=== PATIENT | female | born 1985 | race Caucasian/White ===

== ENCOUNTER 2017-12-06 04:38 | Emergency (ER) | payer MEDICAID, SELFPAY ==
[2017-12-06 04:38] VITALS: BP 155/90; PULSE 81; RESP 24; TEMP 36.9; O2SAT 98; BMI 36.1
--- NOTE | 2017-12-06 04:50 | CT_ITS ---
STUDY: CT ABDOMEN AND PELVIS WITHOUT CONTRAST REASON FOR EXAM: Female, 32 years old. Right lower quadrant pain, nausea, prior , history of asthma and diabetes. RADIATION DOSAGE (If Supplied By Facility): CTDIvol = ( 17.84 ) mGy, DLP = ( 976.31 ) mGycm TECHNIQUE: Transaxial 2.5 mm images were obtained from the dome of the diaphragm to the symphysis pubis without oral contrast, and without intravenous contrast. Sagittal and coronal images were reconstructed. This examination is limited for the evaluation of gastrointestinal, solid organs and vascular structures due to the lack of intravenous and oral contrast. There is obesity, the entirety of soft tissue is not imaged. Individualized dose optimization techniques were used for this CT. COMPARISON: None. FINDINGS: The visualized lung bases are unremarkable. The visualized portions of the heart are within normal limits. Streak artifact caused by metallic left nipple jewelry. Normal liver. Normal gallbladder heterogeneous lumen and extrahepatic biliary system. Normal spleen. Normal pancreas. Normal bilateral adrenal glands. Normal right kidney. Normal left kidney. Uro Normal visualized stomach. Normal small intestine. Normal colon. The appendix is visualized and appears normal. Image [id number] series 2. Normal abdominal aorta. Normal inferior vena cava. There is borderline retroperitoneal lymphadenopathy with enlarged nodes no greater than 10mm in the short axis diameter. Normal urinary bladder. Normal visualized uterus and adnexa. There are prominent tortuous pelvic vessels possible varices. There is a small umbilical and infraumbilical hernia containing fat. Postsurgical changes anterior lower abdominal wall consistent with history. Mild degenerative changes of the lower lumbar facet joints. Sclerosis of the bilateral sacroiliac joints along the iliac side consistent with sacroiliitis condensans. CT/Abdomen/Pelvis without Cont IMPRESSION: Heterogeneous gallbladder lumen may be due to small sludge or tiny calculi. No gallbladder inflammation or biliary obstruction. There is no obstructive uropathy, obstructive renal or ureteral calculi. There is no appendicitis, colitis, diverticulitis, ascites, abscess, collection, perforation or obstruction. Possible pelvic varices. Borderline sized indistinct retroperitoneal lymph nodes of unclear etiology. Other nonacute findings as outlined above. Electronically Signed: Leanne Monroy MD at 6:07 EDT , Service support ,
[2017-12-06] MEDS: 0.9% Normal Saline 1,000 ML 125 ML IV (04:56)
[2017-12-06] MEDS: Morphine 4 MG/ML Syringe IV (04:56)
[2017-12-06] MEDS: Ondansetron 4 MG/2 ML Vial IV (04:56)
[2017-12-06 05:23] LABS: Absolute Lymphocyte Count 2.13 X10^3/ul (0.83-4.51); Absolute Neutrophil Count 2.8 X10^3/uL (2.0-7.7); Basophil# 0.08 X10^3/uL; Basophil% 1.3 % (0-1); Eosinophil# 0.23 X10^3/uL; Eosinophils% 3.9 % (0-5); Hematocrit 39.4 % (37-47); Hemoglobin 13.2 g/dl (12.0-15.0); Lymphocyte # 2.13 X10^3/ul (4.0); Lymphocyte % 35.9 % (19-41); Mean Corp Hgb Conc 33.5 g/gl (32-36); Mean Corpuscular Hgb 29.9 pg (27.0-32.0); Mean Corpuscular Volume 89.1 fL (81-99); Mean Platelet Vol. 11.8 fl (6.2-12.0); Monocyte% 11.8 % (0-10); Neutrophil # 2.78 X10^3/uL (2.7-7.7); Neutrophil % 46.9 % (47-70); Platelet Count 159 K/mm3 (150-450); RBC Distribution Width CV 13.4 % (11.6-14.6); RBC Distribution Width SD 43.2 fl (35.1-43.9); Red Blood Count 4.42 M/mm3 (4.2-5.4); White Blood Count 5.9 K/mm3 (4.4-11.0)
[2017-12-06 05:25] LABS: POSITIVE COUNT NO; POSITIVE DIFFERENTIAL NO; POSITIVE MORPHOLOGY NO
[2017-12-06 05:30] LABS: AST(SGOT) 42 U/L (15-37); Alanine Aminotransfer ALT/SGPT 54 U/L (13-56); Albumin, Serum 3.2 g/dL (3.2-5.0); Alkaline Phosphatase 122 U/L (45-117); Anion Gap 9 (5-15); BUN 9 mg/dL (7-18); BUN/Creat Ratio 12.9 RATIO (10-20); Bilirubin, Direct 0.05 mg/dL (0.00-0.30); Calcium,Total 8.2 mg/dL (8.5-10.1); Chloride 107 mmol/L (98-107); EST Glomerular Filtration Rate 104 mL/min (>60); Est Glom Filt Rate - Afr Amer 126 mL/min (>60); Estimated Creatinine Clearance 113.24 ml/min; Globulin 3.5 g/dL (2.2-4.2); Glucose 136 mg/dL (74-106); Lipase 144 U/L (73-393); Protein, Total 6.7 g/dL (6.4-8.2); Sodium Level 141 mmol/L (136-145)
--- NOTE | 2017-12-06 05:35 | ED.VISSUMM ---
- ER Visit Summary Date of Service: 12/06/17 Chief Complaint: [] Right lower abdominal pain History of Present Illness: The patient is a 32 F [] with right lower abdominal pain for last 8 hours gradual onset continuous cramping sharp and dull in severity that is moderate. Nausea associated. Normal bowel movement. Recent. Normal. Use ibuprofen. No vaginal discharge. Physical Examination: [] Vital signs reviewed General: Well-nourished well-developed Head: Normocephalic atraumatic Eyes: Pupils equal round and reactive to light extraocular movements intact ENT: TMs clear no hemotympanum no trauma Neck: Nontender full range of motion Cardiovascular: Regular rate rhythm no murmurs normal S1-S2 Respiratory: No distress clear to auscultation bilaterally chest nontender Abdomen: Soft her right lower quadrant. No guarding or nondistended normal bowel sounds no masses Back: Nontender no CVA tenderness Extremities: Nontender active range of motion ?4 extremities no trauma Skin: Normal color no trauma Neuro alert oriented cranial nerves II through XII intact normal strength sensation reflexes Test Results: [] Emergency Department Course and Treatment: [] Given IV fluids Zofran and morphine. Lab work and CT abdomen pelvis obtained. It shows nothing acute. No leukocytosis. Alk phos 122 and AST of 42. These are only mildly elevated. Lipase negative. negative. CT abdomen pelvis shows no acute disease. No appendicitis. Patient given a dose of Dilaudid also for her pain. Her pain is resolved after dose of morphine and Dilaudid. At this time, do not feel the patient has an acute intra-abdominal emergency. I have a low suspicion for gallstones. There were not seen on CAT scan. She has no tenderness up high. All her tenderness is down low. Could be an ovarian cyst. Is not seen on scan. I do not think she has a torsion. I feel she can follow-up as an outpatient. Treatment Plan: [] Disposition: [] Impression: [] Right lower abdominal pain This note was generated with [employer] dictation software. It may contain incorrect words, spelling, and punctuation that were not noted in review of the chart prior to signing ED Disposition - Plan for ED Patient: Chief Complaint: Abd Pain Referrals: Care Physician,No Primary [Primary Care Provider] -
[2017-12-06 05:36] LABS: Pregnancy, Serum, hCG Quali. NEGATIVE Negative (0-9 Nonpreg)
[2017-12-06] MEDS: HYDROmorphone 0.5 MG/0.5 ML SYRINGE IV (06:00)
--- NOTE | 2017-12-06 06:23 | ED.DEP ---
ED Disposition - Plan for ED Patient: Disposition: Home or Assisted Living Chief Complaint: Abd Pain Instructions: ED Abdominal Pain Unkn Cause Prescriptions: Hydrocodone Bitart/Apap 5-325 [[place] 5MG-325MG] 1 tab PO Q6H PRN PRN 3 Days #10 tab PRN Reason: Pain Referrals: Care Physician,No Primary [Primary Care Provider] - Lorenzo Marie MD [STAFF PHYSICIAN] -
[2017-12-06 06:28] VITALS: BP 119/72; PULSE 77; RESP 18; O2SAT 95
== END 2017-12-06 06:41 | disposition home or self-care (01) ==
PROVIDERS: Emergency Provider Emergency Medicine
DX: R10.31 Right lower quadrant pain (principal); R11.0 Nausea; E66.9 Obesity, unspecified; J45.909 Unspecified asthma, uncomplicated; E11.9 Type 2 diabetes mellitus without complications; Z72.0 Tobacco use
CPT/HCPCS: 74176; 80048; 80076; 83690; 84703; 85025; 96361; 96374; 96375; 99284; J7030; J2405

== ENCOUNTER 2018-08-20 22:51 | Emergency (ER) | payer MEDICAID, SELFPAY ==
[2018-08-20 22:51] VITALS: BP 165/73; PULSE 87; PULSE 90; RESP 16; TEMP 36.7; O2SAT 96; O2SAT 98; BMI 35.5
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
--- NOTE | 2018-08-21 00:32 | ED.DEP ---
ED Disposition - Plan for ED Patient: Disposition: Home or Assisted Living Instructions: ED Contusion Upper Ext Referrals: Kyler Prasad MD [STAFF PHYSICIAN] - 1 Week if not improving Additional Instructions: Ice and elevate right hand to decrease pain and swelling. Motrin for pain and swelling and Tylenol. Follow-up if not improving.
[2018-08-21 00:34] VITALS: BP 124/82; PULSE 72; RESP 18; O2SAT 99
== END 2018-08-21 00:34 | disposition home or self-care (01) ==
PROVIDERS: Emergency Provider Emergency Medicine
DX: S60.221A Contusion of right hand, initial encounter (principal); Y04.0XXA Assault by unarmed brawl or fight, initial encounter; Y93.89 Activity, other specified; Y92.9 Unspecified place or not applicable; F31.9 Bipolar disorder, unspecified; E11.9 Type 2 diabetes mellitus without complications; Z79.899 Other long term (current) drug therapy; Z72.0 Tobacco use
CPT/HCPCS: 73130; 99282

== ENCOUNTER → 2019-07-16 13:36 | Outpatient (CLI) | payer MEDICAID, SELFPAY ==
[2019-07-16 10:17] VITALS: BMI 35.5
[2019-07-16 13:46] LABS: Mucous, Urine 0 SEEN /hpf (<or=2+)
[2019-07-16 13:51] LABS: Color, Urine Yellow (Yellow); Glucose, Dipstick 50 mg/dl (Normal); Ketone-Dipstick 5 mg/dl (Negative); Leukocyte Esterase-Dipstick 500 /ul (Negative); Nitrite-Dipstick Positive (Negative); Occult Blood-Urine 25 /ul (Negative); Protein-Dipstick 30 mg/dl (Negative); Specific Gravity, Urine 1.025 (1.002-1.030); Urine Bilirubin Dipstick Negative (Negative); Urine Clarity Cloudy (Clear); Urine Urobilinogen Normal (Normal)
[2019-07-16 13:58] LABS: Bacteria 1+ /hpf (None Seen); Red Blood Cells-Urine 0-5 SEEN /hpf (0-5); Squamous Epithelial Cells - UA 5-10 SEEN /hpf (5-10); Transitional Epithelial - Ur 0 SEEN /hpf (0-5); White Blood Cells 25-50 SEEN /hpf (0-5)
== END ==
PROVIDERS: Referring Provider Nurse Practitioner Family; Visit Provider Nurse Practitioner Family
DX: R30.0 Dysuria (principal)
CPT/HCPCS: 81001; 87077; 87086; 87088; 87186

== ENCOUNTER → 2020-02-15 12:42 | Outpatient (CLI) | payer MEDICAID, SELFPAY ==
[2019-07-16 10:17] VITALS: BMI 35.5
--- NOTE | 2020-02-15 12:50 | RAD_ITS ---
STUDY: X-RAY - CERVICAL SPINE REASON FOR EXAM: Female, 34 years old. CERVICAL RADICUL MAX -- BILAT NECK PAIN MORE ON L SIDE BUT RADIATES -- R ARM PAIN AND NUMBNESS -- X 1 WEEK -- NKI TECHNIQUE: 5 view(s) of the cervical spine were obtained including oblique views. COMPARISON: None FINDINGS: Normal anterior atlantoaxial articulation. Normal odontoid process. Normal cervical lordosis. Normal vertebral bodies and endplates. Normal disc space heights. Normal visualized intervertebral neuroforamina. The soft tissue structures are unremarkable. RAD/Cerv Spine 4 or 5 Views IMPRESSION: Normal x-ray examination of the visualized cervical spine. Electronically Signed: Luis Cat, at 15:38 EDT , Service support ,
== END ==
PROVIDERS: PCP Internal Medicine; Referring Provider Chiropractor; Visit Provider Chiropractor
DX: M54.12 Radiculopathy, cervical region (principal)
CPT/HCPCS: 72050

== ENCOUNTER 2020-10-10 05:35 | Emergency (ER) | payer MEDICAID, SELFPAY ==
[2020-06-17 15:38] VITALS: BMI 37.3
[2020-10-10 05:38] VITALS: BP 175/99; PULSE 69; RESP 16; TEMP 36.4; O2SAT 99; BMI 38.3
--- NOTE | 2020-10-10 05:50 | RAD_ITS ---
STUDY: X-RAY - UNILATERAL RIBS ( LEFT ) WITH CHEST REASON FOR EXAM: Female, 34 years old. pain, injury TECHNIQUE - RIBS: 4 view(s) of the ribs. TECHNIQUE - CHEST: Single frontal view of the chest. COMPARISON: None. FINDINGS - RIBS: Normal visualized ribs without a demonstrated fracture. FINDINGS - CHEST: The lungs are clear and expanded. There is no demonstrated pleural abnormality. Normal size heart. Normal mediastinum and akbar. Normal visualized pulmonary arteries. Normal visualized aortic arch and descending thoracic aorta. Normal visualized thoracic spine. Normal visualized ribs, clavicles, and shoulders. There is no demonstrated abnormality of the visualized soft tissue structures of the upper abdomen. RAD/Ribs Uni Min 3V w/PA Chest IMPRESSION: RIBS: Normal x-ray examination of the ribs. CHEST: Normal x-ray examination of the chest. Electronically Signed: Tim Bryant DO at 6:24 EDT Tel , Service support ,
[2020-10-10] MEDS: Lidocaine 5% Patch 1 PATCH TOPICAL (05:59)
[2020-10-10] MEDS: morphine 8 MG/ML Syringe IM (05:59)
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
[2020-10-10 07:01] VITALS: BP 160/79; PULSE 80; RESP 16; O2SAT 96
== END 2020-10-10 07:02 | disposition home or self-care (01) ==
PROVIDERS: Emergency Provider Emergency Medicine; PCP Internal Medicine
DX: S20.212A Contusion of left front wall of thorax, initial encounter (principal); F17.210 Nicotine dependence, cigarettes, uncomplicated; X58.XXXA Exposure to other specified factors, initial encounter
CPT/HCPCS: 71101; 96372; 99283

== ENCOUNTER 2021-01-07 17:55 | Outpatient (RCR) | payer MEDICAID, SELFPAY ==
[2020-12-30 13:38] VITALS: BMI 38.3
--- NOTE | 2021-01-07 18:41 | HP.PTEVAL_ITS ---
Patient's Visit Information CHRISTINE ESCOBEDO is a 35 year old F referred to Physical Therapy by ADRIANA Varghese with a diagnosis of R ankle strain of ankle and foot.. Date of Evaluation: 01/07/21 Physical Therapist: ALEX Savage - Visit Plan Frequency: 2x /Week Duration: 6 Weeks Plan: 2X/ week for 6 weeks for R ankle AROM, PROM, AAROM, stretching,, decrease swelling, strength, balance and proprioception, gait training with HEP. HEP: seated heel and toe raises, towel gastroc stretch, toe scrunches - Subjective Pt stepped in a hole. She has broken it as well. This last time she stepped in a hole and rolled it. It happened about 3 weeks ago. [facility] and he was put in a brace and is to wear it for 10 days. X-rays showed no fracture. She was not put on crutches. Now it is tolerable but she has not bee n on it all day. When she is on it, it swells and is really hard to walk on it and she is getting pain in her calf and in her knee. She has lost some movement in her toes too. The swelling is tolerable unless she is on her foot. It feels like it is getting better it is just slow. She is back to work 5 days a week. - Pain R ankle pain Pain Intensity (Out of 10): 4 Pain Intensity Range: 8 Comment: especially on days when on feet - Objective Gait: walks with decrease stance time on the R LE and decreased heel to toe gait pattern. R ankle AROM: -12 degrees from neutral and 40 PF, INV 24 degrees and EV to neutral. L ankle AROM: 7 DF, 65 PF, 40 INV, 12 EV. R Fig 8 55.1, Medial to lat mal 27.7. L fig 8 523 25.4. Palpation: tender along the ligaments along the R lateral ankle... very swollen. Increase pain with active L ankle DF, stretching with a towel roll. Advised pt to keep moving her ankles to do the exercises but not to go into pain - Goals Goal 1:: I HEP Goal Time Frame: 4-6 Weeks Goal 2:: Increase L ankle AROM 5 degrees DF and 60 degrees PF Goal Time Frame: 4-6 Weeks Goal 3:: be able to walk without an antalgic gait Goal Time Frame: 4-6 Weeks Goal 4:: Increase L ankle strength to 4/5 all 4 planes Goal Time Frame: 4-6 Weeks Goal 5:: Be able to slb on the L for 30 sec with good stability and no pain Goal Time Frame: 4-6 Weeks - Rehabilitation Potential Rehabilitation Potential: Good - Anticipated Interventions Patient/Client Instruction: Educate patient on: Condition, Plan of Care For the Purpose of:: To decrease pain, To decrease swelling/inflammation, To increase ROM, To improve nutrient delivery to tissue, To increase oxygenation perfusion, To improve muscle performance and motor function, To improve ability to perform ADL's, To increase tolerance to activity/condition/position, To improve performance and independence with ADL's, To decrease level of supervision to perform tasks, To improve ability of physical actions for home/community/work/leisure, To improve gait and locomotor functions, To improve health of tissue, To decrease soft tissue restriction, To increase flexibility/ROM, To improve balance, To improve safety with gait Therapeutic Exercise to Include: Strength training, Balance training, Flexibilty training, Gait and locomotor training, Neuromotor development, Passive ROM, Active ROM For the Purpose of:: To decrease pain, To decrease swelling/inflammation, To increase ROM, To improve nutrient delivery to tissue, To improve muscle performance and motor function, To improve ability to perform ADL's, To increase tolerance to activity/condition/position, To improve performance and independence with ADL's, To decrease level of supervision to perform tasks, To improve ability of physical actions for home/community/work/leisure, To improve gait and locomotor functions, To improve health of tissue, To decrease soft tissue restriction, To increase flexibility/ROM, To improve endurance, To improve balance, To improve safety with gait Functional Training to Include: Gait training For the Purpose of:: To improve gait and locomotor functions, To improve safety with gait Manual Therapy Techniques to Include: Mobilization, Passive ROM, Soft tissue mobilization For the Purpose of:: To increase ROM, To improve nutrient delivery to tissue, To improve muscle performance and motor function, To improve ability to perform ADL's, To increase tolerance to activity/condition/position, To improve performance and independence with ADL's IF ES: Yes Cryotherapy (ice pack, ice massage): Yes Thermo therapy (hot pack): Yes For the Purpose of:: To decrease pain, To decrease swelling/inflammation, To increase ROM, To improve nutrient delivery to tissue Thank you for the opportunity to evaluate your patient. For Medicare and Medicare HMO plans, please review the plan of care and approve it. It will need to be FAXED BACK to us at [phone] for Medicare purposes. For Medicare only, by signing this I certify the plan of care. Please let me know if there are questions or concerns regarding this plan of care. Physician Signature: Date:
--- NOTE | 2021-04-28 08:55 | HP.PT.NRP ---
CHRISTINE ESCOBEDO was seen in my office for initial evaluation on 01/07/21. The following Plan of Care was established for this patient: Initial Frequency: 2x /Week Initial Duration: 6 Weeks Patient/Client Instruction: Educate patient on: Condition, Plan of Care For the Purpose of:: To decrease pain, To decrease swelling/inflammation, To increase ROM, To improve nutrient delivery to tissue, To increase oxygenation perfusion, To improve muscle performance and motor function, To improve ability to perform ADL's, To increase tolerance to activity/condition/position, To improve performance and independence with ADL's, To decrease level of supervision to perform tasks, To improve ability of physical actions for home/community/work/leisure, To improve gait and locomotor functions, To improve health of tissue, To decrease soft tissue restriction, To increase flexibility/ROM, To improve balance, To improve safety with gait Therapeutic Exercise to Include: Strength training, Balance training, Flexibilty training, Gait and locomotor training, Neuromotor development, Passive ROM, Active ROM For the Purpose of:: To decrease pain, To decrease swelling/inflammation, To increase ROM, To improve nutrient delivery to tissue, To improve muscle performance and motor function, To improve ability to perform ADL's, To increase tolerance to activity/condition/position, To improve performance and independence with ADL's, To decrease level of supervision to perform tasks, To improve ability of physical actions for home/community/work/leisure, To improve gait and locomotor functions, To improve health of tissue, To decrease soft tissue restriction, To increase flexibility/ROM, To improve endurance, To improve balance, To improve safety with gait Functional Training to Include: Gait training For the Purpose of:: To improve gait and locomotor functions, To improve safety with gait Manual Therapy Techniques to Include: Mobilization, Passive ROM, Soft tissue mobilization For the Purpose of:: To increase ROM, To improve nutrient delivery to tissue, To improve muscle performance and motor function, To improve ability to perform ADL's, To increase tolerance to activity/condition/position, To improve performance and independence with ADL's IF ES: Yes Cryotherapy (ice pack, ice massage): Yes Thermo therapy (hot pack): Yes For the Purpose of:: To decrease pain, To decrease swelling/inflammation, To increase ROM, To improve nutrient delivery to tissue This patient was last seen in our office 01/07/21. Pertinent comments regarding their Physical therapy will appear below: JUSTIN PT as pt did not schedule any more other than her initial eval. At this point I will be discontinuing this patient from physical therapy. I would be happy to see this patient again in the future if found appropriate by the physician. Thank you! Yohana Arreola, ALEX Balance/Gait/Functional tests - Balance/Special Test Scores Lower Extremity Functional Score: 51
== END 2021-01-07 19:00 | disposition home or self-care (01) ==
LOC: PT 17:55
PROVIDERS: PCP Internal Medicine; Referring Provider Physician Assistant Surgical; Visit Provider Physician Assistant Surgical
DX: S96.911D Strain of unspecified muscle and tendon at ankle and foot level, right foot, subsequent encounter (principal)
CPT/HCPCS: 97161

== ENCOUNTER → 2021-01-13 | Outpatient (CLI) | payer MEDICAID, SELFPAY | END | disposition home or self-care (01) | LOC: LABSPEC 20:45 | PROVIDERS: PCP Internal Medicine; Visit Provider Physician Assistant Surgical | DX: R30.0 Dysuria (principal) | CPT/HCPCS: 87086; 87088 ==

== ENCOUNTER → 2021-01-21 | Outpatient (CLI) | payer MEDICAID, SELFPAY | END | disposition home or self-care (01) | LOC: LABSPEC 15:51 | PROVIDERS: PCP Internal Medicine; Visit Provider Physician Assistant | DX: U07.1 COVID-19 (principal); R43.0 Anosmia; R43.2 Parageusia | CPT/HCPCS: 87635; U0005; U0003 ==

== ENCOUNTER → 2022-05-28 | Outpatient (CLI) | payer MEDICAID, SELFPAY ==
[2022-05-28 12:44] LABS: Mucous, Urine 0 SEEN /hpf (<or=2+)
[2022-05-28 12:47] LABS: Color, Urine Yellow (Yellow); Glucose, Dipstick 1000 mg/dl (Normal); Ketone-Dipstick 5 mg/dl (Negative); Leukocyte Esterase-Dipstick 100 /ul (Negative); Nitrite-Dipstick Negative (Negative); Occult Blood-Urine 50 /ul (Negative); Protein-Dipstick 30 mg/dl (Negative); Specific Gravity, Urine 1.015 (1.002-1.030); Urine Bilirubin Dipstick Negative (Negative); Urine Clarity Sl. Cloudy (Clear); Urine Urobilinogen Normal (Normal); Urine pH 6.5 (5.0 - 8.0)
[2022-05-28 12:59] LABS: Bacteria 2+ /hpf (None Seen); Red Blood Cells-Urine 0-5 SEEN /hpf (0-5); Squamous Epithelial Cells - UA 5-10 SEEN /hpf (5-10); White Blood Cells 10-25 SEEN /hpf (0-5)
== END | disposition home or self-care (01) ==
LOC: LABSPEC 12:38
PROVIDERS: PCP Internal Medicine; Referring Provider Physician Assistant Surgical; Visit Provider Physician Assistant Surgical
DX: R30.0 Dysuria (principal)
CPT/HCPCS: 81001; 87077; 87086; 87088; 87186

== ENCOUNTER 2024-05-03 23:05 | Emergency (ER) | payer OTHER, SELFPAY ==
[2024-05-03 23:08] VITALS: BP 147/94; PULSE 109; RESP 24; TEMP 36.6; O2SAT 95; BMI 35.8
--- NOTE | 2024-05-03 23:17 | ED.VIS.DYS ---
HPI History of Present Illness Chief Complaint: Shortness of Breath [facility] Medical History (Updated 05/04/24 @ 00:[address] John Echevarria, DO) Contact with and (suspected) exposure to other viral communicable diseases Acute pharyngitis, unspecified Acute bronchitis, unspecified Sebaceous cyst of left axilla Encounter for screening for COVID-19 Home Medications ?Medication ?Instructions ?Recorded ?Last Taken ?Type ibuprofen 600 mg tablet 600 mg PO Q6H PRN PRN Pain Score 10/10/20 Unknown Rx 1-02/22 #20 tabs albuterol sulfate 90 mcg/actuation 2 inh inhalation Q6H PRN shortness 05/04/24 Unknown Rx breath activated powder inhaler of breath or wheezing #1 ea prednisone 50 mg tablet 50 mg PO DAILY 5 days #5 tabs 05/04/24 Unknown Rx Allergy/AdvReac Type Severity Reaction Status Date / Time No Known Allergies Allergy Verified 05/03/24 23:08 Surgical History History of Social History Smoking Status: Current every day smoker tobacco type: cigarettes alcohol intake: never EXAM Physical Exam Const Vital Signs: 05/03/24 23:08 05/03/24 23:26 05/04/24 00:02 Temperature 98 F Temperature Source Oral Pulse Rate 109 H 101 H Respiratory Rate 24 H 26 H Respiratory Effort Short of Breath Respiratory Depth Respiratory Pattern Tachypnea Normal Blood Pressure 147/94 H Blood Pressure Mean 111 Pulse Ox 95 Oxygen Delivery Method Room Air 05/04/24 00:03 05/04/24 00:33 Temperature Temperature Source Pulse Rate 91 Respiratory Rate 20 H Respiratory Effort Normal Non-Labored Respiratory Depth Normal Respiratory Pattern Normal Blood Pressure Blood Pressure Mean Pulse Ox 98 Oxygen Delivery Method Room Air MDM MDM MDM Narrative Medical decision making narrative: HISTORY OF PRESENT ILLNESS: 38-year-old female notes she has been sick for several weeks. She notes cough and occasional shortness of breath. Denies any shortness of breath here today. Denies chest pain. Notes she works as a [employer] and has been exposed to COVID and flu. She has not been tested as of yet. She is requesting a COVID and flu test. The patient denies recent surgery in the last 4 weeks or immobilization in the last 3 days, denies previous diagnosis of DVT or PE, hemoptysis, unilateral leg swelling or malignancy with treatment the last 6 months or palliative. No estrogen use noted. REVIEW OF SYSTEMS: Pertinent positives: Cough, shortness of breath Pertinent negatives: chest pain, fever, leg swelling PHYSICAL EXAM: Nursing triage notes reviewed, Vital signs reviewed Constitutional: please see [facility] HENT: MMM Eyes: Pupils equal round and reactive to light, Extraocular muscles intact Neck: No stridor, no JVD, full neck ROM Lungs: Clear to auscultation, coarse breath sounds, no wheezing or rales. No increased work of breathing, no conversational dyspnea, no accessory muscle use, no nasal flaring. No respiratory distress noted Heart: Regular rate and rhythm, No murmurs, No rubs and No gallops, 2+ distal pulses (radial, femoral, posterior tibial) in all extremities Abdomen: Soft, there is no tenderness, rigidity, rebound or guarding, no obvious peritoneal signs, no palpable pulsatile abdominal masses, no auscultated abdominal bruit : No CVAT Extremities: No edema Neuro: No new focal neurological deficits, cranial nerves II through XII intact, 5/5 strength in all present extremities. Intact sensation to light touch in all present extremities, 2+ reflexes bilateral patella tendons. Skin: No rash or lesions noted MEDICAL DECISION MAKING: Chief Complaint: Cough, shortness of breath External records reviewed: Reviewed prior allergies, problem list Factors affecting care: none Social determinants of health: none History obtained from others: none Consults: none [facility] Narrative: Patient was initially hemodynamically stable, tachycardic to 109, tachypneic to 24, she is afebrile and saturating well on room air. I considered the following differential diagnosis: COVID, flu, RSV, bacterial pneumonia Cannot test specifically for COVID RSV and flu as patient is having symptoms for weeks without benefit from knowing specific virus as there is no specific treatment. I obtained an x-ray to rule out bacterial pneumonia. Per patient's request I obtained a COVID flu and RSV swab. ALL IMAGES (IF OBTAINED) HAVE BEEN PERSONALLY REVIEWED AND INTERPRETED BY MYSELF. I have personally reviewed the patient's chest x-ray. Chest x-ray is unremarkable for pulmonary edema, pneumothorax, pneumonia or focal cardiopulmonary abnormality. Upon reassessment patient felt better after nebulizer albuterol. Heart rate improved to 90. Retrograde improved to 20. Lungs remain clear. The synthesis of the patient's history, physical exam, labs and images suggest likely bronchitis. No indication for antibiotics at this time. Will give steroids (prednisone 50 mg daily). Will give Tylenol and ibuprofen instructions. Will give as needed albuterol inhaler prescription as well. The patient is appropriate for discharge home. The patient and/or family, caregivers express understanding. The patient and/or family, caregivers agrees with the plan. Shared decision making: I will have a discussion with the patient and or visitors regarding risk/benefits of further testing or admission. They will be made aware of of the risk/benefits inherent in this decision they will be given the opportunity to voice understanding. Total critical care time today provided was at least 0minutes. This excludes separately billable procedures. Critical care time (if documented) is secondary to the patient having high probability of clinically significant/life threatening deterioration in the patient's condition which required my urgent intervention. Impression: 1. Cough 2. Dyspnea Dispo: Discharge home This note was generated with [employer] dictation software. It may contain incorrect words, spelling, and punctuation that were not noted in review of the chart prior to signing. Radiography Diagnostic Testing: Clinical Impression(s) from Imaging Studies Chest X-Ray 05/03/24 23:55 IMPRESSION: No radiographic evidence of acute cardiopulmonary disease. Electronically Signed: Denis Pennington MD at 0:27 EST Reading Location ID and State: [address] [place] [address] Tel , Service support , Discharge Plan Triage Chief Complaint: Shortness of Breath Other Complaint: Cold Sx ED Provider: John Echevarria Dx/Rx/DC Orders Clinical Impression: Acute bronchitis, unspecified Instructions: ED Bronchitis, No Antibiotic (Adult) Prescriptions: New prednisone 50 mg tablet 50 mg PO DAILY 5 Days Qty: 5 0RF albuterol sulfate 90 mcg/actuation aerosol powdr breath activated 2 inh inhalation Q6H PRN (Reason: shortness of breath or wheezing) Qty: 1 3RF No Action ibuprofen 600 mg tablet 600 mg PO Q6H PRN PRN (Reason: Pain Score 1-10/10) Qty: 20 0RF Primary Care Provider: Sammie Paulino NP Referrals: Sonia Kent MD [Med Staff - [employer] Operator] - Activity Restrictions/Additional Instructions: Thank you for trusting us with your care today! I suspect you are suffering from bronchitis which is inflammation of your airways. This is not caused by bacteria and therefore is not treated with antibiotics. I did prescribe you a short course of steroids to help with inflammation. I also prescribed albuterol inhaler to take as needed for additional assistance with breathing. Please take Tylenol (2 pills, 650 mg), ibuprofen (2 pills, 400 mg) every 6 hours as needed for pain and fever control. Please return to the emergency department if your symptoms change or worsen. Please follow with your primary care physician for further outpatient evaluation and management. Print Language: Andorran Disposition Disposition: Home, Self Care
[2024-05-03 23:26] VITALS: PULSE 101; RESP 26
[2024-05-03] MEDS: Albuterol 2.5 MG/3 ML VIAL.NEB. INHALATION (23:26)
--- NOTE | 2024-05-03 23:55 | RAD_ITS ---
EXAM: XR CHEST, 2 VIEWS CLINICAL INDICATION: cough TECHNIQUE: Frontal and lateral views of the chest. COMPARISON: Two-view chest 07/16/2021 FINDINGS: LUNGS AND PLEURAL SPACES: Unremarkable. No consolidation or edema. No pneumothorax. No effusion. HEART: Unremarkable. Cardiac silhouette not enlarged. MEDIASTINUM: Central airways and mediastinal contour are unremarkable. BONES/JOINTS: Unremarkable. No acute fracture. SOFT TISSUES: Unremarkable. RAD/Chest PA and Lateral IMPRESSION: No radiographic evidence of acute cardiopulmonary disease. Electronically Signed: Denis Pennington MD at 0:27 EST ,
[2024-05-04 00:03] VITALS: O2SAT 98
[2024-05-04 00:33] VITALS: PULSE 91; RESP 20; O2SAT 98
[2024-05-04 00:35] VITALS: BP 138/78; PULSE 91; RESP 20; TEMP 36.6; O2SAT 98
== END 2024-05-04 00:35 | disposition home or self-care (01) ==
PROVIDERS: Emergency Provider Emergency Medicine; PCP Nurse Practitioner Family; Visit Provider Emergency Medicine
DX: J20.9 Acute bronchitis, unspecified (principal); Z20.828 Contact with and (suspected) exposure to other viral communicable diseases; F17.210 Nicotine dependence, cigarettes, uncomplicated
CPT/HCPCS: 71046; 94640; 99283

== ENCOUNTER 2024-11-03 13:04 | Emergency (ER) | payer BC, SELFPAY ==
[2024-11-03 13:05] VITALS: BP 147/88; PULSE 101; RESP 16; TEMP 36.4; O2SAT 100; BMI 34.6
--- NOTE | 2024-11-03 13:26 | EX.ED.DYSGE1 ---
HPI History of Present Illness Chief Complaint: Abscess Informant: patient and parent Narrative Narrative: Here with mother increasing swelling left face near the ear, she tried to express it is only bloody drainage. No fever or chills. She is a diabetic. Feels more pressure in the area. Denies history of kidney injury. Prior similar symptoms: No PFSH PFSH Medical History Contact with and (suspected) exposure to other viral communicable diseases Acute pharyngitis, unspecified Acute bronchitis, unspecified Sebaceous cyst of left axilla Encounter for screening for COVID-19 Home Medications ?Medication ?Instructions ?Recorded ?Last Taken ?Type ibuprofen 600 mg tablet 600 mg PO Q6H PRN PRN Pain Score 10/10/20 Unknown Rx 1-10/10 #20 tabs cephalexin 500 mg capsule 500 mg PO Q6 #20 CAPSULES 11/03/24 Unknown Rx ibuprofen 600 mg tablet 600 mg PO Q6H PRN PRN pain #20 11/03/24 Unknown Rx TABLETS sulfamethoxazole 800 1 tab PO BID #10 TABLETS 11/03/24 Unknown Rx mg-trimethoprim 160 mg tablet Allergy/AdvReac Type Severity Reaction Status Date / Time No Known Allergies Allergy Verified 11/03/24 13:08 Surgical History History of Social History Smoking Status: Current every day smoker tobacco type: cigarettes alcohol intake: never ROS ROS ED Constitutional Constitutional ED: Denies fever(s) Cardiovascular Cardiovascular: Denies chest pain Respiratory/Chest Respiratory/Chest: Denies cough Gastrointestinal Gastrointestinal: Denies diarrhea or vomiting Musculoskeletal Musculoskeletal: Denies none Integumentary Reports abscess; Denies rash Neurologic Neurologic: Denies weakness EXAM Physical Exam Const Vital Signs: 11/03/24 13:05 Temperature 97.6 F L Temperature Source Oral Pulse Rate 101 H Respiratory Rate 16 Blood Pressure 147/88 H Blood Pressure Mean 107 Pulse Ox 100 Oxygen Delivery Method Room Air Positive well nourished and well developed General Appearance ED: well developed and NAD HEENT Reports moist mucous membranes HEENT Narrative: Left face superior to the tragus some tenderness very slight fluctuance mild erythema. Minimal erythema behind the ear. No auricular involvement at this time. No drainage. normocephalic Eyes General Eye ED: Yes normal appearance of both eyes Neck full ROM Chest Wall Chest: Negative for tenderness Resp normal respiratory effort and normal air movement Effort and Inspection: symmetric chest movement; Negative for respiratory distress Cardio regular rate, regular rhythm and no murmurs Peripheral Pulses: pulses 2+ throughout GI normal to inspection, nondistended, normoactive bowel sounds and non-tender Palpation: Negative for guarding or rebound tenderness present Extremity normal to inspection General Extremety ED: Negative for edema or tenderness General Extremity: Negative for edema Neuro oriented x3 and no sensory deficits noted Sensorium / Orientation: awake and alert Skin no rashes or lesions noted and no wounds MDM MDM MDM Narrative Medical decision making narrative: Interventions / MDM: Differential diagnosis: Facial cellulitis, history of diabetes Diagnosis considered but do not suspect: No abscess on needle decompression. My EKG interpretation: N/A Imaging independently reviewed and interpreted by myself: N/A External documents reviewed: N/A Test considered but not ordered:N/A ED course: Patient reports increasing pain swelling with bloody drainage at home. There is very minimal fluctuance however with patient reporting increasing swelling discussed needle decompression for which she agrees. Preparation being made. Oral Motrin Keflex Bactrim started. Procedure note: Verbal consent. Normal sterile conditions. Alcohol prep of the skin, 1 cc of 1% lidocaine used for local analgesia. Initial 18-gauge needle right through the center of fluctuance mild bloody drainage mild fluid drainage no exudates. Additional puncture inferior to this at the entrance of the initial analgesic placement. Again clear fluid no exudates. Patient tolerated procedure well. Patient be continued on antibiotics and NSAIDs. Return precaution discussed. Re-evaluation: stable Disposition discussed with patient/family/significant other: Patient and family Case discussed with consulting clinician: N/A This note was generated with [employer] dictation software. It may contain incorrect words, spelling, and punctuation that were not noted in checking the note before signing. Discharge Plan Triage Chief Complaint: Abscess ED Provider: Norman Martinez Dx/Rx/DC Orders Clinical Impression: Cellulitis of face, History of diabetes mellitus Instructions: Cellulitis Dc Prescriptions: New sulfamethoxazole-trimethoprim 800-160 mg tablet 1 tab PO BID Qty: 10 0RF cephalexin 500 mg capsule 500 mg PO Q6 Qty: 20 0RF ibuprofen 600 mg tablet 600 mg PO Q6H PRN PRN (Reason: pain) Qty: 20 0RF No Action ibuprofen 600 mg tablet 600 mg PO Q6H PRN PRN (Reason: Pain Score 1-10/10) Qty: 20 0RF Primary Care Provider: Sammie Paulino NP Referrals: Sammie Paulino NP, [employer] [Primary Care Provider] - 3-5 Days Activity Restrictions/Additional Instructions: Needle decompression in the ED there is no exudative drainage. Take and finish antibiotic as prescribed. Follow-up with your doctor. Print Language: Maori Disposition Disposition: Home, Self Care Discharge Date/Time: 11/03/24 15:10
--- OUTSIDE RECORDS SUMMARY | 2024-11-03 13:47 | XMS RPT_ITS | CCD ---
Author Organization [facility] Care Team Providers Care Longwall Foreman Name Role Phone CINDY SPARKS, DR GEOFFREY Camargo Primary Care Physician Dr. Geoffrey White Primary Care Provider Dr. Geoffrey White Referring Provider ADRIANA Toscano Attending Provider Geoffrey White MD Primary Care Provider Geoffrey White MD Primary Care Provider DR GEOFFREY WHITE MD Primary Care Physician Geoffrey White MD Primary Care Provider NO, DOCTOR ON Consulting Unavailable GIDEON ALFORD CNP Attending Unavailable GIDEON ALFORD CNP Primary Care Unavailable GIDEON ALFORD CNP Admitting Unavailable Dr. Geoffrey White Primary Care Provider Dr. Geoffrey White Referring Provider ADRIANA Ontiveros Attending Provider AXEL ALFORD DO Primary Care Physician GIDEON DOTY Primary Care Physicia n ROSY VALENZUELA Admitting Unavaila sugey CONWAY, GIDEON Sloan Primary Care Unava ilable ROSY VALENZUELA Referring Unavaila sugey STACY DO, DR QUINONEZ Attending Unavailable VIRGIL LUCERO, DR KENDAL Madera Attending Unavailable DR GEOFFREY WHITE MD Primary Care Unavailnamita e DEL ACOSTA DO Attending Unavailable AXEL ALFORD DO Primary Care Unavailable ALESSIA KAUR MD Attending Unavailable CINDY SPARKS, DR GEOFFREY Camargo Primary Care UnavailBRITNEY Galvez MD Attending Unavailable AXEL ALFORD DO Primary Care Unavailable GEOFFREY WHITE Primary Care Unavailable SAVANNAH VALVERDE Attending Unavailable LUPE GUTIERREZ Referring Unavailable GEOFFREY WHITE Primary Care Unavailable LUPE GUTIERREZ Attending Unavailable GEOFFREY WHITE Primary Care Unavailable Geoffrey White MD Primary Care Provider [phone] Lora PARKER, Gideon Primary Care Unavailable John Echevarria Attending Unavailable Medications Current Medications Medication Drug Class(es) Dates Sig (Normalized) Sig (Original) acetaminophen 325 mg / HYDROcodone bitartrate 5 mg oral tablet (4 sources) Opioid Agonist Start: 04-24-2022 acetaminophen-hydr ocodone 325 mg-5 mg oral tablet 0 Refill(s), 104.5 Start Date: 04/24/22 Status: Ordered Start: 12-06-2017 End: 12-12-2017 take 1 tablet by mouth every six hours as needed Hydrocodone-Acetaminophen Discontinued 1 TABLET PO EVERY 6 HOURS NEEDED 10 3 December 06, 2017 6:23am December 12, 2017 10:45am acetaminophen 325 mg / oxyCODONE hydrochloride 5 mg oral tablet (3 sources) Opioid Agonist Start: 12-13-2020 acetaminophen-oxyCODONE 325 mg-5 mg oral tablet 0 Refill(s), 104.5 Start Date: 12/13/20 Status: Ordered atorvastatin 20 mg oral tablet (1 source) HMG-CoA Reductase Inhibitor Start: 03-22-2023 atorvastatin 20 mg oral tablet Dose : 20 mg = 1 tab(s), Oral, Daily Start Date: 03/22/23 Status: Ordered ciprofloxacin 500 mg oral tablet (3 sources) Quinolone Antimicrobial Start: 03-24-2023 End: 03-31-2023 Cipro 500 mg oral tablet Dos e : 500 mg = 1 tab(s), Oral, q12h, X 7 day(s), # 14 tab(s), 0 Refill(s), 03/31/23 11:34:00 AM EST, Pharmacy: [facility] #[id number], 170.2, cm, 03/22/23 16:11:00 EST, Height, 109.9, kg, 03/22/23 16:24:00 EST, Dosing Weight Start Date: 03/24/23 Stop Date: 03/31/23 Status: Ordered Start: 07-18-2019 End: 05-26-2020 take 500 mg by mouth twice daily Ciprofloxacin Hcl Discontinued 500 MG PO TWICE A DAY July 18, 2019 9:12am May 26, 2020 1:07pm hold Macrobid while on this medication D3-50 50,000 UNIT CAPSULE (1 source) Start: 03-22-2023 D3-50 50,000 UNIT CAPSULE D3-50 50,000 UNIT CAPSULE, 1, 0 Refill(s), 109.1 Start Date: 03/22/23 Status: Ordered doxepin hydrochloride 75 mg oral capsule (1 source) Tricyclic Antidepressant Start: 03-22-2023 doxepin 75 mg oral capsule Dose : 75 mg = 1 cap(s), Oral, qHS Start Date: 03/22/23 Status: Ordered doxycycline monohydrate 100 mg oral capsule (2 sources) Tetracycline-class Drug Start: 03-11-2021 End: 05-28-2022 take 100 mg by mouth twice daily Doxycycline Monohydrate Active 100 MG PO TWICE A DAY March 11, 2021 6:51am ibuprofen 600 mg oral tablet (13 sources) Nonsteroidal Anti-inflammatory Drug Start: 08-27-2018 ibuprofen (MOTRIN) 600 mg tablet Take by mouth. 10/10/2020 Active Comment on above: Take by mouth. 3 ml insulin glargine 100 unt/ml pen injector (6 sources) Insulin Analog Start: 03-25-2023 End: 04-24-2023 inject 1 dose by subcutaneous injection once daily at bedtime Lantus Solostar Pen 100 units/mL 3 mL Pen Dose : 25 unit(s) =, Subcutaneous, qHS, # 15 mL, 0 Refill(s), Pharmacy: [facility] #[id number], 170.2, cm, 03/22/23 16:11:00 EST, Height, kg, 03/22/23 16:24:00 EST, Dosing Weight Start Date: 03/25/23 Stop Date: 04/24/23 Status: Ordered Start: 09-08-2022 insulin glargi ne (BASAGLAR KWIKPEN U-100 INSULIN) 100 unit/mL (3 mL) Inject 20 units once daily 10 Each 3 09/08/2022 Active Start: 09-08-2022 End: 09-08-2022 insulin glargine (LANTUS MARBELLA OSTAR U-100 INSULIN) 100 unit/mL (3 mL) Inject 10 units once daily 0 09/08/2022 09/08/2022 Discontinued Start: 08-25-2022 inject 0.1 mL by sub cutaneous injection once daily at bedtime Lantus 100 units/mL10 ml vial solution Dose : 10 unit(s) = 0.1 mL, Subcutaneous, qHS, # 10 mL, 0 Refill(s), Hyperglycemia Start Date: 08/25/22 Status: Ordered Comment on above: Inject 20 units once daily Inject 10 units once daily 0.5 unt doses 3 ml insulin lispro 100 unt/ml pen injector (6 sources) Insulin Analog Start: 03-24-2023 End: 04-23-2023 inject 1 dose by subcutaneous injection three times daily HumaLOG Jose KwikPen 100 units/mL injectable PEN Dose : 8 unit(s) =, Subcutaneous, TID, # 15 mL, 0 Refill(s), PEN, Pharmacy: [facility] #[id number], 170.2, cm, 03/22/23 16:11:00 EST, Height, kg, 03/22/23 16:24:00 EST, Dosing Weight Start Date: 03/24/23 Stop Date: 04/23/23 Status: Ordered Start: 09-08-2022 End: 09-08-2022 inject 5 [IU] by subcutaneous injection before mealtime insulin lispro (HUMALOG U-100 INSULIN) 100 unit/mL crtg Inject 5 Units subcutaneously before meals. 0 09/08/2022 09/08/2022 Discontinued Start: 09-08-2022 insulin lispro (HUMALOG KWIKPEN INSULIN) 100 unit/mL Inject 8 units with meals PLUS SS#1 (1 unit of insulin for every 50 over 150 blood sugar) 10 Each 3 09/08/2022 Active Start: 08-25-2022 HumaLOG KwikPe n 100 units/mL injectable PEN Dose : 5 unit(s) =, Subcutaneous, TIDAC, # 15 mL, 0 Refill(s), Hyperglycemia Start Date: 08/25/22 Status: Ordered Comment on above: Inject 8 units with meals PLUS SS#1 (1 unit of insulin for every 50 over 150 blood sugar) Inject 5 Units subcu taneously before meals. levoFLOXacin 500 mg oral tablet (2 sources) Quinolone Antimicrobial Start: 07-17-19 End: 05-28-19 take 500 mg by mouth once daily Levofloxacin Active 500 MG PO DAILY July 16, 2021 1:50pm metroNIDAZOLE 500 mg oral tablet (3 sources) Nitroimidazole Antimicrobial Start: 05-28-19 take 500 mg by mouth twice daily Metronidazole Active 500 MG PO TWICE A DAY May 28, 2022 12:00am Start: 04-24-2022 metroNIDAZOLE 500 mg oral tablet 0 Refill(s), 104.5 Start Date: 04/24/22 Status: Ordered miSOPROStol 0.2 mg oral tablet (5 sources) Prostaglandin E1 Analog Start: 04-24-2022 miSOPR OStol 200 mcg oral tablet 0 Refill(s) Start Date: 04/24/22 Status: Ordered Start: 09-10-2021 End: 11-10-2021 miSOPROStol (CYTOTEC) 200 mc g tablet Insert 2 tablets vaginally night prior to procedure and 2 tablets morning of procedure. Each dose should be in vagina for 6-8 hours. 4 tablet 0 09/10/2021 11/10/2021 Discontinued (Course of therapy completed) Comment on above: Insert 2 tablets vag inally night prior to procedure and 2 tablets morning of procedure. Each dose should be in vagina for 6-8 hours. phenazopyridine hydrochloride 100 mg oral tablet (5 sources) Start: 023 take 1 tablet by mouth three times daily at mealtime Phenazopyridine (Pyridium) 100 mg tablet Active 100 MG PO THREE TIMES A DAY May 28, 2022 12:00am administer with a full glass of water after each meal Start: 01-13-2021 End: 05-28-2022 take 1 tablet by mouth three times daily at mealtime Phenazopyridine (Pyridium) 100 mg tablet Active 100 MG PO THREE TIMES A DAY January 13, 2021 4:59pm administer with a full glass of water after each meal Start: 07-16-2019 End: 05-26-2020 take 1 tablet by mouth three times daily Phenazopyridine (Pyridium) 200 mg tablet Discontinued 200 MG PO THREE TIMES A DAY 6 0 July 16, 2019 11:23am May 26, 2020 1:07pm predniSONE 20 mg oral tablet (7 sources) Start: 04-24-2022 End: 04-25-2022 predniSONE 20 mg oral tablet See Instructions, 3 p.o. day 1 and 2, 2 p.o. day 3 and 4, 1 p.o. day 5 through 8, # 14 tab(s), 0 Refill(s), 04/25/22 12:48:00 EST, Arthropathy of hip joint Start Date: 04/24/22 Stop Date: 04/25/22 Status: Ordered Start: 04-24-2022 predniSONE 10 mg oral tablet 0 Refill(s) Start Date: 04/24/22 Status: Ordered Start: 10-26-2021 End: 05-12-2022 predniSONE (DELTASONE) 10 mg tablet Indications: Medial epicondylitis of left elbow 6 tabs po day 1 and 2, then 5 tabs day 3 and 4, 4 tabs day 5 and 6, 3 tabs day 7 and 8, 2 tabs day 9 and 10, 1 tab day 11 and 12. 42 tablet 0 10/26/2021 05/12/2022 Discontinued Comment on above: 6 tabs po day 1 and 2, then 5 tabs day 3 and 4, 4 tabs day 5 and 6, 3 tabs day 7 and 8, 2 tabs day 9 and 10, 1 tab day 11 and 12. Completed/Discontinued Medications Medication Drug Class(es) Dates Sig (Normalized) Sig (Original) [id number] 200 actuat albuterol 0.09 mg/actuat metered dose inhaler (7 sources) beta2-Adrenergic Agonist Start: 06-02-2021 End: 05-12-2022 take 2 puff(s) by inhalation every four hours as needed for wheezing albuterol HFA (PROVENTIL HFA, VENTOLIN HFA) 90 mcg/actuation inhaler Indications: COVID-19 , SOB (shortness of breath) Inhale 2 Puffs as instructed every 4 hours as needed for wheezing/shortness of breath. 1 Each 1 06/02/2021 05/12/2022 Discontinued Start: 12-06-2017 End: 12-12-2017 take 1 puff(s) by inhalation every six hours as needed Albuterol Sulfate Discontinued 1 PUFF INHALATION EVERY 6 HOURS NEEDED December 06, 2017 4:40am December 12, 2017 10:45am Comment on above: Inhale 2 Puffs as in structed every 4 hours as needed for wheezing/shortness of breath. amoxicillin 875 mg oral tablet (8 sources) Penicillin-class Antibacterial Start: 05-05-20 End: 05-10-20 take 1 tablet by mouth twice daily amoxicillin (AMOXIL) 875 mg tablet take 1 tablet by mouth twice a day for 5 days --TAKE WITH A PROBIOTIC 0 05/06/2022 Active Start: 03-08-2018 End: 03-18-2018 take 1000 mg by mouth twice daily Amoxicillin Discontinued 1000 MG PO TWICE A DAY 40 March 08, 2018 12:15pm March 18, 2018 12:11am Start: 07-08-2017 End: 07-14-2017 take 1000 mg by mouth twice daily Amoxicillin Discontinued 1000 MG PO TWICE A DAY 40 July 08, 2017 2:36pm July 14, 2017 4:12pm Comment on above: take 1 tablet by margaret twice a day for 5 days --TAKE WITH A PROBIOTIC amoxicillin 875 mg / clavulanate 125 mg oral tablet (2 sources) Penicillin-class Antibacterial Start: 05-26-19 End: 06-05-19 take 1 tablet by mouth every twelve hours Amoxicillin-Pot Clavulanate (Augmentin) 875-125 mg tablet Discontinued 1 TABLET PO Q12H 20 May 26, 2020 1:09pm June 05, 2020 1:03am azithromycin 250 mg oral tablet (2 sources) Macrolide Antimicrobial Start: 10-18-19 End: 03-15-20 Azithromycin Discontinued 0 PO .COMPLEX October 17, 2018 11:59am March 15, 2019 12:02pm take 500 mg today (day 1), then 250 mg for 4 days (days 2-5) PO benzonatate 200 mg oral capsule (2 sources) Non-narcotic Antitussive Start: 03-15-20 End: 07-16-19 take 200 mg by mouth three times daily Benzonatate Discontinued 200 MG PO THREE TIMES A DAY March 15, 2019 12:34pm July 16, 2019 11:16am Blood-Glucose Meter (ONETOUCH VERIO METER) (2 sources) Start: 09-09-19 Blood-Glucose Meter (ONETOUCH VERIO METER) Dispense one meter kit. E11.9 1 Each 0 09/08/2022 Active Comment on above: Dispense one meter k it. E11.9 Blood-Glucose Sensor (FREESTYLE WILLIAN 3 SENSOR) daniel (2 sources) Start: 09-09-19 Blood-Glucose Sensor (FREESTYLE WILLIAN 3 SENSOR) daniel Change sensor every 14 days. USE FOR CONTINUOUS GLUCOSE MONITORING. Multiple insulin injections E11.9 7 Each 3 09/08/2022 Active Comment on above: Change sensor every 14 days. USE FOR CONTINUOUS GLUCOSE MONITORING. Multiple insulin injections E11.9 brompheniramine maleate 0.4 mg/ml / dextromethorphan hydrobromide 2 mg/ml / pseudoephedrine hydrochloride 6 mg/ml oral solution (3 sources) alpha-Adrenergic Agonist, Uncompetitive Q-ostrwl-O-aspartate Receptor Antagonist, Sigma-1 Agonist Start: 06-02-19 End: 11-11-19 take 10 mL by mouth three times daily as needed Brompheniramine-Pse udoeph-DM (BROMFED DM) 2-30-10 mg/5 mL syrup Indications: COVID-19 Take 10 mL by mouth three times daily as needed. 240 mL 0 06/02/2021 11/10/2021 Discontinued (Course of therapy completed) Comment on above: Take 10 mL by mouth three times daily as needed. cholecalciferol 1.25 mg oral capsule (1 source) Vitamin D Start: 09-12-19 cholecalciferol, Vitamin D3, (VITAMIN D3) 1,250 mcg (50,000 unit) cap capsule Take 1 capsule once weekly with food (for 12 weeks) 12 capsule 0 09/11/2022 Active Comment on above: Take 1 capsule once weekly with food (for 12 weeks) 0.5 ml dulaglutide 1.5 mg/ml auto-injector (4 sources) GLP-1 Receptor Agonist Start: 03-22-20 Trulicity Pen 0.75 mg/0.5 mL subcutaneous solution Dose : 0.75 mg = 0.5 mL, Subcutaneous, qWeek, 0.5 mL/Pen Start Date: 03/22/23 Status: Ordered Start: 06-03-2021 End: 11-10-2021 inject 0.75 mg by subcutaneous injection every week dulaglutide (TRULICITY) 0.75 mg/0.5 mL pen injector Inject 0.75 mg subcutaneously one time a week. Inject dose once per week. Discard Pen After 2 mL 0 06/03/2021 11/10/2021 Discontinued (Side Effects) Comment on above: Inject 0.75 mg subcu taneously one time a week. Inject dose once per week. Discard Pen After fluconazole 150 mg oral tablet (2 sources) Azole Antifungal Start: End: Fluconazole Discontinued 150 MG PO Q3D July 16, 2019 11:26am May 26, 2020 1:07pm isopropyl alcohol 0.7 ml/ml medicated pad (2 sources) Start: alcohol swabs Uses 3 per day with insulin injections. 300 Each 3 09/08/2022 Active Comment on above: Uses 3 per day with insulin injections. 1 ml ketorolac tromethamine 30 mg/ml injection (1 source) Nonsteroidal Anti-inflammatory Drug, Cyclooxygenase Inhibitor Start: End: inject 15 mg by intramuscular injection once ketorolac 15 mg/mL injection syringe Discontinued 15 MG IM ONCE 1 December 12, 2017 10:25am December 12, 2017 10:48am L. acidophilus,casei,r hamnosus 50 billion cell cpDR (5 sources) Start: End: take 1 capsule by mouth once daily L. acidophilus,casei, rhamnosus 50 billion cell cpDR Indications: BV (bacterial vaginosis) Take 1 capsule by mouth once daily. 30 capsule 03/24/2021 05/13/2022 Discontinued Start: 03-24-2021 take 1 capsule by mo uth once daily L. acidophilus,casei,rhamnosus 50 billio n cell cpDR Indications: BV (bacterial vaginosis) Take 1 capsule by mouth once daily. 30 capsule 03/24/2021 Active Comment on above: Take 1 capsule by mo uth once daily. L. acidophilus-L. rhamnosus 15 billion cell cap (2 sources) Start: take 1 capsule by mouth once daily L. acidophilus-L. rhamnosus 15 billion cell cap Indications: BV (bacterial vaginosis) , Vaginal yeast infection Take 1 capsule by mouth once daily. FLORAJEN WOMEN. If on antibiotic, take at least 1-2 hours before or after antibiotic. KEEP REFRIGERATED 30 capsule 11 05/13/2022 Active Comment on above: Take 1 capsule by mo ut once daily. FLORAJEN WOMEN. If on antibiotic, take at least 1-2 hours before or after antibiotic. KEEP REFRIGERATED miconazole nitrate 20 mg/ml vaginal cream (2 sources) Azole Antifungal Start: 022 miconazole (MONISTAT 7) 2 % vaginal cream Indications: Vaginal yeast infection Use 1 Applicator vaginally as directed. 1 applicator vaginally at bedtime every other night x 2 weeks. 45 g 1 05/13/2022 Active Comment on above: Use 1 Applicator vag inally as directed. 1 applicator vaginally at bedtime every other night x 2 weeks. mupirocin 0.02 mg/mg topical ointment (3 sources) RNA Synthetase Inhibitor Antibacterial Start: mupirocin (BACTROBAN) 2 % ointment Indications: Folliculitis Apply to affected area three times daily. 30 g 1 05/12/2022 Active Comment on above: Apply to affected ar ea three times daily. nitrofurantoin, macrocrystals 25 mg / nitrofurantoin, monohydrate 75 mg oral capsule (5 sources) Nitrofuran Antibacterial Start: 023 End: 023 take 1 capsule by mouth every twelve hours at mealtime Nitrofurantoin Monohyd/M-Cryst Discontinued 1 CAP PO Q12H 14 May 28, 2022 12:00am June 04, 2022 12:04am administer with a meal/food; swallow whole; do not open, crush, dissolve , or chew Start: 01-13-2021 End: 01-20-2021 take 1 capsule by mouth every twelve hours at mealtime Nitrofurantoin Monohyd/M-Cryst Discontinued 1 CAP PO Q12H 14 January 13, 2021 4:58pm January 20, 2021 12:01am administer with a meal/food; swallow whole; do not open, crush, dissolve , or chew Start: 07-16-2019 End: 07-23-2019 take 1 capsule by mouth every twelve hours at mealtime Nitrofurantoin Monohyd/M-Cryst (Macrobid) 100 mg capsule Discontinued 100 MG PO Q12H 14 7 July 16, 2019 11:27am July 23, 2019 12:09am must administer with a meal/food ondansetron 4 mg oral tablet (4 sources) Serotonin-3 Receptor Antagonist Start: 09-08-2022 take 1 tablet by mouth every eight hours as needed ondansetron (ZOFRAN) 4 mg tablet Take 1 tablet by mouth every 8 hours as needed for nausea/vomiting. 20 tablet 1 09/08/2022 Active Start: 03-12-2021 End: 05-28-2022 take 1 tablet by mouth every six hours Ondansetron Hcl (Zofran) 4 mg tablet Active 4 MG PO EVERY 6 HOURS March 12, 2021 7:38am Comment on above: Take 1 tablet by margaret th every 8 hours as needed for nausea/vomiting. oseltamivir 75 mg oral capsule (2 sources) Neuraminidase Inhibitor Start: 06-28-19 End: 07-08-19 18 take 1 capsule by mouth once daily Oseltamivir (Tamiflu) 75 mg capsule Discontinued 75 MG PO daily 10 June 28, 2017 7:06pm July 08, 2017 1:10am QUEtiapine 25 mg oral tablet (2 sources) Atypical Antipsychotic Start: 08-21-19 End: 07-16-19 take 25 mg by mouth at bedtime Quetiapine Discontinued 25 MG PO AT BEDTIME August 20, 2018 11:40pm July 16, 2019 11:26am 1 mg dose 1.5 ml semaglutide 1.34 mg/ml pen injector (4 sources) Start: 09-09-19 semaglutide (OZEMPIC) 1 mg/0.75 ml subcutaneous pen injector Inject 0.25 mg for 4 weeks then increase to 0.5 mg and stay at that dose 0 09/08/2022 Active Start: 08-25-2022 Ozempic 2 mg/1 .5 mL (0.25 mg or 0.5 mg dose) subcutaneous solution 0.25 mg, Subcutaneous, qWeek, rotate injection sites, # 1 EA, 0 Refill(s) Start Date: 08/25/22 Status: Ordered Comment on above: Inject 0.25 mg for 4 weeks then increase to 0.5 mg and stay at that dose sulfacetamide sodium 100 mg/ml ophthalmic solution (2 sources) Sulfonamide Antibacterial Start: 017 End: 018 take 1 drop(s) into the eye(s) every three hours Sulfacetamide Sodium (Bleph-10) 10 % drops Discontinued 1 DRP OPHTHALMIC Q3H 5 April 26, 2017 3:08pm July 08, 2017 2:38pm 1 drop to each eye every 3 hours sulfamethoxazole 800 mg / trimethoprim 160 mg oral tablet (1 source) Dihydrofolate Reductase Inhibitor Antibacterial, Sulfonamide Antimicrobial Start: 023 End: 023 take 1 tablet by mouth every twelve hours Sulfamethoxazole-Tri methoprim (Bactrim Ds) 800-160 mg tablet Discontinued 1 TABLET PO Q12H 14 7 May 31, 2022 12:00am June 07, 2022 12:03am Problems Active Problems Problem Classification Problem Date Documented Date Episodic/Chronic Acute bronchitis (3 sources) Acute bronchitis; Translations: [Acute bronchitis, unspecified] Episodic Anxiety disorders (6 sources) Anxiety 07-06-2016 Chronic Chronic obstructive pulmonary disease and bronchiectasis (2 sources) Bronchitis; Translations: [Bronchitis, not specified as acute or chronic] 10-16-2018 Episodic Diabetes mellitus without complication (16 sources) Diabetes mellitus; Translations: [Type 2 diabetes mellitus without complications] Onset: 06-18-2014 08-27-2018 Chronic Comment on above: diet controlled Diabetes mellitus without complication (4 sources) Hyperglycemia; Translations: [Hyperglycemia, unspecified] Onset: 08-25-2022 05-28-2022 Episodic Fluid and electrolyte disorders (1 source) Dehydration; Translations: [Dehydration] Onset: 03-01-2023 Episodic Genitourinary symptoms and ill-defined conditions (3 sources) Dysuria; Translations: [Dysuria] 07-14-2017 Episodic Immunizations and screening for infectious disease (8 sources) Patient encounter status; Translations: [Encounter for screening for COVID-19] Episodic Inflammation; infection of eye (except that caused by tuberculosis or sexually transmitteddisease) (2 sources) Acute infectious conjunctivitis; Translations: [Unspecified acute conjunctivitis, unspecified eye] 04-26-2017 Episodic Malaise and fatigue (2 sources) Other fatigue; Translations: [Asthenia] Onset: 06-02-2022 Episodic Menstrual disorders (2 sources) Menorrhagia; Translations: [Excessive and frequent menstruation with regular cycle] Chronic Other connective tissue disease (1 source) Medial epicondylitis of left humerus; Translations: [Medial epicondylitis, left elbow] Episodic Other female genital disorders (2 sources) Vaginal discharge; Translations: [Other specified noninflammatory disorders of vagina] Episodic Other female genital disorders (1 source) Vaginal odor; Translations: [Other specified noninflammatory disorders of vagina] Episodic Other lower respiratory disease (1 source) Dyspnea; Translations: [Shortness of breath] 06-02-2021 Episodic Other lower respiratory disease (1 source) Shortness of breath; Translations: [Shortness of breath] Onset: 05-26-2024 Episodic Other nervous system disorders (2 sources) Loss of taste; Translations: [Parageusia] 01-21-2021 Episodic Other nervous system disorders (2 sources) Loss of sense of smell; Translations: [Anosmia] 01-21-2021 Episodic Other non-traumatic joint disorders (1 source) Disorder of joint region; Translations: [Joint disorder, unspecified] Onset: 04-24-2022 Episodic Other non-traumatic joint disorders (1 source) Pain in unspecified joint; Translations: [Pain in unspecified joint] Onset: 06-02-2022 Episodic Other nutritional; endocrine; and metabolic disorders (8 sources) Body mass index 30+ - obesity; Translations: [Body mass index (BMI) 37.0-37.9, adult] Onset: 02-08-2014 10-17-2014 Chronic Other nutritional; endocrine; and metabolic disorders (1 source) Obese class II; Translations: [Obesity, unspecified] Chronic Other nutritional; endocrine; and metabolic disorders (1 source) Severe obesity; Translations: [Morbid (severe) obesity due to excess calories] Chronic Other screening for suspected conditions (not mental disorders or infectious disease) (1 source) Encounter for screening for lipoid disorders; Translations: [Encounter for screening for lipoid disorders] Onset: 06-02-2022 Episodic Other skin disorders (2 sources) Sebaceous cyst of skin; Translations: [Sebaceous cyst] 03-11-2021 Episodic Other skin disorders (1 source) Folliculitis; Translations: [Follicular disorder, unspecified] Episodic Other upper respiratory infections (6 sources) Acute upper respiratory infection; Translations: [Acute upper respiratory infection, unspecified] 04-26-2017 Episodic Prolapse of female genital organs (8 sources) Midline cystocele; Translations: [Cystocele, midline] Onset: 01-16-2021 01-16-2021 Chronic Pulmonary heart disease (1 source) H/O: pulmonary embolus; Translations: [Personal history of pulmonary embolism] 06-02-2021 Episodic Residual codes; unclassified (1 source) Family history of rheumatism; Translations: [Family history of other diseases of the musculoskeletal system and connective tissue] Episodic Spondylosis; intervertebral disc disorders; other back problems (2 sources) Backache; Translations: [Dorsalgia, unspecified] 07-14-2017 Episodic Sprains and strains (2 sources) Strain of muscle and/or tendon of lower leg; Translations: [Strain of unspecified muscle and tendon at ankle and foot level, right foot, initial encounter] 12-30-2020 Episodic Substance-related disorders (17 sources) Tobacco user; Translations: [Nicotine dependence, unspecified, uncomplicated] Onset: 07-21-2005 05-11-2021 Chronic Superficial injury; contusion (4 sources) Contusion of rib; Translations: [Contusion of left front wall of thorax, initial encounter] 10-10-2020 Episodic Unclassified (1 source) NO SHOW Urinary tract infections (4 sources) Urinary tract infectious disease; Translations: [Urinary tract infection, site not specified] Onset: 03-22-2023 01-13-2021 Episodic Viral infection (1 source) Disease caused by 2019-nCoV; Translations: [COVID-19] 06-02-2021 Episodic Past or Other Problems Problem Classification Problem Date Documented Da te Episodic/Chronic Crushing injury or internal injury (1 source) Rupture of uterus; Translations: [Other injury of uterus, initial encounter] Onset: 06-18-2014 Resolved: 03-24-2021 05-11-2021 Episodic Diabetes mellitus with complications (5 sources) Type 2 diabetes mellitus; Translations: [Type 2 diabetes mellitus with other specified complication] Onset: 02-08-2014 Resolved: 08-15-2014 Chronic Diabetes or abnormal glucose tolerance complicating ; childbirth; or the puerperium (1 source) Gestational diabetes mellitus; Translations: [Insulin dependent gestational diabetes mellitus, antepartum] Onset: 10-22-2014 Resolved: 03-24-2021 03-24-2021 Episodic Disorders of teeth and jaw (1 source) Infection of tooth; Translations: [Periapical abscess without sinus] Onset: 2014 Resolved: 03-24-2021 03-24-2021 Episodic Headache; including migraine (5 sources) Migraine; Translations: [Migraine, unspecified, not intractable, without status migrainosus] Onset: 07-19-2007 Resolved: 10-17-2014 12-12-2017 Chronic Mood disorders (2 sources) Bipolar disorder; Translations: [Bipolar disorder, unspecified] Onset: 03-22-2023 Resolved: 10-17-2014 Chronic Open wounds of head; neck; and trunk (1 source) Open wound of trunk with complication; Translations: [Open wound of other and unspecified parts of trunk, complicated] Onset: 07-23-2005 Resolved: 09-02-2005 11-24-2023 Episodic Other complications of (1 source) Hyperemesis gravidarum; Translations: [Mild hyperemesis gravidarum] Onset: 06-18-2014 Resolved: 10-17-2014 05-11-2021 Episodic Other complications of (1 source) Maternal tobacco use; Translations: [Smoking (tobacco) complicating , unspecified trimester] Onset: 10-22-2014 Resolved: 03-24-2021 03-24-2021 Episodic Other nutritional; endocrine; and metabolic disorders (1 source) Obesity; Translations: [Obesity, unspecified] Resolved: 02-08-2014 02-08-2014 Chronic Unclassified (1 source) SUMMARY Onset: 06-18-2014 Resolved: 10-17-2014 10-17-2014 Results Test Name Value Interpretation Reference Range Facil ity Chest PA and Lateralon 05-03 Chest PA and Lateral [facility] Imaging Services [address] [place] [id number] Chest PA and Lateral MR#: [id number] Acct: [id number] Name: MONIQUE ACEVEDO Rep #: [id number] : 1985 F 38 From: Denis Pennington MD PCP: SONIA Lopez Status: REG ER Study: Chest PA and Lateral Date of Exam: 05/03/24 Exam# [id number] Ordering Dr: John Echevarria DO -[id number] EXAM: XR CHEST, 2 VIEWS CLINICAL INDICATION: cough TECHNIQUE: Frontal and lateral views of the chest. COMPARISON: Two-view chest 07/16/2021 FINDINGS: LUNGS AND PLEURAL SPACES: Unremarkable. No consolidation or edema. No pneumothorax. No effusion. HEART: Unremarkable. Cardiac silhouette not enlarged. MEDIASTINUM: Central airways and mediastinal contour are unremarkable. BONES/JOINTS: Unremarkable. No acute fracture. SOFT TISSUES: Unremarkable. RAD/Chest PA and Lateral IMPRESSION: No radiographic evidence of acute cardiopulmonary disease. Electronically Signed: Denis Pennington MD at 0:27 EST Reading Location ID and State: [employer] / [place] Tel , Service support , CC: ENGINE HOSTLER-C Gideon Alford; Dr. John Echevarria DO Thread Inspector: Signed Normal [facility] Emergency Department Summary on 05-03-2024 Emergency Department Summary [facility] Medical Records Department [address] [place] [address] Emergency Department Summary 05/03/24 MR#: [id number] Acct: [id number] Name: MONIQUE ACEVEDO Rep #: [id number] : [id number] From: John Echevarria DO PCP: SONIA Lopez Status:REG ER Location: ED HPI History of Present Illness Chief Complaint: Shortness of Breath [facility] Medical History (Updated 05/04/24 @ 00:[address] John Echevarria DO) Contact with and (suspected) exposure to other viral communicable diseases Acute pharyngitis, unspecified Acute bronchitis, unspecified Sebaceous cyst of left axilla Encounter for screening for COVID-19 Home Medications ???Medication ???Instructions ???Recorded ???Last Taken ???Type ibuprofen 600 mg tablet 600 mg PO Q6H PRN PRN Pain Score 05/28/21 Unknown Rx 1-02/22 #20 tabs albuterol sulfate 90 mcg/actuation 2 inh inhalation Q6H PRN shortness 05/04/24 Unknown Rx breath activated powder inhaler of breath or wheezing #1 ea prednisone 50 mg tablet 50 mg PO DAILY 5 days #5 tabs 05/04/24 Unknown Rx Allergy/AdvReac Type Severity Reaction Status Date / Time No Known Allergies Allergy Verified 05/03/24 23:08 Surgical History History of Social History Smoking Status: Current every day smoker tobacco type: cigarettes alcohol intake: never EXAM Physical Exam Const Vital Signs: 05/03/24 23:08 05/03/24 23:26 05/04/24 00:02 Temperature 98 F Temperature Source Oral Pulse Rate 109 H 101 H Respiratory Rate 24 H 26 H Respiratory Effort Short of Breath Respiratory Depth Respiratory Pattern Tachypnea Normal Blood Pressure 147/94 H Blood Pressure Mean 111 Pulse Ox 95 Oxygen Delivery Method Room Air 05/04/24 00:03 05/04/24 00:33 Temperature Temperature Source Pulse Rate 91 Respiratory Rate 20 H Respiratory Effort Normal Non-Labored Respiratory Depth Normal Respiratory Pattern Normal Blood Pressure Blood Pressure Mean Pulse Ox 98 Oxygen Delivery Method Room Air MDM MDM MDM Narrative Medical decision making narrative: HISTORY OF PRESENT ILLNESS: 38-year-old female notes she has been sick for several weeks. She notes cough and occasional shortness of breath. Denies any shortness of breath here today. Denies chest pain. Notes she works as a [employer] and has been exposed to COVID and flu. She has not been tested as of yet. She is requesting a COVID and flu test. The patient denies recent surgery in the last 4 weeks or immobilization in the last 3 days, denies previous diagnosis of DVT or PE, hemoptysis, unilateral leg swelling or malignancy with treatment the last 6 months or palliative. No estrogen use noted. REVIEW OF SYSTEMS: Pertinent positives: Cough, shortness of breath Pertinent negatives: chest pain, fever, leg swelling PHYSICAL EXAM: Nursing triage notes reviewed, Vital signs reviewed Constitutional: please see mdm HENT: MMM Eyes: Pupils equal round and reactive to light, Extraocular muscles intact Neck: No stridor, no JVD, full neck ROM Lungs: Clear to auscultation, coarse breath sounds, no wheezing or rales. No increased work of breathing, no conversational dyspnea, no accessory muscle use, no nasal flaring. No respiratory distress noted Heart: Regular rate and rhythm, No murmurs, No rubs and No gallops, 2+ distal pulses (radial, femoral, posterior tibial) in all extremities Abdomen: Soft, there is no tenderness, rigidity, rebound or guarding, no obvious peritoneal signs, no palpable pulsatile abdominal masses, no auscultated abdominal bruit : No CVAT Extremities: No edema Neuro: No new focal neurological deficits, cranial nerves II through XII intact, 5/5 strength in all present extremities. Intact sensation to light touch in all present extremities, 2+ reflexes bilateral patella tendons. Skin: No rash or lesions noted MEDICAL DECISION MAKING: Chief Complaint: Cough, shortness of breath External records reviewed: Reviewed prior allergies, problem list Factors affecting care: none Social determinants of health: none History obtained from others: none Consults: none [facility] Narrative: Patient was initially hemodynamically stable, tachycardic to 109, tachypneic to 24, she is afebrile and saturating well on room air. I considered the following differential diagnosis: COVID, flu, RSV, bacterial pneumonia Cannot test specifically for COVID RSV and flu as patient is having symptoms for weeks without benefit from knowing specific virus as there is no specific treatment. I obtained an x-ray to rule out bacterial pneumonia. Per patient's request I obtained a COVID flu (more content not included)... [facility] .Auto Diffon 03-24-2023 Basophil, Absolute 0.0 10 3/mcL Normal 0.0-0.2 [facility] ([place]) Comment on above: Performed By: #### C HANS BUTLER, AMRIT, ADIFF, CMP, GFR #### [address] [address] Basophils/100 WBC (Bld) 0.2 % Normal 0.0-2.5 A [facility] ([place]) Comment on above: Performed By: #### C HANS BUTLER, ANEU, ADIFF, CMP, GFR #### [address] [address] Eosinophil, Absolute 0.1 10 3/mcL Normal 0.0-0.4 [facility] ([place]) Comment on above: Performed By: #### C HANS BUTLER, ANEU, ADIFF, CMP, GFR #### [address] [address] Eosinophils/100 WBC (Bld) 1.5 % Normal 0.0-7.0 [facility] ([place]) Comment on above: Performed By: #### C HANS BUTLER, ANEU, ADIFF, CMP, GFR #### [address] [address] Lymphocyte, Absolute 2.1 10 3/mcL Normal 0.8-3.9 [facility] ([place]) Comment on above: Performed By: #### HANS SCHWARTZ, ANEU, ADIFF, CMP, GFR #### [address] [address] Lymphocytes/100 WBC (Bld) 32.4 % Normal 10.0-50.0 [facility] ([place]) Comment on above: Performed By: #### C HANS BUTLER, ANEU, ADIFF, CMP, GFR #### [address] [address] Monocyte, Absolute 0.6 10 3/mcL Normal 0.2-1.0 [facility] ([place]) Comment on above: Performed By: #### HANS SCHWARTZ, ANEU, ADIFF, CMP, GFR #### [address] [address] Monocytes/100 WBC (Bld) 8.7 % Normal 1.7-13.0 [facility] ([place]) Comment on above: Performed By: #### HANS SCHWARTZ, ANEU, ADIFF, CMP, GFR #### [address] [address] Neutrophils/100 WBC (Bld) 57.2 % Normal 37.0-80.0 [facility] ([place]) Comment on above: Performed By: #### HANS SCHWARTZ, ANEU, ADIFF, CMP, GFR #### [address] [address] .GFRon 03-24-2023 GFR Non- 78 ml/min/1.73sqm Normal [facility] ([place]) Comment on above: Result Comment: GFR Population mean for , Non- Americans Ages 20-29 = 116 mL/min/1.73 sq.m. Ages 30-39 = 107 mL/min/1.73 sq.m. Ages 40-49 = 99 mL/min/1.73 sq.m. Ages 50-59 = 93 mL/min/1.73 sq.m. Ages 60-69 = 85 mL/min/1.73 sq.m. Ages 70+ = 75 mL/min/1.73 sq.m. Chronic Kidney Disease: Less than 60 mL/min/1.73 square meters End Stage Renal Disease: Less than 15 mL/min/1.73 square meters Performed By: #### C HANS BUTLER, AMRIT, JUAQUIN, CMP, GFR #### [address] [address] GFR 94 ml/min/1.73sqm Normal [facility] ([place]) Comment on above: Result Comment: GFR Population mean for , Non- Americans Ages 20-29 = 116 mL/min/1.73 sq.m. Ages 30-39 = 107 mL/min/1.73 sq.m. Ages 40-49 = 99 mL/min/1.73 sq.m. Ages 50-59 = 93 mL/min/1.73 sq.m. Ages 60-69 = 85 mL/min/1.73 sq.m. Ages 70+ = 75 mL/min/1.73 sq.m. Chronic Kidney Disease: Less than 60 mL/min/1.73 square meters End Stage Renal Disease: Less than 15 mL/min/1.73 square meters Performed By: #### C HANS BUTLER, AMRIT, ADABIEL, CMP, GFR #### [address] [address] .NEUABSon 03-24-2023 Neutrophil, Absolute 3.8 10 3/mcL Normal 2.9-6.2 [facility] ([place]) Comment on above: Performed By: #### HANS SCHWARTZ, ANEU, ADIFF, CMP, GFR #### [address] [address] A1Con 03-24-2023 HbA1c (Bld) [Mass fraction] 10.4 % High 4.3-6.4 [facility] ([place] Comment on above: Performed By: #### HANS SCHWARTZ, ANEU, ADIFF, CMP, GFR #### [address] [address] BMPon 03-24-2023 BUN/Creatinine Ratio 7 ratio Normal 7-27 [facility] ([place]) Comment on above: Performed By: #### HANS SCHWARTZ, AMRIT, ADIFF, CMP, GFR #### [address] [address] Calcium [Mass/Vol] 8.2 mg/dL Low 8.4-10.2 [facility] ([place]) Comment on above: Performed By: #### HANS SCHWARTZ, AMRIT, ADIFF, CMP, GFR #### [address] [address] Chloride [Moles/Vol] 101 mmol/L Normal 98-107 [facility] ([place]) Comment on above: Performed By: #### HANS SCHWARTZ, AMRIT, ADIFF, CMP, GFR #### [address] [address] CO2 [Moles/Vol] 29 mmol/L Normal 22-29 [facility] ([place]) Comment on above: Performed By: #### HANS SCHWARTZ, AMRIT, ADIFF, CMP, GFR #### [address] [address] Creatinine [Mass/Vol] 0.83 mg/dL Normal 0.55-1.02 [facility] ([place]) Comment on above: Performed By: #### HANS SCHWARTZ, ANEU, ADIFF, CMP, GFR #### [address] [address] Electrolyte Balance 9.0 mEq/L Normal 4.0-15.0 [facility] ([place]) Comment on above: Performed By: #### HANS SCHWARTZ, ANEU, ADIFF, CMP, GFR #### [address] [address] Glucose [Mass/Vol] 258 mg/dL High 70-105 [facility] ([place]) Comment on above: Performed By: #### HANS SCHWARTZ, AMRIT, ADIFF, CMP, GFR #### [address] [address] Potassium [Moles/Vol] 4.0 mmol/L Normal 3.5-5.1 [facility] ([place]) Comment on above: Performed By: #### HANS SCHWARTZ, AMRIT, ADIFF, CMP, GFR #### [address] [address] Sodium [Moles/Vol] 139 mmol/L Normal 136-145 [facility] ([place]) Comment on above: Performed By: #### HANS SCHWARTZ, AMRIT, ADIFF, CMP, GFR #### [address] [address] Urea nitrogen [Mass/Vol] 6 mg/dL Low 7-18 [facility] ([place]) Comment on above: Performed By: #### HANS SCHWARTZ, AMRIT, ADIFF, CMP, GFR #### [address] [address] CBCon 03-24-2023 Erythrocyte distribution width (RBC) [Ratio] 13.7 % Normal 11.5-14.5 [facility] ([place] Comment on above: Performed By: #### HANS SCHWARTZ, AMRIT, ADIFF, CMP, GFR #### [place] [id number] Hematocrit (Bld) [Volume fraction] 37.9 % Normal 37.0-47.0 [facility] ([place] Comment on above: Performed By: #### HANS SCHWARTZ, AMRIT, ADIFF, CMP, GFR #### [place] [phone] Hgb 12.6 G/dL Normal 12.0-16.0 [facility] ([place] Comment on above: Performed By: #### C HANS BUTLER, ANEU, ADIFF, CMP, GFR #### [address] [address] MCH (RBC) [Entitic mass] 29.7 pg Normal 27.0-31.2 [facility] ([place] Comment on above: Performed By: #### C HANS BUTLER, ANEU, ADIFF, CMP, GFR #### [place] [address] MCHC 33.3 G/dL Normal 33.0-37.0 [facility] ([place] Comment on above: Performed By: #### HANS SCHWARTZ, ANEU, ADIFF, CMP, GFR #### [place] [phone] MCV (RBC) [Entitic vol] 89.2 fL Normal 80.0-94.0 A [facility] ([place] Comment on above: Performed By: #### HANS SCHWARTZ, ANEU, ADIFF, CMP, GFR #### [place] [phone] Platelet 202 10 3/mcL Normal 130-400 [facility] ([place] Comment on above: Performed By: #### C HANS BUTLER, ANEU, ADIFF, CMP, GFR #### [place] [phone] Platelet mean volume (Bld) [Entitic vol] 8.9 fL Normal 7.4-10.4 [facility] ([place] Comment on above: Performed By: #### HANS SCHWARTZ, ANEU, ADIFF, CMP, GFR #### [place] [phone] RBC 4.25 10 6/mcL Normal 4.20-5.40 [facility] ([place] Comment on above: Performed By: #### HANS SCHWARTZ, ANEU, ADIFF, CMP, GFR #### [address] [address] WBC 6.6 10 3/mcL Normal 4.6-10.8 [facility] ([place] Comment on above: Performed By: #### C CARRIE, HANS, ANEU, JUAQUIN, CMP, GFR #### [facility] [address] [place], [place] [address] LABORATORYOrdered By: Josey Medina on 03-24-2023 Blood Glucose Testing Reason Routine (03/24/23 12:16 PM) [facility] Work Phone: Glucose [Mass/Vol] 250 mg/dL [facility] Work Phone: Blood Glucose Testing Reason Routine (03/24/23 10:11 AM) [facility] Work Phone: Glucose [Mass/Vol] 270 mg/dL Invalid Interpretation Code 70 - 110 mg/dL [facility] Work Phone: Blood Glucose Testing Reason Routine (03/24/23 8:38 AM) [facility] Work Phone: Glucose [Mass/Vol] 298 mg/dL [facility] Work Phone: LABORATORYOrdered By: Tia Ferguson on 03-24-2023 Glucose [Mass/Vol] 250 mg/dL Invalid Interpretation Code 70 - 110 mg/dL [facility] Work Phone: Glucose [Mass/Vol] 298 mg/dL Invalid Interpretation Code 70 - 110 mg/dL [facility] Work Phone: LABORATORYOrdered By: SYSTEM SYSTEM on 03-24-2023 Basophil, Absolute 0.0 103/mcL Invalid Interpretation Code 0.0 - 0.2 10^3/mcL AO Workflow SS Basophils/100 WBC (Bld) 0.2 % Invalid Interpretation Code 0.0 - 2.5 % AO Workflow SS Calcium [Mass/Vol] 8.2 mg/dL Invalid Interpretation Code 8.4 - 10.2 mg/dL AO ADM SS Chloride [Moles/Vol] 101 mmol/L Invalid Interpretation Code 98 - 107 mmol/L AO ADM SS CO2 [Moles/Vol] 29 mmol/L Invalid Interpretation Code 22 - 29 mmol/L AO ADM SS Creatinine [Mass/Vol] 0.83 mg/dL Invalid Interpretation Code 0.55 - 1.02 mg/dL AO ADM SS Electrolyte Balance 9.0 mEq/L Invalid Interpretation Code 4.0 - 15.0 mEq/L AO ADM SS Eosinophil, Absolute 0.1 103/mcL Invalid Interpretation Code 0.0 - 0.4 10^3/mcL AO Workflow SS Eosinophils/100 WBC (Bld) 1.5 % Invalid Interpretation Code 0.0 - 7.0 % AO Workflow SS Erythrocyte distribution width (RBC) [Ratio] 13.7 % Invalid Interpretation Code 11.5 - 14.5 % AO Workflow SS GFR/1.73 sq M.predicted among blacks MDRD (S/P/Bld) [Vol rate/Area] 94 ml/min/1.73sqm Invalid Interpretation Code AO Chemistry S Comment on above: Interpretive Data: GFR Population mean for , Non- Americans Ages 20-29 = 116 mL/min/1.73 sq.m. Ages 30-39 = 107 mL/min/1.73 sq.m. Ages 40-49 = 99 mL/min/1.73 sq.m. Ages 50-59 = 93 mL/min/1.73 sq.m. Ages 60-69 = 85 mL/min/1.73 sq.m. Ages 70+ = 75 mL/min/1.73 sq.m. Chronic Kidney Disease: Less than 60 mL/min/1.73 square meters End Stage Renal Disease: Less than 15 mL/min/1.73 square meters GFR/1.73 sq M.predicted among non-blacks MDRD (S/P/Bld) [Vol rate/Area] 78 ml/min/1.73sqm Invalid Interpretation Code AO Chemistry S Comment on above: Interpretive Data: GFR Population mean for , Non- Americans Ages 20-29 = 116 mL/min/1.73 sq.m. Ages 30-39 = 107 mL/min/1.73 sq.m. Ages 40-49 = 99 mL/min/1.73 sq.m. Ages 50-59 = 93 mL/min/1.73 sq.m. Ages 60-69 = 85 mL/min/1.73 sq.m. Ages 70+ = 75 mL/min/1.73 sq.m. Chronic Kidney Disease: Less than 60 mL/min/1.73 square meters End Stage Renal Disease: Less than 15 mL/min/1.73 square meters Glucose [Mass/Vol] 258 mg/dL Invalid Interpretation Code 70 - 105 mg/dL AO ADM SS HbA1c (Bld) [Mass fraction] 10.4 % Invalid Interpretation Code 4.3 - 6.4 % AO ADM SS Hematocrit (Bld) [Volume fraction] 37.9 % Invalid Interpretation Code 37.0 - 47.0 % AO Workflow SS Hemoglobin (Bld) [Mass/Vol] 12.6 G/dL Invalid Interpretation Code 12.0 - 16.0 G/dL AO Workflow SS Lymphocyte, Absolute 2.1 103/mcL Invalid Interpretation Code 0.8 - 3.9 10^3/mcL AO Workflow SS Lymphocytes/100 WBC (Bld) 32.4 % Invalid Interpretation Code 10.0 - 50.0 % AO Workflow SS Magnesium [Mass/Vol] 1.7 mg/dL Invalid Interpretation Code 1.8 - 2.4 mg/dL AO ADM SS MCH (RBC) [Entitic mass] 29.7 pg Invalid Interpretation Code 27.0 - 31.2 pg AO Workflow SS MCHC 33.3 G/dL Invalid Interpretation Code 33.0 - 37.0 G/dL AO Workflow SS MCV (RBC) [Entitic vol] 89.2 fL Invalid Interpretation Code 80.0 - 94.0 fL AO Workflow SS Monocyte, Absolute 0.6 103/mcL Invalid Interpretation Code 0.2 - 1.0 10^3/mcL AO Workflow SS Monocytes/100 WBC (Bld) 8.7 % Invalid Interpretation Code 1.7 - 13.0 % AO Workflow SS Neutrophil, Absolute 3.8 103/mcL Invalid Interpretation Code 2.9 - 6.2 10^3/mcL AO Workflow SS Neutrophils/100 WBC (Bld) 57.2 % Invalid Interpretation Code 37.0 - 80.0 % AO Workflow SS Platelet mean volume (Bld) [Entitic vol] 8.9 fL Invalid Interpretation Code 7.4 - 10.4 fL AO Workflow SS Platelets (Bld) [#/Vol] 202 103/mcL Invalid Interpretation Code 130 - 400 10^3/mcL AO Workflow SS Potassium [Moles/Vol] 4.0 mmol/L Invalid Interpretation Code 3.5 - 5.1 mmol/L AO ADM SS RBC (Bld) [#/Vol] 4.25 106/mcL Invalid Interpretation Code 4.20 - 5.40 10^6/mcL AO Workflow SS Sodium [Moles/Vol] 139 mmol/L Invalid Interpretation Code 136 - 145 mmol/L AO ADM SS Urea nitrogen [Mass/Vol] 6 mg/dL Invalid Interpretation Code 7 - 18 mg/dL AO ADM SS Urea nitrogen/Creatinine [Mass ratio] 7 ratio Invalid Interpretation Code 7 - 27 ratio AO ADM SS WBC (Bld) [#/Vol] 6.6 103/mcL Invalid Interpretation Code 4.6 - 10.8 10^3/mcL AO Workflow SS MGon 03-24-2023 Magnesium [Mass/Vol] 1.7 mg/dL Low 1.8-2.4 [facility] ([place]) Comment on above: Performed By: #### C BC, HANS, ANEU, ADIFF, CMP, GFR #### [place] [address] [address] .Auto Diffon 03-23-2023 Basophil, Absolute 0.0 10 3/mcL Normal 0.0-0.2 [facility] ([place]) Comment on above: Performed By: #### A DIFF, MG, GFR, CBC, BMP, ANEU ####[place] [address] [address] Basophils/100 WBC (Bld) 0.3 % Normal 0.0-2.5 A [facility] ([place]) Comment on above: Performed By: #### A DIFF, MG, GFR, CBC, BMP, ANEU ####[place] [place] [address] Eosinophil, Absolute 0.1 10 3/mcL Normal 0.0-0.4 [facility] ([place]) Comment on above: Performed By: #### A DIFF, MG, GFR, CBC, BMP, ANEU ####[place] [address] [address] Eosinophils/100 WBC (Bld) 1.7 % Normal 0.0-7.0 [facility] ([place]) Comment on above: Performed By: #### A DIFF, MG, GFR, CBC, BMP, ANEU ####[address] [place], [place] [address] Lymphocyte, Absolute 2.6 10 3/mcL Normal 0.8-3.9 [facility] ([place]) Comment on above: Performed By: #### A DIFF, MG, GFR, CBC, BMP, ANEU ####[place] [address] [place], [place] [address] Lymphocytes/100 WBC (Bld) 30.5 % Normal 10.0-50.0 [facility] ([place] Comment on above: Performed By: #### A DIFF, MG, GFR, CBC, BMP, ANEU ####[place] [place], [place] [address] Monocyte, Absolute 0.6 10 3/mcL Normal 0.2-1.0 [facility] ([place]) Comment on above: Performed By: #### A DIFF, MG, GFR, CBC, BMP, ANEU ####[address] [place], [place] [address] Monocytes/100 WBC (Bld) 7.2 % Normal 1.7-13.0 [facility] ([place]) Comment on above: Performed By: #### A DIFF, MG, GFR, CBC, BMP, ANEU ####[address] [place], [place] [address] Neutrophils/100 WBC (Bld) 60.3 % Normal 37.0-80.0 [facility] ([place] Comment on above: Performed By: #### A DIFF, MG, GFR, CBC, BMP, ANEU ####[address] [place], [place] [address] .GFRon 03-23-2023 GFR 103 ml/min/1.73sqm Normal [facility] ([place] Comment on above: Result Comment: GFR Population mean for , Non- Americans Ages 20-29 = 116 mL/min/1.73 sq.m. Ages 30-39 = 107 mL/min/1.73 sq.m. Ages 40-49 = 99 mL/min/1.73 sq.m. Ages 50-59 = 93 mL/min/1.73 sq.m. Ages 60-69 = 85 mL/min/1.73 sq.m. Ages 70+ = 75 mL/min/1.73 sq.m. Chronic Kidney Disease: Less than 60 mL/min/1.73 square meters End Stage Renal Disease: Less than 15 mL/min/1.73 square meters Performed By: #### A DIFF, MG, GFR, CBC, BMP, ANEU ####[address] [place], [place] [address] GFR Non- 85 ml/min/1.73sqm Normal [facility] ([place] Comment on above: Result Comment: GFR Population mean for , Non- Americans Ages 20-29 = 116 mL/min/1.73 sq.m. Ages 30-39 = 107 mL/min/1.73 sq.m. Ages 40-49 = 99 mL/min/1.73 sq.m. Ages 50-59 = 93 mL/min/1.73 sq.m. Ages 60-69 = 85 mL/min/1.73 sq.m. Ages 70+ = 75 mL/min/1.73 sq.m. Chronic Kidney Disease: Less than 60 mL/min/1.73 square meters End Stage Renal Disease: Less than 15 mL/min/1.73 square meters Performed By: #### A DIFF, MG, GFR, CBC, BMP, ANEU ####[address] [place], [place] [address] .NEUABSon 03-23-2023 Neutrophil, Absolute 5.2 10 3/mcL Normal 2.9-6.2 [facility] ([place] Comment on above: Performed By: #### A DIFF, MG, GFR, CBC, BMP, ANEU ####[address] [place], [place] [address] BMPon 03-23-2023 BUN/Creatinine Ratio 6 ratio Low 7-27 [facility] ([place]) Comment on above: Performed By: #### A DIFF, MG, GFR, CBC, BMP, ANEU ####[address] [place], [place] [address] Calcium [Mass/Vol] 8.2 mg/dL Low 8.4-10.2 [facility] ([place] Comment on above: Performed By: #### A DIFF, MG, GFR, CBC, BMP, ANEU ####[address] [place], [place] [address] Chloride [Moles/Vol] 102 mmol/L Normal 98-107 [facility] ([place] Comment on above: Performed By: #### A DIFF, MG, GFR, CBC, BMP, ANEU ####[address] [place], [place] [address] CO2 [Moles/Vol] 26 mmol/L Normal 22-29 [facility] ([place] Comment on above: Performed By: #### A DIFF, MG, GFR, CBC, BMP, ANEU ####[address] [place], [place] [address] Creatinine [Mass/Vol] 0.77 mg/dL Normal 0.55-1.02 [facility] ([place]) Comment on above: Performed By: #### A DIFF, MG, GFR, CBC, BMP, ANEU ####[address] [place], [place] [address] Electrolyte Balance 10.0 mEq/L Normal 4.0-15.0 [facility] ([place]) Comment on above: Performed By: #### A DIFF, MG, GFR, CBC, BMP, ANEU ####[address] [place], [place] [address] Glucose [Mass/Vol] 191 mg/dL High 70-105 [facility] ([place] Comment on above: Performed By: #### A DIFF, MG, GFR, CBC, BMP, ANEU ####[address] [place], [place] [address] Potassium [Moles/Vol] 4.1 mmol/L Normal 3.5-5.1 [facility] ([place] Comment on above: Performed By: #### A DIFF, MG, GFR, CBC, BMP, ANEU ####[address] [place], [place] [address] Sodium [Moles/Vol] 138 mmol/L Normal 136-145 [facility] ([place] Comment on above: Performed By: #### A DIFF, MG, GFR, CBC, BMP, ANEU ####[address] [place], [place] [address] Urea nitrogen [Mass/Vol] 5 mg/dL Low 7-18 [facility] ([place] Comment on above: Performed By: #### A DIFF, MG, GFR, CBC, BMP, ANEU ####[address] [place], [place] [address] CBCon 03-23-2023 Erythrocyte distribution width (RBC) [Ratio] 13.8 % Normal 11.5-14.5 [facility] ([place] Comment on above: Performed By: #### A DIFF, MG, GFR, CBC, BMP, ANEU ####[address] [place], [place] [address] Hematocrit (Bld) [Volume fraction] 39.4 % Normal 37.0-47.0 [facility] ([place] Comment on above: Performed By: #### A DIFF, MG, GFR, CBC, BMP, ANEU ####[address] [place], [place] [address] Hgb 13.3 G/dL Normal 12.0-16.0 [facility] ([place] Comment on above: Performed By: #### A DIFF, MG, GFR, CBC, BMP, ANEU ####[address] [place], [place] [address] MCH (RBC) [Entitic mass] 29.6 pg Normal 27.0-31.2 [facility] ([place] Comment on above: Performed By: #### A DIFF, MG, GFR, CBC, BMP, ANEU ####[address] [place], [place] [address] MCHC 33.8 G/dL Normal 33.0-37.0 [facility] ([place] Comment on above: Performed By: #### A DIFF, MG, GFR, CBC, BMP, ANEU ####[address] [place], [place] [address] MCV (RBC) [Entitic vol] 87.7 fL Normal 80.0-94.0 [facility] ([place] Comment on above: Performed By: #### A DIFF, MG, GFR, CBC, BMP, ANEU ####[address] [place], [place] [address] Platelet 235 10 3/mcL Normal 130-400 [facility] ([place] Comment on above: Performed By: #### A DIFF, MG, GFR, CBC, BMP, ANEU ####[address] [place], [place] [address] Platelet mean volume (Bld) [Entitic vol] 8.9 fL Normal 7.4-10.4 [facility] [place] Comment on above: Performed By: #### A DIFF, MG, GFR, CBC, BMP, ANEU ####[address] [place], [place] [address] RBC 4.49 10 6/mcL Normal 4.20-5.40 [facility] [place] Comment on above: Performed By: #### A DIFF, MG, GFR, CBC, BMP, ANEU ####[address] [place], [place] [address] WBC 8.6 10 3/mcL Normal 4.6-10.8 [facility] ([place] Comment on above: Performed By: #### A DIFF, MG, GFR, CBC, BMP, ANEU ####[address] [place], [place] [address] LABORATORYOrdered By: Brenna Maria on 03-23-2023 Appearance (U) Clear (03/23/23 9:03 PM) Invalid Interpretation Code Clear AO Auto Urine SS Bilirubin Ql (U) Negative (03/23/23 9:03 PM) Invalid Interpretation Code Negative AO Auto Urine SS Color (U) Yellow (03/23/23 9:03 PM) Invalid Interpretation Code AO Auto Urine SS Glucose Test strip (U) [Mass/Vol] Negative Invalid Interpretation Code Negative AO Auto Urine SS Hemoglobin Auto test strip (U) [Mass/Vol] Negative (03/23/23 9:03 PM) Invalid Interpretation Code Negative AO Auto Urine SS Ketones Ql (U) Negative Invalid Interpretation Code Negative AO Auto Urine SS UA Leuk Est Negative (03/23/23 9:03 PM) Invalid Interpretation Code Negative AO Auto Urine SS UA Nitrite Negative (03/23/23 9:03 PM) Invalid Interpretation Code Negative AO Auto Urine SS UA pH 7.0 (03/23/23 9:03 PM) Invalid Interpretation Code 5.0 - 8.0 AO Auto Urine SS UA Protein Negative Invalid Interpretation Code Negative AO Auto Urine SS UA Spec Grav 1.015 (03/23/23 9:03 PM) Invalid Interpretation Code 1.015-1.025 AO Auto Urine SS UA Specimen Type Clean Catch (03/23/23 9:03 PM) Invalid Interpretation Code AO Auto Urine SS UA Urobilinogen 0.2 E.U./dL Invalid Interpretation Code 0.2-1.0 AO Auto Urine SS LABORATORYOrdered By: SYSTEM SYSTEM on 03-23-2023 Basophil, Absolute 0.0 103/mcL Invalid Interpretation Code 0.0 - 0.2 10^3/mcL AO Workflow SS Basophils/100 WBC (Bld) 0.3 % Invalid Interpretation Code 0.0 - 2.5 % AO Workflow SS Calcium [Mass/Vol] 8.2 mg/dL Invalid Interpretation Code 8.4 - 10.2 mg/dL AO ADM SS Chloride [Moles/Vol] 102 mmol/L Invalid Interpretation Code 98 - 107 mmol/L AO ADM SS CO2 [Moles/Vol] 26 mmol/L Invalid Interpretation Code 22 - 29 mmol/L AO ADM SS Creatinine [Mass/Vol] 0.77 mg/dL Invalid Interpretation Code 0.55 - 1.02 mg/dL AO ADM SS Electrolyte Balance 10.0 mEq/L Invalid Interpretation Code 4.0 - 15.0 mEq/L AO ADM SS Eosinophil, Absolute 0.1 103/mcL Invalid Interpretation Code 0.0 - 0.4 10^3/mcL AO Workflow SS Eosinophils/100 WBC (Bld) 1.7 % Invalid Interpretation Code 0.0 - 7.0 % AO Workflow SS Erythrocyte distribution width (RBC) [Ratio] 13.8 % Invalid Interpretation Code 11.5 - 14.5 % AO Workflow SS GFR/1.73 sq M.predicted among blacks MDRD (S/P/Bld) [Vol rate/Area] 103 ml/min/1.73sqm Invalid Interpretation Code AO Chemistry S Comment on above: Interpretive Data: GFR Population mean for , Non- Americans Ages 20-29 = 116 mL/min/1.73 sq.m. Ages 30-39 = 107 mL/min/1.73 sq.m. Ages 40-49 = 99 mL/min/1.73 sq.m. Ages 50-59 = 93 mL/min/1.73 sq.m. Ages 60-69 = 85 mL/min/1.73 sq.m. Ages 70+ = 75 mL/min/1.73 sq.m. Chronic Kidney Disease: Less than 60 mL/min/1.73 square meters End Stage Renal Disease: Less than 15 mL/min/1.73 square meters GFR/1.73 sq M.predicted among non-blacks MDRD (S/P/Bld) [Vol rate/Area] 85 ml/min/1.73sqm Invalid Interpretation Code AO Chemistry S Comment on above: Interpretive Data: GFR Population mean for , Non- Americans Ages 20-29 = 116 mL/min/1.73 sq.m. Ages 30-39 = 107 mL/min/1.73 sq.m. Ages 40-49 = 99 mL/min/1.73 sq.m. Ages 50-59 = 93 mL/min/1.73 sq.m. Ages 60-69 = 85 mL/min/1.73 sq.m. Ages 70+ = 75 mL/min/1.73 sq.m. Chronic Kidney Disease: Less than 60 mL/min/1.73 square meters End Stage Renal Disease: Less than 15 mL/min/1.73 square meters Glucose [Mass/Vol] 191 mg/dL Invalid Interpretation Code 70 - 105 mg/dL AO ADM SS Hematocrit (Bld) [Volume fraction] 39.4 % Invalid Interpretation Code 37.0 - 47.0 % AO Workflow SS Hemoglobin (Bld) [Mass/Vol] 13.3 G/dL Invalid Interpretation Code 12.0 - 16.0 G/dL AO Workflow SS Lymphocyte, Absolute 2.6 103/mcL Invalid Interpretation Code 0.8 - 3.9 10^3/mcL AO Workflow SS Lymphocytes/100 WBC (Bld) 30.5 % Invalid Interpretation Code 10.0 - 50.0 % AO Workflow SS Magnesium [Mass/Vol] 1.5 mg/dL Invalid Interpretation Code 1.8 - 2.4 mg/dL AO ADM SS MCH (RBC) [Entitic mass] 29.6 pg Invalid Interpretation Code 27.0 - 31.2 pg AO Workflow SS MCHC 33.8 G/dL Invalid Interpretation Code 33.0 - 37.0 G/dL AO Workflow SS MCV (RBC) [Entitic vol] 87.7 fL Invalid Interpretation Code 80.0 - 94.0 fL AO Workflow SS Monocyte, Absolute 0.6 103/mcL Invalid Interpretation Code 0.2 - 1.0 10^3/mcL AO Workflow SS Monocytes/100 WBC (Bld) 7.2 % Invalid Interpretation Code 1.7 - 13.0 % AO Workflow SS Neutrophil, Absolute 5.2 103/mcL Invalid Interpretation Code 2.9 - 6.2 10^3/mcL AO Workflow SS Neutrophils/100 WBC (Bld) 60.3 % Invalid Interpretation Code 37.0 - 80.0 % AO Workflow SS Platelet mean volume (Bld) [Entitic vol] 8.9 fL Invalid Interpretation Code 7.4 - 10.4 fL AO Workflow SS Platelets (Bld) [#/Vol] 235 103/mcL Invalid Interpretation Code 130 - 400 10^3/mcL AO Workflow SS Potassium [Moles/Vol] 4.1 mmol/L Invalid Interpretation Code 3.5 - 5.1 mmol/L AO ADM SS RBC (Bld) [#/Vol] 4.49 106/mcL Invalid Interpretation Code 4.20 - 5.40 10^6/mcL AO Workflow SS Sodium [Moles/Vol] 138 mmol/L Invalid Interpretation Code 136 - 145 mmol/L AO ADM SS Urea nitrogen [Mass/Vol] 5 mg/dL Invalid Interpretation Code 7 - 18 mg/dL AO ADM SS Urea nitrogen/Creatinine [Mass ratio] 6 ratio Invalid Interpretation Code 7 - 27 ratio AO ADM SS WBC (Bld) [#/Vol] 8.6 103/mcL Invalid Interpretation Code 4.6 - 10.8 10^3/mcL AO Workflow SS MGon 03-23-2023 Magnesium [Mass/Vol] 1.5 mg/dL Low 1.8-2.4 [facility] ([place] Comment on above: Performed By: #### A DIFF, MG, GFR, CBC, BMP, ANEU ####[address] [place], [place] [address] UAon 03-23-2023 Color (U) Yellow Normal [facility] ([place] Comment on above: Performed By: #### C BC, MDW, ANEU, ADIFF, CMP, GFR #### [address] [address] Glucose (U) [Mass/Vol] Negative Normal Negative [facility] ([place] Comment on above: Performed By: #### C HANS BUTLER, ANEU, ADIFF, CMP, GFR #### [address] [address] Ketones Ql (U) Negative Normal Negative [facility] ([place] Comment on above: Performed By: #### C HANS BUTLER, ANEU, ADIFF, CMP, GFR #### [address] [address] UA Appear Clear Normal Clear [facility] ([place] Comment on above: Performed By: #### HANS SCHWARTZ, AMRIT, ADIFF, CMP, GFR #### [address] [address] UA Blood Negative Normal Negative [facility] ([place] Comment on above: Performed By: #### C HANS BUTLER, AMRIT, ADIFF, CMP, GFR #### [address] [address] UA Leuk Est Negative Normal Negative [facility] ([place] Comment on above: Performed By: #### HANS SCHWARTZ, AMRIT, ADIFF, CMP, GFR #### [address] [address] UA Nitrite Negative Normal Negative [facility] ([place] Comment on above: Performed By: #### HANS SCHWARTZ, AMRIT, ADIFF, CMP, GFR #### [address] [address] UA pH 7.0 Normal 5.0 - 8.0 [facility] ([place] Comment on above: Performed By: #### HANS SCHWARTZ, ANEU, ADIFF, CMP, GFR #### [address] [address] UA Protein Negative Normal Negative [facility] ([place] Comment on above: Performed By: #### HANS SCHWARTZ, ANEU, ADIFF, CMP, GFR #### [address] [address] UA Spec Grav 1.015 Normal 1.015-1.025 [facility] ([place] Comment on above: Performed By: #### C HANS BUTLER, ANEU, ADIFF, CMP, GFR #### [address] [address] UA Specimen Type Clean Catch Normal [facility] ([place] Comment on above: Performed By: #### C HANS BUTLER, ANEU, ADIFF, CMP, GFR #### [address] [address] UA Urobilinogen 0.2 E.U./dL Normal 0.2-1.0 [facility] ([place] Comment on above: Performed By: #### HANS SCHWARTZ, AMRIT, ADIFF, CMP, GFR #### [place] [address] Urobilinogen (U) [Mass/Vol] Negative Normal Negative [facility] ([place] Comment on above: Performed By: #### HANS SCHWARTZ, AMRIT, ADIFF, CMP, GFR #### [place] [address] .Auto Diffon 03-22-2023 Basophil, Absolute 0.0 10 3/mcL Normal 0.0-0.2 [facility] ([place] Comment on above: Performed By: #### C HANS BUTLER, AMRIT, ADIFF, CMP, GFR #### [address] [address] Basophils/100 WBC (Bld) 0.4 % Normal 0.0-2.5 [facility] ([place] Comment on above: Performed By: #### AHNS SCHWARTZ, ANEU, ADIFF, CMP, GFR #### [place] [id number] Eosinophil, Absolute 0.2 10 3/mcL Normal 0.0-0.4 [facility] ([place] Comment on above: Performed By: #### HANS SCHWARTZ, ANEU, ADIFF, CMP, GFR #### [address] [address] Eosinophils/100 WBC (Bld) 2.1 % Normal 0.0-7.0 [facility] ([place] Comment on above: Performed By: #### C HANS BUTLER, ANEU, ADIFF, CMP, GFR #### [address] [address] Lymphocyte, Absolute 2.1 10 3/mcL Normal 0.8-3.9 [facility] ([place] Comment on above: Performed By: #### HANS SCHWARTZ, ANEU, ADIFF, CMP, GFR #### [address] [address] Lymphocytes/100 WBC (Bld) 19.3 % Normal 10.0-50.0 [facility] ([place] Comment on above: Performed By: #### HANS SCHWARTZ, ANEU, ADIFF, CMP, GFR #### [address] [address] Monocyte, Absolute 0.9 10 3/mcL Normal 0.2-1.0 [facility] ([place] Comment on above: Performed By: #### C HANS BUTLER, ANEU, ADIFF, CMP, GFR #### [address] [address] Monocytes/100 WBC (Bld) 8.0 % Normal 1.7-13.0 [facility] ([place] Comment on above: Performed By: #### HANS SCHWARTZ, ANEU, ADIFF, CMP, GFR #### [address] [address] Neutrophils/100 WBC (Bld) 70.2 % Normal 37.0-80.0 [facility] ([place] Comment on above: Performed By: #### HANS SCHWARTZ, ANEU, ADIFF, CMP, GFR #### [address] [address] .GFRon 03-22-2023 GFR 113 ml/min/1.73sqm Normal [facility] ([place] Comment on above: Result Comment: GFR Population mean for , Non- Americans Ages 20-29 = 116 mL/min/1.73 sq.m. Ages 30-39 = 107 mL/min/1.73 sq.m. Ages 40-49 = 99 mL/min/1.73 sq.m. Ages 50-59 = 93 mL/min/1.73 sq.m. Ages 60-69 = 85 mL/min/1.73 sq.m. Ages 70+ = 75 mL/min/1.73 sq.m. Chronic Kidney Disease: Less than 60 mL/min/1.73 square meters End Stage Renal Disease: Less than 15 mL/min/1.73 square meters Performed By: #### C HANS BUTLER, ANEU, ADIFF, CMP, GFR #### [address] [address] GFR Non- 93 ml/min/1.73sqm Normal [facility] ([place] Comment on above: Result Comment: GFR Population mean for , Non- Americans Ages 20-29 = 116 mL/min/1.73 sq.m. Ages 30-39 = 107 mL/min/1.73 sq.m. Ages 40-49 = 99 mL/min/1.73 sq.m. Ages 50-59 = 93 mL/min/1.73 sq.m. Ages 60-69 = 85 mL/min/1.73 sq.m. Ages 70+ = 75 mL/min/1.73 sq.m. Chronic Kidney Disease: Less than 60 mL/min/1.73 square meters End Stage Renal Disease: Less than 15 mL/min/1.73 square meters Performed By: #### C HANS BUTLER, ANEU, ADIFF, CMP, GFR #### [address] [address] .MDWon 03-22-2023 Monocyte Distribution Width 19.43 Normal 0.00-20.00 [facility] ([place] Comment on above: Result Comment: For ED adult patients suspected of sepsis, MDW<=20.0 does not rule out sepsis or risk of sepsis Performed By: #### C HANS BUTLER, ANEU, ADIFF, CMP, GFR #### [address] [address] .NEUABSon 03-22-2023 Neutrophil, Absolute 7.7 10 3/mcL High 2.9-6.2 [facility] ([place] Comment on above: Performed By: #### C HANS BUTLER, ANEU, ADIFF, CMP, GFR #### [address] [address] .Urinalysis Microscopic (AO) on 03-22-2023 UA Bacteria 1+ /hpf Abnormal [facility] ([place] Comment on above: Performed By: #### C HANS BUTLER, ANEU, ADIFF, CMP, GFR #### [address] [address] UA RBC 5-10 Abnormal None Seen [facility] ([place] Comment on above: Performed By: #### HANS SCHWARTZ, ANEU, ADIFF, CMP, GFR #### [address] [address] UA Squam Epithelial LOADED Abnormal None Seen [facility] ([place] Comment on above: Performed By: #### HANS SCHWARTZ, ANEU, ADIFF, CMP, GFR #### [address] [address] UA WBC LOADED Abnormal None Seen [facility] ([place] Comment on above: Performed By: #### HANS SCHWARTZ, ANEU, ADIFF, CMP, GFR #### [address] [address] BMPon 03-22-2023 BUN/Creatinine Ratio 11 ratio Normal 7-27 [facility] ([place] Comment on above: Performed By: #### HANS SCHWARTZ, ANEU, ADIFF, CMP, GFR #### [address] [address] Calcium [Mass/Vol] 8.9 mg/dL Normal 8.4-10.2 [facility] ([place] Comment on above: Performed By: #### HANS SCHWARTZ, ANEU, ADIFF, CMP, GFR #### [address] [address] Chloride [Moles/Vol] 100 mmol/L Normal 98-107 [facility] ([place] Comment on above: Performed By: #### C HANS BUTLER, ANEU, ADIFF, CMP, GFR #### [address] [address] CO2 [Moles/Vol] 24 mmol/L Normal 22-29 [facility] ([place] Comment on above: Performed By: #### HANS SCHWARTZ, AMRIT, ADIFF, CMP, GFR #### [address] [address] Creatinine [Mass/Vol] 0.71 mg/dL Normal 0.55-1.02 [facility] ([place] Comment on above: Performed By: #### HANS SCHWARTZ, AMRIT, ADIFF, CMP, GFR #### [address] [address] Electrolyte Balance 13.0 mEq/L Normal 4.0-15.0 [facility] ([place] Comment on above: Performed By: #### HANS SCHWARTZ, AMRIT, ADIFF, CMP, GFR #### [address] [address] Glucose [Mass/Vol] 313 mg/dL High 70-105 [facility] ([place] Comment on above: Performed By: #### HANS SCHWARTZ, AMRIT, ADIFF, CMP, GFR #### [address] [address] Potassium [Moles/Vol] 3.9 mmol/L Normal 3.5-5.1 [facility] ([place] Comment on above: Performed By: #### HANS SCHWARTZ, AMRIT, ADIFF, CMP, GFR #### [address] [address] Sodium [Moles/Vol] 137 mmol/L Normal 136-145 [facility] ([place] Comment on above: Performed By: #### HANS SCHWARTZ, ANEU, ADIFF, CMP, GFR #### [address] [address] Urea nitrogen [Mass/Vol] 8 mg/dL Normal 7-18 [facility] ([place] Comment on above: Performed By: #### C HANS BUTLER, ANEU, ADIFF, CMP, GFR #### [place] [address] CBCon 03-22-2023 Erythrocyte distribution width (RBC) [Ratio] 14.0 % Normal 11.5-14.5 [facility] [place] Comment on above: Performed By: #### C HANS BUTLER, ANEU, ADIFF, CMP, GFR #### [place] [address] Hematocrit (Bld) [Volume fraction] 40.6 % Normal 37.0-47.0 [facility] ([place] Comment on above: Performed By: #### C HANS BUTLER, AMRIT, ADIFF, CMP, GFR #### [place] [address] Hgb 13.6 G/dL Normal 12.0-16.0 [facility] [place] Comment on above: Performed By: #### C HANS BUTLER, ANEU, ADIFF, CMP, GFR #### [place] [address] MCH (RBC) [Entitic mass] 29.2 pg Normal 27.0-31.2 [facility] ([place] Comment on above: Performed By: #### C HANS BUTLER, ANEU, ADIFF, CMP, GFR #### [place] [address] MCHC 33.4 G/dL Normal 33.0-37.0 [facility] ([place] Comment on above: Performed By: #### C HANS BUTLER, ANEU, ADIFF, CMP, GFR #### [place] [address] MCV (RBC) [Entitic vol] 87.6 fL Normal 80.0-94.0 [facility] ([place] Comment on above: Performed By: #### HANS SCHWARTZ, ANEU, ADIFF, CMP, GFR #### [address] [address] Platelet 256 10 3/mcL Normal 130-400 [facility] ([place] Comment on above: Performed By: #### C HANS BUTLER, ANEU, ADIFF, CMP, GFR #### [place] [address] [place], [place] [address] Platelet mean volume (Bld) [Entitic vol] 8.8 fL Normal 7.4-10.4 [facility] [place] Comment on above: Performed By: #### C HANS BUTLER, ANEU, ADIFF, CMP, GFR #### [address] [address] RBC 4.64 10 6/mcL Normal 4.20-5.40 [facility] ([place] Comment on above: Performed By: #### C HANS BUTLER, AMRIT, ADIFF, CMP, GFR #### [address] [address] WBC 11.0 10 3/mcL High 4.6-10.8 [facility] ([place] Comment on above: Performed By: #### C HANS BUTLER, AMRIT, ADIFF, CMP, GFR #### [address] [address] [address] ABD/PELVIS W/ IV CONTRAST ONLYon 03-22-2023 CT ABD/PELVIS W/ IV CONTRAST ONLY ORIGINAL EXAMINATION: CT OF THE ABDOMEN AND PELVIS WITH CONTRAST 03/22/2023 12:26 pm TECHNIQUE: CT of the abdomen and pelvis was performed with the administration of intravenous contrast. Multiplanar reformatted images are provided for review. Automated exposure control, iterative reconstruction, and/or weight based adjustment of the mA/kV was utilized to reduce the radiation dose to as low as reasonably achievable. COMPARISON: October 06, 2019 HISTORY: ORDERING SYSTEM PROVIDED HISTORY: Reason for Exam: Right flank pain FINDINGS: No osseous abnormality identified. Lung bases are unremarkable. Minor fatty infiltration of the liver is noted with no focal lesions seen. Spleen, adrenal glands and pancreas are unremarkable. The left kidney is normal. The right kidney shows mild increased enhancement of the coffey of the renal pelvis and proximal ureter. No evidence for stone disease or perinephric infiltration.. No adenopathy, free air or free fluid seen. Solid pelvic organs and urinary bladder are unremarkable. No GI tract abnormality seen. The appendix is unremarkable. Small fat containing umbilical hernia is evident, and below this there is an additional fat containing ventral hernia. No additional contributory abnormality identified. IMPRESSION: Increased enhancement of the wall of the right renal pelvis and proximal ureter raises concern for potential pyelonephritis. Urinalysis correlation recommended. No other acute finding. Interpreted by: Tiffani Quevedo MD Preliminary Report By: Tiffani Quevedo MD Electronically signed By Tiffani Quevedo MD Dictated Date: 03/22/2023 1:00:26 PM Prelim Date: 03/22/2023 1:06:24 PM Sign Date: 03/22/2023 1:06:24 PM Ordering Provider: GREGG GARCIA [facility] ([place] LABORATORYOrdered By: Moon Dutta on 03-22-2023 Appearance (U) Cloudy *ABN* (03/22/23 11:32 AM) Invalid Interpretation Code Clear AO Auto Urine SS Bacteria LM.HPF (Urine sed) [#/Area] 1 /[HPF] Invalid Interpretation Code AO Auto Urine SS Bilirubin Ql (U) Negative (03/22/23 11:32 AM) Invalid Interpretation Code Negative AO Auto Urine SS Color (U) Yellow (03/22/23 11:32 AM) Invalid Interpretation Code AO Auto Urine SS Glucose Test strip (U) [Mass/Vol] 500 mg/dL Invalid Interpretation Code Negative AO Auto Urine SS HCG ( test) Ql Negative (03/22/23 11:32 AM) Invalid Interpretation Code AO Manual Urine SS Hemoglobin Auto test strip (U) [Mass/Vol] Moderate *ABN* (03/22/23 11:32 AM) Invalid Interpretation Code Negative AO Auto Urine SS Ketones Ql (U) Negative Invalid Interpretation Code Negative AO Auto Urine SS test (u) int Not detected Invalid Interpretation Code AO Manual Urine SS UA Leuk Est Trace *ABN* (03/22/23 11:32 AM) Invalid Interpretation Code Negative AO Auto Urine SS UA Nitrite Negative (03/22/23 11:32 AM) Invalid Interpretation Code Negative AO Auto Urine SS UA pH 6.0 (03/22/23 11:32 AM) Invalid Interpretation Code 5.0 - 8.0 AO Auto Urine SS UA Protein 100 mg/dL Invalid Interpretation Code Negative AO Auto Urine SS UA RBC 5-10 /HPF Invalid Interpretation Code None Seen AO Auto Urine SS UA Spec Grav 1.020 (03/22/23 11:32 AM) Invalid Interpretation Code 1.015-1.025 AO Auto Urine SS UA Specimen Type Clean Catch (03/22/23 11:32 AM) Invalid Interpretation Code AO Auto Urine SS UA Squam Epithelial LOADED /HPF Invalid Interpretation Code None Seen AO Auto Urine SS UA Urobilinogen 0.2 E.U./dL Invalid Interpretation Code 0.2-1.0 AO Auto Urine SS WBC LM.HPF (Urine sed) [#/Area] LOADED /HPF Invalid Interpretation Code None Seen AO Auto Urine SS LABORATORYOrdered By: SYSTEM SYSTEM on 03-22-2023 Basophil, Absolute 0.0 103/mcL Invalid Interpretation Code 0.0 - 0.2 10^3/mcL AO Workflow SS Basophils/100 WBC (Bld) 0.4 % Invalid Interpretation Code 0.0 - 2.5 % AO Workflow SS Calcium [Mass/Vol] 8.9 mg/dL Invalid Interpretation Code 8.4 - 10.2 mg/dL AO ADM SS Chloride [Moles/Vol] 100 mmol/L Invalid Interpretation Code 98 - 107 mmol/L AO ADM SS CO2 [Moles/Vol] 24 mmol/L Invalid Interpretation Code 22 - 29 mmol/L AO ADM SS Creatinine [Mass/Vol] 0.71 mg/dL Invalid Interpretation Code 0.55 - 1.02 mg/dL AO ADM SS Electrolyte Balance 13.0 mEq/L Invalid Interpretation Code 4.0 - 15.0 mEq/L AO ADM SS Eosinophil, Absolute 0.2 103/mcL Invalid Interpretation Code 0.0 - 0.4 10^3/mcL AO Workflow SS Eosinophils/100 WBC (Bld) 2.1 % Invalid Interpretation Code 0.0 - 7.0 % AO Workflow SS Erythrocyte distribution width (RBC) [Ratio] 14.0 % Invalid Interpretation Code 11.5 - 14.5 % AO Workflow SS GFR/1.73 sq M.predicted among blacks MDRD (S/P/Bld) [Vol rate/Area] 113 ml/min/1.73sqm Invalid Interpretation Code AO Chemistry S Comment on above: Interpretive Data: GFR Population mean for , Non- Americans Ages 20-29 = 116 mL/min/1.73 sq.m. Ages 30-39 = 107 mL/min/1.73 sq.m. Ages 40-49 = 99 mL/min/1.73 sq.m. Ages 50-59 = 93 mL/min/1.73 sq.m. Ages 60-69 = 85 mL/min/1.73 sq.m. Ages 70+ = 75 mL/min/1.73 sq.m. Chronic Kidney Disease: Less than 60 mL/min/1.73 square meters End Stage Renal Disease: Less than 15 mL/min/1.73 square meters GFR/1.73 sq M.predicted among non-blacks MDRD (S/P/Bld) [Vol rate/Area] 93 ml/min/1.73sqm Invalid Interpretation Code AO Chemistry S Comment on above: Interpretive Data: GFR Population mean for , Non- Americans Ages 20-29 = 116 mL/min/1.73 sq.m. Ages 30-39 = 107 mL/min/1.73 sq.m. Ages 40-49 = 99 mL/min/1.73 sq.m. Ages 50-59 = 93 mL/min/1.73 sq.m. Ages 60-69 = 85 mL/min/1.73 sq.m. Ages 70+ = 75 mL/min/1.73 sq.m. Chronic Kidney Disease: Less than 60 mL/min/1.73 square meters End Stage Renal Disease: Less than 15 mL/min/1.73 square meters Glucose [Mass/Vol] 313 mg/dL Invalid Interpretation Code 70 - 105 mg/dL AO ADM SS Hematocrit (Bld) [Volume fraction] 40.6 % Invalid Interpretation Code 37.0 - 47.0 % AO Workflow SS Hemoglobin (Bld) [Mass/Vol] 13.6 G/dL Invalid Interpretation Code 12.0 - 16.0 G/dL AO Workflow SS Lymphocyte, Absolute 2.1 103/mcL Invalid Interpretation Code 0.8 - 3.9 10^3/mcL AO Workflow SS Lymphocytes/100 WBC (Bld) 19.3 % Invalid Interpretation Code 10.0 - 50.0 % AO Workflow SS MCH (RBC) [Entitic mass] 29.2 pg Invalid Interpretation Code 27.0 - 31.2 pg AO Workflow SS MCHC 33.4 G/dL Invalid Interpretation Code 33.0 - 37.0 G/dL AO Workflow SS MCV (RBC) [Entitic vol] 87.6 fL Invalid Interpretation Code 80.0 - 94.0 fL AO Workflow SS Monocyte distribution width Auto (Bld) [Entitic vol] 19.43 1 Invalid Interpretation Code 0.00 - 20.00 AO Workflow SS Comment on above: Result Comment: For ED adult patients suspected of sepsis, MDW<=20.0 does not rule out sepsis or risk of sepsis Monocyte, Absolute 0.9 103/mcL Invalid Interpretation Code 0.2 - 1.0 10^3/mcL AO Workflow SS Monocytes/100 WBC (Bld) 8.0 % Invalid Interpretation Code 1.7 - 13.0 % AO Workflow SS Neutrophil, Absolute 7.7 103/mcL Invalid Interpretation Code 2.9 - 6.2 10^3/mcL AO Workflow SS Neutrophils/100 WBC (Bld) 70.2 % Invalid Interpretation Code 37.0 - 80.0 % AO Workflow SS Platelet mean volume (Bld) [Entitic vol] 8.8 fL Invalid Interpretation Code 7.4 - 10.4 fL AO Workflow SS Platelets (Bld) [#/Vol] 256 103/mcL Invalid Interpretation Code 130 - 400 10^3/mcL AO Workflow SS Potassium [Moles/Vol] 3.9 mmol/L Invalid Interpretation Code 3.5 - 5.1 mmol/L AO ADM SS RBC (Bld) [#/Vol] 4.64 106/mcL Invalid Interpretation Code 4.20 - 5.40 10^6/mcL AO Workflow SS Sodium [Moles/Vol] 137 mmol/L Invalid Interpretation Code 136 - 145 mmol/L AO ADM SS Urea nitrogen [Mass/Vol] 8 mg/dL Invalid Interpretation Code 7 - 18 mg/dL AO ADM SS Urea nitrogen/Creatinine [Mass ratio] 11 ratio Invalid Interpretation Code 7 - 27 ratio AO ADM SS WBC (Bld) [#/Vol] 11.0 103/mcL Invalid Interpretation Code 4.6 - 10.8 10^3/mcL AO Workflow SS No Panel Informationon 03-22 Culture Urine 50,000 - 100,000 cfu/ml Multiple bacterial morphotypes present. Probable Contamination. Suggest recollection if clinically indicated. [facility] Work Phone: PREGUon 03-22-2023 HCG ( test) Ql (U) Negative Normal [facility] ([place]) Comment on above: Performed By: #### C HANS BUTLER, ANEU, ADIFF, CMP, GFR #### [address] [address] test (u) int Not detected Invalid Interpretation Code [facility] ([place]) Comment on above: Performed By: #### HANS SCHWARTZ, ANEU, ADIFF, CMP, GFR #### [address] [address] UAon 03-22-2023 Color (U) Yellow Normal [facility] ([place]) Comment on above: Performed By: #### C HANS BUTLER, ANEU, ADIFF, CMP, GFR #### [place] [phone] Glucose (U) [Mass/Vol] 500 mg/dL Abnormal Negative [facility] ([place]) Comment on above: Performed By: #### HANS SCHWARTZ, ANEU, ADIFF, CMP, GFR #### [address] [address] Ketones Ql (U) Negative Normal Negative [facility] ([place]) Comment on above: Performed By: #### HANS SCHWARTZ, ANEU, ADIFF, CMP, GFR #### [address] [address] UA Appear Cloudy Abnormal Clear [facility] ([place]) Comment on above: Performed By: #### HANS SCHWARTZ, AMRIT, ADIFF, CMP, GFR #### [address] [address] UA Blood Moderate Abnormal Negative [facility] ([place]) Comment on above: Performed By: #### HANS SCHWARTZ, ANEU, ADIFF, CMP, GFR #### [address] [address] UA Leuk Est Trace Abnormal Negative [facility] ([place]) Comment on above: Performed By: #### HANS SCHWARTZ, ANEU, ADIFF, CMP, GFR #### [address] [address] UA Nitrite Negative Normal Negative [facility] ([place]) Comment on above: Performed By: #### C HANS BUTLER, ANEU, ADIFF, CMP, GFR #### [place] [phone] UA pH 6.0 Normal 5.0 - 8.0 [facility] ([place]) Comment on above: Performed By: #### HANS SCHWARTZ, ANEU, ADIFF, CMP, GFR #### [place] [address] UA Protein 100 mg/dL Abnormal Negative [facility] ([place] Comment on above: Performed By: #### HANS SCHWARTZ, ANEU, ADIFF, CMP, GFR #### [place] [phone] UA Spec Grav 1.020 Normal 1.015-1.025 [facility] ([place]) Comment on above: Performed By: #### HANS SCHWARTZ, ANEU, ADIFF, CMP, GFR #### [place] [address] UA Specimen Type Clean Catch Normal [facility] ([place] Comment on above: Performed By: #### C HANS BUTLER, ANEU, ADIFF, CMP, GFR #### [place] [phone] UA Urobilinogen 0.2 E.U./dL Normal 0.2-1.0 [facility] ([place]) Comment on above: Performed By: #### HANS SCHWARTZ, ANEU, ADIFF, CMP, GFR #### [place] [address] Urobilinogen (U) [Mass/Vol] Negative Normal Negative [facility] ([place]) Comment on above: Performed By: #### HANS SCHWARTZ, ANEU, ADIFF, CMP, GFR #### [place] [address] .GFRon 03-02-2023 GFR 109 ml/min/1.73sqm Normal [facility] ([place]) Comment on above: Result Comment: GFR Population mean for , Non- Americans Ages 20-29 = 116 mL/min/1.73 sq.m. Ages 30-39 = 107 mL/min/1.73 sq.m. Ages 40-49 = 99 mL/min/1.73 sq.m. Ages 50-59 = 93 mL/min/1.73 sq.m. Ages 60-69 = 85 mL/min/1.73 sq.m. Ages 70+ = 75 mL/min/1.73 sq.m. Chronic Kidney Disease: Less than 60 mL/min/1.73 square meters End Stage Renal Disease: Less than 15 mL/min/1.73 square meters Performed By: #### B MP, GFR #### [address] [address] GFR Non- 90 ml/min/1.73sqm Normal [facility] ([place]) Comment on above: Result Comment: GFR Population mean for , Non- Americans Ages 20-29 = 116 mL/min/1.73 sq.m. Ages 30-39 = 107 mL/min/1.73 sq.m. Ages 40-49 = 99 mL/min/1.73 sq.m. Ages 50-59 = 93 mL/min/1.73 sq.m. Ages 60-69 = 85 mL/min/1.73 sq.m. Ages 70+ = 75 mL/min/1.73 sq.m. Chronic Kidney Disease: Less than 60 mL/min/1.73 square meters End Stage Renal Disease: Less than 15 mL/min/1.73 square meters Performed By: #### B MP, GFR #### [address] [address] [facility] 03-02-2023 BUN/Creatinine Ratio 8 ratio Normal 7-27 [facility] ([place]) Comment on above: Performed By: #### B MP, GFR #### [address] [address] Calcium [Mass/Vol] 7.6 mg/dL Low 8.4-10.2 [facility] ([place]) Comment on above: Performed By: #### B MP, GFR #### [address] [address] Chloride [Moles/Vol] 101 mmol/L Normal 98-107 [facility] ([place]) Comment on above: Performed By: #### B MP, GFR #### [address] [address] CO2 [Moles/Vol] 24 mmol/L Normal 22-29 [facility] ([place]) Comment on above: Performed By: #### B MP, GFR #### [address] [address] Creatinine [Mass/Vol] 0.73 mg/dL Normal 0.55-1.02 [facility] ([place]) Comment on above: Performed By: #### B MP, GFR #### [address] [address] Electrolyte Balance 11.0 mEq/L Normal 4.0-15.0 [facility] ([place]) Comment on above: Performed By: #### B MP, GFR #### [address] [address] Glucose [Mass/Vol] 310 mg/dL High 70-105 [facility] ([place]) Comment on above: Performed By: #### B MP, GFR #### [address] [address] Potassium [Moles/Vol] 3.6 mmol/L Normal 3.5-5.1 [facility] ([place]) Comment on above: Performed By: #### B MP, GFR #### [address] [address] Sodium [Moles/Vol] 136 mmol/L Normal 136-145 [facility] ([place]) Comment on above: Performed By: #### B MP, GFR #### [address] [address] Urea nitrogen [Mass/Vol] 6 mg/dL Low 7-18 [facility] ([place]) Comment on above: Performed By: #### B MP, GFR #### [address] [address] .Auto Diffon 03-01-2023 Basophil, Absolute 0.0 10 3/mcL Normal 0.0-0.2 [facility] ([place]) Comment on above: Performed By: #### C HANS BUTLER, ANEU, ADIFF, CMP, GFR #### [address] [address] Basophils/100 WBC (Bld) 0.4 % Normal 0.0-2.5 [facility] ([place]) Comment on above: Performed By: #### C HANS BUTLER, ANEU, ADIFF, CMP, GFR #### [address] [address] Eosinophil, Absolute 0.1 10 3/mcL Normal 0.0-0.4 [facility] ([place]) Comment on above: Performed By: #### C HANS BUTLER, ANEU, ADIFF, CMP, GFR #### [address] [address] Eosinophils/100 WBC (Bld) 1.3 % Normal 0.0-7.0 [facility] ([place]) Comment on above: Performed By: #### C HANS BUTLER, ANEU, ADIFF, CMP, GFR #### [address] [address] Lymphocyte, Absolute 2.5 10 3/mcL Normal 0.8-3.9 [facility] ([place]) Comment on above: Performed By: #### HANS SCHWARTZ, ANEU, ADIFF, CMP, GFR #### [address] [address] Lymphocytes/100 WBC (Bld) 30.2 % Normal 10.0-50.0 [facility] ([place]) Comment on above: Performed By: #### HANS SCHWARTZ, ANEU, ADIFF, CMP, GFR #### [address] [address] Monocyte, Absolute 0.6 10 3/mcL Normal 0.2-1.0 [facility] ([place]) Comment on above: Performed By: #### HANS SCHWARTZ, ANEU, ADIFF, CMP, GFR #### [address] [address] Monocytes/100 WBC (Bld) 6.9 % Normal 1.7-13.0 [facility] ([place]) Comment on above: Performed By: #### C HANS BUTLER, AMRIT, ADIFF, CMP, GFR #### [address] [address] Neutrophils/100 WBC (Bld) 61.2 % Normal 37.0-80.0 [facility] ([place]) Comment on above: Performed By: #### C HANS BUTLER, AMRIT, ADIFF, CMP, GFR #### [address] [address] .GFRon 03-01-2023 GFR Non- 67 ml/min/1.73sqm Normal [facility] ([place]) Comment on above: Result Comment: GFR Population mean for , Non- Americans Ages 20-29 = 116 mL/min/1.73 sq.m. Ages 30-39 = 107 mL/min/1.73 sq.m. Ages 40-49 = 99 mL/min/1.73 sq.m. Ages 50-59 = 93 mL/min/1.73 sq.m. Ages 60-69 = 85 mL/min/1.73 sq.m. Ages 70+ = 75 mL/min/1.73 sq.m. Chronic Kidney Disease: Less than 60 mL/min/1.73 square meters End Stage Renal Disease: Less than 15 mL/min/1.73 square meters Performed By: #### C HANS BUTLER, AMRIT, ADIFF, CMP, GFR #### [address] [address] GFR 81 ml/min/1.73sqm Normal [facility] ([place]) Comment on above: Result Comment: GFR Population mean for , Non- Americans Ages 20-29 = 116 mL/min/1.73 sq.m. Ages 30-39 = 107 mL/min/1.73 sq.m. Ages 40-49 = 99 mL/min/1.73 sq.m. Ages 50-59 = 93 mL/min/1.73 sq.m. Ages 60-69 = 85 mL/min/1.73 sq.m. Ages 70+ = 75 mL/min/1.73 sq.m. Chronic Kidney Disease: Less than 60 mL/min/1.73 square meters End Stage Renal Disease: Less than 15 mL/min/1.73 square meters Performed By: #### C HANS BUTLER, ANEU, ADIFF, CMP, GFR #### [place] [phone] .MDWon 03-01-2023 Monocyte Distribution Width 18.08 Normal 0.00-20.00 [facility] ([place]) Comment on above: Result Comment: For ED adult patients suspected of sepsis, MDW<=20.0 does not rule out sepsis or risk of sepsis Performed By: #### C HANS BUTLER, ANEU, ADIFF, CMP, GFR #### [place] [address] .NEUABSon 03-01-2023 Neutrophil, Absolute 5.1 10 3/mcL Normal 2.9-6.2 [facility] ([place]) Comment on above: Performed By: #### C HANS BUTLER, AMRIT, ADIFF, CMP, GFR #### [place] [address] CBCon 03-01-2023 Erythrocyte distribution width (RBC) [Ratio] 13.7 % Normal 11.5-14.5 [facility] ([place]) Comment on above: Performed By: #### C HANS BUTLER, AMRIT, ADIFF, CMP, GFR #### [place] [address] Hematocrit (Bld) [Volume fraction] 43.3 % Normal 37.0-47.0 [facility] ([place]) Comment on above: Performed By: #### HANS SCHWARTZ, ANEU, ADIFF, CMP, GFR #### [place] [address] Hgb 14.3 G/dL Normal 12.0-16.0 [facility] ([place]) Comment on above: Performed By: #### HANS SCHWARTZ, ANEU, ADIFF, CMP, GFR #### [address] [address] MCH (RBC) [Entitic mass] 29.6 pg Normal 27.0-31.2 [facility] ([place]) Comment on above: Performed By: #### HANS SCHWARTZ, ANEU, ADIFF, CMP, GFR #### [address] [address] MCHC 33.1 G/dL Normal 33.0-37.0 [facility] ([place]) Comment on above: Performed By: #### C HANS BUTLER, ANEU, ADIFF, CMP, GFR #### [address] [address] MCV (RBC) [Entitic vol] 89.3 fL Normal 80.0-94.0 A [facility] ([place]) Comment on above: Performed By: #### C HANS BUTLER, ANEU, ADIFF, CMP, GFR #### [place] [phone] Platelet 212 10 3/mcL Normal 130-400 [facility] ([place]) Comment on above: Performed By: #### HANS SCHWARTZ, ANEU, ADIFF, CMP, GFR #### [address] [address] Platelet mean volume (Bld) [Entitic vol] 9.1 fL Normal 7.4-10.4 [facility] ([place]) Comment on above: Performed By: #### HANS SCHWARTZ, ANEU, ADIFF, CMP, GFR #### [address] [address] RBC 4.84 10 6/mcL Normal 4.20-5.40 [facility] ([place] Comment on above: Performed By: #### HANS SCHWARTZ, ANEU, ADIFF, CMP, GFR #### [place] [phone] WBC 8.4 10 3/mcL Normal 4.6-10.8 [facility] ([place]) Comment on above: Performed By: #### HANS SCHWARTZ, ANEU, ADIFF, CMP, GFR #### [address] [address] CMPon 03-01-2023 Albumin Level 3.5 G/dL Normal 3.5-5.0 [facility] ([place]) Comment on above: Performed By: #### C HANS BUTLER, AMRIT, ADIFF, CMP, GFR #### [address] [address] Albumin/Globulin [Mass ratio] 1.0 {ratio} Low 1.1-2.5 [facility] ([place]) Comment on above: Performed By: #### C HASN BUTLER, AMRIT, ADIFF, CMP, GFR #### [address] [address] ALP [Catalytic activity/Vol] 128 U/L Normal 40-135 [facility] ([place]) Comment on above: Performed By: #### C HANS BUTLER, AMRIT, ADIFF, CMP, GFR #### [address] [address] ALT [Catalytic activity/Vol] 44 U/L Normal 14-59 [facility] ([place]) Comment on above: Performed By: #### C HANS BUTLER, AMRIT, ADIFF, CMP, GFR #### [address] [address] AST [Catalytic activity/Vol] 42 U/L High 10-40 [facility] ([place]) Comment on above: Performed By: #### C HANS BUTLER, AMRIT, ADIFF, CMP, GFR #### [address] [address] Bili Total 0.2 mg/dL Normal 0.2-1.0 [facility] ([place]) Comment on above: Result Comment: Use of this assay is not recommended for patients undergoing treatment with eltrombopag due to the potential for falsely elevated results. Performed By: #### C HANS BUTLER, AMRIT, ADIFF, CMP, GFR #### [address] [address] BUN/Creatinine Ratio 7 ratio Normal 7-27 [facility] ([place]) Comment on above: Performed By: #### C HANS BUTLER, ANEU, ADIFF, CMP, GFR #### [address] [address] Calcium [Mass/Vol] 8.4 mg/dL Normal 8.4-10.2 [facility] ([place]) Comment on above: Performed By: #### C HANS BUTLER, AMRIT, ADIFF, CMP, GFR #### [address] [address] Chloride [Moles/Vol] 95 mmol/L Low 98-107 [facility] ([place]) Comment on above: Performed By: #### C HANS BUTLER, AMRIT, ADIFF, CMP, GFR #### [address] [address] CO2 [Moles/Vol] 21 mmol/L Low 22-29 [facility] ([place]) Comment on above: Performed By: #### C HANS BUTLER, AMRIT, ADIFF, CMP, GFR #### [address] [address] Creatinine [Mass/Vol] 0.95 mg/dL Normal 0.55-1.02 [facility] ([place]) Comment on above: Performed By: #### C HANS BUTLER, ANEU, ADIFF, CMP, GFR #### [address] [address] Electrolyte Balance 16.0 mEq/L High 4.0-15.0 [facility] ([place]) Comment on above: Performed By: #### C HANS BUTLER, AMRIT, ADIFF, CMP, GFR #### [address] [address] Globulin 3.5 G/dL Normal [facility] ([place]) Comment on above: Performed By: #### C HANS BUTLER, ANEU, ADIFF, CMP, GFR #### [address] [address] Glucose [Mass/Vol] 525 mg/dL Critically abnormal 70-105 [facility] ([place]) Comment on above: Performed By: #### C HANS BUTLER, AMRIT, ADIFF, CMP, GFR #### [address] [address] Potassium [Moles/Vol] 4.1 mmol/L Normal 3.5-5.1 [facility] ([place]) Comment on above: Performed By: #### C HANS BUTLER, ANEU, ADIFF, CMP, GFR #### [address] [address] Sodium [Moles/Vol] 132 mmol/L Low 136-145 [facility] ([place]) Comment on above: Performed By: #### C HANS BUTLER, AMRIT, ADIFF, CMP, GFR #### [address] [address] Total Protein 7.0 G/dL Normal 6.4-8.2 [facility] ([place]) Comment on above: Performed By: #### HANS SCHWARTZ, AMRIT, ADIFF, CMP, GFR #### [address] [address] Urea nitrogen [Mass/Vol] 7 mg/dL Normal 7-18 [facility] ([place]) Comment on above: Performed By: #### HANS SCHWARTZ, AMRIT, ADIFF, CMP, GFR #### [address] [address] [address] HEAD OR BRAIN W/O CONTRAS Ton 03-01-2023 CT HEAD OR BRAIN W/O CONTRAST ORIGINAL EXAMINATION: CT OF THE HEAD WITHOUT CONTRAST 03/01/2023 8:42 pm TECHNIQUE: CT of the head was performed without the administration of intravenous contrast. Automated exposure control, iterative reconstruction, and/or weight based adjustment of the mA/kV was utilized to reduce the radiation dose to as low as reasonably achievable. COMPARISON: None. HISTORY: ORDERING SYSTEM PROVIDED HISTORY: Reason for Exam: L side paresthesias FINDINGS: BRAIN/VENTRICLES: There is no acute intracranial hemorrhage, mass effect or midline shift. No abnormal extra-axial fluid collection. The olvera-white differentiation is maintained without evidence of an acute infarct. There is no evidence of hydrocephalus. ORBITS: The visualized portion of the orbits demonstrate no acute abnormality. SINUSES: The visualized paranasal sinuses and mastoid air cells demonstrate no acute abnormality. SOFT TISSUES/SKULL: No acute abnormality of the visualized skull or soft tissues. IMPRESSION: No acute intracranial abnormality. Interpreted by: Sarabjit Bloom Preliminary Report By: Sarabjit Bloom Electronically signed By Sarabjit Bloom Dictated Date: 03/01/2023 8:57:24 PM Prelim Date: 03/01/2023 8:58:57 PM Sign Date: 03/01/2023 8:58:57 PM Ordering Provider: BRITNEY MCLEOD [facility] ([place]) LABORATORYOrdered By: SYSTEM SYSTEM on 03-01-2023 Calcium [Mass/Vol] 7.6 mg/dL Invalid Interpretation Code 8.4 - 10.2 mg/dL AO ADM SS Chloride [Moles/Vol] 101 mmol/L Invalid Interpretation Code 98 - 107 mmol/L AO ADM SS CO2 [Moles/Vol] 24 mmol/L Invalid Interpretation Code 22 - 29 mmol/L AO ADM SS Creatinine [Mass/Vol] 0.73 mg/dL Invalid Interpretation Code 0.55 - 1.02 mg/dL AO ADM SS Electrolyte Balance 11.0 mEq/L Invalid Interpretation Code 4.0 - 15.0 mEq/L AO ADM SS GFR/1.73 sq M.predicted among blacks MDRD (S/P/Bld) [Vol rate/Area] 109 ml/min/1.73sqm Invalid Interpretation Code AO Chemistry S Comment on above: Interpretive Data: GFR Population mean for , Non- Americans Ages 20-29 = 116 mL/min/1.73 sq.m. Ages 30-39 = 107 mL/min/1.73 sq.m. Ages 40-49 = 99 mL/min/1.73 sq.m. Ages 50-59 = 93 mL/min/1.73 sq.m. Ages 60-69 = 85 mL/min/1.73 sq.m. Ages 70+ = 75 mL/min/1.73 sq.m. Chronic Kidney Disease: Less than 60 mL/min/1.73 square meters End Stage Renal Disease: Less than 15 mL/min/1.73 square meters GFR/1.73 sq M.predicted among non-blacks MDRD (S/P/Bld) [Vol rate/Area] 90 ml/min/1.73sqm Invalid Interpretation Code AO Chemistry S Comment on above: Interpretive Data: GFR Population mean for , Non- Americans Ages 20-29 = 116 mL/min/1.73 sq.m. Ages 30-39 = 107 mL/min/1.73 sq.m. Ages 40-49 = 99 mL/min/1.73 sq.m. Ages 50-59 = 93 mL/min/1.73 sq.m. Ages 60-69 = 85 mL/min/1.73 sq.m. Ages 70+ = 75 mL/min/1.73 sq.m. Chronic Kidney Disease: Less than 60 mL/min/1.73 square meters End Stage Renal Disease: Less than 15 mL/min/1.73 square meters Glucose [Mass/Vol] 310 mg/dL Invalid Interpretation Code 70 - 105 mg/dL AO ADM SS Potassium [Moles/Vol] 3.6 mmol/L Invalid Interpretation Code 3.5 - 5.1 mmol/L AO ADM SS Sodium [Moles/Vol] 136 mmol/L Invalid Interpretation Code 136 - 145 mmol/L AO ADM SS Urea nitrogen [Mass/Vol] 6 mg/dL Invalid Interpretation Code 7 - 18 mg/dL AO ADM SS Urea nitrogen/Creatinine [Mass ratio] 8 ratio Invalid Interpretation Code 7 - 27 ratio AO ADM SS Albumin BCP dye [Mass/Vol] 3.5 G/dL Invalid Interpretation Code 3.5 - 5.0 G/dL AO ADM SS Albumin/Globulin [Mass ratio] 1.0 {ratio} Invalid Interpretation Code 1.1 - 2.5 ratio AO ADM SS ALP [Catalytic activity/Vol] 128 U/L Invalid Interpretation Code 40 - 135 U/L AO ADM SS ALT With P-5'-P [Catalytic activity/Vol] 44 U/L Invalid Interpretation Code 14 - 59 U/L AO ADM SS AST With P-5'-P [Catalytic activity/Vol] 42 U/L Invalid Interpretation Code 10 - 40 U/L AO ADM SS Basophil, Absolute 0.0 103/mcL Invalid Interpretation Code 0.0 - 0.2 10^3/mcL AO Workflow SS Basophils/100 WBC (Bld) 0.4 % Invalid Interpretation Code 0.0 - 2.5 % AO Workflow SS Bilirubin [Mass/Vol] 0.2 mg/dL Invalid Interpretation Code 0.2 - 1.0 mg/dL AO ADM SS Comment on above: Interpretive Data: U se of this assay is not recommended for patients undergoing treatment with eltrombopag due to the potential for falsely elevated results. Calcium [Mass/Vol] 8.4 mg/dL Invalid Interpretation Code 8.4 - 10.2 mg/dL AO ADM SS Chloride [Moles/Vol] 95 mmol/L Invalid Interpretation Code 98 - 107 mmol/L AO ADM SS CO2 [Moles/Vol] 21 mmol/L Invalid Interpretation Code 22 - 29 mmol/L AO ADM SS Creatinine [Mass/Vol] 0.95 mg/dL Invalid Interpretation Code 0.55 - 1.02 mg/dL AO ADM SS Electrolyte Balance 16.0 mEq/L Invalid Interpretation Code 4.0 - 15.0 mEq/L AO ADM SS Eosinophil, Absolute 0.1 103/mcL Invalid Interpretation Code 0.0 - 0.4 10^3/mcL AO Workflow SS Eosinophils/100 WBC (Bld) 1.3 % Invalid Interpretation Code 0.0 - 7.0 % AO Workflow SS Erythrocyte distribution width (RBC) [Ratio] 13.7 % Invalid Interpretation Code 11.5 - 14.5 % AO Workflow SS GFR/1.73 sq M.predicted among blacks MDRD (S/P/Bld) [Vol rate/Area] 81 ml/min/1.73sqm Invalid Interpretation Code AO Chemistry S Comment on above: Interpretive Data: GFR Population mean for , Non- Americans Ages 20-29 = 116 mL/min/1.73 sq.m. Ages 30-39 = 107 mL/min/1.73 sq.m. Ages 40-49 = 99 mL/min/1.73 sq.m. Ages 50-59 = 93 mL/min/1.73 sq.m. Ages 60-69 = 85 mL/min/1.73 sq.m. Ages 70+ = 75 mL/min/1.73 sq.m. Chronic Kidney Disease: Less than 60 mL/min/1.73 square meters End Stage Renal Disease: Less than 15 mL/min/1.73 square meters GFR/1.73 sq M.predicted among non-blacks MDRD (S/P/Bld) [Vol rate/Area] 67 ml/min/1.73sqm Invalid Interpretation Code AO Chemistry S Comment on above: Interpretive Data: GFR Population mean for , Non- Americans Ages 20-29 = 116 mL/min/1.73 sq.m. Ages 30-39 = 107 mL/min/1.73 sq.m. Ages 40-49 = 99 mL/min/1.73 sq.m. Ages 50-59 = 93 mL/min/1.73 sq.m. Ages 60-69 = 85 mL/min/1.73 sq.m. Ages 70+ = 75 mL/min/1.73 sq.m. Chronic Kidney Disease: Less than 60 mL/min/1.73 square meters End Stage Renal Disease: Less than 15 mL/min/1.73 square meters Globulin 3.5 G/dL Invalid Interpretation Code AO ADM SS Glucose [Mass/Vol] 525 mg/dL Invalid Interpretation Code 70 - 105 mg/dL AO ADM SS Hematocrit (Bld) [Volume fraction] 43.3 % Invalid Interpretation Code 37.0 - 47.0 % AO Workflow SS Hemoglobin (Bld) [Mass/Vol] 14.3 G/dL Invalid Interpretation Code 12.0 - 16.0 G/dL AO Workflow SS Lymphocyte, Absolute 2.5 103/mcL Invalid Interpretation Code 0.8 - 3.9 10^3/mcL AO Workflow SS Lymphocytes/100 WBC (Bld) 30.2 % Invalid Interpretation Code 10.0 - 50.0 % AO Workflow SS MCH (RBC) [Entitic mass] 29.6 pg Invalid Interpretation Code 27.0 - 31.2 pg AO Workflow SS MCHC 33.1 G/dL Invalid Interpretation Code 33.0 - 37.0 G/dL AO Workflow SS MCV (RBC) [Entitic vol] 89.3 fL Invalid Interpretation Code 80.0 - 94.0 fL AO Workflow SS Monocyte distribution width Auto (Bld) [Entitic vol] 18.08 1 Invalid Interpretation Code 0.00 - 20.00 AO Workflow SS Comment on above: Result Comment: For ED adult patients suspected of sepsis, MDW<=20.0 does not rule out sepsis or risk of sepsis Monocyte, Absolute 0.6 103/mcL Invalid Interpretation Code 0.2 - 1.0 10^3/mcL AO Workflow SS Monocytes/100 WBC (Bld) 6.9 % Invalid Interpretation Code 1.7 - 13.0 % AO Workflow SS Neutrophil, Absolute 5.1 103/mcL Invalid Interpretation Code 2.9 - 6.2 10^3/mcL AO Workflow SS Neutrophils/100 WBC (Bld) 61.2 % Invalid Interpretation Code 37.0 - 80.0 % AO Workflow SS Platelet mean volume (Bld) [Entitic vol] 9.1 fL Invalid Interpretation Code 7.4 - 10.4 fL AO Workflow SS Platelets (Bld) [#/Vol] 212 103/mcL Invalid Interpretation Code 130 - 400 10^3/mcL AO Workflow SS Potassium [Moles/Vol] 4.1 mmol/L Invalid Interpretation Code 3.5 - 5.1 mmol/L AO ADM SS Protein [Mass/Vol] 7.0 G/dL Invalid Interpretation Code 6.4 - 8.2 G/dL AO ADM SS RBC (Bld) [#/Vol] 4.84 106/mcL Invalid Interpretation Code 4.20 - 5.40 10^6/mcL AO Workflow SS Sodium [Moles/Vol] 132 mmol/L Invalid Interpretation Code 136 - 145 mmol/L AO ADM SS Urea nitrogen [Mass/Vol] 7 mg/dL Invalid Interpretation Code 7 - 18 mg/dL AO ADM SS Urea nitrogen/Creatinine [Mass ratio] 7 ratio Invalid Interpretation Code 7 - 27 ratio AO ADM SS WBC (Bld) [#/Vol] 8.4 103/mcL Invalid Interpretation Code 4.6 - 10.8 10^3/mcL AO Workflow SS LABORATORYOrdered By: Andre Coppola on 03-01-2023 Appearance (U) Clear (03/01/23 7:51 PM) Invalid Interpretation Code Clear AO Auto Urine SS Bilirubin Ql (U) Negative (03/01/23 7:51 PM) Invalid Interpretation Code Negative AO Auto Urine SS Color (U) Yellow (03/01/23 7:51 PM) Invalid Interpretation Code AO Auto Urine SS Glucose Test strip (U) [Mass/Vol] >=1000 mg/dL Invalid Interpretation Code Negative AO Auto Urine SS HCG ( test) Ql Negative (03/01/23 7:51 PM) Invalid Interpretation Code AO Manual Urine SS Hemoglobin Auto test strip (U) [Mass/Vol] Trace *ABN* (03/01/23 7:51 PM) Invalid Interpretation Code Negative AO Auto Urine SS Ketones Ql (U) Negative Invalid Interpretation Code Negative AO Auto Urine SS test (u) int Not detected Invalid Interpretation Code AO Manual Urine SS UA Leuk Est Negative (03/01/23 7:51 PM) Invalid Interpretation Code Negative AO Auto Urine SS UA Nitrite Negative (03/01/23 7:51 PM) Invalid Interpretation Code Negative AO Auto Urine SS UA pH 6.5 (03/01/23 7:51 PM) Invalid Interpretation Code 5.0 - 8.0 AO Auto Urine SS UA Protein Negative Invalid Interpretation Code Negative AO Auto Urine SS UA Spec Grav 1.015 (03/01/23 7:51 PM) Invalid Interpretation Code 1.015-1.025 AO Auto Urine SS UA Specimen Type Clean Catch (03/01/23 7:51 PM) Invalid Interpretation Code AO Auto Urine SS UA Urobilinogen 0.2 E.U./dL Invalid Interpretation Code 0.2-1.0 AO Auto Urine SS PREGUon 03-01-2023 HCG ( test) Ql (U) Negative Normal [facility] ([place] Comment on above: Performed By: #### C HANS BUTLER, ANEU, ADIFF, CMP, GFR #### [address] [address] test (u) int Not detected Invalid Interpretation Code [facility] [place] Comment on above: Performed By: #### HANS SCHWARTZ, AMRIT, ADIFF, CMP, GFR #### [address] [address] UAon 03-01-2023 Color (U) Yellow Normal [facility] [place] Comment on above: Performed By: #### HANS SCHWARTZ, AMRIT, ADIFF, CMP, GFR #### [address] [address] Glucose (U) [Mass/Vol] mg/dL Abnormal Negative [facility] ([place] Comment on above: Performed By: #### HANS SCHWARTZ, AMRIT, ADIFF, CMP, GFR #### [address] [address] Ketones Ql (U) Negative Normal Negative [facility] [place] Comment on above: Performed By: #### HANS SCHWARTZ, AMRIT, ADIFF, CMP, GFR #### [address] [address] UA Appear Clear Normal Clear [facility] [place] Comment on above: Performed By: #### C HANS BUTLER, AMRIT, ADIFF, CMP, GFR #### [address] [address] UA Blood Trace Abnormal Negative [facility] [place] Comment on above: Performed By: #### C HANS BUTLER, ANEU, ADIFF, CMP, GFR #### [address] [address] UA Leuk Est Negative Normal Negative [facility] [place] Comment on above: Performed By: #### HANS SCHWARTZ, AMRIT, ADIFF, CMP, GFR #### [address] [address] UA Nitrite Negative Normal Negative [facility] [place] Comment on above: Performed By: #### C HANS BUTLER, AMRIT, ADIFF, CMP, GFR #### [address] [address] UA pH 6.5 Normal 5.0 - 8.0 [facility] [place] Comment on above: Performed By: #### HANS SCHWARTZ, AMRIT, ADIFF, CMP, GFR #### [address] [address] UA Protein Negative Normal Negative [facility] [place] Comment on above: Performed By: #### HANS SCHWARTZ, AMRIT, ADIFF, CMP, GFR #### [address] [address] UA Spec Grav 1.015 Normal 1.015-1.025 [facility] [place] Comment on above: Performed By: #### HANS SCHWARTZ, AMRIT, ADIFF, CMP, GFR #### [address] [address] UA Specimen Type Clean Catch Normal [facility] [place] Comment on above: Performed By: #### HASN SCHWARTZ, ANEU, ADIFF, CMP, GFR #### [address] [address] UA Urobilinogen 0.2 E.U./dL Normal 0.2-1.0 [facility] [place] Comment on above: Performed By: #### C HANS BUTLER, ANEU, ADIFF, CMP, GFR #### [address] [place], [place] [address] Urobilinogen (U) [Mass/Vol] Negative Normal Negative [facility] [place] Comment on above: Performed By: #### C HANS BUTLER, ANEU, ADIFF, CMP, GFR #### [address] [place], [place] [address] [facility] 09-11-2022 CNPN Telephone (STED) ---- MONIQUE ACEVEDO ([id number]) 1985 F Date Time Provider Department 09/11/22 LUPE GUTIERREZ During your visit today, we recorded the following information about you: Lupe Gutierrez APRN.YUSUF 09/11/2022 2:03 PM Signed Please call the patient. I reviewed her labs. Her antibodies are negative she is confirmed TYPE 2 diabetes. This is treated with lifestyle modifications - weight loss, healthy diet, medications. Her cholesterol panel is also elevated. STRONGLY recommend she sees the [facility] Field Service Consultant for meal planning. Her A1C is elevated, for good control she needs to have 7% or less Vitamin D is very low. I sent RX for VIT D3 - 50,000 Take 1 capsule once weekly with food for 12 weeks. After she completes the prescription strength dosing, obtain over the counter Vit D3 - 5000 international unit(s) and take 1 tab daily with food. Patient's request for medication is as follows Requested Prescriptions Signed Prescriptions Disp Refills cholecalciferol, Vitamin D3, (VITAMIN D3) 1,250 mcg (50,000 unit) cap capsule 12 capsule 0 Sig: Take 1 capsule once weekly with food (for 12 weeks) Authorizing Provider: LUPE GUTIERREZ Order entered - please phone pharmacy and notify patient. Lupe Gutierrez APRN.ACADEMIC INTERN Component Latest Ref Rng AND Units 09/08/2022 Glucose 74 - 99 mg/dL 182 (H) BUN 7 - 21 mg/dL 8 Creatinine 0.58 - 0.96 mg/dL 0.55 (L) Sodium 136 - 144 mmol/L 135 (L) Potassium 3.7 - 5.1 mmol/L 4.2 Chloride 97 - 105 mmol/L 101 CO2 22 - 30 mmol/L 21 (L) Anion Gap 9 - 18 mmol/L 13 eGFR >=60 mL/min/1.73mA? 123 Total Cholesterol, Nonfasting <200 mg/dL 236 (H) Triglycerides, Nonfasting <150 mg/dL 156 (H) HDL Cholesterol, Nonfasting >39 mg/dL 45 LDL Cholesterol, Nonfasting <100 mg/dL 160 (H) Non HDL Cholesterol, Nonfasting <130 mg/dL 191 (H) VLDL Cholesterol, Nonfasting <30 mg/dL 31 (H) Total Chol/HDL Ratio, Nonfasting <5.10 mg/dL 5.24 (H) LDL/HDL Ratio, Nonfasting <2.54 mg/dL 3.56 (H) Creatinine, Ur Random (UCRR) 20.0 - 300.0 mg/dL 128.6 Albumin, Urine Random mg/L <12.0 Albumin/Creat Ratio <30 mg/g <9 Glutamic Acid Decarboxylas Ab Qualitative Negative Negative Glutamic Acid Decarboxylase Ab <=5.0 IU/mL <5.0 Hemoglobin A1C 4.3 - 5.6 % 9.6 (H) Estimated Average Glucose mg/dL 229 Islet Cell Ab <1:4 <1:4 Vitamin B12 232 - 1,245 pg/mL 317 Vitamin D 25 Hydroxy 31.0 - 80.0 ng/mL 12.5 (L) Microsomal Antibody <5.6 IU/mL <3.0 C-Peptide 0.81 - 3.85 ng/mL 2.90 Barry Duron MA 09/15/2022 2:02 PM Signed Called and spoke to the patient and informed her of providers message. She expressed understanding. Patient is asking if a PSS can call her to assist in scheduling a visit with Endo hot mill roller. She tried to schedule online and was unable. She states that the first available that she was able to locate was in February. She prefers [facility] or somewhere near there. Thank you! Anamaria Anderson 09/15/2022 3:54 PM Signed Called PT, no VM set up. Sent with phones numbers to call and schedule this. Thanks Allergies As of Date: 09/11/2022 (No Known Allergies) Date Reviewed: 09/08/2022 Reviewed by: Julianna Rodriguez LPN - Fully Assessed Reason for Visit: Results [95] Order(s):cholecalci ferol, Vitamin D3, (VITAMIN D3) 1,250 mcg (50,000 unit) cap capsuleTake 1 capsule once weekly with food (for 12 weeks)Disp: 12 capsuleRfl: 0 Prescriptions as of 09/15/2022 - cholecalciferol, Vitamin D3, (VITAMIN D3) 1,250 mcg (50,000 unit) cap capsule Take 1 capsule once weekly with food (for 12 weeks) - semaglutide (OZEMPIC) 1 mg/0.75 ml subcutaneous pen injector Inject 0.25 mg for 4 weeks then increase to 0.5 mg and stay at that dose - Blood-Glucose Sensor (CalixSTYLE WILLIAN 3 SENSOR) daniel Change sensor every 14 days. USE FOR CONTINUOUS GLUCOSE MONITORING. Multiple insulin injections E11.9 - ondansetron (ZOFRAN) 4 mg tablet Take 1 tablet by mouth every 8 hours as needed for nausea/vomiting. - blood sugar diagnostic (ONETOUCH VERIO TEST STRIPS) test strip Check up to 2 times daily to calibrate CGM and / or double check BG for accuracy. Multiple insulin injections. - lancets (ONE TOUCH DELICA) 33 gauge Checks blood sugar 2 times daily to calibrate CGM and/or double check BG reading - Blood-Glucose Meter (ONETOUCH VERIO METER) Dispense one meter kit. E11.9 - alcohol swabs Uses 3 per day with insulin injections. - Insulin Syringe-Needle U-100 1 mL 31 gauge x 516 Uses 1 per day with insulin injections. - insulin lispro (HUMALOG KWIKPEN INSULIN) 100 unit/mL Inject 8 units with meals PLUS SS#1 (1 unit of insulin for every 50 over 150 blood sugar) - insulin glargine (BASAGLAR KWIKPEN U-100 INSULIN) 100 unit/mL (3 mL) Inject 20 units once daily - Insulin [place], Disposable, (PEN NEEDLE) 32 gauge x Inject 1 Each subcutaneously q 24 HR. Give with each insulin admin (more content not included)... Normal [facility] C-PEPTIDE BLDon 09-09-2022 C peptide [Mass/Vol] 2.90 ng/mL 0.81 - 3.85 ng/mL [facility] Comprehensive metabolic 2000 panelon 09-09-2022 Albumin [Mass/Vol] 4.1 g/dL 3.9 - 4.9 g/dL [facility] ALP [Catalytic activity/Vol] 98 U/L 34 - 123 U/L [facility] ALT [Catalytic activity/Vol] 22 U/L 7 - 38 U/L [facility] Anion gap [Moles/Vol] 13 mmol/L 9 - 18 mmol/L [facility] AST [Catalytic activity/Vol] 21 U/L 13 - 35 U/L [facility] Bilirubin [Mass/Vol] Low 0.2 - 1.3 mg/dL [facility] Calcium [Mass/Vol] 8.7 mg/dL 8.5 - 10. 2 mg/dL [facility] Chloride [Moles/Vol] 101 mmol/L 97 - 105 mmol/L [facility] CO2 [Moles/Vol] 21 mmol/L Low 22 - 30 mmol/L [facility] Creatinine [Mass/Vol] 0.55 mg/dL Low 0.58 - 0.96 mg/dL [facility] Estimated Glomerular Filtration Rate 123 mL/min/1.73m >=60 mL/min/1.73m [facility] Glucose [Mass/Vol] 182 mg/dL High 74 - 99 mg/dL [facility] Potassium [Moles/Vol] 4.2 mmol/L 3.7 - 5.1 mmol/L [facility] Protein [Mass/Vol] 6.8 g/dL 6.3 - 8.0 g/dL [facility] Sodium [Moles/Vol] 135 mmol/L Low 136 - 144 mmol/L [facility] Urea nitrogen [Mass/Vol] 8 mg/dL 7 - 21 mg/dL [facility] HbA1c (Bld)on 09-09-2022 Average glucose Estimated from glycated hemoglobin (Bld) [Mass/Vol] 229 mg/dL [facility] HbA1c (Bld) [Mass fraction] 9.6 % High 4.3 - 5.6 % [facility] LIPID PANEL, NONFASTINGon Cholesterol [Mass/Vol] 236 mg/dL High <200 mg/dL [facility] HDL Cholesterol, Nonfasting 45 mg/dL >39 mg/dL [facility] LDL Cholesterol, Nonfasting 160 mg/dL High <100 mg/dL [facility] LDL/HDL Ratio, Nonfasting 3.56 mg/dL High <2.54 mg/dL [facility] Non HDL Cholesterol, Nonfasting 191 mg/dL High <130 mg/dL [facility] Total Chol/HDL Ratio, Nonfasting 5.24 mg/dL High <5.10 mg/dL [facility] Triglycerides, Nonfasting 156 mg/dL High <150 mg/dL [facility] VLDL Cholesterol, Nonfasting 31 mg/dL High <30 mg/dL [facility] VITAMIN B12 BLOODon 09-10-19 23 Cobalamin (Vitamin B12) [Mass/Vol] 317 pg/mL 232 - 1,245 pg/mL [facility] 25(OH)D3 SerPl-mCncon 2022 25-hydroxyvitamin D3 [Mass/Vol] 12.5 ng/mL Low 31.0-80.0 [facility] Comment on above: Order Comment: Speci men Type: BLOOD SPECIMEN Ordering Facility: [facility] Address: [address] [place] [address] Performed By: #### 1 986-9 #### [facility] CLIA [id number] [address] [place] [address] [place] ALBUMIN/CREAT RATIO RND URon 09-08-2022 Albumin DL <= 20 mg/L (U) [Mass/Vol] mg/dL Normal [facility] Comment on above: Order Comment: Speci men Type: URINE SPECIMEN Ordering Facility: [facility] Address: [address] [id number] Performed By: #### U ACR #### [facility] CLIA [id number] [address] [place] [address] [place] Albumin/Creatinine (U) [Mass ratio] <9 Normal <30 [facility] Comment on above: Order Comment: Speci men Type: URINE SPECIMEN Ordering Facility: [facility] Address: [address] [place] [address] Result Comment: Adul t Male and Female Nephrotic Criteria: <30 mg/g is considered normal to mildly increased 30-300 mg/g is considered moderately increased >300 mg/g is considered severely increased KDIGO. (2013). KDIGO 2012 Clinical Practice Guideline for the Evaluation and Management of Chronic Kidney Disease. Official Journal of the International Society of Nephrology, 3(1), 1-150. Performed By: #### U ACR #### [facility] CLIA [id number] [address] [place] [address] [place] Creatinine (U) [Mass/Vol] 128.6 mg/dL Normal 20.0-300.0 [facility] Comment on above: Order Comment: Speci men Type: URINE SPECIMEN Ordering Facility: [facility] Address: [address] [place] [address] Performed By: #### U ACR #### [facility] CLIA [id number] [address] [place] [address] [place] C peptide SerPl-mCncon 09-08 C peptide [Mass/Vol] 2.90 ng/mL Normal 0.81-3.85 [facility] Comment on above: Order Comment: Speci men Type: BLOOD SPECIMEN Ordering Facility: [facility] Address: [address] [place] [address] Performed By: #### 1 986-9 #### [facility] CLIA [id number] [address] [place] [address] [place] CNOVon 09-08-2022 CNOV Office Visit (ENDWST) ---- MONIQUE ACEVEDO ([id number]) 1985 F Date Time Provider Department 09/08/22 2:00 PM LUPE GUTIERREZ During your visit today, we recorded the following information about you: Lupe Gutierrez APRN.CNP 09/09/2022 9:04 AM Signed NEW CONSULT OFFICE PROGRESS NOTE Reason for Consultation: DM Type 2 Referring Physician: SELF My final recommendations will be communicated back to the requesting physician by way of shared Medical record or letter via [place] mail. HISTORY OF PRESENT ILLNESS; Monique Acevedo is a 36 year old FEMALE is presenting as a new patient to me regarding DM Type 2. She was initially diagnosed with diabetes in 2016 Previously patient of [facility] RUCKER MD, ENDO for gestational DM, last visit 09/12/2014 Initially managed with diet Lost weight Regained weight since early this year Had hyperglycemia of 550 earlier - ER was in past week Ozempic/prandial/ba giovanna insulin started by PCP past several weeks She does have a family history of diabetes mellitus in her grandparents on father/mother side The patient has no known microvascular complications of diabetes. Monique has no know macrovascular complications of diabetes.. DM Education No Knows how to carb count minimally - tries to pay attention DIETARY HISTORY: Breakfast: skips OR will drink protein shake - [employer] brand protein shake. OR slim fast Lunch tuna on wheat OR egg salad w fruit/veggie OR burrito from [employer] - drinks diet pop, water Dinner spaghetti OR vegetable/protein/s tarch OR previously eating a fast food meals more often Snacks gets cravings for straight sugar, will eat chocolate or other sweets Drinks protein shake, water, occ diet pop and coffee from [employer] Exercise: active at work, when at home will walk dog CURRENT DM MEDS NONE SMBG Type of Monitor: Other Frequency of Monitoring: FREESTYLE WILLIAN times a day BG Values: Breakfast: 255-293 Lunch: 252 - 286 Dinner: 250-260 Bed-time: 250-260 7 day average 230 14 day average 233 30 days average 233 90 days average 233 Hypoglycemia: no Diet: Counts Carbs Exercise: as per above DM REVIEW OF SYSTEMS Last Eye Exam : 2 years Last Podiatry Exam: no issues Cardiorespiratory: negative, denies chest pain, pressure Claudication: no Dyslipidemia: No High Blood Pressure: No CURRENT LABS Component Latest Ref Rng AND Units 06/04/2022 Hemoglobin A1C 4.3 - 5.6 % 9.4 (H) Estimated Average Glucose mg/dL 223 Component Latest Ref Rng AND Units 02/03/2021 Hemoglobin A1C 4.3 - 5.6 % 6.3 (H) Estimated Average Glucose mg/dL 134 PAST MEDICAL HISTORY Diagnosis Date Anxiety Diabetes (HCC) diagnosed 2012 Infection of tooth 2014 Insulin dependent gestational diabetes mellitus, antepartum 10/22/2014 Major depressive disorder, single episode, unspecified remote 2004 Migraine, unspecified, without mention of intractable migraine without mention of status migrainosus no aura Obesity, unspecified PTSD (post-traumatic stress disorder) Tobacco use disorder quit 08/2014 Tobacco use in , antepartum 10/22/2014 Triplet in third trimester 10/22/2014 Unspecified asthma(493.90) occasional inhaler use Uterine rupture 06/18/2014 History of uterine rupture, per patient, diagnosed at the time of her second . Third was scheduled at 36 weeks PAST SURGICAL HISTORY Procedure Laterality Date DELIVERY ONLY 2004,2005, 2012,2014 , low cervical TUBAL LIGATION 2014 FAMILY HISTORY Problem Relation Age of Onset Asthma Mother Headache Mother migraine COPD Mother Heart Mother other (Other - Polio) Father Asthma Sister Psychiatry Sister bipolar, anxiety, OCD No Known Problems Brother Asthma Maternal Grandmother Hypertension Maternal Grandmother Coronary Artery Disease Maternal Grandfather Social History Tobacco Use Smoking status: Every Day Packs/day: 1.00 Years: 11.00 Pack years: 11.00 Types: Cigarettes Last attempt to quit: 08/17/2014 Years since quittin.0 Smokeless tobacco: Never Vaping Use Vaping Use: Never used Substance Use Topics Alcohol use: Yes Comment: socially Drug use: Not Currently Frequency: 1.0 times per week Types: Marijuana Comment: once daily or+ Current Outpatient Medications Medication Sig miconazole (MONISTAT 7) 2 % vaginal cream Use 1 Applicator vaginally as directed. 1 applicator vaginally at bedtime every other night x 2 weeks. L. acidophilus-L. rhamnosus 15 billion cell cap Take 1 capsule by mouth once daily. FLORAJEN WOMEN. If on antibiotic, take at least 1-2 hours before or after antibiotic. KEEP REFRIGERATED amoxicillin (AMOXIL) 875 mg tablet take 1 tablet by mouth twice a day for 5 days --TAKE WITH A PROBIOTIC mupirocin (BACTROBAN) 2 % ointment Apply to affected area three times daily (more content not included)... Normal [facility] Comprehensive metabolic 2000 panelon 09-08-2022 Albumin [Mass/Vol] 4.1 g/dL Normal 3.9-4.9 [facility] Comment on above: Order Comment: Speci men Type: BLOOD SPECIMEN Ordering Facility: [facility] Address: [facility] [place] [address] Performed By: #### 5 5454-3 #### [facility] CLIA [id number] [address] [place] [address] [place] ALP [Catalytic activity/Vol] 98 U/L Normal 34-123 [facility] Comment on above: Order Comment: Speci men Type: BLOOD SPECIMEN [facility]ing [facility]: [facility] [place] [address] Performed By: #### 5 5454-3 #### [facility] CLIA [id number] [address] [place] [address] [place] ALT [Catalytic activity/Vol] 22 U/L Normal 7-38 [facility] Comment on above: Order Comment: Speci men Type: BLOOD SPECIMEN Ordering Facility: [facility] Address: [facility] [place] [address] Performed By: #### 5 5454-3 #### [facility] CLIA [id number] [address] [id number] [place] Anion gap [Moles/Vol] 13 mmol/L Normal 9-18 [facility] Comment on above: Order Comment: Speci men Type: BLOOD SPECIMEN Ordering Facility: [facility] [place] [address] Performed By: #### 5 5454-3 #### [facility] CLIA [id number] [address] [id number] [place] AST [Catalytic activity/Vol] 21 U/L Normal 13-35 [facility] Comment on above: Order Comment: Speci men Type: BLOOD SPECIMEN Ordering Facility: [facility] Address: [address] [place] [address] Performed By: #### 5 5454-3 #### [facility] CLIA [id number] [address] [place] [address] [place] Bilirubin [Mass/Vol] mg/dL Low 0.2-1.3 [facility] Comment on above: Order Comment: Speci men Type: BLOOD SPECIMEN Ordering Facility: [facility] Address: [address] [place] [address] Performed By: #### 5 5454-3 #### [facility] CLIA [id number] [address] [place] [address] [place] Calcium [Mass/Vol] 8.7 mg/dL Normal 8.5-10.2 [facility] Comment on above: Order Comment: Speci men Type: BLOOD SPECIMEN Ordering Facility: [facility] Address: [address] [place] [address] Performed By: #### 5 5454-3 #### [facility] CLIA [id number] [address] [place] [address] [place] Chloride [Moles/Vol] 101 mmol/L Normal 97-105 [facility] Comment on above: Order Comment: Speci men Type: BLOOD SPECIMEN Ordering Facility: [facility] Address: [address] [place] [address] Performed By: #### 5 5454-3 #### [facility] CLIA [id number] [address] [place] [address] [place] CO2 [Moles/Vol] 21 mmol/L Low 22-30 [facility] Comment on above: Order Comment: Speci men Type: BLOOD SPECIMEN Ordering Facility: [facility] Address: [address] [place] [address] Performed By: #### 5 5454-3 #### [facility] [facility] CLIA [id number] [address] [place] [address] [place] Creatinine [Mass/Vol] 0.55 mg/dL Low 0.58-0.96 [facility] Comment on above: Order Comment: Arash boss Type: BLOOD SPECIMEN Ordering Facility: [facility] Address: [facility] [place] [address] Performed By: #### 5 5454-3 #### [facility] CLIA [id number] [address] [place] [address] [place] ESTIMATED GLOMERULAR FILTRATION RATE 123 mL/min/1.73m??? Normal >=60 [facility] Comment on above: Order Comment: Arash boss Type: BLOOD SPECIMEN Ordering Facility: [facility] Address: [facility] [place] [address] Result Comment: Cheryl mated Glomerular Filtration Rate (eGFR) is calculated using the 2020 CKD-EPI creatinine equation. This equation utilizes serum creatinine, sex, and age as parameters. The creatinine assay has traceable calibration to isotope dilution-mass spectrometry. Refer to KDIGO guidelines for clinical interpretation. In patients with unstable renal function, e.g. those with acute kidney injury, the eGFR may not accurately reflect actual GFR. Performed By: #### 5 5454-3 #### [facility] CLIA [id number] [address] [place] [address] [place] Glucose [Mass/Vol] 182 mg/dL High 74-99 [facility] Comment on above: Order Comment: Arash karyn Type: BLOOD SPECIMEN Ordering Facility: [facility] Address: [facility] [place] [address] Result Comment: The [place] Diabetes Association (ADA) provides guidance for cutoff values for fasting glucose and random glucose. The ADA defines fasting as no caloric intake for at least 8 hours. Fasting plasma glucose results between 100 to 125 mg/dL indicate increased risk for diabetes (prediabetes). Fasting plasma glucose results greater than or equal to 126 mg/dL meet the criteria for diagnosis of diabetes. In the absence of unequivocal hyperglycemia, results should be confirmed by repeat testing. In a patient with classic symptoms of hyperglycemia or hyperglycemic crisis, random plasma glucose results greater than or equal to 200 mg/dL meet the criteria for diagnosis of diabetes. Reference: Standards of Medical Care in Diabetes 2016, [place] Diabetes Association. Diabetes Care. 2016.39(Suppl 1). Performed By: #### 5 5454-3 #### [facility] CLIA [id number] [address] [place] [address] [place] Potassium [Moles/Vol] 4.2 mmol/L Normal 3.7-5.1 [facility] Comment on above: Order Comment: Arash boss Type: BLOOD SPECIMEN Ordering Facility: [facility] [place] [address] Performed By: #### 5 5454-3 #### [facility] CLIA [id number] [address] [place] [address] [place] Protein [Mass/Vol] 6.8 g/dL Normal 6.3-8.0 [facility] Comment on above: Order Comment: Arash boss Type: BLOOD SPECIMEN Ordering Facility: [facility] Address: [address] [place] [address] Performed By: #### 5 5454-3 #### [facility] CLIA [id number] [address] [place] [address] [place] Sodium [Moles/Vol] 135 mmol/L Low 136-144 [facility] Comment on above: Order Comment: Arash boss Type: BLOOD SPECIMEN Ordering Facility: [facility] [place] [address] Performed By: #### 5 5454-3 #### [facility] CLIA [id number] [address] [place], [place] [id number] [place] Urea nitrogen [Mass/Vol] 8 mg/dL Normal 7-21 [facility] Comment on above: Order Comment: Arash boss Type: BLOOD SPECIMEN Ordering Facility: [facility] Address: [address] [place] [id number] Performed By: #### 5 5454-3 #### [facility] CLIA [id number] [address] [place] [address] [place] GAD65 Ab Ser-aCncon 09-09-19 Glutamate decarboxylase 65 Ab Qn (S) <5.0 Normal <=5.0 [facility] Comment on above: Order Comment: Arash boss Type: BLOOD SPECIMEN Ordering Facility: [facility] Address: [address] [place] [address] Result Comment: Anti -glutamic acid decarboxylase antibody (GAD65) test usually in conjunction with another test such as IA-2 antibody is used as an aid in establishing the autoimmune nature of previously-diagnosed type I diabetes mellitus or in predicting of progression to type I diabetes mellitus in patients with certain autoimmune diseases including autoimmune gastritis among others. It is also used as an aid in diagnosis of stiff person syndrome and certain autoimmune nervous system diseases. Clinical correlation is required. Performed By: #### 5 5454-3 #### [facility] IA [id number] [address] [place] [address] [place] Glutamate decarboxylase 65 A b Qn (S)on 09-08-2022 GLUTAMIC ACID DECARBOXYLAS AB QUALITATIVE Negative Normal Negative [facility] Comment on above: Order Comment: Arash boss Type: BLOOD SPECIMEN Ordering Facility: [facility] Address: [address] [place] [address] Performed By: #### 5 5454-3 #### [facility] IA [id number] [address] [place] [address] [place] HbA1c (Bld)on 09-08-2022 Average glucose Estimated from glycated hemoglobin (Bld) [Mass/Vol] 229 mg/dL Normal [facility] Comment on above: Order Comment: Arash boss Type: BLOOD SPECIMEN Ordering Facility: [facility] Address: [address] [place], [place] [id number] Result Comment: eAG: (Estimated average glucose) is a calculated value from HgbA1c and is insurance account representative of the average blood glucose level in the last 2-3 month period. Performed By: #### 5 5454-3 #### [facility] CLIA [id number] [facility] [address] STATES OF [facility] HbA1c (Bld) [Mass fraction] 9.6 % High 4.3-5.6 [facility] Comment on above: Order Comment: Speci men Type: BLOOD SPECIMEN Ordering Facility: [facility] Address: [address] [place] [address] Result Comment: Amer ican Diabetes Association guidelines indicate that patients with HgbA1c in the range 5.7-6.4% are at increased risk for development of diabetes, and intervention by lifestyle modification may be beneficial. HgbA1c greater or equal to 6.5% is considered diagnostic of diabetes. Performed By: #### 5 5454-3 #### [facility] CLIA [id number] [address] [place] [address] ISLET CELL ABon 09-08-2022 ISLET CELL AB <1:4 Normal <1:4 [facility] Comment on above: Order Comment: Speci men Type: BLOOD SPECIMEN Ordering Facility: [facility] Address: [address] [place] [address] Result Comment: INTE RPRETIVE INFORMATION: Islet Cell Ab, IgG Islet cell antibodies (ICAs) are associated with type 1 diabetes (TID), an autoimmune endocrine disorder. ICAs may be present years before the onset of clinical symptoms. To calculate Juvenile Diabetes Foundation (JDF) units: multiply the titer x 5 (1:8 8 x 5 = 40 JDF Units). This test was developed and its performance characteristics determined by [facility]. It has not been cleared or approved by the US Food and Drug Administration. This test was performed in a CLIA certified laboratory and is intended for clinical purposes. Performed By: [facility] [address] [place] [id number] Legislative Analyst: Edgar Phillips MD, PhD Performed By: #### 1 986-9 #### [facility] CLIA [id number] [address] [place] [address] [place] LIPID PANEL, NONFASTINGon Cholesterol [Mass/Vol] 236 mg/dL High <200 [facility] Comment on above: Order Comment: Arash karyn Type: BLOOD SPECIMEN Ordering Facility: [facility] Address: [address] [place] [address] Result Comment: <200 mg/dL, Desirable 200-239 mg/dL, Borderline high >239 mg/dL, High Performed By: #### 5 5454-3 #### [facility] CLIA [id number] [address] [place] [address] [place] HDL CHOLESTEROL, NF 45 mg/dL Normal >39 [facility] Comment on above: Order Comment: Arash boss Type: BLOOD SPECIMEN Ordering Facility: [facility] Address: [address] [place] [address] Result Comment: 40-5 9 mg/dL, Acceptable >59 mg/dL, High: Negative risk factor for coronary heart disease <40 mg/dL, Low: Positive risk factor for coronary heart disease Performed By: #### 5 5454-3 #### [facility] CLIA [id number] [address] [place] [address] [place] LDL CHOLESTEROL, NF 160 mg/dL High <100 [facility] Comment on above: Order Comment: Arash karyn Type: BLOOD SPECIMEN Ordering Facility: [facility] Address: [address] [place] [address] Result Comment: <100 mg/dL, Optimal 100-129 mg/dL, Near optimal/above optimal 130-159 mg/dL, Borderline high 160-189 mg/dL, High >189 mg/dL, Very high Secondary prevention optimal LDL Cholesterol levels are recommended to be < 70 mg/dL Performed By: #### 5 5454-3 #### [facility] CLIA [id number] [address] [place] [address] [place] LDL/HDL RATIO, NF 3.56 mg/dL High <2.54 [facility] Comment on above: Order Comment: Elizabethi men Type: BLOOD SPECIMEN Ordering Facility: [facility] Address: [address] [place] [address] Result Comment: Daja juarez: 1. National Cholesterol Education Program ATP III Guideline At-A-Glance Quick Desk Reference: National Heart, Lung, and Blood Jackson. National Institutes of Health. 2001: NIH Publication No. 01-3305. 2. An International Atherosclerosis Society position paper: global recommendations for the management of dyslipidemia: executive summary, Atherosclerosis. 2014: 232(2):410-413. Performed By: #### 5 5454-3 #### [facility] CLIA [id number] [facility] [place] [address] [place] NON HDL CHOL, NF 191 mg/dL High <130 [facility] Comment on above: Order Comment: Speci men Type: BLOOD SPECIMEN Ordering Facility: [facility] Address: [facility] [place] [address] Result Comment: <130 mg/dL, Optimal 130-159 mg/dL, Near optimal/above optimal 160-189 mg/dL, Borderline high 190-219 mg/dL, High >219 mg/dL, Very high Secondary prevention optimal non HDL Cholesterol levels are recommended to be <100 mg/dL Performed By: #### 5 5454-3 #### [facility] CLIA [id number] [address] [place] [address] [place] T CHOL/HDL RATIO NF 5.24 mg/dL High <5.10 [facility] Comment on above: Order Comment: Speci men Type: BLOOD SPECIMEN Ordering Facility: [facility] Address: [address] [place] [address] Performed By: #### 5 5454-3 #### [facility] CLIA [id number] [facility] [place] [address] [place] TRIGLYCERIDES, NF 156 mg/dL High <150 [facility] Comment on above: Order Comment: Speci men Type: BLOOD SPECIMEN Ordering Facility: [facility] Address: [facility] [place] [address] Result Comment: <150 mg/dL, Normal 150-199 mg/dL, Borderline high 200-499 mg/dL, High >499 mg/dL, Very high Performed By: #### 5 5454-3 #### [facility] CLIA [id number] [address] [place] [address] [place] VLDL CHOLESTEROL, NF 31 mg/dL High <30 [facility] Comment on above: Order Comment: Arash boss Type: BLOOD SPECIMEN Ordering Facility: [facility] Address: [address] [place] [address] Performed By: #### 5 5454-3 #### [facility] CLIA [id number] [address] [place] [address] [place] THYROID PEROXIDASE ANTIBODY BLOODon 09-08-2022 TPO Ab Qn [IU]/mL Normal <5.6 [facility] Comment on above: Order Comment: Arash [facility] Type: BLOOD SPECIMEN Ordering Facility: [facility] Address: [address] [place] [address] Result Comment: Thyr oid Peroxidase Antibody test is used as an aid in diagnosis of autoimmune thyroid disease. Clinical correlation is required. Performed By: #### 1 986-9 #### [facility] CLIA [id number] [address] [place] [address] [place] Vit B12 SerPl-mCncon 023 Cobalamin (Vitamin B12) [Mass/Vol] 317 pg/mL Normal 232-1245 [facility] Comment on above: Order Comment: Arash [facility] Type: BLOOD SPECIMEN Ordering Facility: [facility] Address: [address] [place] [address] Performed By: #### 5 5454-3 #### [facility] CLIA [id number] [address] [place] [address] [place] .Auto Diffon 08-25-2022 Basophil, Absolute 0.1 10 3/mcL Normal 0.0-0.2 [facility] ([place]) Comment on above: Performed By: #### B MP, CBC, MDW, ADIFF, GFR, PHV, ANEU ####[address] [place], [place] [address] Basophils/100 WBC (Bld) 0.6 % Normal 0.0-2.5 [facility] ([place]) Comment on above: Performed By: #### B MP, CBC, MDW, ADIFF, GFR, PHV, ANEU ####[address] [place], [place] [address] Eosinophil, Absolute 0.1 10 3/mcL Normal 0.0-0.4 [facility] ([place]) Comment on above: Performed By: #### B MP, CBC, MDW, ADIFF, GFR, PHV, ANEU ####[address] [place], [place] [address] Eosinophils/100 WBC (Bld) 1.0 % Normal 0.0-7.0 [facility] ([place]) Comment on above: Performed By: #### B MP, CBC, MDW, ADIFF, GFR, PHV, ANEU ####[address] [place], [place] [address] Lymphocyte, Absolute 2.3 10 3/mcL Normal 0.8-3.9 [facility] ([place]) Comment on above: Performed By: #### B MP, CBC, MDW, ADIFF, GFR, PHV, ANEU ####[address] [place], [place] [address] Lymphocytes/100 WBC (Bld) 24.7 % Normal 10.0-50.0 [facility] ([place]) Comment on above: Performed By: #### B MP, CBC, MDW, ADIFF, GFR, PHV, ANEU ####[address] [place], [place] [address] Monocyte, Absolute 0.6 10 3/mcL Normal 0.2-1.0 [facility] ([place]) Comment on above: Performed By: #### B MP, CBC, MDW, ADIFF, GFR, PHV, ANEU ####[address] [place], [place] [address] Monocytes/100 WBC (Bld) 6.6 % Normal 1.7-13.0 A [facility] ([place]) Comment on above: Performed By: #### B KATIE, DOUGLAS, HANS, JUAQUIN, GFR, PHV, ANEU ####[address] [place], [place] [address] Neutrophils/100 WBC (Bld) 67.1 % Normal 37.0-80.0 [facility] ([place]) Comment on above: Performed By: #### B KATIE, DOUGLAS, HANS, JUAQUIN, GFR, PHV, ANEU ####[address] [place], [place] [address] .GFRon 08-25-2022 GFR 102 ml/min/1.73sqm Normal [facility] ([place]) Comment on above: Result Comment: GFR Population mean for , Non- Americans Ages 20-29 = 116 mL/min/1.73 sq.m. Ages 30-39 = 107 mL/min/1.73 sq.m. Ages 40-49 = 99 mL/min/1.73 sq.m. Ages 50-59 = 93 mL/min/1.73 sq.m. Ages 60-69 = 85 mL/min/1.73 sq.m. Ages 70+ = 75 mL/min/1.73 sq.m. Chronic Kidney Disease: Less than 60 mL/min/1.73 square meters End Stage Renal Disease: Less than 15 mL/min/1.73 square meters Performed By: #### C HANS BUTLER, ANEU, ADIFF, CMP, GFR #### [address] [place], [place] [address] GFR Non- 84 ml/min/1.73sqm Normal [facility] ([place]) Comment on above: Result Comment: GFR Population mean for , Non- Americans Ages 20-29 = 116 mL/min/1.73 sq.m. Ages 30-39 = 107 mL/min/1.73 sq.m. Ages 40-49 = 99 mL/min/1.73 sq.m. Ages 50-59 = 93 mL/min/1.73 sq.m. Ages 60-69 = 85 mL/min/1.73 sq.m. Ages 70+ = 75 mL/min/1.73 sq.m. Chronic Kidney Disease: Less than 60 mL/min/1.73 square meters End Stage Renal Disease: Less than 15 mL/min/1.73 square meters Performed By: #### C HANS BUTLER, ANEU, ADIFF, CMP, GFR #### [address] [address] .MDWon 08-25-2022 Monocyte Distribution Width 19.73 Normal 0.00-20.00 [facility] ([place]) Comment on above: Result Comment: For ED adult patients suspected of sepsis, MDW<=20.0 does not rule out sepsis or risk of sepsis Performed By: #### B MP, CBC, HANS, ADIFF, GFR, PHV, ANEU ####[place] [address] .NEUABSon 08-25-2022 Neutrophil, Absolute 6.1 10 3/mcL Normal 2.9-6.2 [facility] ([place]) Comment on above: Performed By: #### B MP, CBC, HANS, ADIFF, GFR, PHV, ANEU ####[place] [address] .Urinalysis Microscopic (AO) on 08-25-2022 UA Bacteria Trace Abnormal [facility] ([place]) Comment on above: Performed By: #### C HANS BUTLER, ANEU, ADIFF, CMP, GFR #### [address] [address] UA RBC 0-5 Abnormal None Seen [facility] ([place]) Comment on above: Performed By: #### C HANS BUTLER, ANEU, ADIFF, CMP, GFR #### [address] [address] UA Squam Epithelial 0-5 Abnormal None Seen [facility] ([place]) Comment on above: Performed By: #### C HANS BUTLER, ANEU, ADIFF, CMP, GFR #### [place] [id number] UA WBC 0-5 Abnormal None Seen [facility] ([place]) Comment on above: Performed By: #### C HANS BUTLER, ANEU, ADIFF, CMP, GFR #### [address] [address] BMPon 08-25-2022 BUN/Creatinine Ratio 13 ratio Normal 7-27 [facility] ([place]) Comment on above: Performed By: #### HANS SCHWARTZ, AMRIT, ADIFF, CMP, GFR #### [address] [address] Calcium [Mass/Vol] 9.3 mg/dL Normal 8.4-10.2 [facility] ([place]) Comment on above: Performed By: #### C HANS BUTLER, AMRIT, ADIFF, CMP, GFR #### [address] [address] Chloride [Moles/Vol] 96 mmol/L Low 98-107 [facility] ([place]) Comment on above: Performed By: #### HANS SCHWARTZ, AMRIT, ADIFF, CMP, GFR #### [address] [address] CO2 [Moles/Vol] 22 mmol/L Normal 22-29 [facility] ([place]) Comment on above: Performed By: #### HANS SCHWARTZ, AMRIT, ADIFF, CMP, GFR #### [address] [address] Creatinine [Mass/Vol] 0.78 mg/dL Normal 0.55-1.02 [facility] ([place]) Comment on above: Performed By: #### HANS SCHWARTZ, AMRIT, ADIFF, CMP, GFR #### [address] [address] Electrolyte Balance 14.0 mEq/L Normal 4.0-15.0 [facility] ([place]) Comment on above: Performed By: #### HANS SCHWARTZ, ANEU, ADIFF, CMP, GFR #### [address] [address] Glucose [Mass/Vol] 399 mg/dL High 70-105 [facility] ([place]) Comment on above: Performed By: #### C HANS BUTLER, ANEU, ADIFF, CMP, GFR #### Baron [address] [address] Potassium [Moles/Vol] 3.9 mmol/L Normal 3.5-5.1 [facility] ([place]) Comment on above: Performed By: #### C HANS BUTLER, ANEU, ADIFF, CMP, GFR #### [address] [address] Sodium [Moles/Vol] 132 mmol/L Low 136-145 [facility] ([place]) Comment on above: Performed By: #### C HANS BUTLER, ANEU, ADIFF, CMP, GFR #### [address] [place] [address] Urea nitrogen [Mass/Vol] 10 mg/dL Normal 7-18 [facility] ([place]) Comment on above: Performed By: #### C HANS BUTLER, ANEU, ADIFF, CMP, GFR #### [address] [address] CBCon 08-25-2022 Erythrocyte distribution width (RBC) [Ratio] 13.8 % Normal 11.5-14.5 [facility] ([place]) Comment on above: Performed By: #### B KATIE, CBC, HANS, JUAQUIN, GFR, PHV, ANEU ####[place] [address] [place], [place] [address] Hematocrit (Bld) [Volume fraction] 43.4 % Normal 37.0-47.0 [facility] ([place]) Comment on above: Performed By: #### B KATIE, CBC, HANS, ADIFF, GFR, PHV, ANEU ####[address] [place] [address] Hgb 14.4 G/dL Normal 12.0-16.0 [facility] ([place] Comment on above: Performed By: #### B MP, CBC, W, ADIFF, GFR, PHV, ANEU ####[address] [place], [place] [address] MCH (RBC) [Entitic mass] 29.4 pg Normal 27.0-31.2 [facility] ([place] Comment on above: Performed By: #### B MP, CBC, MDW, ADIFF, GFR, PHV, ANEU ####[address] [place], [place] [address] MCHC 33.2 G/dL Normal 33.0-37.0 [facility] ([place]) Comment on above: Performed By: #### B MP, CBC, MDW, ADIFF, GFR, PHV, ANEU ####[address] [place], [place] [address] MCV (RBC) [Entitic vol] 88.5 fL Normal 80.0-94.0 A [facility] ([place]) Comment on above: Performed By: #### B MP, CBC, MDW, ADIFF, GFR, PHV, ANEU ####[address] [place], [place] [address] Platelet 228 10 3/mcL Normal 130-400 [facility] ([place]) Comment on above: Performed By: #### B MP, CBC, MDW, ADIFF, GFR, PHV, ANEU ####[address] [place], [place] [address] Platelet mean volume (Bld) [Entitic vol] 9.0 fL Normal 7.4-10.4 [facility] ([place]) Comment on above: Performed By: #### B MP, CBC, MDW, ADIFF, GFR, PHV, ANEU ####[address] [place], [place] [address] RBC 4.90 10 6/mcL Normal 4.20-5.40 [facility] ([place]) Comment on above: Performed By: #### B MP, CBC, MDW, ADIFF, GFR, PHV, ANEU ####[address] [place], [place] [address] WBC 9.2 10 3/mcL Normal 4.6-10.8 [facility] ([place]) Comment on above: Performed By: #### B MP, CBC, MDW, ADIFF, GFR, PHV, ANEU ####[facility] [place], [place] [address] LABORATORYOrdered By: Nereyda Dominguez on 08-25-2022 Blood Glucose Interventions Notify physician (08/25/22 3:45 PM) [facility] Work Phone: Blood Glucose Testing Reason Routine (08/25/22 3:45 PM) [facility] Work Phone: Glucose [Mass/Vol] 202 mg/dL Invalid Interpretation Code 70 - 110 mg/dL [facility] Work Phone: LABORATORYOrdered By: Andre Coppola on 08-25-2022 Appearance (U) Slightly Cloudy *ABN* (08/25/22 2:18 PM) Invalid Interpretation Code Clear AO Auto Urine SS Bacteria LM.HPF (Urine sed) [#/Area] Trace /HPF Invalid Interpretation Code AO Auto Urine SS Bilirubin Ql (U) Negative (08/25/22 2:18 PM) Invalid Interpretation Code Negative AO Auto Urine SS Color (U) Yellow (08/25/22 2:18 PM) Invalid Interpretation Code AO Auto Urine SS Glucose Test strip (U) [Mass/Vol] >=1000 mg/dL Invalid Interpretation Code Negativemg/dL AO Auto Urine SS HCG ( test) Ql Negative (08/25/22 2:18 PM) Invalid Interpretation Code AO Manual Urine SS Hemoglobin Auto test strip (U) [Mass/Vol] Trace *ABN* (08/25/22 2:18 PM) Invalid Interpretation Code Negative AO Auto Urine SS Ketones Ql (U) Negative Invalid Interpretation Code Negativemg/dL AO Auto Urine SS test (u) int Not detected Invalid Interpretation Code AO Manual Urine SS UA Leuk Est Negative (08/25/22 2:18 PM) Invalid Interpretation Code Negative AO Auto Urine SS UA Nitrite Negative (08/25/22 2:18 PM) Invalid Interpretation Code Negative AO Auto Urine SS UA pH 6.0 (08/25/22 2:18 PM) Invalid Interpretation Code 5.0 - 8.0 AO Auto Urine SS UA Protein Negative Invalid Interpretation Code Negativemg/dL AO Auto Urine SS UA RBC 0-5 /HPF Invalid Interpretation Code None Seen/HPF AO Auto Urine SS UA Spec Grav 1.010 *ABN* (08/25/22 2:18 PM) Invalid Interpretation Code 1.015-1.025 AO Auto Urine SS UA Specimen Type Clean Catch (08/25/22 2:18 PM) Invalid Interpretation Code AO Auto Urine SS UA Squam Epithelial 0-5 /HPF Invalid Interpretation Code None Seen/HPF AO Auto Urine SS UA Urobilinogen 0.2 E.U./dL Invalid Interpretation Code 0.2-1.0E.U./dL AO Auto Urine SS WBC LM.HPF (Urine sed) [#/Area] 0-5 /HPF Invalid Interpretation Code None Seen/HPF AO Auto Urine SS LABORATORYOrdered By: Brenna Maria on 08-25-2022 Basophil, Absolute 0.1 103/mcL Invalid Interpretation Code 0.0 - 0.2 10^3/mcL AO Workflow SS Basophils/100 WBC (Bld) 0.6 % Invalid Interpretation Code 0.0 - 2.5 % AO Workflow SS Eosinophil, Absolute 0.1 103/mcL Invalid Interpretation Code 0.0 - 0.4 10^3/mcL AO Workflow SS Eosinophils/100 WBC (Bld) 1.0 % Invalid Interpretation Code 0.0 - 7.0 % AO Workflow SS Erythrocyte distribution width (RBC) [Ratio] 13.8 % Invalid Interpretation Code 11.5 - 14.5 % AO Workflow SS Hematocrit (Bld) [Volume fraction] 43.4 % Invalid Interpretation Code 37.0 - 47.0 % AO Workflow SS Hemoglobin (Bld) [Mass/Vol] 14.4 G/dL Invalid Interpretation Code 12.0 - 16.0 G/dL AO Workflow SS Lymphocyte, Absolute 2.3 103/mcL Invalid Interpretation Code 0.8 - 3.9 10^3/mcL AO Workflow SS Lymphocytes/100 WBC (Bld) 24.7 % Invalid Interpretation Code 10.0 - 50.0 % AO Workflow SS MCH (RBC) [Entitic mass] 29.4 pg Invalid Interpretation Code 27.0 - 31.2 pg AO Workflow SS MCHC 33.2 G/dL Invalid Interpretation Code 33.0 - 37.0 G/dL AO Workflow SS MCV (RBC) [Entitic vol] 88.5 fL Invalid Interpretation Code 80.0 - 94.0 fL AO Workflow SS Monocyte distribution width Auto (Bld) [Entitic vol] 19.73 Invalid Interpretation Code 0.00 - 20.00 AO Workflow SS Comment on above: Result Comment: For ED adult patients suspected of sepsis, MDW<=20.0 does not rule out sepsis or risk of sepsis Monocyte, Absolute 0.6 103/mcL Invalid Interpretation Code 0.2 - 1.0 10^3/mcL AO Workflow SS Monocytes/100 WBC (Bld) 6.6 % Invalid Interpretation Code 1.7 - 13.0 % AO Workflow SS Neutrophil, Absolute 6.1 103/mcL Invalid Interpretation Code 2.9 - 6.2 10^3/mcL AO Workflow SS Neutrophils/100 WBC (Bld) 67.1 % Invalid Interpretation Code 37.0 - 80.0 % AO Workflow SS pH (BldV) 7.46 [pH] Invalid Interpretation Code 7.31 - 7.41 AO Blood Gas SS Platelet mean volume (Bld) [Entitic vol] 9.0 fL Invalid Interpretation Code 7.4 - 10.4 fL AO Workflow SS Platelets (Bld) [#/Vol] 228 103/mcL Invalid Interpretation Code 130 - 400 10^3/mcL AO Workflow SS RBC (Bld) [#/Vol] 4.90 106/mcL Invalid Interpretation Code 4.20 - 5.40 10^6/mcL AO Workflow SS WBC (Bld) [#/Vol] 9.2 103/mcL Invalid Interpretation Code 4.6 - 10.8 10^3/mcL AO Workflow SS LABORATORYOrdered By: SYSTEM SYSTEM on 08-25-2022 Calcium [Mass/Vol] 9.3 mg/dL Invalid Interpretation Code 8.4 - 10.2 mg/dL AO ADM SS Chloride [Moles/Vol] 96 mmol/L Invalid Interpretation Code 98 - 107 mmol/L AO ADM SS CO2 [Moles/Vol] 22 mmol/L Invalid Interpretation Code 22 - 29 mmol/L AO ADM SS Creatinine [Mass/Vol] 0.78 mg/dL Invalid Interpretation Code 0.55 - 1.02 mg/dL AO ADM SS Electrolyte Balance 14.0 mEq/L Invalid Interpretation Code 4.0 - 15.0 mEq/L AO ADM SS GFR/1.73 sq M.predicted among blacks MDRD (S/P/Bld) [Vol rate/Area] 102 ml/min/1.73sqm Invalid Interpretation Code AO Chemistry S GFR/1.73 sq M.predicted among non-blacks MDRD (S/P/Bld) [Vol rate/Area] 84 ml/min/1.73sqm Invalid Interpretation Code AO Chemistry S Glucose [Mass/Vol] 399 mg/dL Invalid Interpretation Code 70 - 105 mg/dL AO ADM SS Potassium [Moles/Vol] 3.9 mmol/L Invalid Interpretation Code 3.5 - 5.1 mmol/L AO ADM SS Sodium [Moles/Vol] 132 mmol/L Invalid Interpretation Code 136 - 145 mmol/L AO ADM SS Urea nitrogen [Mass/Vol] 10 mg/dL Invalid Interpretation Code 7 - 18 mg/dL AO ADM SS Urea nitrogen/Creatinine [Mass ratio] 13 ratio Invalid Interpretation Code 7 - 27 ratio AO ADM SS PHVon 08-25-2022 pH Venous 7.46 High 7.31-7.41 [facility] ([place]) Comment on above: Performed By: #### C HANS BUTLER, ANEU, ADIFF, CMP, GFR #### [place] [id number] PREGUon 08-25-2022 HCG ( test) Ql (U) Negative Normal [facility] [place] Comment on above: Performed By: #### HANS SCHWARTZ, AMRIT, ADIFF, CMP, GFR #### [place] [id number] test (u) int Not detected Invalid Interpretation Code [facility] ([place] Comment on above: Performed By: #### HANS SCHWARTZ, ANEU, ADIFF, CMP, GFR #### [address] [address] UAon 08-25-2022 Color (U) Yellow Normal [facility] ([place] Comment on above: Performed By: #### HANS SCHWARTZ, ANEU, ADIFF, CMP, GFR #### [address] [address] Glucose (U) [Mass/Vol] mg/dL Abnormal Negative [facility] ([place] Comment on above: Performed By: #### HANS SCHWARTZ, ANEU, ADIFF, CMP, GFR #### [address] [address] Ketones Ql (U) Negative Normal Negative [facility] [place] Comment on above: Performed By: #### C HANS BUTLER, ANEU, ADIFF, CMP, GFR #### [address] [address] UA Appear Slightly Cloudy Abnormal Clear [facility] ([place] Comment on above: Performed By: #### C HANS BUTLER, ANEU, ADIFF, CMP, GFR #### [address] [address] UA Blood Trace Abnormal Negative [facility] ([place] Comment on above: Performed By: #### HANS SCHWARTZ, ANEU, ADIFF, CMP, GFR #### [address] [address] UA Leuk Est Negative Normal Negative [facility] ([place] Comment on above: Performed By: #### HANS SCHWARTZ, ANEU, ADIFF, CMP, GFR #### [address] [address] UA Nitrite Negative Normal Negative [facility] ([place] Comment on above: Performed By: #### C HANS BUTLER, ANEU, ADIFF, CMP, GFR #### [address] [address] UA pH 6.0 Normal 5.0 - 8.0 [facility] ([place] Comment on above: Performed By: #### HANS SCHWARTZ, ANEU, ADIFF, CMP, GFR #### [address] [address] UA Protein Negative Normal Negative [facility] [place] Comment on above: Performed By: #### HANS SCHWARTZ, ANEU, ADIFF, CMP, GFR #### [address] [address] UA Spec Grav 1.010 Abnormal 1.015-1.025 [facility] ([place] Comment on above: Performed By: #### C HANS BUTLER, ANEU, ADIFF, CMP, GFR #### [address] [address] UA Specimen Type Clean Catch Normal [facility] ([place] Comment on above: Performed By: #### C HANS BUTLER, ANEU, ADIFF, CMP, GFR #### [place] [address] [place], [place] [address] UA Urobilinogen 0.2 E.U./dL Normal 0.2-1.0 [facility] [place] Comment on above: Performed By: #### C HANS BUTLER, ANEU, ADIFF, CMP, GFR #### [place] [address] [place], [place] [address] Urobilinogen (U) [Mass/Vol] Negative Normal Negative [facility] ([place] Comment on above: Performed By: #### C HANS BUTLER, AMRIT, ADIFF, CMP, GFR #### [place] [address] [place], [place] [address] LUCIANA BY IFA SCREENon 06-04-19 Nuclear Ab IF (S) [Titer] Negative Normal Negative [facility] Comment on above: Order Comment: Arash boss Type: BLOOD SPECIMEN Ordering Facility: [facility] Address: [address] [place] [address] Result Comment: Anti -nuclear antibody test is used as an aid in diagnosis of systemic autoimmune diseases. Where positive and clinically warranted, follow-up using disease-specific testing is recommended. Low positive titers are not uncommon with advanced age, certain chronic infections, and malignancies among others. Test methodology: Indirect fluorescence immunoassay (IFA) using HEp-2 cells. Performed By: #### 5 5454-3 #### [facility] CLIA [id number] [address] [place] [address] [place] HbA1c (Bld)on 06-04-2022 Average glucose Estimated from glycated hemoglobin (Bld) [Mass/Vol] 223 mg/dL Normal [facility] Comment on above: Order Comment: Arash boss Type: BLOOD SPECIMEN Ordering Facility: [facility] Address: [address] [place], [place] [id number] Result Comment: eAG: (Estimated average glucose) is a calculated value from HgbA1c and is insurance account representative of the average blood glucose level in the last 2-3 month period. Performed By: #### 5 5454-3 #### [facility] CLIA [id number] [address] [place] [address] [place] HbA1c (Bld) [Mass fraction] 9.4 % High 4.3-5.6 [facility] Comment on above: Order Comment: Speci men Type: BLOOD SPECIMEN Ordering Facility: [facility] Address: [address] [place] [address] Result Comment: Amer [place] Diabetes Association guidelines indicate that patients with HgbA1c in the range 5.7-6.4% are at increased risk for development of diabetes, and intervention by lifestyle modification may be beneficial. HgbA1c greater or equal to 6.5% is considered diagnostic of diabetes. Performed By: #### 5 5454-3 #### [facility] CLIA [id number] [address] [place] [address] [place] Rheumatoid fact SerPl-aCncon 06-04-2022 Rheumatoid factor Qn [IU]/mL Normal <16 [facility] Comment on above: Order Comment: Speci men Type: BLOOD SPECIMEN Ordering Facility: [facility] Address: [facility] [place] [address] Performed By: #### 5 5454-3 #### [facility] CLIA [id number] [address] [place] [address] [place] Culture, urineOrdered By: Lucy Ambriz on 05-30-2022 Bacteria identified Cx Nom (U) Klebsiella pneumoniae sp pneum [facility] Basophil percentageOrdered B y: David Ambriz on 05-28-2022 Basophil percentage 10-25 SEEN /hpf 0-5 [facility] Bilirubin Test strip Ql (U)O rdered By: David Ambriz on 05-28-2022 Bilirubin Ql (U) Negative Negative [facility] Ketones Test strip Ql (U)Ord ered By: David Ambriz on 05-28-2022 Ketones Ql (U) 5 mg/dl Negative [facility] - Chemistry and C hemistry - challengeon 05-28-2022 Glucose [Mass/Vol] 242 mg/dL [facility] Bilirubin Ql (U) Small (1+) [facility] Glucose Ql (U) 1000 g/dL [facility] Ketones Ql (U) Negative [facility] pH (U) 6.5 [pH] [facility] Specific gravity (U) [Rel density] 1.020 [facility] HCG ( test) Ql (U) Negative [facility] - Hematology and Cell countson 05-28-2022 Hemoglobin Ql (U) Small [facility] - Specimen inform ationon 05-28-2022 Clarity (U) Cloudy [facility] Color (U) STRAW [facility] - Urinalysison Nitrite Ql (U) Negative [facility] Protein Ql (U) 1+ [facility] Mucus LM Ql (Urine sed)Order ed By: David Ambriz on 05-28-2022 Mucus Ql (Urine sed) 0 SEEN /hpf [facility] Nitrite Test strip Ql (U)Ord ered By: David Ambriz on 05-28-2022 Nitrite Ql (U) Negative Negative [facility] No Panel Informationon 05-28 Urine Leukocytes Positive [facility] Urine Non-Hemolyzed Blood [facility] Protein Test strip Ql (U)Ord ered By: David Ambriz on 05-28-2022 Protein Ql (U) 30 mg/dl Negative [facility] Squamous epithelial cells de tection in urine sediment by light microscopyOrdered By: David Ambriz on 05-28-2022 Epithelial cells.squamous LM Ql (Urine sed) 5-10 SEEN /hpf 5-10 [facility] Urine blood detectionOrdered By: David Ambriz on 05-28-2022 RBC Ql (U) 50 /ul Negative [facility] RBC Ql (U) 0-5 SEEN /hpf 0-5 [facility] Urine clarityOrdered By: Jason Ambriz on 05-28-2022 Clarity (U) Sl. Cloudy Clear [facility] Urine color determinationOrd ered By: David Ambriz on 05-28-2022 Color (U) Yellow Yellow [facility] Urine glucose detectionOrder ed By: David Ambriz on 05-28-2022 Glucose Ql (U) 1000 mg/dl Normal [facility] Urine leukocyte esterase det ection by dipstickOrdered By: David Ambriz on 05-28-2022 Leukocyte esterase Test strip Ql (U) 100 /ul Negative [facility] Urine pHOrdered By: David odom on 05-28-2022 pH (U) 6.5 [pH] 5.0 - 8.0 [facility] Urine sediment bacteria coun t by microscopy (number/high power field)Ordered By: David Ambriz on 05-28-2022 Bacteria LM.HPF (Urine sed) [#/Area] 2 /[HPF] None Seen [facility] Urine specific gravity measu rementOrdered By: David Ambriz on 05-28-2022 Specific gravity (U) [Rel density] 1.015 1.002-1.030 [facility] Urobilinogen Auto test strip Ql (U)Ordered By: David Ambriz on 05-28-2022 Urobilinogen Ql (U) Normal mg/dl Normal [facility] C. trachomatis+N. gonorrhoea e DNA YURIY+probe Ql (Unsp spec)on 05-13-2022 C. trachomatis DNA YURIY+probe Ql (Unsp spec) Negative Negative for Chlamydia trachomatis by amplificaton [facility] N. gonorrhoeae DNA YURIY+probe Ql (Unsp spec) Negative Negative for Neisseria gonorrhoeae by amplification [facility] BACTERIAL VAGINOSIS AMPLIFIC ATIONon 05-12-2022 Lactobacillus crispatus+gasseri+jense kyle + Gardnerella vaginalis + Atopobium vaginae rRNA YURIY+probe Ql (Vag fld) Positive Abnormal Negative for bacterial vaginosis [facility] Lactobacillus crispatus+gasseri+jense kyle + Gardnerella vaginalis + Atopobium vaginae rRNA YURIY+probe Ql (Vag fld) Positive Abnormal Negative for bacterial vaginosis [facility] Comment on above: Order Comment: Speci men Type: BLOOD SPECIMEN Ordering Facility: [facility] Address: [address] [place] [address] Performed By: #### 5 5454-3 #### [facility] CLIA [id number] [address] [place] [address] [place] C. trachomatis+N. gonorrhoea e DNA YURIY+probe Ql (Unsp spec)on 05-12-2022 C. trachomatis DNA YURIY+probe Ql (Unsp spec) Negative Normal Negative for Chlamydia trachomatis by amplificaton [facility] Comment on above: Order Comment: Speci men Type: SWAB Ordering Facility: [facility] Address: [address] [place] [address] Performed By: #### 3 6902-5 #### [facility] CLIA [id number] [address] [place] [address] N. gonorrhoeae DNA YURIY+probe Ql (Unsp spec) Negative Normal Negative for Neisseria gonorrhoeae by amplification [facility] Comment on above: Order Comment: Speci men Type: SWAB Ordering Facility: [facility] Address: [address] [place] [address] Performed By: #### 3 6902-5 #### [facility] CLIA [id number] [address] [place] [address] OF [facility] BAILEY / TRICHOMONAS AMPLIF ICATIONon 05-12-2022 C. glabrata RNA YURIY+probe Ql (Vag fld) Negative Negative for Bailey glabrata [facility] Bailey albicans, C. dubliniensis, C. parapsilosis, and C. tropicalis RNA YURIY+probe Ql (Vag fld) Positive Abnormal Negative for Bailey species [facility] T. vaginalis DNA YURIY+probe Ql (Unsp spec) Negative Negative for Trichomonas vaginalis by amplification [facility] BAILEY / TRICHOMONAS AMPLIFICATION BAILEY SPECIES GROUP RNA: Positive for Bailey species BAILEY GLABRATA RNA: Negative for Bailey glabrata TRICH VAG AMPLIFICATION RNA: Negative for Trichomonas vaginalis by amplification Abnormal [facility] Comment on above: Performed By: #### 5 5454-3 #### [facility] CLIA [id number] [address] [place] [address] [place] CNOVon 05-12-2022 CNOV Office Visit (OBGYWM) ---- MONIQUE ACEVEDO ([id number]) 1985 F Date Time Provider Department 05/12/22 11:30 AM SAVANNAH VALVERDE During your visit today, we recorded the following information about you: Blood pressure Weight Last Period 118 108.9 kg 04/16/22 Savannah Valverde APRN.[facility] 05/12/2022 12:59 PM Signed Esthetics Instructor offered: Patient declines. Monique Acevedo is a 36 year old female who presents for vaginal pruritis and discharge for 4 days. Has been on antibiotics for ear infection. Has history of boils and has 2 currently. She has been picking them. Has been having a hard time completely emptying bladder and needs to sit forward to finish voiding. Was considering bariatric surgery but stopped because of opinions of family and friends. Vaginal discharge: small amount creamy Itching: was itching but no longer Dyspareunia: N/A Fever/chills: No Abdominal pain: No Bladder: Negative for dysuria or frequency Bowel: No blood in stool, pain with BM, tarry stool, persistent diarrhea or constipation Any new sexual partners or concern for STD exposure: Yes, unsure about partner fidelity Any history of STDs: None Does your partner have any new complaints: No Are you currently taking any medications to treat vaginitis: No Do you use feminine sprays, douches or deodorants: Baby wipes Menstrual cycle: cycles every month and 4-5 days of flow Contraception: tubal sterilization Last pap: 2020, normal Past medical, surgical, social history, medications and allergies reviewed and updated. OBJECTIVE: BP 118/78 Wt 240 lb (108.9kg) LMP 04/16/2022 GENERAL: Well developed, well nourished in no apparent distress ABDOMEN: soft, non-tender, and no masses PELVIC: external genitalia normal, normal Bartholin's glands, urethra, [place]'s glands, no vulvar lesions, no cervical lesions, physiologic discharge present, normal appearing perineal body and perianal region, 2 areas of resolving folliculitis to mons BIMANUAL: uterus normal size, shape and consistency, no adnexal masses, and non-tender. ASSESSMENT/PLAN: 1. Vaginal discharge - ICD9: 623.5, ICD10: N89.8 (primary diagnosis) - vulvar hygiene instructions reviewed - GC/CHLAMYDIA DNA DET - BAILEY / TRICHOMONAS AMPLIFICATION - BACTERIAL VAGINOSIS AMPLIFICATION - discussed relationship between elevated blood sugars and yeast. If yeast infection, Monistat 7 or generic - a applicator full at bedtime every other night or 1/2 applicator every night x 2 weeks and possibly fluconazole. 2. Folliculitis - ICD9: 704.8, ICD10: L73.9 - long-term. Currently resolving. - Encouraged to avoid picking and squeezing so that bacteria is not introduced from fingernails. Wash with Dial antibacterial soap. - advised to avoid shaving and clip only in direction of hair growth. - MUPIROCIN 2 % TOPICAL OINTMENT 3. Screen for STD (sexually transmitted disease) - ICD9: V74.5, ICD10: Z11.3 - GC/CHLAMYDIA DNA DET - BAILEY / TRICHOMONAS AMPLIFICATION ASSESSMENT/PLAN: 4. Type 2 diabetes mellitus with other specified complication, without long-term current use of insulin (HCC) - ICD9: 250.80, ICD10: E11.69 - Admits to feeling like blood sugars have been elevated. Does not check BS and does not keep regular visits with PCP to manage. Encouraged to make appointment . 5. Class 2 severe obesity with serious comorbidity and body mass index (BMI) of 37.0 to 37.9 in adult, unspecified obesity type (HCC) - ICD9: 278.01, V85.37, ICD10: E66.01, Z68.37 - Has current referral to BMI. No-showed 2 psychology appointments - gave her rescheduling information from EMR. Discussed bariatric surgery and medical management. Encouraged that she discuss RBA with the medical experts instead of relying on anecdotal experiences. Will notify of results. Follow- up as needed. Savannah Valverde APRN.CNP Medical Decision Making: Problems: Low: Acute, uncomplicated illness or injury Moderate: 1+ chronic illnesses with change Data: Unique test(s) ordered: 2 Risk: Moderate: Drug management Medical Decision Making Level: 4 - Moderate Savannah Valverde APRN.CNP 05/12/2022 12:09 PM Addendum Patient was a no-show for the Psychology Orientation/Welcome group. If she reschedules, it should be within another Welcome group. Wash with Dial antibacterial soap. Mupirocin ointment. Do not shave - you can clip only in direction of hair growth. Monistat 7 or generic - a applicator full at bedtime every other night or 1/2 applicator every night x 2 weeks. Allergies As of Date: 05/12/2022 (No Known Allergies) Date Reviewed: 05/12/2022 Reviewed by: Savannah Valverde APRN.ACADEMIC INTERN - Fully Assessed Reason for Visit: Vaginal Problem [117] Primary Visit Diagnosis:Vaginal discharge [N89.8] Other Visit Diagnoses:Folliculi tis [L73.9] Screen for STD (sexually transmitted disease) [Z11.3] Type 2 (more content not included)... Normal [facility] [id number] 05-06-2022 SARS-CoV-2 (COVID-19) RNA YURIY+probe Ql (Unsp spec) Negative Normal Negative [facility] [place] Comment on above: Performed By: #### C CARRIE, HANS, AMRIT, ADABIEL, CMP, GFR #### [address] [address] SARS-CoV-2 (COVID-19) RNA YURIY+probe Ql (Unsp spec) Normal [facility] ([place]) Comment on above: Result Comment: Nega tive results do not preclude SARS-CoV-2 infection and should not be used as the sole basis for patient management decisions. Negative results must be combined with clinical observations, patient history, and epidemiological information. There is a risk of false negative values resulting from improperly collected, transported, or handled specimens. There is a risk of false negative values due to the presence of sequence variants in the pathogen targets of the assay, procedural errors, amplification inhibitors in specimens, or inadequate numbers of organisms for amplification. [employer]WIS SARS-CoV-2 Assay is a Real-Time reverse-transcriptase polymerase chain reaction (RT-PCR) based qualitative in vitro diagnostic test intended for the qualitative detection of nucleic acid from the SARS-CoV-2 in nasopharyngeal swab specimens collected from individuals suspected of COVID-19 by their healthcare provider. Testing is limited to laboratories certified under the Clinical Laboratory Improvement Amendments of 1988 (CLIA), 42 U.S.C. ?263a, to perform moderate and high complexity tests. COVID-19 Int Performed By: #### C HANS BUTLER, JUAQUIN MARCUS, KAITLIN, GFR #### [address] [address] FLURSVon 05-06-2022 Flu A PCR (AO) Negative Normal Negative [facility] ([place] Comment on above: Result Comment: Posi tive Results: Positive Flu A/B or RSV for by PCR. Positive test results do not rule out bacterial infection or co-infection with other pathogens. Test results should be interpreted in conjunction with other laboratory and clinical data. Negative Results: Negative for by PCR. Negative test results do not preclude influenza virus or RSV infection and should not be used as the sole basis for diagnosis, treatment, or other management decisions. There is a risk of false negative RSV results when at low concentration and in the presence of co-infection with high concentration of influenza A. Invalid Results: An Invalid result (INV) was obtained. The test was repeated with similar results. REPEAT COLLECTION AND TESTING IS RECOMMENDED. [employer] Flu A/B & RSV Assay is a real-time polymerase chain reaction (PCR) based qualitative in vitro diagnostic test for the direct detection and differentiation of influenza A virus, influenza B virus, and respiratory syncytial virus (RSV) nucleic acid in nasopharyngeal swab (CRICKET [employer]ACH) specimens from patients with signs and symptoms of respiratory infection in conjunction with clinical and laboratory findings. The test is intended for use as an aid in the differential diagnosis of influenza A virus, influenza B virus, and RSV in humans and is not intended to detect influenza C. Performed By: #### C HANS BUTLER, JUAQUIN MARCUS, CMP, GFR #### [address] [address] Flu B PCR (AO) Negative Normal Negative [facility] ([place]) Comment on above: Result Comment: Posi tive Results: Positive Flu A/B or RSV for by PCR. Positive test results do not rule out bacterial infection or co-infection with other pathogens. Test results should be interpreted in conjunction with other laboratory and clinical data. Negative Results: Negative for by PCR. Negative test results do not preclude influenza virus or RSV infection and should not be used as the sole basis for diagnosis, treatment, or other management decisions. There is a risk of false negative RSV results when at low concentration and in the presence of co-infection with high concentration of influenza A. Invalid Results: An Invalid result (INV) was obtained. The test was repeated with similar results. REPEAT COLLECTION AND TESTING IS RECOMMENDED. [employer] Flu A/B & RSV Assay is a real-time polymerase chain reaction (PCR) based qualitative in vitro diagnostic test for the direct detection and differentiation of influenza A virus, influenza B virus, and respiratory syncytial virus (RSV) nucleic acid in nasopharyngeal swab (CRICKET COACH) specimens from patients with signs and symptoms of respiratory infection in conjunction with clinical and laboratory findings. The test is intended for use as an aid in the differential diagnosis of influenza A virus, influenza B virus, and RSV in humans and is not intended to detect influenza C. Performed By: #### C HANS BUTLER, AMRIT, JUAQUIN, CMP, GFR #### [place] [address] [place], [place] [address] RSV PCR (AO) Negative Normal Negative [facility] ([place] Comment on above: Result Comment: Posi tive Results: Positive Flu A/B or RSV for by PCR. Positive test results do not rule out bacterial infection or co-infection with other pathogens. Test results should be interpreted in conjunction with other laboratory and clinical data. Negative Results: Negative for by PCR. Negative test results do not preclude influenza virus or RSV infection and should not be used as the sole basis for diagnosis, treatment, or other management decisions. There is a risk of false negative RSV results when at low concentration and in the presence of co-infection with high concentration of influenza A. Invalid Results: An Invalid result (INV) was obtained. The test was repeated with similar results. REPEAT COLLECTION AND TESTING IS RECOMMENDED. The Lewis Flu A/B & RSV Assay is a real-time polymerase chain reaction (PCR) based qualitative in vitro diagnostic test for the direct detection and differentiation of influenza A virus, influenza B virus, and respiratory syncytial virus (RSV) nucleic acid in nasopharyngeal swab (CRICKET COACH) specimens from patients with signs and symptoms of respiratory infection in conjunction with clinical and laboratory findings. The test is intended for use as an aid in the differential diagnosis of influenza A virus, influenza B virus, and RSV in humans and is not intended to detect influenza C. Performed By: #### C MD CARRIEW, ANEU, ADIFF, CMP, GFR #### [place] [id number] [place] [id number] LABORATORYOrdered By: Moon Villa on 05-05-2022 FLUAV RNA YURIY+probe Ql (Upper resp) Negative (05/05/22 9:02 PM) Invalid Interpretation Code Negative AO Auto Urine SS FLUBV RNA YURIY+probe Ql (Upper resp) Negative (05/05/22 9:02 PM) Invalid Interpretation Code Negative AO Auto Urine SS RSV RNA YURIY+probe Ql (Upper resp) Negative (05/05/22 9:02 PM) Invalid Interpretation Code Negative AO Auto Urine SS SARS-CoV-2 (COVID-19) RNA YURIY+probe Ql (Resp) Negative results do not preclude SARS-CoV-2 infection and should not be used as the sole basis for patient management decisions. Negative results must be combined with clinical observations, patient history, and epidemiological information.There is a risk of false negative values resulting from improperly collected, transported, or handled specimens.There is a risk of false negative values due to the presence of sequence variants in the pathogen targets of the assay, procedural errors, amplification inhibitors in specimens, or inadequate numbers of organisms for amplification.LEWIS SARS-CoV-2 Assay is a Real-Time reverse-transcripta se polymerase chain reaction (RT-PCR) based qualitative in vitro diagnostic test intended for the qualitative detection of nucleic acid from the SARS-CoV-2 in nasopharyngeal swab specimens collected from individuals suspected of COVID-19 by their healthcare provider. Testing is limited to laboratories certified under the Clinical Laboratory Improvement Amendments of 1988 (CLIA), 42 U.S.C. 263a, to perform moderate and high complexity tests. Invalid Interpretation Code AO Auto Urine SS XR HIP RIGHT W/PELVIS 4 VIEW Son 04-24-2022 XR HIP RIGHT W/PELVIS 4 VIEWS ORIGINAL EXAMINATION: TWO XRAY VIEWS OF THE PELVIS AND TWO XRAY VIEWS RIGHT HIP 04/24/2022 12:13 pm COMPARISON: Lumbar spine radiographs of the same date. CT of the abdomen and pelvis dated 10/05/2020. HISTORY: ORDERING SYSTEM PROVIDED HISTORY: Reason for Exam: pain FINDINGS: There is normal radiographic bone mineral density. The sacroiliac joints are symmetric bilaterally with subchondral sclerosis seen bilaterally. The pubic symphysis is intact with subchondral sclerosis noted. The hip joints have a symmetric appearance without evidence of fracture or dislocation. Mild bilateral hip joint space loss and subchondral sclerosis is seen. Mild greater trochanter enthesophyte is noted. There is no appreciable soft tissue swelling. IMPRESSION: No acute fracture or dislocation. Scattered mild osteoarthritic changes of the bilateral hips, pubic symphysis, and SI joints. Consider sacroiliitis. Interpreted by: Carlos Meyer MD Preliminary Report By: Carlos Meyer MD Electronically signed By Carlos Meyer MD Dictated Date: 04/24/2022 12:35:02 PM Prelim Date: 04/24/2022 12:37:27 PM Sign Date: 04/24/2022 12:37:27 PM Ordering Provider: [facility]) XR SPINE LUMBOSACRAL 2 OR 3 VIEWSon 04-24-2022 XR SPINE LUMBOSACRAL 2 OR 3 VIEWS ORIGINAL EXAMINATION: 3 XRAY VIEWS OF THE LUMBAR SPINE 04/24/2022 12:12 pm COMPARISON: CT of the abdomen and pelvis dated 10/05/2020. HISTORY: ORDERING SYSTEM PROVIDED HISTORY: Reason for Exam: pain; trauma patient Fall 1 week ago. Complaints of right hip pain. FINDINGS: There are five lumbar type vertebral bodies. The vertebral body heights, alignment and interspacing appear to be normal. There are no fractures or subluxations identified. No evidence of spondylolysis or spondylolisthesis is seen. Mild facet arthropathy is seen at the levels of L4-L5 and L5-S1. The sacroiliac joints have a symmetrical appearance. IMPRESSION: No evidence of acute fractures or subluxations. Mild lower lumbar facet arthropathy. Interpreted by: Carlos Meyer MD Preliminary Report By: Carlos Meyer MD Electronically signed By Carlos Meyer MD Dictated Date: 04/24/2022 12:33:19 PM Prelim Date: 04/24/2022 12:34:59 PM Sign Date: 04/24/2022 12:34:59 PM Ordering Provider: ALESSIA [facility] [place] XR Chest PA and Lateralon IMPRESSION: Stable chest. No acute cardiopulmonary process. Thread Inspector: ASIA Transcribe Date/Time: Jun 02 2021 5:27P Dictated by : LUCINA JHA MD This examination was interpreted and the report reviewed and electronically signed by: LUCINA JHA MD on Jun 02 2021 5:28PM [facility] DIVISION OF RADIOLOGY * * *Final Report* * * DATE OF EXAM: Jun 02 2021 5:18PM WOX [id number] - XR CHEST 2V FRONTAL/LAT / PROCEDURE REASON: multiple diagnoses * * * * Physician Interpretation * * * * EXAMINATION: CHEST RADIOGRAPH (2 VIEW FRONTAL & LATERAL) CLINICAL HISTORY: COVID-19. SOB (shortness of breath) MQ: XC2_6 EXAM DATE/TIME: 06/02/2021 5:18 PM COMPARISON: Comparison is made to prior 2 view chest dated 07/16/2005 RESULT: Lines, tubes, and devices: None. Lungs and pleura: There is no focal consolidation or acute pleural process/fluid. There is no vascular redistribution to suggest pulmonary edema. Cardiomediastinal silhouette: The cardiac, mediastinal and hilar shadows are unchanged and remain within normal limits. Other: The bony structures are intact DIVISION OF RADIOLOGY Provider, [facility] - 06/02/2021 * * *Final Report* * * DATE OF EXAM: Jun 02 2021 5:18PM WOX [id number] - XR CHEST 2V FRONTAL/LAT / PROCEDURE REASON: multiple diagnoses * * * * Physician Interpretation * * * * EXAMINATION: CHEST RADIOGRAPH (2 VIEW FRONTAL & LATERAL) CLINICAL HISTORY: COVID-19. SOB (shortness of breath) MQ: XC2_6 EXAM DATE/TIME: 06/02/2021 5:18 PM COMPARISON: Comparison is made to prior 2 view chest dated 07/16/2005 RESULT: Lines, tubes, and devices: None. Lungs and pleura: There is no focal consolidation or acute pleural process/fluid. There is no vascular redistribution to suggest pulmonary edema. Cardiomediastinal silhouette: The cardiac, mediastinal and hilar shadows are unchanged and remain within normal limits. Other: The bony structures are intact IMPRESSION IMPRESSION: Stable chest. No acute cardiopulmonary process. Thread Inspector: ASIA Transcribe Date/Time: Jun 02 2021 5:27P Dictated by : LUCINA JHA MD This examination was interpreted and the report reviewed and electronically signed by: LUCINA JHA MD on Jun 02 2021 5:28PM EST [facility] Radiology Study observation (narrative) Karina sloan [facility] XR Chest PA and LateralOrder ed By: [facility] Provider on 06-02-2021 [facility] Coronavirus 2019on 0 COVID 19 Result ENGINE HOSTLER Normal Negative for COVID19 (SARS CoV2) by PCR. [facility] Reference Lab Comment on above: Result Comment: Nega tive for This test was developed and its performance characteristics determined by [facility] Pathology and Laboratory Medicine [place]. This test has been authorized by FDA under an Emergency Use Authorization (EUA). This test has been validated in accordance with the FDA's Guidance Document Policy for Diagnostics Testing in Laboratories Certified to Perform High Complexity Testing under CLIA prior to Emergency use Authorization for Coronavirus Disease 2019 during the Public Health Emergency issued on July 14, 2019. COVID19 (SARS This test was developed and its performance characteristics determined by [facility] Pathology and Laboratory [facility] [place]. This test has been authorized by FDA under an Emergency Use Authorization (EUA). This test has been validated in accordance with the FDA's Guidance Document Policy for Diagnostics Testing in Laboratories Certified to Perform High Complexity Testing under CLIA prior to Emergency use Authorization for Coronavirus Disease 2019 during the Public Health Emergency issued on July 14, 2019. CoV2) by PCR. This test was developed and its performance characteristics determined by [facility] Pathology and Laboratory [facility] [place]. This test has been authorized by FDA under an Emergency Use Authorization (EUA). This test has been validated in accordance with the FDA's Guidance Document Policy for Diagnostics Testing in Laboratories Certified to Perform High Complexity Testing under CLIA prior to Emergency use Authorization for Coronavirus Disease 2019 during the Public Health Emergency issued on July 14, 2019. Coronavirus 2019on 0 COVID 19 Source ENGINE HOSTLER Normal [facility] Reference Lab Comment on above: Result Comment: Naso pharyngeal Corrected on 04/29 AT 0612: Previously reported as U Swab Corrected on 04/29 AT 0612: Previously reported as U COVID PCR, SCREENING CONGREG ATEon 11-08-2019 CORONAVIRUS 2019,PCR NOT DETECTED Normal Not Detected [facility] Comment on above: Result Comment: This assay is designed to detect the N, ORF1ab and/or S genes of SARS-CoV-2 via nucleic acid amplification. A Negative (NOT DETECTED) result does not preclude 2019-nCoV infection since the adequacy of sample collection and/or low viral burden may result in presence of viral nucleic acids below the clinical sensitivity of this test method. Negative (NOT DETECTED) result should not be used as the sole basis for treatment or other patient management decisions. Rather negative results should be combined with clinical observations, patient history, and epidemiological information to make patient management decisions. Fact sheet for providers: https://www.fda.gov/media/891795/download Fact sheet for patients: https://www.fda.gov/media/961604/download This test has received FDA Emergency Use Authorization (EUA) and has been verified by [facility] ([facility]). This test is only authorized for the duration of time that circumstances exist to justify the authorization of the emergency use of in vitro diagnostic tests for the detection of SARS-CoV-2 virus and/or diagnosis of COVID-19 infection under section 564(b)(1) of the Act, 21 U.S.C. 360bbb-3(b)(1), unless the authorization is terminated or revoked sooner. [facility] ([facility]) is certified under CLIA-88 as qualified to perform high complexity testing. This tests analytical performance characteristics have been determined by [facility]. Testing is performed at [facility] is located at [address] [place] [address] (CLIA License #[id number], CAP #[id number]). Performed By: #### C VCLA #### [facility] [address] [place] [address] COVID PCR, SCREENING CONGREG ATEon 11-07-2019 Lab Specimen Source Nasal, Nasopharyngeal Normal [facility] Comment on above: Performed By: #### C VCLA #### [facility] [address] [place] [address] Vital Signs Date Time Vital Sign Value Performing Clinician Facility 03-24-2023 10:49-0500 Body temperature 97.88 [degF] ROSY PHAN APRN-ACADEMIC INTERN [facility] 03-24-2023 10:49-0500 Diastolic Blood Pressure Non-Invasive 64 1 ROSY KAPPER CONSERVATION AGENT-ACADEMIC INTERN [facility] 03-24-2023 10:49-0500 Heart rate 74 /min ROSY KAPPER CONSERVATION AGENT-ACADEMIC INTERN [facility] 03-24-2023 10:49-0500 Reason For Taking VItal Signs ROSY KAPPER CONSERVATION AGENT-ACADEMIC INTERN [facility] 03-24-2023 10:49-0500 Respiratory rate 20 /min ROSY KAPPER CONSERVATION AGENT-ACADEMIC INTERN [facility] 03-24-2023 10:49-0500 Systolic Blood Pressure Non-Invasive 112 1 ROSY KAPPER CONSERVATION AGENT-ACADEMIC INTERN [facility] 03-24-2023 06:53-0500 Body temperature 97.88 [degF] ROSY KAPPER CONSERVATION AGENT-ACADEMIC INTERN [facility] 03-24-2023 06:53-0500 Diastolic Blood Pressure Non-Invasive 108 1 ROSY KAPPER CONSERVATION AGENT-ACADEMIC INTERN [facility] 03-24-2023 06:53-0500 Heart rate 79 /min ROSY KAPPER CONSERVATION AGENT-ACADEMIC INTERN [facility] 03-24-2023 06:53-0500 Respiratory rate 20 /min ROSY KAPPER CONSERVATION AGENT-ACADEMIC INTERN [facility] 03-24-2023 06:53-0500 Systolic Blood Pressure Non-Invasive 146 1 ROSY KAPPER CONSERVATION AGENT-ACADEMIC INTERN [facility] 03-24-2023 03:33-0500 Body temperature 97.7 [degF] ROSY KAPPER CONSERVATION AGENT-ACADEMIC INTERN [facility] 03-24-2023 03:33-0500 Diastolic Blood Pressure Non-Invasive 65 1 ROSY KAPPER CONSERVATION AGENT-ACADEMIC INTERN [facility] 03-24-2023 03:33-0500 Heart rate 76 /min ROSY KAPPER CONSERVATION AGENT-ACADEMIC INTERN [facility] 03-24-2023 03:33-0500 Reason For Taking VItal Signs ROSY KAPPER CONSERVATION AGENT-ACADEMIC INTERN [facility] 03-24-2023 03:33-0500 Respiratory rate 18 /min ROSY KAPPER CONSERVATION AGENT-ACADEMIC INTERN [facility] 03-24-2023 03:33-0500 Systolic Blood Pressure Non-Invasive 111 1 ROSY KAPPER CONSERVATION AGENT-ACADEMIC INTERN [facility] 03-24-2023 02:27-0500 Heart rate 88 /min ROSY KAPPER CONSERVATION AGENT-ACADEMIC INTERN [facility] 03-23-2023 23:16-0500 Heart rate 80 /min ROSY KAPPER CONSERVATION AGENT-ACADEMIC INTERN [facility] 03-23-2023 23:16-0500 Reason For Taking VItal Signs ROSY KAPPER CONSERVATION AGENT-ACADEMIC INTERN [facility] 03-23-2023 17:48-0500 Heart rate 84 /min ROSY KAPPER CONSERVATION AGENT-ACADEMIC INTERN [facility] 03-23-2023 14:41-0500 Heart rate 82 /min ROSY KAPPER CONSERVATION AGENT-ACADEMIC INTERN [facility] 03-23-2023 11:49-0500 Heart rate 76 /min ROSY KAPPER CONSERVATION AGENT-ACADEMIC INTERN [facility] 03-22-2023 16:24-0500 Body weight 109.9 kg ROSY KAPPER CONSERVATION AGENT-ACADEMIC INTERN [facility] 03-22-2023 16:11-0500 Body height 170.2 cm ROSY KAPPER CONSERVATION AGENT-ACADEMIC INTERN [facility] 03-22-2023 [id number] Body weight 108.9 kg ROSY KAPPER CONSERVATION AGENT-ACADEMIC INTERN [facility] 03-22-2023 [id number]:110500 Body weight 37.59 kg/m2 ROSY KAPPER CONSERVATION AGENT-ACADEMIC INTERN [facility] 03-22-2023 15:03-0500 Heart rate 82 /min ROSY KAPPER CONSERVATION AGENT-ACADEMIC INTERN [facility] 03-02-2023 00:13-0400 Diastolic Blood Pressure Non-Invasive 86 1 BRITNEY MCLEOD MD [facility] 03-02-2023 00:13-0400 Heart rate 76 /min BRITNEY MCLEOD MD [facility] 03-02-2023 00:13-0400 Respiratory rate 20 /min BRITNEY MCLEOD MD [facility] 03-02-2023 00:13-0400 Systolic Blood Pressure Non-Invasive 134 1 BRITNEY MCLEOD MD [facility] 03-01-2023 22:44-0400 Diastolic Blood Pressure Non-Invasive 76 1 BRITNEY MCLEOD MD [facility] 03-01-2023 22:44-0400 Heart rate 80 /min BRITNEY MCLEOD MD [facility] 03-01-2023 22:44-0400 Respiratory rate 18 /min BRITNEY MCLEOD MD [facility] 03-01-2023 22:44-0400 Systolic Blood Pressure Non-Invasive 124 1 BRITNEY MCLEOD MD [facility] 03-01-2023 21:17-0400 Diastolic Blood Pressure Non-Invasive 74 1 BRITNEY MCLEOD MD [facility] 03-01-2023 21:17-0400 Heart rate 89 /min BRITNEY MCLEOD MD [facility] 03-01-2023 21:17-0400 Respiratory rate 18 /min BRITNEY MCLEOD MD [facility] 03-01-2023 21:17-0400 Systolic Blood Pressure Non-Invasive 115 1 BRITNEY MCLEOD MD [facility] 03-01-2023 19:18-0400 Body temperature 97.88 [degF] BRITNEY MCLEOD MD [facility] 03-01-2023 19:18-0400 Body weight 109.1 kg BRITNEY MCLEOD MD [facility] 08-25-2022 15:47-0400 Diastolic Blood Pressure Non-Invasive 79 1 DEL CHARLEYT DO [facility] 08-25-2022 15:47-0400 Heart rate 81 /min DEL FROMMELT DO [facility] 08-25-2022 15:47-0400 Respiratory rate 16 /min DEL FROMMELT DO [facility] 08-25-2022 15:47-0400 Systolic Blood Pressure Non-Invasive 144 1 DEL FROMMELT DO [facility] 08-25-2022 13:45-0400 Body temperature 98.78 [degF] DEL ACOSTA DO [facility] 08-25-2022 13:45-0400 Body weight 110.8 kg DEL ACOSTA DO [facility] 08-25-2022 13:45-0400 Diastolic Blood Pressure Non-Invasive 97 1 DEL ACOSTA DO [facility] 08-25-2022 13:45-0400 Heart rate 99 /min DEL ACOSTA DO [facility] 08-25-2022 13:45-0400 Respiratory rate 18 /min DEL ACOSTA DO [facility] 08-25-2022 13:45-0400 Systolic Blood Pressure Non-Invasive 135 1 DEL ACOSTA DO [facility] 05-28-2022 09:49-0500 Body temperature 97.8 [degF] Dr. Geoffrey White Work Phone: [facility] 05-28-2022 09:49-0500 Diastolic blood pressure 92 mm[Hg] Dr. Geoffrey White Work Phone: [facility] 05-28-2022 09:49-0500 Heart rate 92 /min Dr. Geoffrey White Work Phone: [facility] 05-28-2022 09:49-0500 Respiratory rate 18 /min Dr. Geoffrey White Work Phone: [facility] 05-28-2022 09:49-0500 SaO2% (BldA) [Mass fraction] 97 % Dr. Geoffrey White Work Phone: [facility] 05-28-2022 09:49-0500 Systolic blood pressure 136 mm[Hg] Dr. Geoffrey White Work Phone: [facility] 05-12-2022 11:35-0500 Body weight 108.86 kg Savannah Valverde APRN.ACADEMIC INTERN Work Phone: [facility] 05-12-2022 11:35-0500 Diastolic blood pressure 78 mm[Hg] Savannah Valverde APRN.ACADEMIC INTERN Work Phone: [facility] 05-12-2022 11:35-0500 Systolic blood pressure 118 mm[Hg] Savannah Valverde APRN.ACADEMIC INTERN Work Phone: [facility] 05-05-2022 20:48-0500 Blood Pressure Cuff Size DR KENDAL HERMAN DO [facility] 05-05-2022 20:48-[address] KENDAL HERMAN DO [facility] 05-05-2022 20:48-[address] KENDAL HERMAN DO [facility] 05-05-2022 20:48-0500 Body height 170.[address] KENDAL HERMAN DO [facility] 05-05-2022 20:48-0500 Body temperature 98.06 [degF] DR KENDAL HERMAN DO [facility] 05-05-2022 20:48-0500 Body weight 109.[address] KENDAL HERMAN DO [facility] 05-05-2022 20:48-0500 Diastolic Blood Pressure Non-Invasive [address] KENDAL HERMAN DO [facility] 05-05-2022 20:48-0500 Heart rate 115 /min DR KENDAL HERMAN DO [facility] 05-05-2022 20:48-0500 Respiratory rate 20 /min DR KENDAL HERMAN DO [facility] 05-05-2022 20:48-0500 Systolic Blood Pressure Non-Invasive [address] KENDAL HERMAN DO [facility] 04-24-2022 11:34-0500 Body temperature 98.6 [degF] ALESSIA KAUR MD [facility] 04-24-2022 11:34-0500 Diastolic Blood Pressure Non-Invasive 84 1 ALESSIA KAUR MD [facility] 04-24-2022 11:34-0500 Heart rate 98 /min ALESSIA KAUR MD [facility] 04-24-2022 11:34-0500 Respiratory rate 18 /min ALESSIA KAUR MD [facility] 04-24-2022 11:34-0500 Systolic Blood Pressure Non-Invasive 132 1 ALESSIA KAUR MD [facility] 11-10-2021 10:44-0400 Body height 170.2 cm Talia Older CONSERVATION AGENT.ACADEMIC INTERN Work Phone: [facility] 11-10-2021 10:44-0400 Body weight 109.77 kg Talia Older CONSERVATION AGENT.ACADEMIC INTERN Work Phone: [facility] 09-10-2021 09:56-0400 Body weight 109.32 kg Savannah Valverde APRN.ACADEMIC INTERN Work Phone: [facility] 09-10-2021 09:56-0400 Diastolic blood pressure 82 mm[Hg] Savannah Valverde APRN.ACADEMIC INTERN Work Phone: [facility] 09-10-2021 09:56-0400 Systolic blood pressure 132 mm[Hg] Savannah Valverde APRN.ACADEMIC INTERN Work Phone: [facility] 07-16-2021 11:36-0500 Body temperature 98.6 [degF] Dr. Geoffrey White Work Phone: [facility] Work Phone: 07-16-2021 11:36-0500 Diastolic blood pressure 80 mm[Hg] Dr. Geoffrey White Work Phone: [facility] Work Phone: 07-16-2021 11:36-0500 Heart rate 83 /min Dr. Geoffrey White Work Phone: [facility] Work Phone: 07-16-2021 11:36-0500 Respiratory rate 18 /min Dr. Geoffrey White Work Phone: [facility] Work Phone: 07-16-2021 11:36-0500 SaO2% (BldA) [Mass fraction] 97 % Dr. Geoffrey White Work Phone: [facility] Work Phone: 07-16-2021 11:36-0500 Systolic blood pressure 130 mm[Hg] Dr. Geoffrey White Work Phone: [facility] Work Phone: 05-22-2021 20:12-0500 Body temperature 98.78 [degF] TRAV CORLEY MD [facility] 05-22-2021 20:12-0500 Diastolic blood pressure 95 mm[Hg] TRAV CORLEY MD [facility] 05-22-2021 20:12-0500 Heart rate 102 /min TRAV CORLEY MD [facility] 05-22-2021 20:12-0500 Respiratory rate 18 /min TRAV CORLEY MD [facility] 05-22-2021 20:12-0500 Systolic blood pressure 157 mm[Hg] TRAV CORLEY MD [facility] Encounters Encounter Date Encounter Type Care Provider Facility Start: 05-03-2024 End: 05-04-2024 Emergency department patient visit Gideon Alford NP Facility:[facility] Start: 03-22-2023 End: 03-24-2023 Evaluation and management of inpatient ROSY M EMILIE CONSERVATION AGENT-ACADEMIC INTERN Facility:[facility] Start: 03-22-2023 End: 03-24-2023 Evaluation and management of inpatient ROSY Booth EMILIE CONSERVATION AGENT-ACADEMIC INTERN [facility] Start: 03-01-2023 End: 03-02-2023 Emergency department patient visit BRITNEY MCLEOD MD Facility:[facility] Start: 03-01-2023 End: 03-02-2023 Emergency department patient visit BRITNEY MCLEOD MD [facility] Start: 09-11-2022 Telephone encounter Lupe akins CONSERVATION AGENT.ACADEMIC INTERN Work Phone: Endocrinology Comment on above: Results Start: 09-08-2022 End: 09-09-2022 ambulatory LUPE C CIOCE Facility:[facility] Start: 09-08-2022 End: 09-09-2022 ambulatory LUPE C CIOCE Facility:[facility] Start: 09-08-2022 End: 09-08-2022 Patient encounter procedure Lupe Raman Cioce CONSERVATION AGENT.ACADEMIC INTERN Work Phone: Endocrinology Comment on above: Poorly controlled ty pe 2 diabetes mellitus (HCC) (Primary Dx) Start: 08-25-2022 End: 08-25-2022 [facility] Start: 08-25-2022 End: 08-25-2022 Emergency department patient visit [facility] Start: 06-02-2022 ambulatory DOCTOR ON [facility] Start: 05-28-2022 End: 05-28-[address] Geoffrey White Work Phone: [facility] Work Phone: Start: 05-28-2022 End: 05-28-[address] Geoffrey White Work Phone: [facility]Laboratory, Specimen Start: 05-28-2022 End: 05-28-[address] Geoffrey White Work Phone: [facility] Start: 05-12-2022 End: 05-12-2022 ambulatory GEOFFREY WHITE Facility:[facility] Start: 05-12-2022 End: 05-12-2022 Patient encounter procedure Savannah Valverde APRN.CNP Work Phone: OB/Gynecology Comment on above: Vaginal discharge (P rimary Dx); Folliculitis; Screen for STD (sexually transmitted disease); Type 2 diabetes mellitus with other specified complication, without long-term current use of insulin (HCC); Class 2 severe obesity with serious comorbidity and body mass index (BMI) of 37.0 to 37.9 in adult, unspecified obesity type (HCC) Start: 05-05-2022 End: 05-05-2022 Emergency department patient visit DR KENDAL HERMAN DO Facility:B Start: 05-05-2022 End: 05-05-2022 Emergency department patient visit DR KENDAL HERMAN DO [facility] Start: 04-24-2022 End: 04-24-2022 Emergency department patient visit ALESSIA KAUR MD Facility:B Start: 04-24-2022 End: 04-24-2022 Emergency department patient visit ALESSIA KAUR MD [facility] Start: 03-19-2022 End: 03-19-2022 ambulatory Sue Monrealpaster PhD Work Phone: Endocrinology [facility] Comment on above: NO SHOW (Primary Dx) Start: 03-19-2022 End: 03-19-2022 Telemedicine consultation with patient Sue Monrealcoleman PhD Work Phone: [facility] Start: 11-10-2021 End: 11-10-2021 ambulatory Talia Older CONSERVATION AGENT.ACADEMIC INTERN Work Phone: Internal Medicine [place] Comment on above: Obesity, Class II, B NH 35-39.9 (Primary Dx); Type 2 diabetes mellitus without complication, without long-term current use of insulin (HCC) Start: 11-10-2021 End: 11-10-2021 Telemedicine consultation with patient Talia Older CONSERVATION AGENT.ACADEMIC INTERN Work Phone: [facility] Start: 10-26-2021 End: 10-26-2021 Patient encounter procedure Deedee Cotton PA-C Work Phone: Orthopaedics Comment on above: Medial epicondylitis of left elbow (Primary Dx); Family history of rheumatism Start: 09-10-2021 End: 09-10-2021 Patient encounter procedure Savannah Valverde APRN.ACADEMIC INTERN Work Phone: OB/Gynecology Comment on above: Vaginal discharge (P rimary Dx); Vaginal odor; Screen for STD (sexually transmitted disease); Menorrhagia with regular cycle; Dysmenorrhea Start: 07-16-2021 End: 07-16-[address] Geoffrey White Work Phone: [facility] Start: 06-02-2021 End: 06-02-2021 Subsequent hospital visit by physician Xr [facility] Work Phone: Radiology Comment on above: COVID-19 [U07.1] Start: 05-22-2021 End: 05-22-2021 Emergency department patient visit TRAV CORLEY MD [facility] Procedures Date Procedure Procedure Detail Performing Clinician Start: 05-12-2022 BACTERIAL VAGINOSIS AMPLIFICATION Savannah Valverde CONSERVATION AGENT.ACADEMIC INTERN Work Phone: Start: 05-12-2022 Iadna chlamydia trac homatis amplified probe tq Savannah Valverde CONSERVATION AGENT.ACADEMIC INTERN Work Phone: Start: 07-16-2021 Plain chest X-ray Dr. Raman White Work Phone: Start: 06-02-2021 Radiologic exam ches t 2 views Belgicareed Dangelo CONSERVATION AGENT.ACADEMIC INTERN Work Phone: Start: 02-04-2021 Adult depression scr eening assessment Savannah Valverde CONSERVATION AGENT.ACADEMIC INTERN Work Phone: Deliveries by cinthya mccann (finding) TRAV CORLEY MD Comment on above: x 3 H/O: tubal ligation ROSY MARIE CONSERVATION AGENT-ACADEMIC INTERN Urine culture Dr. Geoffrey enriquez Work Phone: Plan of Treatment Date Care Activity Detail Author Start: 03-03-2026 HPV TESTING HPV TESTING [facility] Start: 03-03-2026 PAP TESTING PAP TESTING [facility] Start: 03-03-2026 Screening for malign ant neoplasm of cervix Cervical Cancer Screening [facility] Start: 01-15-2024 Covid-19 Vaccine ( season) Covid-19 Vaccine ( season) [facility] Start: 01-15-2024 Influenza vaccination Influenza Vacc ine (#1) [facility] Start: 09-09-2023 Hepatitis B screening URINE ALBUMIN:CREATININE RATIO [facility] Start: 09-09-2023 Hepatitis B surface antibody level LDL CHOLESTEROL [facility] Start: 02-13-2023 End: 04-15-2023 ALBUMIN/CREAT RATIO RND UR ALBUMIN/CREAT RATIO RND UR Lab Routine Poorly controlled type 2 diabetes mellitus (HCC) Expected: 02/13/2023, Expires: 04/15/2023 [facility] Work Phone: Comment on above: Expected: 02/13/2023 , Expires: 04/15/2023 Start: 02-13-2023 End: 04-15-2023 Comprehensive metabolic 2000 panel - Serum or Plasma COMP METABOLIC PANEL Lab Routine Poorly controlled type 2 diabetes mellitus (HCC) Expected: 02/13/2023, Expires: 04/15/2023 [facility] Work Phone: Comment on above: Expected: 02/13/2023 , Expires: 04/15/2023 Start: 02-13-2023 End: 04-15-2023 Hemoglobin A1c in Blood HGB A1C Lab Routine Poorly controlled type 2 diabetes mellitus (HCC) Expected: 02/13/2023, Expires: 04/15/2023 [facility] Work Phone: Comment on above: Expected: 02/13/2023 , Expires: 04/15/2023 Start: 02-13-2023 End: 04-15-2023 LIPID PANEL, NONFASTING LIPID PANEL, NONFASTING Lab Routine Poorly controlled type 2 diabetes mellitus (HCC) Expected: 02/13/2023, Expires: 04/15/2023 [facility] Work Phone: Comment on above: Expected: 02/13/2023 , Expires: 04/15/2023 Start: 01-14-2023 Influenza vaccination INFLUENZ A (Season Ended) [facility] Start: 12-08-2022 Hemoglobin A1c measurement HbA1C [facility] Start: 12-08-2022 Hemoglobin A1c/Hemoglobin.total in Blood HBA1C [facility] Start: 11-10-2022 ANNUAL PCP TEAM MEMORIAL COUNSELOR JEANNE DISEASE VISIT ANNUAL PCP TEAM CHRONIC DISEASE VISIT [facility] Start: 09-08-2022 End: 11-08-2022 25-hydroxyvitamin D3 [Mass/volume] in Serum or Plasma [facility] Work Phone: Comment on above: Expected: 09/08/2022 , Expires: 11/08/2022 Start: 09-08-2022 End: 11-08-2022 ALBUMIN/CREAT RATIO RND UR [facility] Work Phone: Comment on above: Expected: 09/08/2022 , Expires: 11/08/2022 Start: 09-08-2022 End: 11-08-2022 Glutamate decarboxylase 65 Ab [Units/volume] in Serum [facility] Work Phone: Comment on above: Expected: 09/08/2022 , Expires: 11/08/2022 Start: 09-08-2022 End: 11-08-2022 Pancreatic islet cell Ab [Titer] in Serum [facility] Work Phone: Comment on above: Expected: 09/08/2022 , Expires: 11/08/2022 Start: 09-08-2022 End: 11-08-2022 THYROID PEROXIDASE ANTIBODY BLOOD [facility] Work Phone: Comment on above: Expected: 09/08/2022 , Expires: 11/08/2022 Start: 05-16-2022 DEPRESSION ASSESSMENT DEPRESSION ASS ESSMENT [facility] Start: 03-18-2022 ANNUAL PCP TEAM MEMORIAL COUNSELOR JEANNE DISEASE VISIT ANNUAL PCP TEAM CHRONIC DISEASE VISIT [facility] Start: 03-18-2022 COVID-19 VACCINE (#1) COVID-19 VACCI NE (#1) [facility] Comment on above: Postponed from 11/19 (Declined at this time) Start: 03-18-2022 COVID-19 VACCINE (1) COVID-19 VACCIN E (1) [facility] Comment on above: Postponed from 11/19 (Declined at this time) Start: 03-18-2022 ONE PNEUMOVAX PRIOR TO AGE 65 ONE PNEUMOVAX PRIOR TO AGE 65 [facility] Comment on above: Postponed from 11/19 (Declined at this time) Start: 03-18-2022 PNEUMOCOCCAL (1 - PCV) PNEUMOCOCCAL (1 - PCV) [facility] Comment on above: Postponed from 11/19 (Declined at this time) Start: 03-18-2022 Urine microalbumin profile DTAP,TDAP,TD (1 - Tdap) [facility] Comment on above: Postponed from 11/19 (Declined at this time) Start: 02-04-2022 Adult depression screening assessment DEPRESSION SCREENING [facility] Start: 02-03-2022 Hepatitis B surface antibody level LDL CHOLESTEROL [facility] Start: 01-14-2022 Influenza vaccination C [facility] Start: 10-26-2021 End: 12-26-2021 C reactive protein [Mass/volume] in Serum or Plasma C-REACTIVE PROTEIN (CRP) Lab Routine Family history of rheumatism Expected: 10/26/2021, Expires: 12/26/2021 [facility] Work Phone: Comment on above: Expected: 10/26/2021 , Expires: 12/26/2021 Start: 10-26-2021 End: 12-26-2021 Erythrocyte sedimentation rate SED RATE WESTERGREN Lab Routine Family history of rheumatism Expected: 10/26/2021, Expires: 12/26/2021 [facility] Work Phone: Comment on above: Expected: 10/26/2021 , Expires: 12/26/2021 Start: 10-26-2021 End: 12-26-2021 Nuclear Ab [Presence] in Serum by Immunoassay LUCIANA BLOOD Lab Routine Family history of rheumatism Expected: 10/26/2021, Expires: 12/26/2021 [facility] Work Phone: Comment on above: Expected: 10/26/2021 , Expires: 12/26/2021 Start: 10-26-2021 End: 12-26-2021 Rheumatoid factor [Units/volume] in Serum or Plasma RHEUMATOID FACTOR BL Lab Routine Family history of rheumatism Expected: 10/26/2021, Expires: 12/26/2021 [facility] Work Phone: Comment on above: Expected: 10/26/2021 , Expires: 12/26/2021 Start: 08-03-2021 Hemoglobin A1c/Hemoglobin.total in Blood HBA1C [facility] Start: 05-16-2021 DEPRESSION ASSESSMENT DEPRESSION ASS ESSMENT [facility] Start: 07-10-2015 Glaucoma screening Dilated Retinal E xam [facility] Start: 07-10-2015 Hepatitis C antibody , confirmatory test DILATED RETINAL EXAM [facility] Start: 2005 HEPATITIS B (1 of 3 - Risk 3-dose series) HEPATITIS B (1 of 3 - Risk 3-dose series) [facility] Start: 2005 Hepatitis B Vaccine (1 of 3 - 19+ 3-dose series) Hepatitis B Vaccine (1 of 3 - 19+ 3-dose series) [facility] Start: 2005 Urine microalbumin profile [facility] Start: 2004 Anxiety Screening Anxiety Screening [facility] Start: 2004 Depression Screening Depression Scre ening [facility] Start: 2004 HEPATITIS C SCREENING HEPATITIS C [facility] Start: 2004 Hepatitis C screening Hepatitis C [facility] Start: 1996 3 comp foot exam completed DIABETIC FOOT EXAM [facility] Start: 1996 Diabetic foot examination Diabetic Foot Exam [facility] Start: 1996 Hepatitis B screening URINE ALBUMIN:CREATININE RATIO [facility] Start: 1992 PNEUMOCOCCAL (1 - PCV) PNEUMOCOCCAL (1 - PCV) [facility] Start: 1992 Pneumococcal vaccination Pneum ococcal Vaccine (1 of 2 - PCV) [facility] Start: 05-22-1987 COVID-19 VACCINE (#1) COVID-19 VACCI NE (#1) [facility] Start: 1986 HEPATITIS B (1 of 3 - 3-dose series) HEPATITIS B (1 of 3 - 3-dose series) [facility] Chlamydia trachomatis+Neisseria gonorrhoeae DNA [Presence] in Unspecified specimen by YURIY with probe detection GC/CHLAMYDIA DNA DET Lab Routine Screen for STD (sexually transmitted disease) Vaginal discharge Vaginal odor 09/10/2021 10:26 AM EDT [facility] Work Phone: Insertion intrauteri ne device iud INSERT INTRAUTERINE DEVICE Procedures Routine Menorrhagia with regular cycle Dysmenorrhea Ordered: 09/10/2021 [facility] Work Phone: Comment on above: Ordered: 09/10/2021 Microscopic observat ion [Identifier] in Vaginal fluid by Gram stain BACT/BAILEY VAG GRAM STAIN Microbiology Routine Vaginal odor Vaginal discharge 09/10/2021 10:26 AM EDT [facility] Work Phone: Trichomonas vaginali s Ag [Presence] in Genital specimen by Immunoassay TRICHOMONAS PREP/ANTIGEN Microbiology Routine Screen for STD (sexually transmitted disease) Vaginal discharge Vaginal odor 09/10/2021 10:26 AM EDT [facility] Work Phone: Urinalysis complete panel - Urine [facility] Immunizations Immunization Date Immunization Notes Care Provider Kenisha koroma 03-23-2023 influenza, injectabl e, quadrivalent, preservative free ROSY EMILIE CONSERVATION AGENT-ACADEMIC INTERN [facility] Payers Date Payer Category Payer Unknown [id number] 2023 Self-pay [id number] 2022 Unknown [id number] 2014 Medicaid [employer] [id number] 2014-Present [phone] [address] [place] [address] Medicaid [id number] 2014 Medicaid [id number] 2014 Unknown [id number] 1986 Unknown [id number] 1986 Unknown [id number] 1986 Unknown [id number] 1986 Unknown [id number] 1986 Unknown [id number] Unknown [id number] Social History Date Type Detail Facility Start: 08-27-2018 Heavy tobacco smoker (finding) [facility] Start: 1985 Sex Assigned At Female A [facility] Start: 07-16-2021 End: 05-28-2022 Tobacco smoking status NHIS Unknown if ever smoked [facility] Start: 08-18-2003 End: 03-03-2021 Tobacco smoking status GAIS Smokes tobacco daily [facility] Work Phone: Start: 08-18-2003 End: 08-17-2014 History of tobacco use Cigarette Smoker [facility] Work Phone: Start: 03-30-2019 End: 04-20-2020 Cigarettes smoked current (pack per day) - Reported 1 [facility] Start: 03-30-2019 End: 03-03-2021 Tobacco use and exposure Smokeless tobacco non-user [facility] Work Phone: Start: 06-02-2021 End: 09-10-2021 Alcohol intake Current drinker of alcohol (finding) [facility] Start: 02-04-2021 History SDOH Alcohol Frequency 3 [facility] Start: 02-04-2021 End: 03-18-2021 History SDOH Alcohol Std Drinks 2 [facility] Start: 03-30-2019 History SDOH Alcohol Comment socially [facility] Start: 02-04-2021 End: 03-18-2021 History SDOH Social Connections Mandaeism 1 [facility] Start: 02-04-2021 History SDOH Social Connections Living 7 [facility] Start: 02-04-2021 History SDOH Stress 5 [facility] Start: 02-04-2021 Education 14 [facility] Start: 1985 Sex Assigned At Not on file C [facility] Start: 10-16-2021 End: 10-26-2021 Exposure to SARS-CoV-2 (event) Not sure [facility] Start: 04-20-2020 End: 02-04-2021 Social connection and isolation panel [facility] Do you belong to any clubs or organizations such as jew groups, unions, fraternal or athletic groups, or school groups? No [facility] Are you now , , , , never or living with a partner? Never [facility] How often to you hav e a drink containing alcohol? 2-4 times a month [facility] How many standard dr inks containing alcohol do you have on a typical day? 3 or 4 [facility] How often do you hav e 6 or more drinks on 1 occasion? Less than monthly [facility] How hard is it for y ou to pay for the very basics like food, housing, medical care, and heating Somewhat hard [facility] Adult Depression Scr eening Assessment 0 [facility] Do you feel stress - tense, restless, nervous, or anxious, or unable to sleep at night because your mind is troubled all the time - these days [OSQ] Very much [facility] (I/We) worried robert er (my/our) food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 medicine in its original container protected from heat and light. Do not freeze insulin or store it near the cooling element in a refrigerator. Throw away any insulin that has been frozen. Storing unopened (not in use) insulin lispro: Refrigerate and use until expiration date; or Store at room temperature and use within 28 days. Storing opened (in use) insulin lispro: Store the vial in a refrigerator or at room temperature and use within 28 days. Store the cartridge or injection pen (without a needle attached) at room temperature and use within 28 days. Use a needle and syringe only once and place them in a puncture-proof 'sharps' container. Follow state or local laws about how to dispose of this container. Keep it out of the reach of children and pets. What happens if I miss a dose? Since insulin lispro is used with meals, you may not be on a timed dosing schedule. Whenever you use insulin lispro, follow the directions for your specific brand about whether to use the medicine before of after you eat. Do not use two doses at one time. What happens if I overdose? Seek emergency medical attention or call the Poison Help line at . Insulin overdose can cause life-threatening hypoglycemia. Symptoms include drowsiness, confusion, blurred vision, numbness or tingling in your mouth, trouble speaking, muscle weakness, clumsy or jerky movements, seizure (convulsions), or loss of consciousness. What should I avoid while using insulin lispro? Insulin can cause low blood sugar. Avoid driving or operating machinery until you know how this medicine will affect you. Avoid medication errors by always checking the medicine label before injecting your insulin. Avoid drinking alcohol. What are the possible side effects of insulin lispro? Get emergency medical help if you have signs of insulin allergy: redness or swelling where an injection was given, itchy skin rash over the entire body, trouble breathing, fast heartbeats, feeling like you might pass out, or swelling in your tongue or throat. Call your doctor at once if you have: weight gain, swelling in your hands or feet, feeling short of breath; low blood sugar--headache, hunger, sweating, irritability, dizziness, fast heart rate, and feeling anxious or shaky; or low potassium--leg cramps, constipation, irregular heartbeats, fluttering in your chest, increased thirst or urination, numbness or tingling, muscle weakness or limp feeling. Common side effects may include: low blood sugar; weight gain; swelling in your hands or feet; itching; or thickening or hollowing of the skin where you injected the medicine. This is not a complete list of side effects and others may occur. Call your doctor for medical advice about side effects. You may report side effects to FDA at 9-883-QIG-3145. What other drugs will affect insulin lispro? Many other medicines can affect your blood sugar, and some medicines can increase or decrease the effects of insulin. Some drugs can also cause you to have fewer symptoms of hypoglycemia, making it harder to tell when your blood sugar is low. Tell each of your health care providers about all medicines you use now and any medicine you start or stop using. This includes prescription and jtpw-nsj-fhznpbe medicines, vitamins, and herbal products. Where can I get more information? Your pharmacist can provide more information about insulin lispro. Remember, keep this and all other medicines out of the reach of children, never share your medicines with others, and use this medication only for the indication prescribed. Every effort has been made to ensure that the information provided by [employer]. ('[employer]') is accurate, up-to-date, and complete, but no guarantee is made to that effect. Drug information contained herein may be time sensitive. [employer] information has been compiled for use by healthcare practitioners and consumers in the [place] and therefore [employer] does not warrant that uses outside of the [place] are appropriate, unless specifically indicated otherwise. [employer]'s drug information does not endorse drugs, diagnose patients or recommend therapy. [employer] drug information is an informational resource designed to assist licensed healthcare practitioners in caring for their patients and/or to serve consumers viewing this service as a supplement to, and not a substitute for, the expertise, skill, knowledge and judgment of healthcare practitioners. The absence of a warning for a given drug or drug combination in no way should be construed to indicate that the drug or drug combination is safe, effective or appropriate for any given patient. [employer] does not assume any responsibility for any aspect of healthcare administered with the aid of information [employer] provides. The information contained herein is not intended to cover all possible uses, directions, precautions, warnings, drug interactions, allergic reactions, or adverse effects. If you have questions about the drugs you are taking, check with your doctor, nurse or pharmacist. Copyright [id number] [facility]. Version: 9.01. Revision Date: 11/21/2019. ciprofloxacin (oral) (SIP nirmal FLOX a sin) Cipro, Proquin XR What is the most important information I should know about ciprofloxacin? Ciprofloxacin can cause serious side effects, including tendon problems, nerve damage, serious mood or behavior changes, or low blood sugar. Stop using this medicine and call your doctor at once if you have: headache, hunger, irritability, numbness, tingling, burning pain, confusion, agitation, paranoia, problems with memory or concentration, thoughts of suicide, or sudden pain or movement problems in any of your joints. In rare cases, ciprofloxacin may cause damage to your aorta, which could lead to dangerous bleeding or . Get emergency medical help if you have severe and constant pain in your chest, stomach, or back. What is ciprofloxacin? Ciprofloxacin is a fluoroquinolone (ppfg-u-VBXH-o-lone) antibiotic, it is used to treat different types of bacterial infections. It is also used to treat people who have been exposed to anthrax or certain types of plague. Ciprofloxacin extended-release is only approved for use in adults. Fluoroquinolone antibiotics can cause serious or disabling side effects that may not be reversible. Ciprofloxacin should be used only for infections that cannot be treated with a safer antibiotic. Ciprofloxacin may also be used for purposes not listed in this medication guide. What should I discuss with my healthcare provider before taking ciprofloxacin? You should not use ciprofloxacin if you are allergic to it, or if: you also take tizanidine; or you are allergic to other fluoroquinolones (levofloxacin, moxifloxacin, norfloxacin, ofloxacin). Ciprofloxacin may cause swelling or tearing of a tendon (the fiber that connects bones to muscles in the body), especially in the Achilles' tendon of the heel. This can happen during treatment or several months after you stop taking ciprofloxacin. Tendon problems may be more likely in children and older adults, or people who use steroid medicine or have had an organ transplant. Tell your doctor if you have ever had: arthritis or problems with your tendons, bones or joints (especially in children); diabetes, low blood sugar; nerve problems; an aneurysm or blood circulation problems; heart problems, or a heart attack; muscle weakness, myasthenia gravis; liver or kidney disease; a seizure, head injury, or brain tumor; trouble swallowing pills; long QT syndrome (in you or a family member); or low levels of potassium in your blood (hypokalemia). Do not give this medicine to a child without medical advice. It is not known whether this medicine will harm an unborn baby. Tell your doctor if you are . You should not breastfeed while taking ciprofloxacin and for 2 days after your last dose. Ask your doctor about if you take ciprofloxacin for anthrax exposure. How should I take ciprofloxacin? Follow all directions on your prescription label and read all medication guides or instruction sheets. Use the medicine exactly as directed. Take ciprofloxacin at the same time each day, with or without food. Shake the oral suspension (liquid) for 15 seconds before you measure a dose. Use the dosing syringe provided, or use a medicine dose-measuring device (not a kitchen spoon). Do not give ciprofloxacin oral suspension through a feeding tube. Swallow the extended-release tablet whole and do not crush, chew, or break it. Drink plenty of liquids while you are taking ciprofloxacin. Use this medicine for the full prescribed length of time, even if your symptoms quickly improve. Skipping doses can increase your risk of infection that is resistant to medication. Ciprofloxacin will not treat a viral infection such as the flu or a common cold. Do not share ciprofloxacin with another person. Store at room temperature away from moisture and heat. Do not allow the liquid medicine to freeze. Throw away any unused liquid after 14 days. What happens if I miss a dose? If you take regular tablets or oral suspension: Take the medicine as soon as you can, but skip the missed dose if your next dose is due in less than 6 hours. If you take extended-release tablets: Take the medicine as soon as you can, but skip the missed dose if your next dose is due in less than 8 hours. Do not take two doses at one time. What happens if I overdose? Seek emergency medical attention or call the Poison Help line at . What should I avoid while taking ciprofloxacin? Do not take ciprofloxacin with dairy products such as milk or yogurt, or with calcium-fortified juice. You may eat or drink these products with your meals, but do not use them alone when taking ciprofloxacin. Antibiotic medicines can cause diarrhea, which may be a sign of a new infection. If you have diarrhea that is watery or bloody, call your doctor before using anti-diarrhea medicine. Ciprofloxacin could make you sunburn more easily. Avoid sunlight or tanning beds. Wear protective clothing and use sunscreen (SPF 30 or higher) when you are outdoors. Tell your doctor if you have severe burning, redness, itching, rash, or swelling after being in the sun. Avoid driving or hazardous activity until you know how this medicine will affect you. Your reactions could be impaired. What are the possible side effects of ciprofloxacin? Get emergency medical help if you have signs of an allergic reaction (hives, difficult breathing, swelling in your face or throat) or a severe skin reaction (fever, sore throat, burning in your eyes, skin pain, red or purple skin rash that spreads and causes blistering and peeling). Ciprofloxacin can cause serious side effects, including tendon problems, damage to your nerves (which may be permanent), serious mood or behavior changes (after just one dose), or low blood sugar (which can lead to coma). Stop taking this medicine and call your doctor at once if you have: low blood sugar--headache, hunger, irritability, dizziness, nausea, fast heart rate, or feeling shaky; nerve damage symptoms--numbness, tingling, burning pain in your hands, arms, legs, or feet: serious mood or behavior changes--nervousness, confusion, agitation, paranoia, hallucinations, memory problems, trouble concentrating, thoughts of suicide; or signs of tendon rupture--sudden pain, swelling, bruising, tenderness, stiffness, movement problems, or a snapping or popping sound in any of your joints (rest the joint until you receive medical care or instructions). In rare cases, ciprofloxacin may cause damage to your aorta, the main blood artery of the body. This could lead to dangerous bleeding or . Get emergency medical help if you have severe and constant pain in your chest, stomach, or back. Also, stop using ciprofloxacin and call your doctor at once if you have: severe stomach pain, diarrhea that is watery or bloody; fast or pounding heartbeats, fluttering in your chest, shortness of breath, and sudden dizziness (like you might pass out); any skin rash, no matter how mild; muscle weakness, breathing problems; little or no urination; jaundice (yellowing of the skin or eyes); or increased pressure inside the skull--severe headaches, ringing in your ears, dizziness, nausea, vision problems, pain behind your eyes. Common side effects may include: nausea, vomiting, diarrhea, stomach pain; headache; or abnormal liver function tests. This is not a complete list of side effects and others may occur. Call your doctor for medical advice about side effects. You may report side effects to FDA at 5-032-WUC-9899. What other drugs will affect ciprofloxacin? Some medicines can make ciprofloxacin much less effective when taken at the same time. If you take any of the following medicines, take your ciprofloxacin dose 2 hours before or 6 hours after you take the other medicine. the ulcer medicine sucralfate, or antacids that contain calcium, magnesium, or aluminum (such as Maalox, Milk of Magnesia, Mylanta, Pepcid Complete, Rolaids, Tums, and others); didanosine (Videx) powder or chewable tablets; vitamin or mineral supplements that contain calcium, iron, magnesium, or zinc. Tell your doctor about all your other medicines, especially: clozapine, cyclosporine, methotrexate, phenytoin, probenecid, ropinirole, sildenafil, or theophylline; a blood thinner (warfarin, Coumadin, Jantoven); heart medication or a diuretic or 'water pill'; oral diabetes medicine; products that contain caffeine; medicine to treat depression or mental illness; steroid medicine (such as prednisone); o NSAIDs (nonsteroidal anti-inflammatory drugs)--aspirin, ibuprofen (Advil, Motrin), naproxen (Aleve), celecoxib, diclofenac, indomethacin, meloxicam, and others; This list is not complete. Other drugs may affect ciprofloxacin, including prescription and nldb-wws-fupndcg medicines, vitamins, and herbal products. Not all possible drug interactions are listed here. Where can I get more information? Your pharmacist can provide more information about ciprofloxacin. Remember, keep this and all other medicines out of the reach of children, never share your medicines with others, and use this medication only for the indication prescribed. Every effort has been made to ensure that the information provided by [employer]. ('[employer]') is accurate, up-to-date, and complete, but no guarantee is made to that effect. Drug information contained herein may be time sensitive. [employer] information has been compiled for use by healthcare practitioners and consumers in the [place] and therefore [employer] does not warrant that uses outside of the [place] are appropriate, unless specifically indicated otherwise. [employer] drug information does not endorse drugs, diagnose patients or recommend therapy. [employer] drug information is an informational resource designed to assist licensed healthcare practitioners in caring for their patients and/or to serve consumers viewing this service as a supplement to, and not a substitute for, the expertise, skill, knowledge and judgment of healthcare practitioners. The absence of a warning for a given drug or drug combination in no way should be construed to indicate that the drug or drug combination is safe, effective or appropriate for any given patient. [employer] does not assume any responsibility for any aspect of healthcare administered with the aid of information [employer] provides. The information contained herein is not intended to cover all possible uses, directions, precautions, warnings, drug interactions, allergic reactions, or adverse effects. If you have questions about the drugs you are taking, check with your doctor, nurse or pharmacist. Copyright 5474-3872 [employer]. Version: 23.01. Revision Date: 11/28/2019. insulin lispro (IN gisela joseph BOBY pro) Admelog, HumaLOG, Lyumjev What is the most important information I should know about insulin lispro? Never share an injection pen, cartridge, or syringe with another person, even if the needle has been changed. What is insulin lispro? Insulin is a hormone that works by lowering levels of glucose (sugar) in the blood. Insulin lispro is a fast-acting insulin that starts to work about 15 minutes after injection, peaks in about 1 hour, and keeps working for 2 to 4 hours. Insulin lispro is used to improve blood sugar control in adults and children with diabetes mellitus. Admelog and HumaLOG are used to treat type 2 diabetes in adults, or type 1 diabetes in adults and children who are at least 3 years old. Lyumjev is not approved for use by anyone younger than 18 years old. Insulin lispro may also be used for purposes not listed in this medication guide. What should I discuss with my healthcare provider before using insulin lispro? You should not use insulin lispro if you are allergic to it, or if you are having an episode of hypoglycemia (low blood sugar). Insulin lispro should not be given to a child younger than 3 years old. Insulin lispro should not be used to treat type 2 diabetes in a child of any age. Tell your doctor if you have ever had: liver or kidney disease; heart problems; or low levels of potassium in your blood (hypokalemia). Tell your doctor if you also take medicine that contains pioglitazone or rosiglitazone. Taking certain oral diabetes medicines while you are using insulin may increase your risk of serious heart problems. Tell your doctor if you are or . Follow your doctor's instructions about using insulin if you are or you become . Controlling diabetes is very important during , and having high blood sugar may cause complications in both the mother and the baby. How should I use insulin lispro? Follow all directions on your prescription label and read all medication guides or instruction sheets. Use the medicine exactly as directed. Insulin lispro is injected under the skin with a syringe and needle, an injection pen, or with an infusion pump. A healthcare provider will teach you how to properly use this medicine by yourself. Read and carefully follow any Instructions for Use provided with your medicine. Ask your doctor or pharmacist if you do not understand these instructions. Prepare your injection only when you are ready to give it. Do not use if the medicine looks cloudy, has changed colors or has particles in it. Call your pharmacist for new medicine. Admelog or HumaLOG are given within 15 minutes before a meal, or right after eating. Lyumjev is given at the start of a meal or within 20 minutes after eating. Your healthcare provider will show you where on your body to inject insulin lispro. Use a different place each time you give an injection. Do not inject into the same place two times in a row. Do not inject into skin that is damaged, tender, bruised, pitted, thickened, scaly, or has a scar or hard lump. Concentrated insulin lispro (200 units) must not be given with an insulin pump, or mixed with other insulins. Do not transfer insulin lispro from an injection pen to a syringe or a severe overdose could occur. Never share an injection pen, cartridge, or syringe with another person, even if the needle has been changed. Sharing these devices can allow infections or disease to pass from one person to another. You may have low blood sugar (hypoglycemia) and feel very hungry, dizzy, irritable, confused, anxious, or shaky. To quickly treat hypoglycemia, eat or drink a fast-acting source of sugar (fruit juice, hard candy, crackers, raisins, or non-diet soda). Your doctor may prescribe a glucagon injection kit in case you have severe hypoglycemia. Be sure your family or close friends know how to give you this injection in an emergency. Also watch for signs of high blood sugar (hyperglycemia) such as increased thirst or urination. Blood sugar levels can be affected by stress, illness, surgery, exercise, alcohol use, or skipping meals. Ask your doctor before changing your dose or medication schedule. Keep this medicine in its original container protected from heat and light. Do not freeze insulin or store it near the cooling element in a refrigerator. Throw away any insulin that has been frozen. Storing unopened (not in use) insulin lispro: Refrigerate and use until expiration date; or Store at room temperature and use within 28 days. Storing opened (in use) insulin lispro: Store the vial in a refrigerator or at room temperature and use within 28 days. Store the cartridge or injection pen (without a needle attached) at room temperature and use within 28 days. Use a needle and syringe only once and place them in a puncture-proof 'sharps' container. Follow state or local laws about how to dispose of this container. Keep it out of the reach of children and pets. What happens if I miss a dose? Since insulin lispro is used with meals, you may not be on a timed dosing schedule. Whenever you use insulin lispro, follow the directions for your specific brand about whether to use the medicine before of after you eat. Do not use two doses at one time. What happens if I overdose? Seek emergency medical attention or call the Poison Help line at . Insulin overdose can cause life-threatening hypoglycemia. Symptoms include drowsiness, confusion, blurred vision, numbness or tingling in your mouth, trouble speaking, muscle weakness, clumsy or jerky movements, seizure (convulsions), or loss of consciousness. What should I avoid while using insulin lispro? Insulin can cause low blood sugar. Avoid driving or operating machinery until you know how this medicine will affect you. Avoid medication errors by always checking the medicine label before injecting your insulin. Avoid drinking alcohol. What are the possible side effects of insulin lispro? Get emergency medical help if you have signs of insulin allergy: redness or swelling where an injection was given, itchy skin rash over the entire body, trouble breathing, fast heartbeats, feeling like you might pass out, or swelling in your tongue or throat. Call your doctor at once if you have: weight gain, swelling in your hands or feet, feeling short of breath; low blood sugar--headache, hunger, sweating, irritability, dizziness, fast heart rate, and feeling anxious or shaky; or low potassium--leg cramps, constipation, irregular heartbeats, fluttering in your chest, increased thirst or urination, numbness or tingling, muscle weakness or limp feeling. Common side effects may include: low blood sugar; weight gain; swelling in your hands or feet; itching; or thickening or hollowing of the skin where you injected the medicine.< (more content not included)... [facility] 03-23-2023 Note . MICRO - Microbiology PROCEDURE: Urine Culture [*1] SOURCE: Urine, Clean Catch BODY SITE: COLLECTED DATE/TIME: 03/22/2023 11:32 EST RECEIVED DATE/TIME: 03/22/2023 14:10 EST START DATE/TIME: 03/22/2023 14:10 EST FREE TEXT SOURCE: FINAL REPORTS Final Report [] Verified Date/Time/Personnel: 03/23/2023 14:32 EST 50,000 - 100,000 cfu/ml Multiple bacterial morphotypes present. Probable Contamination. Suggest recollection if clinically indicated. Performing Locations *1: This test was performed at: [facility], [address] [place] [address], [id number] , [facility] 03-23-2023 Note Date of Service 03/23/2023 Chief Complaint dysuria, right flank pain Subjective Patient seen and evaluated this morning while resting in bed. She states that she is not feeling much better yet. She continues to have burning with urination and right flank pain. She denies any fever, chills, cough, shortness of breath, chest pain, abdominal pain, nausea or dysuria. Patient advised that we are requesting her lab results from [facility] to see what her urine culture was growing there. She may be growing a more resistant bacteria that will require a different antibiotic. 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 She has never seen a urologist but may need to if she continues to have urinary tract infections from urinary retention. Patient advised that her white blood cell count was normal today so we are likely on the right track with the Ceftriaxone. All questions answered. We were able to obtain her ED records from [facility], however, a urine culture was not done there so were of little help. Objective Vitals and Measurements T: 36.6 C (Oral) TMIN: 36.3 C (Oral) TMAX: 36.7 C (Oral) HR: 76(Apical) RR: 20 BP: 129/76 SpO2: 93% HT: 170.2 cm WT: 109.9 kg BMI: 37.59 Intake and Output 7AM Yesterday to 7AM Today Intake and Output (Last 24 hours) Intake Oral Intake 520.00 Administration Information 1310.00 Output Stool Count 0.00 Urine Count 3.00 Emesis Count 3.00 Total Summary Total Intake 1830.00 Total Output 0.00 Fluid Balance 1830.00 Physical Exam General: No acute distress. Patient is alert and appropriate. Skin: No rash. Skin is warm, dry and intact. HEENT: Head is normocephalic, atraumatic. Pupils are equal, round and reactive. Neck: Supple. No lymphadenopathy, thyromegaly. Lungs: Bilaterally clear but diminished without crepitation or wheeze. Unlabored. Heart: Heart is regular rhythm, S1, S2. No murmurs, gallops or rubs. Abdomen: Abdomen is soft, nontender. Bowels sounds present in all quadrants. Extremities: No clubbing, cyanosis, or edema. Peripheral pulses palpable. No calf tenderness. Neurological: Patient is awake and alert to person, place and time. Following simple commands, moving all extremities. Weight Dosing Weight: 109.9 kg (03/22/23) Dosing Weight: 108.9 kg (03/22/23) Medications Medications (22) Active Scheduled: (11) acidophilus/bulgaris 1g granule packet 1 packet(s), Oral, BID atorvastatin 10 mg tablet 20 mg 2 tab(s), Oral, Daily cefTRIAXone 1 gram(s), IV Piggyback, qDay doxepin 25 mg Capsule 75 mg 3 cap(s), Oral, qHS dulaglutide 0.75 mg/0.5 mL Soln PEN 0.75 mg 0.5 mL, Subcutaneous, qWeek enoxaparin 40 mg/ 0.4mL syringe 40 mg 0.4 mL, Subcutaneous, qDay fluconazole 100 mg tablet 100 mg 1 tab(s), Oral, qDay insulin glargine 100 units/ml solution 15 unit(s) 0.15 mL, Subcutaneous, qHS insulin lispro 100 units/mL Soln (3 mL) Give 0-5 units/dose, Subcutaneous, TIDAC Nicoderm patch REMOVAL 1 EA, Miscellaneous, q24h nicotine 14 mg/24 hr ER patch 14 mg 1 patch(es), Transdermal, q24h Continuous: (1) Lactated Ringers 1,000 mL 1,000 mL, Intravenous, 100 mL/hr PRN: (10) acetaminophen 325 mg Tablet 650 mg 2 tab(s), Oral, q4h acetaminophen 325 mg Tablet 650 mg 2 tab(s), Oral, q4h acetaminophen-HYDROcodone 325-5 mg tablet 1 tab(s), Oral, q4h albuterol - ipratropium 2.5 mg-0.5 mg/3 mL Inhal [place] UD 3 mL, Inhalation, q2hRT benzonatate 100 mg Capsule 100 mg 1 cap(s), Oral, TID calcium carbonate 500 mg Chewable 500 mg 1 tab(s), Chewed, TID guaifenesin 100 mg/5 mL Liquid SUGAR-FREE 120 mL 200 mg 10 mL, Oral, q4h melatonin 3 mg tablet 6 mg 2 tab(s), Oral, qHS morphine 2 mg/mL 1 mL syringe 2 mg 1 mL, IV Push, q3h ondansetron 2 mg/ 1 mL 2 mL INJ 4 mg 2 mL, IV Push, q4h Lab Results 03/23 05:06 WBC: 8.6 Hgb: 13.3 Hct: 39.4 Platelet: 235 Neutrophil %: 60.3 Glucose Level: 191 H Sodium Level: 138 Potassium Level: 4.1 BUN: 5 L Creatinine Lvl (s): 0.77 03/22 11:32 WBC: 11.0 H Hgb: 13.6 Hct: 40.6 Platelet: 256 Neutrophil %: 70.2 Glucose Level: 313 H Sodium Level: 137 Potassium Level: 3.9 BUN: 8 Creatinine Lvl (s): 0.71 Imaging Results and Diagnostics CT Abd/Pelvis w/ IV Contrast Only Result Date: March 22, 2023 Verified By: TIFFANI QUEVEDO MD CLINICAL STATEMENT: IMPRESSION: Increased enhancement of the wall of the right renal pelvis and proximal ureter raises concern for potential pyelonephritis. Urinalysis correlation recommended. No other acute finding. EKG No qualifying data available. Assessment/Plan 1. Pyelonephritis Acute, ongoing for 2 weeks accompanied by dysuria and right flank pain, had been on Keflex for the past week without any improvement in symptoms. Patient administered Ceftriaxone 1 gram IV in the ED - will continue on admission. Urine and blood cultures are pending. Continue IV and PO pain medication. Records from ED visit at [facility] obtained but no urine culture done. 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 She may benefit from urology referral as she feels that she may have urinary retention and does have frequent UTIs. Repeat CBC and BMP in the am. 2. Diabetes Chronic, type 2 diabetes, uncontrolled. Blood sugar checks before meals and at bedtime. Cover with corrective sliding scale insulin. ADA diet. Continue current home medications. Check HgbA1c in am. 3. Bipolar 1 disorder Chronic. Continue current home medication. DVT prophylaxis with Lovenox. Code status: Full Code. Labs, diagnostic test and progress notes reviewed as noted in HPI. Plan of care discussed with patient. All questions answered. Patient verbalizes understanding and is agreeable with plan of care. This case was discussed with collaborating physician, Dr. Adolfo Stacy. Time Spent 35 minutes spent reviewing past diagnostic tests, reviewing lab results, vital sign trends, medical history, reviewing medications and ordering home medications, examining patient, collaborating with physician, and documenting in chart. Digitally Signed by ROSY PHAN on 03/23/2023 02:38 PM [facility] 03-22-2023 Note Date of Service 03/22/2023 Chief Complaint pt states she has been having UTI symptoms for almost 2 weeks, blood in urine/flank pain.Seen at [facility] last Tuesday and DX with UTI and given IV antibiotics and d/c home with 3 days of oral antibiotics. Pt states she is not any better. History of Present Illness Patient is a 37-year-old female, who follows with Dr. Axel Alford with a past medical history significant for type 2 diabetes and Bipolar disorder, presents to [facility] emergency department with the chief complaint of UTI symptoms for about 2 weeks. Patient reports that she has had dysuria for about 2 weeks now. She was seen at [facility] emergency department one week ago and diagnosed with a urinary tract infection. Patient was administered IV ceftriaxone and then discharged on Keflex. She states she has been taking her antibiotic as prescribed. She states that her dysuria has not improved and she developed right flank pain a few days ago. Patient states that she called into the ED to see if they would call in a prescription for a different antibiotic but they told her she would need to be seen again. They told her that her records were sent to her PCP but she called the PCP's office and they stated that they had not received anything. Patient denies any fever, chills, chest pain, abdominal pain, or nausea. She reports that she has a cold and has been coughing and short of breath. She also reports diarrhea. In the emergency department, CT of the abdomen/pelvis revealed increased enhancement of the wall of the right renal pelvis and proximal ureter raises concern for potential pyelonephritis. White blood cell count 11.0. CBC otherwise unremarkable. BMP significant for glucose 313. Urinalysis significant for glucose 500, moderate amount of blood, 100 protein, trace leukocyte esterace, urine RBC 5-10, urine WBC loaded, and 1+ bacteria. Urine and blood cultures obtained and pending. Patient was administered 1 liter of NS, 1 gram Ceftriaxone IV, 4 mg Zofran IV and 4 mg morphine IV x 2. The case was discussed with the ED physician who recommended admission for pyelonephritis and failure of outpatient therapy. Patient was transferred to medical surgical unit for further evaluation and treatment. We will continue Ceftriaxone 1 gram IV daily pending results of urine and blood cultures. Start LR @ 100cc/hr for 24 hours. We will request records from [facility] specifically results of urine culture. We will continue PO and IV pain medication and antiemetics. Repeat CBC and BMP in the am. Review of Systems Review of Systems: Reviewed in detail, including general health, HEENT, cardiovascular, respiratory, gastrointestinal, genitourinary, endocrine, musculoskeletal, neurologic, vascular, skin, and psychiatric. All are negative except for those listed in the History of Present Illness. Physical Exam Vitals and Measurements T: 36.3 C (Oral) TMIN: 36.3 C (Oral) TMAX: 36.6 C (Oral) HR: 79(Monitored) RR: 18 BP: 132/69 SpO2: 90% HT: 170.2 cm WT: 109.9 kg BMI: 37.59 Weight Dosing Weight: 109.9 kg (03/22/23) Dosing Weight: 108.9 kg (03/22/23) General: Patient in mild distress. Patient is alert and appropriate. Skin: No rash. Skin is warm, dry and intact. HEENT: Head is normocephalic, atraumatic. Pupils are equal, round and reactive. Neck: Supple. No lymphadenopathy, thyromegaly. Lungs: Bilaterally clear but diminished without crepitation or wheeze. Unlabored. Heart: Heart is regular rhythm, S1, S2. No murmurs, gallops or rubs. Abdomen: Abdomen is soft, nontender, obese. Bowels sounds present in all quadrants. Extremities: No clubbing, cyanosis, or edema. Peripheral pulses palpable. No calf tenderness. Neurological: Patient is awake and alert to person, place and time. Following simple commands, moving all extremities. Lab Results 03/22 11:32 WBC: 11.0 H Hgb: 13.6 Hct: 40.6 Platelet: 256 Neutrophil %: 70.2 Glucose Level: 313 H Sodium Level: 137 Potassium Level: 3.9 BUN: 8 Creatinine Lvl (s): 0.71 Imaging Results and Diagnostics CT Abd/Pelvis w/ IV Contrast Only Result Date: March 22, 2023 Verified By: TIFFANI QUEVEDO MD CLINICAL STATEMENT: IMPRESSION: Increased enhancement of the wall of the right renal pelvis and proximal ureter raises concern for potential pyelonephritis. Urinalysis correlation recommended. No other acute finding. Assessment/Plan 1. Pyelonephritis Acute, ongoing for 2 weeks accompanied by dysuria and right flank pain, had been on Keflex for the past week without any improvement in symptoms. Patient administered Ceftriaxone 1 gram IV in the ED - will continue on admission. Urine and blood cultures are pending. Continue IV and PO pain medication. Request records from ED visit at [facility]. Repeat CBC and BMP in the am. 2. Diabetes Chronic, type 2 diabetes, uncontrolled. Blood sugar checks before meals and at bedtime. Cover with corrective sliding scale insulin. ADA diet. Continue current home medications. 3. Bipolar 1 disorder Chronic. Continue current home medications. DVT prophylaxis with Lovenox. Code status: Full Code. Labs, diagnostic test and progress notes reviewed as noted in HPI. Plan of care discussed with patient. All questions answered. Patient verbalizes understanding and is agreeable with plan of care. This case was discussed with collaborating physician, Dr. Adolfo Stacy. 55 minutes spent reviewing past diagnostic tests, reviewing lab results, vital sign trends, medical history, reviewing medications and ordering home medications, examining patient, collaborating with physician, and documenting in chart. Problem List/Past Medical History Ongoing Anxiety Diabetes Historical No qualifying data Procedure/Surgical History H/O: tubal ligation delivery Medications Home Medications (8) Active atorvastatin 20 mg oral tablet 20 mg = 1 tab(s), Oral, Daily D3-50 50,000 UNIT CAPSULE 1 doxepin 75 mg oral capsule 75 mg = 1 cap(s), Oral, qHS HumaLOG Jose KwikPen 100 units/mL injectable PEN See Instructions Lantus 100 units/mL10 ml vial solution 15 unit(s), Subcutaneous, qHS Lantus Solostar Pen 100 units/mL 3 mL Pen 15 unit(s) ondansetron 4 mg oral tablet 4 mg = 1 tab(s), PRN, Oral, q8h Trulicity Pen 0.75 mg/0.5 mL subcutaneous solution 0.75 mg = 0.5 mL, Subcutaneous, qWeek Allergies NKA Social History Smoking Status - 07/06/2016 Current every day smoker Alcohol - No Risk, 09/13/2018 Use: Never., 08/27/2018 Home/Environment Domestic Concerns: None. Living situation: Home/Independent. Lives In: Single level home. Current Home Treatments None. Professional Skilled Services or Special Community Resources None., 03/22/2023 Nutrition/Health Type of diet: Diabetic. Appetite Good. Eating Difficulties None., 03/22/2023 Sexual Sexually active: Yes. Gender Identity: Identifies as female., 03/22/2023 Substance Abuse - No Risk, 09/13/2018 Use: Never., 08/27/2018 Tobacco - No Risk, 09/13/2018 Tobacco Use: 10 or more cigarettes (1/2 pack or more)/day in last 30 days. Type: Cigarettes., 08/27/2018 Family History Family history is negative Immunizations No qualifying data available. Code Status Code Status - Ordered -- 03/22/23 13:39:00 EST, Full Code, Constant Order Digitally Signed by ROSY PHAN on 03/22/2023 07:29 PM [facility] 03-22-2023 Hospital Discharge instructions Patient Education 03/22/2023 13:17:46 Pyelonephritis, Female (Adult) Kidney Infection (Adult Female) An infection in one or both kidneys is called pyelonephritis. It usually happens when bacteria (or rarely, viruses, fungi, or other disease-causing organisms) get into the kidney. The bacteria (or other disease-causing organisms) can enter the kidneys from the bladder or blood traveling from other parts of the body. A kidney infection can become serious. It can cause severe illness, scarring of the kidneys, or kidney failure if not treated properly. Common causes for this problem include: Not keeping the genital area clean and dry, which promotes the growth of bacteria Wiping back to front which drags bacteria from the rectum toward the urinary opening (urethra) Wearing tight pants or underwear (this lets moisture build up in the genital area, which helps bacteria grow) Holding urine in for long periods of time Dehydration Kidney infections can cause symptoms similar to a bladder infection. Symptoms include: Pain (or burning) when urinating Having to urinate more often than usual Blood in the urine (pink or red) Abdominal pain or discomfort, usually in the lower abdomen Pain in the side or back Pain above the pubic bone Fever or chills Vomiting Loss of appetite Treatment is oral antibiotics, or in more severe cases, intramuscular or IV antibiotics. These are started right away and may be changed once urine culture results determine the infecting organisms. Treatment helps prevent a more serious kidney infection. Medicines Medicines can help in the treatment of a bladder infection: Take antibiotics until they are used up, even if you feel better. It is important to finish them to make sure the infection is gone. Unless another medicine was prescribed, you can use [id number] medicines for pain, fever, or discomfort. If you have chronic liver of kidney disease, talk with your healthcare provider before using these medicines. Also talk with your provider if you've ever had a stomach ulcer or gastrointestinal (GI) bleeding, or are taking blood thinners. Home care The following are general care guidelines: Stay home from work or school. Rest in bed until your fever breaks and you are feeling better, or as advised by your healthcare provider. Drink lots of fluid unless you must restrict fluids for other medical reasons. This will force the medicine into your urinary system and flush the bacteria out of your body. Ask your healthcare provider how much you should drink. Don't have sex until you have finished all of your medicine and your symptoms are gone. Don't have caffeine, alcohol, or spicy foods. These foods may irritate the kidneys and bladder. Don't take bubble baths. Sensitivity to the chemicals in bubble baths can irritate the urethra. Make sure you wipe from front to back after using the toilet. Wear loose cloths and cotton underwear. Prevention These self-care steps can help prevent future infections: Drink plenty of fluids to prevent dehydration and flush out the bladder. Do this unless you must restrict fluids for other health reasons, or your healthcare provider told you not to. Proper cleaning after going to the bathroom in important. Make sure you wipe from front to back after using the toilet. Urinate more often. Don't try to hold urine in for a long time. Don't wear tight-fitting pants and underwear. Improve your diet to prevent constipation. Eat more fruits, vegetables, and fiber. Eat less junk and fatty foods. Constipation can make a urinary tract infection more likely. Talk with your healthcare provider if you have trouble with bowel movements. Urinate right after intercourse to flush out the bladder. Follow-up care Follow up with your healthcare provider, or as advised. Additional testing may be needed to make sure the infection has cleared. Close follow-up and further testing is very important to find the cause and to prevent future infections. If a urine culture was done, you will be contacted if your treatment needs to be changed. If directed, you may call to find out the results. If you had an X-ray, CT scan, or other diagnostic test, you will be notified of any new findings that may affect your care. Call 911 Call 911 if any of the following occur: Trouble breathing Fainting or loss of consciousness Rapid or very slow heart rate Weakness, dizziness, or fainting Difficulty arousing or confusion When to seek medical advice Call your healthcare provider right away if any of these occur: Fever 100.4 F (38 C) or higher, or as directed by your healthcare provider Not feeling better within 1 to 2 days after starting antibiotics Any symptom that continues after 3 days of treatment Increasing pain in the stomach, back, side, or groin area Repeated vomiting Not able to take prescribed medicine due to nausea or another reason Bloody, dark-colored, or foul smelling urine Trouble urinating or decreased urine output No urine for 8 hours, no tears when crying, sunken eyes, or dry mouth [id number] [employer] [place] [address]. All rights reserved. This information is not intended as a substitute for professional medical care. Always follow your healthcare professional's instructions. Follow Up Care 03/22/2023 11:08:43 With:GIDEON ALFORD APRN-[facility] Address: [address] [place] [address] [place] [phone] When: Unknown [facility] 03-22-2023 Evaluation + Plan note Extrac marci from: Title:History and Physical Author:ROSY PHAN APRN-ACADEMIC INTERN Date:03/22/23 1. Pyelonephritis Acute, ongoing for 2 weeks accompanied by dysuria and right flank pain, had been on Keflex for the past week without any improvement in symptoms. Patient administered Ceftriaxone 1 gram IV in the ED - will continue on admission. Urine and blood cultures are pending. Continue IV and PO pain medication. Request records from ED visit at [facility]. Repeat CBC and BMP in the am. 2. Diabetes Chronic, type 2 diabetes, uncontrolled. Blood sugar checks before meals and at bedtime. Cover with corrective sliding scale insulin. ADA diet. Continue current home medications. 3. Bipolar 1 disorder Chronic. Continue current home medications. DVT prophylaxis with Lovenox. Code status: Full Code. Labs, diagnostic test and progress notes reviewed as noted in HPI. Plan of care discussed with patient. All questions answered. Patient verbalizes understanding and is agreeable with plan of care. This case was discussed with collaborating physician, Dr. Adolfo Stacy. 55 minutes spent reviewing past diagnostic tests, reviewing lab results, vital sign trends, medical history, reviewing medications and ordering home medications, examining patient, collaborating with physician, and documenting in chart. [facility] 11-07-2023 Note ORIGINAL EXAMINATION: CT OF THE ABDOMEN AND PELVIS WITH CONTRAST 03/22/2023 12:26 pm TECHNIQUE: CT of the abdomen and pelvis was performed with the administration of intravenous contrast. Multiplanar reformatted images are provided for review. Automated exposure control, iterative reconstruction, and/or weight based adjustment of the mA/kV was utilized to reduce the radiation dose to as low as reasonably achievable. COMPARISON: October 06, 2019 HISTORY: ORDERING SYSTEM PROVIDED HISTORY: Reason for Exam: Right flank pain FINDINGS: No osseous abnormality identified. Lung bases are unremarkable. Minor fatty infiltration of the liver is noted with no focal lesions seen. Spleen, adrenal glands and pancreas are unremarkable. The left kidney is normal. The right kidney shows mild increased enhancement of the coffey of the renal pelvis and proximal ureter. No evidence for stone disease or perinephric infiltration.. No adenopathy, free air or free fluid seen. Solid pelvic organs and urinary bladder are unremarkable. No GI tract abnormality seen. The appendix is unremarkable. Small fat containing umbilical hernia is evident, and below this there is an additional fat containing ventral hernia. No additional contributory abnormality identified. IMPRESSION: Increased enhancement of the wall of the right renal pelvis and proximal ureter raises concern for potential pyelonephritis. Urinalysis correlation recommended. No other acute finding. Interpreted by: Tiffani Quevedo MD Preliminary Report By: Tiffani Quevedo MD Electronically signed By Tiffani Quevedo MD Dictated Date: 03/22/2023 1:00:26 PM Prelim Date: 03/22/2023 1:06:24 PM Sign Date: 03/22/2023 1:06:24 PM [facility] Note . MICRO - Microbiology PROCEDURE: Blood Culture (bacterial) [*1] SOURCE: Blood BODY SITE: COLLECTED DATE/TIME: 03/15/2023 16:30 EDT RECEIVED DATE/TIME: 03/16/2023 14:56 EDT START DATE/TIME: 03/16/2023 14:57 EDT FREE TEXT SOURCE: FINAL REPORTS Final Report [] Verified Date/Time/Personnel: 03/21/2023 14:59 EST Blood Culture: No Growth at 5 days. PRELIMINARY REPORTS Preliminary Report [] Verified Date/Time/Personnel: 03/16/2023 15:59 EDT Culture has been received in lab and is no growth to date. Routine cultures are held for 5 days. Performing Locations *1: This test was performed at: [address], [address] [place], [place] [address]03-21-2023 Note. MICRO - Microbiology PROCEDURE: Blood Culture (bacterial) [*1] SOURCE: Blood BODY SITE: COLLECTED DATE/TIME: 03/15/2023 16:30 EDT RECEIVED DATE/TIME: 03/16/2023 14:56 EDT START DATE/TIME: 03/16/2023 14:57 EDT FREE TEXT SOURCE: FINAL REPORTS Final Report [] Verified Date/Time/Personnel: 03/21/2023 14:59 EST Blood Culture: No Growth at 5 days. PRELIMINARY REPORTS Preliminary Report [] Verified Date/Time/Personnel: 03/16/2023 15:59 EDT Culture has been received in lab and is no growth to date. Routine cultures are held for 5 days. Performing Locations *1: This test was performed at: [address], [address] [place], [place] [address]03-02-2023 Hospital Discharge instructions Patient Education 03/01/2023 23:54:06 High Blood Sugar (Hyperglycemia) High Blood Sugar (Hyperglycemia) Too much sugar (glucose) in your blood is called high blood sugar (hyperglycemia). This can lead toa dangerous condition called ketoacidosis. In severe cases, it can lead to fluid loss (dehydration)and coma. Possible causes of high blood sugar Having a poor treatment plan for diabetes Being sick Being under stress Taking certain medicines, such as steroids Eating too much food, especially carbohydrates Being less active than normal Not taking enough diabetes medicine Symptoms of high blood sugar High blood sugar may not cause symptoms. If you do have symptoms, they may include: Thirst Frequent need to urinate Feeling tired or drowsy Nausea and vomiting Itchy, dry skin Blurry vision Fast breathing and breath that smells fruity Weakness Dizziness Wounds or skin infections that don t heal Unexplained weight loss if hyperglycemia lasts for more than a few days What to do Do the following: Check your blood sugar. Drink plenty of sugar-free, caffeine-free liquids such as water. Don t drink fruit juice. Check your blood sugar again every 4 hours. If you take insulin or diabetes medicines, follow your sick-day plan for taking medicine. Call your healthcare provider if you are not able to eat. Check your blood or urine for ketones as directed. Call your provider if your blood sugar and ketones don't go back to your target range. If the value is high, take your diabetes medicines as prescribed. And check your blood sugar more often. Doses of medicines such as insulin can be increased slightly if blood sugars stay high. But your provider must approve this. Preventing high blood sugar To help keep your blood sugar from getting too high: Control stress. When you're ill, follow your sick-day plan. Follow your meal plan. Eat only the amount of food on your meal plan. Stick to your exercise plan. Take your insulin or diabetes medicines as directed by your healthcare team. Also test your blood sugar as directed. If the plan is not working for you, discuss it with your healthcare provider. Other things to do Carry a medical ID card or a compact USB drive. Or wear a medical alert bracelet or necklace. It should say that you have diabetes. It should also say what to do in case you pass out or go into a coma. Make sure family, friends, and coworkers know the signs of high blood sugar. Tell them what to do if your blood sugar gets very high and you can t help yourself. Talk with your healthcare team about other things you can do to prevent high blood sugar. Special note: Drink plenty of sugar-free and caffeine-free liquids when you feel symptoms of hyperglycemia. Call your healthcare provider if you keep having episodes of high blood sugar. [id number] [employer]. [address] [place] [address], [place] [address]. All rights reserved. This information is not intended as a substitute for professional medical care. Always follow yourhealthcare professional's instructions. 03/01/2023 23:54:05 Dehydration Dehydration The human body is comprised largely of water. If you lose more fluids than you take in, you can become dehydrated. This means there are not enough fluids in your body for it to function right. Mild dehydration can cause weakness, confusion, or muscle cramps. In extreme cases, it can lead to brain damage and even . That's why prompt treatment is crucial. Risk factors Anyone can become dehydrated. But infants, children, and older adults are at greatest risk. You aremost likely to lose fluids with severe vomiting, diarrhea, or a fever. Exercising or working hard especially in hot weather can also cause excess fluid loss. What to do Drinking liquids is the best way to prevent dehydration. Water is best, but juice or frozen pops can also help. For adults, don't use liquids that contain caffeine or alcohol to rehydrate. Your doctor may suggest electrolyte solutions for sick infants and young children. When to go to the emergency room (ER) Go to an ER right away for these symptoms: Adults Very dark urine and little urine output Dizziness, weakness, confusion, fainting Children Sunken eyes Little or no urine output (for infants, no wet diaper in 8 hours) Very dark urine Skin that doesn't bounce back quickly when pinched Crying without tears Lethargy, decreased activity, or increased sleepiness What to expect in the emergency room Your blood pressure, temperature, and heart rate will be checked. You may have blood or urine tests. The main treatment for dehydration is fluids. You may be given these to drink. Or, you may receivethem through a vein in your arm. You also may be treated for diarrhea, vomiting, or a high fever. [id number] [employer]. [address] [place] [address], [place] [address]. All rights reserved. This information is not intended as a substitute for professional medical care. Always follow yourhealthcare professional's instructions. Follow Up Care 03/01/2023 19:16:32 With:AXEL ALFORD DO Address: [facility] [address] [id number] [place] [address] [phone] [facility]:2[facility] [facility] Note Discharge Instructions Thank you for allowing [facility] to assist you with your healthcare needs. The following is importantdischarge information regarding your hospital visit. Diagnosis from Today's Visit Dehydration Hyperglycemia Numbness/tingling left side Weakness What to Do Next Instructions from Your Care Team No qualifying data available. Post Acute Orders No qualifying data available. You Need to Schedule the Following Appointments Follow Up with AXEL ALFORD DO When Within 2-4 days Where: [id number] [place] [address]- [phone] Allergies NKA Medications Please ask your primary doctor or pharmacist before taking any other medication not listed, including over the counter drugs, herbal medications, vitamins and or supplements as they may interact withyour home medications. What How Much When Why Instructions Last Dose Unchanged insulin glargine (Lantus 100 units/ mL10 mlvial solution) 10 unit(s) Subcutaneous Daily at bedtime Hyperglycemia Unchanged insulin lispro (HumaLOG) (HumaLOG KwikPen 100 units/ mL injectable PEN) 5 unit(s) Subcutaneous Three (3) times a day before meals Hyperglycemia Unchanged semaglutide (Ozempic 2 mg/ 1.5 mL (0.25 mg or 0.5 mg dose) subcutaneous solution) 0.25 Milligram Subcutaneous Every week rotate injection sites Please take this list to your next doctor s visit. Bring all medications you take, including over the counter medications, herbals and other supplements with you to your doctor s visit. Patients and families are reminded to discard old lists and to update any records with all medication providers or retail pharmacies. [employer] High Blood Sugar (Hyperglycemia) Too much sugar (glucose) in your blood is called high blood sugar (hyperglycemia). This can lead toa dangerous condition called ketoacidosis. In severe cases, it can lead to fluid loss (dehydration)and coma. Possible causes of high blood sugar Having a poor treatment plan for diabetes Being sick Being under stress Taking certain medicines, such as steroids Eating too much food, especially carbohydrates Being less active than normal Not taking enough diabetes medicine Symptoms of high blood sugar High blood sugar may not cause symptoms. If you do have symptoms, they may include: Thirst Frequent need to urinate Feeling tired or drowsy Nausea and vomiting Itchy, dry skin Blurry vision Fast breathing and breath that smells fruity Weakness Dizziness Wounds or skin infections that don t heal Unexplained weight loss if hyperglycemia lasts for more than a few days What to do Do the following: Check your blood sugar. Drink plenty of sugar-free, caffeine-free liquids such as water. Don t drink fruit juice. Check your blood sugar again every 4 hours. If you take insulin or diabetes medicines, follow your sick-day plan for taking medicine. Call your healthcare provider if you are not able to eat. Check your blood or urine for ketones as directed. Call your provider if your blood sugar and ketones don't go back to your target range. If the value is high, take your diabetes medicines as prescribed. And check your blood sugar more often. Doses of medicines such as insulin can be increased slightly if blood sugars stay high. But your provider must approve this. Preventing high blood sugar To help keep your blood sugar from getting too high: Control stress. When you're ill, follow your sick-day plan. Follow your meal plan. Eat only the amount of food on your meal plan. Stick to your exercise plan. Take your insulin or diabetes medicines as directed by your healthcare team. Also test your blood sugar as directed. If the plan is not working for you, discuss it with your healthcare provider. Other things to do Carry a medical ID card or a [employer] drive. Or wear a medical alert bracelet or necklace. It should say that you have diabetes. It should also say what to do in case you pass out or go into a coma. Make sure family, friends, and coworkers know the signs of high blood sugar. Tell them what to do if your blood sugar gets very high and you can t help yourself. Talk with your healthcare team about other things you can do to prevent high blood sugar. Special note: Drink plenty of sugar-free and caffeine-free liquids when you feel symptoms of hyperglycemia. Call your healthcare provider if you keep having episodes of high blood sugar. [id number] The [employer]. [address] [place] [address], [place] [address]. All rights reserved. This information is not intended as a substitute for professional medical care. Always follow yourhealthcare professional's instructions. Dehydration The human body is comprised largely of water. If you lose more fluids than you take in, you can become dehydrated. This means there are not enough fluids in your body for it to function right. Mild dehydration can cause weakness, confusion, or muscle cramps. In extreme cases, it can lead to brain damage and even . That's why prompt treatment is crucial. Risk factors Anyone can become dehydrated. But infants, children, and older adults are at greatest risk. You aremost likely to lose fluids with severe vomiting, diarrhea, or a fever. Exercising or working hard especially in hot weather can also cause excess fluid loss. What to do Drinking liquids is the best way to prevent dehydration. Water is best, but juice or frozen pops can also help. For adults, don't use liquids that contain caffeine or alcohol to rehydrate. Your doctor may suggest electrolyte solutions for sick infants and young children. When to go to the emergency room (ER) Go to an ER right away for these symptoms: Adults Very dark urine and little urine output Dizziness, weakness, confusion, fainting Children Sunken eyes Little or no urine output (for infants, no wet diaper in 8 hours) Very dark urine Skin that doesn't bounce back quickly when pinched Crying without tears Lethargy, decreased activity, or increased sleepiness What to expect in the emergency room Your blood pressure, temperature, and heart rate will be checked. You may have blood or urine tests. The main treatment for dehydration is fluids. You may be given these to drink. Or, you may receivethem through a vein in your arm. You also may be treated for diarrhea, vomiting, or a high fever. [id number] The [employer]. [address] [place] [address]. All rights reserved. This information is not intended as a substitute for professional medical care. Always follow yourhealthcare professional's instructions. Additional Information VACCINATE! IT SAVES LIVES! Members of the community who have not yet received the COVID-19 vaccine and would like to receive it can visit one of [facility] vaccine clinics. There are many vaccine clinic locations within the [facility]. For locations and available times, please visit www.gettheshot.coronavirus.[place].gov/. It is important to note that some COVID mobile vaccine clinics are held outdoors and may be canceled in rainy or stormy conditions. To learn more about pediatric vaccinations (ages 5-11), we invite you to visit the [facility] webpage. [email or web address]/[email or web address] [email or web address] learn more about the COVID-19 vaccine, we invite you to visit the CDC website for a list of frequently asked questions. https://www.cdc.gov/coronavirus/2019-ncov/vaccines/faq.html [facility] Patient Portal Access Instructions: Stay connected with your healthcare team and access your personal medical information anytime with the [facility] Patient Portal. If you would like a full copy of your medical records please contact the [facility] Medical Records Department Tuesday through Tuesday between 8a.m. and 4:30p.m. Please follow the directions below to access the portal: 1.Access the email account you provided upon registration to the [facility].2.Look for an invitation email from [facility].3.Open the email and access the invitation link: Accept Invitation to [facility]4.Fill in the required ruelas to create your account. Sign into www.[email or web address] with your username and password that you created in the above steps to stay up to date. You can then view a summary of results, a summary of your visits, and the ability to download your summaries to your computer or send the information securely to a physician. Remember that your healthcare information is confidential, so carefully consider who you will allow to register on the [facility] Patient Portal for access to your information. You can also access the [facility] Patient Portal on the [employer] fatuma. Simply click on Health Records under [employer] and then click on the [employer] logo. HOW TO SAFELY DISPOSE OF PRESCRIPTION MEDICATIONS Please use one of the following methods to safely dispose of your unused medications. 1.Use a drug disposal kit: the drug disposal pouch allows you to safely discard your old and unuseddrugs. Ask your nurse to give you one when you are discharged.2.Visit a local take-back location: Many local pharmacies and police departments have programs that collect old and unwanted prescriptiondrugs. Call your local pharmacy or go to http://[employer].ClearAccess/4M8Vr4k to find one close to you.3.Make use of household items: Use cat litter or old coffee grounds to dispose medications if other options arenot available. Mix your drugs with these household products, seal them in an airtight container andthrow it into the garbage. Call [facility]: [phone] to be sure your drugs can be disposed of in this way. Some medicines may require a different approach.4.Never flush your medications down the toilet. IF YOU HAVE BEEN PRESCRIBED AN OPIOIDS FOR PAIN If you have been prescribed an opioid (such as hydrocodone, oxycodone or morphine), it is critical to understand the possible side effects and risks of opioid pain medications. Even when taken as directed, opioids can have several side effects including: Tolerance, meaning you might need to take more of a medication for the same pain relief. Nausea, vomiting and/or constipation. Sleepiness, dizziness, dry mouth, confusion, depression or itching. Physical dependence, meaning you have withdrawal symptoms when a medication is stopped ? this can develop within a few days. KNOW YOUR RESPONSIBILITIES It is important to know exactly how much and how often to take the opioid pain medications you are prescribed. Never take opioids in higher amounts or more often than prescribed. Do not combine opioids with alcohol or other drugs that cause drowsiness, such as benzodiazepines, also known as benzos,including diazepam and alprazolam, muscle relaxants or sleep aids. Never sell or share prescriptionopioids. This is illegal. Store opioids in a secure place and out of reach of others (including children, family, friends and visitors). The last page(s) of this document has been signed and retained as a CHART COPY Signatures Patient Education Materials High Blood Sugar (Hyperglycemia) Dehydration Medication Leaflets My discharge plan and instructions have been reviewed and explained to me and I,MONIQUE ACEVEDOd my current condition and have read and understand these discharge instructions. I have received a written copy of the plan/instructions. If I have questions, I am aware that I should contact my doctor. Patient/Commissions Specialist Signature: Date/Time: Relationship to Patient: Witness Name/Signature: Date/Time: [facility]10-17-2023 Note ORIGINAL EXAMINATION: CT OF THE HEAD WITHOUT CONTRAST 03/01/2023 8:42 pm TECHNIQUE: CT of the head was performed without the administration of intravenous contrast. Automated exposure control, iterative reconstruction, and/or weight based adjustment of the mA/kV was utilized to reduce the radiation dose to as low as reasonably achievable. COMPARISON: None. HISTORY: ORDERING SYSTEM PROVIDED HISTORY: Reason for Exam: L side paresthesias FINDINGS: BRAIN/VENTRICLES: There is no acute intracranial hemorrhage, mass effect or midline shift. No abnormal extra-axial fluid collection. The olvera-white differentiation is maintained without evidence of an acute infarct. There is no evidence of hydrocephalus. ORBITS: The visualized portion of the orbits demonstrate no acute abnormality. SINUSES: The visualized paranasal sinuses and mastoid air cells demonstrate no acute abnormality. SOFT TISSUES/SKULL: No acute abnormality of the visualized skull or soft tissues. IMPRESSION: No acute intracranial abnormality. Interpreted by: Sarabjit Bloom Preliminary Report By: Sarabjit Bloom Electronically signed By Sarabjit Bloom Dictated Date: 03/01/2023 8:57:24 PM Prelim Date: 03/01/2023 8:58:57 PM Sign Date: 03/01/2023 8:58:57 PM Ordering Provider[facility] Note Sinus rhythm Probable left atrial enlargement Electronic Signature: BRITNEY MCLEOD MD 03/01/2023 20:55:[address] [place] [address] 04-29-2023 Miscellaneous Notes* Telephone Encounter - Lupe Gutierrez APRN.CNP - 09/11/2022 2:00 PM EDT Please call the patient. I reviewed her labs. Her antibodies are negative she is confirmed TYPE 2 diabetes. This is treated with lifestyle modifications - weight loss, healthy diet, medications. Her cholesterol panel is also elevated. STRONGLY recommend she sees the ENDO Field Service Consultant for meal planning. Her A1C is elevated, for good control she needs to have 7% or less Vitamin D is very low. I sent RX for VIT D3 - 50,000 Take 1 capsule once weekly with food for 12 weeks. After she completes the prescription strength dosing, obtain over the counter Vit D3 - 5000 international unit(s) and take 1 tab daily with food. Patient's request for medication is as follows Requested Prescriptions Signed Prescriptions Disp Refills cholecalciferol, Vitamin D3, (VITAMIN D3) 1,250 mcg (50,000 unit) cap capsule 12 capsule 0 Sig: Take 1 capsule once weekly with food (for 12 weeks) Authorizing Provider: LUPE GUTIERREZ Order entered - please phone pharmacy and notify patient. Lupe Gutierrez, CONSERVATION AGENT.ACADEMIC INTERN Component Latest Ref Rng & Units 09/08/2022 Glucose 74 - 99 mg/dL 182 (H) BUN 7 - 21 mg/dL 8 Creatinine 0.58 - 0.96 mg/dL 0.55 (L) Sodium 136 - 144 mmol/L 135 (L) Potassium 3.7 - 5.1 mmol/L 4.2 Chloride 97 - 105 mmol/L 101 CO2 22 - 30 mmol/L 21 (L) Anion Gap 9 - 18 mmol/L 13 eGFR >=60 mL/min/1.73m 123 Total Cholesterol, Nonfasting <200 mg/dL 236 (H) Triglycerides, Nonfasting <150 mg/dL 156 (H) HDL Cholesterol, Nonfasting >39 mg/dL 45 LDL Cholesterol, Nonfasting <100 mg/dL 160 (H) Non HDL Cholesterol, Nonfasting <130 mg/dL 191 (H) VLDL Cholesterol, Nonfasting <30 mg/dL 31 (H) Total Chol/HDL Ratio, Nonfasting <5.10 mg/dL 5.24 (H) LDL/HDL Ratio, Nonfasting <2.54 mg/dL 3.56 (H) Creatinine, Ur Random (UCRR) 20.0 - 300.0 mg/dL 128.6 Albumin, Urine Random mg/L <12.0 Albumin/Creat Ratio <30 mg/g <9 Glutamic Acid Decarboxylas Ab Qualitative Negative Negative Glutamic Acid Decarboxylase Ab <=5.0 IU/mL <5.0 Hemoglobin A1C 4.3 - 5.6 % 9.6 (H) Estimated Average Glucose mg/dL 229 Islet Cell Ab <1:4 <1:4 Vitamin B12 232 - 1,245 pg/mL 317 Vitamin D 25 Hydroxy 31.0 - 80.0 ng/mL 12.5 (L) Microsomal Antibody <5.6 IU/mL <3.0 C-Peptide 0.81 - 3.85 ng/mL 2.90 documented in [facility] encounterL[facility] NoteHNO ID: [id number] Author: Lupe Gutierrez APRN.CNP Service: ? Author Type: Nurse Practitioner Type: Progress Notes Filed: 09/09/2022 9:04 AM Note Text: NEW CONSULT OFFICE PROGRESS NOTE Reason for Consultation: DM Type 2 Referring Physician: SELF My final recommendations will be communicated back to the requesting physician by way of shared Medical record or letter via US mail. HISTORY OF PRESENT ILLNESS; Monique Acevedo is a 36 year old FEMALE is presenting as a new patient to me regarding DM Type 2. She was initially diagnosed with diabetes in 2016 Previously patient of [facility], [facility] for gestational DM, last visit 09/12/2014 Initially managed with diet Lost weight Regained weight since early this year Had hyperglycemia of 550 earlier - ER was in past week Ozempic/prandial/basal insulin started by PCP past several weeks She does have a family history of diabetes mellitus in her grandparents on father/mother side The patient has no known microvascular complications of diabetes. Monique has no know macrovascular complications of diabetes.. DM Education No Knows how to carb count minimally - tries to pay attention DIETARY HISTORY: Breakfast: skips OR will drink protein shake - [employer] brand protein shake. OR slim fast Lunch tuna on wheat OR egg salad w fruit/veggie OR burrito from [employer] - drinks diet pop, water Dinner spaghetti OR vegetable/protein/starch OR previously eating a fast food meals more often Snacks gets cravings for straight sugar, will eat chocolate or other sweets Drinks protein shake, water, occ diet pop and coffee from [employer] Exercise: active at work, when at home will walk dog CURRENT DM MEDS NONE SMBG Type of Monitor: Other Frequency of Monitoring: FREESTYLE WILLIAN times a day BG Values: Breakfast: 255-293 Lunch: 252 - 286 Dinner: 250-260 Bed-time: 250-260 7 day average 230 14 day average 233 30 days average 233 90 days average 233 Hypoglycemia: no Diet: Counts Carbs Exercise: as per above DM REVIEW OF SYSTEMS Last Eye Exam : 2 years Last Podiatry Exam: no issues Cardiorespiratory: negative, denies chest pain, pressure Claudication: no Dyslipidemia: No High Blood Pressure: No CURRENT LABS Component Latest Ref Rng AND Units 06/04/2022 Hemoglobin A1C 4.3 - 5.6 % 9.4 (H) Estimated Average Glucose mg/dL 223 Component Latest Ref Rng AND Units 02/03/2021 Hemoglobin A1C 4.3 - 5.6 % 6.3 (H) Estimated Average Glucose mg/dL 134 PAST MEDICAL HISTORY Diagnosis Date Anxiety Diabetes (HCC) diagnosed 2012 Infection of tooth 2014 Insulin dependent gestational diabetes mellitus, antepartum 10/22/2014 Major depressive disorder, single episode, unspecified remote 2004 Migraine, unspecified, without mention of intractable migraine without mention of status migrainosus no aura Obesity, unspecified PTSD (post-traumatic stress disorder) Tobacco use disorder quit 08/2014 Tobacco use in , antepartum 10/22/2014 Triplet in third trimester 10/22/2014 Unspecified asthma(493.90) occasional inhaler use Uterine rupture 06/18/2014 History of uterine rupture, per patient, diagnosed at the time of her second . Third was scheduled at 36 weeks PAST SURGICAL HISTORY Procedure Laterality Date DELIVERY ONLY 2004,2005, 2012,2014 , low cervical TUBAL LIGATION 2014 FAMILY HISTORY Problem Relation Age of Onset Asthma Mother Headache Mother migraine COPD Mother Heart Mother other (Other - Polio) Father Asthma Sister Psychiatry Sister bipolar, anxiety, OCD No Known Problems Brother Asthma Maternal Grandmother Hypertension Maternal Grandmother Coronary Artery Disease Maternal Grandfather Social History Tobacco Use Smoking status: Every Day Packs/day: 1.00 Years: 11.00 Pack years: 11.00 Types: Cigarettes Last attempt to quit: 08/17/2014 Years since quittin.0 Smokeless tobacco: Never Vaping Use Vaping Use: Never used Substance Use Topics Alcohol use: Yes Comment: socially Drug use: Not Currently Frequency: 1.0 times per week Types: Marijuana Comment: once daily or+ Current Outpatient Medications Medication Sig miconazole (MONISTAT 7) 2 % vaginal cream Use 1 Applicator vaginally as directed. 1 applicator vaginally at bedtime every other night x 2 weeks. L. acidophilus-L. rhamnosus 15 billion cell cap Take 1 capsule by mouth once daily. FLORAJEN WOMEN. If on antibiotic, take at least 1-2 hours before or after antibiotic. KEEP REFRIGERATED amoxicillin (AMOXIL) 875 mg tablet take 1 tablet by mouth twice a day for 5 days --TAKE WITH A PROBIOTIC mupirocin (BACTROBAN) 2 % ointment Apply to affected area three times daily. ibuprofen (MOTRIN) 600 mg tablet Take by mouth. No current facility-administered medications for this visit. ALLERGIES No Known Allergies REVIEW OF SYSTEMS - POSITIVES (more content not included)...[facility]04-26-2023 Instructions* Patient Instructions* Lupe Gutierrez APRN.CNP - 09/08/2022 2:50 PM EDT LANTUS Inject 20 units once daily HUMALOG (LISPRO) Inject 8 units with meals PLUS sliding scale as per below as needed Sliding Scale Insulin Dosing Sliding Scale 1 (1 unit for every 50 mg/dL > 150 mg/dL) SUPPLEMENTAL INSULIN - PRE MEAL If Blood Glucose (mg/dL) is < 150 Give 0 units 151-200 Give 1 unit 201-250 Give 2 units 251-300 Give 3 units 301-350 Give 4 units 351-400 Give 5 units >400 Give 6 units, call physician if blood glucose does not improve. documented in this encounterL[facility]04-26-[facility]23 History of Present illness Narrative* Lupe Gutierrez APRN.CNP - 09/08/2022 2:00 PM EDT NEW CONSULT OFFICE PROGRESS NOTE Reason for Consultation: DM Type 2 Referring Physician: SELF My final recommendations will be communicated back to the requesting physician by way of shared Medical record or letter via US mail. HISTORY OF PRESENT ILLNESS; Monique Acevedo is a 36 year old FEMALE is presenting as a new patient to me regarding DM Type 2. She was initially diagnosed with diabetes in 2016 Previously patient of [facility] RUCKER MD, ENDO for gestational DM, last visit 09/12/2014 Initially managed with diet Lost weight Regained weight since early this year Had hyperglycemia of 550 earlier - ER was in past week Ozempic/prandial/basal insulin started by PCP past several weeks She does have a family history of diabetes mellitus in her grandparents on father/mother side The patient has no known microvascular complications of diabetes. Monique has no know macrovascular complications of diabetes.. DM Education No Knows how to carb count minimally - tries to pay attention DIETARY HISTORY: Breakfast: skips OR will drink protein shake - [employer] brand protein shake. OR slim fast Lunch tuna on wheat OR egg salad w fruit/veggie OR burrito from [employer] - drinks diet pop, water Dinner spaghetti OR vegetable/protein/starch OR previously eating a fast food meals more often Snacks gets cravings for straight sugar, will eat chocolate or other sweets Drinks protein shake, water, occ diet pop and coffee from [employer] Exercise: active at work, when at home will walk dog CURRENT DM MEDS NONE SMBG Type of Monitor: Other Frequency of Monitoring: FREESTYLE WILLIAN times a day BG Values: Breakfast: 255-293 Lunch: 252 - 286 Dinner: 250-260 Bed-time: 250-260 7 day average 230 14 day average 233 30 days average 233 90 days average 233 Hypoglycemia: no Diet: Counts Carbs Exercise: as per above DM REVIEW OF SYSTEMS Last Eye Exam : 2 years Last Podiatry Exam: no issues Cardiorespiratory: negative, denies chest pain, pressure Claudication: no Dyslipidemia: No High Blood Pressure: No CURRENT LABS Component Latest Ref Rng & Units 06/04/2022 Hemoglobin A1C 4.3 - 5.6 % 9.4 (H) Estimated Average Glucose mg/dL 223 Component Latest Ref Rng & Units 02/03/2021 Hemoglobin A1C 4.3 - 5.6 % 6.3 (H) Estimated Average Glucose mg/dL 134 PAST MEDICAL HISTORY Diagnosis Date Anxiety Diabetes (HCC) diagnosed 2012 Infection of tooth 2014 Insulin dependent gestational diabetes mellitus, antepartum 10/22/2014 Major depressive disorder, single episode, unspecified remote 2004 Migraine, unspecified, without mention of intractable migraine without mention of status migrainosus no aura Obesity, unspecified PTSD (post-traumatic stress disorder) Tobacco use disorder quit 08/2014 Tobacco use in , antepartum 10/22/2014 Triplet in third trimester 10/22/2014 Unspecified asthma(493.90) occasional inhaler use Uterine rupture 06/18/2014 History of uterine rupture, per patient, diagnosed at the time of her second c- section. Third was scheduled at 36 weeks PAST SURGICAL HISTORY Procedure Laterality Date DELIVERY ONLY 2004,2005, 2012,2014 , low cervical TUBAL LIGATION 2014 FAMILY HISTORY Problem Relation Age of Onset Asthma Mother Headache Mother migraine COPD Mother Heart Mother other (Other - Polio) Father Asthma Sister Psychiatry Sister bipolar, anxiety, OCD No Known Problems Brother Asthma Maternal Grandmother Hypertension Maternal Grandmother Coronary Artery Disease Maternal Grandfather Social History Tobacco Use Smoking status: Every Day Packs/day: 1.00 Years: 11.00 Pack years: 11.00 Types: Cigarettes Last attempt to quit: 08/17/2014 Years since quittin.0 Smokeless tobacco: Never Vaping Use Vaping Use: Never used Substance Use Topics Alcohol use: Yes Comment: socially Drug use: Not Currently Frequency: 1.0 times per week Types: Marijuana Comment: once daily or+ Current Outpatient Medications Medication Sig miconazole (MONISTAT 7) 2 % vaginal cream Use 1 Applicator vaginally as directed. 1 applicator vaginally at bedtime every other night x 2 weeks. L. acidophilus-L. rhamnosus 15 billion cell cap Take 1 capsule by mouth once daily. FLORAJEN WOMEN.If on antibiotic, take at least 1-2 hours before or after antibiotic. KEEP REFRIGERATED amoxicillin (AMOXIL) 875 mg tablet take 1 tablet by mouth twice a day for 5 days --TAKE WITH A PROBIOTIC mupirocin (BACTROBAN) 2 % ointment Apply to affected area three times daily. ibuprofen (MOTRIN) 600 mg tablet Take by mouth. No current facility-administered medications for this visit. ALLERGIES No Known Allergies REVIEW OF SYSTEMS - POSITIVES IN BOLD GENERAL:No weight loss, malaise or fevers HEENT:Negative for frequent or significant headaches, No changes in hearing or vision, no nose bleeds or other nasal problems NECK:Negative for lumps, goiter, pain and significant neck swelling RESPIRATORY: Negative for cough, hemoptysis, wheezing, COPD, dyspnea or shortness of breath CARDIOVASCULAR: Negative for chest pain, leg swelling, hypertension, CHF or palpitations PHYSICAL EXAMINATION: LMP 04/16/2022 BP (P) 122/72 (BP Site: Left Arm, BP Position: Sitting, BP Cuff Size: Large Adult) Pulse (P) 90 Wt (P) 112.5 kg (248 lb) LMP 04/16/2022 BMI (P) 38.84 kg/m General appearance: Well appearing, alert, in no acute distress, well-hydrated, well nourished. Skin: Skin color, texture, turgor normal, no suspicious rashes or lesions Head: Normocephalic, no masses, lesions, tenderness or abnormalities Eyes: SEBAS Neck: thyroid symmetric to inspection Acanthosis: none noted Extremities: Edema: none Neuro: Negative., Oriented X 3 ASSESSMENT: (E11.65) Poorly controlled type 2 diabetes mellitus (HCC) (primary encounter diagnosis) Comment: RECOMMEND USING 1 for 8 I/C ratio, no change to basal LANTUS Inject 20 units once daily HUMALOG (LISPRO) Inject 8 units with meals PLUS sliding scale as per below as needed Sliding Scale Insulin Dosing Sliding Scale 1 (1 unit for every 50 mg/dL > 150 mg/dL) SUPPLEMENTAL INSULIN - PRE MEAL If Blood Glucose (mg/dL) is < 150 Give 0 units 151-200 Give 1 unit 201-250 Give 2 units 251-300 Give 3 units 301-350 Give 4 units 351-400 Give 5 units >400 Give 6 units, call physician if blood glucose does not improve. Recommended diet: Low carbohydrate and Low saturated fat, low simple sugar, high fiber diet Exercise minimally 150 minutes per week, increase as tolerated. Adequate hydration - 1/2 body wgt in oz of water daily, unless fluid restriction applies. I instructed the patient to monitor blood sugars 4 times per day If blood sugars are persistently high or low, to call our office. Patient to continue to follow up with her PCP and with other consultants regarding her other medical problems. Plan: COMP METABOLIC PANEL, LIPID PANEL, NONFASTING, ALBUMIN/CREAT RATIO RND UR, HGB A1C Lupe Gutierrez CNP documented in this encounterLake[facility]04-12-[facility]23 Hospital Discharge instructions Patient Education 08/25/2022 15:06:49 Hyperglycemia (High Blood Sugar) Hyperglycemia (High Blood Sugar) Too much glucose (sugar) in your blood is called hyperglycemia or high blood sugar. High blood sugar can lead to a dangerous condition called ketoacidosis. In severe cases, it can lead to coma. Possible Causes of Hyperglycemia Inadequate treatment plan for diabetes Being sick Being under stress Taking certain medications, such as steroids Eating too much food, especially carbohydrates Being less active than usual Not taking enough diabetes medication Symptoms of Hyperglycemia Hyperglycemia may not cause symptoms. If you do have symptoms, they may include: Thirst Frequent need to urinate Feeling tired Nausea Itchy, dry skin Blurry vision Fast breathing Weakness Dizziness Wounds or skin infections that don t heal Unexplained weight loss if hyperglycemia lasts for more than a few days What You Should Do Check your blood sugar. Drink plenty of sugar-free, caffeine-free liquids such as water. Don t drink fruit juice. Check your blood sugar again every 4 hours. If you take insulin or diabetes medications, follow your sick-day plan for taking medication. Call your healthcare provider if you are not able to eat. Check your blood or urine for ketones as directed. Call your health care provider if your blood sugar and ketones do not return to your target range. Preventing High Blood Sugar To help keep your blood sugar from getting too high: Control stress. When you're ill, follow your sick-day plan. Follow your meal plan. Eat only the amount of food on your meal plan Follow your exercise plan. Take your insulin or diabetes medications as directed by you health care team. Also test your bloodsugar as directed. If the plan is not working for you, discuss it with your doctor. Other Things to Do Carry a medical ID card or wear a medical alert bracelet. It should say that you have diabetes. It should also say what to do in case you pass out or go into a coma. Make sure family, friends, and coworkers know the signs of high blood sugar. Tell them what to do if your blood sugar gets very high and you can t help yourself. Talk to your health care team about other things you can do to prevent high blood sugar. Special note: Drink plenty of sugar-free and caffeine-free liquids when you feel symptoms of hyperglycemia. Call your doctor if you keep having episodes of hyperglycemia. [id number] [employer]. [address] [place] [address], [place] [address]. All rights reserved. This information is not intended as a substitute for professional medical care. Always follow yourhealthcare professional's instructions. Follow Up Care 08/25/2022 13:43:48 With:AXEL ALFORD DO Address: [address] [id number] [place] [address] [phone] When:2-4 days [facility] 04-12-2023 Note Discharge Instructions Thank you for allowing [facility] to assist you with your healthcare needs. The following is importantdischarge information regarding your hospital visit. Diagnosis from Today's Visit Hyperglycemia Hyperglycemia What to Do Next Instructions from Your Care Team No qualifying data available. Post Acute Orders No qualifying data available. You Need to Schedule the Following Appointments Follow Up with AXEL ALFORD DO When Within 2-4 days Where: [id number] [place] [address] [phone] Allergies NKA Medications Please ask your primary doctor or pharmacist before taking any other medication not listed, including over the counter drugs, herbal medications, vitamins and or supplements as they may interact withyour home medications. What How Much When Why Instructions Last Dose New insulin glargine (Lantus 100 units/ mL10 ml vial solution) 10 unit(s) Subcutaneous Daily at bedtime Hyperglycemia Printed Prescription New insulin lispro (HumaLOG) (HumaLOG KwikPen 100 units/ mL injectable PEN) 5 unit(s) Subcutaneous Three (3) times a day before meals Hyperglycemia Printed Prescription Unchanged semaglutide (Ozempic 2 mg/ 1.5 mL (0.25 mg or 0.5 mg dose) subcutaneous solution) 0.25 Milligram Subcutaneous Every week rotate injection sites Please take this list to your next doctor s visit. Bring all medications you take, including over the counter medications, herbals and other supplements with you to your doctor s visit. Patients and families are reminded to discard old lists and to update any records with all medication providers or retail pharmacies. Medication Leaflets insulin glargine (IN pollard joseph GLAR shahbaz) Basaglar KwikPen, Lantus, Lantus Solostar Pen, Semglee, Toujeo SoloStar What is the most important information I should know about insulin glargine? Never share an injection pen, even if you changed the needle. What is insulin glargine? Insulin glargine is a long-acting insulin that starts to work several hours after injection and keeps working evenly for 24 hours. Insulin glargine is used to improve blood sugar control in people with diabetes mellitus. Toujeo is for use in adults with type 1 or type 2 diabetes. Basaglar, Lantus, and Semglee are for use in adults with type 1 or 2 diabetes and in children at least 6 years old with type 1 diabetes (not type 2). For type 1 diabetes, insulin glargine is used together with a short-acting insulin given before meals. Insulin glargine may also be used for purposes not listed in this medication guide. What should I discuss with my healthcare provider before using insulin glargine? You should not use this medicine if you are allergic to insulin, or if you are having an episode ofhypoglycemia (low blood sugar) or diabetic ketoacidosis (call your doctor for treatment). Insulin glargine is not approved for use by anyone younger than 6 years old, and some brands are for use only in adults. Do not use this medicine to treat type 2 diabetes in a child of any age. Tell your doctor if you have ever had: liver or kidney disease; or heart failure or other heart problems. Tell your doctor if you also take pioglitazone or rosiglitazone (sometimes contained in combinations with glimepiride or metformin). Taking certain oral diabetes medicines while you are using insulinmay increase your risk of serious heart problems. Tell your doctor if you are or . Follow your doctor's instructions about using this medicine if you are or you become . Controlling diabetes is very important during . How should I use insulin glargine? Follow all directions on your prescription label and read all medication guides or instruction sheets. Use the medicine exactly as directed. Insulin glargine is injected under the skin, usually once per day at the same time of day. When treating type 1 diabetes, use your short-acting insulin before meals as directed by your doctor. Insulin glargine must not be given with an insulin pump, or mixed with other insulins. Do not inject insulin glargine into a vein or a muscle. Ask your doctor or pharmacist if you don't understand how to use an injection. Prepare an injection only when you are ready to give it. Call your pharmacist if the medicine lookscloudy, has changed colors, or has particles in it. Your healthcare provider will show you where to inject insulin glargine. Do not inject into the same place two times in a row. Avoid injecting into skin that is damaged, tender, bruised, pitted, thickened, scaly, or has a scaror hard lump. Toujeo contains 300 units of insulin glargine per milliliter (mL), which is 3 times stronger than brands that contain 100 units per mL. Your dose needs may change if you switch to a different brand, strength, or form of this medicine. Avoid medication errors by using only the medicine your doctor prescribes. If you use an injection pen, use only the injection pen that comes with insulin glargine. Attach a new needle before each use. Do not transfer the insulin from the pen into a syringe. Never share an injection pen, even if you changed the needle. Sharing these devices can pass infections from person to person. Blood sugar can be affected by stress, illness, surgery, exercise, alcohol use, or skipping meals. Low blood sugar (hypoglycemia) can make you feel very hungry, dizzy, irritable, or shaky. To quickly treat hypoglycemia, eat or drink hard candy, crackers, raisins, fruit juice, or non-diet soda. Your doctor may prescribe glucagon injection in case of severe hypoglycemia. Tell your doctor if you have frequent symptoms of high blood sugar (hyperglycemia) such as increased thirst or urination. Ask your doctor before changing your medication dosage. Keep this medicine in its original container protected from heat and light. Do not freeze insulin or store it near the cooling element in a refrigerator. Throw away any insulin that has been frozen. Storing unopened (not in use) insulin glargine: Refrigerate and use until expiration date; or (Basaglar, Lantus, or Semglee) Store at room temperature (below 86 degrees Fahrenheit) and use within 28 days. Storing opened (in use) insulin glargine: Store the vial in a refrigerator or at room temperature and use within 28 days. Store the injection pen at room temperature (do not refrigerate) and use within 28 days. Store Toujeo at room temperature below 86 F (do not refrigerate) and use within 56 days. Do not store an injection pen with the needle attached. Do not reuse a needle or syringe. Place them in a puncture-proof 'sharps' container and dispose of it following state or local laws. Keep out of the reach of children and pets. Wear a medical alert tag or carry an ID card to let others know you have diabetes. What happens if I miss a dose? Call your doctor for instructions if you miss a dose. Do not use more than one dose in a 24-hour period unless your doctor tells you to. Get your prescription refilled before you run out of medicine completely. What happens if I overdose? Seek emergency medical attention or call the Poison Help line at . Insulin overdose can cause severe hypoglycemia. Symptoms include drowsiness, confusion, blurred vision, numbness or tingling in your mouth, trouble speaking, muscle weakness, clumsy or jerky movements, seizure (convulsions), or loss of consciousness. What should I avoid while using insulin glargine? Avoid driving or hazardous activity until you know how this medicine will affect you. Your reactions could be impaired. Avoid medication errors by always checking the medicine label before injecting your insulin. Avoid drinking alcohol or using medicines that contain alcohol. It may interfere with your diabetestreatment. What are the possible side effects of insulin glargine? Get emergency medical help if you have signs of insulin allergy: redness or swelling where an injection was given, itchy skin rash over the entire body, trouble breathing, fast heartbeats, feeling like you might pass out, or swelling in your tongue or throat. Call your doctor at once if you have: rapid weight gain, swelling in your feet or ankles; shortness of breath; or low blood potassium--leg cramps, constipation, irregular heartbeats, fluttering in your chest, increased thirst or urination, numbness or tingling, muscle weakness or limp feeling. Common side effects may include: low blood sugar; swelling, weight gain; allergic reaction, itching, rash; or thickening or hollowing of the skin where you injected the medicine. This is not a complete list of side effects and others may occur. Call your doctor for medical advice about side effects. You may report side effects to FDA at 5-930-MIM-2627. What other drugs will affect insulin glargine? Many drugs can affect your blood sugar and may also affect insulin glargine. This includes prescription and wbep-ysm-kpzdtks medicines, vitamins, and herbal products. Tell your doctor about all othermedicines you use. Not all possible interactions are listed here. Where can I get more information? Your pharmacist can provide more information about insulin glargine. Remember, keep this and all other medicines out of the reach of children, never share your medicines with others, and use this medication only for the indication prescribed. Every effort has been made to ensure that the information provided by [employer]. [employer]') is accurate, up-to-date, and complete, but no guarantee is made to that effect. Drug information contained herein may be time sensitive. [employer] information has been compiled for use by healthcare practitioners and consumers in the [place] and therefore [employer] does not warrant that uses outside of the [place] are appropriate, unless specifically indicated otherwise. [employer] drug information does not endorse drugs, diagnose patients or recommend therapy. [employer] drug information isan informational resource designed to assist licensed healthcare practitioners in caring for their p atients and/or to serve consumers viewing this service as a supplement to, and not a substitute for, the expertise, skill, knowledge and judgment of healthcare practitioners. The absence of a warningfor a given drug or drug combination in no way should be construed to indicate that the drug or drug combination is safe, effective or appropriate for any given patient. [employer] does not assume any responsibility for any aspect of healthcare administered with the aid of information [employer] provides. The information contained herein is not intended to cover all possible uses, directions, precautions, warnings, drug interactions, allergic reactions, or adverse effects. If you have questions about the drugs you are taking, check with your doctor, nurse or pharmacist. Copyright 7702-7021 [employer]. Version: 15.02. Revision Date: 07/03/2021. insulin lispro (IN gisela joseph BOBY pro) Admelog, HumaLOG, Lyumjev What is the most important information I should know about insulin lispro? Never share an injection pen, cartridge, or syringe with another person, even if the needle has been changed. What is insulin lispro? Insulin is a hormone that works by lowering levels of glucose (sugar) in the blood. Insulin lispro is a fast-acting insulin that starts to work about 15 minutes after injection, peaks in about 1 hour, and keeps working for 2 to 4 hours. Insulin lispro is used to improve blood sugar control in adults and children with diabetes mellitus. Admelog and HumaLOG are used to treat type 2 diabetes in adults, or type 1 diabetes in adults and children who are at least 3 years old. Lyumjev is not approved for use by anyone younger than 18 years old. Insulin lispro may also be used for purposes not listed in this medication guide. What should I discuss with my healthcare provider before using insulin lispro? You should not use insulin lispro if you are allergic to it, or if you are having an episode of hypoglycemia (low blood sugar). Insulin lispro should not be given to a child younger than 3 years old. Insulin lispro should not be used to treat type 2 diabetes in a child of any age. Tell your doctor if you have ever had: liver or kidney disease; heart problems; or low levels of potassium in your blood (hypokalemia). Tell your doctor if you also take medicine that contains pioglitazone or rosiglitazone. Taking certain oral diabetes medicines while you are using insulin may increase your risk of serious heart problems. Tell your doctor if you are or . Follow your doctor's instructions about using insulin if you are or you become . Controlling diabetes is very important during , and having high blood sugar may cause complications in both the mother and the baby. How should I use insulin lispro? Follow all directions on your prescription label and read all medication guides or instruction sheets. Use the medicine exactly as directed. Insulin lispro is injected under the skin with a syringe and needle, an injection pen, or with an infusion pump. A healthcare provider will teach you how to properly use this medicine by yourself. Read and carefully follow any Instructions for Use provided with your medicine. Ask your doctor or pharmacist if you do not understand these instructions. Prepare your injection only when you are ready to give it. Do not use if the medicine looks cloudy,has changed colors or has particles in it. Call your pharmacist for new medicine. Admelog or HumaLOG are given within 15 minutes before a meal, or right after eating. Lyumjev is given at the start of a meal or within 20 minutes after eating. Your healthcare provider will show you where on your body to inject insulin lispro. Use a differentplace each time you give an injection. Do not inject into the same place two times in a row. Do notinject into skin that is damaged, tender, bruised, pitted, thickened, scaly, or has a scar or hard lump. Concentrated insulin lispro (200 units) must not be given with an insulin pump, or mixed with otherinsulins. Do not transfer insulin lispro from an injection pen to a syringe or a severe overdose could occur. Never share an injection pen, cartridge, or syringe with another person, even if the needle has been changed. Sharing these devices can allow infections or disease to pass from one person to another. You may have low blood sugar (hypoglycemia) and feel very hungry, dizzy, irritable, confused, anxious, or shaky. To quickly treat hypoglycemia, eat or drink a fast-acting source of sugar (fruit juice, hard candy, crackers, raisins, or non-diet soda). Your doctor may prescribe a glucagon injection kit in case you have severe hypoglycemia. Be sure your family or close friends know how to give you this injection in an emergency. Also watch for signs of high blood sugar (hyperglycemia) such as increased thirst or urination. Blood sugar levels can be affected by stress, illness, surgery, exercise, alcohol use, or skipping meals. Ask your doctor before changing your dose or medication schedule. Keep this medicine in its original container protected from heat and light. Do not freeze insulin or store it near the cooling element in a refrigerator. Throw away any insulin that has been frozen. Storing unopened (not in use) insulin lispro: Refrigerate and use until expiration date; or Store at room temperature and use within 28 days. Storing opened (in use) insulin lispro: Store the vial in a refrigerator or at room temperature and use within 28 days. Store the cartridge or injection pen (without a needle attached) at room temperature and use [id number] days. Use a needle and syringe only once and place them in a puncture-proof 'sharps' container. Follow state or local laws about how to dispose of this container. Keep it out of the reach of children and pets. What happens if I miss a dose? Since insulin lispro is used with meals, you may not be on a timed dosing schedule. Whenever you use insulin lispro, follow the directions for your specific brand about whether to use the medicine before of after you eat. Do not use two doses at one time. What happens if I overdose? Seek emergency medical attention or call the Poison Help line at . Insulin overdose can cause life-threatening hypoglycemia. Symptoms include drowsiness, confusion, blurred vision, numbness or tingling in your mouth, trouble speaking, muscle weakness, clumsy or jerky movements, seizure (convulsions), or loss of consciousness. What should I avoid while using insulin lispro? Insulin can cause low blood sugar. Avoid driving or operating machinery until you know how this medicine will affect you. Avoid medication errors by always checking the medicine label before injecting your insulin. Avoid drinking alcohol. What are the possible side effects of insulin lispro? Get emergency medical help if you have signs of insulin allergy: redness or swelling where an injection was given, itchy skin rash over the entire body, trouble breathing, fast heartbeats, feeling like you might pass out, or swelling in your tongue or throat. Call your doctor at once if you have: weight gain, swelling in your hands or feet, feeling short of breath; low blood sugar--headache, hunger, sweating, irritability, dizziness, fast heart rate, and feeling anxious or shaky; or low potassium--leg cramps, constipation, irregular heartbeats, fluttering in your chest, increased thirst or urination, numbness or tingling, muscle weakness or limp feeling. Common side effects may include: low blood sugar; weight gain; swelling in your hands or feet; itching; or thickening or hollowing of the skin where you injected the medicine. This is not a complete list of side effects and others may occur. Call your doctor for medical advice about side effects. You may report side effects to FDA at 6-752-SAF-4409. What other drugs will affect insulin lispro? Many other medicines can affect your blood sugar, and some medicines can increase or decrease the effects of insulin. Some drugs can also cause you to have fewer symptoms of hypoglycemia, making it harder to tell when your blood sugar is low. Tell each of your health care providers about all medicines you use now and any medicine you start or stop using. This includes prescription and onvh-tib-aseiuog medicines, vitamins, and herbal products. Where can I get more information? Your pharmacist can provide more information about insulin lispro. Remember, keep this and all other medicines out of the reach of children, never share your medicines with others, and use this medication only for the indication prescribed. Every effort has been made to ensure that the information provided by [employer]') is accurate, up-to-date, and complete, but no guarantee is made to that effect. Drug information contained herein may be time sensitive. [employer] information has been compiled for use by healthcare practitioners and consumers in the [place] and therefore [employer] does not warrant that uses outside of the [place] are appropriate, unless specifically indicated otherwise. [employer] drug information does not endorse drugs, diagnose patients or recommend therapy. [employer] drug information isan informational resource designed to assist licensed healthcare practitioners in caring for their p atients and/or to serve consumers viewing this service as a supplement to, and not a substitute for, the expertise, skill, knowledge and judgment of healthcare practitioners. The absence of a warningfor a given drug or drug combination in no way should be construed to indicate that the drug or drug combination is safe, effective or appropriate for any given patient. [employer] does not assume any responsibility for any aspect of healthcare administered with the aid of information [employer] provides. The information contained herein is not intended to cover all possible uses, directions, precautions, warnings, drug interactions, allergic reactions, or adverse effects. If you have questions about the drugs you are taking, check with your doctor, nurse or pharmacist. Copyright 8516-9955 [employer]. Version: 9.01. Revision Date: 11/21/2019. Education Materials Hyperglycemia (High Blood Sugar) Too much glucose (sugar) in your blood is called hyperglycemia or high blood sugar. High blood sugar can lead to a dangerous condition called ketoacidosis. In severe cases, it can lead to coma. Possible Causes of Hyperglycemia Inadequate treatment plan for diabetes Being sick Being under stress Taking certain medications, such as steroids Eating too much food, especially carbohydrates Being less active than usual Not taking enough diabetes medication Symptoms of Hyperglycemia Hyperglycemia may not cause symptoms. If you do have symptoms, they may include: Thirst Frequent need to urinate Feeling tired Nausea Itchy, dry skin Blurry vision Fast breathing Weakness Dizziness Wounds or skin infections that don t heal Unexplained weight loss if hyperglycemia lasts for more than a few days What You Should Do Check your blood sugar. Drink plenty of sugar-free, caffeine-free liquids such as water. Don t drink fruit juice. Check your blood sugar again every 4 hours. If you take insulin or diabetes medications, follow your sick-day plan for taking medication. Call your healthcare provider if you are not able to eat. Check your blood or urine for ketones as directed. Call your health care provider if your blood sugar and ketones do not return to your target range. Preventing High Blood Sugar To help keep your blood sugar from getting too high: Control stress. When you're ill, follow your sick-day plan. Follow your meal plan. Eat only the amount of food on your meal plan Follow your exercise plan. Take your insulin or diabetes medications as directed by you health care team. Also test your bloodsugar as directed. If the plan is not working for you, discuss it with your doctor. Other Things to Do Carry a medical ID card or wear a medical alert bracelet. It should say that you have diabetes. It should also say what to do in case you pass out or go into a coma. Make sure family, friends, and coworkers know the signs of high blood sugar. Tell them what to do if your blood sugar gets very high and you can t help yourself. Talk to your health care team about other things you can do to prevent high blood sugar. Special note: Drink plenty of sugar-free and caffeine-free liquids when you feel symptoms of hyperglycemia. Call your doctor if you keep having episodes of hyperglycemia. [phone] The [employer]. [address] [place] [address], [place] [address]. All rights reserved. This information is not intended as a substitute for professional medical care. Always follow yourhealthcare professional's instructions. Additional Information VACCINATE! IT SAVES LIVES! Members of the community who have not yet received the COVID-19 vaccine and would like to receive it can visit one of [facility] vaccine clinics. There are many vaccine clinic locations within the [facility]. For locations and available times, please visit www.gettheshot.coronavirus.[place].gov/. It is important to note that some COVID mobile vaccine clinics are held outdoors and may be canceled in rainy or stormy conditions. To learn more about pediatric vaccinations (ages 5-11), we invite you to visit the [facility] webpage. [email or web address]/[email or web address] [email or web address] learn more about the COVID-19 vaccine, we invite you to visit the CDC website for a list of frequently asked questions. https://www.cdc.gov/coronavirus/2019-ncov/vaccines/faq.html [facility] Patient Portal Access Instructions: Stay connected with your healthcare team and access your personal medical information anytime with the [facility] Patient Portal. If you would like a full copy of your medical records please contact the [facility] Medical Records Department Tuesday through Tuesday between 8a.m. and 4:30p.m. Please follow the directions below to access the portal: 1.Access the email account you provided upon registration to the hospital.2.Look for an invitation email from [facility].3.Open the email and access the invitation link: Accept Invitation to [facility]4.Fill in the required ruelas to create your account. Sign into www.[email or web address] with your username and password that you created in the above steps to stay up to date. You can then view a summary of results, a summary of your visits, and the ability to download your summaries to your computer or send the information securely to a physician. Remember that your healthcare information is confidential, so carefully consider who you will allow to register on the [facility] Patient Portal for access to your information. You can also access the [facility] Patient Portal on the [employer] fatuma. Simply click on Health Records under [employer] and then click on the [employer] logo. HOW TO SAFELY DISPOSE OF PRESCRIPTION MEDICATIONS Please use one of the following methods to safely dispose of your unused medications. 1.Use a drug disposal kit: the drug disposal pouch allows you to safely discard your old and unuseddrugs. Ask your nurse to give you one when you are discharged.2.Visit a local take-back location: Many local pharmacies and police departments have programs that collect old and unwanted prescriptiondrugs. Call your local pharmacy or go to http://[employer] Entourage.ClearAccess/1R1Oy0n to find one close to you.3.Make use of household items: Use cat litter or old coffee grounds to dispose medications if other options arenot available. Mix your drugs with these household products, seal them in an airtight container andthrow it into the garbage. Call [facility]: [phone] to be sure your drugs can be disposed of in this way. Some medicines may require a different approach.4.Never flush your medications down the toilet. IF YOU HAVE BEEN PRESCRIBED AN OPIOIDS FOR PAIN If you have been prescribed an opioid (such as hydrocodone, oxycodone or morphine), it is critical to understand the possible side effects and risks of opioid pain medications. Even when taken as directed, opioids can have several side effects including: Tolerance, meaning you might need to take more of a medication for the same pain relief. Nausea, vomiting and/or constipation. Sleepiness, dizziness, dry mouth, confusion, depression or itching. Physical dependence, meaning you have withdrawal symptoms when a medication is stopped ? this can develop within a few days. KNOW YOUR RESPONSIBILITIES It is important to know exactly how much and how often to take the opioid pain medications you are prescribed. Never take opioids in higher amounts or more often than prescribed. Do not combine opioids with alcohol or other drugs that cause drowsiness, such as benzodiazepines, also known as benzos,including diazepam and alprazolam, muscle relaxants or sleep aids. Never sell or share prescriptionopioids. This is illegal. Store opioids in a secure place and out of reach of others (including children, family, friends and visitors). The last page(s) of this document has been signed and retained as a CHART COPY Signatures Patient Education Materials Hyperglycemia (High Blood Sugar) Medication Leaflets insulin glargine, insulin lispro My discharge plan and instructions have been reviewed and explained to me and I,MONIQUE ACEVEDOd my current condition and have read and understand these discharge instructions. I have received a written copy of the plan/instructions. If I have questions, I am aware that I should contact my doctor. Patient/Commissions Specialist Signature: Date/Time: Relationship to Patient: Witness Name/Signature: Date/Time: [facility]12-28-2022 NoteHNO ID: [id number] Author: Savannah Valverde APRN.ACADEMIC INTERN Service: ? Author Type: Nurse Practitioner Type: Progress Notes Filed: 05/12/2022 12:59 PM Note Text: Esthetics Instructor offered: Patient declinesCody Acevedo is a 36 year old female who presents for vaginal pruritis and discharge for 4 days. Has been on antibiotics for ear infection. Has history of boils and has 2 currently. She has been picking them. Has been having a hard time completely emptying bladder and needs to sit forward to finish voiding. Was considering bariatric surgery but stopped because of opinions of family and friends. Vaginal discharge: small amount creamy Itching: was itching but no longer Dyspareunia: N/A Fever/chills: No Abdominal pain: No Bladder: Negative for dysuria or frequency Bowel: No blood in stool, pain with BM, tarry stool, persistent diarrhea or constipation Any new sexual partners or concern for STD exposure: Yes, unsure about partner fidelity Any history of STDs: None Does your partner have any new complaints: No Are you currently taking any medications to treat vaginitis: No Do you use feminine sprays, douches or deodorants: Baby wipes Menstrual cycle: cycles every month and 4-5 days of flow Contraception: tubal sterilization Last pap: 2020, normal Past medical, surgical, social history, medications and allergies reviewed and updated. OBJECTIVE: BP 118/78 Wt 240 lb (108.9kg) LMP 04/16/2022 GENERAL: Well developed, well nourished in no apparent distress ABDOMEN: soft, non-tender, and no masses PELVIC: external genitalia normal, normal Bartholin's glands, urethra, [place]'s glands, no vulvar lesions, no cervical lesions, physiologic discharge present, normal appearing perineal body and perianal region, 2 areas of resolving folliculitis to mons BIMANUAL: uterus normal size, shape and consistency, no adnexal masses, and non-tender. ASSESSMENT/PLAN: 1. Vaginal discharge - ICD9: 623.5, ICD10: N89.8 (primary diagnosis) - vulvar hygiene instructions reviewed - GC/CHLAMYDIA DNA DET - BAILEY / TRICHOMONAS AMPLIFICATION - BACTERIAL VAGINOSIS AMPLIFICATION - discussed relationship between elevated blood sugars and yeast. If yeast infection, Monistat 7 or generic - a applicator full at bedtime every other night or 1/2 applicator every night x 2 weeks and possibly fluconazole. 2. Folliculitis - ICD9: 704.8, ICD10: L73.9 - long-term. Currently resolving. - Encouraged to avoid picking and squeezing so that bacteria is not introduced from fingernails. Wash with Dial antibacterial soap. - advised to avoid shaving and clip only in direction of hair growth. - MUPIROCIN 2 % TOPICAL OINTMENT 3. Screen for STD (sexually transmitted disease) - ICD9: V74.5, ICD10: Z11.3 - GC/CHLAMYDIA DNA DET - BAILEY / TRICHOMONAS AMPLIFICATION ASSESSMENT/PLAN: 4. Type 2 diabetes mellitus with other specified complication, without long-term current use of insulin (HCC) - ICD9: 250.80, ICD10: E11.69 - Admits to feeling like blood sugars have been elevated. Does not check BS and does not keep regular visits with PCP to manage. Encouraged to make appointment . 5. Class 2 severe obesity with serious comorbidity and body mass index (BMI) of 37.0 to 37.9 in adult, unspecified obesity type (HCC) - ICD9: 278.01, V85.37, ICD10: E66.01, Z68.37 - Has current referral to BMI. No-showed 2 psychology appointments - gave her rescheduling information from EMR. Discussed bariatric surgery and medical management. Encouraged that she discuss RBA with the medical experts instead of relying on anecdotal experiences. Will notify of results. Follow- up as needed. Savannah Valverde APRN.ACADEMIC INTERN Medical Decision Making: Problems: Low: Acute, uncomplicated illness or injury Moderate: 1+ chronic illnesses with change Data: Unique test(s) ordered: 2 Risk: Moderate: Drug management Medical Decision Making [facility]: [facility] Patient Instructions* Savannah Valverde APRN.CNP - 05/12/2022 11:57 AM EST Patient was a no-show for the Psychology Orientation/Welcome group. If she reschedules, it should be within another Welcome group. Wash with Dial antibacterial soap. Mupirocin ointment. Do not shave - you can clip only in direction of hair growth. Monistat 7 or generic - a applicator full at bedtime every other night or 1/2 applicator every night x 2 weeks. [facility] History of Present illness Narrative* Savannah Valverde APRN.CNP - 05/12/2022 11:35 AM EST Esthetics Instructor offered: Patient declines. Monique Acevedo is a 36 year old female who presents for vaginal pruritis and discharge for 4 days. Has been on antibiotics for ear infection. Has history of boils and has 2 currently. She has been picking them. Has been having a hard time completely emptying bladder and needs to sit forward to finish voiding. Was considering bariatric surgery but stopped because of opinions of family and friends. Vaginal discharge: small amount creamy Itching: was itching but no longer Dyspareunia: N/A Fever/chills: No Abdominal pain: No Bladder: Negative for dysuria or frequency Bowel: No blood in stool, pain with BM, tarry stool, persistent diarrhea or constipation Any new sexual partners or concern for STD exposure: Yes, unsure about partner fidelity Any history of STDs: None Does your partner have any new complaints: No Are you currently taking any medications to treat vaginitis: No Do you use feminine sprays, douches or deodorants: Baby wipes Menstrual cycle: cycles every month and 4-5 days of flow Contraception: tubal sterilization Last pap: 2020, normal Past medical, surgical, social history, medications and allergies reviewed and updated. OBJECTIVE: BP 118/78 Wt 240 lb (108.9kg) LMP 04/16/2022 GENERAL: Well developed, well nourished in no apparent distress ABDOMEN: soft, non-tender, and no masses PELVIC: external genitalia normal, normal Bartholin's glands, urethra, [place]'s glands, no vulvar lesions, no cervical lesions, physiologic discharge present, normal appearing perineal body and perianal region, 2 areas of resolving folliculitis to mons BIMANUAL: uterus normal size, shape and consistency, no adnexal masses, and non-tender. ASSESSMENT/PLAN: 1. Vaginal discharge - ICD9: 623.5, ICD10: N89.8 (primary diagnosis) - vulvar hygiene instructions reviewed - GC/CHLAMYDIA DNA DET - BAILEY / TRICHOMONAS AMPLIFICATION - BACTERIAL VAGINOSIS AMPLIFICATION - discussed relationship between elevated blood sugars and yeast. If yeast infection, Monistat 7 orgeneric - a applicator full at bedtime every other night or 1/2 applicator every night x 2 weeks and possibly fluconazole. 2. Folliculitis - ICD9: 704.8, ICD10: L73.9 - long-term. Currently resolving. - Encouraged to avoid picking and squeezing so that bacteria is not introduced from fingernails. Wash with Dial antibacterial soap. - advised to avoid shaving and clip only in direction of hair growth. - MUPIROCIN 2 % TOPICAL OINTMENT 3. Screen for STD (sexually transmitted disease) - ICD9: V74.5, ICD10: Z11.3 - GC/CHLAMYDIA DNA DET - BAILEY / TRICHOMONAS AMPLIFICATION ASSESSMENT/PLAN: 4. Type 2 diabetes mellitus with other specified complication, without long-term current use of insulin (HCC) - ICD9: 250.80, ICD10: E11.69 - Admits to feeling like blood sugars have been elevated. Does not check BS and does not keep regular visits with PCP to manage. Encouraged to make appointment . 5. Class 2 severe obesity with serious comorbidity and body mass index (BMI) of 37.0 to 37.9 in adult, unspecified obesity type (HCC) - ICD9: 278.01, V85.37, ICD10: E66.01, Z68.37 - Has current referral to BMI. No-showed 2 psychology appointments - gave her rescheduling information from EMR. Discussed bariatric surgery and medical management. Encouraged that she discuss RBA with the medical experts instead of relying on anecdotal experiences. Will notify of results. Follow- up as needed. Savannah Valverde APRN.CNP Medical Decision Making: Problems: Low: Acute, uncomplicated illness or injury Moderate: 1+ chronic illnesses with change Data: Unique test(s) ordered: 2 Risk: Moderate: Drug management Medical Decision Making Level: 4 - Moderate [facility] Discharge instructions Patient Education 05/05/2022 21:00:34 Otitis Media, Antibiotic Treatment (Adult) Middle Ear Infection (Adult) You have an infection of the middle ear, the space behind the eardrum. This is also called acute otitis media (AOM). Sometimes it is caused by the common cold. This is because congestion can block the internal passage (eustachian tube) that drains fluid from the middle ear. When the middle ear fills with fluid, bacteria can grow there and cause an infection. Oral antibiotics are used to treat this illness, not ear drops. Symptoms usually start to improve within 1 to 2 days of treatment. Home care The following are general care guidelines: Finish all of the antibiotic medicine given, even though you may feel better after the first few days. You may use ldcb-otr-utxuuwc medicine, such as acetaminophen or ibuprofen, to control pain and fever, unless something else was prescribed. If you have chronic liver or kidney disease or have ever had a stomach ulcer or gastrointestinal bleeding, talk with your healthcare provider before using these medicines. Do not give aspirin to anyone under 18 years of age who has a fever. It may cause severe illness or . Follow-up care Follow up with your healthcare provider, or as advised, in 2 weeks if all symptoms have not gotten better, or if hearing doesn't go back to normal within 1 month. When to seek medical advice Call your healthcare provider right away if any of these occur: Ear pain gets worse or does not improve after 3 days of treatment Unusual drowsiness or confusion Neck pain, stiff neck, or headache Fluid or blood draining from the ear canal Fever of 100.4 F (38 C) or as advised Seizure [id number] [employer] [place] [address], [place] [address]. All rights reserved. This information is not intended as a substitute for professional medical care. Always follow yourhealthcare professional's instructions. 05/05/2022 20:57:28 Headache, Unspecified Headache, Unspecified A number of things can cause headaches. The cause of your headache isn t clear. But it doesn t seemto be a sign of any serious illness. Headache affects almost everyone at some time. It is the most common reason people miss days from work or school. You could have a tension headache or a migraine headache. Stress can cause a tension headache. This can happen if you tense the muscles of your shoulders, neck, and scalp without knowing it. If this stress lasts long enough, you may develop a tension headache. It is not clear why migraines occur, but certain things called triggers can raise the risk of having a migraine attack. Migraine triggers may include emotional stress or depression, or by hormone changes during the menstrual cycle. Other triggers include control pills and other medicines, alcohol or caffeine, foods with tyramine (such as aged cheese, wine), eyestrain, weather changes, missed meals, and lack of sleep or oversleeping. Other causes of headache include: Viral illness with high fever Head injury with concussion Sinus, ear, or throat infection Dental pain and jaw joint (TMJ) pain More serious but less common causes of headache include stroke, brain hemorrhage, brain tumor, meningitis, and encephalitis. Home care Follow these tips when taking care of yourself at home: Don t drive yourself home if you were given pain medicine for your headache. Instead, have someone else drive you home. Try to sleep when you get home. You should feel much better when you wake up. Apply heat to the back of your neck to ease a neck muscle spasm. Take care of a migraine headache by putting an ice pack on your forehead or at the base of your skull. If you have nausea or vomiting, eat a light diet until your headache eases. If you have a migraine headache, use sunglasses when in the daylight or around bright indoor lighting until your symptoms get better. Bright glaring light can make this type of headache worse. Follow-up care Follow up with your healthcare provider, or as advised. Talk with your provider if you have frequent headaches. He or she can help figure out a treatment plan. By knowing the earliest signs of headache, and starting treatment right away, you may be able to stop the pain yourself. When to seek medical advice Call your healthcare provider right away if any of these occur: Your head pain suddenly gets worse after sexual intercourse or strenuous activity Your head pain doesn t get better within 24 hours You aren t able to keep liquids down (repeated vomiting) Fever of 100.4 F (38 C) or higher, or as directed by your healthcare provider Stiff neck Extreme drowsiness, confusion, or fainting Dizziness or dizziness with spinning sensation (vertigo) Weakness in an arm or leg or one side of your face You have trouble talking or seeing [id number] [employer]. [address] [place] [address]. All rights reserved. This information is not intended as a substitute for professional medical care. Always follow yourhealthcare professional's instructions. Follow Up Care 05/05/2022 20:42:51 With:GEOFFREY WHITE MD Address: [address] [place] [id number]- When:2-4 days [facility] 12-21-2022 Note Discharge Instructions Thank you for allowing [facility] to assist you with your healthcare needs. The following is importantdischarge information regarding your hospital visit. Diagnosis from Today's Visit Cough Headache What to Do Next Instructions from Your Care Team No qualifying data available. Post Acute Orders No qualifying data available. You Need to Schedule the Following Appointments Follow Up with GEOFFREY WHITE MD When Within 2-4 days Where: [address] [place] [address] [id number]- Allergies NKA Medications Please ask your primary doctor or pharmacist before taking any other medication not listed, including over the counter drugs, herbal medications, vitamins and or supplements as they may interact withyour home medications. What How Much When Instructions Last Dose New amoxicillin (amoxicillin 875 mg oral tablet) 1 tab(s) by mouth Two (2) times a day Duration: 5 Days Printed Prescription Unchanged acetaminophen-hydrocodone (acetaminophen-hydrocodone 325 mg-5 mg oral tablet) Unchanged acetaminophen-oxyCODONE (acetaminophen-oxyCODONE 325 mg-5 mg oral tablet) Unchanged ibuprofen (Motrin) 600 Milligram by mouth Every 6 hours as needed for pain Unchanged metroNIDAZOLE (metroNIDAZOLE 500 mg oral tablet) Unchanged miSOPROStol (miSOPROStol 200 mcg oral tablet) Unchanged predniSONE (predniSONE 10 mg oral tablet) Please take this list to your next doctor s visit. Bring all medications you take, including over the counter medications, herbals and other supplements with you to your doctor s visit. Patients and families are reminded to discard old lists and to update any records with all medication providers or retail pharmacies. Education Materials Middle Ear Infection (Adult) You have an infection of the middle ear, the space behind the eardrum. This is also called acute otitis media (AOM). Sometimes it is caused by the common cold. This is because congestion can block the internal passage (eustachian tube) that drains fluid from the middle ear. When the middle ear fills with fluid, bacteria can grow there and cause an infection. Oral antibiotics are used to treat this illness, not ear drops. Symptoms usually start to improve within 1 to 2 days of treatment. Home care The following are general care guidelines: Finish all of the antibiotic medicine given, even though you may feel better after the first few days. You may use mkhr-oax-lwhykbl medicine, such as acetaminophen or ibuprofen, to control pain and fever, unless something else was prescribed. If you have chronic liver or kidney disease or have ever had a stomach ulcer or gastrointestinal bleeding, talk with your healthcare provider before using these medicines. Do not give aspirin to anyone under 18 years of age who has a fever. It may cause severe illness or . Follow-up care Follow up with your healthcare provider, or as advised, in 2 weeks if all symptoms have not gotten better, or if hearing doesn't go back to normal within 1 month. When to seek medical advice Call your healthcare provider right away if any of these occur: Ear pain gets worse or does not improve after 3 days of treatment Unusual drowsiness or confusion Neck pain, stiff neck, or headache Fluid or blood draining from the ear canal Fever of 100.4 F (38 C) or as advised Seizure [id number] [employer]. [address] [place] [address], [place] [address]. All rights reserved. This information is not intended as a substitute for professional medical care. Always follow yourhealthcare professional's instructions. Headache, Unspecified A number of things can cause headaches. The cause of your headache isn t clear. But it doesn t seemto be a sign of any serious illness. Headache affects almost everyone at some time. It is the most common reason people miss days from work or school. You could have a tension headache or a migraine headache. Stress can cause a tension headache. This can happen if you tense the muscles of your shoulders, neck, and scalp without knowing it. If this stress lasts long enough, you may develop a tension headache. It is not clear why migraines occur, but certain things called triggers can raise the risk of having a migraine attack. Migraine triggers may include emotional stress or depression, or by hormone changes during the menstrual cycle. Other triggers include control pills and other medicines, alcohol or caffeine, foods with tyramine (such as aged cheese, wine), eyestrain, weather changes, missed meals, and lack of sleep or oversleeping. Other causes of headache include: Viral illness with high fever Head injury with concussion Sinus, ear, or throat infection Dental pain and jaw joint (TMJ) pain More serious but less common causes of headache include stroke, brain hemorrhage, brain tumor, meningitis, and encephalitis. Home care Follow these tips when taking care of yourself at home: Don t drive yourself home if you were given pain medicine for your headache. Instead, have someone else drive you home. Try to sleep when you get home. You should feel much better when you wake up. Apply heat to the back of your neck to ease a neck muscle spasm. Take care of a migraine headache by putting an ice pack on your forehead or at the base of your skull. If you have nausea or vomiting, eat a light diet until your headache eases. If you have a migraine headache, use sunglasses when in the daylight or around bright indoor lighting until your symptoms get better. Bright glaring light can make this type of headache worse. Follow-up care Follow up with your healthcare provider, or as advised. Talk with your provider if you have frequent headaches. He or she can help figure out a treatment plan. By knowing the earliest signs of headache, and starting treatment right away, you may be able to stop the pain yourself. When to seek medical advice Call your healthcare provider right away if any of these occur: Your head pain suddenly gets worse after sexual intercourse or strenuous activity Your head pain doesn t get better within 24 hours You aren t able to keep liquids down (repeated vomiting) Fever of 100.4 F (38 C) or higher, or as directed by your healthcare provider Stiff neck Extreme drowsiness, confusion, or fainting Dizziness or dizziness with spinning sensation (vertigo) Weakness in an arm or leg or one side of your face You have trouble talking or seeing [id number] [employer]. [address] [place] [address]. All rights reserved. This information is not intended as a substitute for professional medical care. Always follow yourhealthcare professional's instructions. Additional Information VACCINATE! IT SAVES LIVES! Members of the community who have not yet received the COVID-19 vaccine and would like to receive it can visit one of [facility] vaccine clinics. There are many vaccine clinic locations within the [facility]. For locations and available times, please visit [email or web address]. It is important to note that some COVID mobile vaccine clinics are held outdoors and may be canceled in rainy orstormy conditions. To learn more about pediatric vaccinations (ages 5-11), we invite you to visit the [facility] webpage. [email or web address] learn more about the COVID-19 vaccine, we invite you to visit the [facility] website for a list of frequently asked questions. [email or web address] [facility] Patient Portal Access Instructions: Stay connected with your healthcare team and access your personal medical information anytime with the [facility] Patient Portal. If you would like a full copy of your medical records please contact the [facility] Medical Records Department Tuesday through Tuesday between 8a.m. and 4:30p.m. Please follow the directions below to access the portal: 1.Access the email account you provided upon registration to the [facility].2.Look for an invitation email from [facility].3.Open the email and access the invitation link: Accept Invitation to [facility]4.Fill in the required ruelas to create your account. Sign into www.[email or web address] with your username and password that you created in the above steps to stay up to date. You can then view a summary of results, a summary of your visits, and the ability to download your summaries to your computer or send the information securely to a physician. Remember that your healthcare information is confidential, so carefully consider who you will allow to register on the [facility] Patient Portal for access to your information. You can also access the [facility] Patient Portal on the [employer] fatuma. Simply click on Health Records under [employer] and then click on the [employer] logo. HOW TO SAFELY DISPOSE OF PRESCRIPTION MEDICATIONS Please use one of the following methods to safely dispose of your unused medications. 1.Use a drug disposal kit: the drug disposal pouch allows you to safely discard your old and unuseddrugs. Ask your nurse to give you one when you are discharged.2.Visit a local take-back location: Many local pharmacies and police departments have programs that collect old and unwanted prescriptiondrugs. Call your local pharmacy or go to [email or web address]/2N5Zu5k to find one close to you.3.Make use of household items: Use cat litter or old coffee grounds to dispose medications if other options arenot available. Mix your drugs with these household products, seal them in an airtight container andthrow it into the garbage. Call [facility]: [phone] to be sure your drugs can be disposed of in this way. Some medicines may require a different approach.4.Never flush your medications down the toilet. IF YOU HAVE BEEN PRESCRIBED AN OPIOIDS FOR PAIN If you have been prescribed an opioid (such as hydrocodone, oxycodone or morphine), it is critical to understand the possible side effects and risks of opioid pain medications. Even when taken as directed, opioids can have several side effects including: Tolerance, meaning you might need to take more of a medication for the same pain relief. Nausea, vomiting and/or constipation. Sleepiness, dizziness, dry mouth, confusion, depression or itching. Physical dependence, meaning you have withdrawal symptoms when a medication is stopped ? this can develop within a few days. KNOW YOUR RESPONSIBILITIES It is important to know exactly how much and how often to take the opioid pain medications you are prescribed. Never take opioids in higher amounts or more often than prescribed. Do not combine opioids with alcohol or other drugs that cause drowsiness, such as benzodiazepines, also known as benzos,including diazepam and alprazolam, muscle relaxants or sleep aids. Never sell or share prescriptionopioids. This is illegal. Store opioids in a secure place and out of reach of others (including children, family, friends and visitors). The last page(s) of this document has been signed and retained as a CHART COPY Signatures Patient Education Materials Otitis Media, Antibiotic Treatment (Adult) Headache, Unspecified Medication Leaflets My discharge plan and instructions have been reviewed and explained to me and I,MONIQUE ACEVEDO understand my current condition and have read and understand these discharge instructions. I have received a written copy of the plan/instructions. If I have questions, I am aware that I should contactmy doctor. Patient/Commissions Specialist Signature: Date/Time: Relationship to Patient: Witness Name/Signature: Date/Time: [facility]12-21-2022 SARS-CoV-2 (COVID-19) RNA YURIY+probe Ql (Nph)Negative *NA* (05/05/22 9:02 PM)AO [employer] Urine [id number] Hospital Discharge instructions Patient Education 04/24/2022 12:49:32 Hip Strain Hip Strain You have a strain of the muscles around the hip joint. A muscle strain is a stretching or tearing of muscle fibers. This causes pain, especially when you move that muscle. There may also be some swelling and bruising. Home care Stay off the injured leg as much as possible until you can walk on it without pain. If you have a lot of pain with walking, crutches or a walker may be prescribed. These can be [facility] or [facility] and surgical or orthopedic supply stores. Follow your healthcare provider's advice about when to start putting weight on that leg. Apply an ice pack over the injured area for 15 to 20 minutes every 3 to 6 hours. Do this for the first 24 to 48 hours. You can make an ice pack by filling a plastic bag that seals at the top with icecubes and then wrapping it with a thin towel. Be careful not to injure your skin with the ice treatments. Ice should never be applied directly to skin. Continue the use of ice packs for relief of pain and swelling as needed. After 48 hours, apply heat (warm shower or warm bath) for 15 to 20 minutesseveral times a day, or alternate ice and heat. You may use dsco-fre-lmurxfc pain medicine to control pain, unless another pain medicine was prescribed. If you have chronic liver or kidney disease or ever had a stomach ulcer or gastrointestinal bleeding, talk with your healthcare provider before using these medicines. If you play sports, you may resume these activities when you are able to hop and run on the injuredleg without pain. Follow-up care Follow up with your healthcare provider, or as advised. If your symptoms don't start to get better after a week, more tests may be needed. If X-rays were taken, you will be told of any new findings that may affect your care. When to seek medical advice Call your healthcare provider right away if any of these occur: Increased swelling or bruising Increased pain Losing the ability to put weight on the injured side [id number] The [employer]. [address] [place] [address]. All rights reserved. This information is not intended as a substitute for professional medical care. Always follow yourhealthcare professional's instructions. Follow Up Care 04/24/2022 11:25:28 With:DO TIFFANI BAILEY DO Address: [address] [place] [address] [address] [place] [address] When:2-4 days With:Go to emergency room if symptoms worsen Address:Unknown When:2-4 days [facility] 12-10-2022 Note Discharge Instructions Thank you for allowing [facility] to assist you with your healthcare needs. The following is importantdischarge information regarding your hospital visit. Diagnosis from Today's Visit Arthropathy of hip joint Hip pain-swelling What to Do Next Instructions from Your Care Team No qualifying data available. Post Acute Orders No qualifying data available. You Need to Schedule the Following Appointments Follow Up with DO TIFFANI BAILEY DO When Within 2-4 days Where: [address] [place] [address] Follow Up with Go to emergency room if symptoms worsen When Within 2-4 days Allergies NKA Medications Please ask your primary doctor or pharmacist before taking any other medication not listed, including over the counter drugs, herbal medications, vitamins and or supplements as they may interact withyour home medications. What How Much When Why Instructions Last Dose Changed predniSONE (predniSONE 10 mg oral tablet) Changed predniSONE (predniSONE 20 mg oral tablet) See instructions Arthropathy of hip joint 3 p.o. day 1 and 2, 2 p.o. day 3 and 4, 1 p.o. day 5 through 8 Printed Prescription Unchanged acetaminophen-hydrocodone (acetaminophen-hydrocodone 325 mg-5 mg oral tablet) Unchanged acetaminophen-oxyCODONE (acetaminophen-oxyCODONE 325 mg-5 mg oral tablet) Unchanged ibuprofen (Motrin) 600 Milligram by mouth Every 6 hours as needed for pain Unchanged metroNIDAZOLE (metroNIDAZOLE 500 mg oral tablet) Unchanged miSOPROStol (miSOPROStol 200 mcg oral tablet) Please take this list to your next doctor s visit. Bring all medications you take, including over the counter medications, herbals and other supplements with you to your doctor s visit. Patients and families are reminded to discard old lists and to update any records with all medication providers or retail pharmacies. Medication Leaflets prednisone (ELLEN Burnette What is the most important information I should know about prednisone? You should not use prednisone if you have a fungal infection anywhere in your body. You should not stop using prednisone suddenly. Follow your doctor's instructions about tapering your dose. What is prednisone? Prednisone is a steroid that reduces inflammation in the body, and also suppresses your immune system. Prednisone is used to treat many different conditions such as hormonal disorders, skin diseases, arthritis, lupus, psoriasis, allergic conditions, ulcerative colitis, Crohn's disease, eye diseases, lung diseases, asthma, tuberculosis, blood cell disorders, kidney disorders, leukemia, lymphoma, multi ple sclerosis, organ transplant rejection, swelling from a brain tumor or injury. Prednisone may also be used for purposes not listed in this medication guide. What should I discuss with my healthcare provider before taking prednisone? You should not use prednisone if you are allergic to it, or if you have a fungal infection anywherein your body. Steroid medication can weaken your immune system, making it easier for you to get an infection or worsening an infection you already have. Tell your doctor about any illness or infection you've had within the past several weeks. Tell your doctor if you have ever had: heart problems, high blood pressure, or a heart attack; glaucoma or cataracts; herpes infection of the eyes; past or present tuberculosis; a parasite infection that causes diarrhea (such as threadworms); any illness that causes diarrhea; underactive thyroid; diabetes; a stomach ulcer, diverticulitis; a colostomy or ileostomy; osteoporosis or low bone mineral density (steroid medication can increase your risk of bone loss); low levels of calcium or potassium in your blood; cirrhosis or other liver disease; mental illness or psychosis; or a muscle disorder such as myasthenia gravis. Long-term use of steroids may lead to bone loss (osteoporosis), especially if you smoke or drink alcohol, if you do not exercise, or if you do not get enough vitamin D or calcium in your diet. It is not known whether this medicine will harm an unborn baby. Tell your doctor if you are or plan to become . You should not breastfeed while using prednisone. How should I take prednisone? Follow all directions on your prescription label and read all medication guides or instruction sheets. Your doctor may occasionally change your dose. Use the medicine exactly as directed. Prednisone is taken daily or every other day, depending on the condition being treated. You may need to take the medicine at a certain time of day. Follow your doctor's instructions about when and how often to take this medicine. Take with food if prednisone upsets your stomach. Measure liquid medicine carefully. Use the dosing syringe provided, or use a medicine dose-measuring device (not a kitchen spoon). Swallow the delayed-release tablet whole and do not crush, chew, or break it. Prednisone can weaken (suppress) your immune system, and you may get an infection more easily. Callyour doctor if you have signs of infection (fever, weakness, cold or flu symptoms, skin sores, diarrhea, frequent or recurring illness). If you have major surgery or a severe injury or infection, your prednisone dose needs may change. Make sure any doctor caring for you knows you are using this medicine. If you use this medicine long-term, you may need medical tests and vision exams. In case of emergency, wear or carry medical identification to let others know you use a steroid. You should not stop using prednisone suddenly. Follow your doctor's instructions about tapering your dose. Store at room temperature away from moisture, heat, and light. What happens if I miss a dose? Take the medicine as soon as you can, but skip the missed dose if it is almost time for your next dose. Do not take two doses at one time. What happens if I overdose? Seek emergency medical attention or call the Poison Help line at . High doses or long-term use of prednisone can lead to thinning skin, easy bruising, changes in bodyfat (especially in your face, neck, back, and waist), increased acne or facial hair, menstrual problems, impotence, or loss of interest in sex. What should I avoid while taking prednisone? Do not receive a 'live' vaccine while using prednisone. The vaccine may not work as well and may not fully protect you from disease. Live vaccines include measles, mumps, rubella (MMR), polio, rotavirus, typhoid, yellow fever, varicella (chickenpox), zoster (shingles), and nasal flu (influenza) vaccine. Avoid being near people who are sick or have infections. Call your doctor for preventive treatment if you are exposed to chickenpox or measles. These conditions can be serious or even fatal in peoplewho are using steroid medicine. Avoid drinking alcohol. What are the possible side effects of prednisone? Get emergency medical help if you have signs of an allergic reaction: hives; difficult breathing; swelling of your face, lips, tongue, or throat. Call your doctor at once if you have: muscle pain or weakness; blurred vision, tunnel vision, eye pain, or seeing halos around lights; severe depression, changes in personality, unusual thoughts or behavior; bloody or tarry stools, coughing up blood or vomit that looks like coffee grounds; swelling, rapid weight gain, feeling short of breath; irregular heartbeats; severe headache, pounding in your neck or ears; decreased adrenal gland hormones--muscle weakness, tiredness, diarrhea, nausea, menstrual changes, skin discoloration, craving salty foods, and feeling light- headed; or low potassium level--leg cramps, constipation, irregular heartbeats, fluttering in your chest, increased thirst or urination, numbness or tingling, muscle weakness or limp feeling. Prednisone can affect growth in children. Tell your doctor if your child is not growing at a normalrate while using this medicine. Common side effects may include: weight gain (especially in your face or your upper back and torso); increased appetite; mood changes, trouble sleeping; changes in your menstrual periods; problems with memory or thought; muscle or joint pain; weakness; headache, dizziness, spinning sensation; nausea, bloating, loss of appetite; slow wound healing; or acne, increased sweating, thinning skin, bruising, pinpoint spots under your skin. This is not a complete list of side effects and others may occur. Call your doctor for medical advice about side effects. You may report side effects to FDA at 5-853-TAH-9886. What other drugs will affect prednisone? Sometimes it is not safe to use certain medications at the same time. Some drugs can affect your blood levels of other drugs you take, which may increase side effects or make the medications less effective. Tell your doctor about all your current medicines. Many drugs can affect prednisone, especially: bupropion; cyclosporine; digoxin; ketoconazole; an antibiotic; control pills or hormone replacement therapy; a diuretic or 'water pill'; insulin or oral diabetes medicine; a blood thinner--warfarin, Coumadin, Jantoven; or NSAIDs (nonsteroidal anti-inflammatory drugs)--aspirin, ibuprofen (Advil, Motrin), naproxen (Aleve), celecoxib, diclofenac, indomethacin, meloxicam, and others. This list is not complete and many other drugs may affect prednisone. This includes prescription and zzpa-oyp-rxwxqdn medicines, vitamins, and herbal products. Not all possible drug interactions are listed here. Where can I get more information? Your pharmacist can provide more information about prednisone. Remember, keep this and all other medicines out of the reach of children, never share your medicines with others, and use this medication only for the indication prescribed. Every effort has been made to ensure that the information provided by [employer]. ('[employer]') is accurate, up-to-date, and complete, but no guarantee is made to that effect. Drug information contained herein may be time sensitive. [employer] information has been compiled for use by healthcare practitioners and consumers in the [place] and therefore [employer] does not warrant that uses outside of the [place] are appropriate, unless specifically indicated otherwise. [employer] drug information does not endorse drugs, diagnose patients or recommend therapy. [employer] drug information isan informational resource designed to assist licensed healthcare practitioners in caring for their p atients and/or to serve consumers viewing this service as a supplement to, and not a substitute for, the expertise, skill, knowledge and judgment of healthcare practitioners. The absence of a warningfor a given drug or drug combination in no way should be construed to indicate that the drug or drug combination is safe, effective or appropriate for any given patient. [employer] does not assume any responsibility for any aspect of healthcare administered with the aid of information [employer] provides. The information contained herein is not intended to cover all possible uses, directions, precautions, warnings, drug interactions, allergic reactions, or adverse effects. If you have questions about the drugs you are taking, check with your doctor, nurse or pharmacist. Copyright 1538-3214 [employer]. Version: 10.. Revision Date: 08/10/2018. Education Materials Hip Strain You have a strain of the muscles around the hip joint. A muscle strain is a stretching or tearing of muscle fibers. This causes pain, especially when you move that muscle. There may also be some swelling and bruising. Home care Stay off the injured leg as much as possible until you can walk on it without pain. If you have a lot of pain with walking, crutches or a walker may be prescribed. These can be rented or purchased [facility] and surgical or orthopedic supply stores. Follow your healthcare provider's advice about when to start putting weight on that leg. Apply an ice pack over the injured area for 15 to 20 minutes every 3 to 6 hours. Do this for the first 24 to 48 hours. You can make an ice pack by filling a plastic bag that seals at the top with icecubes and then wrapping it with a thin towel. Be careful not to injure your skin with the ice treatments. Ice should never be applied directly to skin. Continue the use of ice packs for relief of pain and swelling as needed. After 48 hours, apply heat (warm shower or warm bath) for 15 to 20 minutesseveral times a day, or alternate ice and heat. You may use pqdi-yau-pozprjt pain medicine to control pain, unless another pain medicine was prescribed. If you have chronic liver or kidney disease or ever had a stomach ulcer or gastrointestinal bleeding, talk with your healthcare provider before using these medicines. If you play sports, you may resume these activities when you are able to hop and run on the injuredleg without pain. Follow-up care Follow up with your healthcare provider, or as advised. If your symptoms don't start to get better after a week, more tests may be needed. If X-rays were taken, you will be told of any new findings that may affect your care. When to seek medical advice Call your healthcare provider right away if any of these occur: Increased swelling or bruising Increased pain Losing the ability to put weight on the injured side [id number] [employer]. [address] [place] [address]. All rights reserved. This information is not intended as a substitute for professional medical care. Always follow yourhealthcare professional's instructions. Additional Information VACCINATE! IT SAVES LIVES! Members of the community who have not yet received the COVID-19 vaccine and would like to receive it can visit one of [facility] vaccine clinics. There are many vaccine clinic locations within the [facility]. For locations and available times, please visit [email or web address]. It is important to note that some COVID mobile vaccine clinics are held outdoors and may be canceled in rainy orstormy conditions. To learn more about pediatric vaccinations (ages 5-11), we invite you to visit the [facility] webpage. [email or web address] learn more about the COVID-19 vaccine, we invite you to visit the [employer] website for a list of frequently asked questions. [email or web address] [facility] Patient Portal Access Instructions: Stay connected with your healthcare team and access your personal medical information anytime with the [facility] Patient Portal. If you would like a full copy of your medical records please contact the [facility] Medical Records Department Tuesday through Tuesday between 8a.m. and 4:30p.m. Please follow the directions below to access the portal: 1.Access the email account you provided upon registration to the [facility].2.Look for an invitation email from [facility].3.Open the email and access the invitation link: Accept Invitation to [facility]4.Fill in the required ruelas to create your account. Sign into [email or web address] with your username and password that you created in the above steps to stay up to date. You can then view a summary of results, a summary of your visits, and the ability to download your summaries to your computer or send the information securely to a physician. Remember that your healthcare information is confidential, so carefully consider who you will allow to register on the [facility] Patient Portal for access to your information. You can also access the [facility] Patient Portal on the [employer]. Simply click on Health Records under Shoutitout and then click on the [employer] logo. HOW TO SAFELY DISPOSE OF PRESCRIPTION MEDICATIONS Please use one of the following methods to safely dispose of your unused medications. 1.Use a drug disposal kit: the drug disposal pouch allows you to safely discard your old and unuseddrugs. Ask your nurse to give you one when you are discharged.2.Visit a local take-back location: Many local pharmacies and police departments have programs that collect old and unwanted prescriptiondrugs. Call your local pharmacy or go to http://bit.ly/7G1Ui1d to find one close to you.3.Make use of household items: Use cat litter or old coffee grounds to dispose medications if other options arenot available. Mix your drugs with these household products, seal them in an airtight container andthrow it into the garbage. Call [facility]: [phone] to be sure your drugs can be disposed of in this way. Some medicines may require a different approach.4.Never flush your medications down the toilet. IF YOU HAVE BEEN PRESCRIBED AN OPIOIDS FOR PAIN If you have been prescribed an opioid (such as hydrocodone, oxycodone or morphine), it is critical to understand the possible side effects and risks of opioid pain medications. Even when taken as directed, opioids can have several side effects including: Tolerance, meaning you might need to take more of a medication for the same pain relief. Nausea, vomiting and/or constipation. Sleepiness, dizziness, dry mouth, confusion, depression or itching. Physical dependence, meaning you have withdrawal symptoms when a medication is stopped ? this can develop within a few days. KNOW YOUR RESPONSIBILITIES It is important to know exactly how much and how often to take the opioid pain medications you are prescribed. Never take opioids in higher amounts or more often than prescribed. Do not combine opioids with alcohol or other drugs that cause drowsiness, such as benzodiazepines, also known as benzos,including diazepam and alprazolam, muscle relaxants or sleep aids. Never sell or share prescriptionopioids. This is illegal. Store opioids in a secure place and out of reach of others (including children, family, friends and visitors). The last page(s) of this document has been signed and retained as a CHART COPY Signatures Patient Education Materials Hip Strain Medication Leaflets prednisone My discharge plan and instructions have been reviewed and explained to me and I,MONIQUE ACEVEDO understand my current condition and have read and understand these discharge instructions. I have received a written copy of the plan/instructions. If I have questions, I am aware that I should contactmy doctor. Patient/Commissions Specialist Signature: Date/Time: Relationship to Patient: Witness Name/Signature: Date/Time: [facility]12-10-2022 Note ORIGINAL EXAMINATION: TWO XRAY VIEWS OF THE PELVIS AND TWO XRAY VIEWS RIGHT HIP 04/24/2022 12:13 pm COMPARISON: Lumbar spine radiographs of the same date. CT of the abdomen and pelvis dated 10/05/2020. HISTORY: ORDERING SYSTEM PROVIDED HISTORY: Reason for Exam: pain FINDINGS: There is normal radiographic bone mineral density. The sacroiliac joints are symmetric bilaterally with subchondral sclerosis seen bilaterally. The pubic symphysis is intact with subchondral sclerosis noted. The hip joints have a symmetric appearance without evidence of fracture or dislocation. Mild bilateral hip joint space loss and subchondral sclerosis is seen. Mild greater trochanter enthesophyte is noted. There is no appreciable soft tissue swelling. IMPRESSION: No acute fracture or dislocation. Scattered mild osteoarthritic changes of the bilateral hips, pubic symphysis, and SI joints. Consider sacroiliitis. Interpreted by: Carlos Meyer MD Preliminary Report By: Carlos Meyer MD Electronically signed By Carlos Meyer MD Dictated Date: 04/24/2022 12:35:02 PM Prelim Date: 04/24/2022 12:37:27 PM Sign Date: 04/24/2022 12:37:27 PM Ordering Provider: [facility]12-10-2022 Note ORIGINAL EXAMINATION: 3 XRAY VIEWS OF THE LUMBAR SPINE 04/24/2022 12:12 pm COMPARISON: CT of the abdomen and pelvis dated 10/05/2020. HISTORY: ORDERING SYSTEM PROVIDED HISTORY: Reason for Exam: pain; trauma patient Fall 1 week ago. Complaints of right hip pain. FINDINGS: There are five lumbar type vertebral bodies. The vertebral body heights, alignment and interspacing appear to be normal. There are no fractures or subluxations identified. No evidence of spondylolysis or spondylolisthesis is seen. Mild facet arthropathy is seen at the levels of L4-L5 and L5-S1. The sacroiliac joints have a symmetrical appearance. IMPRESSION: No evidence of acute fractures or subluxations. Mild lower lumbar facet arthropathy. Interpreted by: Carlos Meyer MD Preliminary Report By: Carlos Meyer MD Electronically signed By Carlos Meyer MD Dictated Date: 04/24/2022 12:33:19 PM Prelim Date: 04/24/2022 12:34:59 PM Sign Date: 04/24/2022 12:34:59 PM Ordering Provider: [facility]12-10-2022 Note ORIGINAL EXAMINATION: TWO XRAY VIEWS OF THE PELVIS AND TWO XRAY VIEWS RIGHT HIP 04/24/2022 12:13 pm COMPARISON: Lumbar spine radiographs of the same date. CT of the abdomen and pelvis dated 10/05/2020. HISTORY: ORDERING SYSTEM PROVIDED HISTORY: Reason for Exam: pain FINDINGS: There is normal radiographic bone mineral density. The sacroiliac joints are symmetric bilaterally with subchondral sclerosis seen bilaterally. The pubic symphysis is intact with subchondral sclerosis noted. The hip joints have a symmetric appearance without evidence of fracture or dislocation. Mild bilateral hip joint space loss and subchondral sclerosis is seen. Mild greater trochanter enthesophyte is noted. There is no appreciable soft tissue swelling. IMPRESSION: No acute fracture or dislocation. Scattered mild osteoarthritic changes of the bilateral hips, pubic symphysis, and SI joints. Consider sacroiliitis. Interpreted by: Carlos Meyer MD Preliminary Report By: Carlos Meyer MD Electronically signed By Carlos Meyer MD Dictated Date: 04/24/2022 12:35:02 PM Prelim Date: 04/24/2022 12:37:27 PM Sign Date: 04/24/2022 12:37:27 PM Ordering Provider: [facility]12-10-2022 Note ORIGINAL EXAMINATION: 3 XRAY VIEWS OF THE LUMBAR SPINE 04/24/2022 12:12 pm COMPARISON: CT of the abdomen and pelvis dated 10/05/2020. HISTORY: ORDERING SYSTEM PROVIDED HISTORY: Reason for Exam: pain; trauma patient Fall 1 week ago. Complaints of right hip pain. FINDINGS: There are five lumbar type vertebral bodies. The vertebral body heights, alignment and interspacing appear to be normal. There are no fractures or subluxations identified. No evidence of spondylolysis or spondylolisthesis is seen. Mild facet arthropathy is seen at the levels of L4-L5 and L5-S1. The sacroiliac joints have a symmetrical appearance. IMPRESSION: No evidence of acute fractures or subluxations. Mild lower lumbar facet arthropathy. Interpreted by: Carlos Meyer MD Preliminary Report By: Carlos Meyer MD Electronically signed By Carlos Meyer MD Dictated Date: 04/24/2022 12:33:19 PM Prelim Date: 04/24/2022 12:34:59 PM Sign Date: 04/24/2022 12:34:59 PM Ordering Provider: [facility]11-04-2022 History of Present illness Narrative* Sue Mg, PhD - 03/19/2022 2:16 PM EDT [facility] Bariatric Behavioral Services Progress Note March 19, 2022 Patient was a no-show for the Psychology Orientation/Welcome group. If she reschedules, it should be within another Welcome group. Sue Mg, Ph.D. Psychologist documented in this encounterLake[facility]06-28-[facility]22 Instructions* Patient Instructions* Talia Perez APRN.CNP - 11/10/2021 10:55 AM EDT [email or web address] documented in this encounterLakehealth [facility]06-28-2022 History of Present illness Narrative* Talia Perez APRN.CNP - 11/10/2021 10:41 AM EDT This Team Access Model visit is a virtual encounter. It required patient- provider interaction for the medical decision making as documented below. Patient agrees to the visit: Yes Patient Location: [place] CC: Patient presents with: Harvey Acevedo is a 35 year old female who is contacted today for a virtual visit. This is an established patient of Dr. Geoffrey White MD. She would like to discuss bariatric surgery. She is diabetic. Previously on Trulicity for diabetes but has never been on weight loss medications. She did not tolerate Trulicity, caused a lot of GI side effects and seemed to make her more hungry DIET Daily serving of fruits:1-2 Daily serving of vegetables:1-2 Daily serving of protein:3-5 Fluid intake: drinks a lot of soda but trying to drink more water Do you Skip meals:YES Which meals do you tend to skip? Breakfast Eating away from home:YES Fast-food/fast-casualMore than twice weekly Exercise routine: NO But tries to stay active REVIEW OF SYSTEMS See HPI PAST MEDICAL HISTORY Diagnosis Date Anxiety Diabetes (HCC) diagnosed 2012 Infection of tooth 2014 Insulin dependent gestational diabetes mellitus, antepartum 10/22/2014 Major depressive disorder, single episode, unspecified remote 2004 Migraine, unspecified, without mention of intractable migraine without mention of status migrainosus no aura Obesity, unspecified PTSD (post-traumatic stress disorder) Tobacco use disorder quit 08/2014 Tobacco use in , antepartum 10/22/2014 Triplet in third trimester 10/22/2014 Unspecified asthma(493.90) occasional inhaler use Uterine rupture 06/18/2014 History of uterine rupture, per patient, diagnosed at the time of her second c- section. Third was scheduled at 36 weeks PAST SURGICAL HISTORY Procedure Laterality Date DELIVERY ONLY 2004,2005, 2012,2014 , low cervical TUBAL LIGATION 2014 ALLERGIES Patient has no known allergies. MEDICATIONS predniSONE (DELTASONE) 10 mg tablet 6 tabs po day 1 and 2, then 5 tabs day 3 and 4, 4 tabs day 5 and 6, 3 tabs day 7 and 8, 2 tabs day 9 and 10, 1 tab day 11 and 12. albuterol HFA (PROVENTIL HFA, VENTOLIN HFA) 90 mcg/actuation inhaler Inhale 2 Puffs as instructed every 4 hours as needed for wheezing/shortness of breath. L. acidophilus,casei,rhamnosus 50 billion cell cpDR Take 1 capsule by mouth once daily. ibuprofen (MOTRIN) 600 mg tablet Take by mouth. FAMILY HISTORY Problem Relation Age of Onset Asthma Mother Headache Mother migraine COPD Mother Heart Mother other (Other - Polio) Father Asthma Sister Psychiatry Sister bipolar, anxiety, OCD No Known Problems Brother Asthma Maternal Grandmother Hypertension Maternal Grandmother Coronary Artery Disease Maternal Grandfather Social History Tobacco Use Smoking status: Current Every Day Smoker Packs/day: 1.00 Years: 11.00 Pack years: 11.00 Types: Cigarettes Last attempt to quit: 08/17/2014 Years since quittin.2 Smokeless tobacco: Never Used Vaping Use Vaping Use: Never used Substance Use Topics Alcohol use: Yes Comment: socially Drug use: Not Currently Frequency: 1.0 times per week Types: Marijuana Comment: once daily or+ EXAM: Virtual visit completed using video, limited exam completed. Self reported vital signs: Ht 170.2 cm (5' 7) Wt 109.8 kg (242 lb) BMI 37.90 kg/m GENERAL: alert and appropriate, in no distress, well-hydrated, well nourished and happy, smiling, interactive ASSESSMENT/PLAN: 1. Obesity, Class II, BMI 35-39.9 - ICD9: 278.00, ICD10: E66.9 (primary diagnosis) Weight increasing Discussed weight loss options including bariatric surgery and medications. Her BMI is over 35 and she has a co-morbidity of diabetes which meets the initial criteria for surgery. Patient would like more information about bariatric surgery, link for [facility] bariatric surgery department copied into patient's AVS. Also encouraged patient to call her insurance to discuss their requirements and coverage information - [facility] - Patient advised if she does not wish to proceed with bariatric surgery to consider referral to hot mill roller and/or weight loss medications. 2. Type 2 diabetes mellitus without complication, without long-term current use of insulin (HCC) - ICD9: 250.00, ICD10: E11.9 - [facility] Prescription instructions reviewed with patient as applicable. Potential red flag symptoms discussed with the patient. Reviewed appropriate action plan to take if red flag symptoms occur. Patient agreeable to treatment plan. During this patient visit I have spent approximately 15 minutes in counseling regarding treatment options and coordinating care. Talia Perez APRN.CNP documented in this encounterLake[facility]06-13-2022 History of Present illness Narrative* Deedee Cotton PA-C - 10/26/2021 2:04 PM EDT Deedee Cotton PA-C Department of Orthopaedics Orthopaedics [address] [facility] [address] Dept: [phone] Dept October 26, 2021 CHIEF COMPLAINT: New and Fracture of the Left Elbow Ms. Monique Acevedo is a 35 year old female she presents with left elbow pain that started suddenly about 10 days ago. Patient states she was dancing at the wrist fast and awoke in the next day withdiscomfort in her left elbow. Left elbow pain got worse over the next few days. Patient was seen inthe urgent care and told that she had multiple fractures of the elbow. She was placed in a long-armsplint. Pain today is a 10 out of 10 sharp, aching, dullness. Patient is right-hand dominant and works as an [employer]. She denies any previous left elbow injuries. She is concerned about rheumatoid arthritis, her mother has RA and the patient has been experiencing a lot of joint pain. ASSESSMENT: M77.02 Medial epicondylitis of left elbow (primary encounter diagnosis) Z82.69 Family history of rheumatism PLAN: We will get her out of the splint today. We will provide her with some compression dressing for the elbow. Encouraging gentle motion and icing. We will do an oral steroid taper as well as some ibuprofen to help with pain and discomfort. If pain persist we can certainly try a corticosteroid injection. Patient agrees to plan. Ms. Monique Acevedo was advised as to contrast therapies and/or to take analgesics/anti-inflammatories as needed and all contraindications were reviewed. OBJECTIVE: Ms. Monique Acevedo is a pleasant 35 year old in no apparent distress. Gen:LMP 08/25/2021 nl development, obese, no deformities ENT: Normocephalic, normal hearing, moist mucosa CV: Pulses:Radial= 2+ and symmetric, capillary refill < 2 secs, no peripheral edema/varicosities Skin: no rash, bruising or lesions. Good turgor. Psych: cooperative and appropriate, alert and oriented x 3, good mood and affect. Musculoskeletal: left Elbow: - There is not bruising about the elbow - The skin is normal - There is not swelling about the elbow - There is not tenderness over the lateral epicondyle - There is tenderness over the medial epicondyle - There is not tenderness over the olecranon - There is not tenderness over the triceps insertion - There is not tenderness over the radial head - There is pain with finger flexion only - Tinels sign over the ulnar nerve is negative - Sensation in the hand is normal - The distal biceps tendon is is not tender - Extension is to 5 degrees - Extension is painful - Flexion is to 140 - Flexion is painful - Pronation is to 130 - Pronation is painful - Supination is to 120 - Supination is painful - Bicep strength is 4/5- limited by pain - Tricep strength is 4/5- limited by pain - Cervical ROM does not produce elbow pain - Shoulder ROM does not produce elbow pain - Distal pulses present Imaging: Outside images, [facility] [place] X-rays left elbow 3 view 10/23/21 No evidence of fracture or dislocation, no arthritis of the elbow. Large calcific patient is noted near the medial epicondyle. Supporting Subjective Information Below: Past Surgical History: PAST SURGICAL HISTORY Procedure Laterality Date DELIVERY ONLY 2004,2005, 2012,2014 , low cervical TUBAL LIGATION 2014 Medications: Current Outpatient Medications Medication Sig albuterol HFA (PROVENTIL HFA, VENTOLIN HFA) 90 mcg/actuation inhaler Inhale 2 Puffs as instructed every 4 hours as needed for wheezing/shortness of breath. L. acidophilus,casei,rhamnosus 50 billion cell cpDR Take 1 capsule by mouth once daily. ibuprofen (MOTRIN) 600 mg tablet Take by mouth. predniSONE (DELTASONE) 10 mg tablet 6 tabs po day 1 and 2, then 5 tabs day 3 and 4, 4 tabs day 5 and 6, 3 tabs day 7 and 8, 2 tabs day 9 and 10, 1 tab day 11 and 12. miSOPROStol (CYTOTEC) 200 mcg tablet Insert 2 tablets vaginally night prior to procedure and 2 tablets morning of procedure. Each dose should be in vagina for 6-8 hours. (Patient not taking: Reportedon 10/26/2021 ) dulaglutide (TRULICITY) 0.75 mg/0.5 mL pen injector Inject 0.75 mg subcutaneously one time a week. Inject dose once per week. Discard Pen After (Patient not taking: Reported on 09/10/2021 ) Yvplryfxpzbeidy-Vwkmshzbn-VW (BROMFED DM) 2-30-10 mg/5 mL syrup Take 10 mL by mouth three times daily as needed. (Patient not taking: Reported on 10/26/2021 ) No current facility-administered medications for this visit. Allergies: Patient has no known allergies. ROS: General (negative for fatigue, malaise, weight loss/gain) HEENT (negative for headache, earache, recent vision changes, sinus pain, sore throat) Respiratory (no recent shortness of breath, hemoptysis) CV (negative for chest tightness, palpitations) Musculoskeletal (see HPI) Psych (no depression, anxiety) This note was partially generated using knowNormal voice recognition system, and there may be some incorrect words, spellings, and punctuation that were not noted in checking the note before saving. Deedee Cotton PA-C * Myah Aquino Ma - 10/26/2021 1:23 PM EDT Patient presents with: Left Elbow - New, Fracture AMB ROOMING INTAKE FLOWSHEET DATA Risk Screening Do you have concerns about personal safety or safety in the home?: No Pain Pain Level: 6 Pain Location: Elbow-Left Description: Aching, Dull, Sharp Duration Amount of Time: 10 Duration Units: Days Frequency: Continuous Intervention/Comfort measure: Medication, Splinting Patient states last Tuesday she was at [facility] and started the having discomfort in her left elbow the following day. Continued to work last week and on Tuesday she had increase pain and seen at [facility] here in [place]. States she was unable to move or flex her elbow. No specific injury. She is right hand dominant. 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 She was splinted on riday but took her splint off yesterday due to her splint felt tight and her hand was swollen. Mom and Daughter with patient today. Patient hand carried copy of her x-rays. documented in this encounterLake[facility]04-28-2022 Instructions* Patient Instructions* Savannah Valverde APRN.ACADEMIC INTERN - 09/10/2021 10:18 AM EDT Minimizing irritation of the vulva (area around the vagina) Wear white cotton underwear. Avoid synthetic fabrics and tight clothing. Sleep wearing shorts or pajama bottoms without underwear. Shower as soon as possible after exercise. Avoid clothing detergents and soaps with perfumes or dyes. Use warm (not hot) water to wash the vulva and if you use soap use a product designed for sensitive skin (like Dove or Cetaphil). Do not douche or use creams/powders in the vulvar area unless instructed by your physician. If you must douche, use only plain warm water. Make sure the vulva is dry before dressing by patting dry with a towel. Avoid vigorous rubbing withthe towel. You may want to use the blow dryer (on the cool setting only!) on the vulva. The most important way to let your body heal is by avoiding scratching. Many patients find it difficult to avoid scratching at night when they are most aware of the itchiness. You can try taking Benadryl just before bedtime. Some women find it helpful to wear cotton gloves to bed to avoid scratching at night. documented in this encounterLakehealth [facility] Center04-28-2022 History of Present illness Narrative* Savannah Valverde APRN.CNP - 09/10/2021 10:00 AM EDT Monique Acevedo is a 35 year old female who presents for problem visit HPI: One month ago, she noticed BF had a prescription for an antibiotic and had a shot moustapha to hip.He was not open with information so she requests STD testing since she is now having vaginal symptoms. She has had symptoms of pelvic heaviness, milky discharge and fishy odor for past 2 weeks. Usingvaginal boric acid for vaginal health. Menses are every 28-30 days but flow has been heavy since of triplets 6 years ago. + cramping. Has had BTL but interested in IUD again to control menses. OB History T2 L6 SAB0 IAB0 Ectopic0 Multiple1 Live Births6 Lead Inspector History LMP: 08/25/2021, Having periods Age at Menarche: Age at First : Age at Menopause: Lead Inspector History Comments: Sexual Activity: Yes; Male Contraception: Tubal Ligation PAST MEDICAL HISTORY Diagnosis Date Anxiety Diabetes (HCC) diagnosed 2012 Infection of tooth 2014 Insulin dependent gestational diabetes mellitus, antepartum 10/22/2014 Major depressive disorder, single episode, unspecified remote 2004 Migraine, unspecified, without mention of intractable migraine without mention of status migrainosus no aura Obesity, unspecified PTSD (post-traumatic stress disorder) Tobacco use disorder quit 08/2014 Tobacco use in , antepartum 10/22/2014 Triplet in third trimester 10/22/2014 Unspecified asthma(493.90) occasional inhaler use Uterine rupture 06/18/2014 History of uterine rupture, per patient, diagnosed at the time of her second c- section. Third was scheduled at 36 weeks PAST SURGICAL HISTORY Procedure Laterality Date DELIVERY ONLY 2004,2005, 2012,2014 , low cervical TUBAL LIGATION 2014 FAMILY HISTORY Problem Relation Age of Onset Asthma Mother Headache Mother migraine Asthma Sister Psychiatry Sister bipolar, anxiety, OCD No Known Problems Brother Asthma Maternal Grandmother Hypertension Maternal Grandmother Coronary Artery Disease Maternal Grandfather Social History Tobacco Use Smoking status: Current Every Day Smoker Packs/day: 1.00 Years: 11.00 Pack years: 11.00 Types: Cigarettes Last attempt to quit: 08/17/2014 Years since quittin.0 Smokeless tobacco: Never Used Vaping Use Vaping Use: Never used Substance Use Topics Alcohol use: Yes Comment: socially Drug use: Yes Frequency: 1.0 times per week Types: Marijuana Comment: once daily or+ Current Outpatient Medications Medication Sig dulaglutide (TRULICITY) 0.75 mg/0.5 mL pen injector Inject 0.75 mg subcutaneously one time a week. Inject dose once per week. Discard Pen After (Patient not taking: Reported on 09/10/2021 ) albuterol HFA (PROVENTIL HFA, VENTOLIN HFA) 90 mcg/actuation inhaler Inhale 2 Puffs as instructed every 4 hours as needed for wheezing/shortness of breath. Jvvpappkguqkoop-Yvzhcxvnj-HG (BROMFED DM) 2-30-10 mg/5 mL syrup Take 10 mL by mouth three times daily as needed. L. acidophilus,casei,rhamnosus 50 billion cell cpDR Take 1 capsule by mouth once daily. ibuprofen (MOTRIN) 600 mg tablet Take by mouth. No current facility-administered medications for this visit. Allergies As of Date: 09/10/2021 (No Known Allergies) Fully Assessed 09/10/2021 REVIEW OF SYSTEMS Abdomen: No bloating, early satiety, indigestion, or increased flatulence. No abdominal pain, nausea, vomiting, diarrhea, or constipation. Bladder: No dysuria, gross hematuria, urinary frequency, urinary urgency, or incontinence. Allergies and current medication updated:Yes EXAM: BP 132/82 Wt 241 lb (109.3kg) LMP 08/25/2021 GENERAL: pleasant, female in no apparent distress CHEST: Normal inspiratory effort ABDOMEN: soft, non-tender and no masses PELVIC: external genitalia normal, normal Bartholin's glands, urethra, [place]'s glands, no vulvar lesions, no cervical lesions, small amount milky white discharge present, normal appearing perineal body and perianal region BIMANUAL: uterus normal size, shape and consistency, no adnexal masses and non- tender. No CMT. NEURO: alert and oriented x3,exam grossly non-focal ASSESSMENT/PLAN: 1. Vaginal discharge - ICD9: 623.5, ICD10: N89.8 (primary diagnosis) - BACT/BAILEY VAG GRAM STAIN - GC/CHLAMYDIA DNA DET - TRICHOMONAS PREP/ANTIGEN - vulvar hygiene instructions 2. Vaginal odor - ICD9: 625.8, ICD10: N89.8 - BACT/BAILEY VAG GRAM STAIN - GC/CHLAMYDIA DNA DET 3. Screen for STD (sexually transmitted disease) - ICD9: V74.5, ICD10: Z11.3 - GC/CHLAMYDIA DNA DET - TRICHOMONAS PREP/ANTIGEN 4. Menorrhagia with regular cycle - ICD9: 626.2, ICD10: N92.0 - INSERT INTRAUTERINE DEVICE - Vaginal cytotec 5. Dysmenorrhea - ICD9: 625.3, ICD10: N94.6 - INSERT INTRAUTERINE DEVICE Will notify of results. Follow- up as needed and at IUD insertion.. Savannah Valverde APRN.CNP Medical Decision Making: Problems: Low: Acute, uncomplicated illness or injury Moderate: 1+ chronic illnesses with change Data: Unique test(s) ordered: 3+ Risk: Moderate: Drug management Medical Decision Making Level: 4 - Moderate [facility] of Past illness Narrative* Problem Noted Date Resolved Date Infection of tooth 2014 03/24/2021 Tobacco use in , antepartum 10/22/2014 03/24/2021 Insulin dependent gestational diabetes mellitus, antepartum 10/22/2014 03/24/2021 Hyperemesis arising during 06/18/2014 10/17/2014 Overview: Patient presented with abdominal pain, nausea,vomiting and diarrhea She is 13 weeks Nausea might be from underlying ,to rule of pancreatitis, gastroenteritis, molar Plan: US abdomen CBC, CMP,lactate, Dr Anderson on board Dr Rucker on consult On diabetic diet IV fluids SUMMARY 06/18/2014 10/17/2014 Uterine rupture 06/18/2014 03/24/2021 Overview: History of uterine rupture, per patient, diagnosed at the time of her second . Third was scheduled at 36 weeks Type II or unspecified type diabetes mellitus without mention of complication, uncontrolled 02/08/2014 08/15/2014 Migraine without aura, witho ut mention of intractable migraine without mention of status migrainosus 07/19/2007 015 Open wound of other and unsp ecified parts of trunk, complicated 07/23/2005 09/02/2005 Major depressive disorder, single episode, unspe cified 10/17/2014 Migraine, unspecified, witho ut mention of intractable migraine without mention of status migrainosus 008 Obesity, unspecified 02/08/2014 Migraine, unspecified, witho ut mention of intractable migraine without mention of status migrainosus 014 documented as of this encounter (statuses as of 09/10/2021) [facility] Past illness Narrative* Problem Noted Date Resolved Date Infection of tooth 2014 03/24/2021 Tobacco use in , antepartum 10/22/2014 03/24/2021 Insulin dependent gestational diabetes mellitus, antepartum 10/22/2014 03/24/2021 Hyperemesis arising during 06/18/2014 10/17/2014 Overview: Patient presented with abdominal pain, nausea,vomiting and diarrhea She is 13 weeks Nausea might be from underlying ,to rule of pancreatitis, gastroenteritis, molar Plan: US abdomen CBC, CMP,lactate, Dr Anderson on board Dr Rucker on consult On diabetic diet IV fluids SUMMARY 06/18/2014 10/17/2014 Uterine rupture 06/18/2014 03/24/2021 Overview: History of uterine rupture, per patient, diagnosed at the time of her second . Third was scheduled at 36 weeks Type II or unspecified type diabetes mellitus without mention of complication, uncontrolled 02/08/2014 08/15/2014 Migraine without aura, witho ut mention of intractable migraine without mention of status migrainosus 07/19/2007 015 Open wound of other and unsp ecified parts of trunk, complicated 07/23/2005 09/02/2005 Major depressive disorder, single episode, unspe cified 10/17/2014 Migraine, unspecified, witho ut mention of intractable migraine without mention of status migrainosus 008 Obesity, unspecified 02/08/2014 Migraine, unspecified, witho ut mention of intractable migraine without mention of status migrainosus 014 documented as of this encounter (statuses as of 10/26/2021) [facility] of Past illness Narrative* Problem Noted Date Resolved Date Infection of tooth 2014 03/24/2021 Tobacco use in , antepartum 10/22/2014 03/24/2021 Insulin dependent gestational diabetes mellitus, antepartum 10/22/2014 03/24/2021 Hyperemesis arising during 06/18/2014 10/17/2014 Overview: Patient presented with abdominal pain, nausea,vomiting and diarrhea She is 13 weeks Nausea might be from underlying ,to rule of pancreatitis, gastroenteritis, molar Plan: US abdomen CBC, CMP,lactate, Dr Anderson on board Dr Rucker on consult On diabetic diet IV fluids SUMMARY 06/18/2014 10/17/2014 Uterine rupture 06/18/2014 03/24/2021 Overview: History of uterine rupture, per patient, diagnosed at the time of her second . Third was scheduled at 36 weeks Type II or unspecified type diabetes mellitus without mention of complication, uncontrolled 02/08/2014 08/15/2014 Migraine without aura, witho ut mention of intractable migraine without mention of status migrainosus 07/19/2007 015 Open wound of other and unsp ecified parts of trunk, complicated 07/23/2005 09/02/2005 Major depressive disorder, single episode, unspe cified 10/17/2014 Migraine, unspecified, witho ut mention of intractable migraine without mention of status migrainosus 008 Obesity, unspecified 02/08/2014 Migraine, unspecified, witho ut mention of intractable migraine without mention of status migrainosus 014 documented as of this encounter (statuses as of 11/10/2021) [facility] of Past illness Narrative* Problem Noted Date Resolved Date Infection of tooth 2014 03/24/2021 Tobacco use in , antepartum 10/22/2014 03/24/2021 Insulin dependent gestational diabetes mellitus, antepartum 10/22/2014 03/24/2021 Hyperemesis arising during 06/18/2014 10/17/2014 Overview: Patient presented with abdominal pain, nausea,vomiting and diarrhea She is 13 weeks Nausea might be from underlying ,to rule of pancreatitis, gastroenteritis, molar Plan: US abdomen CBC, CMP,lactate, Dr Anderson on board Dr Rucker on consult On diabetic diet IV fluids SUMMARY 06/18/2014 10/17/2014 Uterine rupture 06/18/2014 03/24/2021 Overview: History of uterine rupture, per patient, diagnosed at the time of her second . Third was scheduled at 36 weeks Type II or unspecified type diabetes mellitus without mention of complication, uncontrolled 02/08/2014 08/15/2014 Migraine without aura, witho ut mention of intractable migraine without mention of status migrainosus 07/19/2007 015 Open wound of other and unsp ecified parts of trunk, complicated 07/23/2005 09/02/2005 Major depressive disorder, single episode, unspe cified 10/17/2014 Migraine, unspecified, witho ut mention of intractable migraine without mention of status migrainosus 008 Obesity, unspecified 02/08/2014 Migraine, unspecified, witho ut mention of intractable migraine without mention of status migrainosus 014 documented as of this encounter (statuses as of 03/19/2022) [facility] of Past illness Narrative* Problem Noted Date Resolved Date Infection of tooth 2014 03/24/2021 Tobacco use in , antepartum 10/22/2014 03/24/2021 Insulin dependent gestational diabetes mellitus, antepartum 10/22/2014 03/24/2021 Hyperemesis arising during 06/18/2014 10/17/2014 Overview: Patient presented with abdominal pain, nausea,vomiting and diarrhea She is 13 weeks Nausea might be from underlying ,to rule of pancreatitis, gastroenteritis, molar Plan: US abdomen CBC, CMP,lactate, Dr Anderson on board Dr Rucker on consult On diabetic diet IV fluids SUMMARY 06/18/2014 10/17/2014 Uterine rupture 06/18/2014 03/24/2021 Overview: History of uterine rupture, per patient, diagnosed at the time of her second . Third was scheduled at 36 weeks Type II or unspecified type diabetes mellitus without mention of complication, uncontrolled 02/08/2014 08/15/2014 Migraine without aura, witho ut mention of intractable migraine without mention of status migrainosus 07/19/2007 015 Open wound of other and unsp ecified parts of trunk, complicated 07/23/2005 09/02/2005 Major depressive disorder, single episode, unspe cified 10/17/2014 Migraine, unspecified, witho ut mention of intractable migraine without mention of status migrainosus 008 Obesity, unspecified 02/08/2014 Migraine, unspecified, witho ut mention of intractable migraine without mention of status migrainosus 014 documented as of this encounter (statuses as of 05/18/2022) [facility] of Past illness Narrative* Problem Noted Date Resolved Date Infection of tooth 2014 03/24/2021 Tobacco use in , antepartum 10/22/2014 03/24/2021 Insulin dependent gestational diabetes mellitus, antepartum 10/22/2014 03/24/2021 Hyperemesis arising during 06/18/2014 10/17/2014 Overview: Patient presented with abdominal pain, nausea,vomiting and diarrhea She is 13 weeks Nausea might be from underlying ,to rule of pancreatitis, gastroenteritis, molar Plan: US abdomen CBC, CMP,lactate, Dr Anderson on board Dr Rucker on consult On diabetic diet IV fluids SUMMARY 06/18/2014 10/17/2014 Uterine rupture 06/18/2014 03/24/2021 Overview: History of uterine rupture, per patient, diagnosed at the time of her second . Third was scheduled at 36 weeks Type II or unspecified type diabetes mellitus without mention of complication, uncontrolled 02/08/2014 08/15/2014 Migraine without aura, witho ut mention of intractable migraine without mention of status migrainosus 07/19/2007 015 Open wound of other and unsp ecified parts of trunk, complicated 07/23/2005 09/02/2005 Major depressive disorder, single episode, unspe cified 10/17/2014 Migraine, unspecified, witho ut mention of intractable migraine without mention of status migrainosus 008 Obesity, unspecified 02/08/2014 Migraine, unspecified, witho ut mention of intractable migraine without mention of status migrainosus 014 documented as of this encounter (statuses as of 09/09/2022) [facility] of Past illness Narrative* Problem Noted Date Resolved Date Infection of tooth 2014 03/24/2021 Tobacco use in , antepartum 10/22/2014 03/24/2021 Insulin dependent gestational diabetes mellitus, antepartum 10/22/2014 03/24/2021 Hyperemesis arising during 06/18/2014 10/17/2014 Overview: Patient presented with abdominal pain, nausea,vomiting and diarrhea She is 13 weeks Nausea might be from underlying ,to rule of pancreatitis, gastroenteritis, molar Plan: US abdomen CBC, CMP,lactate, Dr Anderson on board Dr Rucker on consult On diabetic diet IV fluids SUMMARY 06/18/2014 10/17/2014 Uterine rupture 06/18/2014 03/24/2021 Overview: History of uterine rupture, per patient, diagnosed at the time of her second . Third was scheduled at 36 weeks Type II or unspecified type diabetes mellitus without mention of complication, uncontrolled 02/08/2014 08/15/2014 Migraine without aura, witho ut mention of intractable migraine without mention of status migrainosus 07/19/2007 015 Open wound of other and unsp ecified parts of trunk, complicated 07/23/2005 09/02/2005 Major depressive disorder, single episode, unspe cified 10/17/2014 Migraine, unspecified, witho ut mention of intractable migraine without mention of status migrainosus 008 Obesity, unspecified 02/08/2014 Migraine, unspecified, witho ut mention of intractable migraine without mention of status migrainosus 014 documented as of this encounter (statuses as of 09/11/2022) [facility] No data available for this section [facility] Evaluation note* Diagnosis Onset Date Resolution Status Acute bronchitis, unspecified acute [facility] Work Phone: Evaluation note* Diagnosis Vaginal discharge- Primary Leukorrhea, not specified as infective Vaginal odor Unspecified symptom associated with female genital organs Screen for STD (sexually transmitted disease) Screening examination for venereal disease Menorrhagia with regular cycle Excessive or frequent menstruation Dysmenorrhea documented in this encounter [facility] note* Diagnosis Medial epicondylitis of left elbow- Primary Medial epicondylitis of elbow Family history of rheumatism documented in this encounter [facility] note* Diagnosis Obesity, Class II, BMI 35-39.9- Primary Obesity, unspecified Type 2 diabetes mellitus without complication, without long-term current use of insulin ([facility]) documented in this encounter [facility] note* Diagnosis NO SHOW- Primary documented in this encounter [facility] note* Diagnosis Vaginal discharge- Primary Leukorrhea, not specified as infective Folliculitis Other specified disease of hair and hair follicles Screen for STD (sexually transmitted disease) Screening examination for venereal disease Type 2 diabetes mellitus with other specified complication, without long-term current use of insulin (HCC) Class 2 severe obesity with serious comorbidity and body mass index (BMI) of 37.0 to 37.9 in adult, unspecified obesity type (HCC) documented in this encounter [facility] note* Diagnosis Onset Date Resolution Status Hyperglycemia acute Urinary tract infection [facility] Work Phone: Evaluation note* Diagnosis Poorly controlled type 2 diabetes mellitus (HCC)- Primary Type II or unspecified type diabetes mellitus without mention of complication, not stated as uncontrolled documented in this encounter [facility] note* Diagnosis COVID-19 SOB (shortness of breath) Shortness of breath History of pulmonary embolism Personal history of pulmonary embolism documented in this encounter [facility] Discharge instructions No data available for this section [facility] Reason for referral (narrative)* Outpatient Procedure (Routine) - Pending Review Specialty Diagnoses / Procedures Referred By Phuong martinez Referred To Contact [facility] Diagnoses Menorrhagia with regular cycle Dysmenorrhea Procedures INSERT INTRAUTERINE DEVICE LEVONORGESTREL IU 52MG 5 YR INSERT INTRAUTERINE DEVICE Savannah Valverde APRN.CNP [address] [place] [address] [facility] [address] [place] [address] Referral ID Status Reason Start Date Expiration Date Visits Requested Visits Authorized [id number] Pending Review Auto-Generat ed Referral 09/10/2021 09/10/2022 1 1 [facility] note* SERJIO Roberto: PERFORM Event Display: Patient Summary Documents Authored Date: [id number] [facility] Summary Purpose Family History No Family History Records FoundNo Family History Records FoundNo Family History Records Found No data available for this section No data available for this section No Family History Records FoundNo Family History Records FoundNo Family History Records Found Advance Directives No Advanced Directives Records Found Advance Directive Response Recorded Date/ Time Living Will No October 10, 2020 5 :42am Power of Tool And Die Repairer No October 10, 2020 5:42am Advance Directive Response Recorded Date/ Time Living Will No October 10, 2020 4 :42am Power of Tool And Die Repairer No October 10, 2020 4:42am Chief Complaint and Reason for Visit Chief Complaint CHEST CONGESTION CHEST XRAY Reason for Visit Acute bronchitis, un specified Chief Complaint Urinary tract infect ion Reason for Visit Hyperglycemia Urinary tract infection Reason for Referral Specialty Diagnoses / Procedures Referred By Contac t Referred To Contact Diagnoses Poorly controlled type 2 diabetes mellitus (HCC) Procedures ENDOCRINOLOGY DIETITIAN VISIT (MNT) MEDICAL NUTRITION ASSMT&IVNTJ INDIV EACH 15 NH MEDICAL NUTRITION ASSMT&IVNTJ INDIV EACH 15 [place] MEDICAL NUTRITION ASSMT&IVNTJ INDIV EACH 15 [place] MEDICAL NUTRITION ASSMT&IVNTJ INDIV EACH 15 NH Lupe Gutierrez CONSERVATION AGENT.ACADEMIC INTERN [address] [place] [address] Referral ID Status Reason Start Date Expiration Date Visits Requested Visits Authorized [id number] Authorized PCP Requested Referral 09/08/2022 09/08/2023 1 1 Specialty Diagnoses / Procedures Referred By Phuong martinez Referred To Contact Diagnoses Obesity, Class II, BMI 35-39.9 Type 2 diabetes mellitus without complication, without long-term current use of insulin (HCC) Procedures CONSULT [facility] OFFICE/OUTPATIENT NEW HIGH MDM 60-74 MINUTES Older, JONG Melgar.ACADEMIC INTERN [address] [place] [address] Referral ID Status Reason Start Date Expiration Date Visits Requested Visits Authorized [id number] Authorized PCP Requested Referral 11/10/2021 11/10/2022 1 1 Additional Source Comments INFORMATION SOURCE (unrecogn ized section and content) DATE CREATED AUTHOR 12/04/2019 [facility] DATE CREATED AUTHOR AUTHOR'S ORGANIZ ATION 05/01/2020 [facility] DATE CREATED AUTHOR AUTHOR'S ORGANIZ ATION 06/03/2022 [facility] DATE CREATED AUTHOR AUTHOR'S ORGANIZ ATION 03/30/2023 [facility] ([place]) DATE CREATED AUTHOR AUTHOR'S ORGANIZ ATION 04/16/2023 [facility] DATE CREATED AUTHOR AUTHOR'S ORGANIZ ATION 05/30/2024 [facility] Goals (unrecognized section and content) Goals may be documented in a n alternate section Source Comments (unrecognize d section and content) In the event this informatio n is protected by the Federal Confidentiality of Alcohol and Drug Abuse Patient Records regulations: The Federal rules restrict any use of the information to criminally investigate or prosecute any alcohol or drug abuse patient.[facility] the event this information is protected by the Federal Confidentiality of Alcohol and Drug Abuse Patient Records regulations: The Federal rules restrict any use of the information to criminally investigate or prosecute any alcohol or drug abuse patient.[facility] the event this information is protected by the Federal Confidentiality of Alcohol and Drug Abuse Patient Records regulations: The Federal rules restrict any use of the information to criminally investigate or prosecute any alcohol or drug abuse patient.[facility] the event this information is protected by the Federal Confidentiality of Alcohol and Drug Abuse Patient Records regulations: The Federal rules restrict any use of the information to criminally investigate or prosecute any alcohol or drug abuse patient.[facility] the event this information is protected by the Federal Confidentiality of Alcohol and Drug Abuse Patient Records regulations: The Federal rules restrict any use of the information to criminally investigate or prosecute any alcohol or drug abuse patient.[facility] Center[facility] the event this information is protected by the Federal Confidentiality of Alcohol and Drug Abuse Patient Records regulations: The Federal rules restrict any use of the information to criminally investigate or prosecute any alcohol or drug abuse patient.[facility] Center[facility] the event this information is protected by the Federal Confidentiality of Alcohol and Drug Abuse Patient Records regulations: The Federal rules restrict any use of the information to criminally investigate or prosecute any alcohol or drug abuse patient.[facility] Center[facility] the event this information is protected by the Federal Confidentiality of Alcohol and Drug Abuse Patient Records regulations: The Federal rules restrict any use of the information to criminally investigate or prosecute any alcohol or drug abuse patient.[facility] Reason for Visit (unrecogniz ed section and content) Reason Comments STD Reason Comments New Fracture Reason Comments Orders Reason Comments No Show Reason Comments Vaginal Problem Reason Comments Diabetes Type 2 diabetes Reason Comments Results Care Teams (unrecognized sec tion and content) Longwall Foreman Relationship Specialty Start Date End Date Geoffrey White MD [address] [place] [address] PCP - General Internal Medicine 03/24/21 Longwall Foreman Relationship Specialty Start Date End Date Geoffrey White MD [address] [place] [address] PCP - General Internal Medicine 03/24/21 Longwall Foreman Relationship Specialty Start Date End Date Geoffrey White MD [address] [place] [address] PCP - General Internal Medicine 03/24/21 Longwall Foreman Relationship Specialty Start Date End Date Geoffrey White MD [address] [place] [address] PCP - General Internal Medicine 03/24/21 Longwall Foreman Relationship Specialty Start Date End Date Geoffrey White MD [address] [place] [address] PCP - General Internal Medicine 03/24/21 Team Status: Active Member Role Status Dates No Primary Care Physician Family Provider Active Dr. Geoffrey White MD Primary Care Provider Active Team Status: Inactive Member Role Status Dates Dr. Geoffrey White MD Primary Care Provider, Referring Provider Active David WRIGHT, PA Attending Provider Active Team Status: Inactive Member Role Status Dates Dr. Geoffrey White MD Primary Care Provider Active ADRIANA Curiel Attending Provider, Referring Provi sally Active Longwall Foreman Relationship Specialty Start Date End Date Geoffrey White MD [address] [place] [address] PCP - General Internal Medicine 03/24/21 Longwall Foreman Relationship Specialty Start Date End Date Geoffrey White MD [address] [place] [address] PCP - General Internal Medicine 03/24/21 Care Team (unrecognized sect ion and content) Care Team Personnel Name: GEOFFREY WHITE MD Member Role: Primary Care Physician Address: Address: [address] [place] [address] Care Team Related Persons Name: SHRUTHI GRIGGS Name: SHRUTHI GRIGGS Name: SHRUTHI ZHANG Name: OSMEL SONI Name: RITESH ACEVEDO Address: Home [address] [place] [address] Care Team Personnel Name: GEOFFREY WHITE MD Member Role: Primary Care Physician Address: Address: [address] [place] [address] Care Team Related Persons Name: SHRUTHI GRIGGS Name: SHRUTHI GRIGGS Name: SHRUTHI ZHANG Name: OSMEL SONI Name: RITESH ACEVEDO Address: [address] FOR RECORDS PERTAINING TO PATIENTS WHO ARE OR HAVE BEEN ENROLLED IN A CHEMICAL DEPENDENCY/SUBSTANCEABUSE PROGRAM, SOME INFORMATION MAY BE OMITTED. This clinical summary was aggregated from multiple sources. Caution should be exercised in using it in the provision of clinical care. This summary normalizes information from multiple sources, and as a consequence, information in this document may materially change the coding, format and clinical context of patient data. In addition, data may be omitted in some cases. CLINICAL DECISIONS SHOULD BE BASED ON THE PRIMARY CLINICAL RECORDS. [employer] provides no warranty or guarantee of the accuracy or completeness of information in this document.
[2024-11-03] MEDS: Cephalexin 250 MG Capsule 500 MG PO (14:08)
[2024-11-03] MEDS: Smz/Tmp Ds Tablet 1 TABLET PO (14:08)
[2024-11-03] MEDS: Lidocaine 1% (20 ml mdv) 20 ML Vial INFILT (14:08)
[2024-11-03] MEDS: Ibuprofen 600 MG Tablet PO (14:08)
== END 2024-11-03 15:10 | disposition home or self-care (01) ==
PROVIDERS: Emergency Provider Emergency Medicine; PCP Nurse Practitioner Family; Visit Provider Emergency Medicine
DX: L03.211 Cellulitis of face (principal); E11.9 Type 2 diabetes mellitus without complications; F17.210 Nicotine dependence, cigarettes, uncomplicated
CPT/HCPCS: 10160; 99282

== ENCOUNTER 2024-12-09 19:54 | Emergency (ER) | payer SELFPAY ==
[2024-12-09 19:55] VITALS: BP 134/95; PULSE 109; RESP 18; TEMP 36.7; O2SAT 98
[2024-12-09 20:08] VITALS: BMI 34.7
--- NOTE | 2024-12-09 20:24 | EDS_ITS ---
HPI HPI - Fall History of Present Illness Chief Complaint: Fall Narrative Narrative: 39-year-old female presents with injury to her left knee and low back that she sustained this morning at 8 AM, approximately 12 hours ago when she fell down the basement stairs. There is a loose stair and she only fell down 3 or 4 stairs. No hitting of her head or loss of consciousness. She was able to get up and go about her day, however things started tightening up. She states that she was unable to get up at 1 point because of pain in her posterior knee. She may have felt a pop in that area. Additionally, she has pain in her low back is worse with movement where she hit it against the stairs. She denies other injuries. [facility] Medical History Contact with and (suspected) exposure to other viral communicable diseases Acute pharyngitis, unspecified Acute bronchitis, unspecified Sebaceous cyst of left axilla Encounter for screening for COVID-19 Home Medications ?Medication ?Instructions ?Recorded ?Last Taken ?Type ibuprofen 600 mg tablet 600 mg PO Q6H PRN PRN Pain S core 10/10/20 Unknown Rx 1-02/22 #20 tabs cephalexin 500 mg capsule 500 mg PO Q6 #20 CAPSULES Unknown Rx ibuprofen 600 mg tablet 600 mg PO Q6H PRN PRN pain # 20 11/03/24 Unknown Rx TABLETS sulfamethoxazole 800 1 tab PO BID #10 TABLETS Unknown Rx mg-trimethoprim 160 mg tablet cyclobenzaprine 10 mg tablet 10 mg PO TID PRN Muscle S pasm #20 12/09/24 Unknown Rx TABLETS naproxen 500 mg tablet (Naprosyn) 500 mg PO BID PRN pa in #20 tabs 12/09/24 Unknown Rx Allergy/AdvReac Type Severity Reaction Status Date / Time No Known Allergies Allergy Verified 12/09/24 19:55 Surgical History History of Social History Smoking Status: Current every day smoker tobacco type: cigarettes alcohol intake: never ROS ROS ED ROS Narrative Review of systems positive for low back pain worse with movement, left posterior knee pain also worse with movement. Positive spasming of left lower extremity. Denies other injuries. No loss of bowel or bladder. No hitting of head, no l oss of consciousness. EXAM Physical Exam Narrative Exam Narrative: GCS 15. ABCs are intact. Cardiovascular examination reveals mild tachycardia just above 100 bpm. Lungs are clear to auscultation bilaterally. Abdomen is soft and nontender with normoactive bowel sounds. Mild tenderness to palpation diffusely lumbar spine area. No noted ecchymosis. No bony step-off. She is neurovascular tact of the bilateral lower extremities, EHL intact bilaterally. Diffuse tenderness to palpation left knee both anteriorly and posteriorly, no noted ecchymosis. Palpable dorsalis pedis pulse, left. Const Vital Signs: 12/09/24 19:55 12/09/24 20:09 Temperature 98.1 F Temperature Source Oral Pulse Rate 109 H Respiratory Rate 18 Respiratory Effort Normal Non-Labored Respiratory Depth Normal Respiratory Pattern Normal Blood Pressure 134/95 H Blood Pressure Mean 108 Pulse Ox 98 Oxygen Delivery Method Room Air MDM MDM MDM Narrative Medical decision making narrative: Differential diagnosis includes but not limited to fracture of lumbar spine including compression fracture versus contusion versus vertebral process fracture. She may have more of a knee contusion or internal derangement of the left knee versus muscle strain versus spasm. Patient has had bilateral tubal ligation and states she is not . She was administered Toradol and Norflex initially intramuscularly for analgesia and x-rays were obtained of the lumbar spine and of the left knee. My individual interpretation of the x-rays of the lumbar spine, there is no evidence of acute fracture. I reviewed the radiology report which confirms my independent interpretation. Additionally on my individual interpretation of the left knee, no fracture or effusion. Once again I reviewed the radiology report which confirms my independent interpretation. Upon repeat examination, she states she feels more relaxed but is still having some pain in the posterior aspect of her left knee. She is able to raise her leg directly off the bed so I do not suspect a quadriceps tendon rupture. She will be placed in an Kyle wrap. She states that she has her mother's walker that she can use and does not want to use crutches. I feel she can be discharged to follow-up with her primary care provider. She was written prescriptions for Flexeril and naproxen. Return instructions to the emergency department were reviewed. Disposition is discharged home in stable condition. History & Record Review Discussion w/independent historian: Patient Additional record(s) reviewed:: Prior ED visit (Noncontributory to current chief complaint.) Radiography Diagnostic Testing: Clinical Impression(s) from Imaging Studies Knee X-Ray 12/09/24 20:30 IMPRESSION: Normal exam Reading Location: [place] [id number] Lumbar Spine X-Ray 12/09/24 20:30 IMPRESSION: No acute findings Reading Location: [facility] Discharge Plan Triage Chief Complaint: Fall ED Provider: Jatin Tolliver Dx/Rx/DC Orders Clinical Impression: Fall down stairs, Lumbar contusion, Posterior left knee pain Instructions: ED Back Contusion, ED Contusion, Lower Extremity, ED Fall Prevention Prescriptions: New naproxen [Naprosyn] 500 mg tablet 500 mg PO BID PRN (Reason: pain) Qty: 20 0RF cyclobenzaprine 10 mg tablet 10 mg PO TID PRN (Reason: Muscle Spasm) Qty: 20 0RF No Action ibuprofen 600 mg tablet 600 mg PO Q6H PRN PRN (Reason: Pain Score 1-10/10) Qty: 20 0RF sulfamethoxazole-trimethoprim 800-160 mg tablet 1 tab PO BID Qty: 10 0RF cephalexin 500 mg capsule 500 mg PO Q6 Qty: 20 0RF ibuprofen 600 mg tablet 600 mg PO Q6H PRN PRN (Reason: pain) Qty: 20 0RF Primary Care Provider: Sammie Paulino NP Referrals: Sammie Paulino NP, [employer]CHNICIAN[employer] [Primary Care Provider] - 3-5 Days if not improving Activity Restrictions/Additional Instructions: Continue ice and elevation of the left lower extremity when possible. Follow-up with your primary care provider. Medication as directed. Print Language: Citizen Of [place] Disposition Disposition: Home, Self Care
--- NOTE | 2024-12-09 20:30 | RAD_ITS ---
PROCEDURE: KNEE 4 OR MORE VIEWS 12/09/2024 REASON FOR EXAM: TRAUMA TECHNIQUE: KNEE 4 OR MORE VIEWS COMPARISON: No FINDINGS: No fracture, dislocation, or joint effusion. No degeneration. RAD/Knee 4 or More Views IMPRESSION: Normal exam Reading Location: [place] [id number]
--- NOTE | 2024-12-09 20:30 | RAD_ITS ---
PROCEDURE: LUMBAR SPINE 2 OR 3 VIEWS 12/09/2024 REASON FOR EXAM: TRAUMA TECHNIQUE: LUMBAR SPINE 2 OR 3 VIEWS COMPARISON: No FINDINGS: Mild lumbosacral scoliosis. Very mild lower lumbar spine degeneration, mainly L4 through S1 facet arthritis. Mild L5-S1 disc space narrowing. No acute fracture or dislocation. No soft tissue injury. RAD/Lumbar Spine 2 or 3 Views IMPRESSION: No acute findings Reading [facility]
[2024-12-09] MEDS: Ketorolac 30 MG/ML Syringe IM (20:43)
[2024-12-09] MEDS: Orphenadrine 60 MG/2 ML Ampul IM (20:43)
--- OUTSIDE RECORDS SUMMARY | 2024-12-09 20:55 | XMS RPT_ITS | CCD ---
Author Organization [facility] Care Team Providers Care Wine Pasteurizer Name Role Phone CINDY SPARKS, DR GEOFFREY [...] Unavailable DR GEOFFREY WHITE MD Primary Care UnavailDEL Hawkins DO Attending Unavailable AXEL ALFORD DO Primary Care Unavailable ALESSIA KAUR MD Attending Unavailable DR GEOFFREY WHITE MD Primary Care Unavailnamita MCLEOD MD, BRITNEY Rowe Attending Unavailable AXEL ALFORD DO Primary Care Unavailable GEOFFREY WHITE Primary Care Unavailable SAVANNAH VALVERDE Attending Unavailable LUPE GUTIERREZ Referring Unavailable GEOFFREY WHITE Primary Care Unavailable LUPE GUTIERREZ Attending Unavailable GEOFFREY WHITE Primary Care Unavailable Geoffrey White MD Primary Care Provider Lora AIRPLANE DESIGNER-C, Gideon Primary Care Provider [phone] Dr. Norman Martinez DO Emergency Provider Norman Martinez Attending Unavailable Lora PARKER, Gideon Primary Care Unavailable John Echevarria Attending Unavailable Lora AIRPLANE DESIGNER, Gideon Primary Care Unavailable Jatin Tolliver Attending Unavailable Lora PARKER, Gideon Primary Care Unavailable Medications Current Medications Medication Drug Class(es) Dates Sig (Normalized) Sig (Original) acetaminophen 325 mg / HYDROcodone bitartrate 5 mg oral tablet (5 sources) Opioid Agonist Start: 04-24-2022 acetaminophen-hydr ocodone 325 mg-5 mg oral tablet 0 Refill(s), 104.5 Start Date: 04/24/22 Status: Ordered Start: 12-06-2017 End: 12-12-2017 Hydrocodone-Acetaminophen 1 TABLET tablet Discontinued 1 {tbl} PO EVERY 6 HOURS NEEDED as needed for Pain 10 December 06, 2017 12:00am December 12, 2017 10:45am Start: 12-06-2017 End: 12-12-2017 take 1 tablet by mouth every six hours as needed Hydrocodone-Acetaminophen Discontinued 1 TABLET PO EVERY 6 HOURS NEEDED 10 December 06, 2017 6:23am December 12, 2017 [...] Oral, Daily Start Date: 03/22/23 Status: Ordered cephalexin 500 mg oral capsule (1 source) Cephalosporin Antibacterial Start: 11-03-2024 take 1 capsule by mouth every six hours Cephalexin 500 mg capsule Active 500 mg PO EVERY 6 HOURS November 03, 2024 12:00am ciprofloxacin 500 mg oral tablet (4 sources) Quinolone Antimicrobial Start: 03-24-2023 End: 03-31-2023 Cipro 500 mg oral tablet Dose : 500 mg = 1 tab(s), Oral, q12h, X 7 day(s), # 14 tab(s), 0 Refill(s), 03/31/23 11:34:00 AM EST, Pharmacy: [email or web address] #[id number], 170.2, cm, 03/22/23 16:11:00 EST, Height, 109.9, kg, 03/22/23 16:24:00 EST, Dosing Weight Start Date: 03/24/23 Stop Date: 03/31/23 Status: Ordered Start: 07-18-2019 End: 05-26-2020 take 1 tablet by mouth twice daily Ciprofloxacin Hcl 500 mg tablet Discontinued 500 mg PO TWICE A DAY July 18, 2019 1:00am May 26, 2020 1:07pm hold Macrobid while [...] Oral, qHS Start Date: 03/22/23 Status: Ordered ibuprofen 600 mg oral tablet (15 sources) Nonsteroidal Anti-inflammatory Drug Start: 08-27-2018 take 1 tablet by mouth every six hours as needed for pain Ibuprofen 600 mg tablet Active 600 mg PO EVERY 6 HOURS NEEDED as needed for pain November 03, 2024 12:00am Comment on above: Take by mouth. 3 ml insulin glargine 100 unt/ml pen injector (6 sources) Insulin Analog Start: 03-25-2023 End: 04-24-2023 inject 1 dose by subcutaneous injection once daily at bedtime Lantus Solostar Pen 100 units/mL 3 mL Pen Dose : 25 unit(s) =, Subcutaneous, qHS, # 15 mL, 0 Refill(s), Pharmacy: [email or web address] #[id number], 170.2, cm, 03/22/23 16:11:00 EST, Height, kg, [...] # 15 mL, 0 Refill(s), PEN, Pharmacy: [email or web address][id number], 170.2, cm, 03/22/23 16:11:00 EST, Height, kg, [...] Inject 5 Units subcu taneously before meals. miSOPROStol 0.2 mg oral tablet (5 sources) Prostaglandin E1 Analog Start: 04-24-2022 miSOPROStol 200 mcg oral tablet 0 Refill(s) Start [...] should be in vagina for 6-8 hours. sulfamethoxazole 800 mg / trimethoprim 160 mg oral tablet (3 sources) Dihydrofolate Reductase Inhibitor Antibacterial, Sulfonamide Antimicrobial Start: 11-03-2024 Sulfamethoxazole-T rimethoprim 800-160 mg tablet Active 1 {tbl} PO TWICE A DAY November 03, 2024 12:00am Start: 05-31-2022 End: 06-07-2022 Sulfamethoxazole-Trimethopri m (Bactrim Ds) 800-160 mg tablet Discontinued 1 {tbl} PO Q12H 14 May 31, 2022 1:00am June 06, 2022 1:00am June 07, 2022 1:03am Completed/Discontinued Medications Medication Drug Class(es) Dates Sig (Normalized) Sig (Original) 200 actuat albuterol 0.09 mg/actuat dry powder inhaler (9 sources) beta2-Adrenergic Agonist Start: 05-04-2024 End: 11-03-2024 Albuterol Sulfate 90 mcg/actuation aerosol powdr breath activated Discontinued 2 NMA INHALATION EVERY 6 HOURS as needed for shortness of breath or wheezing May 04, 2024 1:00am November 03, 2024 2:11pm Start: 06-02-2021 End: 05-12-2022 take 2 puff(s) by inhalation every four hours as needed for wheezing albuterol HFA (PROVENTIL HFA, VENTOLIN HFA) 90 mcg/actuation inhaler Indications: COVID-19 , SOB (shortness of breath) Inhale 2 Puffs as instructed every 4 hours as needed for wheezing/shortness of breath. 1 Each 1 06/02/2021 05/12/2022 Discontinued Start: 12-06-2017 End: 12-12-2017 Albuterol Sulfate 1 INHALER inhaler Discontinued 1 NMA INHALATION EVERY 6 HOURS NEEDED as needed for Sob &/Or Wheezing December 06, 2017 12:00am December 12, 2017 10:45am Start: 12-06-2017 End: 12-12-2017 take 1 puff(s) by inhalation every six hours as needed Albuterol Sulfate Discontinued 1 PUFF INHALATION EVERY 6 HOURS NEEDED December 06, 2017 4:40am December 12, 2017 10:45am Comment on above: Inhale 2 Puffs as in structed every 4 hours as needed for wheezing/shortness of breath. amoxicillin 500 mg oral capsule (11 sources) Penicillin-class Antibacterial Start: 023 End: 023 take 1 capsule by mouth three times daily Amoxicillin 500 mg capsule Discontinued 500 mg PO THREE TIMES A DAY 30 July 19, 2022 1:00am July 28, 2022 12:00am July 29, 2022 12:04am Start: 05-05-2022 End: 05-10-2022 take 1 tablet by mouth twice daily amoxicillin (AMOXIL) 875 mg tablet take 1 tablet by mouth twice a day for 5 days --TAKE WITH A PROBIOTIC 0 05/06/2022 Active Start: 03-08-2018 End: 03-18-2018 take 2 capsules by mouth twice daily Amoxicillin 500 mg capsule Discontinued 1000 mg PO TWICE A DAY 40 March 08, 2018 12:00am March 17, 2018 12:00am March 18, 2018 12:11am Start: 03-08-2018 End: 03-18-2018 take 1000 mg by mouth twice daily Amoxicillin Discontinued 1000 MG PO TWICE A DAY 40 March 08, 2018 12:15pm March 18, 2018 12:11am Start: 07-08-2017 End: 07-14-2017 take 2 capsules by mouth twice daily Amoxicillin 500 mg capsule Discontinued 1000 mg PO TWICE A DAY 40 July 08, 2017 1:00am July 17, 2017 1:00am July 14, 2017 4:12pm Start: 07-08-2017 End: 07-14-2017 take 1000 mg by mouth twice daily Amoxicillin Discontinued 1000 MG PO TWICE A DAY 40 July 08, 2017 2:36pm July 14, 2017 4:12pm Comment on above: take 1 tablet by margaret th twice a day for 5 days --TAKE WITH A PROBIOTIC amoxicillin 875 mg / clavulanate 125 mg oral tablet (3 sources) Penicillin-class Antibacterial Start: End: Amoxicillin-Pot Clavulanate (Augmentin) 875-125 mg tablet Discontinued 1 {tbl} PO Q12H 20 May 26, 2020 1:00am June 04, 2020 1:00am June 05, 2020 1:03am azithromycin 250 mg oral tablet (3 sources) Macrolide Antimicrobial Start: End: take 2-5 tablets by mouth once daily Azithromycin 250 mg tablet Discontinued 0 PO .COMPLEX October 17, 2018 12:00am March 15, 2019 12:02pm take 500 mg today (day 1), then 250 mg for 4 days (days 2-5) PO benzonatate 200 mg oral capsule (3 sources) Non-narcotic Antitussive Start: End: take 1 capsule by mouth three times daily as needed for cough Benzonatate 200 mg capsule Discontinued 200 mg PO THREE TIMES A DAY as needed for cough March 15, 2019 12:00am July 16, 2019 11:16am Blood-Glucose Meter (ONETOUCH VERIO METER) (2 sources) Start: Blood-Glucose Meter (ONETOUCH VERIO METER) Dispense one meter kit. E11.9 1 Each 0 09/08/2022 Active Comment on above: Dispense one meter k it. E11.9 Blood-Glucose Sensor (FREESTYLE WILLIAN 3 SENSOR) daniel (2 sources) Start: Blood-Glucose Sensor (FREESTYLE WILLIAN 3 SENSOR) daniel [...] oral solution (3 sources) alpha-Adrenergic Agonist, Uncompetitive G-loyyre-N-aspartate Receptor Antagonist, Sigma-1 Agonist Start: End: take 10 mL by mouth three times daily as needed Brompheniramine-Pse udoeph-DM (BROMFED DM) 2-30-10 mg/5 mL syrup Indications: COVID-19 Take 10 mL by mouth three times daily as needed. 240 mL 0 06/02/2021 11/10/2021 Discontinued (Course of therapy completed) Comment on above: Take 10 mL by mouth three times daily as needed. cholecalciferol 1.25 mg oral capsule (1 source) Vitamin D Start: cholecalciferol, Vitamin D3, (VITAMIN D3) 1,250 mcg (50,000 unit) cap capsule Take 1 capsule once weekly with food (for 12 weeks) 12 capsule 0 09/11/2022 Active Comment on above: Take 1 capsule once weekly with food (for 12 weeks) doxycycline monohydrate 100 mg oral capsule (3 sources) Tetracycline-class Drug Start: End: take 1 capsule by mouth twice daily Doxycycline Monohydrate 100 mg capsule Discontinued 100 mg PO TWICE A DAY March 11, 2021 12:00am May 28, 2022 10:48am 0.5 ml dulaglutide 1.5 mg/ml auto-injector (4 sources) GLP-1 Receptor Agonist Start: Trulicity Pen 0.75 mg/0.5 mL subcutaneous solution [...] Pen After fluconazole 150 mg oral tablet (3 sources) Azole Antifungal Start: End: Fluconazole 150 mg tablet Discontinued 150 mg PO Every 3 Days 2 July 16, 2019 1:00am May 26, 2020 1:07pm isopropyl alcohol 0.7 [...] Discontinued Start: 03-24-2021 take 1 capsule by [facility] once daily L. acidophilus,casei,rhamnosus 50 billio n cell cpDR Indications: BV (bacterial vaginosis) Take 1 capsule by mouth once daily. 30 capsule 03/24/2021 Active Comment on above: Take 1 capsule by mo ut once daily. L. acidophilus-L. rhamnosus 15 billion cell cap (2 sources) Start: 05-13-20 take 1 capsule by mouth once daily L. acidophilus-L. rhamnosus 15 billion cell cap Indications: BV (bacterial vaginosis) , Vaginal yeast infection Take 1 capsule by mouth once daily. FLORAJEN WOMEN. If on antibiotic, take at least 1-2 hours before or after antibiotic. KEEP REFRIGERATED 30 capsule 11 05/13/2022 Active Comment on above: Take 1 capsule by mo uth once daily. FLORAJEN WOMEN. If on antibiotic, take at least 1-2 hours before or after antibiotic. KEEP REFRIGERATED levoFLOXacin 500 mg oral tablet (3 sources) Quinolone Antimicrobial Start: 07-17-19 End: 05-28-19 take 1 tablet by mouth once daily Levofloxacin 500 mg tablet Discontinued 500 mg PO DAILY July 16, 2021 1:00am May 28, 2022 10:48am metroNIDAZOLE 500 mg oral tablet (4 sources) Nitroimidazole Antimicrobial Start: 05-28-19 End: 05-04-20 take 1 tablet by mouth twice daily Metronidazole 500 mg tablet Discontinued 500 mg PO TWICE A DAY May 28, 2022 1:00am May 04, 2024 1:04am Start: 04-24-2022 metroNIDAZOLE 500 mg oral tablet 0 Refill(s), 104.5 Start Date: 04/24/22 Status: Ordered miconazole nitrate 20 mg/ml vaginal cream (2 sources) Azole Antifungal Start: 05-13-2022 miconazole (MONISTAT 7) 2 % vaginal cream [...] (3 sources) RNA Synthetase Inhibitor Antibacterial Start: 05-12-2022 mupirocin (BACTROBAN) 2 % ointment Indications: Folliculitis Apply to affected area three times daily. 30 g 1 05/12/2022 Active Comment on above: Apply to affected ar ea three times daily. nitrofurantoin, macrocrystals 25 mg / nitrofurantoin, monohydrate 75 mg oral capsule (8 sources) Nitrofuran Antibacterial Start: 05-28-2022 End: 06-04-2022 take 1 capsule by mouth every twelve hours at mealtime Nitrofurantoin Monohyd/M-Cryst 100 mg capsule Discontinued 1 NMA PO Q12H 14 May 28, 2022 1:00am June 03, 2022 1:00am June 04, 2022 1:04am administer with a meal/food; swallow whole; do not open, crush, dissolve , or chew Start: 01-13-2021 End: 01-20-2021 take 1 capsule by mouth every twelve hours at mealtime Nitrofurantoin Monohyd/M-Cryst 100 mg capsule Discontinued 1 NMA PO Q12H 14 January 13, 2021 12:00am January 19, 2021 12:00am January 20, 2021 12:01am administer with a meal/food; swallow whole; do not open, crush, dissolve , or chew Start: 07-16-2019 End: 07-23-2019 take 1 capsule by mouth every twelve hours at mealtime Nitrofurantoin Monohyd/M-Cryst (Macrobid) 100 mg capsule Discontinued 100 mg PO Q12H 14 July 16, 2019 1:00am July 22, 2019 1:00am July 23, 2019 12:09am must administer with a meal/food ondansetron 4 mg oral tablet (5 sources) Serotonin-3 Receptor Antagonist Start: 09-08-2022 take 1 tablet by mouth every eight hours as needed ondansetron (ZOFRAN) 4 mg tablet Take 1 tablet by mouth every 8 hours as needed for nausea/vomiting. 20 tablet 1 09/08/2022 Active Start: 03-12-2021 End: 05-28-2022 take 1 tablet by mouth every six hours as needed for nausea and vomiting Ondansetron Hcl (Zofran) 4 mg tablet Discontinued 4 mg PO EVERY 6 HOURS as needed for nausea and vomiting March 12, 2021 12:00am May 28, 2022 10:48am Comment on above: Take 1 tablet by [facility] every 8 hours as needed for nausea/vomiting. oseltamivir 75 mg oral capsule (3 sources) Neuraminidase Inhibitor Start: 2017 End: 2017 take 1 capsule by mouth once daily Oseltamivir (Tamiflu) 75 mg capsule Discontinued 75 mg PO daily 10 June 28, 2017 1:00am July 07, 2017 1:00am July 08, 2017 1:10am phenazopyridine hydrochloride 100 mg oral tablet (8 sources) Start: 2020 End: 2023 take 1 tablet by mouth three times daily at mealtime for pain Phenazopyridine (Pyridium) 100 mg tablet Discontinued 100 mg PO THREE TIMES A DAY as needed for pain 7 May 28, 2022 1:00am May 04, 2024 1:04am administer with a full glass of water after each meal Start: 07-16-2019 End: 05-26-2020 take 1 tablet by mouth three times daily as needed for pain Phenazopyridine (Pyridium) 200 mg tablet Discontinued 200 mg PO THREE TIMES A DAY as needed for pain 6 July 16, 2019 1:00am May 26, 2020 1:07pm predniSONE 50 mg oral tablet (8 sources) Start: 05-04-2024 End: 11-03-2024 take 1 tablet by mouth once daily Prednisone 50 mg tablet Discontinued 50 mg PO DAILY 5 May 04, 2024 1:00am November 03, 2024 2:11pm Start: 04-24-2022 End: 04-25-2022 predniSONE 20 mg [...] 10, 1 tab day 11 and 12. QUEtiapine 25 mg oral tablet (3 sources) Atypical Antipsychotic Start: 08-21-19 End: 07-16-19 20 take 1 tablet by mouth at bedtime as needed Quetiapine 25 MG tablet Discontinued 25 mg PO AT BEDTIME as needed for Insomnia August 20, 2018 12:00am July 16, 2019 11:26am 1 mg dose [...] dose sulfacetamide sodium 100 mg/ml ophthalmic solution (3 sources) Sulfonamide Antibacterial Start: 04-26-20 17 End: 07-08-19 18 take 1 drop(s) into the eye(s) every three hours Sulfacetamide Sodium (Bleph-10) 10 % drops Discontinued 1 NMA OPHTHALMIC Q3H 5 April 26, 2017 1:00am July 08, 2017 2:38pm 1 drop to each eye every 3 hours Start: 04-26-2017 End: 07-08-2017 take 1 drop(s) into the eye(s) every three hours Sulfacetamide Sodium (Bleph-10) 10 % drops Discontinued 1 DRP OPHTHALMIC Q3H 5 April 26, 2017 3:08pm July 08, 2017 2:38pm 1 drop to each eye every 3 hours Problems Active Problems Problem Classification Problem Date Documented Date Episodic/Chronic Acute bronchitis (4 sources) Acute bronchitis; Translations: [Acute bronchitis, unspecified] Episodic Anxiety disorders (6 sources) Anxiety 07-06-2016 Chronic Chronic obstructive pulmonary disease and bronchiectasis (3 sources) Bronchitis; Translations: [Bronchitis, not specified as acute or chronic] 10-16-2018 Episodic Diabetes mellitus without complication (16 sources) Diabetes mellitus; Translations: [Type 2 diabetes mellitus without complications] Onset: 06-18-2014 08-27-2018 Chronic Comment on above: diet controlled Diabetes mellitus without complication (5 sources) Hyperglycemia; Translations: [Hyperglycemia, unspecified] Onset: 08-25-2022 05-28-2022 Episodic Fluid and electrolyte disorders (1 source) Dehydration; Translations: [Dehydration] Onset: 03-01-2023 Episodic Genitourinary symptoms and ill-defined conditions (5 sources) Dysuria; Translations: [Dysuria] 07-14-2017 Episodic Headache; including migraine (6 sources) Migraine; Translations: [Migraine, unspecified, not intractable, without status migrainosus] Onset: 07-19-2007 Resolved: 10-17-2014 12-12-2017 Chronic Immunizations and screening for infectious disease (12 sources) Patient encounter status; Translations: [Encounter for screening for COVID-19] Episodic Inflammation; infection of eye (except that caused by tuberculosis or sexually transmitteddisease) (3 sources) Acute infectious conjunctivitis; Translations: [Unspecified acute [...] Translations: [Shortness of breath] 06-02-2021 Episodic Other nervous system disorders (3 sources) Loss of taste; Translations: [Parageusia] 01-21-2021 Episodic Other nervous system disorders (3 sources) Loss of sense of smell; Translations: [...] obesity due to excess calories] Chronic Other nutritional; endocrine; and metabolic disorders (1 source) H/O: diabetes mellitus; Translations: [Personal history of other endocrine, nutritional and metabolic disease] 11-03-2024 Episodic Other screening for suspected conditions (not mental disorders or infectious disease) (1 source) Encounter for screening for lipoid disorders; Translations: [Encounter for screening for lipoid disorders] Onset: 06-02-2022 Episodic Other skin disorders (3 sources) Sebaceous cyst of skin; Translations: [Sebaceous cyst] 03-11-2021 Episodic Other skin disorders (1 source) Folliculitis; Translations: [Follicular disorder, unspecified] Episodic Other upper respiratory infections (10 sources) Acute upper respiratory infection; Translations: [Acute [...] the musculoskeletal system and connective tissue] Episodic Skin and subcutaneous tissue infections (2 sources) Cellulitis of face; Translations: [Cellulitis of face] Onset: 11-04-2024 11-03-2024 Episodic Spondylosis; intervertebral disc disorders; other back problems (3 sources) Backache; Translations: [Dorsalgia, unspecified] 07-14-2017 Episodic Sprains and strains (3 sources) Strain of muscle and/or tendon of lower leg; Translations: [Strain of unspecified muscle and tendon at ankle and foot level, right foot, initial encounter] 12-30-2020 Episodic Substance-related disorders (17 sources) Tobacco user; Translations: [Nicotine dependence, unspecified, uncomplicated] Onset: 07-21-2005 05-11-2021 Chronic Superficial injury; contusion (6 sources) Contusion of rib; Translations: [Contusion of left front wall of thorax, initial encounter] 10-10-2020 Episodic Unclassified (1 source) NO SHOW Urinary tract infections (5 sources) Urinary tract infectious disease; Translations: [Urinary [...] sinus] Onset: 2014 Resolved: 03-24-2021 03-24-2021 Episodic Mood disorders (2 sources) Bipolar disorder; Translations: [...] Onset: 10-22-2014 Resolved: 03-24-2021 03-24-2021 Episodic Other lower respiratory disease (1 source) Shortness of breath; Translations: [Shortness of breath] Onset: 05-26-2024 Episodic Other nutritional; endocrine; and metabolic disorders (1 source) Obesity; Translations: [Obesity, unspecified] Resolved: 02-08-2014 02-08-2014 Chronic Unclassified (1 source) SUMMARY Onset: 06-18-2014 Resolved: 10-17-2014 10-17-2014 Results Test Name Value Interpretation Reference Range Facil ity Emergency Department Summary on 11-03-2024 Emergency Department Summary [facility] Medical Records Department [address] [place] [address] Emergency Department Summary 11/03/24 MR#: [id number] Acct: [id number] Name: MONIQUE ACEVEDO Rep #: [id number] : 1985 [id number] From: Norman Almaguer PCP: TAMMIE LopezC Status:DEP ER Location: ED HPI History of Present Illness Chief Complaint: Abscess Informant: patient and parent Narrative Narrative: Here with mother increasing swelling left face near the ear, she tried to express it is only bloody drainage. No fever or chills. She is a diabetic. Feels more pressure in the area. Denies history of kidney injury. Prior similar symptoms: No PFSH [facility] Medical History Contact with and (suspected) exposure to other viral communicable diseases Acute pharyngitis, unspecified Acute bronchitis, unspecified Sebaceous cyst of left axilla Encounter for screening for COVID-19 Home Medications ???Medication ???Instructions ???Recorded ???Last Taken ???Type ibuprofen 600 mg tablet 600 mg PO Q6H PRN PRN Pain Score 0 10/10/20 Unknown Rx 1-10/10 #20 tabs cephalexin 500 mg capsule 500 mg PO Q6 #20 CAPSULES 11/03/24 Unknown Rx ibuprofen 600 mg tablet 600 mg PO Q6H PRN PRN pain #20 Unknown Rx TABLETS sulfamethoxazole 800 1 tab PO BID #10 TABLETS 11/03/24 Unknown Rx mg-trimethoprim 160 mg tablet Allergy/AdvReac Type Severity Reaction Status Date / Time No Known Allergies Allergy Verified 11/03/24 13:08 Surgical History History of Social History Smoking Status: Current every day smoker tobacco type: cigarettes alcohol intake: never ROS ROS ED Constitutional Constitutional ED: Denies fever(s) Cardiovascular Cardiovascular: Denies chest pain Respiratory/Chest Respiratory/Chest: Denies cough Gastrointestinal Gastrointestinal: Denies diarrhea or vomiting Musculoskeletal Musculoskeletal: Denies none Integumentary Reports abscess; Denies rash Neurologic Neurologic: Denies weakness EXAM Physical Exam Const Vital Signs: 11/03/24 13:05 Temperature 97.6 F L Temperature Source Oral Pulse Rate 101 H Respiratory Rate 16 Blood Pressure 147/88 H Blood Pressure Mean 107 Pulse Ox 100 Oxygen Delivery Method Room Air Positive well nourished and well developed General Appearance ED: well developed and NAD HEENT Reports moist mucous membranes HEENT Narrative: Left face superior to the tragus some tenderness very slight fluctuance mild erythema. Minimal erythema behind the ear. No auricular involvement at this time. No drainage. normocephalic Eyes General Eye ED: Yes normal appearance of both eyes Neck full ROM Chest Wall Chest: Negative for tenderness Resp normal respiratory effort and normal air movement Effort and Inspection: symmetric chest movement; Negative for respiratory distress Cardio regular rate, regular rhythm and no murmurs Peripheral Pulses: pulses 2+ throughout GI normal to inspection, nondistended, normoactive bowel sounds and non-tender Palpation: Negative for guarding or rebound tenderness present Extremity normal to inspection General Extremety ED: Negative for edema or tenderness General Extremity: Negative for edema Neuro oriented x3 and no sensory deficits noted Sensorium / Orientation: awake and alert Skin no rashes or lesions noted and no wounds MDM MDM MDM Narrative Medical decision making narrative: Interventions / MDM: Differential diagnosis: Facial cellulitis, history of diabetes Diagnosis considered but do not suspect: No abscess on needle decompression. My EKG interpretation: N/A Imaging independently reviewed and interpreted by myself: N/A External documents reviewed: N/A Test considered but not ordered:N/A ED course: Patient reports increasing pain swelling with bloody drainage at home. There is very minimal fluctuance however with patient reporting increasing swelling discussed needle decompression for which she agrees. Preparation being made. Oral Motrin Keflex Bactrim started. Procedure note: Verbal consent. Normal sterile conditions. Alcohol prep of the skin, 1 cc of 1% lidocaine used for local analgesia. Initial 18-gauge needle right through the center of fluctuance mild bloody drainage mild fluid drainage no exudates. Additional puncture inferior to this at the entrance of the initial analgesic placement. Again clear fluid no exudates. Patient tolerated procedure well. Patient be continued on antibiotics and NSAIDs. Return precaution discussed. Re-evaluation: stable Disposition discussed with patient/family/sign ificant other: Patient and family Case (more content not included)... Normal [facility] Chest PA and Lateralon 05-03 Chest PA and Lateral [facility] Imaging Services [address] [place] [address] Chest PA and Lateral MR#: [id number] Acct: [id number] Name: MONIQUE ACEVEDO Rep #: [id number] : 1985 F [id number] From: Denis Pennington MD PCP: Gideon Alford, KEITH-Raman Status: REG ER Study: Chest PA and Lateral Date of Exam: 05/03/24 Exam# [id number] Ordering Dr: John Echevarria DO -[id number] 5 EXAM: XR CHEST, 2 VIEWS CLINICAL [...] Signed: Denis Pennington MD at 0:27 EST , CC: AIRPLANE DESIGNERKaylie Alford; Dr. John Echevarria DO Exercise Manager: Signed Normal [facility] Emergency Department Summary on 05-03-2024 Emergency Department Summary [facility] Medical Records Department [address] [place] [address] Emergency Department Summary 05/03/24 MR#: [id number] Acct: [id number] Name: MONIQUE ACEVEDO Rep #: [id number] : 1985 38 From: John Echevarria DO PCP: SONIA Lopez Status:REG ER Location: ED HPI History of Present Illness Chief Complaint: Shortness of Breath [facility] Medical History (Updated 05/04/24 @ 00:[address] John Echevarria DO) Contact with and (suspected) exposure to other viral communicable diseases Acute pharyngitis, unspecified Acute bronchitis, unspecified Sebaceous cyst of left axilla Encounter for screening for COVID-19 Home Medications ???Medication ???Instructions ???Recorded ???Last Taken ???Type ibuprofen 600 mg tablet 600 mg PO Q6H PRN PRN Pain Score 10/10/20 Unknown Rx #20 tabs albuterol sulfate 90 mcg/actuation 2 [...] chest pain. Notes she works as a [employer] and has been exposed to COVID and [...] History obtained from others: none Consults: none [facility] Narrative: Patient was initially hemodynamically stable, tachycardic [...] COVID flu (more content not included)... Normal [facility] .Auto Diffon 03-24-2023 Basophil, Absolute 0.0 10 3/mcL Normal 0.0-0.2 [facility] ([place]) Comment on above: Performed By: #### C HANS BUTLER, AMRIT ADABIEL, CMP, GFR #### [address] [address] Basophils/100 WBC (Bld) 0.2 % Normal 0.0-2.5 A [facility] ([place]) Comment on above: Performed By: #### C HANS BUTLER, JUAQUIN MARCUS, CMP, GFR #### [address] [address] Eosinophil, Absolute 0.1 10 3/mcL Normal 0.0-0.4 [facility] [place] Comment on above: Performed By: #### C HANS BUTLER, JUAQUIN MARCUS, CMP, GFR #### [address] [address] Eosinophils/100 WBC (Bld) 1.5 % Normal 0.0-7.0 [facility] ([place] Comment on above: Performed By: #### C HANS BUTLER, ANEU, ADIFF, CMP, GFR #### [address] [address] Lymphocyte, Absolute 2.1 10 3/mcL Normal 0.8-3.9 [facility] [place] Comment on above: Performed By: #### C HANS BUTLER, ANEU, ADIFF, CMP, GFR #### [address] [address] Lymphocytes/100 WBC (Bld) 32.4 % Normal 10.0-50.0 [facility] ([place] Comment on above: Performed By: #### C HANS BUTLER, ANEU, ADIFF, CMP, GFR #### [address] [address] Monocyte, Absolute 0.6 10 3/mcL Normal 0.2-1.0 [facility] ([place]) Comment on above: Performed By: #### HANS SCHWARTZ, ANEU, ADIFF, CMP, GFR #### [address] [address] Monocytes/100 WBC (Bld) 8.7 % Normal 1.7-13.0 [facility] ([place]) Comment on above: Performed By: #### HANS SCHWARTZ, ANEU, ADIFF, CMP, GFR #### [address] [address] Neutrophils/100 WBC (Bld) 57.2 % Normal 37.0-80.0 [facility] ([place] Comment on above: Performed By: #### HANS SCHWARTZ, ANEU, ADIFF, CMP, GFR #### [address] [address] .GFRon 03-24-2023 GFR Non- 78 ml/min/1.73sqm Normal [facility] ([place] Comment on above: Result Comment: GFR Population [...] HANS BUTLER, ANEU, ADIFF, CMP, GFR #### [address] [address] GFR 94 ml/min/1.73sqm Normal [facility] ([place] Comment on above: Result Comment: GFR Population [...] HANS BUTLER, ANEU, ADIFF, CMP, GFR #### [address] [address] .NEUABSon 03-24-2023 Neutrophil, Absolute 3.8 10 3/mcL Normal 2.9-6.2 [facility] [place] Comment on above: Performed By: #### C HANS BUTLER, ANEU, ADIFF, CMP, GFR #### [address] [address] A1Con 03-24-2023 HbA1c (Bld) [Mass fraction] 10.4 % High 4.3-6.4 [facility] ([place] Comment on above: Performed By: #### C HANS BUTLER, ANEU, ADIFF, CMP, GFR #### [address] [address] BMPon 03-24-2023 BUN/Creatinine Ratio 7 ratio Normal 7-27 [facility] ([place]) Comment on above: Performed By: #### C HANS BUTLER, ANEU, ADIFF, CMP, GFR #### [address] [address] Calcium [Mass/Vol] 8.2 mg/dL Low 8.4-10.2 [facility] ([place]) Comment on above: Performed By: #### HANS SCHWARTZ, ANEU, ADIFF, CMP, GFR #### [place] [id number] Chloride [Moles/Vol] 101 mmol/L Normal 98-107 [facility] ([place]) Comment on above: Performed By: #### HANS SCHWARTZ, ANEU, ADIFF, CMP, GFR #### [place] [id number] CO2 [Moles/Vol] 29 mmol/L Normal 22-29 [facility] ([place] Comment on above: Performed By: #### C HANS BUTLER, ANEU, ADIFF, CMP, GFR #### [address] [address] Creatinine [Mass/Vol] 0.83 mg/dL Normal 0.55-1.02 [facility] ([place] Comment on above: Performed By: #### HANS SCHWARTZ, ANEU, ADIFF, CMP, GFR #### [address] [address] Electrolyte Balance 9.0 mEq/L Normal 4.0-15.0 [facility] [place] Comment on above: Performed By: #### HANS SCHWARTZ, ANEU, ADIFF, CMP, GFR #### [place] [id number] Glucose [Mass/Vol] 258 mg/dL High 70-105 [facility] ([place]) Comment on above: Performed By: #### HANS SCHWARTZ, ANEU, ADIFF, CMP, GFR #### [address] [address] Potassium [Moles/Vol] 4.0 mmol/L Normal 3.5-5.1 [facility] ([place] Comment on above: Performed By: #### C HANS BUTLER, AMRIT, ADIFF, CMP, GFR #### [address] [address] Sodium [Moles/Vol] 139 mmol/L Normal 136-145 [facility] ([place]) Comment on above: Performed By: #### C HANS BUTLER, AMRIT, ADIFF, CMP, GFR #### [address] [address] Urea nitrogen [Mass/Vol] 6 mg/dL Low 7-18 [facility] ([place]) Comment on above: Performed By: #### HANS SCHWARTZ, AMRIT, ADIFF, CMP, GFR #### [address] [address] CBCon 03-24-2023 Erythrocyte distribution width (RBC) [Ratio] 13.7 % Normal 11.5-14.5 [facility] ([place] Comment on above: Performed By: #### HANS SCHWARTZ, AMRIT, ADIFF, CMP, GFR #### [address] [address] Hematocrit (Bld) [Volume fraction] 37.9 % Normal 37.0-47.0 [facility] ([place] Comment on above: Performed By: #### HANS SCHWARTZ, AMRIT, ADIFF, CMP, GFR #### [address] [address] Hgb 12.6 G/dL Normal 12.0-16.0 [facility] ([place] Comment on above: Performed By: #### HANS SCHWARTZ, AMRIT, ADIFF, CMP, GFR #### [address] [address] MCH (RBC) [Entitic mass] 29.7 pg Normal 27.0-31.2 [facility] ([place] Comment on above: Performed By: #### C HANS BUTLER, ANEU, ADIFF, CMP, GFR #### [address] [address] MCHC 33.3 G/dL Normal 33.0-37.0 [facility] ([place] Comment on above: Performed By: #### HANS SCHWARTZ, AMRIT, ADIFF, CMP, GFR #### [address] [address] MCV (RBC) [Entitic vol] 89.2 fL Normal 80.0-94.0 A [facility] ([place]) Comment on above: Performed By: #### HANS SCHWARTZ, AMRIT, ADIFF, CMP, GFR #### [address] [address] Platelet 202 10 3/mcL Normal 130-400 [facility] ([place]) Comment on above: Performed By: #### HANS SCHWARTZ, AMRIT, ADIFF, CMP, GFR #### [place] [address] Platelet mean volume (Bld) [Entitic vol] 8.9 fL Normal 7.4-10.4 [facility] ([place] Comment on above: Performed By: #### HANS SCHWARTZ, AMRIT, ADIFF, CMP, GFR #### [address] [address] RBC 4.25 10 6/mcL Normal 4.20-5.40 [facility] ([place] Comment on above: Performed By: #### HANS SCHWARTZ, AMRIT, ADIFF, CMP, GFR #### [address] [address] WBC 6.6 10 3/mcL Normal 4.6-10.8 [facility] ([place] Comment on above: Performed By: #### HANS SCHWARTZ, AMRIT, ADIFF, CMP, GFR #### [address] [address] LABORATORYOrdered By: Josey Medina on 03-24-2023 Blood Glucose Testing Reason Routine (03/24/23 12:16 PM) [facility] Work Phone: Glucose [Mass/Vol] 250 mg/dL [facility] Work Phone: Blood Glucose Testing Reason Routine (03/24/23 10:11 AM) [facility] Work Phone: Glucose [Mass/Vol] 270 mg/dL Invalid Interpretation Code 70 - 110 mg/dL [facility] Work Phone: Blood Glucose Testing Reason Routine (03/24/23 8:38 AM) [facility] Work Phone: Glucose [Mass/Vol] 298 mg/dL [facility] Work Phone: LABORATORYOrdered By: Tia Ferguson on 03-24-2023 Glucose [Mass/Vol] 250 mg/dL Invalid Interpretation Code 70 - 110 mg/dL [facility] Work Phone: Glucose [Mass/Vol] 298 mg/dL Invalid Interpretation Code 70 - 110 mg/dL [facility] Work Phone: LABORATORYOrdered By: SYSTEM SYSTEM [...] 03-24-2023 Magnesium [Mass/Vol] 1.7 mg/dL Low 1.8-2.4 [facility] ([place]) Comment on above: Performed By: #### C BC, HANS, ANEU, ADIFF, CMP, GFR #### Abdirashid [address] [place], [place] [address] .Auto Diffon 03-23-2023 Basophil, Absolute 0.0 10 3/mcL Normal 0.0-0.2 [facility] ([place]) Comment on above: Performed By: #### A DIFF, MG, GFR, CBC, BMP, ANEU ####Abdirash[address] [place], [place] [address] Basophils/100 WBC (Bld) 0.3 % Normal 0.0-2.5 A [facility] ([place]) Comment on above: Performed By: #### A DIFF, MG, GFR, CBC, BMP, ANEU ####[address] [place], [place] [address] Eosinophil, Absolute 0.1 10 3/mcL Normal 0.0-0.4 [facility] ([place] Comment on above: Performed By: #### A DIFF, MG, GFR, CBC, BMP, ANEU ####[address] [place], [place] [address] Eosinophils/100 WBC (Bld) 1.7 % Normal 0.0-7.0 [facility] ([place] Comment on above: Performed By: #### A DIFF, MG, GFR, CBC, BMP, ANEU ####[address] [place], [place] [address] Lymphocyte, Absolute 2.6 10 3/mcL Normal 0.8-3.9 [facility] [place] Comment on above: Performed By: #### A DIFF, MG, GFR, CBC, BMP, ANEU ####[address] [place], [place] [address] Lymphocytes/100 WBC (Bld) 30.5 % Normal 10.0-50.0 [facility] ([place] Comment on above: Performed By: #### A DIFF, MG, GFR, CBC, BMP, ANEU ####[address] [place], [place] [address] Monocyte, Absolute 0.6 10 3/mcL Normal 0.2-1.0 [facility] ([place]) Comment on above: Performed By: #### A DIFF, MG, GFR, CBC, BMP, ANEU ####[address] [place], [place] [address] Monocytes/100 WBC (Bld) 7.2 % Normal 1.7-13.0 A [facility] ([place]) Comment on above: Performed By: #### A DIFF, MG, GFR, CBC, BMP, ANEU ####[address] [place], [place] [address] Neutrophils/100 WBC (Bld) 60.3 % Normal 37.0-80.0 [facility] ([place] Comment on above: Performed By: #### A DIFF, MG, GFR, CBC, BMP, ANEU ####[address] [place], [place] [address] .GFRon 03-23-2023 GFR 103 ml/min/1.73sqm Normal [facility] ([place] Comment on above: Result Comment: GFR Population [...] A DIFF, MG, GFR, CBC, BMP, ANEU ####[address] [place], [place] [address] GFR Non- 85 ml/min/1.73sqm Normal [facility] ([place] Comment on above: Result Comment: GFR Population [...] A DIFF, MG, GFR, CBC, BMP, ANEU ####Abdirash[address] [place], [place] [address] .NEUABSon 03-23-2023 Neutrophil, Absolute 5.2 10 3/mcL Normal 2.9-6.2 [facility] [place] Comment on above: Performed By: #### A DIFF, MG, GFR, CBC, BMP, ANEU ####[address] [place], [place] [address] BMPon 03-23-2023 BUN/Creatinine Ratio 6 ratio Low 7-27 [facility] ([place]) Comment on above: Performed By: #### A DIFF, MG, GFR, CBC, BMP, ANEU ####[address] [place], [place] [address] Calcium [Mass/Vol] 8.2 mg/dL Low 8.4-10.2 [facility] ([place]) Comment on above: Performed By: #### A DIFF, MG, GFR, CBC, BMP, ANEU ####Abdir[address] [place], [place] [address] Chloride [Moles/Vol] 102 mmol/L Normal 98-107 [facility] ([place]) Comment on above: Performed By: #### A DIFF, MG, GFR, CBC, BMP, ANEU ####[address] [place], [place] [address] CO2 [Moles/Vol] 26 mmol/L Normal 22-29 [facility] ([place] Comment on above: Performed By: #### A DIFF, MG, GFR, CBC, BMP, ANEU ####[address] [place], [place] [address] Creatinine [Mass/Vol] 0.77 mg/dL Normal 0.55-1.02 [facility] ([place] Comment on above: Performed By: #### A DIFF, MG, GFR, CBC, BMP, ANEU ####[address] [place], [place] [address] Electrolyte Balance 10.0 mEq/L Normal 4.0-15.0 [facility] [place] Comment on above: Performed By: #### A DIFF, MG, GFR, CBC, BMP, ANEU ####[address] [place], [place] [address] Glucose [Mass/Vol] 191 mg/dL High 70-105 [facility] ([place]) Comment on above: Performed By: #### A DIFF, MG, GFR, CBC, BMP, ANEU ####[address] [place], [place] [address] Potassium [Moles/Vol] 4.1 mmol/L Normal 3.5-5.1 [facility] ([place] Comment on above: Performed By: #### A DIFF, MG, GFR, CBC, BMP, ANEU ####[address] [place], [place] [address] Sodium [Moles/Vol] 138 mmol/L Normal 136-145 [facility] ([place]) Comment on above: Performed By: #### A DIFF, MG, GFR, CBC, BMP, ANEU ####[address] [place], [place] [address] Urea nitrogen [Mass/Vol] 5 mg/dL Low 7-18 [facility] ([place] Comment on above: Performed By: #### A DIFF, MG, GFR, CBC, BMP, ANEU ####Abdirashid [address] [place], [place] [address] CBCon 03-23-2023 Erythrocyte distribution width (RBC) [Ratio] 13.8 % Normal 11.5-14.5 [facility] ([place] Comment on above: Performed By: #### A DIFF, MG, GFR, CBC, BMP, ANEU ####[address] [place], [place] [address] Hematocrit (Bld) [Volume fraction] 39.4 % Normal 37.0-47.0 [facility] ([place] Comment on above: Performed By: #### A DIFF, MG, GFR, CBC, BMP, ANEU ####[address] [place], [place] [address] Hgb 13.3 G/dL Normal 12.0-16.0 [facility] ([place] Comment on above: Performed By: #### A DIFF, MG, GFR, CBC, BMP, ANEU ####[address] [place], [place] [address] MCH (RBC) [Entitic mass] 29.6 pg Normal 27.0-31.2 [facility] ([place] Comment on above: Performed By: #### A DIFF, MG, GFR, CBC, BMP, ANEU ####Abdirash[address] [address] MCHC 33.8 G/dL Normal 33.0-37.0 [facility] ([place] Comment on above: Performed By: #### A DIFF, MG, GFR, CBC, BMP, ANEU ####Abdirash[address] [place], [place] [address] MCV (RBC) [Entitic vol] 87.7 fL Normal 80.0-94.0 [facility] ([place]) Comment on above: Performed By: #### A DIFF, MG, GFR, CBC, BMP, ANEU ####Abdirash[address] [place], [place] [address] Platelet 235 10 3/mcL Normal 130-400 [facility] ([place] Comment on above: Performed By: #### A DIFF, MG, GFR, CBC, BMP, ANEU ####Abdirash[address] [place], [place] [address] Platelet mean volume (Bld) [Entitic vol] 8.9 fL Normal 7.4-10.4 [facility] ([place] Comment on above: Performed By: #### A DIFF, MG, GFR, CBC, BMP, ANEU ####[address] [place], [place] [address] RBC 4.49 10 6/mcL Normal 4.20-5.40 [facility] ([place]) Comment on above: Performed By: #### A DIFF, MG, GFR, CBC, BMP, ANEU ####[address] [place], [place] [address] WBC 8.6 10 3/mcL Normal 4.6-10.8 [facility] ([place] Comment on above: Performed By: #### A DIFF, MG, GFR, CBC, BMP, ANEU ####[address] [place], [place] [address] LABORATORYOrdered By: Brenna Maria on 03-23-2023 Appearance [...] 03-23-2023 Magnesium [Mass/Vol] 1.5 mg/dL Low 1.8-2.4 [facility] ([place]) Comment on above: Performed By: #### A DIFF, MG, GFR, CBC, BMP, ANEU ####[address] [address] UAon 03-23-2023 Color (U) Yellow Normal [facility] ([place] Comment on above: Performed By: #### C HANS BUTLER, ANEU, ADIFF, CMP, GFR #### [address] [address] Glucose (U) [Mass/Vol] Negative Normal Negative [facility] [place] Comment on above: Performed By: #### C HANS BUTLER, ANEU, ADIFF, CMP, GFR #### [place] [id number] [place], [place] [address] Ketones Ql (U) Negative Normal Negative [facility] ([place] Comment on above: Performed By: #### HANS SCHWARTZ, ANEU, ADIFF, CMP, GFR #### [address] [address] UA Appear Clear Normal Clear [facility] ([place] Comment on above: Performed By: #### C HANS BUTELR, ANEU, ADIFF, CMP, GFR #### [address] [address] UA Blood Negative Normal Negative [facility] ([place] Comment on above: Performed By: #### HANS SCHWARTZ, ANEU, ADIFF, CMP, GFR #### [address] [address] UA Leuk Est Negative Normal Negative [facility] ([place] Comment on above: Performed By: #### C HANS BUTLER, ARMIT, ADIFF, CMP, GFR #### [address] [address] UA Nitrite Negative Normal Negative [facility] ([place] Comment on above: Performed By: #### C HANS BUTLER, AMRIT, ADIFF, CMP, GFR #### [address] [address] UA pH 7.0 Normal 5.0 - 8.0 [facility] ([place] Comment on above: Performed By: #### HANS SCHWARTZ, AMRIT, ADIFF, CMP, GFR #### [address] [address] UA Protein Negative Normal Negative [facility] ([place] Comment on above: Performed By: #### C HANS BUTLER, ANEU, ADIFF, CMP, GFR #### [address] [address] UA Spec Grav 1.015 Normal 1.015-1.025 [facility] ([place] Comment on above: Performed By: #### HANS SCHWARTZ, ANEU, ADIFF, CMP, GFR #### [address] [address] UA Specimen Type Clean Catch Normal [facility] ([place] Comment on above: Performed By: #### C HANS BUTLER, ANEU, ADIFF, CMP, GFR #### [address] [address] UA Urobilinogen 0.2 E.U./dL Normal 0.2-1.0 [facility] ([place] Comment on above: Performed By: #### C HANS BUTLER, ANEU, ADIFF, CMP, GFR #### [address] [address] Urobilinogen (U) [Mass/Vol] Negative Normal Negative [facility] ([place] Comment on above: Performed By: #### C HANS BUTLER, ANEU, ADIFF, CMP, GFR #### [address] [address] .Auto Diffon 03-22-2023 Basophil, Absolute 0.0 10 3/mcL Normal 0.0-0.2 [facility] ([place]) Comment on above: Performed By: #### HANS SCHWARTZ, AMRIT, ADIFF, CMP, GFR #### [address] [address] Basophils/100 WBC (Bld) 0.4 % Normal 0.0-2.5 A [facility] ([place]) Comment on above: Performed By: #### C HANS BUTLER, ANEU, ADIFF, CMP, GFR #### [address] [address] Eosinophil, Absolute 0.2 10 3/mcL Normal 0.0-0.4 [facility] [place] Comment on above: Performed By: #### C HANS BUTLER, ANEU, ADIFF, CMP, GFR #### [address] [address] Eosinophils/100 WBC (Bld) 2.1 % Normal 0.0-7.0 [facility] ([place] Comment on above: Performed By: #### HANS SCHWARTZ, ANEU, ADIFF, CMP, GFR #### [address] [address] Lymphocyte, Absolute 2.1 10 3/mcL Normal 0.8-3.9 [facility] [place] Comment on above: Performed By: #### C HANS BUTLER, ANEU, ADIFF, CMP, GFR #### [address] [address] Lymphocytes/100 WBC (Bld) 19.3 % Normal 10.0-50.0 [facility] ([place] Comment on above: Performed By: #### C HANS BUTLER, ANEU, ADIFF, CMP, GFR #### [address] [address] Monocyte, Absolute 0.9 10 3/mcL Normal 0.2-1.0 [facility] ([place]) Comment on above: Performed By: #### C HANS BUTLER, ANEU, ADIFF, CMP, GFR #### [address] [address] Monocytes/100 WBC (Bld) 8.0 % Normal 1.7-13.0 [facility] ([place]) Comment on above: Performed By: #### C HANS BUTLER, ANEU, ADIFF, CMP, GFR #### [address] [address] Neutrophils/100 WBC (Bld) 70.2 % Normal 37.0-80.0 [facility] ([place] Comment on above: Performed By: #### HANS SCHWARTZ, ANEU, ADIFF, CMP, GFR #### [address] [address] .GFRon 03-22-2023 GFR 113 ml/min/1.73sqm Normal [facility] ([place] Comment on above: Result Comment: GFR Population [...] HANS BUTLER, ANEU, ADIFF, CMP, GFR #### [address] [address] GFR Non- 93 ml/min/1.73sqm Normal [facility] ([place] Comment on above: Result Comment: GFR Population [...] HANS BUTLER, ANEU, ADIFF, CMP, GFR #### [place] [id number] .MDWon 03-22-2023 Monocyte Distribution Width 19.43 Normal 0.00-20.00 [facility] ([place] Comment on above: Result Comment: For ED adult patients suspected of sepsis, MDW<=20.0 does not rule out sepsis or risk of sepsis Performed By: #### C HANS BUTLER, ANEU, ADIFF, CMP, GFR #### [address] [address] .NEUABSon 03-22-2023 Neutrophil, Absolute 7.7 10 3/mcL High 2.9-6.2 [facility] [place] Comment on above: Performed By: #### C HANS BUTLER, ANEU, ADIFF, CMP, GFR #### [address] [address] .Urinalysis Microscopic (AO) on 03-22-2023 UA Bacteria 1+ /hpf Abnormal [facility] ([place] Comment on above: Performed By: #### C HANS BUTLER, ANEU, ADIFF, CMP, GFR #### [address] [address] UA RBC 5-10 Abnormal None Seen [facility] ([place] Comment on above: Performed By: #### C HANS BUTLER, ANEU, ADIFF, CMP, GFR #### [address] [address] UA Squam Epithelial LOADED Abnormal None Seen [facility] [place] Comment on above: Performed By: #### C HANS BUTLER, ANEU, ADIFF, CMP, GFR #### [address] [address] UA WBC LOADED Abnormal None Seen [facility] ([place] Comment on above: Performed By: #### C HANS BUTLER, AMRIT, ADIFF, CMP, GFR #### [address] [address] BMPon 03-22-2023 BUN/Creatinine Ratio 11 ratio Normal 7-27 [facility] ([place]) Comment on above: Performed By: #### C HANS BUTLER, ANEU, ADIFF, CMP, GFR #### [address] [address] Calcium [Mass/Vol] 8.9 mg/dL Normal 8.4-10.2 [facility] ([place]) Comment on above: Performed By: #### C HANS BUTLER, AMRIT, ADIFF, CMP, GFR #### [address] [address] Chloride [Moles/Vol] 100 mmol/L Normal 98-107 [facility] ([place]) Comment on above: Performed By: #### C HANS BUTLER, ANEU, ADIFF, CMP, GFR #### [address] [address] CO2 [Moles/Vol] 24 mmol/L Normal 22-29 [facility] ([place] Comment on above: Performed By: #### C HANS BUTLER, ANEU, ADIFF, CMP, GFR #### [address] [address] Creatinine [Mass/Vol] 0.71 mg/dL Normal 0.55-1.02 [facility] ([place] Comment on above: Performed By: #### C HANS BUTLER, AMRIT, ADIFF, CMP, GFR #### [address] [address] Electrolyte Balance 13.0 mEq/L Normal 4.0-15.0 [facility] [place] Comment on above: Performed By: #### C HANS BUTLER, AMRIT, ADIFF, CMP, GFR #### [address] [address] Glucose [Mass/Vol] 313 mg/dL High 70-105 [facility] ([place]) Comment on above: Performed By: #### C HANS BUTLER, AMRIT, ADIFF, CMP, GFR #### [address] [address] Potassium [Moles/Vol] 3.9 mmol/L Normal 3.5-5.1 [facility] ([place] Comment on above: Performed By: #### C HANS BUTLER, AMRIT, ADIFF, CMP, GFR #### [address] [address] Sodium [Moles/Vol] 137 mmol/L Normal 136-145 [facility] ([place] Comment on above: Performed By: #### HANS SCHWARTZ, AMRIT, ADIFF, CMP, GFR #### [address] [address] Urea nitrogen [Mass/Vol] 8 mg/dL Normal 7-18 [facility] ([place] Comment on above: Performed By: #### HANS SCHWARTZ, AMRIT, ADIFF, CMP, GFR #### [address] [address] CBCon 03-22-2023 Erythrocyte distribution width (RBC) [Ratio] 14.0 % Normal 11.5-14.5 [facility] ([place] Comment on above: Performed By: #### C HANS BUTLER, ANEU, ADIFF, CMP, GFR #### [address] [address] Hematocrit (Bld) [Volume fraction] 40.6 % Normal 37.0-47.0 [facility] ([place] Comment on above: Performed By: #### C HANS BUTLER, AMRIT, ADIFF, CMP, GFR #### [place] [id number] Hgb 13.6 G/dL Normal 12.0-16.0 [facility] ([place] Comment on above: Performed By: #### HANS SCHWARTZ, AMRIT, ADIFF, CMP, GFR #### [address] [address] MCH (RBC) [Entitic mass] 29.2 pg Normal 27.0-31.2 [facility] ([place] Comment on above: Performed By: #### C HANS BUTLER, AMRIT, ADIFF, CMP, GFR #### [address] [address] MCHC 33.4 G/dL Normal 33.0-37.0 [facility] ([place] Comment on above: Performed By: #### HANS SCHWARTZ, AMRIT, ADIFF, CMP, GFR #### [address] [address] MCV (RBC) [Entitic vol] 87.6 fL Normal 80.0-94.0 [facility] ([place]) Comment on above: Performed By: #### HANS SCHWARTZ, ANEU, ADIFF, CMP, GFR #### [address] [address] Platelet 256 10 3/mcL Normal 130-400 [facility] ([place] Comment on above: Performed By: #### HANS SCHWARTZ, ANEU, ADIFF, CMP, GFR #### [address] [address] Platelet mean volume (Bld) [Entitic vol] 8.8 fL Normal 7.4-10.4 [facility] ([place] Comment on above: Performed By: #### C HANS BUTLER, ANEU, ADIFF, CMP, GFR #### [place] [id number] [place], [place] [address] RBC 4.64 10 6/mcL Normal 4.20-5.40 [facility] ([place] Comment on above: Performed By: #### C HANS BUTLER, ANEU, ADIFF, CMP, GFR #### [place] [id number] [place], [place] [address] WBC 11.0 10 3/mcL High 4.6-10.8 [facility] ([place] Comment on above: Performed By: #### C HANS BUTLER, ANEU, ADIFF, CMP, GFR #### [place] [id number] [place], [place] [address] CT ABD/PELVIS W/ IV CONTRAST ONLYon 03-22-2023 [...] Date: 03/22/2023 1:06:24 PM Ordering Provider: GREGG Valencia [facility] ([place] LABORATORYOrdered By: Moon Dutta on 03-22-2023 Appearance [...] Probable Contamination. Suggest recollection if clinically indicated. [facility] Work Phone: PREGUon 03-22-2023 HCG ( test) Ql (U) Negative Normal [facility] ([place] Comment on above: Performed By: #### C HANS BUTLER, ANEU, ADIFF, CMP, GFR #### [address] [address] test (u) int Not detected Invalid Interpretation Code [facility] ([place] Comment on above: Performed By: #### C HANS BUTLER, ANEU, ADIFF, CMP, GFR #### [place] [id number] [place], [place] [address] UAon 03-22-2023 Color (U) Yellow Normal [facility] ([place] Comment on above: Performed By: #### C HANS BUTLER, ANEU, ADIFF, CMP, GFR #### [address] [address] Glucose (U) [Mass/Vol] 500 mg/dL Abnormal Negative [facility] [place] Comment on above: Performed By: #### C HANS BUTLER, ANEU, ADIFF, CMP, GFR #### [address] [address] Ketones Ql (U) Negative Normal Negative [facility] ([place] Comment on above: Performed By: #### C HANS BUTLER, AMRIT, ADIFF, CMP, GFR #### [address] [address] UA Appear Cloudy Abnormal Clear [facility] ([place] Comment on above: Performed By: #### C HANS BUTLER, AMRIT, ADIFF, CMP, GFR #### [address] [address] UA Blood Moderate Abnormal Negative [facility] ([place] Comment on above: Performed By: #### HANS SCHWARTZ, AMRIT, ADIFF, CMP, GFR #### [address] [address] UA Leuk Est Trace Abnormal Negative [facility] ([place] Comment on above: Performed By: #### HANS SCHWARTZ, ANEU, ADIFF, CMP, GFR #### [address] [address] UA Nitrite Negative Normal Negative [facility] ([place] Comment on above: Performed By: #### HANS SCHWARTZ, ANEU, ADIFF, CMP, GFR #### [address] [address] UA pH 6.0 Normal 5.0 - 8.0 [facility] ([place] Comment on above: Performed By: #### C HANS BUTLER, ANEU, ADIFF, CMP, GFR #### [address] [address] UA Protein 100 mg/dL Abnormal Negative [facility] ([place] Comment on above: Performed By: #### C HANS BUTLER, AMRIT, ADIFF, CMP, GFR #### [address] [address] UA Spec Grav 1.020 Normal 1.015-1.025 [facility] ([place] Comment on above: Performed By: #### C HANS BUTLER, AMRIT, ADIFF, CMP, GFR #### [address] [address] UA Specimen Type Clean Catch Normal [facility] ([place] Comment on above: Performed By: #### HANS SCHWARTZ, AMRIT, ADIFF, CMP, GFR #### [address] [address] UA Urobilinogen 0.2 E.U./dL Normal 0.2-1.0 [facility] ([place] Comment on above: Performed By: #### HANS SCHWARTZ, AMRIT, ADIFF, CMP, GFR #### [address] [address] Urobilinogen (U) [Mass/Vol] Negative Normal Negative [facility] ([place] Comment on above: Performed By: #### HANS SCHWARTZ, AMRIT, ADIFF, CMP, GFR #### [address] [address] .GFRon 03-02-2023 GFR 109 ml/min/1.73sqm Normal [facility] ([place] Comment on above: Result Comment: GFR Population [...] Performed By: #### B MP, GFR #### [address] [address] GFR Non- 90 ml/min/1.73sqm Normal [facility] ([place] Comment on above: Result Comment: GFR Population [...] Performed By: #### B MP, GFR #### [address] [address] BMPon 03-02-2023 BUN/Creatinine Ratio 8 ratio Normal 7-27 [facility] ([place]) Comment on above: Performed By: #### B MP, GFR #### [address] [address] Calcium [Mass/Vol] 7.6 mg/dL Low 8.4-10.2 [facility] ([place]) Comment on above: Performed By: #### B MP, GFR #### [address] [address] Chloride [Moles/Vol] 101 mmol/L Normal 98-107 [facility] ([place] Comment on above: Performed By: #### B MP, GFR #### [address] [address] CO2 [Moles/Vol] 24 mmol/L Normal 22-29 [facility] ([place] Comment on above: Performed By: #### B MP, GFR #### [address] [address] Creatinine [Mass/Vol] 0.73 mg/dL Normal 0.55-1.02 [facility] ([place] Comment on above: Performed By: #### B MP, GFR #### [address] [address] Electrolyte Balance 11.0 mEq/L Normal 4.0-15.0 [facility] [place] Comment on above: Performed By: #### B MP, GFR #### [address] [address] Glucose [Mass/Vol] 310 mg/dL High 70-105 [facility] ([place] Comment on above: Performed By: #### B MP, GFR #### [address] [address] Potassium [Moles/Vol] 3.6 mmol/L Normal 3.5-5.1 [facility] ([place] Comment on above: Performed By: #### Vincent MP, GFR #### [address] [address] Sodium [Moles/Vol] 136 mmol/L Normal 136-145 [facility] ([place] Comment on above: Performed By: #### Vincent MP, GFR #### [address] [address] Urea nitrogen [Mass/Vol] 6 mg/dL Low 7-18 [facility] ([place] Comment on above: Performed By: #### Vincent MP, GFR #### [address] [address] .Auto Diffon 03-01-2023 Basophil, Absolute 0.0 10 3/mcL Normal 0.0-0.2 [facility] ([place] Comment on above: Performed By: #### C HANS BUTLER, JUAQUIN MARCUS, CMP, GFR #### [address] [address] Basophils/100 WBC (Bld) 0.4 % Normal 0.0-2.5 [facility] ([place]) Comment on above: Performed By: #### C HANS BUTLER, ANEU, ADIFF, CMP, GFR #### [address] [address] Eosinophil, Absolute 0.1 10 3/mcL Normal 0.0-0.4 [facility] [place] Comment on above: Performed By: #### C HANS BUTLER, ANEU, ADIFF, CMP, GFR #### [address] [address] Eosinophils/100 WBC (Bld) 1.3 % Normal 0.0-7.0 [facility] ([place] Comment on above: Performed By: #### C HANS BUTLER, ANEU, ADIFF, CMP, GFR #### [address] [address] Lymphocyte, Absolute 2.5 10 3/mcL Normal 0.8-3.9 [facility] [place] Comment on above: Performed By: #### C HANS BUTLER, ANEU, ADIFF, CMP, GFR #### [address] [address] Lymphocytes/100 WBC (Bld) 30.2 % Normal 10.0-50.0 [facility] ([place] Comment on above: Performed By: #### C HANS BUTLER, ANEU, ADIFF, CMP, GFR #### [address] [address] Monocyte, Absolute 0.6 10 3/mcL Normal 0.2-1.0 [facility] ([place] Comment on above: Performed By: #### C HANS BUTLER, ANEU, ADIFF, CMP, GFR #### [address] [address] Monocytes/100 WBC (Bld) 6.9 % Normal 1.7-13.0 [facility] ([place]) Comment on above: Performed By: #### HANS SCHWARTZ, ANEU, ADIFF, CMP, GFR #### [address] [address] Neutrophils/100 WBC (Bld) 61.2 % Normal 37.0-80.0 [facility] ([place] Comment on above: Performed By: #### C HANS BUTLER, ANEU, ADIFF, CMP, GFR #### [address] [address] .GFRon 03-01-2023 GFR Non- 67 ml/min/1.73sqm Normal [facility] ([place] Comment on above: Result Comment: GFR Population [...] HANS BUTLER, ANEU, ADIFF, CMP, GFR #### [address] [address] GFR 81 ml/min/1.73sqm Normal [facility] ([place] Comment on above: Result Comment: GFR Population [...] HANS BUTLER, ANEU, ADIFF, CMP, GFR #### [address] [address] .MDWon 03-01-2023 Monocyte Distribution Width 18.08 Normal 0.00-20.00 [facility] ([place] Comment on above: Result Comment: For ED adult patients suspected of sepsis, MDW<=20.0 does not rule out sepsis or risk of sepsis Performed By: #### C HANS BUTLER, ANEU, ADIFF, CMP, GFR #### [address] [address] .NEUABSon 03-01-2023 Neutrophil, Absolute 5.1 10 3/mcL Normal 2.9-6.2 [facility] [place] Comment on above: Performed By: #### C HANS BUTLER, AMRIT, ADIFF, CMP, GFR #### [place] [address] CBCon 03-01-2023 Erythrocyte distribution width (RBC) [Ratio] 13.7 % Normal 11.5-14.5 [facility] ([place] Comment on above: Performed By: #### C HANS BUTLER, AMRIT, ADIFF, CMP, GFR #### [address] [address] Hematocrit (Bld) [Volume fraction] 43.3 % Normal 37.0-47.0 [facility] ([place] Comment on above: Performed By: #### C HANS BUTLER, AMRIT, ADIFF, CMP, GFR #### [address] [address] Hgb 14.3 G/dL Normal 12.0-16.0 [facility] ([place] Comment on above: Performed By: #### C HANS BUTLER, AMRIT, ADIFF, CMP, GFR #### [address] [address] MCH (RBC) [Entitic mass] 29.6 pg Normal 27.0-31.2 [facility] ([place] Comment on above: Performed By: #### HANS SCHWARTZ, ANEU, ADIFF, CMP, GFR #### [address] [address] MCHC 33.1 G/dL Normal 33.0-37.0 [facility] ([place] Comment on above: Performed By: #### C HANS BUTLER, ANEU, ADIFF, CMP, GFR #### [address] [address] MCV (RBC) [Entitic vol] 89.3 fL Normal 80.0-94.0 [facility] ([place] Comment on above: Performed By: #### C HANS BUTLER, ANEU, ADIFF, CMP, GFR #### [address] [address] Platelet 212 10 3/mcL Normal 130-400 [facility] ([place] Comment on above: Performed By: #### C HANS BUTLER, ANEU, ADIFF, CMP, GFR #### [address] [address] Platelet mean volume (Bld) [Entitic vol] 9.1 fL Normal 7.4-10.4 [facility] ([place] Comment on above: Performed By: #### C HANS BUTLER, AMRIT, ADIFF, CMP, GFR #### [address] [address] RBC 4.84 10 6/mcL Normal 4.20-5.40 [facility] ([place] Comment on above: Performed By: #### C HANS BUTLER, ANEU, ADIFF, CMP, GFR #### [address] [address] WBC 8.4 10 3/mcL Normal 4.6-10.8 [facility] ([place] Comment on above: Performed By: #### HANS SCHWARTZ, ANEU, ADIFF, CMP, GFR #### [address] [address] CMPon 03-01-2023 Albumin Level 3.5 G/dL Normal 3.5-5.0 [facility] ([place] Comment on above: Performed By: #### HANS SCHWARTZ, ANEU, ADIFF, CMP, GFR #### [address] [address] Albumin/Globulin [Mass ratio] 1.0 {ratio} Low 1.1-2.5 [facility] ([place] Comment on above: Performed By: #### C HANS BUTLER, AMRIT, ADIFF, CMP, GFR #### [address] [address] ALP [Catalytic activity/Vol] 128 U/L Normal 40-135 [facility] ([place] Comment on above: Performed By: #### C HANS BUTLER, AMRIT, ADIFF, CMP, GFR #### [address] [address] ALT [Catalytic activity/Vol] 44 U/L Normal 14-59 [facility] ([place] Comment on above: Performed By: #### C HANS BUTLER, AMRIT, ADIFF, CMP, GFR #### [address] [address] AST [Catalytic activity/Vol] 42 U/L High 10-40 [facility] ([place] Comment on above: Performed By: #### HANS SCHWARTZ, AMRIT, ADIFF, CMP, GFR #### [address] [address] Bili Total 0.2 mg/dL Normal 0.2-1.0 [facility] ([place] Comment on above: Result Comment: Use of this assay is not recommended for patients undergoing treatment with eltrombopag due to the potential for falsely elevated results. Performed By: #### C HANS BUTLER, AMRIT, ADIFF, CMP, GFR #### [address] [address] BUN/Creatinine Ratio 7 ratio Normal 7-27 [facility] ([place]) Comment on above: Performed By: #### C HANS BUTLER, AMRIT, ADIFF, CMP, GFR #### [address] [address] Calcium [Mass/Vol] 8.4 mg/dL Normal 8.4-10.2 [facility] ([place]) Comment on above: Performed By: #### HANS SCHWARTZ, ANEU, ADIFF, CMP, GFR #### [address] [place] [address] Chloride [Moles/Vol] 95 mmol/L Low 98-107 [facility] ([place] Comment on above: Performed By: #### C HANS BUTLER, AMRIT, ADIFF, CMP, GFR #### [address] [address] CO2 [Moles/Vol] 21 mmol/L Low 22-29 [facility] ([place] Comment on above: Performed By: #### C HANS BUTLER, AMRIT, ADIFF, CMP, GFR #### [address] [address] Creatinine [Mass/Vol] 0.95 mg/dL Normal 0.55-1.02 [facility] ([place] Comment on above: Performed By: #### C HANS BUTLER, AMRIT, ADIFF, CMP, GFR #### [address] [address] Electrolyte Balance 16.0 mEq/L High 4.0-15.0 [facility] [place] Comment on above: Performed By: #### HANS SCHWARTZ, AMRIT, ADIFF, CMP, GFR #### [address] [address] Globulin 3.5 G/dL Normal [facility] ([place] Comment on above: Performed By: #### C HANS BUTLER, AMRIT, ADIFF, CMP, GFR #### [address] [address] Glucose [Mass/Vol] 525 mg/dL Critically abnormal 70-105 [facility] ([place] Comment on above: Performed By: #### C HANS BUTLER, AMRIT, ADIFF, CMP, GFR #### [address] [address] Potassium [Moles/Vol] 4.1 mmol/L Normal 3.5-5.1 [facility] ([place] Comment on above: Performed By: #### HANS SCHWARTZ, ANEU, ADIFF, CMP, GFR #### [address] [address] Sodium [Moles/Vol] 132 mmol/L Low 136-145 [facility] ([place]) Comment on above: Performed By: #### C HANS BUTLER, AMRIT, ADIFF, CMP, GFR #### [place] [id number] [place], [place] [address] Total Protein 7.0 G/dL Normal 6.4-8.2 [facility] ([place] Comment on above: Performed By: #### C HANS BUTLER, AMRIT, KHADARIFF, CMP, GFR #### [place] [id number] [place], [place] [address] Urea nitrogen [Mass/Vol] 7 mg/dL Normal 7-18 [facility] ([place] Comment on above: Performed By: #### C HANS BUTLER, AMRIT, ADIFF, CMP, GFR #### [place] [id number] [place], [place] [address] CT HEAD OR BRAIN W/O CONTRAS Ton [...] Date: 03/01/2023 8:58:57 PM Ordering Provider: BRITNEY Valencia [facility] ([place] LABORATORYOrdered By: SYSTEM SYSTEM on 03-01-2023 Calcium [...] HCG ( test) Ql (U) Negative Normal [facility] ([place] Comment on above: Performed By: #### C HANS BUTLER, ANEU, ADIFF, CMP, GFR #### [address] [address] test (u) int Not detected Invalid Interpretation Code [facility] ([place] Comment on above: Performed By: #### HANS SCHWARTZ, ANEU, ADIFF, CMP, GFR #### [address] [address] UAon 03-01-2023 Color (U) Yellow Normal [facility] ([place] Comment on above: Performed By: #### C HANS BUTLER, ANEU, ADIFF, CMP, GFR #### [address] [address] Glucose (U) [Mass/Vol] mg/dL Abnormal Negative [facility] [place] Comment on above: Performed By: #### HANS SCHWARTZ, ANEU, ADIFF, CMP, GFR #### [address] [address] Ketones Ql (U) Negative Normal Negative [facility] ([place] Comment on above: Performed By: #### HANS SCHWARTZ, AMRIT, ADIFF, CMP, GFR #### [address] [address] UA Appear Clear Normal Clear [facility] ([place] Comment on above: Performed By: #### C HANS BUTLER, ANEU, ADIFF, CMP, GFR #### [address] [address] UA Blood Trace Abnormal Negative [facility] ([place] Comment on above: Performed By: #### HANS SCHWARTZ, ANEU, ADIFF, CMP, GFR #### [address] [address] UA Leuk Est Negative Normal Negative [facility] ([place] Comment on above: Performed By: #### C HANS BUTLER, ANEU, ADIFF, CMP, GFR #### [address] [address] UA Nitrite Negative Normal Negative [facility] ([place] Comment on above: Performed By: #### C HANS BUTLER, ANEU, ADIFF, CMP, GFR #### [address] [address] UA pH 6.5 Normal 5.0 - 8.0 [facility] ([place] Comment on above: Performed By: #### C HANS BUTLER, ANEU, ADIFF, CMP, GFR #### [address] [address] UA Protein Negative Normal Negative [facility] ([place] Comment on above: Performed By: #### HANS SCHWARTZ, AMRIT, ADIFF, CMP, GFR #### [address] [address] UA Spec Grav 1.015 Normal 1.015-1.025 [facility] ([place] Comment on above: Performed By: #### C HANS BUTLER, ANEU, ADIFF, CMP, GFR #### [address] [address] UA Specimen Type Clean Catch Normal [facility] ([place] Comment on above: Performed By: #### C HANS BUTLER, ANEU, ADIFF, CMP, GFR #### [address] [address] UA Urobilinogen 0.2 E.U./dL Normal 0.2-1.0 [facility] ([place] Comment on above: Performed By: #### C HANS BUTLER, ANEU, ADIFF, CMP, GFR #### [address] [address] Urobilinogen (U) [Mass/Vol] Negative Normal Negative [facility] ([place] Comment on above: Performed By: #### HANS SCHWARTZ, ANEU, ADIFF, CMP, GFR #### [address] [address] CNPNon 09-11-2022 MUKUL Telephone (STED) ---- FANNYMONIQUE ([id number]) 1985 F Date Time Provider Department 09/11/22 LUPE GUTIERREZ During your visit today, we recorded the following information about you: Lupe Gutierrez APRN.CNP 09/11/2022 2:03 PM Signed Please call the patient. I reviewed her labs. Her antibodies are negative she is confirmed TYPE 2 diabetes. This is treated with lifestyle modifications - weight loss, healthy diet, medications. Her cholesterol panel is also elevated. STRONGLY recommend she sees the [facility] Director Life for meal planning. Her A1C is elevated, [...] phone pharmacy and notify patient. Lupe Gutierrez APRN.[employer] Component Latest Ref Rng AND Units 09/08/2022 [...] assist in scheduling a visit with Endo army ranger. She tried to schedule online and was unable. She states that the first available that she was able to locate was in February. She prefers [facility] or somewhere near there. Thank you! Anamaria Justin 09/15/2022 3:54 PM Signed Called PT, no [...] Inject 20 units once daily - Insulin Birchleaf, Disposable, (PEN NEEDLE) 32 gauge x 5/32 Inject 1 Each subcutaneously q 24 HR. Give with each insulin admin (more content not included)... Normal [facility] C-PEPTIDE BLDon 09-09-2022 C peptide [Mass/Vol] 2.90 ng/mL 0.81 - 3.85 ng/mL [facility] Comprehensive metabolic 2000 panelon 09-09-2022 Albumin [Mass/Vol] 4.1 g/dL 3.9 - 4.9 g/dL [facility] ALP [Catalytic activity/Vol] 98 U/L 34 - 123 U/L [facility] ALT [Catalytic activity/Vol] 22 U/L 7 - 38 U/L [facility] Anion gap [Moles/Vol] 13 mmol/L 9 - 18 mmol/L [facility] AST [Catalytic activity/Vol] 21 U/L 13 - 35 U/L [facility] Bilirubin [Mass/Vol] Low 0.2 - 1.3 mg/dL [facility] Calcium [Mass/Vol] 8.7 mg/dL 8.5 - 10. 2 mg/dL [facility] Chloride [Moles/Vol] 101 mmol/L 97 - 105 mmol/L [facility] CO2 [Moles/Vol] 21 mmol/L Low 22 - 30 mmol/L [facility] Creatinine [Mass/Vol] 0.55 mg/dL Low 0.58 - 0.96 mg/dL [facility] Estimated Glomerular Filtration Rate 123 mL/min/1.73m >=60 mL/min/1.73m [facility] Glucose [Mass/Vol] 182 mg/dL High 74 - 99 mg/dL [facility] Potassium [Moles/Vol] 4.2 mmol/L 3.7 - 5.1 mmol/L [facility] Protein [Mass/Vol] 6.8 g/dL 6.3 - 8.0 g/dL [facility] Sodium [Moles/Vol] 135 mmol/L Low 136 - 144 mmol/L [facility] Urea nitrogen [Mass/Vol] 8 mg/dL 7 - 21 mg/dL [facility] HbA1c (Bld)on 09-09-2022 Average glucose Estimated from glycated hemoglobin (Bld) [Mass/Vol] 229 mg/dL [facility] HbA1c (Bld) [Mass fraction] 9.6 % High 4.3 - 5.6 % [facility] LIPID PANEL, NONFASTINGon Cholesterol [Mass/Vol] 236 mg/dL High <200 mg/dL [facility] HDL Cholesterol, Nonfasting 45 mg/dL >39 mg/dL [facility] LDL Cholesterol, Nonfasting 160 mg/dL High <100 mg/dL [facility] LDL/HDL Ratio, Nonfasting 3.56 mg/dL High <2.54 mg/dL [facility] Non HDL Cholesterol, Nonfasting 191 mg/dL High <130 mg/dL [facility] Total Chol/HDL Ratio, Nonfasting 5.24 mg/dL High <5.10 mg/dL [facility] Triglycerides, Nonfasting 156 mg/dL High <150 mg/dL [facility] VLDL Cholesterol, Nonfasting 31 mg/dL High <30 mg/dL [facility] VITAMIN B12 BLOODon 09-10-19 Cobalamin (Vitamin B12) [Mass/Vol] 317 pg/mL 232 - 1,245 pg/mL [facility] 25(OH)D3 SerPl-mCncon 2022 25-hydroxyvitamin D3 [Mass/Vol] 12.5 ng/mL Low 31.0-80.0 [facility] Comment on above: Order Comment: Speci men Type: BLOOD SPECIMEN Ordering Facility: [facility] Address: [address] [place] [address] Performed By: #### 1 986-9 #### [facility] CLIA [id number] [address] [place] [address] [place] ALBUMIN/CREAT RATIO RND URon 09-08-2022 Albumin DL <= 20 mg/L (U) [Mass/Vol] mg/dL Normal [facility] Comment on above: Order Comment: Speci men Type: URINE SPECIMEN Ordering Facility: [facility] Address: [address] [place] [address] Performed By: #### U ACR #### [facility] CLIA [id number] [address] [place] [address] [place] Albumin/Creatinine (U) [Mass ratio] <9 Normal <30 [facility] Comment on above: Order Comment: Speci men Type: URINE SPECIMEN Ordering Facility: [facility] Address: [address] [place] [address] Result Comment: Adul t Male and Female Nephrotic Criteria: <30 mg/g is considered normal to mildly increased 30-300 mg/g is considered moderately increased >300 mg/g is considered severely increased KDIGO. (2013). KDIGO 2012 Clinical Practice Guideline for the Evaluation and Management of Chronic Kidney Disease. Official Journal of the International Society of Nephrology, 3(1), 1-150. Performed By: #### U ACR #### [facility] CLIA [id number] [address] [place] [address] [place] Creatinine (U) [Mass/Vol] 128.6 mg/dL Normal 20.0-300.0 [facility] Comment on above: Order Comment: Speci men Type: URINE SPECIMEN Ordering Facility: [facility] Address: [address] [place] [address] Performed By: #### U ACR #### [facility] CLIA [id number] [address] [place] [address] [place] C peptide SerPl-mCncon 09-08 C peptide [Mass/Vol] 2.90 ng/mL Normal 0.81-3.85 [facility] Comment on above: Order Comment: Speci men Type: BLOOD SPECIMEN Ordering Facility: [facility] Address: [address] [place] [address] Performed By: #### 1 986-9 #### [facility] [place] [id number] [address] [place] [address] [place] CNOVon 09-08-2022 CNOV Office Visit (AMYWST) ---- FANNYMONIQUE ([id number]) 1985 F Date Time Provider Department 09/08/22 [...] via US mail. HISTORY OF PRESENT ILLNESS; Moniqueanselmo Acevedo is a 36 year old FEMALE is presenting as a new patient to me regarding DM Type 2. She was initially diagnosed with diabetes in 2016 Previously patient of BC RUCKER MD, [facility] for gestational DM, last visit 09/12/2014 Initially [...] egg salad w fruit/veggie OR burrito from [employer] - drinks diet pop, water Dinner spaghetti OR vegetable/protein/s tarch OR previously eating a fast food meals more often Snacks gets cravings for straight sugar, will eat chocolate or other sweets Drinks protein shake, water, occ diet pop and coffee from [employer] Exercise: active at work, when at home [...] times daily (more content not included)... Normal [facility] Comprehensive metabolic 2000 panelon 09-08-2022 Albumin [Mass/Vol] 4.1 g/dL Normal 3.9-4.9 [facility] Comment on above: Order Comment: Speci men Type: BLOOD SPECIMEN Ordering Facility: [facility] Address: [address] [place] [address] Performed By: #### 5 5454-3 #### [facility] CLIA [id number] [address] [place] [address] [place] ALP [Catalytic activity/Vol] 98 U/L Normal 34-123 [facility] Comment on above: Order Comment: Speci men Type: BLOOD SPECIMEN Ordering Facility: [facility] Address: [address] [place] [address] Performed By: #### 5 5454-3 #### [facility] CLIA [id number] [address] [place] [address] [place] ALT [Catalytic activity/Vol] 22 U/L Normal 7-38 [facility] Comment on above: Order Comment: Speci men Type: BLOOD SPECIMEN Ordering Facility: [facility] Address: [address] [place] [address] Performed By: #### 5 5454-3 #### [facility] CLIA [id number] [address] [place] [address] [place] Anion gap [Moles/Vol] 13 mmol/L Normal 9-18 [facility] Comment on above: Order Comment: Speci men Type: BLOOD SPECIMEN Ordering Facility: [facility] Address: [facility] [place] [address] Performed By: #### 5 5454-3 #### [facility] CLIA [id number] [address] [place] [address] [place] AST [Catalytic activity/Vol] 21 U/L Normal 13-35 [facility] Comment on above: Order Comment: Speci men Type: BLOOD SPECIMEN Ordering Facility: [facility] Address: [address] [place] [address] Performed By: #### 5 5454-3 #### [facility] CLIA [id number] [address] [place] [id number] [place] Bilirubin [Mass/Vol] mg/dL Low 0.2-1.3 [facility] Comment on above: Order Comment: Speci men Type: BLOOD SPECIMEN Ordering Facility: [facility] Address: [address] [address] Performed By: #### 5 5454-3 #### [facility] CLIA [id number] [address] [place] [address] [place] Calcium [Mass/Vol] 8.7 mg/dL Normal 8.5-10.2 [facility] Comment on above: Order Comment: Speci men Type: BLOOD SPECIMEN Ordering Facility: [facility] Address: [address] [place] [address] Performed By: #### 5 5454-3 #### [facility] CLIA [id number] [address] [place] [address] [place] Chloride [Moles/Vol] 101 mmol/L Normal 97-105 [facility] Comment on above: Order Comment: Speci men Type: BLOOD SPECIMEN Ordering Facility: [facility] Address: [address] [place] [address] Performed By: #### 5 5454-3 #### [facility] CLIA [id number] [address] [place] [address] [place] CO2 [Moles/Vol] 21 mmol/L Low 22-30 [facility] Comment on above: Order Comment: Speci men Type: BLOOD SPECIMEN Ordering Facility: [facility] Address: [address] [address] Performed By: #### 5 5454-3 #### [facility] CLIA [id number] [address] [place] [address] [place] Creatinine [Mass/Vol] 0.55 mg/dL Low 0.58-0.96 [facility] Comment on above: Order Comment: Speci men Type: BLOOD SPECIMEN Ordering Facility: [facility] Address: [address] [place] [address] Performed By: #### 5 5454-3 #### [facility] CLIA [id number] [facility] [place] [address] [place] [facility] ESTIMATED GLOMERULAR FILTRATION RATE 123 mL/min/1.73m??? Normal >=60 [facility] Comment on above: Order Comment: Arash boss Type: BLOOD SPECIMEN Ordering Facility: [facility] Address: [place] [address] Result Comment: Cheryl mated Glomerular Filtration Rate [...] GFR. Performed By: #### 5 5454-3 #### [facility] CLIA [id number] [address] [place] [address] STATES [facility] Glucose [Mass/Vol] 182 mg/dL High 74-99 [facility] Comment on above: Order Comment: Arash boss Type: BLOOD SPECIMEN Ordering Facility: [facility] Address: [facility] [place] [address] Result Comment: The [place] Diabetes Association (ADA) provides guidance for cutoff [...] Standards of Medical Care in Diabetes 2016, [place] Diabetes Association. Diabetes Care. 2016.39(Suppl 1). Performed By: #### 5 5454-3 #### [facility] CLIA [id number] [facility] [address] [place] Potassium [Moles/Vol] 4.2 mmol/L Normal 3.7-5.1 [facility] Comment on above: Order Comment: Speci men Type: BLOOD SPECIMEN Ordering Facility: [facility] Address: [address] [place] [address] Performed By: #### 5 5454-3 #### [facility] CLIA [id number] [address] [place] [address] [place] Protein [Mass/Vol] 6.8 g/dL Normal 6.3-8.0 [facility] Comment on above: Order Comment: Speci men Type: BLOOD SPECIMEN Ordering Facility: [facility] Address: [address] [place] [address] Performed By: #### 5 5454-3 #### [facility] CLIA [id number] [address] [place] [address] [place] Sodium [Moles/Vol] 135 mmol/L Low 136-144 [facility] Comment on above: Order Comment: Speci men Type: BLOOD SPECIMEN Ordering Facility: [facility] Address: [address] [place] [address] Performed By: #### 5 5454-3 #### [facility] CLIA [id number] [address] [place] [address] [place] Urea nitrogen [Mass/Vol] 8 mg/dL Normal 7-21 [facility] Comment on above: Order Comment: Speci men Type: BLOOD SPECIMEN Ordering Facility: [facility] Address: [address] [place] [address] Performed By: #### 5 5454-3 #### [facility] CLIA [id number] [address] [place] [address] [place] GAD65 Ab Ser-aCncon 09-09-19 23 Glutamate decarboxylase 65 Ab Qn (S) <5.0 Normal <=5.0 [facility] Comment on above: Order Comment: Speci men Type: BLOOD SPECIMEN [facility]ing Facility: [facility] Address: [facility] [place] [address] Result Comment: Anti -glutamic acid decarboxylase antibody [...] required. Performed By: #### 5 5454-3 #### [facility] CLIA [id number] [address] [place] [address] [place] Glutamate decarboxylase 65 A b Qn (S)on 09-08-2022 GLUTAMIC ACID DECARBOXYLAS AB QUALITATIVE Negative Normal Negative [facility] Comment on above: Order Comment: Arash boss Type: BLOOD SPECIMEN [facility]ing Facility: [facility] Address[facility] [place] [address] Performed By: #### 5 5454-3 #### [facility] CLIA [id number] [address] [place] [address] [place] HbA1c (Bld)on 09-08-2022 Average glucose Estimated from glycated hemoglobin (Bld) [Mass/Vol] 229 mg/dL Normal [facility] Comment on above: Order Comment: Arash boss Type: BLOOD SPECIMEN Ordering Facility: [facility] Address: [address] [place] [address] Result Comment: eAG: (Estimated average glucose) is a calculated value from HgbA1c and is enrollment eligibility representative of the average blood glucose level in the last 2-3 month period. Performed By: #### 5 5454-3 #### [facility] CLIA [id number] [address] [place] [address] [place] HbA1c (Bld) [Mass fraction] 9.6 % High 4.3-5.6 [facility] Comment on above: Order Comment: Arash boss Type: BLOOD SPECIMEN Ordering Facility: [facility] Address: [address] [place], [place] [address] Result Comment: [place] Diabetes Association guidelines indicate that patients with HgbA1c in the range 5.7-6.4% are at increased risk for development of diabetes, and intervention by lifestyle modification may be beneficial. HgbA1c greater or equal to 6.5% is considered diagnostic of diabetes. Performed By: #### 5 5454-3 #### [facility] CLIA [id number] [address] [place], [place] [address] [place] ISLET CELL ABon 09-08-2022 ISLET CELL AB <1:4 Normal <1:4 [facility] Comment on above: Order Comment: Specdawit boss Type: BLOOD SPECIMEN Ordering Facility: [facility] Address: [address] [address] Result Comment: INTE RPRETIVE INFORMATION: Islet Cell [...] developed and its performance characteristics determined by [facility]. It has not been cleared or approved by the US Food and Drug Administration. This test was performed in a CLIA certified laboratory and is intended for clinical purposes. Performed By: [facility] [address] [place] [address] Services Manager: Edgar Phillips MD, PhD Performed By: #### 1 986-9 #### [facility] CLIA [id number] [address] [place], [place] [address] [place] LIPID PANEL, NONFASTINGon Cholesterol [Mass/Vol] 236 mg/dL High <200 [facility] Comment on above: Order Comment: Arash boss Type: BLOOD SPECIMEN Ordering Facility: [facility] Address: [address] [place] [address] Result Comment: <200 mg/dL, Desirable 200-239 mg/dL, Borderline high >239 mg/dL, High Performed By: #### 5 5454-3 #### [facility] CLIA [id number] [address] [place] [address] [place] [facility] [place] HDL CHOLESTEROL, NF 45 mg/dL Normal >39 [facility] Comment on above: Order Comment: Arash karyn Type: BLOOD SPECIMEN Ordering Facility: [facility] Address: [facility] [place] [address] Result Comment: 40-5 9 mg/dL, Acceptable >59 mg/dL, High: Negative risk factor for coronary heart disease <40 mg/dL, Low: Positive risk factor for coronary heart disease Performed By: #### 5 5454-3 #### [facility] CLIA [id number] [address] [place] [address] [place] LDL CHOLESTEROL, NF 160 mg/dL High <100 [facility] Comment on above: Order Comment: Arash karyn Type: BLOOD SPECIMEN Ordering Facility: [facility] Address: [address] [place] [address] Result Comment: <100 mg/dL, Optimal 100-129 mg/dL, Near optimal/above optimal 130-159 mg/dL, Borderline high 160-189 mg/dL, High >189 mg/dL, Very high Secondary prevention optimal LDL Cholesterol levels are recommended to be < 70 mg/dL Performed By: #### 5 5454-3 #### [facility] CLIA [id number] [address] OF [facility] LDL/HDL RATIO, NF 3.56 mg/dL High <2.54 [facility] Comment on above: Order Comment: Arash karyn Type: BLOOD SPECIMEN Ordering Facility: [facility] Address: [address] [place] [address] Result Comment: Refe rence: 1. National Cholesterol Education Program ATP III Guideline At-A-Glance Quick Desk Reference: National Heart, Lung, and Blood [place]. National Institutes of Health. 2001: NIH Publication No. 01-3305. 2. An International Atherosclerosis Society position paper: global recommendations for the management of dyslipidemia: executive summary, Atherosclerosis. 2014: 232(2):410-413. Performed By: #### 5 5454-3 #### [facility] CLIA [id number] [address] [place] [address] [place] NON HDL CHOL, NF 191 mg/dL High <130 [facility] Comment on above: Order Comment: Speci men Type: BLOOD SPECIMEN Ordering Facility: [facility] Address: [address] [place] [address] Result Comment: <130 mg/dL, Optimal 130-159 mg/dL, Near optimal/above optimal 160-189 mg/dL, Borderline high 190-219 mg/dL, High >219 mg/dL, Very high Secondary prevention optimal non HDL Cholesterol levels are recommended to be <100 mg/dL Performed By: #### 5 5454-3 #### [facility] CLIA [id number] [address] [place] [address] [place] T CHOL/HDL RATIO NF 5.24 mg/dL High <5.10 [facility] Comment on above: Order Comment: Speci men Type: BLOOD SPECIMEN Ordering Facility: [facility] Address: [address] [place] [address] Performed By: #### 5 5454-3 #### [facility] CLIA [id number] [address] [place] [address] [place] TRIGLYCERIDES, NF 156 mg/dL High <150 [facility] Comment on above: Order Comment: Speci men Type: BLOOD SPECIMEN Ordering Facility: [facility] Address: [address] [place] [address] Result Comment: <150 mg/dL, Normal 150-199 mg/dL, Borderline high 200-499 mg/dL, High >499 mg/dL, Very high Performed By: #### 5 5454-3 #### [facility] CLIA [id number] [address] [place] [address] [place] VLDL CHOLESTEROL, NF 31 mg/dL High <30 [facility] Comment on above: Order Comment: Speci men Type: BLOOD SPECIMEN Ordering Facility: [facility] Address: [facility] [address] [place] [id number] Performed By: #### 5 5454-3 #### [facility] CLIA [id number] [address] [place] [address] OF [facility] THYROID PEROXIDASE ANTIBODY BLOODon 09-08-2022 TPO Ab Qn [IU]/mL Normal <5.6 [facility] Comment on above: Order Comment: Speci men Type: BLOOD SPECIMEN Ordering Facility: [facility] Address: [address] [place] [address] Result Comment: Thyr oid Peroxidase Antibody test is used as an aid in diagnosis of autoimmune thyroid disease. Clinical correlation is required. Performed By: #### 1 986-9 #### [facility] CLIA [id number] [address] [place] [address] [place] Vit B12 SerPl-mCncon 023 Cobalamin (Vitamin B12) [Mass/Vol] 317 pg/mL Normal 232-1245 [facility] Comment on above: Order Comment: Speci men Type: BLOOD SPECIMEN Ordering Facility: [facility] Address: [facility] [place] [address] Performed By: #### 5 5454-3 #### [facility] CLIA [id number] [address] [place] [address] [place] .Auto Diffon 08-25-2022 Basophil, Absolute 0.1 10 3/mcL Normal 0.0-0.2 [facility] ([place]) Comment on above: Performed By: #### B MP, CBC, MDW, ADIFF, GFR, PHV, ANEU ####Abdirashid [address] [place], [place] [address] Basophils/100 WBC (Bld) 0.6 % Normal 0.0-2.5 A [facility] ([place]) Comment on above: Performed By: #### B MP, CBC, MDW, ADIFF, GFR, PHV, ANEU ####Abdirashid [address] [place], [place] [address] Eosinophil, Absolute 0.1 10 3/mcL Normal 0.0-0.4 [facility] ([place] Comment on above: Performed By: #### B MP, CBC, MDW, ADIFF, GFR, PHV, ANEU ####Abdirashid [address] [place], [place] [address] Eosinophils/100 WBC (Bld) 1.0 % Normal 0.0-7.0 [facility] ([place]) Comment on above: Performed By: #### B MP, CBC, MDW, ADIFF, GFR, PHV, ANEU ####Abdirashid [address] [place], [place] [address] Lymphocyte, Absolute 2.3 10 3/mcL Normal 0.8-3.9 [facility] [place] Comment on above: Performed By: #### B MP, CBC, MDW, ADIFF, GFR, PHV, ANEU ####Abdirashid [address] [place], [place] [address] Lymphocytes/100 WBC (Bld) 24.7 % Normal 10.0-50.0 [facility] ([place] Comment on above: Performed By: #### B MP, CBC, MDW, ADIFF, GFR, PHV, ANEU ####Abdirashid [address] [place], [place] [address] Monocyte, Absolute 0.6 10 3/mcL Normal 0.2-1.0 [facility] ([place]) Comment on above: Performed By: #### B MP, CBC, MDW, ADIFF, GFR, PHV, ANEU ####Abdirashid [address] [place], [place] [address] Monocytes/100 WBC (Bld) 6.6 % Normal 1.7-13.0 [facility] ([place]) Comment on above: Performed By: #### B MP, CBC, MDW, ADIFF, GFR, PHV, ANEU ####Abdirashid [address] [place], [place] [address] Neutrophils/100 WBC (Bld) 67.1 % Normal 37.0-80.0 [facility] ([place]) Comment on above: Performed By: #### B MP, CBC, MDW, JUAQUIN, GFR, PHV, ANEU ####[address] [address] .GFRon 08-25-2022 GFR 102 ml/min/1.73sqm Normal [facility] ([place] Comment on above: Result Comment: GFR Population [...] HANS BUTLER, ANEU, ADIFF, CMP, GFR #### Abdirashid [address] [address] GFR Non- 84 ml/min/1.73sqm Normal [facility] ([place]) Comment on above: Result Comment: GFR Population [...] HANS BUTLER, ANEU, ADIFF, CMP, GFR #### [address] [address] .MDWon 08-25-2022 Monocyte Distribution Width 19.73 Normal 0.00-20.00 [facility] ([place]) Comment on above: Result Comment: For ED adult patients suspected of sepsis, MDW<=20.0 does not rule out sepsis or risk of sepsis Performed By: #### B MP, CBC, MDW, ADIFF, GFR, PHV, ANEU ####[address] [address] .NEUABSon 08-25-2022 Neutrophil, Absolute 6.1 10 3/mcL Normal 2.9-6.2 [facility] [place] Comment on above: Performed By: #### B MP, CBC, HANS, ADIFF, GFR, PHV, ANEU ####[place] [address] .Urinalysis Microscopic (AO) on 08-25-2022 UA Bacteria Trace Abnormal [facility] ([place] Comment on above: Performed By: #### C HANS BUTLER, ANEU, ADIFF, CMP, GFR #### [place] [address] UA RBC 0-5 Abnormal None Seen [facility] ([place] Comment on above: Performed By: #### C HANS BUTLER, ANEU, ADIFF, CMP, GFR #### [place] [id number] UA Squam Epithelial 0-5 Abnormal None Seen [facility] [place] Comment on above: Performed By: #### C HANS BUTLER, ANEU, ADIFF, CMP, GFR #### [place] [id number] UA WBC 0-5 Abnormal None Seen [facility] ([place] Comment on above: Performed By: #### C HANS BUTLER, ANEU, ADIFF, CMP, GFR #### [place] [address] BMPon 08-25-2022 BUN/Creatinine Ratio 13 ratio Normal 7-27 [facility] ([place]) Comment on above: Performed By: #### C HANS BUTLER, ANEU, ADIFF, CMP, GFR #### [address] [address] Calcium [Mass/Vol] 9.3 mg/dL Normal 8.4-10.2 [facility] ([place]) Comment on above: Performed By: #### C HANS BUTLER, AMRIT, ADIFF, CMP, GFR #### [address] [address] Chloride [Moles/Vol] 96 mmol/L Low 98-107 [facility] ([place]) Comment on above: Performed By: #### HANS SCHWARTZ, AMRIT, ADIFF, CMP, GFR #### [address] [address] CO2 [Moles/Vol] 22 mmol/L Normal 22-29 [facility] ([place]) Comment on above: Performed By: #### C HANS BUTLER, AMRIT, ADIFF, CMP, GFR #### [address] [address] Creatinine [Mass/Vol] 0.78 mg/dL Normal 0.55-1.02 [facility] ([place]) Comment on above: Performed By: #### C HANS BUTLER, AMRIT, ADIFF, CMP, GFR #### [address] [address] Electrolyte Balance 14.0 mEq/L Normal 4.0-15.0 [facility] [place] Comment on above: Performed By: #### HANS SCHWARTZ, ANEU, ADIFF, CMP, GFR #### [address] [address] Glucose [Mass/Vol] 399 mg/dL High 70-105 [facility] ([place]) Comment on above: Performed By: #### HANS SCHWARTZ, AMRIT, ADIFF, CMP, GFR #### [address] [address] Potassium [Moles/Vol] 3.9 mmol/L Normal 3.5-5.1 [facility] ([place]) Comment on above: Performed By: #### HANS SCHWARTZ, ANEU, ADIFF, CMP, GFR #### [address] [address] Sodium [Moles/Vol] 132 mmol/L Low 136-145 [facility] ([place]) Comment on above: Performed By: #### C HANS BUTLER, ANEU, ADIFF, CMP, GFR #### Abdirashid [place] [address] [place], [place] [address] Urea nitrogen [Mass/Vol] 10 mg/dL Normal 7-18 [facility] ([place] Comment on above: Performed By: #### C HANS BUTLER, ANEU, ADIFF, CMP, GFR #### [address] [address] CBCon 08-25-2022 Erythrocyte distribution width (RBC) [Ratio] 13.8 % Normal 11.5-14.5 [facility] ([place] Comment on above: Performed By: #### B KATIE, HANS COLE, JUAQUIN, GFR, PHV, ANEU ####Abdirashid [address] [place], [place] [address] Hematocrit (Bld) [Volume fraction] 43.4 % Normal 37.0-47.0 [facility] ([place] Comment on above: Performed By: #### B KATIE, HANS COLE, JUAQUIN, GFR, PHV, ANEU ####Abdirashid [address] [place], [place] [address] Hgb 14.4 G/dL Normal 12.0-16.0 [facility] ([place] Comment on above: Performed By: #### B KATIE, HANS COLE, JUAQUIN, GFR, PHV, ANEU ####Abdirashid [address] [place], [place] [address] MCH (RBC) [Entitic mass] 29.4 pg Normal 27.0-31.2 [facility] ([place] Comment on above: Performed By: #### B KATIE, DOUGLAS, HANS, JUAQUIN, GFR, PHV, ANEU ####Abdirashid [address] [place], [place] [address] MCHC 33.2 G/dL Normal 33.0-37.0 [facility] ([place] Comment on above: Performed By: #### B MP, CBC, MDW, ADIFF, GFR, PHV, ANEU ####Abdirashidstephen [address] [place], [place] [address] MCV (RBC) [Entitic vol] 88.5 fL Normal 80.0-94.0 [facility] [facility] ([place] Comment on above: Performed By: #### B MP, CBC, MDW, ADIFF, GFR, PHV, ANEU ####Abdirashid [address], [place] [address] Platelet 228 10 3/mcL Normal 130-400 [facility] ([place] Comment on above: Performed By: #### B MP, CBC, MDW, ADIFF, GFR, PHV, ANEU ####Abdirashid [address], [place] [address] Platelet mean volume (Bld) [Entitic vol] 9.0 fL Normal 7.4-10.4 [facility] ([place] Comment on above: Performed By: #### B MP, CBC, MDW, ADIFF, GFR, PHV, ANEU ####Abdirashid [address], [place] [address] RBC 4.90 10 6/mcL Normal 4.20-5.40 [facility] ([place] Comment on above: Performed By: #### B MP, CBC, MDW, ADIFF, GFR, PHV, ANEU ####Abdirashid [address], [place] [address] WBC 9.2 10 3/mcL Normal 4.6-10.8 [facility] ([place] Comment on above: Performed By: #### B MP, CBC, MDW, ADIFF, GFR, PHV, ANEU ####Abdirashid [address], [place] [address] LABORATORYOrdered By: Nereyda Dominguez on 08-25-2022 Blood Glucose Interventions Notify physician (08/25/22 3:45 PM) [facility] Work Phone: Blood Glucose Testing Reason Routine (08/25/22 3:45 PM) [facility] Work Phone: Glucose [Mass/Vol] 202 mg/dL Invalid Interpretation Code 70 - 110 mg/dL [facility] Work Phone: LABORATORYOrdered By: Andre Coppola [...] PHVon 08-25-2022 pH Venous 7.46 High 7.31-7.41 [facility] ([place] Comment on above: Performed By: #### C HANS BUTLER, AMRIT, ADIFF, CMP, GFR #### [address] [address] PREGUon 08-25-2022 HCG ( test) Ql (U) Negative Normal [facility] ([place] Comment on above: Performed By: #### C HANS BUTLER, AMRIT, ADIFF, CMP, GFR #### [address] [address] test (u) int Not detected Invalid Interpretation Code [facility] ([place] Comment on above: Performed By: #### HANS SCHWARTZ, AMRIT, ADIFF, CMP, GFR #### [address] [address] UAon 08-25-2022 Color (U) Yellow Normal [facility] ([place] Comment on above: Performed By: #### HANS SCHWARTZ, AMRIT, ADIFF, CMP, GFR #### [address] [address] Glucose (U) [Mass/Vol] mg/dL Abnormal Negative [facility] [place] Comment on above: Performed By: #### HANS SCHWARTZ, AMRIT, ADIFF, CMP, GFR #### [address] [address] Ketones Ql (U) Negative Normal Negative [facility] ([place] Comment on above: Performed By: #### HANS SCHWARTZ, AMRIT, ADIFF, CMP, GFR #### [address] [address] UA Appear Slightly Cloudy Abnormal Clear [facility] ([place] Comment on above: Performed By: #### HANS SCHWARTZ, AMRIT, ADIFF, CMP, GFR #### [address] [address] UA Blood Trace Abnormal Negative [facility] ([place] Comment on above: Performed By: #### C HANS BUTLER, ANEU, ADIFF, CMP, GFR #### [address] [address] UA Leuk Est Negative Normal Negative [facility] ([place] Comment on above: Performed By: #### C HANS BUTLER, ANEU, ADIFF, CMP, GFR #### [address] [address] UA Nitrite Negative Normal Negative [facility] ([place] Comment on above: Performed By: #### C HANS BUTLER, ANEU, ADIFF, CMP, GFR #### [address] [address] UA pH 6.0 Normal 5.0 - 8.0 [facility] ([place] Comment on above: Performed By: #### HANS SCHWARTZ, AMRIT, ADIFF, CMP, GFR #### [address] [address] UA Protein Negative Normal Negative [facility] ([place] Comment on above: Performed By: #### C HANS BUTLER, AMRIT, ADIFF, CMP, GFR #### [address] [address] UA Spec Grav 1.010 Abnormal 1.015-1.025 [facility] ([place] Comment on above: Performed By: #### HANS SCHWARTZ, ANEU, ADIFF, CMP, GFR #### [address] [address] UA Specimen Type Clean Catch Normal [facility] ([place] Comment on above: Performed By: #### HANS SCHWARTZ, ANEU, ADIFF, CMP, GFR #### [address] [address] UA Urobilinogen 0.2 E.U./dL Normal 0.2-1.0 [facility] ([place] Comment on above: Performed By: #### HANS SCHWARTZ, ANEU, ADIFF, CMP, GFR #### [address], [place] [address] Urobilinogen (U) [Mass/Vol] Negative Normal Negative [facility] ([place]) Comment on above: Performed By: #### C CARRIE, HANS, ANEU, ADABIEL, CMP, GFR #### [id number] [place], [place] [address] LUCIANA BY IFA SCREENon 06-04-19 23 Nuclear Ab IF (S) [Titer] Negative Normal Negative [facility] Comment on above: Order Comment: Speci [facility] Type: BLOOD SPECIMEN Ordering Facility: [facility] Address: [address] [place] [address] Result Comment: Anti -nuclear antibody test is used as an aid in diagnosis of systemic autoimmune diseases. Where positive and clinically warranted, follow-up using disease-specific testing is recommended. Low positive titers are not uncommon with advanced age, certain chronic infections, and malignancies among others. Test methodology: Indirect fluorescence immunoassay (IFA) using HEp-2 cells. Performed By: #### 5 5454-3 #### [facility] CLIA [id number] [address] [place] [address] [place] HbA1c (Bld)on 06-04-2022 Average glucose Estimated from glycated hemoglobin (Bld) [Mass/Vol] 223 mg/dL Normal [facility] Comment on above: Order Comment: Arash boss Type: BLOOD SPECIMEN Ordering Facility: [facility] Address: [address] [place] [address] Result Comment: eAG: (Estimated average glucose) is a calculated value from HgbA1c and is enrollment eligibility representative of the average blood glucose level in the last 2-3 month period. Performed By: #### 5 5454-3 #### [facility] CLIA [id number] [address] [place] [address] [place] HbA1c (Bld) [Mass fraction] 9.4 % High 4.3-5.6 [facility] Comment on above: Order Comment: Arash [facility] Type: BLOOD SPECIMEN Ordering Facility: [facility] Address: [address] [place] [address] Result Comment: Amer [place] Diabetes Association guidelines indicate that patients with HgbA1c in the range 5.7-6.4% are at increased risk for development of diabetes, and intervention by lifestyle modification may be beneficial. HgbA1c greater or equal to 6.5% is considered diagnostic of diabetes. Performed By: #### 5 5454-3 #### [facility] CLIA [id number] [address] [place] [address] [place] Rheumatoid fact SerPl-aCncon 06-04-2022 Rheumatoid factor Qn [IU]/mL Normal <[facility] Comment on above: Order Comment: Speci men Type: BLOOD SPECIMEN Ordering Facility: [facility] Address: [address] [place] [address] Performed By: #### 5 5454-3 #### [facility] CLIA [id number] [address] [place] [address] [place] Culture, urineOrdered By: Lucy Ambriz on 05-30-2022 Bacteria identified Cx Nom (U) Klebsiella pneumoniae sp pneum [facility] Basophil percentageOrdered B y: David Ambriz on 05-28-2022 Basophil percentage 10-25 SEEN /hpf 0-5 [facility] Bilirubin Test strip Ql (U)O rdered By: David Ambriz on 05-28-2022 Bilirubin Ql (U) Negative Negative [facility] Ketones Test strip Ql (U)Ord ered By: David Ambriz on 05-28-2022 Ketones Ql (U) 5 mg/dl Negative [facility] Laboratory - Chemistry and C hemistry - challengeon 05-28-2022 Glucose [Mass/Vol] 242 mg/dL [facility] Bilirubin Ql (U) Small (1+) [facility] Glucose Ql (U) 1000 g/dL [facility] Ketones Ql (U) Negative [facility] pH (U) 6.5 [pH] [facility] Specific gravity (U) [Rel density] 1.020 [facility] HCG ( test) Ql (U) Negative [facility] Laboratory - Hematology and Cell countson 05-28-2022 Hemoglobin Ql (U) Small [facility] Laboratory - Specimen inform ationon 05-28-2022 Clarity (U) Cloudy [facility] Color (U) STRAW [facility] Laboratory - Urinalysison Nitrite Ql (U) Negative [facility] Protein Ql (U) 1+ [facility] Mucus LM Ql (Urine sed)Order ed By: David Ambriz on 05-28-2022 Mucus Ql (Urine sed) 0 SEEN /hpf [facility] Nitrite Test strip Ql (U)Ord ered By: David Ambriz on 05-28-2022 Nitrite Ql (U) Negative Negative [facility] No Panel Informationon 05-28 Urine Leukocytes Positive [facility] Urine Non-Hemolyzed Blood [facility] Protein Test strip Ql (U)Ord ered By: David Ambriz on 05-28-2022 Protein Ql (U) 30 mg/dl Negative [facility] Squamous epithelial cells de tection in urine sediment by light microscopyOrdered By: David Ambriz on 05-28-2022 Epithelial cells.squamous LM Ql (Urine sed) 5-10 SEEN /hpf 5-10 [facility] Urine blood detectionOrdered By: David Ambriz on 05-28-2022 RBC Ql (U) 50 /ul Negative [facility] RBC Ql (U) 0-5 SEEN /hpf 0-5 [facility] Urine clarityOrdered By: Jason Ambriz on 05-28-2022 Clarity (U) Sl. Cloudy Clear [facility] Urine color determinationOrd ered By: David Ambriz on 05-28-2022 Color (U) Yellow Yellow [facility] Urine glucose detectionOrder ed By: David Ambriz on 05-28-2022 Glucose Ql (U) 1000 mg/dl Normal [facility] Urine leukocyte esterase det ection by dipstickOrdered By: David Ambriz on 05-28-2022 Leukocyte esterase Test strip Ql (U) 100 /ul Negative [facility] Urine pHOrdered By: David odom on 05-28-2022 pH (U) 6.5 [pH] 5.0 - 8.0 [facility] Urine sediment bacteria coun t by microscopy (number/high power field)Ordered By: David Ambriz on 05-28-2022 Bacteria LM.HPF (Urine sed) [#/Area] 2 /[HPF] None Seen [facility] Urine specific gravity measu rementOrdered By: David Ambriz on 05-28-2022 Specific gravity (U) [Rel density] 1.015 1.002-1.030 [facility] Urobilinogen Auto test strip Ql (U)Ordered By: David Ambriz on 05-28-2022 Urobilinogen Ql (U) Normal mg/dl Normal [facility] C. trachomatis+N. gonorrhoea e DNA YURIY+probe Ql (Unsp spec)on 05-13-2022 C. trachomatis DNA YURIY+probe Ql (Unsp spec) Negative Negative for Chlamydia trachomatis by amplificaton [facility] N. gonorrhoeae DNA YURIY+probe Ql (Unsp spec) Negative Negative for Neisseria gonorrhoeae by amplification [facility] BACTERIAL VAGINOSIS AMPLIFIC ATIONon 05-12-2022 Lactobacillus crispatus+gasseri+jense kyle + Gardnerella vaginalis + Atopobium vaginae rRNA YURIY+probe Ql (Vag fld) Positive Abnormal Negative for bacterial vaginosis [facility] Lactobacillus crispatus+gasseri+jense kyle + Gardnerella vaginalis + Atopobium vaginae rRNA YURIY+probe Ql (Vag fld) Positive Abnormal Negative for bacterial vaginosis [facility] Comment on above: Order Comment: Speci men Type: BLOOD SPECIMEN Ordering Facility: [facility] Address: [address] [place], [place] [address] Performed By: #### 5 5454-3 #### [facility] CLIA [id number] [address] [place] [address] OF [facility] C. trachomatis+N. gonorrhoea e DNA YURIY+probe Ql (Unsp spec)on 05-12-2022 C. trachomatis DNA YURIY+probe Ql (Unsp spec) Negative Normal Negative for Chlamydia trachomatis by amplificaton [facility] Comment on above: Order Comment: Speci men Type: SWAB Ordering Facility: [facility] Address: [address] [place] [address] Performed By: #### 3 6902-5 #### [facility] CLIA [id number] [address] OF [facility] N. gonorrhoeae DNA YURIY+probe Ql (Unsp spec) Negative Normal Negative for Neisseria gonorrhoeae by amplification [facility] Comment on above: Order Comment: Speci men Type: SWAB Ordering Facility: [facility] Address: [address] [id number] Performed By: #### 3 6902-5 #### [facility] CLIA [id number] [address] [place] [address] OF [facility] BAILEY / TRICHOMONAS AMPLIF ICATIONon 05-12-2022 C. glabrata RNA YURIY+probe Ql (Vag fld) Negative Negative for Bailey glabrata [facility] Bailey albicans, C. dubliniensis, C. parapsilosis, and C. tropicalis RNA YURIY+probe Ql (Vag fld) Positive Abnormal Negative for Bailey species [facility] T. vaginalis DNA YURIY+probe Ql (Unsp spec) Negative Negative for Trichomonas vaginalis by amplification [facility] BAILEY / TRICHOMONAS AMPLIFICATION BAILEY SPECIES GROUP RNA: Positive for Bailey species BAILEY GLABRATA RNA: Negative for Bailey glabrata TRICH VAG AMPLIFICATION RNA: Negative for Trichomonas vaginalis by amplification Abnormal [facility] Comment on above: Performed By: #### 5 5454-3 #### [facility] CLIA [id number] [address] [place] [address] OF [facility] CNOVon 05-12-2022 CNOV Office Visit (OBGYWM) ---- MONIQUE ACEVEDO ([id number]) 1985 F Date Time Provider Department 05/12/22 11:30 AM SAVANNAH VALVERDE During your visit today, we recorded the following information about you: Blood pressure Weight Last Period 118/78 108.9 kg 04/16/22 Savannah Valverde APRN.YUSUF 05/12/2022 12:59 PM Signed [employer]k [employer] C[employer] Tier Off offered: Patient declines. Monique Acevedo is a [...] external genitalia normal, normal Bartholin's glands, urethra, Longdale's glands, no vulvar lesions, no cervical lesions, [...] results. Follow- up as needed. Savannah Valverde APRN.YUSUF Medical Decision Making: Problems: Low: Acute, uncomplicated illness or injury Moderate: 1+ chronic illnesses with change Data: Unique test(s) ordered: 2 Risk: Moderate: Drug management Medical Decision Making Level: 4 - Moderate Savannah Valverde APRN.YUSUF 05/12/2022 12:09 PM Addendum Patient was a [...] Date Reviewed: 05/12/2022 Reviewed by: Savannah Valverde APRN.PREASSEMBLER PRINTED CIRCUIT BOARD - Fully Assessed Reason for Visit: Vaginal Problem [117] Primary Visit Diagnosis:Vaginal discharge [N89.8] Other Visit Diagnoses:Folliculi tis [L73.9] Screen for STD (sexually transmitted disease) [Z11.3] Type 2 (more content not included)... Normal [facility] [id number] 05-06-2022 SARS-CoV-2 (COVID-19) RNA YURIY+probe Ql (Unsp spec) Negative Normal Negative [facility] ([place]) Comment on above: Performed By: #### C HANS BUTLER, AMRIT, JUAQUIN, CMP, GFR #### Abdirashid [address] [place], [place] [address] SARS-CoV-2 (COVID-19) RNA YURIY+probe Ql (Unsp spec) Normal [facility] ([place]) Comment on above: Result Comment: Nega [...] Int Performed By: #### C HANS BUTLER, AMRIT, ADABILE, CMP, GFR #### Abdirash[address] [place], [place] [address] FLURSVon 05-06-2022 Flu A PCR (AO) Negative Normal Negative [facility] ([place]) Comment on above: Result Comment: Posi tive [...] REPEAT COLLECTION AND TESTING IS RECOMMENDED. The Divv[employer]hot Flu A/B & RSV Assay is a real-time polymerase chain reaction (PCR) based qualitative in vitro diagnostic test for the direct detection and differentiation of influenza A virus, influenza B virus, and respiratory syncytial virus (RSV) nucleic acid in nasopharyngeal swab (BRIDGE IRONWORKER HELPER) specimens from patients with signs and symptoms of respiratory infection in conjunction with clinical and laboratory findings. The test is intended for use as an aid in the differential diagnosis of influenza A virus, influenza B virus, and RSV in humans and is not intended to detect influenza C. Performed By: #### C CARRIE, HANS, ANEU, ADABIEL, CMP, GFR #### [place] [address] Flu B PCR (AO) Negative Normal Negative [facility] ([place] Comment on above: Result Comment: Posi tive [...] virus (RSV) nucleic acid in nasopharyngeal swab (BRIDGE IRONWORKER HELPER) specimens from patients with signs and symptoms of respiratory infection in conjunction with clinical and laboratory findings. The test is intended for use as an aid in the differential diagnosis of influenza A virus, influenza B virus, and RSV in humans and is not intended to detect influenza C. Performed By: #### C HANS BUTLER, AMRIT, ADIFF, CMP, GFR #### [id number] [place], [place] [address] RSV PCR (AO) Negative Normal Negative [facility] ([place]) Comment on above: Result Comment: Posi tive [...] virus (RSV) nucleic acid in nasopharyngeal swab (BRIDGE IRONWORKER HELPER) specimens from patients with signs and symptoms of respiratory infection in conjunction with clinical and laboratory findings. The test is intended for use as an aid in the differential diagnosis of influenza A virus, influenza B virus, and RSV in humans and is not intended to detect influenza C. Performed By: #### C HANS BUTLER, AMRIT, ADIFF, CMP, GFR #### [id number] [place], [place] [address] LABORATORYOrdered By: Moon Villa on 05-05-2022 FLUAV [...] Sign Date: 04/24/2022 12:37:27 PM Ordering Provider: ALESSIA KAUR [facility] ([place]) XR SPINE LUMBOSACRAL 2 OR 3 VIEWSon [...] Date: 04/24/2022 12:34:59 PM Ordering Provider: ALESSIA KAUR [facility] ([place]) XR Chest PA and Lateralon IMPRESSION: Stable chest. No acute cardiopulmonary process. Exercise Manager: PSCB Transcribe Date/Time: Jun 02 2021 5:27P Dictated by : LUCINA JHA MD This examination was interpreted and the report reviewed and electronically signed by: LUCINA JHA MD on Jun 02 2021 5:28PM [facility] [[email or web address] DIVISION OF RADIOLOGY * * *Final Report* [...] structures are intact DIVISION OF RADIOLOGY Provider, [facility] [place] - 06/02/2021 * * *Final Report* * [...] IMPRESSION: Stable chest. No acute cardiopulmonary process. Exercise Manager: PSCB Transcribe Date/Time: Jun 02 2021 5:27P Dictated by : LUCINA JHA MD This examination was interpreted and the report reviewed and electronically signed by: LUCINA JHA MD on Jun 02 2021 5:28PM [facility] Radiology Study observation (narrative) Karina Leigh XR Chest PA and LateralOrder ed By: Ccf Provider on 06-02-2021 [facility] Coronavirus 2019on 0 COVID 19 Result AIRPLANE DESIGNER Normal Negative for COVID19 (SARS CoV2) by PCR. [facility] Comment on above: Result Comment: Nega tive for This test was developed and its performance characteristics determined by [facility] [place]. This test has been authorized by FDA [...] developed and its performance characteristics determined by [facility] [place]. This test has been authorized by FDA [...] its performance characteristics determined by [facility] [place]. This test has been authorized by FDA [...] 2019. Coronavirus 2019on 0 COVID 19 Source AIRPLANE DESIGNER Normal [facility] Comment on above: Result Comment: Naso pharyngeal Corrected on 04/29 AT 0612: Previously reported as U Swab Corrected on 04/29 AT 0612: Previously reported as U COVID PCR, SCREENING CONGREG ATEon 11-08-2019 CORONAVIRUS 2019,PCR NOT DETECTED Normal Not Detected [facility] Comment on above: Result Comment: This assay [...] patient management decisions. Fact sheet for providers: https://www.fda.gov/media/381129/download Fact sheet for patients: https://www.fda.gov/media/820070/download This test has received FDA Emergency Use Authorization (EUA) and has been verified by [facility] ([facility]). This test is only authorized for the duration of time that circumstances exist to justify the authorization of the emergency use of in vitro diagnostic tests for the detection of SARS-CoV-2 virus and/or diagnosis of COVID-19 infection under section 564(b)(1) of the Act, 21 U.S.C. 360bbb-3(b)(1), unless the authorization is terminated or revoked sooner. [facility] ([facility]) is certified under CLIA-88 as qualified to perform high complexity testing. This tests analytical performance characteristics have been determined by [facility]. Testing is performed at [facility] is located at [address] [place] [address] (CLIA License #[id number], CAP #[id number]). Performed By: #### C VCLA #### [facility] [address] [place] [address] COVID PCR, SCREENING CONGREG ATEon 11-07-2019 Lab Specimen Source Nasal, Nasopharyngeal Normal [facility] Comment on above: Performed By: #### C VCLA #### [facility] [address] [place] [address] Vital Signs Date Time Vital Sign Value Performing Clinician Facility 11-03-2024 13:05-0400 Body height 170.18 cm Gideon CHOC Work Phone: [facility] 11-03-2024 13:05-0400 Body mass index (BMI) [Ratio] 34.6 kg/m2 Gideon Alford NP-C Work Phone: [facility] 11-03-2024 13:05-0400 Body temperature 97.6 [degF] Gideon Alford NP-C Work Phone: [facility] 11-03-2024 13:05-0400 Body weight 100.24 kg Gideon Alford AIRPLANE DESIGNER-C Work Phone: [facility] 11-03-2024 13:05-0400 Diastolic blood pressure 88 mm[Hg] Gideon Alford AIRPLANE DESIGNER-C Work Phone: [facility] 11-03-2024 13:05-0400 Heart rate 101 /min Gideon Alford AIRPLANE DESIGNER-C Work Phone: [facility] 11-03-2024 13:05-0400 Respiratory rate 16 /min Gideon Alford AIRPLANE DESIGNER-C Work Phone: [facility] 11-03-2024 13:05-0400 SaO2% (BldA) [Mass fraction] 100 % Gideon Alford AIRPLANE DESIGNER-C Work Phone: [facility] 11-03-2024 13:05-0400 Systolic blood pressure 147 mm[Hg] Gideon Alford AIRPLANE DESIGNER-C Work Phone: [facility] 03-24-2023 10:49-0500 Body temperature 97.88 [degF] ROSY DE JESUSER VINYL CUTTER-PREASSEMBLER PRINTED CIRCUIT BOARD [facility] 03-24-2023 10:49-0500 Diastolic Blood Pressure Non-Invasive 64 1 ROSY DE JESUSER VINYL CUTTER-PREASSEMBLER PRINTED CIRCUIT BOARD [facility] 03-24-2023 10:49-0500 Heart rate 74 /min 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 03-24-2023 10:49-0500 Reason For Taking VItal Signs 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 03-24-2023 10:49-0500 Respiratory rate 20 /min 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 03-24-2023 10:49-0500 Systolic Blood Pressure Non-Invasive 112 1 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 03-24-2023 06:53-0500 Body temperature 97.88 [degF] ROSY KAPPER VINYL CUTTER-PREASSEMBLER PRINTED CIRCUIT BOARD [facility] 03-24-2023 06:53-0500 Diastolic Blood Pressure Non-Invasive 108 1 ROSY KAPPER V[employer]YL C[employer]TER-PRE[employer]SEM[employer]ER [employer]ED [employer] [facility] 03-24-2023 06:53-0500 Heart rate 79 /min ROSY KAPPER [employer] [facility] 03-24-2023 06:53-0500 Respiratory rate 20 /min ROSY KAPPER [employer] C[employer]ER [employer] [facility] 03-24-2023 06:53-0500 Systolic Blood Pressure Non-Invasive 146 1 ROSY KAPPER [employer]YL C[employer]-PRE[employer]ER [employer] [facility] 03-24-2023 03:33-0500 Body temperature 97.7 [degF] ROSY KAPPER V[employer] C[employer] [facility] 03-24-2023 03:33-0500 Diastolic Blood Pressure Non-Invasive 65 1 ROSY KAPPER [employer] [facility] 03-24-2023 03:33-0500 Heart rate 76 /min ROSY KAPPER [employer] [facility] 03-24-2023 03:33-0500 Reason For Taking VItal Signs ROSY KAPPER [employer] [facility] 03-24-2023 03:33-0500 Respiratory rate 18 /min ROSY KAPPER [employer] [facility] 03-24-2023 03:33-0500 Systolic Blood Pressure Non-Invasive 111 1 ROSY KAPPER [employer] C[employer]ER [employer] [facility] 03-24-2023 02:27-0500 Heart rate 88 /min ROSY KAPPER [employer] C[employer]ER [employer] [facility] 03-23-2023 23:16-0500 Heart rate 80 /min ROSY KAPPER V[employer] C[employer]PRE[employer]ER [employer] [facility] 03-23-2023 23:16-0500 Reason For Taking VItal Signs ROSY KAPPER [employer] C[employer] [facility] 03-23-2023 17:48-0500 Heart rate 84 /min ROSY KAPPER [employer] C[employer] [facility] 03-23-2023 14:41-0500 Heart rate 82 /min ROSY KAPPER [employer] C[employer] [facility] 03-23-2023 11:49-0500 Heart rate 76 /min ROSY KAPPER [employer] C[employer]ER [employer] [facility] 03-22-2023 16:24-0500 Body weight 109.9 kg ROSY KAPPER [employer] [facility] 03-22-2023 16:11-0500 Body height 170.2 cm ROSY KAPPER [employer] C[employer]ER [employer] [facility] 03-22-2023 16:11-0500 Body weight 108.9 kg ROSY KAPPER [employer] C[employer]ER [employer] [facility] 03-22-2023 16:11-0500 Body weight 37.59 kg/m2 ROSY KAPPER [employer] C[employer]ER [employer] [facility] 03-22-2023 15:03-0500 Heart rate 82 /min ROSY KAPPER [employer] [facility] 03-02-2023 00:13-0400 Diastolic Blood Pressure Non-Invasive 86 1 BRITNEY MCLEOD MD [facility] 03-02-2023 00:13-0400 Heart rate 76 /min BRITNEY MCLEOD MD [facility] 03-02-2023 00:13-0400 Respiratory rate 20 /min BRITNEY MCLEOD MD [facility] 03-02-2023 00:13-0400 Systolic Blood Pressure Non-Invasive 134 1 BRITNEY MCLEOD MD [facility] 03-01-2023 22:44-0400 Diastolic Blood Pressure Non-Invasive 76 1 BRITNEY MCLEOD MD [facility] 03-01-2023 22:44-0400 Heart rate 80 /min BRITNEY MCLEOD MD [facility] 03-01-2023 22:44-0400 Respiratory rate 18 /min BRITNEY MCLEOD MD [facility] 03-01-2023 22:44-0400 Systolic Blood Pressure Non-Invasive 124 1 BRITNEY MCLEOD MD [facility] 03-01-2023 21:17-0400 Diastolic Blood Pressure Non-Invasive 74 1 BRITNEY MCLEOD MD [facility] 03-01-2023 21:17-0400 Heart rate 89 /min BRITNEY MCLEOD MD [facility] 03-01-2023 21:17-0400 Respiratory rate 18 /min BRITNEY MCLEOD MD [facility] 03-01-2023 21:17-0400 Systolic Blood Pressure Non-Invasive 115 1 BRITNEY MCLEOD MD [facility] 03-01-2023 19:18-0400 Body temperature 97.88 [degF] BRITNEY MCLEOD MD [facility] 03-01-2023 19:18-0400 Body weight 109.1 kg BRITNEY MCLEOD MD [facility] 08-25-2022 15:47-0400 Diastolic Blood Pressure Non-Invasive 79 1 DEL FROMMELT DO [facility] 08-25-2022 15:47-0400 Heart rate 81 /min DEL FROMMELT DO [facility] 08-25-2022 15:47-0400 Respiratory rate 16 /min DEL FROMMELT DO [facility] 08-25-2022 15:47-0400 Systolic Blood Pressure Non-Invasive 144 1 DEL FROMMELT DO [facility] 08-25-2022 13:45-0400 Body temperature 98.78 [degF] DEL FROMMELT DO [facility] 08-25-2022 13:45-0400 Body weight 110.8 kg DEL FROMMELT DO [facility] 08-25-2022 13:45-0400 Diastolic Blood Pressure Non-Invasive 97 1 DEL FROMMELT DO [facility] 08-25-2022 13:45-0400 Heart rate 99 /min DEL FROMMELT DO [facility] 08-25-2022 13:45-0400 Respiratory rate 18 /min DEL FROMMELT DO [facility] 08-25-2022 13:45-0400 Systolic Blood Pressure Non-Invasive 135 1 DEL ACOSTA DO [facility] 05-28-2022 09:49-0500 Body temperature 97.8 [degF] Dr. Geoffrey White Work Phone: [facility] 05-28-2022 09:49-0500 Diastolic blood pressure 92 mm[Hg] Dr. Geoffrey White Work Phone: [facility] 05-28-2022 09:49-0500 Heart rate 92 /min Dr. Geoffrey White Work Phone: [facility] 05-28-2022 09:49-0500 Respiratory rate 18 /min Dr. Geoffrey White Work Phone: [facility] 05-28-2022 09:49-0500 SaO2% (BldA) [Mass fraction] 97 % Dr. Geoffrey White Work Phone: [facility] 05-28-2022 09:49-0500 Systolic blood pressure 136 mm[Hg] Dr. Geoffrey White Work Phone: [facility] 05-12-2022 11:35-0500 Body weight 108.86 kg Savannah Valverde APRN.PREASSEMBLER [employer]ARD Work Phone: [facility] 05-12-2022 11:35-0500 Diastolic blood pressure 78 mm[Hg] Savannah Valverde APRN.PREASSEMBLER [employer] Work Phone: [facility] 05-12-2022 11:35-0500 Systolic blood pressure 118 mm[Hg] Savannah Valverde APRN.PREASSEMBLER [employer] Work Phone: [facility] 05-05-2022 20:48-0500 Blood Pressure Cuff Size DR KENDAL HERMAN DO [facility] 05-05-2022 20:48-[address] KENDAL HERMAN DO [facility] 05-05-2022 20:48-[address] KENDAL HERMAN DO [facility] 05-05-2022 20:48-0500 Body height 170.[address] KENDAL HERMAN DO [facility] 05-05-2022 20:48-0500 Body temperature 98.06 [degF] DR KENDAL HERMAN DO [facility] 05-05-2022 20:48-0500 Body weight 109.[address] KENDAL HERMAN DO [facility] 05-05-2022 20:48-0500 Diastolic Blood Pressure Non-Invasive [address] KENDAL HERMAN DO [facility] 05-05-2022 20:48-0500 Heart rate 115 /min DR KENDAL HERMAN DO [facility] 05-05-2022 20:48-0500 Respiratory rate 20 /min DR KENDAL HERMAN DO [facility] 05-05-2022 20:48-0500 Systolic Blood Pressure Non-Invasive [address] KENDAL HERMAN DO [facility] 04-24-2022 11:34-0500 Body temperature 98.6 [degF] ALESSIA KAUR MD [facility] 04-24-2022 11:34-0500 Diastolic Blood Pressure Non-Invasive 84 1 ALESSIA KAUR MD [facility] 04-24-2022 11:34-0500 Heart rate 98 /min ALESSIA KAUR MD [facility] 04-24-2022 11:34-0500 Respiratory rate 18 /min ALESSIA KAUR MD [facility] 04-24-2022 11:34-0500 Systolic Blood Pressure Non-Invasive 132 1 ALESSIA KAUR MD [facility] 11-10-2021 10:44-0400 Body height 170.2 cm Talia Older VINYL CUTTER.PRE[employer]SEM[employer]ER [employer] Work Phone: [facility] 11-10-2021 10:44-0400 Body weight 109.77 kg Talia Older VINYL CUTTER.[employer]SEM[employer]ER [employer] Work Phone: [facility] 09-10-2021 09:56-0400 Body weight 109.32 kg Savannah Valverde VINYL CUTTER.PRE[employer]SEM[employer]ER [employer] Work Phone: [facility] 09-10-2021 09:56-0400 Diastolic blood pressure 82 mm[Hg] Savannah Valverde VINYL CUTTER.PRE[employer]SEM[employer]ER [employer] Work Phone: [facility] 09-10-2021 09:56-0400 Systolic blood pressure 132 mm[Hg] Savannah Valverde VINYL CUTTER.[employer]SEM[employer]ER [employer] Work Phone: [facility] 07-16-2021 11:36-0500 Body temperature 98.6 [degF] Dr. Geoffrey White Work Phone: [facility] Work Phone: 07-16-2021 11:36-0500 Diastolic blood pressure 80 mm[Hg] Dr. Geoffrey White Work Phone: [facility] Work Phone: 07-16-2021 11:36-0500 Heart rate 83 /min Dr. Geoffrey White Work Phone: [facility] Work Phone: 07-16-2021 11:36-0500 Respiratory rate 18 /min Dr. Geoffrey White Work Phone: [facility] Work Phone: 07-16-2021 11:36-0500 SaO2% (BldA) [Mass fraction] 97 % Dr. Geoffrey White Work Phone: [facility] Work Phone: 07-16-2021 11:36-0500 Systolic blood pressure 130 mm[Hg] Dr. Geoffrey White Work Phone: [facility] Work Phone: 05-22-2021 20:12-0500 Body temperature 98.78 [degF] TRAV CORLEY MD [facility] 05-22-2021 20:12-0500 Diastolic blood pressure 95 mm[Hg] TRAV CORLEY MD [facility] 05-22-2021 20:12-0500 Heart rate 102 /min TRAV CORLEY MD [facility] 05-22-2021 20:12-0500 Respiratory rate 18 /min TRAV CORLEY MD [facility] 05-22-2021 20:12-0500 Systolic blood pressure 157 mm[Hg] TRAV CORLEY MD [facility] Encounters Encounter Date Encounter Type Care Provider Facility Start: 12-09-2024 [facility]ulatory [facility] Start: 11-03-2024 End: 11-03-2024 Emergency department patient visit Gideon SCOTT Work Phone: -Emergency Department Work Phone: Start: 05-03-2024 End: 05-04-2024 Emergency department patient visit John Echevarria Facility:[facility] Start: 03-22-2023 End: 03-24-2023 Evaluation and management of inpatient ROSY PHAN [employer] Facility:[facility] Start: 03-22-2023 End: 03-24-2023 Evaluation and management of inpatient ROSY PHAN [employer] [facility] Start: 03-01-2023 End: 03-02-2023 Emergency department patient visit BRITNEY MCLEOD MD Facility:[facility] Start: 03-01-2023 End: 03-02-2023 Emergency department patient visit BRITNEY MCLEOD MD [facility] Start: 09-11-2022 Telephone encounter Lupe Camargo ioce [employer]YL [employer]TER[employer] Work Phone: Endocrinology Comment on above: Results Start: 09-08-2022 End: 09-09-2022 ambulatory LUPE C CIOCE Facility:[facility] Start: 09-08-2022 End: 09-09-2022 ambulatory LUPE C CIOCE Facility:[facility] Start: 09-08-2022 End: 09-08-2022 Patient encounter procedure Lupe Sanchezoce [employer]YL C[employer]TER[employer] Work Phone: Endocrinology Comment on above: Poorly controlled ty pe 2 diabetes mellitus (HCC) (Primary Dx) Start: 08-25-2022 End: 08-25-2022 Emergency department patient visit DEL ACOSTA Facility:[facility] Start: 08-25-2022 End: 08-25-2022 Emergency department patient visit [facility] Start: 06-02-2022 ambulatory DOCTOR ON [facility] Start: 05-28-2022 End: 05-28-[address] Geoffrey White Work Phone: [facility] Work Phone: Start: 05-28-2022 End: 05-28-[address] Geoffrey White Work Phone: [facility]-Laboratory, Specimen Start: 05-28-2022 End: 05-28-[address] Geoffrey White Work Phone: [facility] Start: 05-12-2022 End: 05-12-2022 ambulatory GEOFFREY WHITE Facility:[facility] Start: 05-12-2022 End: 05-12-2022 Patient encounter procedure Savannah Valverde APRN.PREASSEMBLER [employer] Work Phone: OB/Gynecology Comment on above: Vaginal [...] department patient visit DR KENDAL HERMAN DO [facility] Start: 04-24-2022 End: 04-24-2022 Emergency department patient visit ALESSIA KAUR MD Facility:[facility] Start: 04-24-2022 End: 04-24-2022 Emergency department patient visit ALESSIA KAUR MD [facility] Start: 03-19-2022 End: 03-19-2022 ambulatory Sue Mg PhD Work Phone: Endocrinology [facility] Comment on above: NO SHOW (Primary Dx) Start: 03-19-2022 End: 03-19-2022 Telemedicine consultation with patient Sue Mg PhD Work Phone: [facility] Start: 11-10-2021 End: 11-10-2021 ambulatory Talia Perez APRN.PREASSEMBLER [employer] Work Phone: Internal Medicine [place] Comment on above: Obesity, Class II, B AL 35-39.9 (Primary Dx); Type 2 diabetes mellitus without complication, without long-term current use of insulin (HCC) Start: 11-10-2021 End: 11-10-2021 Telemedicine consultation with patient Talia Perez RACHAEL Work Phone[facility] Start: 10-26-2021 End: 10-26-2021 Patient encounter procedure Deedee Cotton PA-C Work Phone: Orthopaedics Comment on above: Medial epicondylitis of left elbow (Primary Dx); Family history of rheumatism Start: 09-10-2021 End: 09-10-2021 Patient encounter procedure Savannah Valverde APRN.PREASSEMBLER [employer] Work Phone: OB/Gynecology Comment on above: Vaginal discharge (P rimary Dx); Vaginal odor; Screen for STD (sexually transmitted disease); Menorrhagia with regular cycle; Dysmenorrhea Start: 07-16-2021 End: 07-16-[address] Geoffrey White Work Phone: [facility] Start: 06-02-2021 End: 06-02-2021 Subsequent hospital visit by physician [facility] Work Phone: Radiology Comment on above: COVID-19 [U07.1] Start: 05-22-2021 End: 05-22-2021 Emergency department patient visit TRAV CORLEY MD [facility] Procedures Date Procedure Procedure Detail Performing Clinician Start: 05-12-2022 BACTERIAL VAGINOSIS AMPLIFICATION Savannah Valverde APRN.CNP Work Phone: Start: 05-12-2022 Iadna chlamydia trac homatis amplified probe tq Savannah Valverde APRN.PREASSEMBLER [employer] Work Phone: Start: 07-16-2021 Plain chest X-ray Dr. Raman White Work Phone: Start: 06-02-2021 Radiologic exam ches t 2 views Belgica Dangelo APRN.PREASSEMBLER [employer] Work Phone: Start: 02-04-2021 Adult depression scr eening assessment Savannah Valverde VINYL CUTTER.PREASSEMBLER [employer] Work Phone: Deliveries by cinthya mccann (finding) TRAV CORLEY MD Comment on above: x 3 H/O: tubal ligation ROSY CUI PER [employer]YL C[employer]TER-PRE[employer]SEM[employer]ER [employer] Urine culture Dr. Geoffrey enriquez Work Phone: Plan of Treatment Date Care Activity Detail Author Start: 03-03-2026 HPV TESTING HPV TESTING [facility] Start: 03-03-2026 PAP TESTING PAP TESTING [facility] Start: 03-03-2026 Screening for malign ant neoplasm of cervix Cervical Cancer Screening [facility] Start: 11-03-2024 [facility] Start: 01-15-2024 Covid-19 Vaccine ( season) Covid-19 Vaccine ( season) [facility] Start: 01-15-2024 Influenza vaccination Influenza Vacc ine (#1) [facility] Start: 09-09-2023 Hepatitis B screening URINE ALBUMIN:CREATININE RATIO [facility] Start: 09-09-2023 Hepatitis B surface antibody level LDL CHOLESTEROL [facility] Start: 02-13-2023 End: 04-15-2023 ALBUMIN/CREAT RATIO RND UR ALBUMIN/CREAT RATIO RND UR Lab Routine Poorly controlled type 2 diabetes mellitus (HCC) Expected: 02/13/2023, Expires: 04/15/2023 [facility] Work Phone: Comment on above: Expected: 02/13/2023 , Expires: 04/15/2023 Start: 02-13-2023 End: 04-15-2023 Comprehensive metabolic 2000 panel - Serum or Plasma COMP METABOLIC PANEL Lab Routine Poorly controlled type 2 diabetes mellitus (HCC) Expected: 02/13/2023, Expires: 04/15/2023 [facility] Work Phone: Comment on above: Expected: 02/13/2023 , Expires: 04/15/2023 Start: 02-13-2023 End: 04-15-2023 Hemoglobin A1c in Blood HGB A1C Lab Routine Poorly controlled type 2 diabetes mellitus (HCC) Expected: 02/13/2023, Expires: 04/15/2023 [facility] Work Phone: Comment on above: Expected: 02/13/2023 , Expires: 04/15/2023 Start: 02-13-2023 End: 04-15-2023 LIPID PANEL, NONFASTING LIPID PANEL, NONFASTING Lab Routine Poorly controlled type 2 diabetes mellitus (HCC) Expected: 02/13/2023, Expires: 04/15/2023 [facility] Work Phone: Comment on above: Expected: 02/13/2023 , Expires: 04/15/2023 Start: 01-14-2023 Influenza vaccination INFLUENZ A (Season Ended) [facility] Start: 12-08-2022 Hemoglobin A1c measurement HbA1C [facility] Start: 12-08-2022 Hemoglobin A1c/Hemoglobin.total in Blood HBA1C [facility] Start: 11-10-2022 ANNUAL PCP TEAM ELECTRICAL CONTINUITY TESTER JEANNE DISEASE VISIT ANNUAL PCP TEAM CHRONIC DISEASE VISIT [facility] Start: 09-08-2022 End: 11-08-2022 25-hydroxyvitamin D3 [Mass/volume] in Serum or Plasma [facility] Work Phone: Comment on above: Expected: 09/08/2022 , Expires: 11/08/2022 Start: 09-08-2022 End: 11-08-2022 ALBUMIN/CREAT RATIO RND UR [facility] Work Phone: Comment on above: Expected: 09/08/2022 , Expires: 11/08/2022 Start: 09-08-2022 End: 11-08-2022 Glutamate decarboxylase 65 Ab [Units/volume] in Serum [facility] Work Phone: Comment on above: Expected: 09/08/2022 , Expires: 11/08/2022 Start: 09-08-2022 End: 11-08-2022 Pancreatic islet cell Ab [Titer] in Serum [facility] Work Phone: Comment on above: Expected: 09/08/2022 , Expires: 11/08/2022 Start: 09-08-2022 End: 11-08-2022 THYROID PEROXIDASE ANTIBODY BLOOD [facility] Work Phone: Comment on above: Expected: 09/08/2022 , Expires: 11/08/2022 Start: 05-16-2022 DEPRESSION ASSESSMENT DEPRESSION ASS ESSMENT [facility] Start: 03-18-2022 ANNUAL PCP TEAM ELECTRICAL CONTINUITY TESTER JEANNE DISEASE VISIT ANNUAL PCP TEAM CHRONIC DISEASE VISIT [facility] Start: 03-18-2022 COVID-19 VACCINE (#1) COVID-19 VACCI NE (#1) [facility] Comment on above: Postponed from 11/19 (Declined at this time) Start: 03-18-2022 COVID-19 VACCINE (1) COVID-19 VACCIN E (1) [facility] Comment on above: Postponed from 11/19 (Declined at this time) Start: 03-18-2022 ONE PNEUMOVAX PRIOR TO AGE 65 ONE PNEUMOVAX PRIOR TO AGE 65 [facility] Comment on above: Postponed from 11/19 (Declined at this time) Start: 03-18-2022 PNEUMOCOCCAL (1 - PCV) PNEUMOCOCCAL (1 - PCV) [facility] Comment on above: Postponed from 11/19 (Declined at this time) Start: 03-18-2022 Urine microalbumin profile DTAP,TDAP,TD (1 - Tdap) [facility] Comment on above: Postponed from 11/19 (Declined at this time) Start: 02-04-2022 Adult depression screening assessment DEPRESSION SCREENING [facility] Start: 02-03-2022 Hepatitis B surface antibody level LDL CHOLESTEROL [facility] Start: 01-14-2022 Influenza vaccination C [facility] Start: 10-26-2021 End: 12-26-2021 C reactive protein [Mass/volume] in Serum or Plasma C-REACTIVE PROTEIN (CRP) Lab Routine Family history of rheumatism Expected: 10/26/2021, Expires: 12/26/2021 [facility] Work Phone: Comment on above: Expected: 10/26/2021 , Expires: 12/26/2021 Start: 10-26-2021 End: 12-26-2021 Erythrocyte sedimentation rate SED RATE WESTERGREN Lab Routine Family history of rheumatism Expected: 10/26/2021, Expires: 12/26/2021 [facility] Work Phone: Comment on above: Expected: 10/26/2021 , Expires: 12/26/2021 Start: 10-26-2021 End: 12-26-2021 Nuclear Ab [Presence] in Serum by Immunoassay LUCIANA BLOOD Lab Routine Family history of rheumatism Expected: 10/26/2021, Expires: 12/26/2021 [facility] Work Phone: Comment on above: Expected: 10/26/2021 , Expires: 12/26/2021 Start: 10-26-2021 End: 12-26-2021 Rheumatoid factor [Units/volume] in Serum or Plasma RHEUMATOID FACTOR BL Lab Routine Family history of rheumatism Expected: 10/26/2021, Expires: 12/26/2021 [facility] Work Phone: Comment on above: Expected: 10/26/2021 , Expires: 12/26/2021 Start: 08-03-2021 Hemoglobin A1c/Hemoglobin.total in Blood HBA1C [facility] Start: 05-16-2021 DEPRESSION ASSESSMENT DEPRESSION ASS ESSMENT [facility] Start: 07-10-2015 Glaucoma screening Dilated Retinal E xam [facility] Start: 07-10-2015 Hepatitis C antibody , confirmatory test DILATED RETINAL EXAM [facility] Start: 2005 HEPATITIS B (1 of 3 - Risk 3-dose series) HEPATITIS B (1 of 3 - Risk 3-dose series) [facility] Start: 2005 Hepatitis B Vaccine (1 of 3 - 19+ 3-dose series) Hepatitis B Vaccine (1 of 3 - 19+ 3-dose series) [facility] Start: 2005 Urine microalbumin profile [facility] Start: 2004 Anxiety Screening Anxiety Screening [facility] Start: 2004 Depression Screening Depression Scre ening [facility] Start: 2004 HEPATITIS C SCREENING HEPATITIS C [facility] Start: 2004 Hepatitis C screening Hepatitis C [facility] Start: 1996 3 comp foot exam completed DIABETIC FOOT EXAM [facility] Start: 1996 Diabetic foot examination Diabetic Foot Exam [facility] Start: 1996 Hepatitis B screening URINE ALBUMIN:CREATININE RATIO [facility] Start: 1992 PNEUMOCOCCAL (1 - PCV) PNEUMOCOCCAL (1 - PCV) [facility] Start: 1992 Pneumococcal vaccination Pneum ococcal Vaccine (1 of 2 - PCV) [facility] Start: 05-22-1987 COVID-19 VACCINE (#1) COVID-19 VACCI NE (#1) [facility] Start: 1986 HEPATITIS B (1 of 3 - 3-dose series) HEPATITIS B (1 of 3 - 3-dose series) [facility] Chlamydia trachomatis+Neisseria gonorrhoeae DNA [Presence] in Unspecified specimen by YURIY with probe detection GC/CHLAMYDIA DNA DET Lab Routine Screen for STD (sexually transmitted disease) Vaginal discharge Vaginal odor 09/10/2021 10:26 AM EDT [facility] Work Phone: Insertion intrauteri ne device iud INSERT INTRAUTERINE DEVICE Procedures Routine Menorrhagia with regular cycle Dysmenorrhea Ordered: 09/10/2021 [facility] Work Phone: Comment on above: Ordered: 09/10/2021 Microscopic observat ion [Identifier] in Vaginal fluid by Gram stain BACT/BAILEY VAG GRAM STAIN Microbiology Routine Vaginal odor Vaginal discharge 09/10/2021 10:26 AM EDT [facility] Work Phone: Patient Education Cellulitis [facility] Work Phone: Patient referral [facility] Work Phone: Trichomonas vaginali s Ag [Presence] in Genital specimen by Immunoassay TRICHOMONAS PREP/ANTIGEN Microbiology Routine Screen for STD (sexually transmitted disease) Vaginal discharge Vaginal odor 09/10/2021 10:26 AM EDT [facility] Work Phone: Urinalysis complete panel - Urine [facility] Immunizations Immunization Date Immunization Notes Care Provider Kenisha koroma 03-23-2023 influenza, injectabl e, quadrivalent, preservative free 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 Payers Date Payer Category Payer Unknown [id number] 2024 Unknown [id number] 2023 Self-pay [id number] 2022 Unknown [id number] 2014 Medicaid [employer]ICA[employer] [id number] 2014-Present [phone] [address] [place] [address] Medicaid [id number] 2014 Medicaid [id number] 2014 Unknown [id number] 1986 Unknown [id number] 1986 Unknown [id number] 1986 Unknown [id number] 1986 Unknown [id number] 1986 Unknown [id number] Unknown [id number] Unknown [id number] Unknown [id number] Social History Date Type Detail Facility Start: 08-27-2018 Heavy tobacco smoker (finding) [facility] Start: 1985 [facility] Start: 07-16-2021 End: 05-28-2022 Tobacco smoking status NHIS Unknown if ever smoked [facility] Start: 03-30-2019 End: 11-03-2024 Tobacco smoking status NHIS Smokes tobacco daily [facility] Work Phone: Start: 08-18-2003 End: 08-17-2014 History of tobacco use Cigarette Smoker [facility] Work Phone: Start: 03-30-2019 End: 04-20-2020 Cigarettes smoked current (pack per day) - Reported 1 [facility] Start: 03-30-2019 End: 03-03-2021 Tobacco use and exposure Smokeless tobacco non-user [facility] Work Phone: Start: 06-02-2021 End: 09-10-2021 Alcohol intake Current drinker of alcohol (finding) [facility] Start: 02-04-2021 History SDOH Alcohol Frequency 3 [facility] Start: 02-04-2021 End: 03-18-2021 History SDOH Alcohol Std Drinks 2 [facility] Start: 03-30-2019 History SDOH Alcohol Comment socially [facility] Start: 02-04-2021 End: 03-18-2021 History SDOH Social Connections Cheondoism 1 [facility] Start: 02-04-2021 History SDOH Social Connections Living 7 [facility] Start: 02-04-2021 History SDOH Stress 5 [facility] Start: 02-04-2021 Education 14 [facility] Start: 1985 Sex Assigned At Not on file [facility] Start: 10-16-2021 End: 10-26-2021 Exposure to SARS-CoV-2 (event) Not sure [facility] Start: 04-20-2020 End: 02-04-2021 Social connection and isolation panel [facility] Do you belong to any clubs or organizations such as anabaptism groups, unions, fraternal or athletic groups, or school groups? No [facility] Are you now , , , , never or living with a partner? Never [facility] How often to you hav e a drink containing alcohol? 2-4 times a month [facility] How many standard dr inks containing alcohol do you have on a typical day? 3 or 4 [facility] How often do you hav e 6 or more drinks on 1 occasion? Less than monthly [facility] How hard is it for y ou to pay for the very basics like food, housing, medical care, and heating Somewhat hard [facility] Adult Depression Scr eening Assessment 0 [facility] Do you feel stress - tense, restless, nervous, or anxious, or unable to sleep at night because your mind is troubled all the time - these days [OSQ] Very much [facility] (I/We) worried robert er (my/our) food would run out before (I/we) got money to buy more. Never true [facility] Start: 05-03-2021 End: 06-02-2021 Exposure to SARS-CoV-2 (event) Yes [facility] Medical Equipment Procedure Code Equipment Code Equipment [...] Nurse Candice sharma q2hrs Performed Other: 7AM-115PM [facility] 03-24-2023 Functional Status Room check performed [facility] 03-23-2023 Functional Status [facility] 03-23-2023 Functional Status [facility] 03-23-2023 Functional Status [facility] 03-23-2023 Functional Status [facility] 03-23-2023 Functional Status [facility] 03-23-2023 Functional Status Driving, 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 03-23-2023 [facility] Status Shower Independent [facility] 03-22-2023 Functional Status None Abdirashid Zavala [facility] 03-02-2023 Functional Status [facility] Functional Status Standard Safet y ID band on, Call device within reach, Bed in low position, Wheels locked, Upper/Half-Length side-rails up, Bedside Cart Locked, Safety level maintained [facility] 08-25-2022 Functional Status Ambulation in [facility] 08-25-2022 Functional Status Standard Safet y ID band on, Call device within reach, Bed in low position, Wheels locked, Phone within reach [facility] 05-05-2022 Functional Status Independent [facility] 04-24-2022 Functional Status Standard Safet y ID band on, Call device within reach, Bed in low position, Wheels locked, Upper/Half-Length side-rails up, Phone within reach, personal items within reach, Assistive devices within reach, Toileting device within reach, Bedside Cart Locked, Safety level maintained [facility] Mental Status Date Assessment Result Facility 03-24-2023 Mental Status Oriented x 4 [facility] 03-23-2023 Mental Status [facility] 03-23-2023 Mental Status [facility] 03-02-2023 Mental Status Orientation Oriented x 4 [facility] 03-01-2023 Mental Status [facility] 08-25-2022 Mental Status Orientation Oriented x 4 [facility] 08-25-2022 Mental Status [facility] Mental Status Oriented x 4 [facility] 04-24-2022 Mental Status Orientation Oriented x 4 [facility] Clinical Notes 2014 to 04-13-2023 Note Date & Type Note Facility 04-13-2023 Note Patient Outreach (IN TMWS) MONIQUE ACEVEDO ([id number]) 1985 F Date Time Provider Department 04/13/23 GEOFFREY WHITE During your visit today, we recorded the following information about you: Luz Elena Guillaume 04/13/2023 11:26 AM Signed Phoned patient and left message for patient to call office back and schedule an appointment for follow up DM and hemA1c. Luz Elena Giullaume LPN Allergies As of Date: 04/13/2023 (No [...] Inject 20 units once daily - Insulin Birchleaf, Disposable, (PEN NEEDLE) 32 gauge x 5 [...] disorder [F17.200] 07/21/2005 OPEN WOUND TRUNK NEC-COMPL [[id number]] 07/23/2005 09/02/2005 Migraine without aura, without mention [...] Status:Closed by LUZ ELENA GUILLAUME on 04/13/23 [facility] 04-13-2023 Note HNO ID: [id number] Author: Luz Elena Guillaume Service: ? Author Type: ? Type: Progress Notes Filed: 04/13/2023 11:26 AM Note Text: Phoned patient and left message for patient to call office back and schedule an appointment for follow up DM and hemA1c. Luz Elena Guillaume [facility] 03-24-2023 Note Discharge Instructions Thank you for allowing [facility] to assist you with your healthcare needs. The following is important discharge information regarding your hospital visit. Your Care Team [facility] Your Diagnosis Bipolar 1 disorder Diabetes Flank pain-right Pyelonephritis What to do next Instructions From Your Doctor You are admitted for pyelonephritis. You are being discharged with a prescription for Cipro 500 mg twice daily for 7 days. Please take all of these doses. You are being given an order for pelvic floor therapy. You can call [facility] therapy department to schedule this. Your diabetes is poorly controlled. Your hemoglobin A1c is 10.4. Your Lantus will be increased to 25 units at bedtime. Tonight you will take Lantus 15 units. Tomorrow, start Lantus 25 units at bedtime. We will also take Humalog 8 units before each meal 3 times per day. Follow Up Appointments Follow Up with GIDEON ALFORD When Where: [address] [place] [address] [phone] The Following Activity and Diet Have Been [...] 12 hours Duration: 7 Days Pickup at [facility] #[id number] start tonight Changed insulin glargine (Lantus Solostar Pen 100 units/ mL 3 mL Pen) 25 unit(s) Subcutaneous Daily at bedtime Duration: 30 Days Pickup at [facility] #[id number] 03/24/23 10:19am Changed insulin lispro (HumaLOG) (HumaLOG Jose KwikPen 100 units/ mL injectable PEN) 8 unit(s) Subcutaneous Three (3) times a day Duration: 30 Days Pickup at [facility] #[id number] 03/24/23 12:18pm Unchanged atorvastatin (atorvastatin 20 mg [...] 1 not given in hospital Pharmacy Information [facility] #[id number]: [address] [place], [place] [id number] [phone] What How Much When Comments Stop Taking [...] may report side effects to FDA at 8-951-GOQ-1127. What other drugs will affect insulin glargine? Many drugs can affect your blood sugar and may also affect insulin glargine. This includes prescription and pmbf-rbo-bwpkwrt medicines, vitamins, and herbal products. Tell your [...] to ensure that the information provided by [employer]Now. ('Multum') is accurate, up-to-date, and complete, but no guarantee is made to that effect. Drug information contained herein may be time sensitive. [employer] information has been compiled for use by healthcare practitioners and consumers in the [place] and therefore [employer] does not warrant that uses outside of the [place] are appropriate, unless specifically indicated otherwise. [employer]'s drug information does not endorse drugs, diagnose patients or recommend therapy. [employer] drug information is an informational resource designed [...] effective or appropriate for any given patient. [facility] does not assume any responsibility for any aspect of healthcare administered with the aid of information [facility] provides. The information contained herein is not intended to cover all possible uses, directions, precautions, warnings, drug interactions, allergic reactions, or adverse effects. If you have questions about the drugs you are taking, check with your doctor, nurse or pharmacist. Copyright 7778-6286 [facility] Biom'Up. Version: 17.01. Revision Date: 12/24/2022. insulin lispro (IN gisela joseph OBBY pro) Admelog, HumaLOG, Lyumjev What is the [...] may report side effects to FDA at 5-896-CPT-0028. What other drugs will affect insulin lispro? [...] or stop using. This includes prescription and bajd-wpt-rpzcmwh medicines, vitamins, and herbal products. Where can I get more information? Your pharmacist can provide more information about insulin lispro. Remember, keep this and all other medicines out of the reach of children, never share your medicines with others, and use this medication only for the indication prescribed. Every effort has been made to ensure that the information provided by [employer]Now. ('Multum') is accurate, up-to-date, and complete, but no guarantee is made to that effect. Drug information contained herein may be time sensitive. [employer] information has been compiled for use by healthcare practitioners and consumers in the [place] and therefore [employer] does not warrant that uses outside of the [place] are appropriate, unless specifically indicated otherwise. [employer] drug information does not endorse drugs, diagnose patients or recommend therapy. [employer] drug information is an informational resource designed [...] effective or appropriate for any given patient. [employer] does not assume any responsibility for any aspect of healthcare administered with the aid of information [facility] provides. The information contained herein is not intended to cover all possible uses, directions, precautions, warnings, drug interactions, allergic reactions, or adverse effects. If you have questions about the drugs you are taking, check with your doctor, nurse or pharmacist. Copyright 1274-4319 [facility] Biom'Up. Version: 9.01. Revision Date: 11/21/2019. ciprofloxacin (oral) [...] What is ciprofloxacin? Ciprofloxacin is a fluoroquinolone (duwj-d-YPMK-o-lone) antibiotic, it is used to treat different [...] may report side effects to FDA at 8-013-PAI-5457. What other drugs will affect ciprofloxacin? Some [...] drugs may affect ciprofloxacin, including prescription and inti-kej-wgqjurd medicines, vitamins, and herbal products. Not all [...] to ensure that the information provided by [employer]Now. ('Multum') is accurate, up-to-date, and complete, but no guarantee is made to that effect. Drug information contained herein may be time sensitive. [employer] information has been compiled for use by healthcare practitioners and consumers in the [place] and therefore [employer] does not warrant that uses outside of the [place] are appropriate, unless specifically indicated otherwise. [employer] drug information does not endorse drugs, diagnose patients or recommend therapy. [employer] drug information is an informational resource designed [...] effective or appropriate for any given patient. [employer] does not assume any responsibility for any aspect of healthcare administered with the aid of information [employer] provides. The information contained herein is not intended to cover all possible uses, directions, precautions, warnings, drug interactions, allergic reactions, or adverse effects. If you have questions about the drugs you are taking, check with your doctor, nurse or pharmacist. Copyright 5218-0335 [employer]Now. Version: 23.01. Revision Date: 11/28/2019. insulin lispro [...] injected the medicine.< (more content not included)... [facility] 03-23-2023 Note . MICRO - Microbiology [...] Locations *1: This test was performed at: [facility], [address] [place] [address], [address] , [facility] ([place]) 03-23-2023 Note Date of Service 03/23/2023 Chief [...] to obtain her ED records from [facility], however, a urine culture was not done [...] pain medication. Records from ED visit at [facility] obtained but no urine culture done. Patient [...] by ROSY PHAN on 03/23/2023 02:[address] [facility] 03-22-2023 Note Date of Service 03/22/2023 Chief Complaint pt states she has been having UTI symptoms for almost 2 weeks, blood in urine/flank pain.Seen at [facility] last Tuesday and DX with UTI and given IV antibiotics and d/c home with 3 days of oral antibiotics. Pt states she is not any better. History of Present Illness Patient is a 37-year-old female, who follows with Dr. Axel Alfrod with a past medical history significant for type 2 diabetes and Bipolar disorder, presents to [facility] emergency department with the chief complaint of UTI symptoms for about 2 weeks. Patient reports that she has had dysuria for about 2 weeks now. She was seen at [facility] emergency department one week ago and diagnosed [...] 24 hours. We will request records from [facility] specifically results of urine culture. We will [...] medication. Request records from ED visit at [facility]. Repeat CBC and BMP in the am. [...] by ROSY PHAN on 03/22/2023 07:[address] [facility] 03-22-2023 Hospital Discharge instructions Patient Education [...] another medicine was prescribed, you can use zoca-ggv-onwirre medicines for pain, fever, or discomfort. If [...] when crying, sunken eyes, or dry mouth [phone] The agri.capital. [address] [place] [address]. All rights reserved. This information is not intended as a substitute for professional medical care. Always follow your healthcare professional's instructions. Follow Up Care 03/22/2023 11:08:43 [facility] Address: [address] [place] [address] [place] [phone] When: Unknown [facility] 03-22-2023 Evaluation + Plan note Extrac marci from: Title:History and Physical Author:ROSY PHAN APRN-[facility] Date:03/22/23 1. Pyelonephritis Acute, ongoing for 2 weeks accompanied by dysuria and right flank pain, had been on Keflex for the past week without any improvement in symptoms. Patient administered Ceftriaxone 1 gram IV in the ED - will continue on admission. Urine and blood cultures are pending. Continue IV and PO pain medication. Request records from ED visit at [facility]. Repeat CBC and BMP in the am. [...] collaborating with physician, and documenting in chart. [facility] 11-07-2023 Note ORIGINAL EXAMINATION: CT OF [...] Sign Date: 03/22/2023 1:06:24 PM Ordering Provider: [facility]11-06-2023 Note . MICRO - Microbiology PROCEDURE: Blood [...] Locations *1: This test was performed at: [address], [address] [place], [place] [address]-21-2023 Note. MICRO - Microbiology PROCEDURE: Blood Culture [...] Locations *1: This test was performed at: [address], [address] [place], [place] [address]-02-2023 Hospital Discharge instructions Patient Education 03/01/2023 23:54:06 [...] Carry a medical ID card or a [address]. Or wear a medical alert bracelet [...] keep having episodes of high blood sugar. 3290-7103 [employer]. [address] [place] [address]. All rights reserved. This information is not [...] for diarrhea, vomiting, or a high fever. 2273-8935 The [employer]. [address] [place] [address]. All rights reserved. This information is not intended as a substitute for professional medical care. Always follow yourhealthcare professional's instructions. Follow Up Care 03/01/2023 19:16:32 With:AXEL ALFORD DO Address: [facility] [address] [address] [place], [place] [phone] [phone] When:2-4 days [facility] Abdirashidawa Lyman 10-18-2023 Note Discharge Instructions Thank you for allowing [facility] to assist you with your healthcare needs. [...] DO When Within 2-4 days Where: [address] [place] [address] [phone] Allergies NKA Medications Please ask your primary [...] keep having episodes of high blood sugar. 4454-2376 The [employer]. [address] [place] [address], [place] [address]. All rights reserved. This information is not [...] for diarrhea, vomiting, or a high fever. 5871-5906 The [employer]. [address] [place] [address]. All rights reserved. This information is not intended as a substitute for professional medical care. Always follow yourhealthcare professional's instructions. Additional Information VACCINATE! IT SAVES LIVES! Members of the community who have not yet received the COVID-19 vaccine and would like to receive it can visit one of [facility] vaccine clinics. There are many vaccine clinic locations within the [facility]. For locations and available times, please visit www.gettheshot.coronavirus.[place].gov/. It is important to note that some COVID mobile vaccine clinics are held outdoors and may be canceled in rainy or stormy conditions. To learn more about pediatric vaccinations (ages 5-11), we invite you to visit the [facility] webpage. https://www.[facility].org/pages/9860-Autxg-Yxcfowmqrhg-Osdjeivvnd-Wfsdw-Rsp stions.htmlTo learn more about the COVID-19 vaccine, we invite you to visit the CDC website for a list of frequently asked questions. https://www.cdc.gov/coronavirus/2019-ncov/vaccines/faq.html [facility] Patient Portal Access Instructions: Stay connected with your healthcare team and access your personal medical information anytime with the [facility] Patient Portal. If you would like a full copy of your medical records please contact the [facility] Medical Records Department Tuesday through Tuesday between 8a.m. and 4:30p.m. Please follow the directions below to access the portal: 1.Access the email account you provided upon registration to the [facility].2.Look for an invitation email from [facility].3.Open the email and access the invitation link: Accept Invitation to [facility].Fill in the required ruelas to create your account. Sign into www.[employer] with your username and password that you [...] you will allow to register on the [facility] Patient Portal for access to your information. You can also access the [facility] Patient Portal on the [employer]. Simply click on Health Records under [place] and then click on the [employer] logo. HOW TO SAFELY DISPOSE OF PRESCRIPTION [...] Call your local pharmacy or go to [email or web address]/[email or web address] to find one close to you.3.Make use of household items: Use cat litter or old coffee grounds to dispose medications if other options arenot available. Mix your drugs with these household products, seal them in an airtight container andthrow it into the garbage. Call [facility]: [phone] to be sure your drugs can be [...] aware that I should contact my doctor. Patient/Farm Management Adviser Signature: Date/Time: Relationship to Patient: Witness Name/Signature: Date/Time: [facility]10-17-2023 Note ORIGINAL EXAMINATION: CT OF THE [...] Date: 03/01/2023 8:58:57 PM Ordering Provider: [facility] Note Sinus rhythm Probable left atrial enlargement Electronic Signature: BRITNEY MCLEOD MD 03/01/2023 20:55:[address] [place] [address] 04-29-2023 Miscellaneous Notes* Telephone Encounter - Lupe Gutierrez APRN.CNP - 09/11/2022 2:00 PM EDT Please call the patient. I reviewed her labs. Her antibodies are negative she is confirmed TYPE 2 diabetes. This is treated with lifestyle modifications - weight loss, healthy diet, medications. Her cholesterol panel is also elevated. STRONGLY recommend she sees the [facility] Director Life for meal planning. Her A1C is elevated, [...] phone pharmacy and notify patient. Lupe Gutierrez, JONG.PREASSEMBLER PRINTED CIRCUIT BOARD Component Latest Ref Rng & Units 09/08/2022 [...] - 3.85 ng/mL 2.90 [facility]23 NoteHNO ID: [id number] Author: Lupe Gutierrez APRN.CNP Service: ? Author [...] 2016 Previously patient of BC RUCKER MD, [facility] for gestational DM, last visit 09/12/2014 Initially [...] OF SYSTEMS - POSITIVES (more content not included)...[facility]04-26-2023 Instructions* Patient Instructions* Lupe Gutierrez APRN.CNP - [...] glucose does not improve. [facility]23 History of Present illness Narrative* Lupe Gutierrez [...] 2016 Previously patient of BC RUCKER MD, [facility] for gestational DM, last visit 09/12/2014 Initially [...] water, occ diet pop and coffee from [employer] Exercise: active at work, when at home [...] A1C Lupe Gutierrez CNP [facility] Hospital Discharge instructions Patient Education 08/25/2022 15:06:49 [...] if you keep having episodes of hyperglycemia. 2906-2567 The agri.capital. [address] [place] [address], [place] [address]. All rights reserved. This information is not intended as a substitute for professional medical care. Always follow yourhealthcare professional's instructions. Follow Up Care 08/25/2022 13:43:48 With:AXEL ALFORD DO Address: [address] [address] [place] [address] [phone] When:2-[address] [facility] 04-12-2023 Note Discharge Instructions Thank you for allowing [facility] to assist you with your healthcare needs. The following is importantdischarge information regarding your hospital visit. Diagnosis from Today's Visit Hyperglycemia Hyperglycemia What to Do Next Instructions from Your Care Team No qualifying data available. Post Acute Orders No qualifying data available. You Need to Schedule the Following Appointments Follow Up with AXEL ALFORD DO When Within 2-4 days Where: [address] [address] [place] [phone] Allergies NKA Medications Please ask your primary [...] Medication Leaflets insulin glargine (IN pollard joseph hartmann) Basaglar KwikPen, Lantus, Lantus Solostar Pen, Semglee, [...] may report side effects to FDA at 1-042-MZI-3592. What other drugs will affect insulin glargine? Many drugs can affect your blood sugar and may also affect insulin glargine. This includes prescription and jofo-ntp-aghwcbn medicines, vitamins, and herbal products. Tell your [...] to ensure that the information provided by LabNow. ('Multum') is accurate, up-to-date, and complete, but no guarantee is made to that effect. Drug information contained herein may be time sensitive. Ringadoc information has been compiled for use by healthcare practitioners and consumers in the [place] and therefore Ringadoc does not warrant that uses outside of the [place] are appropriate, unless specifically indicated otherwise. [employer] drug information does not endorse drugs, diagnose patients or recommend therapy. [employer] drug information isan informational resource designed to [...] effective or appropriate for any given patient. Ringadoc does not assume any responsibility for any aspect of healthcare administered with the aid of information Ringadoc provides. The information contained herein is not intended to cover all possible uses, directions, precautions, warnings, drug interactions, allergic reactions, or adverse effects. If you have questions about the drugs you are taking, check with your doctor, nurse or pharmacist. Copyright 2831-3916 LabNow. Version: 15.. Revision Date: 07/03/2021. insulin lispro (IN gisela [...] needle attached) at room temperature and use cinlhy48 days. Use a needle and syringe only [...] may report side effects to FDA at 9-492-TVA-8171. What other drugs will affect insulin lispro? [...] or stop using. This includes prescription and fwia-rux-pnwdqjw medicines, vitamins, and herbal products. Where can I get more information? Your pharmacist can provide more information about insulin lispro. Remember, keep this and all other medicines out of the reach of children, never share your medicines with others, and use this medication only for the indication prescribed. Every effort has been made to ensure that the information provided by LabNow. ('Multum') is accurate, up-to-date, and complete, but no guarantee is made to that effect. Drug information contained herein may be time sensitive. Ringadoc information has been compiled for use by healthcare practitioners and consumers in the [place] and therefore Ringadoc does not warrant that uses outside of the [place] are appropriate, unless specifically indicated otherwise. [employer] drug information does not endorse drugs, diagnose patients or recommend therapy. [employer] drug information isan informational resource designed to [...] effective or appropriate for any given patient. Ringadoc does not assume any responsibility for any aspect of healthcare administered with the aid of information Ringadoc provides. The information contained herein is not intended to cover all possible uses, directions, precautions, warnings, drug interactions, allergic reactions, or adverse effects. If you have questions about the drugs you are taking, check with your doctor, nurse or pharmacist. Copyright 5880-8003 LabNow. Version: 9.01. Revision Date: 11/21/2019. Education Materials [...] if you keep having episodes of hyperglycemia. 8589-3457 The ag[employer]capital. [address] [place] [address], [place] [address]. All rights reserved. This information is not intended as a substitute for professional medical care. Always follow yourhealthcare professional's instructions. Additional Information VACCINATE! IT SAVES LIVES! Members of the community who have not yet received the COVID-19 vaccine and would like to receive it can visit one of [facility] vaccine clinics. There are many vaccine clinic locations within the [facility]. For locations and available times, please visit www.gettheot.[email or web address].[place].gov/. It is important to note that some COVID mobile vaccine clinics are held outdoors and may be canceled in rainy or stormy conditions. To learn more about pediatric vaccinations (ages 5-11), we invite you to visit the [facility] webpage. https://www.[facility].org/pages/2787-Cshaa-Skmvyadimlv-Yedkemgxlx-Uyrvo-Ejo stions.htmlTo learn more about the COVID-19 vaccine, we invite you to visit the CDC website for a list of frequently asked questions. https://www.cdc.gov/coronavirus/2019-ncov/vaccines/faq.html [facility] Patient Portal Access Instructions: Stay connected with your healthcare team and access your personal medical information anytime with the [employer] Patient Portal. If you would like a full copy of your medical records please contact the [facility] Medical Records Department Tuesday through Tuesday between 8a.m. and 4:30p.m. Please follow the directions below to access the portal: 1.Access the email account you provided upon registration to the hospital.2.Look for an invitation email from [facility].3.Open the email and access the invitation link: Accept Invitation to [facility]4.Fill in the required ruelas to create your account. Sign into www.Smart [employer]ventions with your username and password that you [...] you will allow to register on the [employer] Patient Portal for access to your information. You can also access the [facility] Patient Portal on the [employer] fatuma. Simply click on Health Records under jaeyos and then click on the Ab[employer]id logo. HOW TO SAFELY DISPOSE OF PRESCRIPTION [...] Call your local pharmacy or go to http://[email or web address] Entertainment.dooyoo/[email or web address] to find one close to you.3.Make use of household items: Use cat litter or old coffee grounds to dispose medications if other options arenot available. Mix your drugs with these household products, seal them in an airtight container andthrow it into the garbage. Call [facility]: [phone] to be sure your drugs can be [...] been reviewed and explained to me and IFANNY KOURTNEY Lunderstand my current condition and have read and understand these discharge instructions. I have received a written copy of the plan/instructions. If I have questions, I am aware that I should contact my doctor. Patient/Farm Management Adviser Signature: Date/Time: Relationship to Patient: Witness Name/Signature: Date/Time: [facility]12-28-2022 NoteHNO ID: [id number] Author: Savannah Valverde APRN.PREASSEMBLER PRINTED CIRCUIT BOARD Service: ? Author Type: Nurse Practitioner Type: Progress Notes Filed: 05/12/2022 12:59 PM Note Text: Bulk Sausage Casing Tier Off offered: Patient declines. Monique Acevedo is a [...] external genitalia normal, normal Bartholin's glands, urethra, Longdale's glands, no vulvar lesions, no cervical lesions, [...] management Medical Decision Making Level: [facility]ructions* Patient Instructions* Savannah Valverde APRN.CNP - [...] night x 2 weeks. [facility] History of Present illness Narrative* Savannah Valverde APRN.CNP - 05/12/2022 11:35 AM EST Bulk Sausage Casing Tier Off offered: Patient declines. Monique Acevedo is a [...] external genitalia normal, normal Bartholin's glands, urethra, Longdale's glands, no vulvar lesions, no cervical lesions, [...] results. Follow- up as needed. Savannah Valverde APRN.YUSUF Medical Decision Making: Problems: Low: Acute, uncomplicated illness or injury Moderate: 1+ chronic illnesses with change Data: Unique test(s) ordered: 2 Risk: Moderate: Drug management Medical Decision Making Level: 4 - Moderate documented in [facility]12[facility] Hospital Discharge instructions Patient Education 05/05/2022 21:00:34 [...] the first few days. You may use xeag-rcb-nkxohyy medicine, such as acetaminophen or ibuprofen, to [...] F (38 C) or as advised Seizure 6713-1456 The agri.capital. [address] [place] [address], [place] [address]. All rights reserved. This information is not [...] face You have trouble talking or seeing [phone] The agri.capital. [address] [place] [address]. All rights reserved. This information is not intended as a substitute for professional medical care. Always follow yourhealthcare professional's instructions. Follow Up Care 05/05/2022 20:42:51 With:GEOFFREY WHITE MD Address: [address] [place] [address]- When:2-[address] [facility] 12-21-2022 Note Discharge Instructions Thank you for allowing [facility] to assist you with your healthcare needs. The following is importantdischarge information regarding your hospital visit. Diagnosis from Today's Visit Cough Headache What to Do Next Instructions from Your Care Team No qualifying data available. Post Acute Orders No qualifying data available. You Need to Schedule the Following Appointments Follow Up with GEOFFREY WHITE MD When Within 2-4 days Where: [facility] [place] [address]- Allergies NKA Medications Please ask your primary [...] the first few days. You may use atqp-fsa-kgqjgby medicine, such as acetaminophen or ibuprofen, to [...] F (38 C) or as advised Seizure 7837-4581 The agri.capital. [address] [place] [address], [place] [address]. All rights reserved. This information is not [...] face You have trouble talking or seeing [phone] The agri.capital. [address] [place] [address]. All rights reserved. This information is not intended as a substitute for professional medical care. Always follow yourhealthcare professional's instructions. Additional Information VACCINATE! IT SAVES LIVES! Members of the community who have not yet received the COVID-19 vaccine and would like to receive it can visit one of [facility] vaccine clinics. There are many vaccine clinic locations within the [facility]. For locations and available times, please visit www.[email or web address]. It is important to note that some COVID mobile vaccine clinics are held outdoors and may be canceled in rainy orstormy conditions. To learn more about pediatric vaccinations (ages 5-11), we invite you to visit the [facility] webpage. https://www.[facility].org/pages/5343-Exglk-Pavuojafsvn-Rirgjivrsi-Apcad-Fhe stions.htmlTo learn more about the COVID-19 vaccine, we invite you to visit the [facility] website for a list of frequently asked questions. https://[place].org/assets/Gtlgxlms-hmz-Wsxaefxc/sfwas-Cnqjwmi-Iakxhbosre _Asked-Questions.pdf [facility] Patient Portal Access Instructions: Stay connected with your healthcare team and access your personal medical information anytime with the [facility] Patient Portal. If you would like a full copy of your medical records please contact the [facility] Medical Records Department Tuesday through Tuesday between 8a.m. and 4:30p.m. Please follow the directions below to access the portal: 1.Access the email account you provided upon registration to the [facility].2.Look for an invitation email from [facility].3.Open the email and access the invitation link: Accept Invitation to [employer]4.Fill in the required ruelas to create your account. Sign into www.Smart [employer] Inventions with your username and password that you [...] you will allow to register on the [employer] Patient Portal for access to your information. You can also access the [employer] Patient Portal on the [employer]. Simply click on Health Records under jaeyos and then click on the Telx logo. HOW TO SAFELY DISPOSE OF PRESCRIPTION [...] Call your local pharmacy or go to http://Epoch Entertainment.dooyoo/[email or web address] to find one close to you.3.Make use of household items: Use cat litter or old coffee grounds to dispose medications if other options arenot available. Mix your drugs with these household products, seal them in an airtight container andthrow it into the garbage. Call [facility]: [phone] to be sure your drugs can be [...] am aware that I should contactmy doctor. Patient/Farm Management Adviser Signature: Date/Time: Relationship to Patient: Witness Name/Signature: Date/Time: [facility]12-21-2022 SARS-CoV-2 (COVID-19) RNA YURIY+probe Ql (Nph)Negative *NA* (05/05/22 9:02 PM)AO Auto Urine [id number] Hospital Discharge instructions Patient Education 04/24/2022 12:49:32 [...] prescribed. These can be rented or [facility] and surgical or orthopedic [...] alternate ice and heat. You may use uybm-pbf-lkzuuuk pain medicine to control pain, unless another [...] to put weight on the injured side 1691-1389 The agri.capital. [address] [place] [address]. All rights reserved. This information is not intended as a substitute for professional medical care. Always follow yourhealthcare professional's instructions. Follow Up Care 04/24/2022 11:25:28 With:DO TIFFANI BAILEY DO Address: [address] [place] [address] [address] [place] [address] When:2-4 days With:Go to emergency room if symptoms worsen Address:Unknown When:2-[address] [facility] 12-10-2022 Note Discharge Instructions Thank you for allowing [facility] to assist you with your healthcare needs. The following is importantdischarge information regarding your hospital visit. Diagnosis from Today's Visit Arthropathy of hip joint Hip pain-swelling What to Do Next Instructions from Your Care Team No qualifying data available. Post Acute Orders No qualifying data available. You Need to Schedule the Following Appointments Follow Up with LEO, DO NIXON DO When Within 2-4 days Where: [facility] [address] [place] [address] Follow Up with Go to [...] providers or retail pharmacies. Medication Leaflets prednisone (PRED joycelyn Burnette What is the most important information [...] may report side effects to FDA at 9-490-PWC-9018. What other drugs will affect prednisone? Sometimes [...] may affect prednisone. This includes prescription and rvqb-owc-wgfxtdi medicines, vitamins, and herbal products. Not all [...] to ensure that the information provided by LabNow. ('Multum') is accurate, up-to-date, and complete, but no guarantee is made to that effect. Drug information contained herein may be time sensitive. Ringadoc information has been compiled for use by healthcare practitioners and consumers in the [place] and therefore Ringadoc does not warrant that uses outside of the [place] are appropriate, unless specifically indicated otherwise. [employer] drug information does not endorse drugs, diagnose patients or recommend therapy. [employer] drug information isan informational resource designed to [...] effective or appropriate for any given patient. Ringadoc does not assume any responsibility for any aspect of healthcare administered with the aid of information Ringadoc provides. The information contained herein is not intended to cover all possible uses, directions, precautions, warnings, drug interactions, allergic reactions, or adverse effects. If you have questions about the drugs you are taking, check with your doctor, nurse or pharmacist. Copyright 7118-9762 LabNow. Version: 10.. Revision Date: 08/10/2018. Education Materials [...] prescribed. These can be rented or purchased [facility]ies and surgical or orthopedic [...] alternate ice and heat. You may use nqvn-qmz-jwyuikv pain medicine to control pain, unless another [...] to put weight on the injured side 4636-0349 The agri.capital. [address] [place] [address]. All rights reserved. This information is not intended as a substitute for professional medical care. Always follow yourhealthcare professional's instructions. Additional Information VACCINATE! IT SAVES LIVES! Members of the community who have not yet received the COVID-19 vaccine and would like to receive it can visit one of [facility] vaccine clinics. There are many vaccine clinic locations within the [facility]. For locations and available times, please visit www.[email or web address]. It is important to note that some COVID mobile vaccine clinics are held outdoors and may be canceled in rainy orstormy conditions. To learn more about pediatric vaccinations (ages 5-11), we invite you to visit the [facility] webpage. https://www.[facility].org/pages/0842-Xntxr-Dbjfiawjosd-Ubwlmwgwap-Pbqlg-Zio stions.htmlTo learn more about the COVID-19 vaccine, we invite you to visit the [employer] website for a list of frequently asked questions. https://Sentrix.Main [address] Hub/assets/Aggaixha-jyb-Ytctysty/vmwbd-Hcwqqqd-Hcpqmgebhb _Asked-Questions.pdf [facility] Access Instructions: Stay connected with your healthcare team and access your personal medical information anytime with the [facility] Patient Portal. If you would like a full copy of your medical records please contact the [facility] Medical Records Department Tuesday through Tuesday between 8a.m. and 4:30p.m. Please follow the directions below to access the portal: 1.Access the email account you provided upon registration to the [facility].2.Look for an invitation email from [facility].3.Open the email and access the invitation link: Accept Invitation to [facility]4.Fill in the required ruelas to create your account. Sign into www.[employer] with your username and password that you [...] you will allow to register on the [facility] Patient Portal for access to your information. You can also access the [facility] Patient Portal on the In[employer] fatuma. Simply click on Health Records under jaeyos and then click on the [employer] logo. HOW TO SAFELY DISPOSE OF PRESCRIPTION [...] Call your local pharmacy or go to http://bit.ly/6H1Ap0d to find one close to you.3.Make use of household items: Use cat litter or old coffee grounds to dispose medications if other options arenot available. Mix your drugs with these household products, seal them in an airtight container andthrow it into the garbage. Call [facility]: [phone] to be sure your drugs can be [...] am aware that I should contactmy doctor. Patient/Farm Management Adviser Signature: Date/Time: Relationship to Patient: Witness Name/Signature: Date/Time: [facility]12-10-2022 Note ORIGINAL EXAMINATION: TWO XRAY VIEWS [...] Sign Date: 04/24/2022 12:37:27 PM Ordering Provider: [facility]12-10-2022 Note ORIGINAL EXAMINATION: 3 XRAY VIEWS OF [...] Sign Date: 04/24/2022 12:34:59 PM Ordering Provider: [facility]12-10-2022 Note ORIGINAL EXAMINATION: TWO XRAY VIEWS [...] Sign Date: 04/24/2022 12:37:27 PM Ordering Provider: [facility]12-10-2022 Note ORIGINAL EXAMINATION: 3 XRAY VIEWS OF [...] Sign Date: 04/24/2022 12:34:59 PM Ordering Provider: [facility]11-04-2022 History of Present illness Narrative* Sue Mg, PhD - 03/19/2022 2:16 PM EDT [facility] Bariatric Behavioral Services Progress Note March 19, 2022 Patient was a no-show for the Psychology Orientation/Welcome group. If she reschedules, it should be within another Welcome group. Sue Mg, Ph.D. Psychologist documented in [facility]06[facility] Instructions* Patient Instructions* Talia Perez APRN.CNP - 11/10/2021 10:55 AM EDT [email or web address] documented in this encounterHarrison [facility]06-28-[facility]22 History of Present illness Narrative* Talia Perez APRN.CNP - 11/10/2021 10:41 AM EDT This Team Access Model visit is a virtual encounter. It required patient- provider interaction for the medical decision making as documented below. Patient agrees to the visit: Yes Patient Location: [place] CC: Patient presents with: Harvey Acevedo is [...] information about bariatric surgery, link for [facility] bariatric surgery department copied into patient's AVS. Also encouraged patient to call her insurance to discuss their requirements and coverage information - [facility] - Patient advised if she does not wish to proceed with bariatric surgery to consider referral to [facility] and/or weight loss medications. 2. Type 2 [...] care. Talia Perez APRN.CNP documented in this encounterH[facility]06-13-[facility]22 History of Present illness Narrative* Deedee Cotton PA-C - 10/26/2021 2:04 PM EDT Deedee Cotton PA-C Department of Orthopaedics Orthopaedics [address] [facility] [address] Dept: [phone] Dept October 26, 2021 CHIEF COMPLAINT: New [...] is right-hand dominant and works as an [employer]. She denies any previous left elbow injuries. [...] Imaging: Outside images, [facility] X-rays left elbow 3 view 10/23/21 No [...] (Patient not taking: Reported on 09/10/2021 ) Eczxpxotpzxfaoi-Vtwtlvjvv-JX (BROMFED DM) 2-30-10 mg/5 mL syrup Take [...] anxiety) This note was partially generated using [employer] voice recognition system, and there may be [...] Patient states last Tuesday she was at [facility] and started the having discomfort in her left elbow the following day. Continued to work last week and on Tuesday she had increase pain and seen at [facility] here in [place]. States she was unable to move or flex her elbow. No specific injury. She is right hand dominant. 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 She was splinted on riday but took her splint off yesterday due to her splint felt tight and her hand was swollen. Mom and Daughter with patient today. Patient hand carried copy of her x-rays. documented in this encounterH[facility]04-28-2022 Instructions* Patient Instructions* Savannah Valverde APRN.PREASSEMBLER PRINTED CIRCUIT BOARD - 09/10/2021 10:18 AM EDT Minimizing irritation [...] avoid scratching at night. 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 Pmhfcrcvnudrrkq-Dseyxtarv-HO (BROMFED DM) 2-30-10 mg/5 mL syrup Take [...] external genitalia normal, normal Bartholin's glands, urethra, Longdale's glands, no vulvar lesions, no cervical lesions, [...] Level: 4 - Moderate [facility] of Past illness Narrative* Problem Noted [...] of this encounter (statuses as of 09/10/2021) [facility] of Past illness Narrative* Problem Noted [...] of this encounter (statuses as of 10/26/2021) [facility] illness Narrative* Problem Noted [...] of this encounter (statuses as of 11/10/2021) [facility] illness Narrative* Problem Noted [...] of this encounter (statuses as of 03/19/2022) [facility] Narrative* Problem Noted [...] of this encounter (statuses as of 05/18/2022) [facility] Narrative* Problem Noted [...] of this encounter (statuses as of 09/09/2022) [facility] of [facility] illness Narrative* Problem Noted [...] of this encounter (statuses as of 09/11/2022) [facility] No data available for this section [facility] Evaluation note* Diagnosis Onset Date Resolution Status Acute bronchitis, unspecified acute [facility] Work Phone: Evaluation note* Diagnosis Vaginal discharge- Primary Leukorrhea, not specified as infective Vaginal odor Unspecified symptom associated with female genital organs Screen for STD (sexually transmitted disease) Screening examination for venereal disease Menorrhagia with regular cycle Excessive or frequent menstruation Dysmenorrhea [facility] Diagnosis Medial epicondylitis of left elbow- Primary Medial epicondylitis of elbow Family history of rheumatism documented in this encounter [facility] note* Diagnosis Obesity, Class II, BMI 35-39.9- Primary Obesity, unspecified Type 2 diabetes mellitus without complication, without long-term current use of insulin (HCC) [facility]* Diagnosis NO SHOW- Primary documented in this encounter [facility] note* Diagnosis Vaginal discharge- Primary Leukorrhea, not [...] obesity type (HCC) documented in this encounter [facility] note* Diagnosis Onset Date Resolution Status Hyperglycemia acute Urinary tract infection acut e [facility] Work Phone: Evaluation note* Diagnosis Poorly controlled type 2 diabetes mellitus (HCC)- Primary Type II or unspecified type diabetes mellitus without mention of complication, not stated as uncontrolled documented in this encounter [facility] note* Diagnosis COVID-19 SOB (shortness of breath) Shortness of breath History of pulmonary embolism Personal history of pulmonary embolism documented in this encounter [facility] noteNo assessment information availableWMercy [facility] Work Phone: Hospital Discharge instructions No data available for this section [facility] Hospital Discharge instructions Additional Instructions Needle decompression in the ED there is no exudative drainage. Take and finish antibiotic as prescribed. Follow-up with your doctor.[facility] Work Phone: Reason for referral (narrative)* Outpatient Procedure (Routine) - Pending Review Specialty Diagnoses / Procedures Referred By Phuong martinez Referred To Contact [facility] Diagnoses Menorrhagia with regular cycle Dysmenorrhea Procedures INSERT INTRAUTERINE DEVICE LEVONORGESTREL IU 52MG 5 YR INSERT INTRAUTERINE DEVICE Savannah Valverde APRN.CNP [address] [place] [address] [facility] [address] [place] [address] Referral ID Status Reason Start Date Expiration Date Visits Requested Visits Authorized [id number] Pending Review Auto-Generat ed Referral 09/10/2021 09/10/2022 1 1 [facility] for referral (narrative)No reason for referral information availableWMercy Health [facility] Work Phone: Summary note* Pardeep, SERJIO Martínez: PERFORM Event Display: Patient Summary Documents Authored Date: [id number] [facility] Summary Purpose Family History No Family [...] October 10, 2020 5 :42am Power of Item Processing Clerk No October 10, 2020 5:42am Advance Directive Response Recorded Date/ Time Living Will No October 10, 2020 4 :42am Power of Item Processing Clerk No October 10, 2020 4:42am Advance Directive Response Recorded Date/ Time Do you have a Healthcare Power of Item Processing Clerk? No November 03, 2024 2:10pm Chief Complaint and Reason for Visit Chief Complaint CHEST CONGESTION CHEST XRAY Reason for Visit Acute bronchitis, un specified Chief Complaint Urinary tract infect ion Reason for Visit Hyperglycemia Urinary tract infection Chief Complaint Admit Date abscess November 03, 2024 1:04 pm Reason for Referral Specialty Diagnoses / Procedures Referred By Phuong martinez Referred To Contact Diagnoses Poorly controlled type 2 diabetes mellitus (HCC) Procedures ENDOCRINOLOGY DIETITIAN VISIT (MNT) MEDICAL NUTRITION ASSMT&IVNTJ INDIV EACH 15 AL MEDICAL NUTRITION ASSMT&IVNTJ INDIV EACH 15 [place] MEDICAL NUTRITION ASSMT&IVNTJ INDIV EACH 15 [place] MEDICAL NUTRITION ASSMT&IVNTJ INDIV EACH 15 [place] Lupe Gutierrez, VINYL CUTTER.PREASSEMBLER PRINTED CIRCUIT BOARD [address] [place] [id number] Referral ID Status Reason Start Date Expiration Date Visits Requested Visits Authorized [id number] Authorized PCP Requested Referral 09/08/2022 09/08/2023 1 1 Specialty Diagnoses / Procedures Referred By Phuong martinez Referred To Contact Diagnoses Obesity, Class II, BMI 35-39.9 Type 2 diabetes mellitus without complication, without long-term current use of insulin (HCC) Procedures CONSULT [facility] OFFICE/OUTPATIENT NEW HIGH MDM 60-74 MINUTES Older, Talia, VINYL CUTTER.PREASSEMBLER PRINTED CIRCUIT BOARD [address] [facility] [place] [address] Referral ID Status Reason Start Date Expiration Date Visits Requested Visits Authorized [id number] Authorized PCP Requested Referral 11/10/2021 11/10/2022 1 1 Additional Source Comments INFORMATION SOURCE (unrecogn ized section and content) DATE CREATED AUTHOR 12/04/2019 [facility] DATE CREATED AUTHOR AUTHOR'S ORGANIZ ATION 05/01/2020 [facility] DATE CREATED AUTHOR AUTHOR'S ORGANIZ ATION 06/03/2022 [facility] DATE CREATED AUTHOR AUTHOR'S ORGANIZ ATION 03/30/2023 [facility] ([place]) DATE CREATED AUTHOR AUTHOR'S ORGANIZ ATION 04/16/2023 [facility] DATE CREATED AUTHOR AUTHOR'S ORGANIZ ATION 12/09/2024 [facility] Goals (unrecognized section and content) Goals may be documented in a n alternate section Source Comments (unrecognize d section and content) In the event this informatio n is protected by the Federal Confidentiality of Alcohol and Drug Abuse Patient Records regulations: The Federal rules restrict any use of the information to criminally investigate or prosecute any alcohol or drug abuse patient.[facility] HospitalIn the event this information is protected by the Federal Confidentiality of Alcohol and Drug Abuse Patient Records regulations: The Federal rules restrict any use of the information to criminally investigate or prosecute any alcohol or drug abuse patient.[facility] HospitalIn the event this information is protected by the Federal Confidentiality of Alcohol and Drug Abuse Patient Records regulations: The Federal rules restrict any use of the information to criminally investigate or prosecute any alcohol or drug abuse patient.[facility] HospitalIn the event this information is protected by the Federal Confidentiality of Alcohol and Drug Abuse Patient Records regulations: The Federal rules restrict any use of the information to criminally investigate or prosecute any alcohol or drug abuse patient.[facility] HospitalIn the event this information is protected by the Federal Confidentiality of Alcohol and Drug Abuse Patient Records regulations: The Federal rules restrict any use of the information to criminally investigate or prosecute any alcohol or drug abuse patient.[facility] HospitalIn the event this information is protected by the Federal Confidentiality of Alcohol and Drug Abuse Patient Records regulations: The Federal rules restrict any use of the information to criminally investigate or prosecute any alcohol or drug abuse patient.[facility] HospitalIn the event this information is protected by the Federal Confidentiality of Alcohol and Drug Abuse Patient Records regulations: The Federal rules restrict any use of the information to criminally investigate or prosecute any alcohol or drug abuse patient.[facility] HospitalIn the event this information is protected by the Federal Confidentiality of Alcohol and Drug Abuse Patient Records regulations: The Federal rules restrict any use of the information to criminally investigate or prosecute any alcohol or drug abuse patient.[facility] Reason for Visit (unrecogniz ed section and content) Reason Comments STD Reason Comments New Fracture Reason Comments Orders Reason Comments No Show Reason Comments Vaginal Problem Reason Comments Diabetes Type 2 diabetes Reason Comments Results Care Teams (unrecognized sec tion and content) Wine Pasteurizer Relationship Specialty Start Date End Date Geoffrey White MD [address] [place], [place] [id number] PCP - General Internal Medicine 03/24/21 Wine Pasteurizer Relationship Specialty Start Date End Date Geoffrey White MD [address] [place], [place] [id number] PCP - General Internal Medicine 03/24/21 Wine Pasteurizer Relationship Specialty Start Date End Date Geoffrey White MD [address] [place], [place] [id number] PCP - General Internal Medicine 03/24/21 Wine Pasteurizer Relationship Specialty Start Date End Date Geoffrey White MD [address] [place] [address] PCP - General Internal Medicine 03/24/21 Wine Pasteurizer Relationship Specialty Start Date End Date Geoffrey White MD [address] [place] [address] PCP - General Internal Medicine 03/24/21 Team Status: Active Member Role Status Dates No Primary Care Physician Family Provider Active Dr. Geoffrey White MD Primary Care Provider Active Team Status: Inactive Member Role Status Dates Dr. Geoffrey White MD Primary Care Provider, Referring Provider Active ADRIANA Curiel Attending Provider Active Team Status: Inactive Member Role Status Dates Dr. Geoffrey White MD Primary Care Provider Active ADRIANA Curiel Attending Provider, Referring Provi sally Active Wine Pasteurizer Relationship Specialty Start Date End Date Geoffrey White MD [address] [place] [address] PCP - General Internal Medicine 03/24/21 Wine Pasteurizer Relationship Specialty Start Date End Date Geoffrey White MD [address] [place] [address] PCP - General Internal Medicine 03/24/21 Team Status: Active Member Role Status Dates Gideon Alford AIRPLANE DESIGNER, AIRPLANE DESIGNER-C Primary Care Provider Active Team Status: Inactive Member Role Status Dates Gideon Alford AIRPLANE DESIGNER, AIRPLANE DESIGNER-C Primary Care Provider Active Start: November 03, 2024 End: November 03, 2024 Dr. Norman Martinez DO Emergency Provider Active Start : November 03, 2024 End: November 03, 2024 Care Team (unrecognized sect ion and content) Care Team Personnel Name: GEOFFREY WHITE MD Member Role: Primary Care Physician Address: Address: [address] [place] [address]- Care Team Related Persons Name: SHRUTHI GRIGGS Name: SHRUTHI GRIGGS Name: SHRUTHI ZHANG Name: OSMEL SONI Name: RITESH ACEVEDO Address: Home [address] [place] [id number] Care Team Personnel Name: GEOFFREY WHITE MD Member Role: Primary Care Physician Address: Address: [address] [place] [address]- Care Team Related Persons Name: SHRUTHI GRIGGS Name: SHRUTHI GRIGGS Name: SHRUTHI ZHANG Name: OSMEL SONI Name: RITESH ACEVEDO Address: Home [address] FOR RECORDS PERTAINING TO PATIENTS WHO ARE [...] BE BASED ON THE PRIMARY CLINICAL RECORDS. [facility] [employer] provides no warranty or guarantee of the accuracy or completeness of information in this document.
[2024-12-09 21:58] VITALS: BP 132/83; PULSE 97; RESP 20; TEMP 36.6; O2SAT 99
== END 2024-12-09 22:05 | disposition home or self-care (01) ==
PROVIDERS: Emergency Provider Emergency Medicine; PCP Nurse Practitioner Family; Visit Provider Emergency Medicine
DX: S30.0XXA Contusion of lower back and pelvis, initial encounter (principal); M25.562 Pain in left knee; W10.9XXA Fall (on) (from) unspecified stairs and steps, initial encounter; Y92.89 Other specified places as the place of occurrence of the external cause; F17.210 Nicotine dependence, cigarettes, uncomplicated
CPT/HCPCS: 72100; 73564; 96372; 99282

== ENCOUNTER → 2025-01-29 | Outpatient (CLI) | payer MEDICAID, SELFPAY ==
[2025-01-29 10:58] LABS: Hematocrit 41.7 % (37-47); Hemoglobin 14.4 g/dL (12.0-15.0); Immature Granulocytes Count 0.020 X10^3/uL (0.0-0.0); Mean Corp Hgb Conc 34.5 g/dL (32-36); Mean Corpuscular Volume 86.3 fL (81-99); Mean Platelet Vol. 11.3 fl (6.2-12.0); NRBC Flagged by Analyzer 0 % (0-5); Platelet Count 277 K/mm3 (150-450); RBC Distribution Width CV 12.9 % (11.6-14.6); RBC Distribution Width SD 40.0 fl (35.1-43.9); Red Blood Count 4.83 M/mm3 (4.2-5.4); White Blood Count 8.1 K/mm3 (4.4-11.0)
[2025-01-29 11:27] LABS: Creatinine, Urine (random) 58.40 mg/dL (28.00-217.00); Microalbumin,Random Urine < 12.0 mg/L (<20 mg/L)
[2025-01-29 11:46] LABS: AST(SGOT) 17 U/L (<=31); Alanine Aminotransfer ALT/SGPT 22 U/L (<=34); Albumin, Serum 4.1 g/dL (3.5-5.0); Alkaline Phosphatase 115 U/L (35-104); Anion Gap 14 (5-15); BUN 4 mg/dL (4-19); BUN/Creat Ratio 7.3 RATIO (10-20); Calcium,Total 9.0 mg/dL (7.6-11.0); Carbon Dioxide 20.6 mmol/L (21.0-32.0); Chloride 101 mmol/L (98-108); Cholesterol 246 mg/dL (<=200); Globulin 3.0 g/dL (2.2-4.2); Glucose 320 mg/dL (70-99); Low Density Lipoprotein Calc. 176 mg/dL; Potassium 3.9 mmol/L (3.3-5.1); Triglycerides 86 mg/dL; Very Low Density Lipoprotein 17 mg/dL (5-40); cholesterol:hdl ratio screen 4.67
== END | disposition home or self-care (01) ==
LOC: LAB 10:01
DX: E11.9 Type 2 diabetes mellitus without complications (principal)
CPT/HCPCS: 36415; 80053; 80061; 82043; 82570; 83036; 84443; 85025

== ENCOUNTER 2025-02-25 16:08 | Outpatient (CLI) | payer MEDICAID, SELFPAY ==
[2025-03-04 16:09] LABS: HPV APTIMA, High Risk Negative (Negative)
== END 2025-02-25 23:59 | disposition home or self-care (01) ==
DX: Z12.4 Encounter for screening for malignant neoplasm of cervix (principal)
CPT/HCPCS: 87624; 88175; G0145

== ENCOUNTER → 2025-05-01 | Outpatient (CLI) | payer MEDICAID, SELFPAY ==
--- OUTSIDE RECORDS SUMMARY | 2025-05-01 07:29 | XMS RPT_ITS | CCD ---
Author Organization [facility] Care Team Providers Care Color Dipper Name Role Phone CINDY SPARKS, DR GEOFFREY [...] White Referring Provider ADRIANA Ontiveros Attending Provider [phone] AXEL ALFORD DO Primary Care Physician GIDEON DOTY Primary Care Physicia n EMILIE CONWAY, ROSY Booth Admitting Unavaila sugey CONWAY, GIDEON Sloan Primary Care Unava ilable EMILIE CONWAY, ROSY Booth Referring Unavaila ble CHANDANA LUCERO, DR QUINONEZ Attending Unavailable VIRGIL LUCERO, DR KENDAL Madera Attending Unavailable DR GEOFFREY WHITE MD Primary Care UnavailDEL Hawkins DO Attending Unavailable AXEL ALFORD DO Primary Care Unavailable ALESSIA KAUR MD Attending Unavailable DR GEOFFREY WHITE MD Primary Care Unavailnamita MCLEOD MD, BRITNEY Rowe Attending Unavailable AXEL ALFORD DO Primary Care Unavailable CINDY, GEOFFREY Primary Care Unavailable SAVANNAH VALVERDE Attending Unavailable LUPE GUTIERREZ Referring Unavailable GEOFFREY WHITE Primary Care Unavailable LUPE GUTIERREZ Attending Unavailable GEOFFREY WHITE Primary Care Unavailable Cindy SPARKS, Geoffrey Primary Care Provider Lora 3D MODELER-C, Gideon Primary Care Provider [phone] Dr. Norman Martinez DO Emergency Provider Michelle LUCERO, Dr. Austin Attending Provider Jatin Tolliver MD Emergency Provider Lora PARKER-C, Gideon Primary Care Physician Michelle LUCERO, Dr. Austin Attending Physician Dr. Norman Martinez DO Emergency Department Physician Jatin Tolliver MD Attending Physician Jatin Tolliver MD Emergency Department Physician Beam 3D MODELER-C, Zebuneva Primary Care Physician Beam 3D MODELER-C, Zebulueileen Attending Physician Beam 3D MODELER-C, Zebulun Referring Provider Lora PARKER, Gideon Primary Care Unavailable Jatin Tolliver Attending Unavailable Beam VSC, Zebulun Primary Care Unavailable Beam VSC, Zebulun Attending Unavailable Beam VSC, Zebulun Primary Care Unavailable Beam VSC, Zebulun Attending Unavailable Beam VSC, Zebulun Referring Unavailable Selena Solis Referring Unavailable Beam VSC, Zebulun Primary Care Unavailable Selena Solis Attending Unavailable John Echevarria Attending Unavailable Lora PARKER, Gideon Primary Care Unavailable Norman Martinez Attending Unavailable Lora PARKER, Gideon Primary Care Unavailable Medications Current Medications Medication Drug Class(es) Dates Sig (Normalized) Sig (Original) acetaminophen 325 mg / HYDROcodone bitartrate 5 mg oral tablet (7 sources) Opioid Agonist Start: 04-24-2022 acetaminophen-hydr ocodone 325 mg-5 mg oral tablet 0 Refill(s), 104.5 Start Date: 04/24/22 Status: Ordered Start: 12-06-2017 End: 12-12-2017 Hydrocodone-Acetaminophen 1 TABLET tablet Discontinued 1 {tbl} PO EVERY 6 HOURS NEEDED as needed for Pain 10 3 December 06, 2017 12:00am December 12, 2017 10:45am Abdominal pain Unspecified abdominal pain Start: 12-06-2017 End: 12-12-2017 take 1 tablet [...] Status: Ordered cephalexin 500 mg oral capsule (3 sources) Cephalosporin Antibacterial Start: 11-03-2024 take 1 capsule by mouth every six hours ciprofloxacin 500 mg oral tablet (6 sources) Quinolone Antimicrobial Start: 03-24-2023 End: 03-31-2023 Cipro 500 mg oral tablet Dose : 500 mg = 1 tab(s), Oral, q12h, X 7 day(s), # 14 tab(s), 0 Refill(s), 03/31/23 11:34:00 AM EST, Pharmacy: [facility] #[id number], 170.2, cm, 03/22/23 16:11:00 EST, Height, 109.9, kg, 03/22/23 16:24:00 EST, Dosing Weight Start Date: 03/24/23 Stop Date: 03/31/23 Status: Ordered Start: 07-18-2019 End: 05-26-2020 take 1 tablet by mouth twice daily Ciprofloxacin Hcl 500 mg tablet Discontinued 500 mg PO TWICE A DAY 10 July 18, 2019 1:00am Kaylan 11th, 2021 1:07pm hold Macrobid while on this medication cyclobenzaprine hydrochloride 10 mg oral tablet (2 sources) Muscle Relaxant Start: 12-09-2024 take 1 tablet by mouth three times daily as needed for muscle spasms D3-50 50,000 UNIT CAPSULE (1 source) Start: 03-22-2023 D3-50 50,000 UNIT CAPSULE D3-50 50,000 UNIT CAPSULE, 1, 0 Refill(s), 109.1 Start Date: 03/22/23 Status: Ordered doxepin hydrochloride 75 mg oral capsule (1 source) Tricyclic Antidepressant Start: 03-22-2023 doxepin 75 mg oral capsule Dose : 75 mg = 1 cap(s), Oral, qHS Start Date: 03/22/23 Status: Ordered ibuprofen 600 mg oral tablet (19 sources) Nonsteroidal Anti-inflammatory Drug Start: 08-27-2018 take 1 tablet by mouth every six hours as needed for pain Comment on above: Take by mouth. 3 ml insulin glargine 100 unt/ml pen injector (6 sources) Insulin Analog Start: 03-25-2023 End: 04-24-2023 inject 1 dose by subcutaneous injection once daily at bedtime Lantus Solostar Pen 100 units/mL 3 mL Pen Dose : 25 unit(s) =, Subcutaneous, qHS, # 15 mL, 0 Refill(s), [facility]acy: [facility] #[id number], 170.2, cm, 03/22/23 16:11:00 EST, Height, kg, [...] # 15 mL, 0 Refill(s), PEN, [facility]acy: [facility] #[id number], 170.2, cm, 03/22/23 16:11:00 EST, Height, kg, [...] should be in vagina for 6-8 hours. naproxen 500 mg oral tablet (2 sources) Nonsteroidal Anti-inflammatory Drug Start: 12-09-2024 take 1 tablet by mouth twice daily as needed for pain sulfamethoxazole 800 mg / trimethoprim 160 mg oral tablet (7 sources) Dihydrofolate Reductase Inhibitor Antibacterial, Sulfonamide Antimicrobial Start: 11-03-2024 Start: 05-31-2022 End: 06-07-2022 Sulfamethoxazole-Trimethopri m (Bactrim Ds) 800-160 mg tablet Discontinued 1 {tbl} PO Q12H 14 7 0 May 31, 2022 1:00am June 06, 2022 1:00am June 07, 2022 1:03am Completed/Discontinued Medications Medication Drug Class(es) Dates Sig (Normalized) Sig (Original) 200 actuat albuterol 0.09 mg/actuat dry powder inhaler (13 sources) beta2-Adrenergic Agonist Start: 05-04-2024 End: 11-03-2024 Albuterol Sulfate 90 mcg/actuation aerosol powdr breath activated Discontinued 2 NMA INHALATION EVERY 6 HOURS as needed for shortness of breath or wheezing 1 3 May 04, 2024 1:00am November 03, 2024 [...] of breath. amoxicillin 500 mg oral capsule (17 sources) Penicillin-class Antibacterial Start: End: take 1 capsule by mouth three times daily Amoxicillin 500 mg capsule Discontinued 500 mg PO THREE TIMES A DAY 30 10 0 July 19, 2022 1:00am July 28, 2022 [...] 1000 mg PO TWICE A DAY 40 10 March 08, 2018 12:00am March 17, 2018 12:00am March 18, 2018 12:11am sore throat Start: 03-08-2018 End: 03-18-2018 take 1000 mg by mouth twice daily Amoxicillin Discontinued 1000 MG PO TWICE A DAY 40 March 08, 2018 12:15pm March 18, 2018 12:11am Start: 07-08-2017 End: 07-14-2017 take 2 capsules by mouth twice daily Amoxicillin 500 mg capsule Discontinued 1000 mg PO TWICE A DAY 40 10 0 July 08, 2017 1:00am July 17, 2017 [...] mg / clavulanate 125 mg oral tablet (5 sources) Penicillin-class Antibacterial Start: End: Amoxicillin-Pot Clavulanate (Augmentin) 875-125 mg tablet Discontinued 1 {tbl} PO Q12H 20 10 0 May 26, 2020 1:00am June 04, 2020 1:00am June 05, 2020 1:03am Acute sinusitis, unspecified azithromycin 250 mg oral tablet (5 sources) Macrolide Antimicrobial Start: End: take 2-5 tablets by mouth once daily Azithromycin 250 mg tablet Discontinued 0 PO .COMPLEX 6 0 October 17, 2018 12:00am March 15, 2019 12:02pm take 500 mg today (day 1), then 250 mg for 4 days (days 2-5) PO benzonatate 200 mg oral capsule (5 sources) Non-narcotic Antitussive Start: End: take 1 capsule by mouth three times daily as needed for cough Benzonatate 200 mg capsule Discontinued 200 mg PO THREE TIMES A DAY as needed for cough 10 0 March 15, 2019 12:00am July 16, 2019 [...] oral solution (3 sources) alpha-Adrenergic Agonist, Uncompetitive H-enjwmi-T-aspartate Receptor Antagonist, Sigma-1 Agonist Start: End: take [...] weeks) doxycycline monohydrate 100 mg oral capsule (5 sources) Tetracycline-class Drug Start: End: take 1 [...] Pen After fluconazole 150 mg oral tablet (5 sources) Azole Antifungal Start: End: Fluconazole 150 mg tablet Discontinued 150 mg PO Every 3 Days 2 0 July 16, 2019 1:00am May 26, 2020 1:07pm vaginal irritation isopropyl alcohol 0.7 ml/ml medicated pad (2 sources) Start: 023 alcohol swabs Uses 3 per day with insulin injections. 300 Each 3 09/08/2022 Active Comment on above: Uses 3 per day with insulin injections. 1 ml ketorolac tromethamine 30 mg/ml injection (1 source) Nonsteroidal Anti-inflammatory Drug, Cyclooxygenase Inhibitor Start: 018 End: inject 15 mg by intramuscular injection [...] capsule by mouth once daily. 30 capsule 11 03/24/2021 05/13/2022 Discontinued Start: 03-24-2021 take 1 capsule by mo uth once daily L. acidophilus,casei,rhamnosus 50 billio n cell cpDR Indications: BV (bacterial vaginosis) Take 1 capsule by mouth once daily. 30 capsule 11 03/24/2021 Active Comment on above: Take 1 [...] KEEP REFRIGERATED levoFLOXacin 500 mg oral tablet (5 sources) Quinolone Antimicrobial Start: 07-17-19 End: 05-28-19 23 take 1 tablet by mouth once daily Levofloxacin 500 mg tablet Discontinued 500 mg PO DAILY 10 0 July 16, 2021 1:00am May 28, 2022 10:48am metroNIDAZOLE 500 mg oral tablet (6 sources) Nitroimidazole Antimicrobial Start: 05-28-19 End: 05-04-20 [...] / nitrofurantoin, monohydrate 75 mg oral capsule (14 sources) Nitrofuran Antibacterial Start: 05-28-2022 End: 06-04-2022 take 1 capsule by mouth every twelve hours at mealtime Nitrofurantoin Monohyd/M-Cryst 100 mg capsule Discontinued 1 NMA PO Q12H 14 7 0 May 28, 2022 1:00am June 03, 2022 1:00am June 04, 2022 1:04am administer with a meal/food; swallow whole; do not open, crush, dissolve , or chew Start: 01-13-2021 End: 01-20-2021 take 1 capsule by mouth every twelve hours at mealtime Nitrofurantoin Monohyd/M-Cryst 100 mg capsule Discontinued 1 NMA PO Q12H 14 7 0 January 13, 2021 12:00am January 19, 2021 12:00am January 20, 2021 12:01am administer with a meal/food; swallow whole; do not open, crush, dissolve , or chew Start: 07-16-2019 End: 07-23-2019 take 1 capsule by mouth every twelve hours at mealtime Nitrofurantoin Monohyd/M-Cryst (Macrobid) 100 mg capsule Discontinued 100 mg PO Q12H 14 7 0 July 16, 2019 1:00am July 22, 2019 1:00am July 23, 2019 12:09am must administer with a meal/food ondansetron 4 mg oral tablet (7 sources) Serotonin-3 Receptor Antagonist Start: 09-08-2022 take [...] HOURS as needed for nausea and vomiting 20 0 March 12, 2021 12:00am May 28, 2022 10:48am Comment on above: Take 1 tablet by margaret every 8 hours as needed for nausea/vomiting. oseltamivir 75 mg oral capsule (5 sources) Neuraminidase Inhibitor Start: 2017 End: 2017 take 1 capsule by mouth once daily Oseltamivir (Tamiflu) 75 mg capsule Discontinued 75 mg PO daily 10 10 0 June 28, 2017 1:00am July 07, 2017 1:00am July 08, 2017 1:10am Contact with and (suspected) exposure to other viral communicable diseases phenazopyridine hydrochloride 100 mg oral tablet (14 sources) Start: 2020 End: 2023 take 1 tablet by mouth three times daily at mealtime for pain Phenazopyridine (Pyridium) 100 mg tablet Discontinued 100 mg PO THREE TIMES A DAY as needed for pain 7 0 May 28, 2022 1:00am May 04, 2024 1:04am administer with a full glass of water after each meal Start: 07-16-2019 End: 05-26-2020 take 1 tablet by mouth three times daily as needed for pain Phenazopyridine (Pyridium) 200 mg tablet Discontinued 200 mg PO THREE TIMES A DAY as needed for pain 6 0 0 July 16, 2019 1:00am May 26, 2020 1:07pm predniSONE 50 mg oral tablet (10 sources) Start: 05-04-2024 End: 11-03-2024 take 1 tablet by mouth once daily Prednisone 50 mg tablet Discontinued 50 mg PO DAILY 5 5 0 May 04, 2024 1:00am November 03, 2024 [...] and 12. QUEtiapine 25 mg oral tablet (5 sources) Atypical Antipsychotic Start: 08-21-19 End: 07-16-19 take 1 tablet by mouth at bedtime [...] dose sulfacetamide sodium 100 mg/ml ophthalmic solution (5 sources) Sulfonamide Antibacterial Start: 04-26-20 17 End: 07-08-19 18 take 1 drop(s) into the eye(s) every three hours Sulfacetamide Sodium (Bleph-10) 10 % drops Discontinued 1 NMA OPHTHALMIC Q3H 5 0 April 26, 2017 1:00am July 08, 2017 2:38pm Unspecified acute conjunctivitis, unspecified eye 1 drop to each eye every 3 hours Start: 04-26-2017 End: 07-08-2017 take 1 drop(s) into the eye(s) every three hours Sulfacetamide Sodium (Bleph-10) 10 % drops Discontinued 1 DRP OPHTHALMIC Q3H 5 April 26, 2017 3:08pm July 08, 2017 2:38pm 1 drop to each eye every 3 hours Problems Active Problems Problem Classification Problem Date Documented Date Episodic/Chronic Acute bronchitis (6 sources) Acute bronchitis; Translations: [Acute bronchitis, unspecified] Episodic Anxiety disorders (6 sources) Anxiety 07-06-2016 Chronic Chronic obstructive pulmonary disease and bronchiectasis (5 sources) Bronchitis; Translations: [Bronchitis, not specified as acute or chronic] 10-16-2018 Episodic Diabetes mellitus without complication (17 sources) Diabetes mellitus; Translations: [Type 2 diabetes mellitus without complications] Onset: 06-18-2014 08-27-2018 Chronic Comment on above: diet controlled Diabetes mellitus without complication (7 sources) Hyperglycemia; Translations: [Hyperglycemia, unspecified] Onset: 08-25-2022 05-28-2022 Episodic E Codes: Fall (2 sources) Fall (on) (from) other stairs and steps, initial encounter; Translations: [Fall down stairs] 12-09-2024 Episodic Fluid and electrolyte disorders (1 source) Dehydration; Translations: [Dehydration] Onset: 03-01-2023 Episodic Genitourinary symptoms and ill-defined conditions (9 sources) Dysuria; Translations: [Dysuria] 07-14-2017 Episodic Headache; including migraine (8 sources) Migraine; Translations: [Migraine, unspecified, not intractable, without status migrainosus] Onset: 07-19-2007 Resolved: 10-17-2014 12-12-2017 Chronic Immunizations and screening for infectious disease (20 sources) Patient encounter status; Translations: [Encounter for screening for COVID-19] Onset: 02-25-2025 Episodic Inflammation; infection of eye (except that caused by tuberculosis or sexually transmitteddisease) (5 sources) Acute infectious conjunctivitis; Translations: [Unspecified acute conjunctivitis, unspecified eye] 04-26-2017 Episodic Malaise and fatigue (2 sources) Other fatigue; Translations: [Asthenia] Onset: 06-02-2022 Episodic Menstrual disorders (3 sources) Menorrhagia; Translations: [Excessive and frequent menstruation with regular cycle] Onset: 02-25-2025 Chronic Other connective tissue disease (1 source) Medial epicondylitis of left humerus; Translations: [Medial epicondylitis, left elbow] Episodic Other female genital disorders (2 sources) Vaginal discharge; Translations: [Other specified noninflammatory disorders of vagina] Episodic Other female genital disorders (1 source) Vaginal odor; Translations: [Other specified noninflammatory disorders of vagina] Episodic Other injuries and conditions due to external causes (2 sources) Other specified injuries of thorax, initial encounter; Translations: [Contusion of rib on left side] 10-10-2020 Episodic Other lower respiratory disease (1 source) Dyspnea; Translations: [Shortness of breath] 06-02-2021 Episodic Other nervous system disorders (5 sources) Loss of taste; Translations: [Parageusia] 01-21-2021 Episodic Other nervous system disorders (5 sources) Loss of sense of smell; Translations: [Anosmia] 01-21-2021 Episodic Other non-traumatic joint disorders (1 source) Disorder of joint region; Translations: [Joint disorder, unspecified] Onset: 04-24-2022 Episodic Other non-traumatic joint disorders (1 source) Pain in unspecified joint; Translations: [Pain in unspecified joint] Onset: 06-02-2022 Episodic Other non-traumatic joint disorders (2 sources) Pain in left knee; Translations: [Posterior left knee pain] 12-09-2024 Episodic Other nutritional; endocrine; and metabolic disorders [...] Chronic Other nutritional; endocrine; and metabolic disorders (3 sources) H/O: diabetes mellitus; Translations: [Personal history of other endocrine, nutritional and metabolic disease] 11-03-2024 Episodic Other screening for suspected conditions (not mental disorders or infectious disease) (2 sources) Encounter for screening for lipoid disorders; Translations: [Encounter for screening for malignant neoplasm of cervix] Onset: 06-02-2022 Episodic Other skin disorders (5 sources) Sebaceous cyst of skin; Translations: [Sebaceous cyst] 03-11-2021 Episodic Other skin disorders (1 source) Folliculitis; Translations: [Follicular disorder, unspecified] Episodic Other upper respiratory infections (18 sources) Acute upper respiratory infection; Translations: [Acute [...] Spondylosis; intervertebral disc disorders; other back problems (5 sources) Backache; Translations: [Dorsalgia, unspecified] 07-14-2017 Episodic Sprains and strains (5 sources) Strain of muscle and/or tendon of lower leg; Translations: [Strain of unspecified muscle and tendon at ankle and foot level, right foot, initial encounter] 08-17-2021 Episodic Substance-related disorders (17 sources) Tobacco user; Translations: [Nicotine dependence, unspecified, uncomplicated] Onset: 07-21-2005 05-11-2021 Chronic Superficial injury; contusion (11 sources) Contusion of rib; Translations: [Contusion of left front wall of thorax, initial encounter] Onset: 12-17-2024 10-10-2020 Episodic Unclassified (1 source) NO SHOW Urinary tract infections (7 sources) Urinary tract infectious disease; Translations: [Urinary [...] Translations: [Obesity, unspecified] Resolved: 02-08-2014 02-08-2014 Chronic Skin and subcutaneous tissue infections (4 sources) Cellulitis of face; Translations: [Cellulitis of face] Onset: 11-04-2024 11-03-2024 Episodic Unclassified (1 source) SUMMARY Onset: 06-18-2014 Resolved: 10-17-2014 10-17-2014 Results Test Name Value Interpretation Reference Range Facil ity PAP IG HPV APTIMA 16/18,45on 03-04-2025 ADEQ Comment Normal . [facility] Comment on above: Order Comment: Speci men Comment: [id number] Specimen Comment: Source.............Cervix Specimen Comment: No. of containers..01 ThinPrep Vial Result Comment: Spec imen processed and examined, but unsatisfactory for evaluation of epithelial abnormality because of excessive lubricant. Performed By: #### L 7400.0280, L3410.9992 #### [facility] [address] [place], [place], [id number] COMM . Normal . [facility] Comment on above: Order Comment: Speci men Comment: [id number] Specimen Comment: Source.............Cervix Specimen Comment: No. of containers..01 ThinPrep Vial Performed By: #### L 7400.0280, L3410.9992 #### [facility] [address] [place], [place], [id number] COMMENT Comment Normal . [facility] Comment on above: Order Comment: Speci men Comment: [id number] Specimen Comment: Source.............Cervix Specimen Comment: No. of containers..01 ThinPrep Vial Result Comment: This liquid based ThinPrep(R) pap test was interpreted using the Tripda(R) Genius(TM) Cervical Algorithm whole slide imaging system. Performed By: #### L 7400.0280, L3410.9992 #### [facility] [address] [place], [address] DIAG Comment Normal . [facility] Comment on above: Order Comment: Speci men Comment: [id number] Specimen Comment: Source.............Cervix Specimen Comment: No. of containers..01 ThinPrep Vial Result Comment: UNSA TISFACTORY FOR EVALUATION. Performed By: #### Tanya 7400.0280, [id number] #### [facility] [address] [place], [address] HPV APTIMA, HR Negative Normal Negative [facility] Comment on above: Order Comment: Speci men Comment: [id number] Specimen Comment: Source.............Cervix Specimen Comment: No. of containers..01 ThinPrep Vial Result Comment: This nucleic acid amplification test detects fourteen high- risk HPV types (16,18,31,33,35,39,45,51,52,56,58,59,66,68) without differentiation. Performed By: #### L 7400.0280, L3410.9992 #### [facility] [address] [place], [address] HPV Xochilt Rfx Comment Normal . [facility] Comment on above: Order Comment: Speci men Comment: [id number] Specimen Comment: Source.............Cervix Specimen Comment: No. of containers..01 ThinPrep Vial Result Comment: Crit eria not met, HPV Genotype not performed. Performed at: [address] [id number] Cloud Developer: Ingrid Pinedo MD, Phone: [phone] Performed at: =[facility] [address] [place] [id number] Cloud Developer: Ingrid Pinedo MD, Phone: [phone] Performed By: #### L 7400.0280, [id number] #### [facility] [address] [place], [place], [id number] PAPSMR Comment Normal . [facility] Comment on above: Order Comment: Speci men Comment: [id number] Specimen Comment: Source.............Cervix Specimen Comment: No. of containers..01 ThinPrep Vial Result Comment: The Pap smear is a screening test designed to aid in the detection of premalignant and malignant conditions of the uterine cervix. It is not a diagnostic procedure and should not be used as the sole means of detecting cervical cancer. Both false-positive and false-negative reports do occur. Performed By: #### L 7400.0280, [id number] #### [facility] [address] [place], [place], [id number] PERFORM Comment Normal . [facility] Comment on above: Order Comment: Speci men Comment: [id number] Specimen Comment: Source.............Cervix Specimen Comment: No. of containers..01 ThinPrep Vial Result Comment: Earl Longoria Bridge Worker Apprentice (ASCP) Performed By: #### L 7400.0280, [id number] #### [facility] [address] [place], [place], [id number] QC REV Comment Normal . [facility] Comment on above: Order Comment: Speci men Comment: [id number] Specimen Comment: Source.............Cervix Specimen Comment: No. of containers..01 ThinPrep Vial Result Comment: Sosa Veronica, Bridge Worker Apprentice Performed By: #### L 7400.0280, [id number] #### [facility] [address] [place], [address] RECOMM Comment Normal . [facility] Comment on above: Order Comment: Speci men Comment: [id number] Specimen Comment: Source.............Cervix Specimen Comment: No. of containers..01 ThinPrep Vial Result Comment: Sugg est follow up as clinically appropriate. Performed By: #### L 7400.0280, [id number] #### [facility] [address] [place], [address] L3410.9992on 02-28-2025 [facility] [place]. COMMENT Normal . [facility] Comment on above: Order Comment: [id number] 1 NUSWAB VG+ Result Comment: Test Ordered: [id number] NuSwab Vaginitis Plus (VG+) Test(s) 565679- Atopobium vaginae; 858307- BVAB 2; 692415- Megasphaera 1 was developed and its performance characteristics determined by [facility]. It has not been cleared or approved by the Food and Drug Administration. Test(s) 810109-Pbqxgpc albicans, YURIY; 250856- Bailey glabrata, YURIY was developed and its performance characteristics determined by [facility]. It has not been cleared or approved by the Food and Drug Administration. Atopobium vaginae High - 2 [A ] Score =G Reference Range: . BVAB 2 High - 2 [A ] Score =G Reference Range: . Megasphaera 1 Low - 0 Score =G Reference Range: . Calculate total score by adding the 3 individual bacterial vaginosis (BV) marker scores together. Total score is interpreted as follows: Total score 0-1: Indicates the absence of BV. Total score 2: Indeterminate for BV. Additional clinical data should be evaluated to establish a diagnosis. Total score 3-6: Indicates the presence of BV. Bailey albicans, YURIY Negative =G Reference Range: Negative Bailey glabrata, YURIY Positive [A ] =G Reference Range: Negative Published data demonstrate that up to 65% of Bailey glabrata identified in cases of vaginal candidiasis have decreased susceptibility to fluconazole. Trich vag by YURIY Negative =G Reference Range: Negative Chlamydia trachomatis, YURIY Negative =G Reference Range: Negative Neisseria gonorrhoeae, YURIY Negative =G Reference Range: Negative Performed at: = - [facility] [id number] Cloud Developer: Ingrid Pinedo MD, Phone: [phone] Performed at: - [facility] [id number] Cloud Developer: Yusuf Lackey PhD, Phone: [phone] Performed By: #### L 7400.0280, L3410.9992 #### [facility] [address] [place], [address] Absolute lymphocyte countOrd ered By: Zebulun Beam on 01-29-2025 Lymphocytes Auto (Unsp spec) [#/Vol] 2.33 10*3/uL 0.83-4.51 [facility] Absolute neutrophil countOrd ered By: bulun Beam on 01-29-2025 Neutrophils (Bld) [#/Vol] 5.1 10*3/uL 2.0-7.7 [facility] Anion gap in Serum or Plasma Ordered By: bulun Beam on 01-29-2025 Anion gap [Moles/Vol] 14 mmol/L 5-15 [facility] Automated lymphocyte count a s percentage of total leukocytesOrdered By: bulun Beam on 01-29-2025 Lymphocytes/100 WBC Auto (Unsp spec) 28.7 % 19-41 [facility] BUN/creatinine ratioOrdered By: bulun Beam on 01-29-2025 Urea nitrogen/Creatinine [Mass ratio] 7.3 mg/mg Low 10-20 [facility] Basophil percentageOrdered B y: Zebulun Beam on 01-29-2025 Basophils/100 WBC (Bld) 0.4 % 0-1 [facility] Bilirubin, totalOrdered By: Zebulun Beam on 01-29-2025 Bilirubin [Mass/Vol] 0.29 mg/dL 0.00-1.30 [facility] CBC W/Diff, Automatedon 01-14 Absolute Lymph 2.33 X10 3/uL Normal 0.83-4.51 [facility] Comment on above: Performed By: #### L 501.9985, L501.9520, L100.0100, L500.4100, L500.4050, L502.0250 #### [facility] [address] [place], [address] Absolute Neut 5.1 X10 3/uL Normal 2.0-7.7 [facility] Comment on above: Performed By: #### L 501.9985, L501.9520, L100.0100, L500.4100, L500.4050, L502.0250 #### [facility] [address] [place], [address] Basophils/100 WBC (Bld) 0.4 % Normal 0-1 [facility] Comment on above: Performed By: #### L 501.9985, L501.9520, L100.0100, L500.4100, L500.4050, L502.0250 #### [facility] [address] [place], [address] Eosinophils/100 WBC (Bld) 1.0 % Normal 0-5 [facility] Comment on above: Performed By: #### L 501.9985, L501.9520, L100.0100, L500.4100, L500.4050, L502.0250 #### [facility] [address] [place], [address] Erythrocyte distribution width (RBC) [Ratio] 12.9 % Normal 11.6-14.6 [facility] Comment on above: Performed By: #### L 501.9985, L501.9520, L100.0100, L500.4100, L500.4050, L502.0250 #### [facility] [address] [place], [address] Hematocrit (Bld) [Volume fraction] 41.7 % Normal 37-47 [facility] Comment on above: Performed By: #### L 501.9985, L501.9520, L100.0100, L500.4100, L500.4050, L502.0250 #### [facility] [address] [place], [address] Hemoglobin (Bld) [Mass/Vol] 14.4 g/dL Normal 12.0-15.0 [facility] Comment on above: Performed By: #### L 501.9985, L501.9520, L100.0100, L500.4100, L500.4050, L502.0250 #### [facility] [address] [place], [address] IG% 0.200 Normal 0.0-0.9 [facility] Comment on above: Result Comment: IG% - Immature Granulocytes (promyelocytes, myelocytes and metamyelocytes) > 1% indicates that a LEFT SHIFT is Present. Performed By: #### L 501.9985, L501.9520, L100.0100, L500.4100, L500.4050, L502.0250 #### [facility] [address] [place], [address] Lymphocytes/100 WBC (Bld) 28.7 % Normal 19-41 [facility] Comment on above: Performed By: #### L 501.9985, L501.9520, L100.0100, L500.4100, L500.4050, L502.0250 #### [facility] [address] [place], [address] MCH (RBC) [Entitic mass] 29.8 pg Normal 27.0-32.0 [facility] Comment on above: Performed By: #### L 501.9985, L501.9520, L100.0100, L500.4100, L500.4050, L502.0250 #### [facility] [address] [place], [address] MCHC (RBC) [Mass/Vol] 34.5 g/dL Normal 32-36 [facility] Comment on above: Performed By: #### L 501.9985, L501.9520, L100.0100, L500.4100, L500.4050, L502.0250 #### [facility] [address] [place], [address] MCV (RBC) [Entitic vol] 86.3 fL Normal 81-99 [facility] Comment on above: Performed By: #### L 501.9985, L501.9520, L100.0100, L500.4100, L500.4050, L502.0250 #### [facility] [address] [place], [address] Monocytes/100 WBC (Bld) 7.3 % Normal 0-10 [facility] Comment on above: Performed By: #### L 501.9985, L501.9520, L100.0100, L500.4100, L500.4050, L502.0250 #### [facility] [address] [place], [address] Neutrophils/100 WBC (Bld) 62.4 % Normal 47-70 [facility] Comment on above: Performed By: #### L 501.9985, L501.9520, L100.0100, L500.4100, L500.4050, L502.0250 #### [facility] [address] [place], [address] Nucleated RBC (Bld) [#/Vol] 0 10*3/uL Normal 0-5 [facility] Comment on above: Performed By: #### L 501.9985, L501.9520, L100.0100, L500.4100, L500.4050, L502.0250 #### [facility] [address] [place], [address] Platelet mean volume (Bld) [Entitic vol] 11.3 fL Normal 6.2-12.0 [facility] Comment on above: Performed By: #### L 501.9985, L501.9520, L100.0100, L500.4100, L500.4050, L502.0250 #### [facility] [address] [place], [address] Platelets (Bld) [#/Vol] 277 10*3/uL Normal 150-450 [facility] Comment on above: Performed By: #### L 501.9985, L501.9520, L100.0100, L500.4100, L500.4050, L502.0250 #### [facility] [address] [place], [address] RBC (Bld) [#/Vol] 4.83 10*6/uL Normal 4.2-5.4 [facility] Comment on above: Performed By: #### L 501.9985, L501.9520, L100.0100, L500.4100, L500.4050, L502.0250 #### [facility] [address] [place], [address] RDW SD 40.0 fl Normal 35.1-43.9 [facility] Comment on above: Performed By: #### L 501.9985, L501.9520, L100.0100, L500.4100, L500.4050, L502.0250 #### [facility] [address] [place], [address] WBC (Bld) [#/Vol] 8.1 10*3/uL Normal 4.4-11.0 [facility] Comment on above: Performed By: #### L 501.9985, L501.9520, L100.0100, L500.4100, L500.4050, L502.0250 #### [facility] [address] [place], [address] Calculated very low density lipoprotein (VLDL) cholesterol measurementOrdered By: Zebulun Beam on 01-29-2025 Calculated very low density lipoprotein (VLDL) cholesterol measurement 17 mg/dL 5-40 [facility] Carbon dioxide, total [Moles /volume] in Central venous bloodOrdered By: Zebulun Beam on 01-29-2025 CO2 [Moles/Vol] 20.6 mmol/L Low 21.0-32.0 [facility] Chloride assayOrdered By: Ze bulun Beam on 01-29-2025 Chloride [Moles/Vol] 101 mmol/L 98-108 [facility] Comprehensive Metabolic Prof ilon 01-29-2025 Albumin [Mass/Vol] 4.1 g/dL Normal 3.5-5.0 [facility] Comment on above: Performed By: #### L 501.9985, L501.9520, L100.0100, L500.4100, L500.4050, L502.0250 ####[facility] [address] [place], [address] Albumin/Globulin [Mass ratio] 1.4 {ratio} Normal 0.9-2.4 [facility] Comment on above: Performed By: #### L 501.9985, L501.9520, L100.0100, L500.4100, L500.4050, L502.0250 ####[facility] [address] [place], [address] ALK PHOS 115 U/L High 35-104 [facility] Comment on above: Performed By: #### L 501.9985, L501.9520, L100.0100, L500.4100, L500.4050, L502.0250 ####[facility] [address] [place], [address] ALT [Catalytic activity/Vol] 22 U/L Normal <=34 [facility] Comment on above: Performed By: #### L 501.9985, L501.9520, L100.0100, L500.4100, L500.4050, L502.0250 ####[facility] [address] [place], [address] AST [Catalytic activity/Vol] 17 U/L Normal <=31 [facility] Comment on above: Performed By: #### L 501.9985, L501.9520, L100.0100, L500.4100, L500.4050, L502.0250 ####[facility] [address] [place], [address] Bilirubin [Mass/Vol] 0.29 mg/dL Normal 0.00-1.30 [facility] Comment on above: Performed By: #### L 501.9985, L501.9520, L100.0100, L500.4100, L500.4050, L502.0250 ####[facility] [address] [place], [address] BUN/CRE 7.3 RATIO Low 10-20 [facility] Comment on above: Performed By: #### L 501.9985, L501.9520, L100.0100, L500.4100, L500.4050, L502.0250 ####[facility] [address] [place], [address] Calcium [Mass/Vol] 9.0 mg/dL Normal 7.6-11.0 [facility] Comment on above: Performed By: #### L 501.9985, L501.9520, L100.0100, L500.4100, L500.4050, L502.0250 ####[facility] [address] [place], [address] Chloride [Moles/Vol] 101 mmol/L Normal 98-108 [facility] Comment on above: Performed By: #### L 501.9985, L501.9520, L100.0100, L500.4100, L500.4050, L502.0250 ####[facility] [address] [place], [address] CO2 [Moles/Vol] 20.6 mmol/L Low 21.0-32.0 [facility] Comment on above: Performed By: #### L 501.9985, L501.9520, L100.0100, L500.4100, L500.4050, L502.0250 ####[facility] [address] [place], [place], [id number] Creatinine [Mass/Vol] 0.55 mg/dL Low 0.70-1.20 [facility] Comment on above: Performed By: #### L 501.9985, L501.9520, L100.0100, L500.4100, L500.4050, L502.0250 ####[facility] [address] [place], [place], [id number] GAP 14 Normal 5-15 [facility] Comment on above: Performed By: #### L 501.9985, L501.9520, L100.0100, L500.4100, L500.4050, L502.0250 ####[facility] [address] [place], [place], [address] GFR/1.73 sq M.predicted among non-blacks MDRD (S/P/Bld) [Vol rate/Area] 121 mL/min/{1.73_m2} Normal >60 [facility] Comment on above: Result Comment: mL/m in/1.73m2 CKD-EPI Creatinine Equation (2020) Performed By: #### L 501.9985, L501.9520, L100.0100, L500.4100, L500.4050, L502.0250 ####[facility] [address] [place], [address] Globulin (S) [Mass/Vol] 3.0 g/dL Normal 2.2-4.2 [facility] Comment on above: Performed By: #### L 501.9985, L501.9520, L100.0100, L500.4100, L500.4050, L502.0250 ####[facility] [address] [place], [address] Glucose [Mass/Vol] 320 mg/dL High 70-99 [facility] Comment on above: Performed By: #### L 501.9985, L501.9520, L100.0100, L500.4100, L500.4050, L502.0250 ####[facility] [address] [place], [address] Potassium [Moles/Vol] 3.9 mmol/L Normal 3.3-5.1 [facility] Comment on above: Performed By: #### L 501.9985, L501.9520, L100.0100, L500.4100, L500.4050, L502.0250 ####[facility] [address] [place], [address] Sodium [Moles/Vol] 135 mmol/L Normal 133-145 [facility] Comment on above: Performed By: #### L 501.9985, L501.9520, L100.0100, L500.4100, L500.4050, L502.0250 ####[facility] [address] [place], [address] T PROT 7.1 g/dL Normal 5.9-8.4 [facility] Comment on above: Performed By: #### L 501.9985, L501.9520, L100.0100, L500.4100, L500.4050, L502.0250 ####[facility] [address] [place], [address] Urea nitrogen [Mass/Vol] 4 mg/dL Normal 4-19 [facility] Comment on above: Performed By: #### L 501.9985, L501.9520, L100.0100, L500.4100, L500.4050, L502.0250 ####[facility] [address] [place], [address] Eosinophil percentageOrdered By: bulun Beam on 01-29-2025 Eosinophils/100 WBC (Bld) 1.0 % 0-5 [facility] Erythrocyte distribution wid th ratioOrdered By: [facility] on 01-29-2025 Erythrocyte distribution width (RBC) [Ratio] 12.9 % 11.6-14.6 [facility] Erythrocyte distribution wid th standard deviationOrdered By: [facility] Beam on 01-29-2025 Erythrocyte distribution width (RBC) [Ratio] 40.0 fl 35.1-43.9 [facility] Glomerular filtration rate ( GFR) estimation/1.73 sq m using serum, plasma, or whole bOrdered By: [facility] on 01-29-2025 GFR/1.73 sq M.predicted among non-blacks MDRD (S/P/Bld) [Vol rate/Area] 121 mL/min/{1.73_m2} >60 [facility] Comment on above: mL/min/1.73m2 CKD-EP I Creatinine Equation (2020) Hematocrit Auto (Bld) [Volum e fraction]Ordered By: [facility] on 01-29-2025 Hematocrit (Bld) [Volume fraction] 41.7 % 37-47 [facility] Hemoglobin A1con 01-29-2025 HbA1c (Bld) [Mass fraction] 12.3 % High <=5.6 [facility] Comment on above: Result Comment: Norm al < 5.7 % Prediabetic 5.7 - 6.4 % Diabetic >or= 6.5 % Please note range changes. Performed By: #### L 501.9985, L501.9520, L100.0100, L500.4100, L500.4050, L502.0250 #### [facility] [address] [place], [address] Hemoglobin A1c percentageOrd ered By: [facility] Jim[facility] on 01-29-2025 HbA1c (Bld) [Mass fraction] 12.3 % High <5.7 [facility] Comment on above: Normal < 5.7 % Predi abetic 5.7 - 6.4 % Diabetic >or= 6.5 % Please note range changes. Hemoglobin measurementOrdere d By: [facility] on 01-29-2025 Hemoglobin (Bld) [Mass/Vol] 14.4 g/dL 12.0-15.0 [facility] Immature granulocytes/100 WB C Auto (Bld)Ordered By: [facility] on 01-29-2025 Immature granulocytes/100 WBC (Bld) 0.200 % 0.0-0.9 [facility] Comment on above: IG% - Immature Granu locytes (promyelocytes, myelocytes and metamyelocytes) > 1% indicates that a LEFT SHIFT is Present. LDL calc ser/plasOrdered By: [facility] on 01-29-2025 Cholesterol in LDL [Mass/Vol] 176 mg/dL [facility] Comment on above: Qrjsdztmfg=176-376 m g/dL & Higher Qytb=454 mg/dL or greaterFriedwald Equation for LDL-C Laboratory - Chemistry and C hemistry - challengeOrdered By: [facility] on 01-29-2025 AST [Catalytic activity/Vol] 17 U/L <32 [facility] Lipid Profileon 01-29-2025 CHOL:HDL 4.67 Normal [facility] Comment on above: Performed By: #### L 501.9985, L501.9520, L100.0100, L500.4100, L500.4050, L502.0250 ####[facility] [address] [place], [address] Cholesterol [Mass/Vol] 246 mg/dL High <=200 [facility] Comment on above: Result Comment: Chol esterol level, Desirable <200 mg/dL Borderline high cholesterol 200-239 mg/dL High cholesterol >=240 mg/dL Recommendations of the NCEP Adult Treatment Panel for the following risk-cutoff thresholds for the [place] population. Performed By: #### L 501.9985, L501.9520, L100.0100, L500.4100, L500.4050, L502.0250 ####[facility] [address] [place], [address] Cholesterol in HDL [Mass/Vol] 53 mg/dL Normal [facility] Comment on above: Result Comment: Mai onal Cholesterol Education Program (NCEP) guidelines: <40 mg/dL: Low HDL-cholesterol (major risk factor for CHD) >= 60 mg/dL: High HDL-cholesterol (negative risk factor for CHD) HDL-cholesterol is affected by a number of factors, e.g. smoking, exercise, hormones, sex and age. Performed By: #### L 501.9985, L501.9520, L100.0100, L500.4100, L500.4050, L502.0250 ####[facility] [address] [place], [address] Cholesterol in LDL [Mass/Vol] 176 mg/dL Normal [facility] Comment on above: Result Comment: Bord oqyjzl=585-823 mg/dL Higher Remx=112 mg/dL or greater Friedwald Equation for LDL-C Performed By: #### L 501.9985, L501.9520, L100.0100, L500.4100, L500.4050, L502.0250 ####[facility] [address] [place], [address] Cholesterol in VLDL [Mass/Vol] 17 mg/dL Normal 5-40 [facility] Comment on above: Performed By: #### L 501.9985, L501.9520, L100.0100, L500.4100, L500.4050, L502.0250 ####[facility] [address] [place], [address] Triglyceride [Mass/Vol] 86 mg/dL Normal [facility] Comment on above: Result Comment: The drugs N-Acetylcysteine and Metamizole may falsely depress this assay. Normal range: <150 mg/dL Borderline High: 150-199 mg/dL High: 200-499 mg/dL Very High: >500 mg/dL Performed By: #### L 501.9985, L501.9520, L100.0100, L500.4100, L500.4050, L502.0250 ####[facility] [address] [place], [place], [id number] MCV (mean corpuscular volume ) determinationOrdered By: Zebulun Beam on 01-29-2025 MCV (RBC) [Entitic vol] 86.3 fL 81-99 [facility] Mean corpuscular hemoglobin (MCH) determinationOrdered By: Zebulun Beam on 01-29-2025 MCH (RBC) [Entitic mass] 29.8 pg 27.0-32.0 [facility] Mean corpuscular hemoglobin concentration (MCHC) determinationOrdered By: Zebulun Beam on 01-29-2025 MCHC (RBC) [Mass/Vol] 34.5 g/dL 32-36 [facility] Mean platelet volume determi nationOrdered By: Zebulun Beam on 01-29-2025 Platelet mean volume (Bld) [Entitic vol] 11.3 fL 6.2-12.0 [facility] Microalb:Creat Ratio,Random URon 01-29-2025 Creatinine [Mass/Vol] 58.40 mg/dL Normal 28.00-217.00 [facility] Comment on above: Performed By: #### L 501.9985, L501.9520, L100.0100, L500.4100, L500.4050, L502.0250 ####[facility] [address] [place], [address] MALB:CREAT UNABLE TO CALCULATE Normal <30 mg/g CRE [facility] Comment on above: Performed By: #### L 501.9985, L501.9520, L100.0100, L500.4100, L500.4050, L502.0250 ####[facility] [address] [place], [address] MICROALBUMIN,UR < 12.0 Normal <20 mg/L [facility] Comment on above: Performed By: #### L 501.9985, L501.9520, L100.0100, L500.4100, L500.4050, L502.0250 ####[facility] [address] [place], [address] Microalbumin/creat ratio urO rdered By: Cruz Jimenez on 01-29-2025 Urine microalbumin/creatinine ratio measurement UNABLE TO CALCULATE mg/g CRE <30 [facility] Monocyte percentageOrdered B y: Zebulun Beam on 01-29-2025 Monocytes/100 WBC (Bld) 7.3 % 0-10 [facility] Neutrophil percentageOrdered By: Cruz Beam on 01-29-2025 Neutrophils/100 WBC (Bld) 62.4 % 47-70 [facility] Nucleated red blood cell per centageOrdered By: Fredin Beam on 01-29-2025 Nucleated RBC/100 WBC (Bld) [Ratio] 0 % 0-5 [facility] Platelet countOrdered By: Jasmeet Jimenez on 01-29-2025 Platelets (Bld) [#/Vol] 277 10*3/uL 150-450 [facility] Potassium measurement (mass/ volume)Ordered By: Cruz Jimenez on 01-29-2025 Potassium (Unsp spec) [Mass/Vol] 3.9 mmol/L 3.3-5.1 [facility] RBC Auto (Bld) [#/Vol]Ordere d By: Tariqlueileen Beam on 01-29-2025 RBC (Bld) [#/Vol] 4.83 10*6/uL 4.2-5.4 [facility] Random urine creatinine nir urement (mass/volume)Ordered By: Cruz Jimenez on 01-29-2025 Creatinine Unsp time (U) [Mass/Vol] 58.40 mg/dL 28.00-217.00 [facility] Screening total cholesterol/ high density lipoprotein (HDL) cholesterol ratioOrdered By: Cruz Jimenez on 01-29-2025 Cholesterol.total/Nicolasa sterol in HDL [Mass ratio] 4.67 {ratio} [facility] Serum creatinine measurement (mass/volume)Ordered By: Cruz Jimenez on 01-29-2025 Creatinine [Mass/Vol] 0.55 mg/dL Low 0.70-1.20 [facility] Serum globulin measurementOr dered By: Cruz Jimenez on 01-29-2025 Globulin (S) [Mass/Vol] 3.0 g/dL 2.2-4.2 [facility] Serum glucose measurement (m ass/volume)Ordered By: Cruz Jimenez on 01-29-2025 Glucose [Mass/Vol] 320 mg/dL High 70-99 [facility] Serum or plasma alanine cruz otransferase (ALT) measurementOrdered By: Cruz Jimenez on 01-29-2025 ALT [Catalytic activity/Vol] 22 U/L <35 [facility] Serum or plasma albumin nir urement (mass/volume)Ordered By: Cruz Jimenez on 01-29-2025 Albumin [Mass/Vol] 4.1 g/dL 3.5-5.0 [facility] Serum or plasma albumin/glob ulin mass ratioOrdered By: Cruz Jimenez on 01-29-2025 Albumin/Globulin [Mass ratio] 1.4 {ratio} 0.9-2.4 [facility] Serum or plasma alkaline jose sphatase measurementOrdered By: Cruz Jimenez on 01-29-2025 ALP [Catalytic activity/Vol] 115 U/L High 35-104 [facility] Serum or plasma calcium nir urement (mass/volume)Ordered By: Cruz Jimenez on 01-29-2025 Calcium [Mass/Vol] 9.0 mg/dL 7.6-11.0 [facility] Serum or plasma cholesterol in HDL measurement (mass/volume)Ordered By: Cruz Jimenez on 01-29-2025 Cholesterol in HDL [Mass/Vol] 53 mg/dL >40 [facility] Comment on above: National Cholesterol Education Program (NCEP) guidelines:<40 mg/dL: Low HDL-cholesterol (major risk factor for CHD)>= 60 mg/dL: High HDL-cholesterol (negative risk factor for CHD)HDL-cholesterol is affected by a number of factors, e.g. smoking, exercise, hormones, sex and age. Serum or plasma cholesterol measurement (mass/volume)Ordered By: Cruz Jimenez on 01-29-2025 Cholesterol [Mass/Vol] 246 mg/dL High <201 [facility] Comment on above: Cholesterol level, D esirable <200 mg/dLBorderline high cholesterol 200-239 mg/dLHigh cholesterol >=240 mg/dLRecommendations of the NCEP Adult Treatment Panel for the following risk-cutoff thresholds for the [place] population. Serum or plasma urea nitroge n measurement (mass/volume)Ordered By: Cruz Jimenez on 01-29-2025 Urea nitrogen [Mass/Vol] 4 mg/dL 4-19 [facility] Sodium levelOrdered By: Tariq Jimenez on 01-29-2025 Sodium [Moles/Vol] 135 mmol/L 133-145 [facility] TSH DL <= 0.005 mIU/L QnOrde red By: Cruz Jimenez on 01-29-2025 TSH Qn 1.260 uIU/mL 0.300-4.200 [facility] Thyroid Stim Hormone (TSH)on 01-29-2025 TSH 1.260 uIU/mL Normal 0.300-4.200 [facility] Comment on above: Performed By: #### L 501.9985, L501.9520, L100.0100, L500.4100, L500.4050, L502.0250 ####[facility] [address] [place], [address] Total proteinOrdered By: Gene Jimenez on 01-29-2025 Protein [Mass/Vol] 7.1 g/dL 5.9-8.4 [facility] Triglycerides measurementOrd ered By: Cruz Jimenez on 01-29-2025 Triglyceride [Mass/Vol] 86 mg/dL <199 [facility] Comment on above: The drugs N-Acetylcy steine and Metamizole may falsely depress this assay. Normal range: <150 mg/dLBorderline High: 150-199 mg/dLHigh: 200-499 mg/dLVery High: >500 mg/dL Urine albumin measurement [facility] detection limit of 20 mg/L or less (mass/volume)Ordered By: Cruz Jimenez on 01-29-2025 Albumin DL <= 20 mg/L (U) [Mass/Vol] < 12.0 mg/L <20 mg/L [facility] White blood cell (WBC) count Ordered By: Cruz Jimenez on 01-29-2025 WBC (Bld) [#/Vol] 8.1 10*3/uL 4.4-11.0 [facility] Emergency Department Summary on 12-09-2024 Emergency Department Summary [facility] Medical Records Department [address] [place] [address] Emergency Department Summary 12/09/24 MR#: [id number] Acct: [id number] Name: MONIQUE ACEVEDO Rep #: [id number] : 1985 39 From: Jatin Tolliver MD PCP: Gideon Alford NP-C Status:REG ER Location: ED HPI HPI - Fall History of Present Illness Chief Complaint: Fall Narrative Narrative: 39-year-old female presents with injury to her left knee and low back that she sustained this morning at 8 AM, approximately 12 hours ago when she fell down the basement stairs. There is a loose stair and she only fell down 3 or 4 stairs. No hitting of her head or loss of consciousness. She was able to get up and go about her day, however things started tightening up. She states that she was unable to get up at 1 point because of pain in her posterior knee. She may have felt a pop in that area. Additionally, she has pain in her low back is worse with movement where she hit it against the stairs. She denies other injuries. [facility] Medical History Contact with and (suspected) exposure [...] 11/03/24 Unknown Rx mg-trimethoprim 160 mg tablet cyclobenzaprine 10 mg tablet 10 mg PO TID PRN Muscle Spasm #20 12/09/24 Unknown Rx TABLETS naproxen 500 mg tablet (Naprosyn) 500 mg PO BID PRN pain #20 tabs 0 12/09/24 Unknown Rx Allergy/AdvReac Type Severity Reaction Status Date / Time No Known Allergies Allergy Verified 12/09/24 19:55 Surgical History History of Social History Smoking Status: Current every day smoker tobacco type: cigarettes alcohol intake: never ROS ROS ED ROS Narrative Review of systems positive for low back pain worse with movement, left posterior knee pain also worse with movement. Positive spasming of left lower extremity. Denies other injuries. No loss of bowel or bladder. No hitting of head, no loss of consciousness. EXAM Physical Exam Narrative Exam Narrative: GCS 15. ABCs are intact. Cardiovascular examination reveals mild tachycardia just above 100 bpm. Lungs are clear to auscultation bilaterally. Abdomen is soft and nontender with normoactive bowel sounds. Mild tenderness to palpation diffusely lumbar spine area. No noted ecchymosis. No bony step-off. She is neurovascular tact of the bilateral lower extremities, EHL intact bilaterally. Diffuse tenderness to palpation left knee both anteriorly and posteriorly, no noted ecchymosis. Palpable dorsalis pedis pulse, left. Const Vital Signs: 12/09/24 19:55 12/09/24 20:09 Temperature 98.1 F Temperature Source Oral Pulse Rate 109 H Respiratory Rate 18 Respiratory Effort Normal Non-Labored Respiratory Depth Normal Respiratory Pattern Normal Blood Pressure 134/95 H Blood Pressure Mean 108 Pulse Ox 98 Oxygen Delivery Method Room Air MDM MDM MDM Narrative Medical decision making narrative: Differential diagnosis includes but not limited to fracture of lumbar spine including compression fracture versus contusion versus vertebral process fracture. She may have more of a knee contusion or internal derangement of the left knee versus muscle strain versus spasm. Patient has had bilateral tubal ligation and states she is not . She was administered Toradol and Norflex initially intramuscularly for analgesia and x-rays were obtained of the lumbar spine and of the left knee. My individual interpretation of the x-rays of the lumbar spine, there is no evidence of acute fracture. I reviewed the radiology report which confirms my independent interpretation. Additionally on my individual interpretation of the left knee, no fracture or effusion. Once again I reviewed the radiology report which confirms my independent interpretation. Upon repeat examination, she states she feels more relaxed but is still having some pain in the posterior aspect of her left knee. She is able to raise her leg directly off the bed so I do not suspect a quadriceps tendon rupture. She will be placed in an Kyle wrap. She states that she has her mother's walker that she can use and d (more content not included)... Normal [facility] Knee 4 or More Viewson 12-09 Knee 4 or More Views [facility] Imaging Services [address] [place] [address] Knee 4 or More Views MR#: [id number] Acct: [id number] Name: MONIQUE ACEVEDO Rep #: [id number] : 1985 F 39 From: Mynor Gallego MD PCP: Gideon Alford NP-C Status: REG ER Study: Knee 4 or More Views Date of Exam: 12/09/24 Exam# [id number] Ordering Dr: Jatin Tolliver MD PROCEDURE: KNEE 4 OR MORE VIEWS 12/09/2024 REASON FOR EXAM: TRAUMA TECHNIQUE: KNEE 4 OR MORE VIEWS COMPARISON: No FINDINGS: No fracture, dislocation, or joint effusion. No degeneration. RAD/Knee 4 or More Views IMPRESSION: Normal exam Reading Location: RAD-GALLE[facility]-2 CC: 3D MODELER-C Gideon Alford; Dr. Jatin Tolliver MD Guest Attendant: Signed Normal [facility] Lumbar Spine 2 or 3 Viewson 12-09-2024 Lumbar Spine 2 or 3 Views [facility] Services [address] [place] [address] Lumbar Spine 2 or 3 Views MR#: [id number] Acct: [id number] Name: MONIQUE ACEVEDO Rep #: [id number] : 1985 F 39 From: Mynor Gallego MD PCP: SONIA Lopez Status: REG ER Study: Lumbar Spine 2 or 3 Views Date of Exam: Exam# [id number] Ordering Dr: Jatin Tolliver MD PROCEDURE: LUMBAR SPINE 2 OR 3 VIEWS 12/09/2024 REASON FOR EXAM: TRAUMA TECHNIQUE: LUMBAR SPINE 2 OR 3 VIEWS COMPARISON: No FINDINGS: Mild lumbosacral scoliosis. Very mild lower lumbar spine degeneration, mainly L4 through S1 facet arthritis. Mild L5-S1 disc space narrowing. No acute fracture or dislocation. No soft tissue injury. RAD/Lumbar Spine 2 or 3 Views IMPRESSION: No acute findings Reading Location: [facility]- CC: 3D MODELER-C Gideon Alford; Dr. Jatin Tolliver MD Guest Attendant: Signed Normal [facility] Emergency Department Summary on 11-03-2024 Emergency Department Summary [facility] Medical Records Department [address] [place] [address] Emergency Department Summary 11/03/24 MR#: [id number] Acct: [id number] Name: MONIQUE ACEVEDO Rep #: [id number] : 1985 38 From: Norman Almaguer PCP: SONIA Lopez Status:DEP ER Location: ED HPI History of Present Illness Chief Complaint: Abscess Informant: patient and parent Narrative Narrative: Here with mother increasing swelling left face near the ear, she tried to express it is only bloody drainage. No fever or chills. She is a diabetic. Feels more pressure in the area. Denies history of kidney injury. Prior similar symptoms: No PFSH PFS Medical History Contact with and (suspected) exposure [...] family Case (more content not included)... Normal [facility] Chest PA and Lateralon 05-03 Chest PA and Lateral [facility] Imaging Services [address] [place] [address] [id number] Chest PA and Lateral MR#: [id number] Acct: [id number] Name: MONIQUE ACEVEDO Rep #: [id number] : 1985 F 38 From: Denis Pennington MD PCP: Gideon Alford, 3D MODELER-C Status: REG ER Study: Chest PA and Lateral Date of Exam: 05/03/24 Exam# [id number] Ordering Dr: John Echevarria DO -[id number] EXAM: XR CHEST, 2 VIEWS CLINICAL [...] Pennington MD at 0:27 EST , CC: 3D MODELERKaylie Alford; Dr. John Echevarria DO Guest Attendant: Signed Normal [facility] Emergency Department Summary on 05-03-2024 Emergency Department Summary [facility] Medical Records Department [address] [place] [address] Emergency Department Summary 05/03/24 MR#: [id number] Acct: [id number] Name: MONIQUE ACEVEDO Rep #: [id number] : 1985 38 From: John Echevarria DO PCP: SONIA Lopez Status:REG ER Location: ED HPI History of Present Illness Chief Complaint: Shortness of Breath [facility] Medical History (Updated 05/04/24 @ 00:[address] John Echevarria DO) Contact with and (suspected) exposure to other viral communicable diseases Acute pharyngitis, unspecified Acute bronchitis, unspecified Sebaceous cyst of left axilla Encounter for screening for COVID-19 Home Medications ???Medication ???Instructions ???Recorded ???Last Taken ???Type ibuprofen 600 mg tablet 600 mg PO Q6H PRN PRN Pain Score 10/10/20 Unknown Rx -02/22 #20 tabs albuterol sulfate 90 mcg/actuation 2 [...] chest pain. Notes she works as a [employer] and has been exposed to COVID and [...] History obtained from others: none Consults: none [facility] Narrative: Patient was initially hemodynamically stable, [...] COVID flu (more content not included)... Normal [facility] .Auto Diffon 03-24-2023 Basophil, Absolute 0.0 10 3/mcL Normal 0.0-0.2 [facility] ([place]) Comment on above: Performed By: #### C HANS BUTLER, AMRIT, ADIFF, CMP, GFR #### [address] [address] Basophils/100 WBC (Bld) 0.2 % Normal 0.0-2.5 [facility] ([place]) Comment on above: Performed By: #### C HANS BUTLER, AMRIT, ADIFF, CMP, GFR #### [address] [address] Eosinophil, Absolute 0.1 10 3/mcL Normal 0.0-0.4 [facility] ([place]) Comment on above: Performed By: #### C HANS BUTLER, AMRIT, ADIFF, CMP, GFR #### [address] [address] Eosinophils/100 WBC (Bld) 1.5 % Normal 0.0-7.0 [facility] ([place]) Comment on above: Performed By: #### C HANS BUTLER, ANEU, ADIFF, CMP, GFR #### [address] [address] Lymphocyte, Absolute 2.1 10 3/mcL Normal 0.8-3.9 [facility] ([place]) Comment on above: Performed By: #### C HANS BUTLER, ANEU, ADIFF, CMP, GFR #### [address] [address] Lymphocytes/100 WBC (Bld) 32.4 % Normal 10.0-50.0 [facility] ([place]) Comment on above: Performed By: #### C HANS BUTLER, ANEU, ADIFF, CMP, GFR #### [address] [address] Monocyte, Absolute 0.6 10 3/mcL Normal 0.2-1.0 [facility] ([place]) Comment on above: Performed By: #### C HANS BULTER, ANEU, ADIFF, CMP, GFR #### [address] [address] Monocytes/100 WBC (Bld) 8.7 % Normal 1.7-13.0 [facility] ([place]) Comment on above: Performed By: #### C HANS BUTLER, ANEU, ADIFF, CMP, GFR #### [address] [address] Neutrophils/100 WBC (Bld) 57.2 % Normal 37.0-80.0 [facility] ([place]) Comment on above: Performed By: #### HANS SCHWARTZ, ANEU, ADIFF, CMP, GFR #### [address] [address] .GFRon 03-24-2023 GFR Non- 78 ml/min/1.73sqm Normal [facility] ([place]) Comment on above: Result Comment: GFR Population [...] meters Performed By: #### C HANS BUTLER, AMRIT ADIFF, CMP, GFR #### [address] [address] GFR 94 ml/min/1.73sqm Normal [facility] ([place]) Comment on above: Result Comment: GFR Population [...] meters Performed By: #### C HANS BUTLER, JUAQUIN MARCUS, CMP, GFR #### [address] [address] .NEUABSon 03-24-2023 Neutrophil, Absolute 3.8 10 3/mcL Normal 2.9-6.2 [facility] ([place]) Comment on above: Performed By: #### C HANS BUTLER, AMRIT ADIFF, CMP, GFR #### [address] [address] A1Con 03-24-2023 HbA1c (Bld) [Mass fraction] 10.4 % High 4.3-6.4 [facility] ([place]) Comment on above: Performed By: #### C HANS BUTLER, ANEU, ADIFF, CMP, GFR #### [address] [address] BMPon 03-24-2023 BUN/Creatinine Ratio 7 ratio Normal 7-27 [facility] ([place]) Comment on above: Performed By: #### HANS SCHWARTZ, AMRIT, ADIFF, CMP, GFR #### [address] [address] Calcium [Mass/Vol] 8.2 mg/dL Low 8.4-10.2 [facility] ([place]) Comment on above: Performed By: #### HANS SCHWARTZ, AMRIT, ADIFF, CMP, GFR #### [place] [id number] Chloride [Moles/Vol] 101 mmol/L Normal 98-107 [facility] ([place]) Comment on above: Performed By: #### HANS SCHWARTZ, AMRIT, ADIFF, CMP, GFR #### [address] [address] CO2 [Moles/Vol] 29 mmol/L Normal 22-29 [facility] ([place]) Comment on above: Performed By: #### HANS SCHWARTZ, AMRIT, ADIFF, CMP, GFR #### [address] [address] Creatinine [Mass/Vol] 0.83 mg/dL Normal 0.55-1.02 [facility] ([place]) Comment on above: Performed By: #### HANS SCHWARTZ, AMRIT, ADIFF, CMP, GFR #### [address] [address] Electrolyte Balance 9.0 mEq/L Normal 4.0-15.0 [facility] ([place]) Comment on above: Performed By: #### HANS SCHWARTZ, ANEU, ADIFF, CMP, GFR #### [address] [address] Glucose [Mass/Vol] 258 mg/dL High 70-105 [facility] ([place]) Comment on above: Performed By: #### HANS SCHWARTZ, ANEU, ADIFF, CMP, GFR #### [address] [address] Potassium [Moles/Vol] 4.0 mmol/L Normal 3.5-5.1 [facility] ([place]) Comment on above: Performed By: #### HANS SCHWARTZ, ANEU, ADIFF, CMP, GFR #### [address] [address] Sodium [Moles/Vol] 139 mmol/L Normal 136-145 [facility] ([place]) Comment on above: Performed By: #### HANS SCHWARTZ, ANEU, ADIFF, CMP, GFR #### [place] [address] Urea nitrogen [Mass/Vol] 6 mg/dL Low 7-18 [facility] ([place]) Comment on above: Performed By: #### HANS SCHWARTZ, AMRIT, ADIFF, CMP, GFR #### [place] [id number] CBCon 03-24-2023 Erythrocyte distribution width (RBC) [Ratio] 13.7 % Normal 11.5-14.5 [facility] ([place]) Comment on above: Performed By: #### HANS SCHWARTZ, AMRIT, ADIFF, CMP, GFR #### [address] [address] Hematocrit (Bld) [Volume fraction] 37.9 % Normal 37.0-47.0 [facility] ([place]) Comment on above: Performed By: #### HANS SCHWARTZ, AMRIT, ADIFF, CMP, GFR #### [address] [address] Hgb 12.6 G/dL Normal 12.0-16.0 [facility] ([place]) Comment on above: Performed By: #### HANS SCHWARTZ, ANEU, ADIFF, CMP, GFR #### [address] [address] MCH (RBC) [Entitic mass] 29.7 pg Normal 27.0-31.2 [facility] ([place]) Comment on above: Performed By: #### C HANS BUTLER, ANEU, ADIFF, CMP, GFR #### [address] [address] MCHC 33.3 G/dL Normal 33.0-37.0 [facility] ([place]) Comment on above: Performed By: #### HANS SCHWARTZ, ANEU, ADIFF, CMP, GFR #### [address] [address] MCV (RBC) [Entitic vol] 89.2 fL Normal 80.0-94.0 [facility] ([place]) Comment on above: Performed By: #### HANS SCHWARTZ, AMRIT, ADIFF, CMP, GFR #### [address] [address] Platelet 202 10 3/mcL Normal 130-400 [facility] ([place]) Comment on above: Performed By: #### HANS SCHWARTZ, AMRIT, ADIFF, CMP, GFR #### [address] [address] Platelet mean volume (Bld) [Entitic vol] 8.9 fL Normal 7.4-10.4 [facility] ([place]) Comment on above: Performed By: #### HANS SCHWARTZ, AMRIT, ADIFF, CMP, GFR #### [address] [address] RBC 4.25 10 6/mcL Normal 4.20-5.40 [facility] ([place]) Comment on above: Performed By: #### HANS SCHWARTZ, ANEU, ADIFF, CMP, GFR #### [address] [address] WBC 6.6 10 3/mcL Normal 4.6-10.8 [facility] ([place]) Comment on above: Performed By: #### HANS SCHWARTZ, ANEU, ADIFF, CMP, GFR #### [address] [address] LABORATORYOrdered By: Josey Medina on 03-24-2023 Blood Glucose Testing Reason Routine (03/24/23 12:16 PM) [facility] Work Phone: Glucose [Mass/Vol] 250 mg/dL [facility] Work Phone: Blood Glucose Testing Reason Routine (03/24/23 10:11 AM) [facility] Work Phone: Glucose [Mass/Vol] 270 mg/dL Invalid Interpretation Code 70 - 110 mg/dL [facility] Work Phone: Blood Glucose Testing Reason Routine (03/24/23 8:38 AM) [facility] Work Phone: Glucose [Mass/Vol] 298 mg/dL [facility] Work Phone: LABORATORYOrdered By: Tia Ferguson on 03-24-2023 Glucose [Mass/Vol] 250 mg/dL Invalid Interpretation Code 70 - 110 mg/dL [facility] Work Phone: Glucose [Mass/Vol] 298 mg/dL Invalid Interpretation Code 70 - 110 mg/dL [facility] Work Phone: LABORATORYOrdered By: SYSTEM SYSTEM [...] 03-24-2023 Magnesium [Mass/Vol] 1.7 mg/dL Low 1.8-2.4 [facility] ([place]) Comment on above: Performed By: #### C CARRIE, HANS, ANEU, ADIFF, CMP, GFR #### [facility] [place] [address] [place] [address] .Auto Diffon 03-23-2023 Basophil, Absolute 0.0 10 3/mcL Normal 0.0-0.2 [facility] ([place]) Comment on above: Performed By: #### A DIFF, MG, GFR, CBC, BMP, ANEU ####[facility] [address] [address] Basophils/100 WBC (Bld) 0.3 % Normal 0.0-2.5 [facility] ([place]) Comment on above: Performed By: #### A DIFF, MG, GFR, CBC, BMP, ANEU ####[facility] [address] [address] Eosinophil, Absolute 0.1 10 3/mcL Normal 0.0-0.4 [facility] ([place]) Comment on above: Performed By: #### A DIFF, MG, GFR, CBC, BMP, ANEU ####[address] [address] Eosinophils/100 WBC (Bld) 1.7 % Normal 0.0-7.0 [facility] ([place]) Comment on above: Performed By: #### A DIFF, MG, GFR, CBC, BMP, ANEU ####[place] [address] [address] Lymphocyte, Absolute 2.6 10 3/mcL Normal 0.8-3.9 [facility] ([place]) Comment on above: Performed By: #### A DIFF, MG, GFR, CBC, BMP, ANEU ####[place] [address] [address] Lymphocytes/100 WBC (Bld) 30.5 % Normal 10.0-50.0 [facility] ([place]) Comment on above: Performed By: #### A DIFF, MG, GFR, CBC, BMP, ANEU ####[place] [place], [place] [address] Monocyte, Absolute 0.6 10 3/mcL Normal 0.2-1.0 [facility] ([place]) Comment on above: Performed By: #### A DIFF, MG, GFR, CBC, BMP, ANEU ####[place] [place], [place] [address] Monocytes/100 WBC (Bld) 7.2 % Normal 1.7-13.0 [facility] ([place]) Comment on above: Performed By: #### A DIFF, MG, GFR, CBC, BMP, ANEU ####[place] [place], [place] [address] Neutrophils/100 WBC (Bld) 60.3 % Normal 37.0-80.0 [facility] ([place]) Comment on above: Performed By: #### A DIFF, MG, GFR, CBC, BMP, ANEU ####[place] [place], [place] [address] .GFRon 03-23-2023 GFR 103 ml/min/1.73sqm Normal [facility] ([place]) Comment on above: Result Comment: GFR Population [...] DIFF, MG, GFR, CBC, BMP, ANEU ####[place] [address] [place], [place] [address] GFR Non- 85 ml/min/1.73sqm Normal [facility] ([place]) Comment on above: Result Comment: GFR Population [...] A DIFF, MG, GFR, CBC, BMP, ANEU ####[place] [address] [place], [place] [address] .NEUABSon 03-23-2023 Neutrophil, Absolute 5.2 10 3/mcL Normal 2.9-6.2 [facility] ([place]) Comment on above: Performed By: #### A DIFF, MG, GFR, CBC, BMP, ANEU ####[place] [address] [place], [place] [address] BMPon 03-23-2023 BUN/Creatinine Ratio 6 ratio Low 7-27 [facility] ([place]) Comment on above: Performed By: #### A DIFF, MG, GFR, CBC, BMP, ANEU ####[place] [address] [place], [place] [address] Calcium [Mass/Vol] 8.2 mg/dL Low 8.4-10.2 [facility] ([place]) Comment on above: Performed By: #### A DIFF, MG, GFR, CBC, BMP, ANEU ####[place] [address] [place], [place] [address] Chloride [Moles/Vol] 102 mmol/L Normal 98-107 [facility] ([place]) Comment on above: Performed By: #### A DIFF, MG, GFR, CBC, BMP, ANEU ####[place] [address] [place], [place] [address] CO2 [Moles/Vol] 26 mmol/L Normal 22-29 [facility] ([place]) Comment on above: Performed By: #### A DIFF, MG, GFR, CBC, BMP, ANEU ####[place] [address] [place], [place] [address] Creatinine [Mass/Vol] 0.77 mg/dL Normal 0.55-1.02 [facility] ([place]) Comment on above: Performed By: #### A DIFF, MG, GFR, CBC, BMP, ANEU ####[place] [address] [place], [place] [address] Electrolyte Balance 10.0 mEq/L Normal 4.0-15.0 [facility] ([place]) Comment on above: Performed By: #### A DIFF, MG, GFR, CBC, BMP, ANEU ####[place] [address] [place], [place] [address] Glucose [Mass/Vol] 191 mg/dL High 70-105 [facility] ([place]) Comment on above: Performed By: #### A DIFF, MG, GFR, CBC, BMP, ANEU ####[place] [address] [place], [place] [address] Potassium [Moles/Vol] 4.1 mmol/L Normal 3.5-5.1 [facility] ([place]) Comment on above: Performed By: #### A DIFF, MG, GFR, CBC, BMP, ANEU ####[place] [address] [place], [place] [address] Sodium [Moles/Vol] 138 mmol/L Normal 136-145 [facility] ([place]) Comment on above: Performed By: #### A DIFF, MG, GFR, CBC, BMP, ANEU ####[place] [address] [place], [place] [address] Urea nitrogen [Mass/Vol] 5 mg/dL Low 7-18 [facility] ([place]) Comment on above: Performed By: #### A DIFF, MG, GFR, CBC, BMP, ANEU ####[address] [address] CBCon 03-23-2023 Erythrocyte distribution width (RBC) [Ratio] 13.8 % Normal 11.5-14.5 [facility] ([place]) Comment on above: Performed By: #### A DIFF, MG, GFR, CBC, BMP, ANEU ####[place] [address] [place], [place] [address] Hematocrit (Bld) [Volume fraction] 39.4 % Normal 37.0-47.0 [facility] ([place]) Comment on above: Performed By: #### A DIFF, MG, GFR, CBC, BMP, ANEU ####[place] [address] [place], [place] [address] Hgb 13.3 G/dL Normal 12.0-16.0 [facility] ([place]) Comment on above: Performed By: #### A DIFF, MG, GFR, CBC, BMP, ANEU ####[place] [address] [place], [place] [address] MCH (RBC) [Entitic mass] 29.6 pg Normal 27.0-31.2 [facility] ([place]) Comment on above: Performed By: #### A DIFF, MG, GFR, CBC, BMP, ANEU ####[address] [address] MCHC 33.8 G/dL Normal 33.0-37.0 [facility] ([place]) Comment on above: Performed By: #### A DIFF, MG, GFR, CBC, BMP, ANEU ####[facility] [place], [place] [address] MCV (RBC) [Entitic vol] 87.7 fL Normal 80.0-94.0 [facility] ([place]) Comment on above: Performed By: #### A DIFF, MG, GFR, CBC, BMP, ANEU ####[facility] [place], [place] [address] Platelet 235 10 3/mcL Normal 130-400 [facility] ([place]) Comment on above: Performed By: #### A DIFF, MG, GFR, CBC, BMP, ANEU ####[place] [address] [place], [place] [address] Platelet mean volume (Bld) [Entitic vol] 8.9 fL Normal 7.4-10.4 [facility] ([place]) Comment on above: Performed By: #### A DIFF, MG, GFR, CBC, BMP, ANEU ####[place] [place], [place] [address] RBC 4.49 10 6/mcL Normal 4.20-5.40 [facility] ([place]) Comment on above: Performed By: #### A DIFF, MG, GFR, CBC, BMP, ANEU ####[place] [place], [place] [address] WBC 8.6 10 3/mcL Normal 4.6-10.8 [facility] ([place]) Comment on above: Performed By: #### A DIFF, MG, GFR, CBC, BMP, ANEU ####[place] [place], [place] [address] LABORATORYOrdered By: Brenna Maria on 03-23-2023 Appearance [...] 03-23-2023 Magnesium [Mass/Vol] 1.5 mg/dL Low 1.8-2.4 [facility] ([place]) Comment on above: Performed By: #### A DIFF, MG, GFR, CBC, BMP, ANEU ####[address] [address] UAon 03-23-2023 Color (U) Yellow Normal [facility] ([place]) Comment on above: Performed By: #### C HANS BUTLER, ANEU, ADIFF, CMP, GFR #### [address] [address] Glucose (U) [Mass/Vol] Negative Normal Negative [facility] ([place]) Comment on above: Performed By: #### C HANS BUTLER, ANEU, ADIFF, CMP, GFR #### [address] [address] Ketones Ql (U) Negative Normal Negative [facility] ([place]) Comment on above: Performed By: #### C HANS BUTLER, ANEU, ADIFF, CMP, GFR #### [address] [address] UA Appear Clear Normal Clear [facility] ([place]) Comment on above: Performed By: #### C HANS BUTLER, ANEU, ADIFF, CMP, GFR #### [address] [address] UA Blood Negative Normal Negative [facility] ([place]) Comment on above: Performed By: #### HANS SCHWARTZ, ANEU, ADIFF, CMP, GFR #### [address] [address] UA Leuk Est Negative Normal Negative [facility] ([place]) Comment on above: Performed By: #### C HANS BUTLER, ANEU, ADIFF, CMP, GFR #### [address] [address] UA Nitrite Negative Normal Negative [facility] ([place]) Comment on above: Performed By: #### C HANS BUTLER, ANEU, ADIFF, CMP, GFR #### [address] [address] UA pH 7.0 Normal 5.0 - 8.0 [facility] ([place]) Comment on above: Performed By: #### HANS SCHWARTZ, ANEU, ADIFF, CMP, GFR #### [address] [address] UA Protein Negative Normal Negative [facility] ([place]) Comment on above: Performed By: #### HANS SCHWARTZ, ANEU, ADIFF, CMP, GFR #### [address] [address] UA Spec Grav 1.015 Normal 1.015-1.025 [facility] ([place] Comment on above: Performed By: #### C HANS BUTLER, ANEU, ADIFF, CMP, GFR #### [address] [address] UA Specimen Type Clean Catch Normal [facility] ([place] Comment on above: Performed By: #### HANS SCHWARTZ, ANEU, ADIFF, CMP, GFR #### [address] [address] UA Urobilinogen 0.2 E.U./dL Normal 0.2-1.0 [facility] ([place] Comment on above: Performed By: #### HANS SCHWARTZ, ANEU, ADIFF, CMP, GFR #### [address] [address] Urobilinogen (U) [Mass/Vol] Negative Normal Negative [facility] ([place] Comment on above: Performed By: #### HANS SCHWARTZ, ANEU, ADIFF, CMP, GFR #### [address] [address] .Auto Diffon 03-22-2023 Basophil, Absolute 0.0 10 3/mcL Normal 0.0-0.2 [facility]) Comment on above: Performed By: #### HANS SCHWARTZ, ANEU, ADIFF, CMP, GFR #### [address] [address] Basophils/100 WBC (Bld) 0.4 % Normal 0.0-2.5 [facility] ([place]) Comment on above: Performed By: #### HANS SCHWARTZ, ANEU, ADIFF, CMP, GFR #### [address] [address] Eosinophil, Absolute 0.2 10 3/mcL Normal 0.0-0.4 [facility] ([place] Comment on above: Performed By: #### HANS SCHWARTZ, ANEU, ADIFF, CMP, GFR #### [address] [address] Eosinophils/100 WBC (Bld) 2.1 % Normal 0.0-7.0 [facility] ([place] Comment on above: Performed By: #### HANS SCHWARTZ, ANEU, ADIFF, CMP, GFR #### [address] [address] Lymphocyte, Absolute 2.1 10 3/mcL Normal 0.8-3.9 [facility] ([place] Comment on above: Performed By: #### C HANS BUTLER, ANEU, ADIFF, CMP, GFR #### [address] [address] Lymphocytes/100 WBC (Bld) 19.3 % Normal 10.0-50.0 [facility] ([place] Comment on above: Performed By: #### C HANS BUTLER, ANEU, ADIFF, CMP, GFR #### [address] [address] Monocyte, Absolute 0.9 10 3/mcL Normal 0.2-1.0 [facility] ([place]) Comment on above: Performed By: #### C HANS BUTLER, ANEU, ADIFF, CMP, GFR #### [address] [address] Monocytes/100 WBC (Bld) 8.0 % Normal 1.7-13.0 [facility] ([place]) Comment on above: Performed By: #### C HANS BUTLER, ANEU, ADIFF, CMP, GFR #### [address] [address] Neutrophils/100 WBC (Bld) 70.2 % Normal 37.0-80.0 [facility] ([place] Comment on above: Performed By: #### HANS SCHWARTZ, ANEU, ADIFF, CMP, GFR #### [address] [address] .GFRon 03-22-2023 GFR 113 ml/min/1.73sqm Normal [facility] ([place] Comment on above: Result Comment: GFR Population [...] HANS BUTLER, ANEU, ADIFF, CMP, GFR #### [address] [address] GFR Non- 93 ml/min/1.73sqm Normal [facility] ([place] Comment on above: Result Comment: GFR Population [...] HANS BUTLER, ANEU, ADIFF, CMP, GFR #### [place] [id number] .MDWon 03-22-2023 Monocyte Distribution Width 19.43 Normal 0.00-20.00 [facility] ([place] Comment on above: Result Comment: For ED adult patients suspected of sepsis, MDW<=20.0 does not rule out sepsis or risk of sepsis Performed By: #### C HANS BUTLER, ANEU, ADIFF, CMP, GFR #### [address] [address] .NEUABSon 03-22-2023 Neutrophil, Absolute 7.7 10 3/mcL High 2.9-6.2 [facility] ([place] Comment on above: Performed By: #### C HANS BUTLER, ANEU, ADIFF, CMP, GFR #### [place] [id number] .Urinalysis Microscopic (AO) on 03-22-2023 UA Bacteria 1+ /hpf Abnormal [facility] ([place] Comment on above: Performed By: #### C HANS BUTLER, AMRIT, ADIFF, CMP, GFR #### [address] [address] UA RBC 5-10 Abnormal None Seen [facility] ([place] Comment on above: Performed By: #### HANS SCHWARTZ, ANEU, ADIFF, CMP, GFR #### [address] [address] UA Squam Epithelial LOADED Abnormal None Seen [facility] ([place] Comment on above: Performed By: #### C HANS BUTLER, AMRIT, ADIFF, CMP, GFR #### [address] [address] UA WBC LOADED Abnormal None Seen [facility] ([place] Comment on above: Performed By: #### C HANS BUTLER, AMRIT, ADIFF, CMP, GFR #### [address] [address] BMPon 03-22-2023 BUN/Creatinine Ratio 11 ratio Normal 7-27 [facility] ([place]) Comment on above: Performed By: #### HANS SCHWARTZ, AMRIT, ADIFF, CMP, GFR #### [address] [address] Calcium [Mass/Vol] 8.9 mg/dL Normal 8.4-10.2 [facility] ([place]) Comment on above: Performed By: #### HANS SCHWARTZ, AMRIT, ADIFF, CMP, GFR #### [address] [address] Chloride [Moles/Vol] 100 mmol/L Normal 98-107 [facility] ([place] Comment on above: Performed By: #### HANS SCHWARTZ, AMRIT, ADIFF, CMP, GFR #### [address] [address] CO2 [Moles/Vol] 24 mmol/L Normal 22-29 [facility] ([place] Comment on above: Performed By: #### HANS SCHWARTZ, AMRIT, ADIFF, CMP, GFR #### [address] [address] Creatinine [Mass/Vol] 0.71 mg/dL Normal 0.55-1.02 [facility] ([place]) Comment on above: Performed By: #### HANS SCHWARTZ, AMRIT, ADIFF, CMP, GFR #### [address] [address] Electrolyte Balance 13.0 mEq/L Normal 4.0-15.0 [facility] ([place]) Comment on above: Performed By: #### HANS SCHWARTZ, AMRIT, ADIFF, CMP, GFR #### [address] [address] Glucose [Mass/Vol] 313 mg/dL High 70-105 [facility] ([place] Comment on above: Performed By: #### HANS SCHWARTZ, AMRIT, ADIFF, CMP, GFR #### [address] [address] Potassium [Moles/Vol] 3.9 mmol/L Normal 3.5-5.1 [facility] ([place]) Comment on above: Performed By: #### HANS SCHWARTZ, AMRIT, ADIFF, CMP, GFR #### [address] [address] Sodium [Moles/Vol] 137 mmol/L Normal 136-145 [facility] ([place] Comment on above: Performed By: #### HANS SCHWARTZ, AMRIT, ADIFF, CMP, GFR #### [address] [address] Urea nitrogen [Mass/Vol] 8 mg/dL Normal 7-18 [facility] ([place] Comment on above: Performed By: #### HANS SCHWARTZ, AMRIT, ADIFF, CMP, GFR #### [address] [address] CBCon 03-22-2023 Erythrocyte distribution width (RBC) [Ratio] 14.0 % Normal 11.5-14.5 [facility] ([place] Comment on above: Performed By: #### C HANS BUTLER, ANEU, ADIFF, CMP, GFR #### [place] [address] Hematocrit (Bld) [Volume fraction] 40.6 % Normal 37.0-47.0 [facility] ([place] Comment on above: Performed By: #### HANS SCHWARTZ, ANEU, ADIFF, CMP, GFR #### [place] [phone] Hgb 13.6 G/dL Normal 12.0-16.0 [facility] ([place] Comment on above: Performed By: #### HANS SCHWARTZ, AMRIT, ADIFF, CMP, GFR #### [place] [id number] MCH (RBC) [Entitic mass] 29.2 pg Normal 27.0-31.2 [facility] ([place] Comment on above: Performed By: #### HANS SCHWARTZ, AMRIT, ADIFF, CMP, GFR #### [place] [address] MCHC 33.4 G/dL Normal 33.0-37.0 [facility] ([place] Comment on above: Performed By: #### HANS SCHWARTZ, AMRIT, ADIFF, CMP, GFR #### [place] [phone] MCV (RBC) [Entitic vol] 87.6 fL Normal 80.0-94.0 [facility] ([place]) Comment on above: Performed By: #### HANS SCHWARTZ, ANEU, ADIFF, CMP, GFR #### [address] [address] Platelet 256 10 3/mcL Normal 130-400 [facility] ([place] Comment on above: Performed By: #### HANS SCHWARTZ, ANEU, ADIFF, CMP, GFR #### [place] [address] Platelet mean volume (Bld) [Entitic vol] 8.8 fL Normal 7.4-10.4 [facility] ([place] Comment on above: Performed By: #### C HANS BUTLER, AMRIT, ADIFF, CMP, GFR #### [place] [phone] [place], [place] [address] RBC 4.64 10 6/mcL Normal 4.20-5.40 [facility] ([place] Comment on above: Performed By: #### C HANS BUTLER, JUAQUIN MARCUS, CMP, GFR #### [place] [phone] [place], [place] [address] WBC 11.0 10 3/mcL High 4.6-10.8 [facility] ([place] Comment on above: Performed By: #### C HANS BUTLER, JUAQUIN MARCUS, CMP, GFR #### [place] [phone] [place], [place] [address] CT ABD/PELVIS W/ IV CONTRAST ONLYon 03-22-2023 [...] 1:06:24 PM Ordering Provider: GREGG Valencia [facility] ([place] LABORATORYOrdered By: Moon Dutta on 03-22-2023 Appearance [...] Probable Contamination. Suggest recollection if clinically indicated. [facility] Work Phone: PREGUon 03-22-2023 HCG ( test) Ql (U) Negative Normal [facility] ([place] Comment on above: Performed By: #### C HANS BUTLER, ANEU, ADIFF, CMP, GFR #### [place] [phone] [place], [place] [address] test (u) int Not detected Invalid Interpretation Code [facility] ([place] Comment on above: Performed By: #### C HANS BUTLER, ANEU, ADIFF, CMP, GFR #### [address] [address] UAon 03-22-2023 Color (U) Yellow Normal [facility] ([place] Comment on above: Performed By: #### C HANS BUTLER, AMRIT, ADIFF, CMP, GFR #### [address] [address] Glucose (U) [Mass/Vol] 500 mg/dL Abnormal Negative [facility] ([place] Comment on above: Performed By: #### C HANS BUTLER, AMRIT, ADIFF, CMP, GFR #### [address] [address] Ketones Ql (U) Negative Normal Negative [facility] ([place] Comment on above: Performed By: #### C HANS BUTLER, AMRIT, ADIFF, CMP, GFR #### [address] [address] UA Appear Cloudy Abnormal Clear [facility] ([place] Comment on above: Performed By: #### C HANS BUTLER, AMRIT, ADIFF, CMP, GFR #### [address] [address] UA Blood Moderate Abnormal Negative [facility] ([place] Comment on above: Performed By: #### C HANS BUTLER, AMRIT, ADIFF, CMP, GFR #### [address] [address] UA Leuk Est Trace Abnormal Negative [facility] ([place] Comment on above: Performed By: #### HANS SCHWARTZ, AMRIT, ADIFF, CMP, GFR #### [address] [address] UA Nitrite Negative Normal Negative [facility] ([place] Comment on above: Performed By: #### C HANS BUTLER, ANEU, ADIFF, CMP, GFR #### [address] [address] UA pH 6.0 Normal 5.0 - 8.0 [facility] ([place] Comment on above: Performed By: #### HANS SCHWARTZ, ANEU, ADIFF, CMP, GFR #### [address] [address] UA Protein 100 mg/dL Abnormal Negative [facility] ([place] Comment on above: Performed By: #### HANS SCHWARTZ, AMRIT, KHADARIFF, CMP, GFR #### [address] [address] UA Spec Grav 1.020 Normal 1.015-1.025 [facility] ([place] Comment on above: Performed By: #### HANS SCHWARTZ, AMRIT, ADIFF, CMP, GFR #### [address] [address] UA Specimen Type Clean Catch Normal [facility] ([place] Comment on above: Performed By: #### HANS SCHWARTZ, AMRIT, ADIFF, CMP, GFR #### [address] [address] UA Urobilinogen 0.2 E.U./dL Normal 0.2-1.0 [facility] ([place] Comment on above: Performed By: #### HANS SCHWARTZ, AMRIT, ADIFF, CMP, GFR #### [address] [address] Urobilinogen (U) [Mass/Vol] Negative Normal Negative [facility] ([place] Comment on above: Performed By: #### HANS SCHWARTZ, AMRIT, ADIFF, CMP, GFR #### [address] [address] .GFRon 03-02-2023 GFR 109 ml/min/1.73sqm Normal [facility] ([place] Comment on above: Result Comment: GFR Population [...] Performed By: #### B MP, GFR #### [address] [address] GFR Non- 90 ml/min/1.73sqm Normal [facility] ([place] Comment on above: Result Comment: GFR Population [...] Performed By: #### B MP, GFR #### [address] [address] BMPon 03-02-2023 BUN/Creatinine Ratio 8 ratio Normal 7-27 [facility] ([place]) Comment on above: Performed By: #### B MP, GFR #### [address] [address] Calcium [Mass/Vol] 7.6 mg/dL Low 8.4-10.2 [facility] ([place] Comment on above: Performed By: #### B MP, GFR #### [address] [address] Chloride [Moles/Vol] 101 mmol/L Normal 98-107 [facility] ([place] Comment on above: Performed By: #### B MP, GFR #### [address] [address] CO2 [Moles/Vol] 24 mmol/L Normal 22-29 [facility] ([place] Comment on above: Performed By: #### B MP, GFR #### [address] [address] Creatinine [Mass/Vol] 0.73 mg/dL Normal 0.55-1.02 [facility] ([place]) Comment on above: Performed By: #### B MP, GFR #### [address] [address] Electrolyte Balance 11.0 mEq/L Normal 4.0-15.0 [facility] ([place]) Comment on above: Performed By: #### B MP, GFR #### [address] [address] Glucose [Mass/Vol] 310 mg/dL High 70-105 [facility] ([place] Comment on above: Performed By: #### B MP, GFR #### [address] [address] Potassium [Moles/Vol] 3.6 mmol/L Normal 3.5-5.1 [facility] ([place]) Comment on above: Performed By: #### B MP, GFR #### [address] [address] Sodium [Moles/Vol] 136 mmol/L Normal 136-145 [facility] ([place] Comment on above: Performed By: #### B MP, GFR #### [address] [address] Urea nitrogen [Mass/Vol] 6 mg/dL Low 7-18 [facility] ([place] Comment on above: Performed By: #### B MP, GFR #### [address] [address] .Auto Diffon 03-01-2023 Basophil, Absolute 0.0 10 3/mcL Normal 0.0-0.2 [facility] ([place] Comment on above: Performed By: #### C CARRIE, HANS, ANEU, ADIFF, CMP, GFR #### [address] [address] Basophils/100 WBC (Bld) 0.4 % Normal 0.0-2.5 [facility] ([place]) Comment on above: Performed By: #### C HANS BUTLER, ANEU, ADIFF, CMP, GFR #### [address] [address] Eosinophil, Absolute 0.1 10 3/mcL Normal 0.0-0.4 [facility] [place] Comment on above: Performed By: #### C HANS BUTLER, ANEU, ADIFF, CMP, GFR #### [address] [address] Eosinophils/100 WBC (Bld) 1.3 % Normal 0.0-7.0 [facility] ([place] Comment on above: Performed By: #### C HANS BUTLER, ANEU, ADIFF, CMP, GFR #### [address] [address] Lymphocyte, Absolute 2.5 10 3/mcL Normal 0.8-3.9 [facility] [place] Comment on above: Performed By: #### C HANS BUTLER, ANEU, ADIFF, CMP, GFR #### [address] [address] Lymphocytes/100 WBC (Bld) 30.2 % Normal 10.0-50.0 [facility] ([place] Comment on above: Performed By: #### C HANS BUTLER, ANEU, ADIFF, CMP, GFR #### [address] [address] Monocyte, Absolute 0.6 10 3/mcL Normal 0.2-1.0 [facility] ([place] Comment on above: Performed By: #### C HANS BUTLER, ANEU, ADIFF, CMP, GFR #### [address] [address] Monocytes/100 WBC (Bld) 6.9 % Normal 1.7-13.0 [facility] ([place] Comment on above: Performed By: #### C HANS BUTLER, ANEU, ADIFF, CMP, GFR #### [address] [address] Neutrophils/100 WBC (Bld) 61.2 % Normal 37.0-80.0 [facility] ([place] Comment on above: Performed By: #### C HANS BUTLER, AMRIT, ADIFF, CMP, GFR #### [address] [address] .GFRon 03-01-2023 GFR Non- 67 ml/min/1.73sqm Normal [facility] ([place] Comment on above: Result Comment: GFR Population [...] HANS BUTLER, AMRIT, ADIFF, CMP, GFR #### [address] [address] GFR 81 ml/min/1.73sqm Normal [facility] ([place] Comment on above: Result Comment: GFR Population [...] BUTLER, AMRIT, ADIFF, CMP, GFR #### [place] [address] .MDWon 03-01-2023 Monocyte Distribution Width 18.08 Normal 0.00-20.00 [facility] ([place] Comment on above: Result Comment: For ED adult patients suspected of sepsis, MDW<=20.0 does not rule out sepsis or risk of sepsis Performed By: #### C HANS BUTLER, ANEU, ADIFF, CMP, GFR #### [place] [address] .NEUABSon 03-01-2023 Neutrophil, Absolute 5.1 10 3/mcL Normal 2.9-6.2 [facility] [place] Comment on above: Performed By: #### C HANS BUTLER, ANEU, ADIFF, CMP, GFR #### [place] [address] CBCon 03-01-2023 Erythrocyte distribution width (RBC) [Ratio] 13.7 % Normal 11.5-14.5 [facility] ([place] Comment on above: Performed By: #### C HANS BUTLER, ANEU, ADIFF, CMP, GFR #### [place] [address] Hematocrit (Bld) [Volume fraction] 43.3 % Normal 37.0-47.0 [facility] ([place] Comment on above: Performed By: #### C HANS BUTLER, ANEU, ADIFF, CMP, GFR #### [place] [address] Hgb 14.3 G/dL Normal 12.0-16.0 [facility] ([place] Comment on above: Performed By: #### C HANS BUTLER, ANEU, ADIFF, CMP, GFR #### [place] [address] MCH (RBC) [Entitic mass] 29.6 pg Normal 27.0-31.2 [facility] ([place] Comment on above: Performed By: #### C HANS BUTLER, ANEU, ADIFF, CMP, GFR #### [place] [address] MCHC 33.1 G/dL Normal 33.0-37.0 [facility] ([place] Comment on above: Performed By: #### C HANS BUTLER, ANEU, ADIFF, CMP, GFR #### [address] [address] MCV (RBC) [Entitic vol] 89.3 fL Normal 80.0-94.0 [facility] ([place] Comment on above: Performed By: #### HANS SCHWARTZ, ANEU, ADIFF, CMP, GFR #### [address] [address] Platelet 212 10 3/mcL Normal 130-400 [facility] ([place] Comment on above: Performed By: #### HANS SCHWARTZ, AMRIT, ADIFF, CMP, GFR #### [address] [address] Platelet mean volume (Bld) [Entitic vol] 9.1 fL Normal 7.4-10.4 [facility] ([place] Comment on above: Performed By: #### C HANS BUTLER, AMRIT, ADIFF, CMP, GFR #### [address] [address] RBC 4.84 10 6/mcL Normal 4.20-5.40 [facility] ([place] Comment on above: Performed By: #### HANS SCHWARTZ, ANEU, ADIFF, CMP, GFR #### [address] [address] WBC 8.4 10 3/mcL Normal 4.6-10.8 [facility] ([place] Comment on above: Performed By: #### HANS SCHWARTZ, ANEU, ADIFF, CMP, GFR #### [address] [address] CMPon 03-01-2023 Albumin Level 3.5 G/dL Normal 3.5-5.0 [facility] ([place] Comment on above: Performed By: #### HANS SCHWARTZ, ANEU, ADIFF, CMP, GFR #### [address] [address] Albumin/Globulin [Mass ratio] 1.0 {ratio} Low 1.1-2.5 [facility] ([place] Comment on above: Performed By: #### C HANS BUTLER, AMRIT, ADIFF, CMP, GFR #### [place] [id number] [place], [place] [address] ALP [Catalytic activity/Vol] 128 U/L Normal 40-135 [facility] ([place] Comment on above: Performed By: #### C HANS BUTLER, AMRIT, ADIFF, CMP, GFR #### [address] [address] ALT [Catalytic activity/Vol] 44 U/L Normal 14-59 [facility] ([place] Comment on above: Performed By: #### C HANS BUTLER, AMRIT, ADIFF, CMP, GFR #### [address] [address] AST [Catalytic activity/Vol] 42 U/L High 10-40 [facility] ([place] Comment on above: Performed By: #### C HANS BUTLER, AMRIT, ADIFF, CMP, GFR #### [address] [address] Bili Total 0.2 mg/dL Normal 0.2-1.0 [facility] ([place] Comment on above: Result Comment: Use of this assay is not recommended for patients undergoing treatment with eltrombopag due to the potential for falsely elevated results. Performed By: #### C HANS BUTLER, AMRIT, ADIFF, CMP, GFR #### [address] [address] BUN/Creatinine Ratio 7 ratio Normal 7-27 [facility] ([place] Comment on above: Performed By: #### C HANS BUTLER, AMRIT, ADIFF, CMP, GFR #### [address] [address] Calcium [Mass/Vol] 8.4 mg/dL Normal 8.4-10.2 [facility] ([place]) Comment on above: Performed By: #### C HANS BUTLER, ANEU, ADIFF, CMP, GFR #### [address] [address] Chloride [Moles/Vol] 95 mmol/L Low 98-107 [facility] ([place] Comment on above: Performed By: #### C HANS BUTLER, AMRIT, ADIFF, CMP, GFR #### [address] [address] CO2 [Moles/Vol] 21 mmol/L Low 22-29 [facility] ([place] Comment on above: Performed By: #### C HANS BUTLER, AMRIT, ADIFF, CMP, GFR #### [place] [id number] Creatinine [Mass/Vol] 0.95 mg/dL Normal 0.55-1.02 [facility] ([place] Comment on above: Performed By: #### C HANS BUTLER, AMRIT, ADIFF, CMP, GFR #### [place] [address] Electrolyte Balance 16.0 mEq/L High 4.0-15.0 [facility] ([place] Comment on above: Performed By: #### HANS SCHWARTZ, AMRIT, ADIFF, CMP, GFR #### [place] [address] Globulin 3.5 G/dL Normal [facility] ([place] Comment on above: Performed By: #### C HANS BUTLER, AMRIT, ADIFF, CMP, GFR #### [address] [address] Glucose [Mass/Vol] 525 mg/dL Critically abnormal 70-105 [facility] ([place] Comment on above: Performed By: #### C HANS BUTLER, AMRIT, ADIFF, CMP, GFR #### [place] [address] Potassium [Moles/Vol] 4.1 mmol/L Normal 3.5-5.1 [facility] ([place] Comment on above: Performed By: #### HANS SCHWARTZ, ANEU, ADIFF, CMP, GFR #### [facility] [address] [place], [place] [address] Sodium [Moles/Vol] 132 mmol/L Low 136-145 [facility] ([place] Comment on above: Performed By: #### C HANS BUTLER, ANEU, ADIFF, CMP, GFR #### [place] [address] [place], [place] [address] Total Protein 7.0 G/dL Normal 6.4-8.2 [facility] ([place] Comment on above: Performed By: #### C HANS BUTLER, ANEU, ADIFF, CMP, GFR #### [place] [address] [place], [place] [address] Urea nitrogen [Mass/Vol] 7 mg/dL Normal 7-18 [facility] ([place] Comment on above: Performed By: #### C HANS BUTLER, ANEU, ADIFF, CMP, GFR #### [place] [id number] [place], [place] [address] CT HEAD OR BRAIN W/O CONTRAS Ton [...] 03/01/2023 8:58:57 PM Ordering Provider: BRITNEY MCLEOD [facility] ([place] LABORATORYOrdered By: SYSTEM SYSTEM on 03-01-2023 Calcium [...] ( test) Ql (U) Negative Normal [facility] ([place] Comment on above: Performed By: #### HANS SCHWARTZ, AMRIT, ADIFF, CMP, GFR #### [address] [address] test (u) int Not detected Invalid Interpretation Code [facility] ([place] Comment on above: Performed By: #### HANS SCHWARTZ, AMRIT, ADIFF, CMP, GFR #### [address] [address] UAon 03-01-2023 Color (U) Yellow Normal [facility] ([place] Comment on above: Performed By: #### HANS SCHWARTZ, AMRIT, ADIFF, CMP, GFR #### [address] [address] Glucose (U) [Mass/Vol] mg/dL Abnormal Negative [facility] [place] Comment on above: Performed By: #### HANS SCHWARTZ, AMRIT, ADIFF, CMP, GFR #### [address] [address] Ketones Ql (U) Negative Normal Negative [facility] ([place] Comment on above: Performed By: #### HANS SCHWARTZ, AMRIT, ADIFF, CMP, GFR #### [address] [address] UA Appear Clear Normal Clear [facility] ([place] Comment on above: Performed By: #### HANS SCHWARTZ, AMRIT, ADIFF, CMP, GFR #### [address] [address] UA Blood Trace Abnormal Negative [facility] ([place] Comment on above: Performed By: #### HANS SCHWARTZ, AMRIT, ADIFF, CMP, GFR #### [address] [address] UA Leuk Est Negative Normal Negative [facility] ([place] Comment on above: Performed By: #### C HANS BUTLER, AMRIT, ADIFF, CMP, GFR #### [address] [address] UA Nitrite Negative Normal Negative [facility] ([place] Comment on above: Performed By: #### HANS SCHWARTZ, AMRIT, ADIFF, CMP, GFR #### [address] [address] UA pH 6.5 Normal 5.0 - 8.0 [facility] ([place] Comment on above: Performed By: #### HANS SCHWARTZ, AMRIT, ADIFF, CMP, GFR #### [address] [address] UA Protein Negative Normal Negative [facility] ([place] Comment on above: Performed By: #### HANS SCHWARTZ, AMRIT, ADIFF, CMP, GFR #### [address] [address] UA Spec Grav 1.015 Normal 1.015-1.025 [facility] ([place] Comment on above: Performed By: #### HANS SCHWARTZ, ANEU, ADIFF, CMP, GFR #### [address] [address] UA Specimen Type Clean Catch Normal [facility] ([place] Comment on above: Performed By: #### HANS SCHWARTZ, AMRIT, ADIFF, CMP, GFR #### [address] [address] UA Urobilinogen 0.2 E.U./dL Normal 0.2-1.0 [facility] ([place] Comment on above: Performed By: #### HANS SCHWARTZ, ANEU, ADIFF, CMP, GFR #### [address] [address] Urobilinogen (U) [Mass/Vol] Negative Normal Negative [facility] ([place] Comment on above: Performed By: #### HANS SCHWARTZ, ANEU, ADIFF, CMP, GFR #### [place] [address] [place], [place] [address] [place] 09-11-2022 MUKUL Telephone (STED) ---- FANNYMALKAMONIQUE ([id number]) 1985 F Date Time Provider Department 09/11/22 [...] also elevated. STRONGLY recommend she sees the [facility] [employer] for meal planning. Her A1C is elevated, [...] phone pharmacy and notify patient. Lupe Gutierrez APRN.FINISH REMOVER Component Latest Ref Rng AND Units 09/08/2022 [...] assist in scheduling a visit with Endo cruise consultant. She tried to schedule online and was unable. She states that the first available that she was able to locate was in February. She prefers [facility] or somewhere near there. Thank you! [...] Inject 20 units once daily - Insulin Vardaman, Disposable, (PEN NEEDLE) 32 gauge x 5/32 Inject 1 Each subcutaneously q 24 HR. Give with each insulin admin (more content not included)... Normal [facility] C-PEPTIDE BLDon 09-09-2022 C peptide [Mass/Vol] 2.90 ng/mL 0.81 - 3.85 ng/mL [facility] Comprehensive metabolic 2000 panelon 09-09-2022 Albumin [Mass/Vol] 4.1 g/dL 3.9 - 4.9 g/dL [facility] ALP [Catalytic activity/Vol] 98 U/L 34 - 123 U/L [facility] ALT [Catalytic activity/Vol] 22 U/L 7 - 38 U/L [facility] Anion gap [Moles/Vol] 13 mmol/L 9 - 18 mmol/L [facility] AST [Catalytic activity/Vol] 21 U/L 13 - 35 U/L [facility] Bilirubin [Mass/Vol] Low 0.2 - 1.3 mg/dL [facility] Calcium [Mass/Vol] 8.7 mg/dL 8.5 - 10. 2 mg/dL [facility] Chloride [Moles/Vol] 101 mmol/L 97 - 105 mmol/L [facility] CO2 [Moles/Vol] 21 mmol/L Low 22 - 30 mmol/L [facility] Creatinine [Mass/Vol] 0.55 mg/dL Low 0.58 - 0.96 mg/dL [facility] Estimated Glomerular Filtration Rate 123 mL/min/1.73m >=60 mL/min/1.73m [facility] Glucose [Mass/Vol] 182 mg/dL High 74 - 99 mg/dL [facility] Potassium [Moles/Vol] 4.2 mmol/L 3.7 - 5.1 mmol/L [facility] Protein [Mass/Vol] 6.8 g/dL 6.3 - 8.0 g/dL [facility] Sodium [Moles/Vol] 135 mmol/L Low 136 - 144 mmol/L [facility] Urea nitrogen [Mass/Vol] 8 mg/dL 7 - 21 mg/dL [facility] HbA1c (Bld)on 09-09-2022 Average glucose Estimated from glycated hemoglobin (Bld) [Mass/Vol] 229 mg/dL [facility] HbA1c (Bld) [Mass fraction] 9.6 % High 4.3 - 5.6 % [facility] LIPID PANEL, NONFASTINGon Cholesterol [Mass/Vol] 236 mg/dL High <200 mg/dL [facility] HDL Cholesterol, Nonfasting 45 mg/dL >39 mg/dL [facility] LDL Cholesterol, Nonfasting 160 mg/dL High <100 mg/dL [facility] LDL/HDL Ratio, Nonfasting 3.56 mg/dL High <2.54 mg/dL [facility] Non HDL Cholesterol, Nonfasting 191 mg/dL High <130 mg/dL [facility] Total Chol/HDL Ratio, Nonfasting 5.24 mg/dL High <5.10 mg/dL [facility] Triglycerides, Nonfasting 156 mg/dL High <150 mg/dL [facility] VLDL Cholesterol, Nonfasting 31 mg/dL High <30 mg/dL [facility] VITAMIN B12 BLOODon 09-10-19 Cobalamin (Vitamin B12) [Mass/Vol] 317 pg/mL 232 - 1,245 pg/mL [facility] 25(OH)D3 SerPl-mCncon 2022 25-hydroxyvitamin D3 [Mass/Vol] 12.5 ng/mL Low 31.0-80.[address] [facility] Comment on above: Order Comment: Speci men Type: BLOOD SPECIMEN Ordering Facility: [facility] Address: [address] [place] [address] Performed By: #### 1 986-9 #### [facility] CLIA [id number] [address] [place] [address] [place] ALBUMIN/CREAT RATIO RND URon 09-08-2022 Albumin DL <= 20 mg/L (U) [Mass/Vol] mg/dL Normal [facility] Comment on above: Order Comment: Speci men Type: URINE SPECIMEN Ordering Facility: [facility] Address: [address] [place] [address] Performed By: #### U ACR #### [facility] CLIA [id number] [address] [place] [address] [place] Albumin/Creatinine (U) [Mass ratio] <9 Normal <[address] [facility] Comment on above: Order Comment: Speci men Type: URINE SPECIMEN Ordering Facility: [facility] Address: [address] [place] [address] Result Comment: Adul t Male and Female Nephrotic Criteria: <30 mg/g is considered normal to mildly increased 30-300 mg/g is considered moderately increased >300 mg/g is considered severely increased KDIGO. (2013). KDIGO 2012 Clinical Practice Guideline for the Evaluation and Management of Chronic Kidney Disease. Official Journal of the International Society of Nephrology, 3(1), 1-150. Performed By: #### U ACR #### [facility] CLIA [id number] [facility] [address] OF [facility] Creatinine (U) [Mass/Vol] 128.6 mg/dL Normal 20.0-300.[address] [facility] Comment on above: Order Comment: Speci men Type: URINE SPECIMEN Ordering Facility: [facility] Address: [address] [place] [address] Performed By: #### U ACR #### [facility] CLIA [id number] [address] [place] C peptide SerPl-mCncon 09-08 C peptide [Mass/Vol] 2.90 ng/mL Normal 0.81-3.[address] [facility] Comment on above: Order Comment: Speci men Type: BLOOD SPECIMEN Ordering Facility: [facility] Address: [address] [address] Performed By: #### 1 986-9 #### [facility] IA [id number] [address] [place] [address] OF [facility] CNOVon 09-08-2022 CNOV Office Visit (YANAT) ---- MONIQUE ACEVEDO ([id number]) 1985 F Date Time Provider Department 09/08/22 2:00 PM LUPE GUTIERREZ During your visit today, we recorded the following information about you: Lupe Gutierrez APRN.YUSUF 09/09/2022 9:04 AM Signed NEW CONSULT OFFICE [...] 2016 Previously patient of BC RUCKER MD, [facility] for gestational DM, last visit 09/12/2014 Initially [...] egg salad w fruit/veggie OR burrito from [employer] - drinks diet pop, water Dinner [...] times daily (more content not included)... Normal [facility] Comprehensive metabolic 2000 panelon 09-08-2022 Albumin [Mass/Vol] 4.1 g/dL Normal 3.9-4.9 [facility] Comment on above: Order Comment: Speci men Type: BLOOD SPECIMEN Ordering Facility: [facility] Address: [address] [place] [address] Performed By: #### 5 5454-3 #### [facility] CLIA [id number] [address] [place] [address] [place] ALP [Catalytic activity/Vol] 98 U/L Normal 34-[address] [facility] Comment on above: Order Comment: Speci men Type: BLOOD SPECIMEN Ordering Facility: [facility] Address: [address] [place] [address] Performed By: #### 5 5454-3 #### [facility] CLIA [id number] [address] [place] [address] [place] ALT [Catalytic activity/Vol] 22 U/L Normal 7-[address] [facility] Comment on above: Order Comment: Speci men Type: BLOOD SPECIMEN Ordering Facility: [facility] Address: [address] [place] [address] Performed By: #### 5 5454-3 #### [facility] CLIA [id number] [address] [place] [address] [place] Anion gap [Moles/Vol] 13 mmol/L Normal 9-18 [facility] Comment on above: Order Comment: Speci men Type: BLOOD SPECIMEN Ordering Facility: [facility] Address: [address] [place] [address] Performed By: #### 5 5454-3 #### [facility] CLIA [id number] [address] [address] [place] AST [Catalytic activity/Vol] 21 U/L Normal 13-[address] [facility] Comment on above: Order Comment: Speci men Type: BLOOD SPECIMEN Ordering Facility: [facility] Address: [address] [place] [address] Performed By: #### 5 5454-3 #### [facility] CLIA [id number] [address] [place] [address] [place] Bilirubin [Mass/Vol] mg/dL Low 0.2-1.[address] [facility] Comment on above: Order Comment: Speci men Type: BLOOD SPECIMEN Ordering Facility: [facility] [place] [address] Performed By: #### 5 5454-3 #### [facility] CLIA [id number] [address] [place] [address] [place] Calcium [Mass/Vol] 8.7 mg/dL Normal 8.5-10.2 [facility] Comment on above: Order Comment: Speci men Type: BLOOD SPECIMEN Ordering Facility: [facility] Address: [address] [place] [address] Performed By: #### 5 5454-3 #### [facility] CLIA [id number] [address] [place] [address] [place] Chloride [Moles/Vol] 101 mmol/L Normal 97-[address] [facility] Comment on above: Order Comment: Speci men Type: BLOOD SPECIMEN Ordering Facility: [facility] Address: [address] [place] [address] Performed By: #### 5 5454-3 #### [facility] CLIA [id number] [address] [place] [address] [place] CO2 [Moles/Vol] 21 mmol/L Low 22-[address] [facility] Comment on above: Order Comment: Speci men Type: BLOOD SPECIMEN Ordering Facility: [facility] Address: [address] [place] [address] Performed By: #### 5 5454-3 #### [facility] CLIA [id number] [address] [place] [address] [place] Creatinine [Mass/Vol] 0.55 mg/dL Low 0.58-0.96 [facility] Comment on above: Order Comment: Speci men Type: BLOOD SPECIMEN Ordering Facility: [facility] Address: [address] [address] Performed By: #### 5 5454-3 #### [facility] CLIA [id number] [address] [place] [address] [place] ESTIMATED GLOMERULAR FILTRATION RATE 123 mL/min/1.73m??? Normal >=[address] [facility] Comment on above: Order Comment: Arash boss Type: BLOOD SPECIMEN Ordering Facility: [facility] Address: [facility] [place] [address] Result Comment: Cheryl mated Glomerular Filtration Rate [...] GFR. Performed By: #### 5 5454-3 #### [facility] CLIA [id number] [address] [place] [address] [place] Glucose [Mass/Vol] 182 mg/dL High 74-99 [facility] Comment on above: Order Comment: Arash boss Type: BLOOD SPECIMEN Ordering Facility: [facility] Address: [facility] [place] [address] Result Comment: The [place] Diabetes Association (ADA) provides guidance for cutoff [...] Standards of Medical Care in Diabetes 2016, [place] Diabetes Association. Diabetes Care. 2016.39(Suppl 1). Performed By: #### 5 5454-3 #### [facility] CLIA [id number] [address] [place] [address] [place] Potassium [Moles/Vol] 4.2 mmol/L Normal 3.7-5.1 [facility] Comment on above: Order Comment: Speci men Type: BLOOD SPECIMEN Ordering Facility: [facility] Address: [address] [place] [address] Performed By: #### 5 5454-3 #### [facility] CLIA [id number] [address] [place] [address] [place] Protein [Mass/Vol] 6.8 g/dL Normal 6.3-8.0 [facility] Comment on above: Order Comment: Speci men Type: BLOOD SPECIMEN Ordering Facility: [facility] Address: [address] [place] [address] Performed By: #### 5 5454-3 #### [facility] CLIA [id number] [address] [place] [address] [place] Sodium [Moles/Vol] 135 mmol/L Low 136-144 [facility] Comment on above: Order Comment: Speci men Type: BLOOD SPECIMEN Ordering Facility: [facility] Address: [address] [place] [address] Performed By: #### 5 5454-3 #### [facility] CLIA [id number] [address] [place] [address] [place] Urea nitrogen [Mass/Vol] 8 mg/dL Normal 7-[address] [facility] Comment on above: Order Comment: Speci men Type: BLOOD SPECIMEN Ordering Facility: [facility] Address: [address] [place] [address] Performed By: #### 5 5454-3 #### [facility] CLIA [id number] [address] [place] [address] [place] GAD65 Ab Ser-aCncon 09-09-19 23 Glutamate decarboxylase 65 Ab Qn (S) <5.0 Normal <=5.[address] [facility] Comment on above: Order Comment: Arash boss Type: BLOOD SPECIMEN Ordering Facility: [facility] Address: [address] [place] [address] Result Comment: Anti -glutamic acid decarboxylase antibody [...] required. Performed By: #### 5 5454-3 #### [facility] CLIA [id number] [address] [place] [address] [place] Glutamate decarboxylase 65 A b Qn (S)on 09-08-2022 GLUTAMIC ACID DECARBOXYLAS AB QUALITATIVE Negative Normal Negative [facility] Comment on above: Order Comment: Arash boss Type: BLOOD SPECIMEN Ordering Facility: [facility] Address: [address] [place] [address] Performed By: #### 5 5454-3 #### [facility] CLIA [id number] [address] [place] [address] [place] HbA1c (Bld)on 09-08-2022 Average glucose Estimated from glycated hemoglobin (Bld) [Mass/Vol] 229 mg/dL Normal [facility] Comment on above: Order Comment: Arash boss Type: BLOOD SPECIMEN Ordering Facility: [facility] Address: [address] [place], [place] [id number] Result Comment: eAG: (Estimated average glucose) is a calculated value from HgbA1c and is guest experience representative of the average blood glucose level in the last 2-3 month period. Performed By: #### 5 5454-3 #### [facility] CLIA [id number] [address] [place] [address] [place] HbA1c (Bld) [Mass fraction] 9.6 % High 4.3-5.[address] [facility] Comment on above: Order Comment: Arash boss Type: BLOOD SPECIMEN Ordering Facility: [facility] Address: [address] [id number] Result Comment: Amer ican Diabetes Association guidelines indicate that patients with HgbA1c in the range 5.7-6.4% are at increased risk for development of diabetes, and intervention by lifestyle modification may be beneficial. HgbA1c greater or equal to 6.5% is considered diagnostic of diabetes. Performed By: #### 5 5454-3 #### [facility] CLIA [id number] [address] [place] [address] [place] ISLET CELL ABon 09-08-2022 ISLET CELL AB <1:4 Normal <1:[address] [facility] Comment on above: Order Comment: Arash boss Type: BLOOD SPECIMEN Ordering Facility: [facility] Address: [address] [place] [address] Result Comment: INTE RPRETIVE INFORMATION: Islet Cell [...] developed and its performance characteristics determined by [facility]. It has not been cleared or approved by the US Food and Drug Administration. This test was performed in a CLIA certified laboratory and is intended for clinical purposes. Performed By: [facility] [address] [place] [address] Service Representative: Edgar Phillips MD, PhD Performed By: #### 1 986-9 #### [facility] CLIA [id number] [address] [place] [address] [place] LIPID PANEL, NONFASTINGon Cholesterol [Mass/Vol] 236 mg/dL High <200 [facility] Comment on above: Order Comment: Arash boss Type: BLOOD SPECIMEN Ordering Facility: [facility] Address: [address] [place], [place] [address] Result Comment: <200 mg/dL, Desirable 200-239 mg/dL, Borderline high >239 mg/dL, High Performed By: #### 5 5454-3 #### [facility] CLIA [id number] [address] [place] HDL CHOLESTEROL, NF 45 mg/dL Normal >39 [facility] Comment on above: Order Comment: Arash karyn Type: BLOOD SPECIMEN Ordering Facility: [facility] Address: [facility] [place] [address] Result Comment: 40-5 9 mg/dL, Acceptable >59 mg/dL, High: Negative risk factor for coronary heart disease <40 mg/dL, Low: Positive risk factor for coronary heart disease Performed By: #### 5 5454-3 #### [facility] CLIA [id number] [address] [place] LDL CHOLESTEROL, NF 160 mg/dL High <100 [facility] Comment on above: Order Comment: [facility] Type: BLOOD SPECIMEN Ordering Facility: [facility] Address: [facility] [place] [address] Result Comment: <100 mg/dL, Optimal 100-129 mg/dL, Near optimal/above optimal 130-159 mg/dL, Borderline high 160-189 mg/dL, High >189 mg/dL, Very high Secondary prevention optimal LDL Cholesterol levels are recommended to be < 70 mg/dL Performed By: #### 5 5454-3 #### [facility] CLIA [id number] [address] [place] LDL/HDL RATIO, NF 3.56 mg/dL High <2.54 [facility] Comment on above: Order Comment: [facility] Type: BLOOD SPECIMEN Ordering Facility: [facility] Address: [facility] [place] [address] Result Comment: Refe rence: 1. National Cholesterol Education Program ATP III Guideline At-A-Glance Quick Desk Reference: National Heart, Lung, and Blood [place]. National Institutes of Health. 2001: NIH Publication No. 01-3305. 2. An International Atherosclerosis Society position paper: global recommendations for the management of dyslipidemia: executive summary, Atherosclerosis. 2014: 232(2):410-413. Performed By: #### 5 5454-3 #### [facility] CLIA [id number] [address] [place] [address] [place] NON HDL CHOL, NF 191 mg/dL High <130 [facility] Comment on above: Order Comment: Arash boss Type: BLOOD SPECIMEN Ordering Facility: [facility] Address: [facility] [place] [address] Result Comment: <130 mg/dL, Optimal 130-159 mg/dL, Near optimal/above optimal 160-189 mg/dL, Borderline high 190-219 mg/dL, High >219 mg/dL, Very high Secondary prevention optimal non HDL Cholesterol levels are recommended to be <100 mg/dL Performed By: #### 5 5454-3 #### [facility] CLIA [id number] [address] [place] [address] [place] T CHOL/HDL RATIO NF 5.24 mg/dL High <5.10 [facility] Comment on above: Order Comment: Arash karyn Type: BLOOD SPECIMEN Ordering Facility: [facility] Address: [facility] [place] [address] Performed By: #### 5 5454-3 #### [facility] CLIA [id number] [address] [place] [address] [place] TRIGLYCERIDES, NF 156 mg/dL High <150 [facility] Comment on above: Order Comment: Arash boss Type: BLOOD SPECIMEN Ordering Facility: [facility] Address: [facility] [place] [address] Result Comment: <150 mg/dL, Normal 150-199 mg/dL, Borderline high 200-499 mg/dL, High >499 mg/dL, Very high Performed By: #### 5 5454-3 #### [facility] CLIA [id number] [address] [place] [id number] [place] VLDL CHOLESTEROL, NF 31 mg/dL High <[address] [facility] Comment on above: Order Comment: Arash boss Type: BLOOD SPECIMEN Ordering Facility: [facility] Address[facility] [place] [id number] Performed By: #### 5 5454-3 #### [facility] CLIA [id number] [address] [place] [address] [place] THYROID PEROXIDASE ANTIBODY BLOODon 09-08-2022 TPO Ab Qn [IU]/mL Normal <5.[address] [facility] Comment on above: Order Comment: Arash karyn Type: BLOOD SPECIMEN Ordering Facility: [facility] Address: [address] [place] [address] Result Comment: Thyr oid Peroxidase Antibody test is used as an aid in diagnosis of autoimmune thyroid disease. Clinical correlation is required. Performed By: #### 1 986-9 #### [facility] CLIA [id number] [address] [place] [address] [place] Vit B12 SerPl-mCncon 023 Cobalamin (Vitamin B12) [Mass/Vol] 317 pg/mL Normal 232-[address] [facility] Comment on above: Order Comment: Arash karyn Type: BLOOD SPECIMEN Ordering Facility: [facility] [place] [address] Performed By: #### 5 5454-3 #### [facility] CLIA [id number] [address] [place] [address] [place] .Auto Diffon 08-25-2022 Basophil, Absolute 0.1 10 3/mcL Normal 0.0-0.2 [facility] ([place]) Comment on above: Performed By: #### B MP, CBC, MDW, ADIFF, GFR, PHV, ANEU ###Al[address] [place], [place] [address] Basophils/100 WBC (Bld) 0.6 % Normal 0.0-2.5 [facility] ([place]) Comment on above: Performed By: #### B MP, CBC, MDW, ADIFF, GFR, PHV, ANEU ###Alfreda [address] [place], [place] [address] Eosinophil, Absolute 0.1 10 3/mcL Normal 0.0-0.4 [facility] ([place] Comment on above: Performed By: #### B MP, CBC, MDW, ADIFF, GFR, PHV, ANEU ####Baron [address] [place], [place] [address] Eosinophils/100 WBC (Bld) 1.0 % Normal 0.0-7.0 [facility] ([place]) Comment on above: Performed By: #### B MP, CBC, MDW, ADIFF, GFR, PHV, ANEU ####Baron [address] [place], [place] [address] Lymphocyte, Absolute 2.3 10 3/mcL Normal 0.8-3.9 [facility] ([place] Comment on above: Performed By: #### B MP, CBC, MDW, ADIFF, GFR, PHV, ANEU ####Baron [address] [place], [place] [address] Lymphocytes/100 WBC (Bld) 24.7 % Normal 10.0-50.0 [facility] ([place]) Comment on above: Performed By: #### B MP, CBC, MDW, ADIFF, GFR, PHV, ANEU ####Baron [address] [place], [place] [address] Monocyte, Absolute 0.6 10 3/mcL Normal 0.2-1.0 [facility] ([place]) Comment on above: Performed By: #### B MP, CBC, MDW, ADIFF, GFR, PHV, ANEU ####Baron [address] [place], [place] [address] Monocytes/100 WBC (Bld) 6.6 % Normal 1.7-13.0 [facility] ([place]) Comment on above: Performed By: #### B MP, CBC, MDW, ADIFF, GFR, PHV, ANEU ####Baron [address] [place], [place] [address] Neutrophils/100 WBC (Bld) 67.1 % Normal 37.0-80.0 [facility] ([place]) Comment on above: Performed By: #### B KATIE, DOUGLAS, HANS, ADABIEL, GFR, PHV, ANEU ####Baron [address] [address] .GFRon 08-25-2022 GFR 102 ml/min/1.73sqm Normal [facility] ([place]) Comment on above: Result Comment: GFR Population [...] BUTLER, ANEU, ADIFF, CMP, GFR #### Baron [address] [address] GFR Non- 84 ml/min/1.73sqm Normal [facility] ([place]) Comment on above: Result Comment: GFR Population [...] [place]LER, ANEU, ADIFF, CMP, GFR #### Baron [address] [address] .MDWon 08-25-2022 Monocyte Distribution Width 19.73 Normal 0.00-20.00 [facility] ([place]) Comment on above: Result Comment: For ED adult patients suspected of sepsis, MDW<=20.0 does not rule out sepsis or risk of sepsis Performed By: #### B MP, CBC, HANS, ADIFF, GFR, PHV, ANEU ####[address] [address] .NEUABSon 08-25-2022 Neutrophil, Absolute 6.1 10 3/mcL Normal 2.9-6.2 [facility] ([place] Comment on above: Performed By: #### B MP, CBC, HANS, ADIFF, GFR, PHV, ANEU ####[address] [address] .Urinalysis Microscopic (AO) on 08-25-2022 UA Bacteria Trace Abnormal [facility] ([place]) Comment on above: Performed By: #### C HANS BUTLER, ANEU, ADIFF, CMP, GFR #### [address] [address] UA RBC 0-5 Abnormal None Seen [facility] ([place]) Comment on above: Performed By: #### C HANS BUTLER, ANEU, ADIFF, CMP, GFR #### [address] [address] UA Squam Epithelial 0-5 Abnormal None Seen [facility] ([place]) Comment on above: Performed By: #### C HANS BUTLER, ANEU, ADIFF, CMP, GFR #### [address] [address] UA WBC 0-5 Abnormal None Seen [facility] ([place]) Comment on above: Performed By: #### C HANS BUTLER, ANEU, ADIFF, CMP, GFR #### [address] [address] BMPon 08-25-2022 BUN/Creatinine Ratio 13 ratio Normal 7-27 [facility] ([place]) Comment on above: Performed By: #### C HANS BUTLER, ANEU, ADIFF, CMP, GFR #### [address] [address] Calcium [Mass/Vol] 9.3 mg/dL Normal 8.4-10.2 [facility] ([place]) Comment on above: Performed By: #### HANS SCHWARTZ, AMRIT, ADIFF, CMP, GFR #### [address] [address] Chloride [Moles/Vol] 96 mmol/L Low 98-107 [facility] ([place]) Comment on above: Performed By: #### C HANS BUTLER, AMRIT, ADIFF, CMP, GFR #### [place] [id number] CO2 [Moles/Vol] 22 mmol/L Normal 22-29 [facility] ([place]) Comment on above: Performed By: #### HANS SCHWARTZ, AMRIT, ADIFF, CMP, GFR #### [place] [id number] Creatinine [Mass/Vol] 0.78 mg/dL Normal 0.55-1.02 [facility] ([place]) Comment on above: Performed By: #### C HANS BUTLER, AMRIT, ADIFF, CMP, GFR #### [address] [address] Electrolyte Balance 14.0 mEq/L Normal 4.0-15.0 [facility] ([place]) Comment on above: Performed By: #### HANS SCHWARTZ, AMRIT, ADIFF, CMP, GFR #### [address] [address] Glucose [Mass/Vol] 399 mg/dL High 70-105 [facility] ([place]) Comment on above: Performed By: #### HANS SCHWARTZ, AMRIT, ADIFF, CMP, GFR #### [address] [address] Potassium [Moles/Vol] 3.9 mmol/L Normal 3.5-5.1 [facility] ([place]) Comment on above: Performed By: #### C HANS BUTLER, ANEU, ADIFF, CMP, GFR #### [facility] [address] [place], [place] [address] Sodium [Moles/Vol] 132 mmol/L Low 136-145 [facility] ([place]) Comment on above: Performed By: #### C HANS BUTLER, ANEU, ADIFF, CMP, GFR #### [place] [address] [place], [place] [address] Urea nitrogen [Mass/Vol] 10 mg/dL Normal 7-18 [facility] ([place]) Comment on above: Performed By: #### C HANS BUTLER, ANEU, ADIFF, CMP, GFR #### [place] [address] [place], [place] [address] CBCon 08-25-2022 Erythrocyte distribution width (RBC) [Ratio] 13.8 % Normal 11.5-14.5 [facility] ([place]) Comment on above: Performed By: #### B KATIE, CBC, HANS, KHADARIFF, GFR, PHV, ANEU ####[place] [address] [place], [place] [address] Hematocrit (Bld) [Volume fraction] 43.4 % Normal 37.0-47.0 [facility] ([place]) Comment on above: Performed By: #### B KATIE, CBC, HANS, JUAQUIN, GFR, PHV, ANEU ####[facility] [place], [place] [address] Hgb 14.4 G/dL Normal 12.0-16.0 [facility] ([place]) Comment on above: Performed By: #### B KATIE, CBC, HANS, ADIFF, GFR, PHV, ANEU ####[facility] [place], [place] [address] MCH (RBC) [Entitic mass] 29.4 pg Normal 27.0-31.2 [facility] ([place]) Comment on above: Performed By: #### B KATIE, CBC, HANS, ADIFF, GFR, PHV, ANEU ####[facility] [place], [place] [address] MCHC 33.2 G/dL Normal 33.0-37.0 [facility] ([place]) Comment on above: Performed By: #### B MP, CBC, MDW, ADIFF, GFR, PHV, ANEU ####[address] [place], [place] [address] MCV (RBC) [Entitic vol] 88.5 fL Normal 80.0-94.0 [facility] ([place]) Comment on above: Performed By: #### B MP, CBC, MDW, ADIFF, GFR, PHV, ANEU ####[address] [place] [place], [place] [address] Platelet 228 10 3/mcL Normal 130-400 [facility] ([place]) Comment on above: Performed By: #### B MP, CBC, MDW, ADIFF, GFR, PHV, ANEU ####[address] [place] [place], [place] [address] Platelet mean volume (Bld) [Entitic vol] 9.0 fL Normal 7.4-10.4 [facility] ([place]) Comment on above: Performed By: #### B MP, CBC, MDW, ADIFF, GFR, PHV, ANEU ####[address] [place] [place], [place] [address] RBC 4.90 10 6/mcL Normal 4.20-5.40 [facility] ([place]) Comment on above: Performed By: #### B MP, CBC, MDW, ADIFF, GFR, PHV, ANEU ####[address] [place] [place], [place] [address] WBC 9.2 10 3/mcL Normal 4.6-10.8 [facility] ([place]) Comment on above: Performed By: #### B MP, CBC, MDW, ADIFF, GFR, PHV, ANEU ####[address] [place], [place] [address] LABORATORYOrdered By: Nereyda Dominguez on 08-25-2022 Blood Glucose Interventions Notify physician (08/25/22 3:45 PM) [facility] Work Phone: Blood Glucose Testing Reason Routine (08/25/22 3:45 PM) [facility] Work Phone: Glucose [Mass/Vol] 202 mg/dL Invalid Interpretation Code 70 - 110 mg/dL [facility] Work Phone: LABORATORYOrdered By: Andre Coppola [...] 08-25-2022 pH Venous 7.46 High 7.31-7.41 [facility] ([place]) Comment on above: Performed By: #### HANS SCHWARTZ, AMRIT, ADABIEL, CMP, GFR #### [address] [address] PREGUon 08-25-2022 HCG ( test) Ql (U) Negative Normal [facility] ([place] Comment on above: Performed By: #### HANS SCHWARTZ, AMRIT, ADIFF, CMP, GFR #### [address] [address] test (u) int Not detected Invalid Interpretation Code [facility] ([place]) Comment on above: Performed By: #### HANS SCHWARTZ, AMRIT, ADIFF, CMP, GFR #### [address] [address] UAon 08-25-2022 Color (U) Yellow Normal [facility] ([place] Comment on above: Performed By: #### HANS SCHWARTZ, AMRIT, ADIFF, CMP, GFR #### [address] [address] Glucose (U) [Mass/Vol] mg/dL Abnormal Negative [facility] ([place]) Comment on above: Performed By: #### HANS SCHWARTZ, AMRIT, ADIFF, CMP, GFR #### [address] [address] Ketones Ql (U) Negative Normal Negative [facility] ([place] Comment on above: Performed By: #### HANS SCHWARTZ, AMRIT, ADIFF, CMP, GFR #### [address] [address] UA Appear Slightly Cloudy Abnormal Clear [facility] ([place] Comment on above: Performed By: #### HANS SCHWARTZ, AMRIT, ADIFF, CMP, GFR #### [address] [address] UA Blood Trace Abnormal Negative [facility] ([place] Comment on above: Performed By: #### C HANS BUTLER, AMRIT, ADIFF, CMP, GFR #### [address] [address] UA Leuk Est Negative Normal Negative [facility] ([place] Comment on above: Performed By: #### C HANS BUTLER, AMRIT, ADIFF, CMP, GFR #### [address] [address] UA Nitrite Negative Normal Negative [facility] ([place] Comment on above: Performed By: #### C HANS BUTLER, AMRIT, ADIFF, CMP, GFR #### [address] [address] UA pH 6.0 Normal 5.0 - 8.0 [facility] ([place]) Comment on above: Performed By: #### HANS SCHWARTZ, AMRIT, ADIFF, CMP, GFR #### [address] [address] UA Protein Negative Normal Negative [facility] ([place] Comment on above: Performed By: #### C HANS BUTLER, AMRIT, KHADARIFF, CMP, GFR #### [address] [address] UA Spec Grav 1.010 Abnormal 1.015-1.025 [facility] ([place]) Comment on above: Performed By: #### HANS SCHWARTZ, AMRIT, ADIFF, CMP, GFR #### [address] [address] UA Specimen Type Clean Catch Normal [facility] ([place] Comment on above: Performed By: #### HANS SCHWARTZ, AMRIT, ADIFF, CMP, GFR #### [address] [address] UA Urobilinogen 0.2 E.U./dL Normal 0.2-1.0 [facility] ([place]) Comment on above: Performed By: #### C HANS BUTLER, ANEU, ADIFF, CMP, GFR #### [address] [place] [address] [place], [place] [address] Urobilinogen (U) [Mass/Vol] Negative Normal Negative [facility] ([place] Comment on above: Performed By: #### C HANS BUTLER, AMRIT, ADIFF, CMP, GFR #### [address] [place] [address] [place], [place] [address] LUCIANA BY IFA SCREENon 06-04-19 23 Nuclear Ab IF (S) [Titer] Negative Normal Negative [facility] Comment on above: Order Comment: Arash boss Type: BLOOD SPECIMEN Ordering Facility: [facility] Address: [address] [place] [address] Result Comment: Anti -nuclear antibody test is used as an aid in diagnosis of systemic autoimmune diseases. Where positive and clinically warranted, follow-up using disease-specific testing is recommended. Low positive titers are not uncommon with advanced age, certain chronic infections, and malignancies among others. Test methodology: Indirect fluorescence immunoassay (IFA) using HEp-2 cells. Performed By: #### 5 5454-3 #### [facility] CLIA [id number] [address] [place] [address] [place] HbA1c (Bld)on 06-04-2022 Average glucose Estimated from glycated hemoglobin (Bld) [Mass/Vol] 223 mg/dL Normal [facility] Comment on above: Order Comment: [facility] Type: BLOOD SPECIMEN Ordering Facility: [facility] Address: [address] [place] [address] Result Comment: eAG: (Estimated average glucose) is a calculated value from HgbA1c and is guest experience representative of the average blood glucose level in the last 2-3 month period. Performed By: #### 5 5454-3 #### [facility] CLIA [id number] [address] [place] [address] [place] HbA1c (Bld) [Mass fraction] 9.4 % High 4.3-5.[address] [facility] Comment on above: Order Comment: [facility] Type: BLOOD SPECIMEN Ordering Facility: [facility] Address: [address] [place], [place] [id number] Result Comment: Amer [place] Diabetes Association guidelines indicate that patients with HgbA1c in the range 5.7-6.4% are at increased risk for development of diabetes, and intervention by lifestyle modification may be beneficial. HgbA1c greater or equal to 6.5% is considered diagnostic of diabetes. Performed By: #### 5 5454-3 #### [facility] CLIA [id number] [address] [place], [place] [id number] [place] Rheumatoid fact SerPl-aCncon 06-04-2022 Rheumatoid factor Qn [IU]/mL Normal <16 [facility] Comment on above: Order Comment: Speci men Type: BLOOD SPECIMEN Ordering Facility: [facility] Address: [address] [place] [place] [id number] Performed By: #### 5 5454-3 #### [facility] CLIA [id number] [address] [place] [address] [place] Culture, urineOrdered By: Lucy Ambriz on 05-30-2022 Bacteria identified Cx Nom (U) Klebsiella pneumoniae sp pneum [facility] Basophil percentageOrdered B y: David Ambriz on 05-28-2022 Basophil percentage 10-25 SEEN /hpf 0-5 [facility] Bilirubin Test strip Ql (U)O rdered By: David Ambriz on 05-28-2022 Bilirubin Ql (U) Negative Negative [facility] Ketones Test strip Ql (U)Ord ered By: David Ambriz on 05-28-2022 Ketones Ql (U) 5 mg/dl Negative [facility] Laboratory - Chemistry and C hemistry - challengeon 05-28-2022 Glucose [Mass/Vol] 242 mg/dL [facility] Bilirubin Ql (U) Small (1+) [facility] Glucose Ql (U) 1000 g/dL [facility] Ketones Ql (U) Negative [facility] pH (U) 6.5 [pH] [facility] Specific gravity (U) [Rel density] 1.020 [facility] HCG ( test) Ql (U) Negative [facility] Laboratory - Hematology and Cell countson 05-28-2022 Hemoglobin Ql (U) Small [facility] Laboratory - Specimen inform ationon 05-28-2022 Clarity (U) Cloudy [facility] Color (U) STRAW [facility] Laboratory - Urinalysison Nitrite Ql (U) Negative [facility] Protein Ql (U) 1+ [facility] Mucus LM Ql (Urine sed)Order ed By: David Ambriz on 05-28-2022 Mucus Ql (Urine sed) 0 SEEN /hpf [facility] Nitrite Test strip Ql (U)Ord ered By: David Ambriz on 05-28-2022 Nitrite Ql (U) Negative Negative [facility] No Panel Informationon 05-28 Urine Leukocytes Positive [facility] Urine Non-Hemolyzed Blood [facility] Protein Test strip Ql (U)Ord ered By: David Ambriz on 05-28-2022 Protein Ql (U) 30 mg/dl Negative [facility] Squamous epithelial cells de tection in urine sediment by light microscopyOrdered By: David Ambriz on 05-28-2022 Epithelial cells.squamous LM Ql (Urine sed) 5-10 SEEN /hpf 5-10 [facility] Urine blood detectionOrdered By: David Ambriz on 05-28-2022 RBC Ql (U) 50 /ul Negative [facility] RBC Ql (U) 0-5 SEEN /hpf 0-5 [facility] Urine clarityOrdered By: Jason Ambriz on 05-28-2022 Clarity (U) Sl. Cloudy Clear [facility] Urine color determinationOrd ered By: David Ambriz on 05-28-2022 Color (U) Yellow Yellow [facility] Urine glucose detectionOrder ed By: David Ambriz on 05-28-2022 Glucose Ql (U) 1000 mg/dl Normal [facility] Urine leukocyte esterase det ection by dipstickOrdered By: David Ambriz on 05-28-2022 Leukocyte esterase Test strip Ql (U) 100 /ul Negative [facility] Urine pHOrdered By: David odom on 05-28-2022 pH (U) 6.5 [pH] 5.0 - 8.0 [facility] Urine sediment bacteria coun t by microscopy (number/high power field)Ordered By: David Ambriz on 05-28-2022 Bacteria LM.HPF (Urine sed) [#/Area] 2 /[HPF] None Seen [facility] Urine specific gravity measu rementOrdered By: David Ambriz on 05-28-2022 Specific gravity (U) [Rel density] 1.015 1.002-1.030 [facility] Urobilinogen Auto test strip Ql (U)Ordered By: David Ambriz on 05-28-2022 Urobilinogen Ql (U) Normal mg/dl Normal [facility] C. trachomatis+N. gonorrhoea e DNA YURIY+probe Ql (Unsp spec)on 05-13-2022 C. trachomatis DNA YURIY+probe Ql (Unsp spec) Negative Negative for Chlamydia trachomatis by amplificaton [facility] N. gonorrhoeae DNA YURIY+probe Ql (Unsp spec) Negative Negative for Neisseria gonorrhoeae by amplification [facility] BACTERIAL VAGINOSIS AMPLIFIC ATIONon 05-12-2022 Lactobacillus crispatus+gasseri+jense kyle + Gardnerella vaginalis + Atopobium vaginae rRNA YURIY+probe Ql (Vag fld) Positive Abnormal Negative for bacterial vaginosis [facility] Lactobacillus crispatus+gasseri+jense kyle + Gardnerella vaginalis + Atopobium vaginae rRNA YURIY+probe Ql (Vag fld) Positive Abnormal Negative for bacterial vaginosis [facility] Comment on above: Order Comment: Speci men Type: BLOOD SPECIMEN Ordering Facility: [facility] Address: [address] [place] [address] Performed By: #### 5 5454-3 #### [facility] CLIA [id number] [address] [place] [address] [place] C. trachomatis+N. gonorrhoea e DNA YUIRY+probe Ql (Unsp spec)on 05-12-2022 C. trachomatis DNA YURIY+probe Ql (Unsp spec) Negative Normal Negative for Chlamydia trachomatis by amplificaton [facility] Comment on above: Order Comment: Speci men Type: SWAB Ordering Facility: [facility] Address: [address] [place] [phone] Performed By: #### 3 6902-5 #### [facility] CLIA [id number] [place] N. gonorrhoeae DNA YURIY+probe Ql (Unsp spec) Negative Normal Negative for Neisseria gonorrhoeae by amplification [facility] Comment on above: Order Comment: Speci men Type: SWAB Ordering Facility: [facility] Address: [address] [place] [address] Performed By: #### 3 6902-5 #### [facility] CLIA [id number] [facility] [address] [place] BAILEY / TRICHOMONAS AMPLIF ICATIONon 05-12-2022 C. glabrata RNA YURIY+probe Ql (Vag fld) Negative Negative for Bailey glabrata [facility] Bailey albicans, C. dubliniensis, C. parapsilosis, and C. tropicalis RNA YURIY+probe Ql (Vag fld) Positive Abnormal Negative for Bailey species [facility] T. vaginalis DNA YURIY+probe Ql (Unsp spec) Negative Negative for Trichomonas vaginalis by amplification [facility] BAILEY / TRICHOMONAS AMPLIFICATION BAILEY [employer]CI[employer] GROUP RNA: Positive for Bailey species BAILEY GLABRATA RNA: Negative for Bailey glabrata TRICH VAG AMPLIFICATION RNA: Negative for Trichomonas vaginalis by amplification Abnormal [facility] Comment on above: Performed By: #### 5 5454-3 #### [facility] CLIA [id number] [address] [place] [address] OF [facility] CNOVon 05-12-2022 CNOV Office Visit (THERESAWEmmy) ---- MONIQUE ACEVEDO ([id number]) 1985 F Date Time Provider Department 05/12/22 11:30 AM SAVANNAH VALVERDE During your visit today, we recorded the following information about you: Blood pressure Weight Last Period 118/78 108.9 kg 04/16/22 Savannah Valverde APRN.YUSUF 05/12/2022 12:59 PM Signed Messenger Office offered: Patient declines. Monique Acevedo is a [...] external genitalia normal, normal Bartholin's glands, urethra, [place]'s glands, no vulvar lesions, no cervical lesions, [...] full at bedtime every other night or 2 applicator every night x 2 weeks and [...] Date Reviewed: 05/12/2022 Reviewed by: Savannah Valverde APRN.FINISH REMOVER - Fully Assessed Reason for Visit: Vaginal Problem [117] Primary Visit Diagnosis:Vaginal discharge [N89.8] Other Visit Diagnoses:Folliculi tis [L73.9] Screen for STD (sexually transmitted disease) [Z11.3] Type 2 (more content not included)... Normal [facility] [id number] 05-06-2022 SARS-CoV-2 (COVID-19) RNA YURIY+probe Ql (Unsp spec) Negative Normal Negative [facility] ([place]) Comment on above: Performed By: #### C HANS BUTLER, AMRIT, JUAQUIN, CMP, GFR #### [address] [place] [address] [place], [place] [address] SARS-CoV-2 (COVID-19) RNA YURIY+probe Ql (Unsp spec) Normal [facility] ([place]) Comment on above: Result Comment: Nega [...] HANS BUTLER, AMRIT, ADABIEL, CMP, GFR #### [place] [address] [place], [place] [address] FLURSVon 05-06-2022 Flu A PCR (AO) Negative Normal Negative [facility] ([place]) Comment on above: Result Comment: Posi [...] virus (RSV) nucleic acid in nasopharyngeal swab (SENIOR BUSINESS MANAGER) specimens from patients with signs and symptoms of respiratory infection in conjunction with clinical and laboratory findings. The test is intended for use as an aid in the differential diagnosis of influenza A virus, influenza B virus, and RSV in humans and is not intended to detect influenza C. Performed By: #### C CARRIE, HANS, AMRIT, JUAQUIN, CMP, GFR #### [address] [address] Flu B PCR (AO) Negative Normal Negative [facility] ([place] Comment on above: Result Comment: Posi tive [...] virus (RSV) nucleic acid in nasopharyngeal swab (SENIOR BUSINESS MANAGER) specimens from patients with signs and symptoms of respiratory infection in conjunction with clinical and laboratory findings. The test is intended for use as an aid in the differential diagnosis of influenza A virus, influenza B virus, and RSV in humans and is not intended to detect influenza C. Performed By: #### C HANS BUTLER, JUAQUIN MARCUS, KAITLIN, GFR #### [place] [address] [place] [id number] RSV PCR (AO) Negative Normal Negative [facility] ([place]) Comment on above: Result Comment: Posi [...] virus (RSV) nucleic acid in nasopharyngeal swab (SENIOR BUSINESS MANAGER) specimens from patients with signs and symptoms of respiratory infection in conjunction with clinical and laboratory findings. The test is intended for use as an aid in the differential diagnosis of influenza A virus, influenza B virus, and RSV in humans and is not intended to detect influenza C. Performed By: #### C HANS BUTLER, JUAQUIN MARCUS, KAITLIN, GFR #### [place] [address] [place], [place] [address] LABORATORYOrdered By: Moon [place] on 05-05-2022 FLUAV [...] Sign Date: 04/24/2022 12:37:27 PM Ordering Provider: [facility] ([place] XR SPINE LUMBOSACRAL 2 OR 3 VIEWSon [...] Date: 04/24/2022 12:34:59 PM [facility]ing [facility] Chest PA and Lateralon IMPRESSION: Stable chest. No acute cardiopulmonary process. Guest Attendant: PSCB Transcribe Date/Time: Jun 02 2021 5:27P Dictated by : LUCINA JHA MD This examination was interpreted and the report reviewed and electronically signed by: LUCINA JHA MD on Jun 02 2021 5:28PM [facility] DIVISION OF RADIOLOGY * * *Final Report* [...] structures are intact DIVISION OF RADIOLOGY Provider, [facility] [place] - 06/02/2021 * * *Final Report* * [...] IMPRESSION: Stable chest. No acute cardiopulmonary process. Guest Attendant: PSCB Transcribe Date/Time: Jun 02 2021 5:27P Dictated by : LUCINA JHA MD This examination was interpreted and the report reviewed and electronically signed by: LUCINA JHA MD on Jun 02 2021 5:28PM [facility] Radiology Study observation (narrative) Karina sloan [facility] XR Chest PA and LateralOrder ed By: [facility]cf Provider on 06-02-2021 [facility] Coronavirus 2019on 0 COVID 19 Result 3D MODELER Normal Negative for COVID19 (SARS CoV2) by PCR. [facility] Comment on above: Result Comment: Nega tive for This test was developed and its performance characteristics determined by [facility] [place]. This test has been authorized by FDA [...] developed and its performance characteristics determined by [facility] [place]. This test has been authorized by FDA [...] developed and its performance characteristics determined by [facility] [place]. This test has been authorized by FDA [...] 2019. Coronavirus 2019on 0 COVID 19 Source 3D MODELER Normal [facility] Comment on above: Result Comment: Naso pharyngeal Corrected on 04/29 AT 0612: Previously reported as U Swab Corrected on 04/29 AT 0612: Previously reported as U COVID PCR, SCREENING CONGREG ATEon 11-08-2019 CORONAVIRUS 2019,PCR NOT DETECTED Normal Not Detected [facility] Comment on above: Result Comment: This assay [...] patient management decisions. Fact sheet for providers: https://www.fda.gov/media/559337/download Fact sheet for patients: https://www.fda.gov/media/926310/download This test has received FDA Emergency Use Authorization (EUA) and has been verified by [facility] ([facility]). This test is only authorized for the duration of time that circumstances exist to justify the authorization of the emergency use of in vitro diagnostic tests for the detection of SARS-CoV-2 virus and/or diagnosis of COVID-19 infection under section 564(b)(1) of the Act, 21 U.S.C. 360bbb-3(b)(1), unless the authorization is terminated or revoked sooner. [facility] ([facility]) is certified under CLIA-88 as qualified to perform high complexity testing. This tests analytical performance characteristics have been determined by [facility]. Testing is performed at [facility] is located at [address] [place] [address] (CLIA License #[id number], CAP #[id number]). Performed By: #### C VCLA #### [facility] [address] [place] [address] COVID PCR, SCREENING CONGREG ATEon 11-07-2019 Lab Specimen Source Nasal, Nasopharyngeal Normal [facility] Comment on above: Performed By: #### C VCLA #### [facility] [address] [place] [address] Vital Signs Date Time Vital Sign Value Performing Clinician Facility 12-09-2024 21:58-0400 Body temperature 98 [degF] Gideon Alford 3D MODELER-C Work Phone: [facility] 12-09-2024 21:58-0400 Diastolic blood pressure 83 mm[Hg] Gideon Alford NP-C Work Phone: [facility] 12-09-2024 21:58-0400 Heart rate 97 /min Gideon Alford NP-C Work Phone: [facility] 12-09-2024 21:58-0400 Respiratory rate 20 /min Gideon Alford 3D MODELER-C Work Phone: [facility] 12-09-2024 21:58-0400 SaO2% (BldA) [Mass fraction] 99 % Gideon Alford 3D MODELER-C Work Phone: [facility] 12-09-2024 21:58-0400 Systolic blood pressure 132 mm[Hg] Gideon Alford 3D MODELER-C Work Phone: [facility] 12-09-2024 20:08-0400 Body mass index (BMI) [Ratio] 34.7 kg/m2 Gideon Alford 3D MODELER-C Work Phone: [facility] 12-09-2024 20:08-0400 Body weight 100.5 kg Gideon Alford 3D MODELER-C Work Phone: [facility] 12-09-2024 19:55-0400 Body height 170.18 cm Gideon Alford 3D MODELER-C Work Phone: [facility] 11-03-2024 13:05-0400 Body height 170.18 cm Gideon Alford 3D MODELER-C Work Phone: [facility] 11-03-2024 13:05-0400 Body mass index (BMI) [Ratio] 34.6 kg/m2 Gideon Alford 3D MODELER-C Work Phone: [facility] 11-03-2024 13:05-0400 Body temperature 97.6 [degF] Gideon Alford 3D MODELER-C Work Phone: [facility] 11-03-2024 13:05-0400 Body weight 100.24 kg Gideon Alfodr 3D MODELER-C Work Phone: [facility] 11-03-2024 13:05-0400 Diastolic blood pressure 88 mm[Hg] Gideon Alford 3D MODELER-C Work Phone: [facility] 11-03-2024 13:05-0400 Heart rate 101 /min Gideon Alford 3D MODELER-C Work Phone: [facility] 11-03-2024 13:05-0400 Respiratory rate 16 /min Gideon Russelller 3D MODELER-C Work Phone: [facility] 11-03-2024 13:05-0400 SaO2% (BldA) [Mass fraction] 100 % Gideon Russelller 3D MODELER-C Work Phone: [facility] 11-03-2024 13:05-0400 Systolic blood pressure 147 mm[Hg] Gideon Lora 3D MODELER-C Work Phone: [facility] 03-24-2023 10:49-0500 Body temperature 97.88 [degF] ROSY KAPPER CRIMINAL RECORDS TECHNICIAN-FINISH REMOVER [facility] 03-24-2023 10:49-0500 Diastolic Blood Pressure Non-Invasive 64 1 ROSY LIZAER CRIMINAL RECORDS TECHNICIAN-FINISH REMOVER [facility] 03-24-2023 10:49-0500 Heart rate 74 /min ROSY KAPPER CRIMINAL RECORDS TECHNICIAN-FINISH REMOVER [facility] 03-24-2023 10:49-0500 Reason For Taking VItal Signs ROSY LIZAER CRIMINAL RECORDS TECHNICIAN-FINISH REMOVER [facility] 03-24-2023 10:49-0500 Respiratory rate 20 /min ROSY KAPPER CRIMINAL RECORDS TECHNICIAN-FINISH REMOVER [facility] 03-24-2023 10:49-0500 Systolic Blood Pressure Non-Invasive 112 1 ROSY KAPPER CRIMINAL RECORDS TECHNICIAN-FINISH REMOVER [facility] 03-24-2023 06:53-0500 Body temperature 97.88 [degF] ROSY KAPPER CRIMINAL RECORDS TECHNICIAN-FINISH REMOVER [facility] 03-24-2023 06:53-0500 Diastolic Blood Pressure Non-Invasive 108 1 ROSY KAPPER CRIMINAL RECORDS TECHNICIAN-FINISH REMOVER [facility] 03-24-2023 06:53-0500 Heart rate 79 /min ROSY KAPPER CRIMINAL RECORDS TECHNICIAN-FINISH REMOVER [facility] 03-24-2023 06:53-0500 Respiratory rate 20 /min ROSY KAPPER CRIMINAL RECORDS TECHNICIAN-FINISH REMOVER [facility] 03-24-2023 06:53-0500 Systolic Blood Pressure Non-Invasive 146 1 ROSY KAPPER CRIMINAL RECORDS TECHNICIAN-FINISH REMOVER [facility] 03-24-2023 03:33-0500 Body temperature 97.7 [degF] ROSY KAPPER CRIMINAL RECORDS TECHNICIAN-FINISH REMOVER [facility] 03-24-2023 03:33-0500 Diastolic Blood Pressure Non-Invasive 65 1 ROSY KAPPER CRIMINAL RECORDS TECHNICIAN-FINISH REMOVER [facility] 03-24-2023 03:33-0500 Heart rate 76 /min ROSY KAPPER CRIMINAL RECORDS TECHNICIAN-FINISH REMOVER [facility] 03-24-2023 03:33-0500 Reason For Taking VItal Signs ROSY KAPPER CRIMINAL RECORDS TECHNICIAN-FINISH REMOVER [facility] 03-24-2023 03:33-0500 Respiratory rate 18 /min ROSY KAPPER CRIMINAL RECORDS TECHNICIAN-FINISH REMOVER [facility] 03-24-2023 03:33-0500 Systolic Blood Pressure Non-Invasive 111 1 ROSY KAPPER CRIMINAL RECORDS TECHNICIAN-FINISH REMOVER [facility] 03-24-2023 02:27-0500 Heart rate 88 /min ROSY KAPPER CRIMINAL RECORDS TECHNICIAN-FINISH REMOVER [facility] 03-23-2023 23:16-0500 Heart rate 80 /min ROSY KAPPER CRIMINAL RECORDS TECHNICIAN-FINISH REMOVER [facility] 03-23-2023 23:16-0500 Reason For Taking VItal Signs ROSY KAPPER CRIMINAL RECORDS TECHNICIAN-FINISH REMOVER [facility] 03-23-2023 17:48-0500 Heart rate 84 /min ROSY KAPPER CRIMINAL RECORDS TECHNICIAN-FINISH REMOVER [facility] 03-23-2023 14:41-0500 Heart rate 82 /min ROSY KAPPER CRIMINAL RECORDS TECHNICIAN-FINISH REMOVER [facility] 03-23-2023 11:49-0500 Heart rate 76 /min ROSY KAPPER CRIMINAL RECORDS TECHNICIAN-FINISH REMOVER [facility] 03-22-2023 16:24-0500 Body weight 109.9 kg ROSY KAPPER CRIMINAL RECORDS TECHNICIAN-FINISH REMOVER [facility] 03-22-2023 16:11-0500 Body height 170.2 cm ROSY KAPPER CRIMINAL RECORDS TECHNICIAN-FINISH REMOVER [facility] 03-22-2023 16:11-0500 Body weight 108.9 kg ROSY KAPPER CRIMINAL RECORDS TECHNICIAN-FINISH REMOVER [facility] 03-22-2023 16:11-0500 Body weight 37.59 kg/m2 ROSY KAPPER CRIMINAL RECORDS TECHNICIAN-FINISH REMOVER [facility] 03-22-2023 15:03-0500 Heart rate 82 /min ROSY KAPPER CRIMINAL RECORDS TECHNICIAN-FINISH REMOVER [facility] 03-02-2023 00:13-0400 Diastolic Blood Pressure Non-Invasive 86 1 BRITNEY MCLEOD MD [facility] 03-02-2023 00:13-0400 Heart rate 76 /min BRITNEY MCLEOD MD [facility] 03-02-2023 00:13-0400 Respiratory rate 20 /min BRITNEY MCLEOD MD [facility] 03-02-2023 00:13-0400 Systolic Blood Pressure Non-Invasive 134 1 BRITNEY MCLEOD MD [facility] 03-01-2023 22:44-0400 Diastolic Blood Pressure Non-Invasive 76 1 BRITNEY MCLEOD MD [facility] 03-01-2023 22:44-0400 Heart rate 80 /min BRITNEY MCLEOD MD [facility] 03-01-2023 22:44-0400 Respiratory rate 18 /min BRITNEY MCLEOD MD [facility] 03-01-2023 22:44-0400 Systolic Blood Pressure Non-Invasive 124 1 BRITNEY MCLEOD MD [facility] 03-01-2023 21:17-0400 Diastolic Blood Pressure Non-Invasive 74 1 BRITNEY MCLEOD MD [facility] 03-01-2023 21:17-0400 Heart rate 89 /min BRITNEY MCLEOD MD [facility] 03-01-2023 21:17-0400 Respiratory rate 18 /min BRITNEY MCLEOD MD [facility] 03-01-2023 21:17-0400 Systolic Blood Pressure Non-Invasive 115 1 BRITNEY MCLEOD MD [facility] 03-01-2023 19:18-0400 Body temperature 97.88 [degF] BRITNEY MCLEOD MD [facility] 03-01-2023 19:18-0400 Body weight 109.1 kg BRITNEY MCLEOD MD [facility] 08-25-2022 15:47-0400 Diastolic Blood Pressure Non-Invasive 79 1 DEL FROMMELT DO [facility] 08-25-2022 15:47-0400 Heart rate 81 /min DEL FROMMELT DO [facility] 08-25-2022 15:47-0400 Respiratory rate 16 /min DEL FROMMELT DO [facility] 08-25-2022 15:47-0400 Systolic Blood Pressure Non-Invasive 144 1 DEL FROMMELT DO [facility] 08-25-2022 13:45-0400 Body temperature 98.78 [degF] DEL FROMMELT DO [facility] 08-25-2022 13:45-0400 Body weight 110.8 kg DEL FROMMELT DO [facility] 08-25-2022 13:45-0400 Diastolic Blood Pressure Non-Invasive 97 1 DEL FROMMELT DO [facility] 08-25-2022 13:45-0400 Heart rate 99 /min DEL FROMMELT DO [facility] 08-25-2022 13:45-0400 Respiratory rate 18 /min DEL FROMMELT DO [facility] 08-25-2022 13:45-0400 Systolic Blood Pressure Non-Invasive 135 1 DEL FROMMELT DO [facility] 05-28-2022 09:49-0500 Body temperature 97.8 [degF] Dr. Geoffrey White Work Phone: [facility] 05-28-2022 09:49-0500 Diastolic blood pressure 92 mm[Hg] Dr. Geoffrey White Work Phone: [facility] 05-28-2022 09:49-0500 Heart rate 92 /min Dr. Geoffrey White Work Phone: [facility] 05-28-2022 09:49-0500 Respiratory rate 18 /min Dr. Geoffrey White Work Phone: [facility] 05-28-2022 09:49-0500 SaO2% (BldA) [Mass fraction] 97 % Dr. Geoffrey White Work Phone: [facility] 05-28-2022 09:49-0500 Systolic blood pressure 136 mm[Hg] Dr. Geoffrey White Work Phone: [facility] 05-12-2022 11:35-0500 Body weight 108.86 kg Savannah Valverde APRN.FINISH REMOVER Work Phone: [facility] 05-12-2022 11:35-0500 Diastolic blood pressure 78 mm[Hg] Savannah Valverde APRN.FINISH REMOVER Work Phone: [facility] 05-12-2022 11:35-0500 Systolic blood pressure 118 mm[Hg] Savannah Valverde APRN.FINISH REMOVER Work Phone: [facility] 05-05-2022 20:48-0500 Blood Pressure Cuff Size DR KENDAL HERMAN DO [facility] 05-05-2022 20:48-[address] KENDAL HERMAN DO [facility] 05-05-2022 20:48-[address] KENDAL HERMAN DO [facility] 05-05-2022 20:48-0500 Body height 170.[address] KENDAL HERMAN DO [facility] 05-05-2022 20:48-0500 Body temperature 98.06 [degF] DR KENDAL HERMAN DO [facility] 05-05-2022 20:48-0500 Body weight 109.[address] KENDAL HERMAN DO [facility] 05-05-2022 20:48-0500 Diastolic Blood Pressure Non-Invasive [address] KENDAL HERMAN DO [facility] 05-05-2022 20:48-0500 Heart rate 115 /min DR KENDAL HERMAN DO [facility] 05-05-2022 20:48-0500 Respiratory rate 20 /min DR KENDAL HERMAN DO [facility] 05-05-2022 20:48-0500 Systolic Blood Pressure Non-Invasive [address] KENDAL HERMAN DO [facility] 04-24-2022 11:34-0500 Body temperature 98.6 [degF] ALESSIA KAUR MD [facility] 04-24-2022 11:34-0500 Diastolic Blood Pressure Non-Invasive 84 1 ALESSIA KAUR MD [facility] 04-24-2022 11:34-0500 Heart rate 98 /min ALESSIA KAUR MD [facility] 04-24-2022 11:34-0500 Respiratory rate 18 /min ALESSIA KARU MD [facility] 04-24-2022 11:34-0500 Systolic Blood Pressure Non-Invasive 132 1 ALESSIA KAUR MD [facility] 11-10-2021 10:44-0400 Body height 170.2 cm Talia Perez APRN.CNP Work Phone: [facility] 11-10-2021 10:44-0400 Body weight 109.77 kg Talia Perez CRIMINAL RECORDS TECHNICIAN.FINISH REMOVER Work Phone: [facility] 09-10-2021 09:56-0400 Body weight 109.32 kg Savannah Valverde CRIMINAL RECORDS TECHNICIAN.FINISH REMOVER Work Phone: [facility] 09-10-2021 09:56-0400 Diastolic blood pressure 82 mm[Hg] Savannah Valverde CRIMINAL RECORDS TECHNICIAN.FINISH REMOVER Work Phone: [facility] 09-10-2021 09:56-0400 Systolic blood pressure 132 mm[Hg] Savannah Valverde CRIMINAL RECORDS TECHNICIAN.FINISH REMOVER Work Phone: [facility] 07-16-2021 11:36-0500 Body temperature 98.6 [degF] Dr. Geoffrey White Work Phone: [facility] Work Phone: 07-16-2021 11:36-0500 Diastolic blood pressure 80 mm[Hg] Dr. Geoffrey White Work Phone: [facility] Work Phone: 07-16-2021 11:36-0500 Heart rate 83 /min Dr. Geoffrey White Work Phone: [facility] Work Phone: 07-16-2021 11:36-0500 Respiratory rate 18 /min Dr. Geoffrey White Work Phone: [facility] Work Phone: 07-16-2021 11:36-0500 SaO2% (BldA) [Mass fraction] 97 % Dr. Geoffrey White Work Phone: [facility] Work Phone: 07-16-2021 11:36-0500 Systolic blood pressure 130 mm[Hg] Dr. Geoffrey White Work Phone: [facility] Work Phone: 05-22-2021 20:12-0500 Body temperature 98.78 [degF] TRAV CORLEY MD [facility] 05-22-2021 20:12-0500 Diastolic blood pressure 95 mm[Hg] TRAV CORLEY MD [facility] 05-22-2021 20:12-0500 Heart rate 102 /min TRAV CORLEY MD [facility] 05-22-2021 20:12-0500 Respiratory rate 18 /min TRAV CORLEY MD [facility] 05-22-2021 20:12-0500 Systolic blood pressure 157 mm[Hg] TRAV CORLEY MD [facility] Encounters Encounter Date Encounter Type Care Provider Facility Start: 02-25-2025 End: 02-25-2025 ambulatory Zebulun Beam VSC Facility:[facility] Start: 01-29-2025 End: 01-29-2025 ambulatory Gideon Alford 3D MODELER-C Work Phone: -Laboratory Start: 01-29-2025 End: 01-29-2025 Patient encounter procedure Zebulun Beam 3D MODELER-C -Laboratory Work Phone: Start: 01-29-2025 End: 01-29-2025 ambulatory Zebulun Beam VSC Facility:[facility] Start: 12-09-2024 End: 12-09-2024 Emergency department patient visit Gideon Alford NP-C Work Phone: -Emergency Department Work Phone: Start: 11-03-2024 End: 11-03-2024 Emergency department patient visit Gideon Alford 3D MODELER-C Work Phone: -Emergency Department Work Phone: Start: 05-03-2024 End: 05-04-2024 Emergency department patient visit John Echevarria Facility:[facility] Start: 03-22-2023 End: 03-24-2023 Evaluation and management of inpatient ROSY Booth LIZAGUILLERMO CRIMINAL RECORDS TECHNICIAN-FINISH REMOVER Facility:[facility] Start: 03-22-2023 End: 03-24-2023 Evaluation and management of inpatient ROSY Booth EMILIE CRIMINAL RECORDS TECHNICIAN-FINISH REMOVER [facility] Start: 03-01-2023 End: 03-02-2023 Emergency department patient visit BRITNEY MCLEOD MD Facility:[facility] Start: 03-01-2023 End: 03-02-2023 Emergency department patient visit BRITNEY MCLEOD MD [facility] Start: 09-11-2022 Telephone encounter Lupe Camargo ioce CRIMINAL RECORDS TECHNICIAN.FINISH REMOVER Work Phone: Endocrinology Comment on above: Results Start: 09-08-2022 End: 09-09-2022 ambulatory LUPE C CIOCE Facility:[facility] Start: 09-08-2022 End: 09-09-2022 ambulatory LUPE C CIOCE Facility:[facility] Start: 09-08-2022 End: 09-08-2022 Patient encounter procedure Lupe C Cioce CRIMINAL RECORDS TECHNICIAN.FINISH REMOVER Work Phone: Endocrinology Comment on above: Poorly controlled ty pe 2 diabetes mellitus (HCC) (Primary Dx) Start: 08-25-2022 End: 08-25-2022 Emergency department patient visit DEL ACOSTA DO Facility:[facility] Start: 08-25-2022 End: 08-25-2022 Emergency department patient visit [facility] Start: 06-02-2022 ambulatory DOCTOR ON [facility] Start: 05-28-2022 End: 05-28-[address] Geoffrey White Work Phone: [facility] Work Phone: Start: 05-28-2022 End: 05-28-[address] Geoffrey White Work Phone: [facility]-Laboratory, Specimen Start: 05-28-2022 End: 05-28-[address] Geoffrey White Work Phone: [facility] Start: 05-12-2022 End: 05-12-2022 ambulatory GEOFFREY WHITE Facility:[facility] Start: 05-12-2022 End: 05-12-2022 Patient encounter procedure Savannah Valverde APRN.FINISH REMOVER Work Phone: OB/Gynecology Comment on above: Vaginal [...] department patient visit DR KENDAL HERMAN DO [facility] Start: 04-24-2022 End: 04-24-2022 Emergency department patient visit ALESSIA KAUR MD Facility:[facility] Start: 04-24-2022 End: 04-24-2022 Emergency department patient visit ALESSIA KAUR MD [facility] Start: 03-19-2022 End: 03-19-2022 ambulatory Sue Mg PhD Work Phone: Endocrinology [facility] Comment on above: NO SHOW (Primary Dx) Start: 03-19-2022 End: 03-19-2022 Telemedicine consultation with patient Sue Mg PhD Work Phone: [facility] Start: 11-10-2021 End: 11-10-2021 ambulatory Talia Perez APRN.FINISH REMOVER Work Phone: Internal Medicine [facility] Comment on above: Obesity, Class II, B ME 35-39.9 (Primary Dx); Type 2 diabetes mellitus without complication, without long-term current use of insulin (HCC) Start: 11-10-2021 End: 11-10-2021 Telemedicine consultation with patient Talia Perez APRN.FINISH REMOVER Work Phone: [facility] Start: 10-26-2021 End: 10-26-2021 Patient encounter procedure Deedee Cotton PA-C Work Phone: Orthopaedics Comment on above: Medial epicondylitis of left elbow (Primary Dx); Family history of rheumatism Start: 09-10-2021 End: 09-10-2021 Patient encounter procedure Savannah Valverde APRN.FINISH REMOVER Work Phone: OB/Gynecology Comment on above: Vaginal discharge (P rimary Dx); Vaginal odor; Screen for STD (sexually transmitted disease); Menorrhagia with regular cycle; Dysmenorrhea Start: 07-16-2021 End: 07-16-[address] Geoffrey White Work Phone: [facility] Start: 06-02-2021 End: 06-02-2021 Subsequent hospital visit by physician Xr [facility] Work Phone: Radiology Comment on above: COVID-19 [U07.1] Start: 05-22-2021 End: 05-22-2021 Emergency department patient visit TRAV CORLEY MD [facility] Procedures Date Procedure Procedure Detail Performing Clinician Start: 12-09-2024 X-ray of knee, four or more views Gideon Alford 3D MODELERAryaC Work Phone: Start: 12-09-2024 X-ray of lumbar spin e, two or three views Gideon CHOC Work Phone: Start: 05-12-2022 BACTERIAL VAGINOSIS AMPLIFICATION Savannah Valverde CRIMINAL RECORDS TECHNICIAN.FINISH REMOVER Work Phone: Start: 05-12-2022 Iadna chlamydia trac homatis amplified probe tq Savannah Valverde CRIMINAL RECORDS TECHNICIAN.FINISH REMOVER Work Phone: Start: 07-16-2021 Plain chest X-ray Dr. Raman White Work Phone: Start: 06-02-2021 Radiologic exam ches t 2 views Belgica Antolin CRIMINAL RECORDS TECHNICIAN.FINISH REMOVER Work Phone: Start: 02-04-2021 Adult depression scr eening assessment Savannah Valverde CRIMINAL RECORDS TECHNICIAN.FINISH REMOVER Work Phone: Deliveries by cinthya mccann (finding) TRAV CORLEY MD Comment on above: x 3 H/O: tubal ligation ROSY BASILIA MARIE CRIMINAL RECORDS TECHNICIAN-FINISH REMOVER Urine culture Dr. Geoffrey enriquez Work Phone: Plan of Treatment Date Care Activity Detail Author Start: 03-03-2026 HPV TESTING HPV TESTING [facility] Start: 03-03-2026 PAP TESTING PAP TESTING [facility] Start: 03-03-2026 Screening for malign ant neoplasm of cervix Cervical Cancer Screening [facility] Start: 12-09-2024 End: 12-09-2024 [facility] Start: 11-03-2024 [facility] Start: 11-03-2024 Puncture aspiration abscess hematoma bulla/cyst PNXR ASPIR ABSC HMTMA BULLA [facility] Start: 01-15-2024 Covid-19 Vaccine ( season) Covid-19 Vaccine ( season) [facility] Start: 01-15-2024 Influenza vaccination Influenza Vacc ine (#1) [facility] Start: 09-09-2023 Hepatitis B screening URINE ALBUMIN:CREATININE RATIO [facility] Start: 09-09-2023 Hepatitis B surface antibody level LDL CHOLESTEROL [facility] Start: 02-13-2023 End: 04-15-2023 ALBUMIN/CREAT RATIO RND UR ALBUMIN/CREAT RATIO RND UR Lab Routine Poorly controlled type 2 diabetes mellitus (HCC) Expected: 02/13/2023, Expires: 04/15/2023 [facility] Work Phone: Comment on above: Expected: 02/13/2023 , Expires: 04/15/2023 Start: 02-13-2023 End: 04-15-2023 Comprehensive metabolic 2000 panel - Serum or Plasma COMP METABOLIC PANEL Lab Routine Poorly controlled type 2 diabetes mellitus (HCC) Expected: 02/13/2023, Expires: 04/15/2023 [facility] Work Phone: Comment on above: Expected: 02/13/2023 , Expires: 04/15/2023 Start: 02-13-2023 End: 04-15-2023 Hemoglobin A1c in Blood HGB A1C Lab Routine Poorly controlled type 2 diabetes mellitus (HCC) Expected: 02/13/2023, Expires: 04/15/2023 [facility] Work Phone: Comment on above: Expected: 02/13/2023 , Expires: 04/15/2023 Start: 02-13-2023 End: 04-15-2023 LIPID PANEL, NONFASTING LIPID PANEL, NONFASTING Lab Routine Poorly controlled type 2 diabetes mellitus (HCC) Expected: 02/13/2023, Expires: 04/15/2023 [facility] Work Phone: Comment on above: Expected: 02/13/2023 , Expires: 04/15/2023 Start: 01-14-2023 Influenza vaccination INFLUENZ A (Season Ended) [facility] Start: 12-08-2022 Hemoglobin A1c measurement HbA1C [facility] Start: 12-08-2022 Hemoglobin A1c/Hemoglobin.total in Blood HBA1C [facility] Start: 11-10-2022 ANNUAL PCP TEAM ALTERNATIVE MEDICINE PRACTITIONER JEANNE DISEASE VISIT ANNUAL PCP TEAM CHRONIC DISEASE VISIT [facility] Start: 09-08-2022 End: 11-08-2022 25-hydroxyvitamin D3 [Mass/volume] in Serum or Plasma [facility] Work Phone: Comment on above: Expected: 09/08/2022 , Expires: 11/08/2022 Start: 09-08-2022 End: 11-08-2022 ALBUMIN/CREAT RATIO RND UR [facility] Work Phone: Comment on above: Expected: 09/08/2022 , Expires: 11/08/2022 Start: 09-08-2022 End: 11-08-2022 Glutamate decarboxylase 65 Ab [Units/volume] in Serum [facility] Work Phone: Comment on above: Expected: 09/08/2022 , Expires: 11/08/2022 Start: 09-08-2022 End: 11-08-2022 Pancreatic islet cell Ab [Titer] in Serum [facility] Work Phone: Comment on above: Expected: 09/08/2022 , Expires: 11/08/2022 Start: 09-08-2022 End: 11-08-2022 THYROID PEROXIDASE ANTIBODY BLOOD [facility] Work Phone: Comment on above: Expected: 09/08/2022 , Expires: 11/08/2022 Start: 05-16-2022 DEPRESSION ASSESSMENT DEPRESSION ASS ESSMENT [facility] Start: 03-18-2022 ANNUAL PCP TEAM ALTERNATIVE MEDICINE PRACTITIONER JEANNE DISEASE VISIT ANNUAL PCP TEAM CHRONIC DISEASE VISIT [facility] Start: 03-18-2022 COVID-19 VACCINE (#1) COVID-19 VACCI NE (#1) [facility] Comment on above: Postponed from 11/19 (Declined at this time) Start: 03-18-2022 COVID-19 VACCINE (1) COVID-19 VACCIN E (1) [facility] Comment on above: Postponed from 11/19 (Declined at this time) Start: 03-18-2022 ONE PNEUMOVAX PRIOR TO AGE 65 ONE PNEUMOVAX PRIOR TO AGE 65 [facility] Comment on above: Postponed from 11/19 (Declined at this time) Start: 03-18-2022 PNEUMOCOCCAL (1 - PCV) PNEUMOCOCCAL (1 - PCV) [facility] Comment on above: Postponed from 11/19 (Declined at this time) Start: 03-18-2022 Urine microalbumin profile DTAP,TDAP,TD (1 - Tdap) [facility] Comment on above: Postponed from 11/19 (Declined at this time) Start: 02-04-2022 Adult depression screening assessment DEPRESSION SCREENING [facility] Start: 02-03-2022 Hepatitis B surface antibody level LDL CHOLESTEROL [facility] Start: 01-14-2022 Influenza vaccination C [facility] Start: 10-26-2021 End: 12-26-2021 C reactive protein [Mass/volume] in Serum or Plasma C-REACTIVE PROTEIN (CRP) Lab Routine Family history of rheumatism Expected: 10/26/2021, Expires: 12/26/2021 [facility] Work Phone: Comment on above: Expected: 10/26/2021 , Expires: 12/26/2021 Start: 10-26-2021 End: 12-26-2021 Erythrocyte sedimentation rate SED RATE WESTERGREN Lab Routine Family history of rheumatism Expected: 10/26/2021, Expires: 12/26/2021 [facility] Work Phone: Comment on above: Expected: 10/26/2021 , Expires: 12/26/2021 Start: 10-26-2021 End: 12-26-2021 Nuclear Ab [Presence] in Serum by Immunoassay LUCIANA BLOOD Lab Routine Family history of rheumatism Expected: 10/26/2021, Expires: 12/26/2021 [facility] Work Phone: Comment on above: Expected: 10/26/2021 , Expires: 12/26/2021 Start: 10-26-2021 End: 12-26-2021 Rheumatoid factor [Units/volume] in Serum or Plasma RHEUMATOID FACTOR BL Lab Routine Family history of rheumatism Expected: 10/26/2021, Expires: 12/26/2021 [facility] Work Phone: Comment on above: Expected: 10/26/2021 , Expires: 12/26/2021 Start: 08-03-2021 Hemoglobin A1c/Hemoglobin.total in Blood HBA1C [facility] Start: 05-16-2021 DEPRESSION ASSESSMENT DEPRESSION ASS ESSMENT [facility] Start: 07-10-2015 Glaucoma screening Dilated Retinal E xam [facility] Start: 07-10-2015 Hepatitis C antibody , confirmatory test DILATED RETINAL EXAM [facility] Start: 2005 HEPATITIS B (1 of 3 - Risk 3-dose series) HEPATITIS B (1 of 3 - Risk 3-dose series) [facility] Start: 2005 Hepatitis B Vaccine (1 of 3 - 19+ 3-dose series) Hepatitis B Vaccine (1 of 3 - 19+ 3-dose series) [facility] Start: 2005 Urine microalbumin profile [facility] Start: 2004 Anxiety Screening Anxiety Screening [facility] Start: 2004 Depression Screening Depression Scre ening [facility] Start: 2004 HEPATITIS C SCREENING HEPATITIS C [facility] Start: 2004 Hepatitis C screening Hepatitis C Sc [facility] Start: 1996 3 comp foot exam completed DIABETIC FOOT EXAM [facility] Start: 1996 Diabetic foot examination Diabetic Foot Exam [facility] Start: 1996 Hepatitis B screening URINE ALBUMIN:CREATININE RATIO [facility] Start: 1992 PNEUMOCOCCAL (1 - PCV) PNEUMOCOCCAL (1 - PCV) [facility] Start: 1992 Pneumococcal vaccination Pneum ococcal Vaccine (1 of 2 - PCV) [facility] Start: 05-22-1987 COVID-19 VACCINE (#1) COVID-19 VACCI NE (#1) [facility] Start: 1986 HEPATITIS B (1 of 3 - 3-dose series) HEPATITIS B (1 of 3 - 3-dose series) [facility] Chlamydia trachomatis+Neisseria gonorrhoeae DNA [Presence] in Unspecified specimen by YURIY with probe detection GC/CHLAMYDIA DNA DET Lab Routine Screen for STD (sexually transmitted disease) Vaginal discharge Vaginal odor 09/10/2021 10:26 AM EDT [facility] Work Phone: Insertion intrauteri ne device iud INSERT INTRAUTERINE DEVICE Procedures Routine Menorrhagia with regular cycle Dysmenorrhea Ordered: 09/10/2021 [facility] Work Phone: Comment on above: Ordered: 09/10/2021 Microscopic observat ion [Identifier] in Vaginal fluid by Gram stain BACT/BAILEY VAG GRAM STAIN Microbiology Routine Vaginal odor Vaginal discharge 09/10/2021 10:26 AM EDT [facility] Work Phone: Patient Education [facility] Work Phone: Patient referral [facility] Work Phone: Trichomonas vaginali s Ag [Presence] in Genital specimen by Immunoassay TRICHOMONAS PREP/ANTIGEN Microbiology Routine Screen for STD (sexually transmitted disease) Vaginal discharge Vaginal odor 09/10/2021 10:26 AM EDT [facility] Work Phone: Urinalysis complete panel - Urine 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 2014 Medicaid [id number] 2014 Unknown [id number] 1986 Unknown [id number] 1986 Unknown [id number] 1986 Unknown [id number] 1986 Unknown [id number] 1986 Unknown [id number] Unknown [id number] Unknown [id number] Unknown [id number] Unknown [id number] Unknown [id number] Unknown [id number] Social History Date Type Detail Facility Start: 08-27-2018 Heavy tobacco smoker (finding) [facility] Start: 1985 Sex Assigned At Female A [facility] Start: 07-16-2021 End: 05-28-2022 Tobacco smoking status [facility] Unknown if ever smoked [facility] Start: 03-30-2019 End: 12-09-2024 Tobacco smoking status MNIS Smokes tobacco daily [facility] Work Phone: Start: 08-18-2003 End: 08-17-2014 History of tobacco use Cigarette Smoker [facility] Work Phone: Start: 03-30-2019 End: 04-20-2020 Cigarettes smoked current (pack per day) - Reported 1 [facility] Start: 03-30-2019 End: 03-03-2021 Tobacco use and exposure Smokeless tobacco non-user [facility] Work Phone: Start: 06-02-2021 End: 09-10-2021 Alcohol intake Current drinker of alcohol (finding) [facility] Start: 02-04-2021 History SDOH Alcohol Frequency 3 [facility] Start: 02-04-2021 End: 03-18-2021 History SDOH Alcohol Std Drinks 2 [facility] Start: 03-30-2019 History SDOH Alcohol Comment socially [facility] Start: 02-04-2021 End: 03-18-2021 History SDOH Social Connections [facility] 1 [facility] Start: 02-04-2021 History SDOH Social Connections Living 7 [facility] Start: 02-04-2021 History SDOH Stress 5 [facility] Start: 02-04-2021 Education 14 [facility] Start: 1985 Sex Assigned At Not on file [facility] Start: 10-16-2021 End: 10-26-2021 Exposure to SARS-CoV-2 (event) Not sure [facility] Start: 04-20-2020 End: 02-04-2021 Social connection and isolation panel [facility] Do you belong to any clubs or organizations such as anglican groups, unions, fraternal or athletic groups, or school groups? No [facility] Are you now , , , , never or living with a partner? Never [facility] How often to you hav e a drink containing alcohol? 2-4 times a month [facility] How many standard dr inks containing alcohol do you have on a typical day? 3 or 4 [facility] How often do you hav e 6 or more drinks on 1 occasion? Less than monthly [facility] How hard is it for y ou to pay for the very basics like food, housing, medical care, and heating Somewhat hard [facility] Adult Depression Scr eening Assessment 0 [facility] Do you feel stress - tense, restless, nervous, or anxious, or unable to sleep at night because your mind is troubled all the time - these days [OSQ] Very much [facility] (I/We) worried robert er (my/our) food would run out before (I/we) got money to buy more. Never true [facility] Start: 05-03-2021 End: 06-02-2021 Exposure to SARS-CoV-2 (event) Yes [facility] Medical Equipment Procedure Code Equipment Code [...] Nurse Candice sharma q2hrs Performed Other: 7AM-115PM [facility] 03-24-2023 Functional Status Room check performed [facility] 03-23-2023 Functional Status [facility] 03-23-2023 Functional Status [facility] 03-23-2023 Functional Status [facility] 03-23-2023 Functional Status [facility] 03-23-2023 Functional Status [facility] 03-23-2023 Functional Status Driving, 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, 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, Housework, Laundry, Meal preparation, Personal ADL, Shopping [facility] 03-23-2023 Functional Status [facility] 03-23-2023 Functional Status Shower Independent [facility] 03-22-2023 Functional Status None [facility] 03-02-2023 Functional Status Independent [facility] 03-01-2023 Functional Status Standard Safet y ID band on, Call device within reach, Bed in low position, Wheels locked, Upper/Half-Length side-rails up, Bedside Cart Locked, Safety level maintained [facility] 08-25-2022 Functional Status Ambulation in [facility] 08-25-2022 Functional Status Standard Safet y ID band on, Call device within reach, Bed in low position, Wheels locked, Phone within reach [facility] 05-05-2022 Functional Status Independent [facility] 04-24-2022 Functional Status Standard Safet y ID band on, Call device within reach, Bed in low position, Wheels locked, Upper/Half-Length side-rails up, Phone within reach, personal items within reach, Assistive devices within reach, Toileting device within reach, Bedside Cart Locked, Safety level maintained [facility] Mental Status Date Assessment Result Facility 03-24-2023 Mental Status Oriented x 4 [facility] 03-23-2023 Mental Status [facility] 03-23-2023 Mental Status [facility] 03-02-2023 Mental Status Orientation Oriented x 4 [facility] 03-01-2023 Mental Status [facility] 08-25-2022 Mental Status Orientation Oriented x 4 [facility] 08-25-2022 Mental Status [facility] 05-05-2022 Mental Status Oriented x 4 [facility] 04-24-2022 Mental Status Orientation Oriented x 4 [facility] Clinical Notes 2014 to 12-09-2024 Note Date & Type Note Facility 12-09-2024 Discharge summary [facility] 12-09-2024 Radiology Diagnostic study note [facility] Imaging Services [address] [place] [address] Lumbar Spine 2 or 3 Views MR#: [id number] Acct: [id number] Name: MONIQUE ACEVEDO Rep #: [id number] : 1985 F 39 From: Moni Gallego MD PCP: Gideon Alford, 3D MODELER-C Status: REG E R Study:Lumbar Spine 2 or 3 Views Date of Exam: 12/09/24 Exam# [id number] Ordering Dr: Jatin Tolliver MD PROCEDURE: LUMBAR SPINE 2 OR 3 VIEWS 12/09/2024 REASON FOR EXAM: TRAUMA TECHNIQUE: LUMBAR SPINE 2 OR 3 VIEWS COMPARISON: No FINDINGS: Mild lumbosacral scoliosis. Very mild lower lumbar spine degeneration, mainly L4 through S1 facet arthritis. Mild L5-S1 disc space narrowing. No acute fracture or dislocation. No soft tissue injury. RAD/Lumbar Spine 2 or 3 Views IMPRESSION: No acute findings [facility] CC: 3D MODELER-C Gideon Alford; Dr. Jatin Tolliver MD ~ Guest Attendant: Signed [facility] 12-09-2024 Radiology Diagnostic study note [facility] [address] [place] [address] Knee 4 or More Views MR#: [id number] Acct: [id number] Name: MONIQUE ACEVEDOGH Rep #: [id number] : 1985 F 39 From: Moni Gallego MD PCP: SONIA Lopez Status: REG E R Study:Knee 4 or More Views Date of Exam: 12/09/24 Exam# [id number] Ordering Dr: Jatin Tolliver MD PROCEDURE: KNEE 4 OR MORE VIEWS 12/09/2024 REASON FOR EXAM: TRAUMA TECHNIQUE: KNEE 4 OR MORE VIEWS COMPARISON: No FINDINGS: No fracture, dislocation, or joint effusion. No degeneration. RAD/Knee 4 or More Views IMPRESSION: Normal exam [facility] CC: 3D MODELERKaylie Alford; Dr. Jatin Tolliver MD ~ Guest Attendant: Signed [facility] 12-09-2024 Discharge summary Note Date/Time December 09, 2024 9:59pm [facility] Medical Records Department [address] [place] [address] Emergency Department Summary 12/09/24 MR#: [id number] Acct: [id number] Name: MONIQUE ACEVEDO Rep #:[id number] : 1985 39 From: Jatin Tolliver MD PCP: SONIA Lopez Status:REG E R Location: ED HPI HPI - Fall History of Present Illness Chief Complaint: Fall Narrative Narrative: 39-year-old female presents with injury to her left knee and low back that she sustained this morning at 8 AM, approximately 12 hours ago when she fell down the basement stairs. There is a loose stair and she only fell down 3 or 4 stairs. No hitting of her head or loss of consciousness. She was able to get up and go about her day, however things started tightening up. She states that she was unable to get up at 1 point because of pain in her posterior knee. She may have felt a pop in that area. Additionally, she has pain in her low back isworse with movement where she hit it against the stairs. She denies other injuries. [facility] Medical History Contact with and (suspected) exposure to other viral communicable diseases Acute pharyngitis, unspecified Acute bronchitis, unspecified Sebaceous cyst of left axilla Encounter for screening for COVID-19 Home Medications ?Medication ?Instructions ?Recorded ?Last Taken ?Type ibuprofen 600 mg tablet 600 mg PO Q6H PRN PRN Pain S core 10/10/20 Unknown Rx 1-02/22 #20 tabs cephalexin 500 mg capsule 500 mg PO Q6 #20 CAPSULES Unknown Rx ibuprofen 600 mg tablet 600 mg PO Q6H PRN PRN pain # 20 11/03/24 Unknown Rx TABLETS sulfamethoxazole 800 1 tab PO BID #10 TABLETS Unknown Rx mg-trimethoprim 160 mg tablet cyclobenzaprine 10 mg tablet 10 mg PO TID PRN Muscle S pasm #20 12/09/24 Unknown Rx TABLETS naproxen 500 mg tablet (Naprosyn) 500 mg PO BID PRN pa in #20 tabs 12/09/24 Unknown Rx Allergy/AdvReac Type Severity Reaction Status Date / Time No Known Allergies Allergy Verified 12/09/24 19:55 Surgical History History of Social History Smoking Status: Current every day smoker tobacco type: cigarettes alcohol intake: never ROS ROS ED ROS Narrative Review of systems positive for low back pain worse with movement, left posteriorknee pain also worse with movement. Positive spasming of left lower extremity. Denies other injuries. No loss of bowel or bladder. No hitting of head, no loss of consciousness. EXAM Physical Exam Narrative Exam Narrative: GCS 15. ABCs are intact. Cardiovascular examination reveals mild tachycardia just above 100 bpm. Lungs are clear to auscultation bilaterally. Abdomen is soft and nontender with normoactive bowel sounds. Mild tenderness to palpation diffusely lumbar spine area. No noted ecchymosis. No bony step-off. She is neurovascular tact of the bilateral lower extremities, EHL intact bilaterally. Diffuse tenderness to palpation left knee both anteriorly and posteriorly, no noted ecchymosis. Palpable dorsalis pedis pulse, left. Const Vital Signs: 12/09/24 19:55 12/09/24 20:09 Temperature 98.1 F Temperature Source Oral Pulse Rate 109 H Respiratory Rate 18 Respiratory Effort Normal Non-Labored Respiratory Depth Normal Respiratory Pattern Normal Blood Pressure 134/95 H Blood Pressure Mean 108 Pulse Ox 98 Oxygen Delivery Method Room Air MDM MDM MDM Narrative Medical decision making narrative: Differential diagnosis includes but not limited to fracture of lumbar spine including compression fracture versus contusion versus vertebral process fracture. She may have more of a knee contusion or internal derangement of the left knee versus muscle strain versus spasm. Patient has had bilateral tubal ligation and states she is not . She was administered Toradol and Norflex initially intramuscularly for analgesia and x-rays were obtained of the lumbar spine and of the left knee. My individual interpretation of the x-rays of the lumbar spine, there is no evidence of acute fracture. I reviewed the radiology report which confirms my independent interpretation. Additionally on my individual interpretation of theleft knee, no fracture or effusion. Once again I reviewed the radiology report which confirms my independent interpretation. Upon repeat examination, she states she feels more relaxed but is still having some pain in the posterior aspect of her left knee. She is able to raise her leg directly off the bed so I do not suspect a quadriceps tendon rupture. She will be placed in an Kyle wrap. She states that she has her mother's walker thatshe can use and does not want to use crutches. I feel she can be discharged to follow-up with her primary care provider. She was written prescriptions for Flexeril and naproxen. Return instructions to the emergency department were reviewed. Disposition is discharged home in stable condition. History & Record Review Discussion w/independent historian: Patient Additional record(s) reviewed:: Prior ED visit (Noncontributory to current chiefcomplaint.) Radiography Diagnostic Testing: Clinical Impression(s) from Imaging Studies Knee X-Ray 12/09/24 20:30 IMPRESSION: Normal exam Reading Location: [place] [address] Lumbar Spine X-Ray 12/09/24 20:30 IMPRESSION: No acute findings Reading Location: [place] [address] Discharge Plan Triage Chief Complaint: Fall ED Provider: Jatin Tolliver Dx/Rx/DC Orders Clinical Impression: Fall down stairs, Lumbar contusion, Posterior left knee pain Instructions: ED Back Contusion, ED Contusion, Lower Extremity, ED Fall Prevention Prescriptions: New naproxen [Naprosyn] 500 mg tablet 500 mg PO BID PRN (Reason: pain) Qty: 20 0RF cyclobenzaprine 10 mg tablet 10 mg PO TID PRN (Reason: Muscle Spasm) Qty: 20 0RF No Action ibuprofen 600 mg tablet 600 mg PO Q6H PRN PRN (Reason: Pain Score 1-10/10) Qty: 20 0RF sulfamethoxazole-trimethoprim 800-160 mg tablet 1 tab PO BID Qty: 10 0RF cephalexin 500 mg capsule 500 mg PO Q6 Qty: 20 0RF ibuprofen 600 mg tablet 600 mg PO Q6H PRN PRN (Reason: pain) Qty: 20 0RF Primary Care Provider: Gideon Alford NP Referrals: Gideon Alford 3D MODELER, 3D MODELER-C [Primary Care Provider] - 3-5 Days if not improving Activity Restrictions/Additional Instructions: Continue ice and elevation of the left lower extremity when possible. Follow-upwith your primary care provider. Medication as directed. Print Language: Mongolian Disposition Disposition: Home, Self Care What to do if you have Problems For any increased pain, shortness of breath, bleeding, nausea or vomiting, chestpain, or any unexpected problems, contact your Primary Care Provider. Call [facility] ([phone]) or report to the closest Emergency Room. Call 911 if necessary. 12/09/242158 <Electronically signed by Jatin Tolliver MD> Cosigner Signature (if applicable): CC: 3D MODELER-C Gideon Alford ~ Signed [facility] Work Phone: [phone] 920-451711-29-2023 NotePatient Outreach (INTMWS) MONIQUE ACEVEDO ([id number]) 1985 F Date Time Provider Department 04/13/23 GEOFFREY WHITE INTMWS During your visit today, we recorded the [...] Syringe-Needle U-100 1 mL 31 gauge x 5 Uses 1 per day with insulin injections. - insulin lispro (HUMALOG KWIKPEN INSULIN) 100 unit/mL Inject 8 units with meals PLUS SS#1 (1 unit of insulin for every 50 over 150 blood sugar) - insulin glargine (BASAGLAR KWIKPEN U-100 INSULIN) 100 unit/mL (3 mL) Inject 20 units once daily - Insulin Vardaman, Disposable, (PEN NEEDLE) 32 gauge x Inject [...] disorder [F17.200] 07/21/2005 OPEN WOUND TRUNK NEC-COMPL [[id number]] 07/23/2005 09/02/2005 Migraine without aura, without mention [...] Encounter Status:Closed by LUZ ELENA GUILLAUME on 04/13/23[facility] 04-13-2023 NoteHNO ID: [id number] Author: Luz Elena Guillaume Service: ? Author Type: ? Type: Progress Notes Filed: 04/13/2023 11:26 AM Note Text: Phoned patient and left message for patient to call office back and schedule an appointment for follow up DM and hemA1c. Luz Elena Guillaume [facility]11-09-2023 Note Discharge Instructions Thank you for allowing [facility] to assist you with your healthcare needs. The following is importantdischarge information regarding your hospital visit. Your Care Team [facility] Your Diagnosis Bipolar 1 disorder Diabetes Flank pain-right Pyelonephritis What to do next Instructions From Your Doctor You are admitted for pyelonephritis. You are being discharged with a prescription for Cipro 500 mg twice daily for 7 days. Please take all of these doses. You are being given an order for pelvic floor therapy. You can call [facility] therapy department to schedule this. Your [...] with GIDEON ALFORD APRN-YUSUF When Where: [address] [place] [address]- [phone] The Following Activity and Diet Have Been [...] 12 hours Duration: 7 Days Pickup at [facility] #[id number] start tonight Changed insulin glargine (Lantus Solostar Pen 100 units/ mL 3 mL Pen) 25 unit(s) Subcutaneous Daily at bedtime Duration: 30 Days Pickup at [facility] #[id number] 03/24/23 10:19am Changed insulin lispro (HumaLOG) (HumaLOG Jose KwikPen 100 units/ mL injectable PEN) 8 unit(s) Subcutaneous Three (3) times a day Duration: 30 Days Pickup at [id number] 03/24/23 12:18pm Unchanged atorvastatin (atorvastatin 20 mg [...] 1 not given in hospital Pharmacy Information [id number]: [address] [place], [place] [id number] [phone] What How Much When Comments Stop Taking [...] may report side effects to FDA at 5-093-OTW-0968. What other drugs will affect insulin glargine? Many drugs can affect your blood sugar and may also affect insulin glargine. This includes prescription and iylk-hig-oagiqvq medicines, vitamins, and herbal products. Tell your [...] to ensure that the information provided by [employer]. ('[employer]') is accurate, up-to-date, and complete, but no guarantee is made to that effect. Drug information contained herein may be time sensitive. [employer] information has been compiled for use by healthcare practitioners and consumers in the [place] and therefore [employer] does not warrant that uses outside of the [place] are appropriate, unless specifically indicated otherwise. [employer]'s drug information does not endorse drugs, diagnose patients or recommend therapy. [employer] drug information isan informational resource designed to assist licensed healthcare practitioners in caring for their p [facility] and/or to serve consumers viewing this service as a supplement to, and not a substitute for, the expertise, skill, knowledge and judgment of healthcare practitioners. The absence of a warningfor a given drug or drug combination in no way should be construed to indicate that the drug or drug combination is safe, effective or appropriate for any given patient. [facility] does not assume any responsibility for any aspect of healthcare administered with the aid of information [facility] provides. The information contained herein is not intended to cover all possible uses, directions, precautions, warnings, drug interactions, allergic reactions, or adverse effects. If you have questions about the drugs you are taking, check with your doctor, nurse or pharmacist. Copyright 0632-7171 [facility]. Version: 17.. Revision Date: 12/24/2022. insulin lispro [...] needle attached) at room temperature and use [id number] days. Use a needle and syringe only [...] may report side effects to FDA at 6-786-HFX-5376. What other drugs will affect insulin lispro? [...] or stop using. This includes prescription and rfym-fkz-mhbknob medicines, vitamins, and herbal products. Where can I get more information? Your pharmacist can provide more information about insulin lispro. Remember, keep this and all other medicines out of the reach of children, never share your medicines with others, and use this medication only for the indication prescribed. Every effort has been made to ensure that the information provided by [employer]. ('[employer]') is accurate, up-to-date, and complete, but no guarantee is made to that effect. Drug information contained herein may be time sensitive. [employer] information has been compiled for use by healthcare practitioners and consumers in the [place] and therefore [employer] does not warrant that uses outside of the [place] are appropriate, unless specifically indicated otherwise. [employer] drug information does not endorse drugs, diagnose patients or recommend therapy. [employer] drug information isan informational resource designed to [...] effective or appropriate for any given patient. [facility] does not assume any responsibility for any aspect of healthcare administered with the aid of information [facility] provides. The information contained herein is not intended to cover all possible uses, directions, precautions, warnings, drug interactions, allergic reactions, or adverse effects. If you have questions about the drugs you are taking, check with your doctor, nurse or pharmacist. Copyright 6909-4263 [facility]comLatinda. Version: 9.01. Revision Date: 11/21/2019. ciprofloxacin (oral) (SIP nirmal FLOX a sin) Cipro, Proquin XR What is the most important information I should know about ciprofloxacin? Ciprofloxacin can cause serious side effects, including tendon problems, nerve damage, serious moodor behavior changes, or low blood sugar. Stop using this medicine and call your doctor at once if you have: headache, hunger, irritability, numbness, tingling, burning pain, confusion, agitation, paranoia, problems with memory or concentration, thoughts of suicide, or sudden pain or movement problems in any of your joints. In rare cases, ciprofloxacin may cause damage to your aorta, which could lead to dangerous bleedingor . Get emergency medical help if you have severe and constant pain in your chest, stomach, or back. What is ciprofloxacin? Ciprofloxacin is a fluoroquinolone (veva-e-YAEJ-o-lone) antibiotic, it is used to treat different types of bacterial infections. It is also used to treat people who have been exposed to anthrax or certain types of plague. Ciprofloxacin extended-release is only approved for use in adults. Fluoroquinolone antibiotics can cause serious or disabling side effects that may not be reversible.Ciprofloxacin should be used only for infections that [...] you measure a dose. Use the dosing syringeprovided, or use a medicine dose-measuring device (not [...] infection that is resistant to medication. Ciprofloxacin willnot treat a viral infection such as the [...] reaction (fever, sore throat, burning in your eyes,skin pain, red or purple skin rash that [...] rupture--sudden pain, swelling, bruising, tenderness, stiffness, movement problems,or a snapping or popping sound in any of your joints (rest the joint until you receive medical careor instructions). In rare cases, ciprofloxacin may cause [...] may report side effects to FDA at 6-979-HLH-8912. What other drugs will affect ciprofloxacin? Some [...] drugs may affect ciprofloxacin, including prescription and xvzp-fjd-fyzpfft medicines, vitamins, and herbal products. Not all [...] to ensure that the information provided by [employer]. ('[employer]') is accurate, up-to-date, and complete, but no guarantee is made to that effect. Drug information contained herein may be time sensitive. [employer] information has been compiled for use by healthcare practitioners and consumers in the [place] and therefore [employer] does not warrant that uses outside of the [place] are appropriate, unless specifically indicated otherwise. [employer] drug information does not endorse drugs, diagnose patients or recommend therapy. [employer] drug information isan informational resource designed to [...] effective or appropriate for any given patient. [employer] does not assume any responsibility for any aspect of healthcare administered with the aid of information [employer] provides. The information contained herein is not intended to cover all possible uses, directions, precautions, warnings, drug interactions, allergic reactions, or adverse effects. If you have questions about the drugs you are taking, check with your doctor, nurse or pharmacist. Copyright 2949-8599 [employer]. Version: 23.01. Revision Date: 11/28/2019. insulin lispro [...] needle attached) at room temperature and use fpikmp08 days. Use a needle and syringe only [...] injected the medicine.< (more content not included)... [facility]11-08-2023 Note. MICRO - Microbiology PROCEDURE: Urine Culture [*1] [...] *1: This test was performed at: [facility], [address] [place] [address], [address] , [facility] ([place])03-23-2023 Note Date of Service 03/23/2023 Chief Complaint [...] are requesting her lab results from [facility] Diazcyn[facility] to see what her urine culture was growing there. She may be growing a more resistant bacteria that will require a different antibiotic. 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 She has never seen a urologist but may need to if she continues to have urinary tract infections from urinary retention. Patient a dvised that her white blood cell count was [...] HR: 76(Apical) RR: 20 BP: 129/76 SpO2: 93%HT: 170.2 cm WT: 109.9 kg BMI: 37.59 [...] from ED visit at [facility] obtained but no urine culture done. Patient [...] tests, reviewing lab results, vital sign trends, medicalhistory, reviewing medications and ordering home medications, examining patient, collaborating withphysician, and documenting in chart. Digitally Signed by ROSY PHAN on 03/23/2023 02:38 PM [facility]11-07-2023 Note Date of Service 03/22/2023 Chief Complaint pt states she has been having UTI symptoms for almost 2 weeks, blood in urine/flank pain.Seen at [facility] last Tuesday and with UTI and given IV antibiotics and d/c home with 3 days of oral antibiotics. Pt states she is not any better. History of Present Illness Patient is a 37-year-old female, who follows with Dr. Axel Alford with a past medical history significant for type 2 diabetes and Bipolar disorder, presents to [facility] emergency department with the chief complaint of UTI symptoms for about 2 weeks. Patient reports that she has haddysuria for about 2 weeks now. She was seen at [facility] emergency department one week ago and diagnosed with a urinary tract infection. Patient was administered IV ceftriaxone and then discharged on Keflex. She states she has been taking her antibiotic as prescribed. She states that her dysuria has not improved and she developed right flank pain a few days ago. Patient states that she calledinto the ED to see if they would [...] abdomen/pelvis revealed increased enhancement of the wall ofthe right renal pelvis and proximal ureter raises concern for potential pyelonephritis. White bloodcell count 11.0. CBC otherwise unremarkable. BMP significant [...] hours. We will request records from [facility] specifically results of urine cultu re. We will continue PO and IV pain [...] from ED visit at [facility]. Repeat CBC and BMP in the am. [...] tests, reviewing lab results, vital sign trends, medicalhistory, reviewing medications and ordering home medications, examining patient, collaborating withphysician, and documenting in chart. Problem List/Past Medical [...] by ROSY PHAN on 03/22/2023 07:29 PM [facility]11-07-2023 Hospital Discharge instructions Patient Education 03/22/2023 13:17:46 [...] serious. It can cause severe illness, scarring ofthe kidneys, or kidney failure if not treated [...] better. It is important to finish them tomake sure the infection is gone. Unless another medicine was prescribed, you can use rsau-rqp-qvwqkjg medicines for pain, fever, or discomfort. If [...] when crying, sunken eyes, or dry mouth 1680-7474 [employer]. [address] [place] [address]. All rights reserved. This information is not intended as a substitute for professional medical care. Always follow yourhealthcare professional's instructions. Follow Up Care 03/22/2023 11:08:43 With:GIDEON ALFORD APRN-[facility] Address: [address] [place] [address] [place] [phone] When: Unknown [facility] 11-07-2023 Evaluation + Plan noteExtracted from: Title:History and Physical Author:ROSY PHAN APRN-[facility] Date:03/22/23 1. Pyelonephritis Acute, ongoing for 2 weeks accompanied by dysuria and right flank pain, had been on Keflex for the past week without any improvement in symptoms. Patient administered Ceftriaxone 1 gram IV in the ED - will continue on admission. Urine and blood cultures are pending. Continue IV and PO pain medication. Request records from ED visit at [facility]. Repeat CBC and BMP in the am. [...] collaborating with physician, and documenting in chart. [facility] 11-07-2023 Note ORIGINAL EXAMINATION: CT OF [...] Sign Date: 03/22/2023 1:06:24 PM Ordering Provider: [facility]11-06-2023 Note . MICRO - Microbiology [...] Locations *1: This test was performed at: [address]03-21-2023 Note. MICRO - Microbiology PROCEDURE: Blood Culture [...] Locations *1: This test was performed at: [address], [address] [place], [place] [address]3-02-2023 Hospital Discharge instructions Patient Education 03/01/2023 23:54:06 [...] keep having episodes of high blood sugar. [facility] [address] [place] [address]. All rights reserved. This information is not [...] for diarrhea, vomiting, or a high fever. [facility]. [address] [place] [address]. All rights reserved. This information is not intended as a substitute for professional medical care. Always follow yourhealthcare professional's instructions. Follow Up Care 03/01/2023 19:16:32 With:AXEL ALFORD DO Address: [address] [address] [place] [phone] When:2-4 days [facility] 10-18-2023 Note Discharge Instructions Thank you for allowing [facility] to assist you with your healthcare needs. [...] When Within 2-4 days Where: [address] [address] [place], [place] [id number] [phone] Allergies NKA Medications Please ask your primary [...] Carry a medical ID card or a ON[address] drive. Or wear a medical alert bracelet [...] keep having episodes of high blood sugar. [facility] [address] [place] [address]. All rights reserved. This information is not [...] for diarrhea, vomiting, or a high fever. [facility] [address] [place] [address]. All rights reserved. This information is not intended as a substitute for professional medical care. Always follow yourhealthcare professional's instructions. Additional Information VACCINATE! IT SAVES LIVES! Members of the community who have not yet received the COVID-19 vaccine and would like to receive it can visit one of [facility] vaccine clinics. There are many vaccine clinic locations within the State. For locations and available times, please visit www.[email or web address].[place].gov/. It is important to note that some COVID mobile vaccine clinics are held outdoors and may be canceled in rainy or stormy conditions. To learn more about pediatric vaccinations (ages 5-11), we invite you to visit the [facility] webpage. [email or web address]://[email or web address]/[email or web address]-Mgsyzijvbr-Pcywk-[email or web address] stions.htmlTo learn more about the COVID-19 vaccine, we invite you to visit the CDC website for a list of frequently asked questions. https://www.cdc.gov/coronavirus/2019-ncov/vaccines/faq.html [facility] Patient Portal Access Instructions: Stay connected with your healthcare team and access your personal medical information anytime with the [facility] Patient Portal. If you would like a full copy of your medical records please contact the [facility] Medical Records Department Tuesday through Tuesday between 8a.m. and 4:30p.m. Please follow the directions below to access the portal: 1.Access the email account you provided upon registration to the hospital.2.Look for an invitation email from [facility].3.Open the email and access the invitation link: Accept Invitation to [facility]4.Fill in the required ruelas to create your account. Sign into www.[employer] with your username and password that [...] you will allow to register on the [facility] Patient Portal for access to your information. You can also access the [facility] Patient Portal on the YOUnite fatuma. Simply click on Health Records under [employer] and then click on the Zedmo logo. HOW TO SAFELY DISPOSE OF PRESCRIPTION [...] Call your local pharmacy or go to [email or web address]/[email or web address] to find one close to you.3.Make use of household items: Use cat litter or old coffee grounds to dispose medications if other options arenot available. Mix your drugs with these household products, seal them in an airtight container andthrow it into the garbage. Call [facility]: [phone] to be sure your drugs can be [...] aware that I should contact my doctor. 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 I reviewed her labs. Her antibodies are negative she is confirmed TYPE 2 diabetes. This is treated with lifestyle modifications - weight loss, healthy diet, medications. Her cholesterol panel is also elevated. STRONGLY recommend she sees the ENDO [facility] for meal planning. Her A1C is elevated, [...] phone pharmacy and notify patient. Lupe Gutierrez, CRIMINAL RECORDS TECHNICIAN.FINISH REMOVER Component Latest Ref Rng & Units 09/08/2022 [...] - 3.85 ng/mL 2.90 documented in this encounterOur [facility]-2023 NoteHNO ID: [id number] Author: Lupe Gutierrez APRN.YUSUF Service: ? Author Type: Nurse Practitioner Type: [...] 2016 Previously patient of BC RUCKER MD, [facility] for gestational DM, last visit 09/12/2014 Initially [...] OF SYSTEMS - POSITIVES (more content not included)...[facility]04-26-2023 Instructions* Patient Instructions* Lupe Gutierrez APRN.CNP - [...] glucose does not improve. documented in this encounterOur [facility]04-26-2023 History of Present illness Narrative* Lupe [...] 2016 Previously patient of BC RUCKER MD, [facility] for gestational DM, last visit 09/12/2014 Initially [...] egg salad w fruit/veggie OR burrito from [employer] hdez - drinks diet pop, water Dinner [...] A1C Lupe Gutierrez CNP documented in this encounterOur [facility]04-12-2023 Hospital Discharge instructions Patient Education 08/25/2022 [...] if you keep having episodes of hyperglycemia. 8440-4397 [facility]. [address] [place] [address]. All rights reserved. This information is not intended as a substitute for professional medical care. Always follow yourhealthcare professional's instructions. Follow Up Care 08/25/2022 13:43:48 With:AXEL ALFORD DO Address: [address] [address] [place] [phone] When:2-4 days [facility] 04-12-2023 Note Discharge Instructions Thank you for allowing [facility] to assist you with your healthcare needs. The following is importantdischarge information regarding your hospital visit. Diagnosis from Today's Visit Hyperglycemia Hyperglycemia What to Do Next Instructions from Your Care Team No qualifying data available. Post Acute Orders No qualifying data available. You Need to Schedule the Following Appointments Follow Up with AXEL ALFORD DO When Within 2-4 days Where: [address] [address] [place] [address]- [phone] Allergies NKA Medications Please ask your primary doctor or pharmacist before taking any other medication not listed, including over the counter drugs, herbal medications, vitamins and or supplements as they may interact withur home medications. What How Much When Why [...] may report side effects to FDA at 2-813-EYT-9965. What other drugs will affect insulin glargine? Many drugs can affect your blood sugar and may also affect insulin glargine. This includes prescription and gxzr-ido-frmcded medicines, vitamins, and herbal products. Tell your [...] to ensure that the information provided by [employer]. ('[employer]') is accurate, up-to-date, and complete, but no guarantee is made to that effect. Drug information contained herein may be time sensitive. [employer] information has been compiled for use by healthcare practitioners and consumers in the [place] and therefore [employer] does not warrant that uses outside of the [place] are appropriate, unless specifically indicated otherwise. [employer] drug information does not endorse drugs, diagnose patients or recommend therapy. [employer] drug information isan informational resource designed to [...] effective or appropriate for any given patient. [employer] does not assume any responsibility for any aspect of healthcare administered with the aid of information [employer] provides. The information contained herein is not intended to cover all possible uses, directions, precautions, warnings, drug interactions, allergic reactions, or adverse effects. If you have questions about the drugs you are taking, check with your doctor, nurse or pharmacist. Copyright 1895-2830 [employer]. Version: 15.02. Revision Date: 07/03/2021. insulin lispro [...] needle attached) at room temperature and use knzazt08 days. Use a needle and syringe only [...] may report side effects to FDA at 8-689-RED-0630. What other drugs will affect insulin lispro? [...] or stop using. This includes prescription and dcjn-wph-zlsywta medicines, vitamins, and herbal products. Where can I get more information? Your pharmacist can provide more information about insulin lispro. Remember, keep this and all other medicines out of the reach of children, never share your medicines with others, and use this medication only for the indication prescribed. Every effort has been made to ensure that the information provided by [employer]. ('[employer]') is accurate, up-to-date, and complete, but no guarantee is made to that effect. Drug information contained herein may be time sensitive. [employer] information has been compiled for use by healthcare practitioners and consumers in the [place] and therefore [employer] does not warrant that uses outside of the [place] are appropriate, unless specifically indicated otherwise. [employer] drug information does not endorse drugs, diagnose patients or recommend therapy. [employer] drug information isan informational resource designed to [...] effective or appropriate for any given patient. [employer] does not assume any responsibility for any aspect of healthcare administered with the aid of information [employer] provides. The information contained herein is not intended to cover all possible uses, directions, precautions, warnings, drug interactions, allergic reactions, or adverse effects. If you have questions about the drugs you are taking, check with your doctor, nurse or pharmacist. Copyright 7167-0023 [employer]. Version: 9.01. Revision Date: 11/21/2019. Education Materials [...] if you keep having episodes of hyperglycemia. 1735-8240 [facility] [place] [address], [place] [address]. All rights reserved. This information is not intended as a substitute for professional medical care. Always follow yourhealthcare professional's instructions. Additional Information VACCINATE! IT SAVES LIVES! Members of the community who have not yet received the COVID-19 vaccine and would like to receive it can visit one of [facility] vaccine clinics. There are many vaccine clinic locations within the [facility]. For locations and available times, please visit www.gettheshot.[email or web address].[place].gov/. It is important to note that some COVID mobile vaccine clinics are held outdoors and may be canceled in rainy or stormy conditions. To learn more about pediatric vaccinations (ages 5-11), we invite you to visit the [facility] webpage. https://www.Coffee Meets Bagels.[email or web address]/pages/[email or web address]-Rgznw-Twbjntrqpiy-Lhekndzrwd-[email or web address] stions.htmlTo learn more about the COVID-19 vaccine, we invite you to visit the CDC website for a list of frequently asked questions. https://www.cdc.gov/coronavirus/2019-ncov/vaccines/faq.html [facility] Patient Portal Access Instructions: Stay connected with your healthcare team and access your personal medical information anytime with the [facility] Patient Portal. If you would like a full copy of your medical records please contact the [facility] Medical Records Department Tuesday through Tuesday between 8a.m. and 4:30p.m. Please follow the directions below to access the portal: 1.Access the email account you provided upon registration to the hospital.2.Look for an invitation email from [facility].3.Open the email and access the invitation link: Accept Invitation to [facility]4.Fill in the required ruelas to create your account. Sign into www.[employer]anning [employer] with your username and password that [...] you will allow to register on the [facility] Patient Portal for access to your information. You can also access the [facility] Patient Portal on the Pixonic. Simply click on Health Records under [employer] and then click on the [facility] logo. HOW TO SAFELY DISPOSE OF PRESCRIPTION [...] Call your local pharmacy or go to [email or web address]/[email or web address] to find one close to you.3.Make use of household items: Use cat litter or old coffee grounds to dispose medications if other options arenot available. Mix your drugs with these household products, seal them in an airtight container andthrow it into the garbage. Call [facility]: [phone] to be sure your drugs can be [...] aware that I should contact my doctor. 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 Author Type: Nurse Practitioner Type: Progress Notes Filed: 05/12/2022 12:59 PM Note Text: Messenger Office offered: Patient declines. Monique Acevedo is a [...] external genitalia normal, normal Bartholin's glands, urethra, [place]'s glands, no vulvar lesions, no cervical lesions, [...] management Medical Decision Making Level: 4 - [facility] Instructions* Patient Instructions* Savannah Valverde APRN.CNP - [...] night x 2 weeks. documented in this encounterOur [facility]12-28-2022 History of Present illness Narrative* Savannah Valverde APRN.CNP - 05/12/2022 11:35 AM EST Messenger Office offered: Patient declines. Monique Acevedo is a [...] external genitalia normal, normal Bartholin's glands, urethra, [place]'s glands, no vulvar lesions, no cervical lesions, [...] Level: 4 - Moderate documented in this encounterOur [facility] Of [facility]12-21-2022 Hospital Discharge instructions Patient Education 05/05/2022 [...] the first few days. You may use mqkh-stl-hejvqzt medicine, such as acetaminophen or ibuprofen, to [...] F (38 C) or as advised Seizure [id number] [facility] [address]. [address] [place] [address]. All rights reserved. This information is not [...] face You have trouble talking or seeing [id number] [facility] [address]. [address] [place] [address]. All rights reserved. This information is not intended as a substitute for professional medical care. Always follow yourhealthcare professional's instructions. Follow Up Care 05/05/2022 20:42:51 With:GEOFFREY WHITE MD Address: [address] [place] [address]- When:2-4 days [facility] 12-21-2022 Note Discharge Instructions Thank you for allowing [facility] to assist you with your healthcare needs. The following is importantdischarge information regarding your hospital visit. Diagnosis from Today's Visit Cough Headache What to Do Next Instructions from Your Care Team No qualifying data available. Post Acute Orders No qualifying data available. You Need to Schedule the Following Appointments Follow Up with GEOFFREY WHITE MD When Within 2-4 days Where: [address] [place] [address]- Allergies NKA Medications Please ask [...] the first few days. You may use qsie-trx-ilwcyue medicine, such as acetaminophen or ibuprofen, to [...] F (38 C) or as advised Seizure [id number] [facility] [address] [place] [address], [place] [address]. All rights reserved. This information is not [...] face You have trouble talking or seeing [phone] [facility] [address] [place] [address], [place] [address]. All rights reserved. This information is not intended as a substitute for professional medical care. Always follow yourhealthcare professional's instructions. Additional Information VACCINATE! IT SAVES LIVES! Members of the community who have not yet received the COVID-19 vaccine and would like to receive it can visit one of [facility] vaccine clinics. There are many vaccine clinic locations within the [facility]. For locations and available times, please visit [email or web address]. It is important to note that some COVID mobile vaccine clinics are held outdoors and may be canceled in rainy orstormy conditions. To learn more about pediatric vaccinations (ages 5-11), we invite you to visit the [facility] webpage. [email or web address] [email or web address].htmlTo learn more about the COVID-19 vaccine, we invite you to visit the [facility] website for a list of frequently asked questions. [email or web address] _[email or web address].pdf [facility] Patient Portal Access Instructions: Stay connected with your healthcare team and access your personal medical information anytime with the [facility] Patient Portal. If you would like a full copy of your medical records please contact the [facility] Medical Records Department Tuesday through Tuesday between 8a.m. and 4:30p.m. Please follow the directions below to access the portal: 1.Access the email account you provided upon registration to the hospital.2.Look for an invitation email from [facility].3.Open the email and access the invitation link: Accept Invitation to [facility]4.Fill in the required ruelas to create your account. Sign into [email or web address] with your username and password that you [...] you will allow to register on the [facility] Patient Portal for access to your information. You can also access the [facility] Patient Portal on the Pixonic. Simply click on Health Records under [employer] and then click on the [facility] logo. HOW TO SAFELY DISPOSE OF PRESCRIPTION [...] Call your local pharmacy or go to http://SincroPool.Iceberg/[email or web address] to find one close to you.3.Make use of household items: Use cat litter or old coffee grounds to dispose medications if other options arenot available. Mix your drugs with these household products, seal them in an airtight container andthrow it into the garbage. Call [facility]: [phone] to be sure your drugs can be [...] am aware that I should contactmy doctor. 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 These can be rented or [facility] and surgical or orthopedic supply stores. [...] alternate ice and heat. You may use nzqn-dxn-gvhavax pain medicine to control pain, unless another [...] to put weight on the injured side [phone] [facility] [address] [place] [address], [place] [address]. All rights reserved. This information is not intended as a substitute for professional medical care. Always follow yourhealthcare professional's instructions. Follow Up Care 04/24/2022 11:25:28 With:DO TIFFANI BAILEY DO Address: [address] [place] [address] [address] [place] [address] When:2-4 days With:Go to emergency room if symptoms worsen Address:Unknown When:2-4 days [facility] 12-10-2022 Note Discharge Instructions Thank you for allowing [facility] to assist you with your healthcare needs. [...] BAILEY DO When Within 2-4 days Where: [address] [place] [address] [address] [place] [address] Follow Up with Go to [...] may report side effects to FDA at 5-169-JWI-8409. What other drugs will affect prednisone? Sometimes [...] may affect prednisone. This includes prescription and rchh-kib-wjcznft medicines, vitamins, and herbal products. Not all [...] to ensure that the information provided by [employer]. ('[employer]') is accurate, up-to-date, and complete, but no guarantee is made to that effect. Drug information contained herein may be time sensitive. [employer] information has been compiled for use by healthcare practitioners and consumers in the [place] and therefore [employer] does not warrant that uses outside of the [place] are appropriate, unless specifically indicated otherwise. [employer] drug information does not endorse drugs, diagnose patients or recommend therapy. [employer] drug information isan informational resource designed to [...] effective or appropriate for any given patient. [employer] does not assume any responsibility for any aspect of healthcare administered with the aid of information [employer] provides. The information contained herein is not intended to cover all possible uses, directions, precautions, warnings, drug interactions, allergic reactions, or adverse effects. If you have questions about the drugs you are taking, check with your doctor, nurse or pharmacist. Copyright 2549-6798 [employer]. Version: 10.. Revision Date: 08/10/2018. Education Materials [...] prescribed. These can be rented or purchased [facility] and surgical or orthopedic supply stores. [...] alternate ice and heat. You may use nhgb-hor-xycowax pain medicine to control pain, unless another [...] to put weight on the injured side [phone] [facility]. [address] [place] [address]. All rights reserved. This information is not intended as a substitute for professional medical care. Always follow yourhealthcare professional's instructions. Additional Information VACCINATE! IT SAVES LIVES! Members of the community who have not yet received the COVID-19 vaccine and would like to receive it can visit one of [facility] vaccine clinics. There are many vaccine clinic locations within the [facility]. For locations and available times, please visit [email or web address]. It is important to note that some COVID mobile vaccine clinics are held outdoors and may be canceled in rainy orstormy conditions. To learn more about pediatric vaccinations (ages 5-11), we invite you to visit the [facility] webpage. [email or web address]://[email or web address]/pages/[email or web address]-Jcflv-Xzxreolohjv-Jvyenljwtc-Tsejt-Wlk stions.htmlTo learn more about the COVID-19 vaccine, we invite you to visit the [facility] website for a list of frequently asked questions. [email or web address]/pjnsf-[email or web address]-[email or web address] _Asked-Questions.pdf [facility] Patient Portal Access Instructions: Stay connected with your healthcare team and access your personal medical information anytime with the [facility] Patient Portal. If you would like a full copy of your medical records please contact the [facility] Medical Records Department Tuesday through Tuesday between 8a.m. and 4:30p.m. Please follow the directions below to access the portal: 1.Access the email account you provided upon [facility].2.Look for an invitation email from [facility].3.Open the email and access the invitation link: Accept Invitation to [facility]4.Fill in the required ruelas to create your account. Sign into [email or web address] with your username and password that you [...] you will allow to register on the [facility] Patient Portal for access to your information. You can also access the [facility] Patient Portal on the YOUnite fatuma. Simply click on Health Records under [employer] and then click on the [facility] logo. HOW TO SAFELY DISPOSE OF PRESCRIPTION [...] Call your local pharmacy or go to http://bit.ly/3R7Le7j to find one close to you.3.Make use of household items: Use cat litter or old coffee grounds to dispose medications if other options arenot available. Mix your drugs with these household products, seal them in an airtight container andthrow it into the garbage. Call [facility]: [phone] to be sure your drugs can be [...] am aware that I should contactmy doctor. 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 Signature: Date/Time: Relationship to Patient: Witness Name/Signature: Date/Time: [facility]12-10-2022 Note ORIGINAL EXAMINATION: TWO XRAY VIEWS [...] 04/24/2022 12:37:27 PM Ordering Provider: ALESSIA KAUR [facility]12-10-2022 Note ORIGINAL EXAMINATION: 3 XRAY VIEWS [...] Sign Date: 04/24/2022 12:34:59 PM Ordering Provider: [facility]12-10-2022 Note ORIGINAL EXAMINATION: TWO XRAY VIEWS [...] Sign Date: 04/24/2022 12:37:27 PM Ordering Provider: [facility]12-10-2022 Note ORIGINAL EXAMINATION: 3 XRAY VIEWS OF [...] Sign Date: 04/24/2022 12:34:59 PM Ordering Provider: [facility]11-04-2022 History of Present illness Narrative* Sue Mg, PhD - 03/19/2022 2:16 PM EDT [facility] Bariatric Behavioral Services Progress Note March 19, 2022 Patient was a no-show for the Psychology Orientation/Welcome group. If she reschedules, it should be within another Welcome group. Sue Mg, Ph.D. Psychologist documented in this encounterOur [facility]06-28-[facility]22 Instructions* Patient Instructions* Talia Perez APRN.CNP - 11/10/2021 10:55 AM EDT [email or web address] documented in this encounterOur Lady Of Mercy [facility]06-28-2022 History of Present illness Narrative* Talia Perez APRN.CNP - 11/10/2021 10:41 AM EDT This Team Access Model visit is a virtual encounter. It required patient- provider interaction for the medical decision making as documented below. Patient agrees to the visit: Yes Patient Location: [place] CC: Patient presents with: Harvey Acevedo is [...] more information about bariatric surgery, link for [facility] bariatric surgery department copied into patient's AVS. Also encouraged patient to call her insurance to discuss their requirements and coverage information - [facility] - Patient advised if she does not wish to proceed with bariatric surgery to consider referral to cruise consultant and/or weight loss medications. 2. Type 2 [...] care. Talia Perez APRN.CNP documented in this encounterOur Lady Of Mercy Hospital06-13-2022 History of Present illness Narrative* Deedee Cotton PA-C - 10/26/2021 2:04 PM EDT Deedee Cotton PA-C Department of Orthopaedics Orthopaedics [address] [facility] [address] Dept: [phone] Dept October 26, 2021 CHIEF COMPLAINT: New [...] is right-hand dominant and works as an [employer]. She denies any previous left elbow injuries. [...] Imaging: Outside images, [facility] [place] X-rays left elbow 3 view 10/23/21 No [...] (Patient not taking: Reported on 09/10/2021 ) Umpmvrzlcsxrmge-Thrkyqbdq-OA (BROMFED DM) 2-30-10 mg/5 mL syrup Take [...] anxiety) This note was partially generated using [email or web address] voice recognition system, and there may be [...] Patient states last Tuesday she was at [employer] and started the having discomfort in her left elbow the following day. Continued to work last week and on Tuesday she had increase pain and seen at [facility] here in [place]. States she was unable to move or flex her elbow. No specific injury. She is right hand dominant. 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 She was splinted on F riday but took her splint off yesterday due to her splint felt tight and her hand was swollen. Mom and Daughter with patient today. Patient hand carried copy of her x-rays. documented in this encounterOur Lady Of Mercy Hospital04-28-2022 Instructions* Patient Instructions* Savannah Valverde APRN.FINISH REMOVER - 09/10/2021 10:18 AM EDT Minimizing irritation [...] avoid scratching at night. documented in this encounterOur Lady Of Mercy Hospital04-28-2022 History of Present illness Narrative* Savannah [...] L6 SAB0 IAB0 Ectopic0 Multiple1 Live Births6 Director Of Coding History LMP: 08/25/2021, Having periods Age at Menarche: Age at First : Age at Menopause: Director Of Coding History Comments: Sexual Activity: Yes; Male Contraception: [...] hours as needed for wheezing/shortness of breath. Ctqclromniridxo-Sdenmkoke-PP (BROMFED DM) 2-30-10 mg/5 mL syrup Take [...] external genitalia normal, normal Bartholin's glands, urethra, [place]'s glands, no vulvar lesions, no cervical lesions, [...] needed and at IUD insertion.. Savannah Valverde APRN.FINISH REMOVER Medical Decision Making: Problems: Low: Acute, uncomplicated illness or injury Moderate: 1+ chronic illnesses with change Data: Unique test(s) ordered: 3+ Risk: Moderate: Drug management Medical Decision Making Level: 4 - Moderate documented in this encounterOur Lady Of Mercy Hospital07-07-2015 History of Past illness Narrative* Problem [...] of this encounter (statuses as of 09/10/2021) [facility] of Past illness Narrative* Problem [...] of this encounter (statuses as of 10/26/2021) [facility] of Past illness Narrative* Problem [...] of this encounter (statuses as of 11/10/2021) [facility] of Past illness Narrative* Problem [...] of this encounter (statuses as of 03/19/2022) [facility] of Past illness Narrative* Problem [...] of this encounter (statuses as of 05/18/2022) [facility] of Past illness Narrative* Problem [...] of this encounter (statuses as of 09/09/2022) [facility] History of Past illness Narrative* Problem [...] of this encounter (statuses as of 09/11/2022) [facility] + Plan note No data available for this section [facility] Evaluation note* Diagnosis Onset Date Resolution Status Acute bronchitis, unspecified acute [facility] Work Phone: Evaluation note* Diagnosis Vaginal discharge- Primary Leukorrhea, not specified as infective Vaginal odor Unspecified symptom associated with female genital organs Screen for STD (sexually transmitted disease) Screening examination for venereal disease Menorrhagia with regular cycle Excessive or frequent menstruation Dysmenorrhea documented in this encounter [facility] note* Diagnosis Medial epicondylitis of left elbow- Primary Medial epicondylitis of elbow Family history of rheumatism documented in this encounter [facility] note* Diagnosis Obesity, Class II, BMI 35-39.9- Primary Obesity, unspecified Type 2 diabetes mellitus without complication, without long-term current use of insulin ([facility]) documented in this encounter [facility] note* Diagnosis NO SHOW- Primary documented in this encounter [facility] note* Diagnosis Vaginal discharge- Primary Leukorrhea, not [...] obesity type (HCC) [facility]* Diagnosis Onset Date Resolution Status Hyperglycemia acute Urinary tract infection acut e [facility] Work Phone: Evaluation note* Diagnosis Poorly controlled type 2 diabetes mellitus (HCC)- Primary Type II or unspecified type diabetes mellitus without mention of complication, not stated as uncontrolled documented in this encounter [facility] note* Diagnosis COVID-19 SOB (shortness of breath) Shortness of breath History of pulmonary embolism Personal history of pulmonary embolism documented in this encounter [facility] noteNo assessment information availableWCleveland Clinic Children's [facility] for [facility] Work Phone: Hospital Discharge instructions No data available for this section [facility] Hospital Discharge instructions Additional Instructions Needle decompression in the ED there is no exudative drainage. Take and finish antibiotic as prescribed. Follow-up with your doctor.[facility] Work Phone: Hospital Discharge instructionsAdditional Instructions Continue ice and elevation of the left lower extremity when possible. Follow-up with your primary care provider. Medication as directed.[facility] Work Phone: Reason for referral (narrative)* Outpatient Procedure (Routine) - Pending Review Specialty Diagnoses / Procedures Referred By Phuong martinez Referred To Contact [facility] Diagnoses Menorrhagia with regular cycle Dysmenorrhea Procedures INSERT INTRAUTERINE DEVICE LEVONORGESTREL IU 52MG 5 YR INSERT INTRAUTERINE DEVICE Savannah Valverde APRN.FINISH REMOVER [address] [place] [address] [facility] [address] [place] [address] Referral ID Status Reason Start Date Expiration Date Visits Requested Visits Authorized [id number] Pending Review Auto-Generat ed Referral 09/10/2021 09/10/2022 1 1 [facility] for referral (narrative)No reason for referral information availableWCleveland Clinic Children's Hospital [facility] Rehabilitation Work Phone: SuAdYapperry note* SERJIO Roberto: PERFORM Event Display: Patient Summary Documents Authored Date: [id number] [facility] Summary Purpose Family History No Family [...] October 10, 2020 5 :42am Power of House Mother No October 10, 2020 5:42am Advance Directive Response Recorded Date/ Time Living Will No October 10, 2020 4 :42am Power of House Mother No October 10, 2020 4:42am Advance Directive Response Recorded Date/ Time Do you have a Healthcare Power of House Mother? No November 03, 2024 2:10pm Advance Directive Response Recorded Date/ Time Do you have a Healthcare Power of House Mother? No November 03, 2024 2:10pm Do you have a Healthcare Power of House Mother? No December 09, 2024 8:09pm Chief Complaint and Reason for Visit Chief Complaint CHEST CONGESTION CHEST XRAY Reason for Visit Acute bronchitis, un specified Chief Complaint Urinary tract infect ion Reason for Visit Hyperglycemia Urinary tract infection Chief Complaint Admit Date abscess November 03, 2024 1:04 pm Chief Complaint Admit Date abscess November 03, 2024 1:04 pm fall December 09, 2024 7:54 pm Reason for Referral Specialty Diagnoses / Procedures Referred By Phuong martinez Referred To Contact Diagnoses Poorly controlled type 2 diabetes mellitus (HCC) Procedures ENDOCRINOLOGY DIETITIAN VISIT (MNT) MEDICAL NUTRITION ASSMT&IVNTJ INDIV EACH 15 ME MEDICAL NUTRITION ASSMT&IVNTJ INDIV EACH 15 ME MEDICAL NUTRITION ASSMT&IVNTJ INDIV EACH 15 ME MEDICAL NUTRITION ASSMT&IVNTJ INDIV EACH 15 ME Lupe Gutierrez CRIMINAL RECORDS TECHNICIAN.FINISH REMOVER [address] [place] [address] Referral ID Status Reason Start Date Expiration Date Visits Requested Visits Authorized [id number] Authorized PCP Requested Referral 09/08/2022 09/08/2023 1 1 Specialty Diagnoses / Procedures Referred By Contac t Referred To Contact Diagnoses Obesity, Class II, BMI 35-39.9 Type 2 diabetes mellitus without complication, without long-term current use of insulin (HCC) Procedures [facility] OFFICE/OUTPATIENT NEW HIGH MDM 60-74 MINUTES Ana, JONG Melgar.FINISH REMOVER [address] [place] [address] Referral ID Status Reason Start Date Expiration Date Visits Requested Visits Authorized [id number] Authorized PCP Requested Referral 11/10/2021 11/10/2022 1 1 Additional Source Comments INFORMATION SOURCE (unrecogn ized section and content) DATE CREATED AUTHOR 12/04/2019 [facility] DATE CREATED AUTHOR AUTHOR'S ORGANIZ ATION 05/01/2020 [facility] DATE CREATED AUTHOR AUTHOR'S ORGANIZ ATION 06/03/2022 [facility] DATE CREATED AUTHOR AUTHOR'S ORGANIZ ATION 03/30/2023 [facility] ([place]) DATE CREATED AUTHOR AUTHOR'S ORGANIZ ATION 04/16/[address] [facility] DATE CREATED AUTHOR AUTHOR'S ORGANIZ ATION 03/11/2025 [facility] Goals (unrecognized section and content) Goals may be documented in a n alternate section Source Comments (unrecognize d section and content) In the event this informatio n is protected by the Federal Confidentiality of Alcohol and Drug Abuse Patient Records regulations: The Federal rules restrict any use of the information to criminally investigate or prosecute any alcohol or drug abuse patient.[facility] HospitalIn the event this information is protected by the Federal Confidentiality of Alcohol and Drug Abuse Patient Records regulations: The Federal rules restrict any use of the information to criminally investigate or prosecute any alcohol or drug abuse patient.[facility] HospitalIn the event this information is protected by the Federal Confidentiality of Alcohol and Drug Abuse Patient Records regulations: The Federal rules restrict any use of the information to criminally investigate or prosecute any alcohol or drug abuse patient.[facility] HospitalIn the event this information is protected by the Federal Confidentiality of Alcohol and Drug Abuse Patient Records regulations: The Federal rules restrict any use of the information to criminally investigate or prosecute any alcohol or drug abuse patient.[facility] HospitalIn the event this information is protected by the Federal Confidentiality of Alcohol and Drug Abuse Patient Records regulations: The Federal rules restrict any use of the information to criminally investigate or prosecute any alcohol or drug abuse patient.[facility] HospitalIn the event this information is protected by the Federal Confidentiality of Alcohol and Drug Abuse Patient Records regulations: The Federal rules restrict any use of the information to criminally investigate or prosecute any alcohol or drug abuse patient.[facility] HospitalIn the event this information is protected by the Federal Confidentiality of Alcohol and Drug Abuse Patient Records regulations: The Federal rules restrict any use of the information to criminally investigate or prosecute any alcohol or drug abuse [facility] the event this information is protected by the Federal Confidentiality of Alcohol and Drug Abuse Patient Records regulations: The Federal rules restrict any use of the information to criminally investigate or prosecute any alcohol or drug abuse patient.[facility] Reason for Visit (unrecogniz ed section and content) Reason Comments STD Reason Comments New Fracture Reason Comments Orders Reason Comments No Show Reason Comments Vaginal Problem Reason Comments Diabetes Type 2 diabetes Reason Comments Results Care Teams (unrecognized sec tion and content) Color Dipper Relationship Specialty Start Date End Date Geoffrey White MD [address] [facility] [place] [address] PCP - General Internal Medicine 03/24/21 Color Dipper Relationship Specialty Start Date End Date Geoffrey White MD [address] [facility] [place] [address] PCP - General Internal Medicine 03/24/21 Color Dipper Relationship Specialty Start Date End Date Geoffrey White MD [address] [facility] [place] [address] PCP - General Internal Medicine 03/24/21 Color Dipper Relationship Specialty Start Date End Date Geoffrey White MD [address] [facility] [place] [address] PCP - General Internal Medicine 03/24/21 Color Dipper Relationship Specialty Start Date End Date Geoffrey White MD [address] [facility] [place] [address] PCP - General Internal Medicine 03/24/21 Team [...] Geoffrey White MD Primary Care Provider Active David WRIGHT PA Attending Provider, Referring Provi sally Active Color Dipper Relationship Specialty Start Date End Date Geoffrey White MD [address] [facility] [place] [address] PCP - General Internal Medicine 03/24/21 Color Dipper Relationship Specialty Start Date End Date Geoffrey White MD [address] [facility] [place] [address] PCP - General Internal Medicine 03/24/21 Team Status: Active Member Role Status Dates Gideon Alford 3D MODELER, 3D MODELER-C Primary Care Provider Active Team Status: Inactive Member Role Status Dates Gideon Alford NP, 3D MODELER-C Primary Care Provider Active Start: November 03, 2024 End: November 03, 2024 Dr. Norman Martinez DO Emergency Provider Active Start : November 03, 2024 End: November 03, 2024 Team Status: Active Member Role/Relationship Status Dates Gideon Alford 3D MODELER, 3D MODELER-C Primary Care Provider Active Team Status: Inactive Member Role/Relationship Status Dates Gideon Alford 3D MODELER, 3D MODELER-C Primary Care Provider Active Start: November 03, 2024 End: November 03, 2024 Dr. Norman Martinez DO Attending Provider Active Start : November 03, 2024 End: November 03, 2024 Dr. Norman Martinez DO Emergency Provider Active Start : November 03, 2024 End: November 03, 2024 Team Status: Inactive Member Role/Relationship Status Dates Gideon Alford 3D MODELER, 3D MODELER-C Primary Care Provider Active Start: December 09, 2024 End: December 09, 2024 Jatin Tloliver MD Emergency Provider Active Star t: December 09, 2024 End: December 09, 2024 Team Status: Active Member Role/Relationship Status Dates Zebulun Beam VSC, 3D MODELER-C Primary care physician Active Team Status: Inactive Member Role/Relationship Status Dates Gideon Alford NP, 3D MODELER-C Primary care physician Active Start: November 03, 2024 End: November 03, 2024 Dr. Norman Martinez DO Attending physician Active Star t: November 03, 2024 End: November 03, 2024 Dr. Norman Martinez DO Emergency Department Physician Active Start: November 03, 2024 End: November 03, 2024 Team Status: Inactive Member Role/Relationship Status Dates Gideon Alford 3D MODELER, 3D MODELER-C Primary care physician Active Start: December 09, 2024 End: December 09, 2024 Jatin Tolliver MD Attending physician Active Sta rt: December 09, 2024 End: December 09, 2024 Jatin Tolliver MD Emergency Department Physician Activ e Start: December 09, 2024 End: December 09, 2024 Team Status: Inactive Member Role/Relationship Status Dates Zebulun Beam VSC, 3D MODELER-C Primary care physician Active Start: January 29, 2025 End: January 29, 2025 Zebulun Beam VSC, 3D MODELER-C Attending physician Active Start: January 29, 2025 End: January 29, 2025 Cruz Jimenez VSC, 3D MODELER-C Referring Provider Active Start: January 29, 2025 End: January 29, 2025 Care Team (unrecognized sect ion and content) Care Team Personnel Name: GEOFFREY WHITE MD Member Role: Primary Care Physician Address: Address: [address] [place] [address] Care Team Related Persons Name: SHRUTHI GRIGGS Name: SHRUTHI GRIGGS Name: SHRUTHI ZHANG Name: OSMEL SONI Name: RITESH ACEVEDO Address: Home [address] [place] [address] Care Team Personnel Name: GEOFFREY WHITE MD Member Role: Primary Care Physician Address: Address: [address] [place] [address] Care Team Related Persons Name: SHRUTHI GRIGGS Name: SHRUTHI GRIGGS Name: SHRUTHI ZHANG Name: OSMEL SONI Name: RITESH ACEVEDO Address: [address] FOR RECORDS PERTAINING TO PATIENTS WHO [...] BE BASED ON THE PRIMARY CLINICAL RECORDS. [employer] provides no warranty or guarantee of the accuracy or completeness of information in this document.
--- NOTE | 2025-05-01 13:07 | NEURO ---
NCS and/or EMG Patient Report Ordering Doctor: Gene Jimenez DATE OF SERVICE: 05/01/25 Monique presents complaints of numbness and tingling in the hands, worse on the right side. Electrodiagnostic findings: Right median motor nerve demonstrates significantly prolonged distal latency with reduced amplitude and reduced conduction velocity. Left median motor nerve demonstrates prolonged distal latency with normal amplitude and reduced conduction velocity. Normal ulnar motor response bilaterally. Normal median and ulnar F?waves. Absent right median sensory latency at the wrist and palm. Left median sensory latency is prolonged at the wrist. Normal ulnar and radial sensory responses. Needle EMG testing was performed in the upper limbs. All muscles tested showed no evidence of denervation with normal motor unit action potentials. Electrodiagnostic impression: This is an abnormal study. 1. Electrodiagnostic findings suggestive of bilateral median mononeuropathy. This is consistent with a severe right carpal tunnel syndrome and a mild to moderate left carpal tunnel syndrome. Multi Select Codes Neurology Neurology Interp Codes: 25979-95 Musc test done w/n test comp (interp) (2) and 43528-54 Nrv cndj test 11-12 studies (interp)
== END | disposition home or self-care (01) ==
LOC: PSN 07:26
DX: R20.2 Paresthesia of skin (principal)
CPT/HCPCS: 95886; 95912